=== PATIENT | female | born 1985 | race Two or more races ===

== ENCOUNTER 2024-04-04 20:10 | Observation (INO) | payer OTHER, SELFPAY ==
[2024-04-04] VITALS (23 sets, daily range): BP systolic 108–138; BP diastolic 81–108; PULSE 95–114; TEMP 36.6; O2SAT 93–97; BMI 36.0
--- NOTE | 2024-04-04 20:50 | ED_ITS ---
HPI HPI - General Adult General Chief complaint: Shortness of Breath/Dyspnea Stated complaint: SHORTNESS OF BREATH Time Seen by Provider: 04/04/24 20:32 Source: patient Mode of arrival: walk-in Limitations: no limitations History of Present Illness HPI narrative: patient describes taking omeprazole at the end of february and experiencing an atypical side effect of swelling bilat neck . States she stop omeprazole 4 days after beginning omeprazole. States was seen at another hospital and prescribed 5 day course of steroids that she completed yesterday. Does feel it made any difference. States she will occ choked when swallowing and gag it back up. not short of breath. No fever or sore throat Related Data Previous Rx's ?Medication ?Instructions ?Recorded enoxaparin 80 mg/0.8 mL 80 mg (0.8 mL) subcut Q12H 30 days 04/05/24 subcutaneous syringe (Lovenox) #48 mL hydroxyzine HCl 25 mg tablet 25 mg PO Q8H PRN anxiety #30 tabs 04/05/24 Allergies Allergy/AdvReac Type Severity Reaction Status Date / Time No Known Drug Allergies Allergy Verified 04/04/24 20:19 Opioid HPI Opioid Management Most Recent Opioid Data: Last Pain Scale 7 04/06/24 18:01 Last Pain Assessment 04/05/24 12:03 Last MAR Pain Assessment 04/06/24 18:01 Last ORT Total Score 1 04/05/24 02:14 Last ORT Risk Category Low Risk 04/05/24 02:14 Review of Systems ROS Status of ROS 10 or more systems reviewed and unremark able except as noted in history and below PFSH PFSH Medical History (Updated 04/06/24 @ 17:55 by Dionicio Albright MD) Post hysterectomy menopause ?E89.40 - Asymptomatic postprocedural ovarian failure (ICD-10) ?Z90.710 - Acquired absence of both cervix and uterus (ICD-10) Fibroid ?D21.9 - Benign neoplasm of connective and other soft tissue, unspecified (ICD-10) Surgical History (Updated 04/05/24 @ 10:19 by Shaikh Janna MD) H/O: hysterectomy ?Z90.710 - Acquired absence of both cervix and uterus (ICD-10) Social History Highest level of school completed/degree received: 3rd grade Gender Identity: female Exam Constitutional Vital Signs, click to edit/add: Last Vital Signs Temp 98.4 F 04/05/24 07:26 Pulse 116 H 04/05/24 09:53 Resp 16 04/05/24 07:26 BP 125/85 04/05/24 07:26 Pulse Ox 96 04/05/24 09:53 O2 Del Method Room Air 04/05/24 07:26 Common normals: no apparent distress, oriented x3, no limitations, healthy appearing, alert and well nourished [facility] Common normals: normocephalic and head/scalp atraumatic Eye Common normals: EOMs intact bilaterally and conjunctivae normal Neck & C-Spine Common normals: full ROM, no lymphadenopathy and supple Other: neg stridor Respiratory Common normals: normal respiratory effort, no retractions, no use of accessory muscles and clear to auscultation bilaterally Cardio Common normals: regular rate, regular rhythm, S1 normal heart sound and S2 normal heart sound GI Common normals: Normal to inspection, nondistended, normoactive bowel sounds present, soft to palpation and non-tender Extremity Common normals: normal to inspection and full ROM Neuro Common normals: oriented x3, CN's II-XII intact bilaterally, moves all extremities and no focal motor deficits Psych Appearance: grossly normal Course Vital Signs Vital signs: Vital Signs Temperature 97.9 F 04/04/24 20:19 Pulse Rate 109 H 04/04/24 20:19 Respiratory Rate 16 04/04/24 20:19 Blood Pressure 138/108 H 04/04/24 20:19 Pulse Oximetry 95 04/04/24 20:19 Oxygen Delivery Method Room Air 04/04/24 20:19 Temperature 98.4 F 04/05/24 07:26 Pulse Rate 116 H 04/05/24 09:53 Respiratory Rate 16 04/05/24 07:26 Blood Pressure 125/85 04/05/24 07:26 Pulse Oximetry 96 04/05/24 09:53 Oxygen Delivery Method Room Air 04/05/24 07:26 Medical Decision Making MDM Narrative Medical decision making narrative: patient presents complaining of puffiness and swelling of her neck for the past month. Was seen at [place] last week with the same complaint. Prescribe course of steroids that she completed yesterday. States it did not help and came here to be seen. Ate [employer] chicken this afternoon. Able to eat and drink but has some discomfort with swallowing. no difficulty breathing. No fever. Exam unremarkable except for puffiness about her neck and palpable lymph nodes. oral pharynx and uvula normal. no stridor and patient observed drinking fluids without gagging. CT with finding of large mediastinal mass and finding suggesting thrombus within the left IJ, subclavian and axillary veins. Discussed with vascular surgery at [facility] and with thoracic surgeon Dr Anderson at [facility]. [place] the patient needed to be anticoagulated but could have remaining workup as an out patient as she had no respiratory issues and was eating and drinking. Discussed with Dr Erickson oncologist and added labs to r/o rapid lymphoma. He felt she needed a biopsy and recommended observation tonight and he could consult with Dr White tomorrow. If Christopher was uncomfortable performing the procedure he could help to facilitate transfer to another facility where the procedure could be performed. Patient given dose of Lovenox and informed of the plan. She is sitting comfortably in no distress at this time Lab Data Labs: Lab Results 04/04/24 Range/Units 21:07 WBC 11.9 H (4.0-11.0) 10^3/uL RBC 5.53 H (4.20-5.40) 10^6/uL Hgb 13.5 (12.0-16.0) g/dL Hct 44.7 (36.0-48.0) % MCV 80.8 L (81.0-99.0) fL MCH 24.4 L (26.7-34.0) pg MCHC 30.2 (29.9-35.2) g/dL RDW 15.9 H (11.0-15.0) % Plt Count 461 H (150-450) 10^3/uL MPV 9.1 L (9.5-13.5) fL Neut % (Auto) 59.2 (43.0-75.0) % Lymph % (Auto) 27.2 (20.5-60.0) % Gonzales % (Auto) 9.0 (1.7-12.0) % Eos % (Auto) 2.2 (0.9-7.0) % Baso % (Auto) 0.6 (0.2-2.0) % Neut # (Auto) 7.1 H (1.4-6.5) 10^3/uL Lymph # (Auto) 3.2 (1.2-3.8) 10^3/uL Gonzales # (Auto) 1.1 H (0.3-0.8) 10^3/uL Eos # (Auto) 0.3 (0.0-0.7) 10^3/uL Baso # (Auto) 0.1 (0.0-0.1) 10^3/uL Abs Immat Gran (auto) 0.21 H (0.00-0.03) 10^3/uL Imm/Tot Granulo (auto) 1.8 H (0.0-0.5) % ESR >130 H (<=20) mm/hr Sodium 137 (136-145) mmol/L Potassium 3.4 L (3.5-5.1) mmol/L Chloride 99 (98-107) mmol/L Carbon Dioxide 26.0 (21.0-32.0) mmol/L Anion Gap 15.4 BUN 17.0 (7.0-18.0) mg/dL Creatinine 0.75 (0.55-1.02) mg/dL Est GFR ( Amer) >60 (>=60) Est GFR (Non-Af Amer) >60 (>=60) BUN/Creatinine Ratio 22.7 Glucose 86 (74-106) mg/dL Uric Acid 4.3 (2.6-6.0) mg/dL Calcium 9.1 (8.5-10.1) mg/dL Total Bilirubin 0.9 (0.2-1.0) mg/dL AST 66 H (15-37) U/L ALT 151 H (14-59) U/L Alkaline Phosphatase 176 H (46-116) U/L Lactate Dehydrogenase 373 H (81-234) U/L C-Reactive Protein 2.27 H (<=0.50) mg/dL Total Protein 8.7 H (6.4-8.2) g/dL Albumin 3.6 (3.4-5.0) g/dL Globulin 5.1 g/dL Albumin/Globulin Ratio 0.7 Procalcitonin <0.05 (0.00-0.50) ng/mL TSH 3.065 (0.358-3.740) uIU/mL Free T4 1.38 (0.76-1.46) ng/dL Imaging Data Chest x-ray: Radiologist's impression: ITS Impressions Soft Tissue Neck CT 04/04/24 20:57 IMPRESSION: 1. Large mediastinal mass with arterial encasement and compression of the superior vena cava. 2. Additional findings suggesting thrombus within the left internal jugular vein, as well as both subclavian and axillary veins. 3. An associated retropharyngeal effusion and edema within the neck is likely related to central venous obstruction. 4. Irregular patchy region of opacity within the anterior right lung could reflect infiltrate and/or a mass. 5. A dedicated CT of the chest is recommended for further assessment of the mediastinum and lungs. Electronically authenticated by: KEVEN DELEON Date: 04/04/2024 22:09 ADDENDUM: 04/05/24 0229 IMPRESSION: 1. Large mediastinal mass with arterial encasement and compression of the superior vena cava. 2. Additional findings suggesting thrombus within the left internal jugular vein, as well as both subclavian and axillary veins. 3. An associated retropharyngeal effusion and edema within the neck is likely related to central venous obstruction. 4. Irregular patchy region of opacity within the anterior right lung could reflect infiltrate and/or a mass. 5. A dedicated CT of the chest is recommended for further assessment of the mediastinum and lungs. Electronically authenticated by: KEVEN DELEON Date: 04/05/2024 02:[address] 04/04/24 23:08 IMPRESSION: 1. Very large soft tissue mass in the anterior mediastinum with extension along the superior mediastinum and most likely in the right hilum measuring 10.9 x 3.8 x 15.0 cm. There is mass effect on the eduardo and left mainstem bronchus. Differential considerations include lymphoma, teratoma and thymoma. Contrast-enhanced imaging is recommended for better characterization of the mass. 2. Ill defined nodular density in the right upper lobe which could be secondary to a neoplastic nodule or developing pneumonia. 3. Inhomogeneous attenuation of the liver which may represent inhomogeneous fatty infiltration. An infiltrative process of the liver cannot entirely be excluded. This could be better characterized with nonemergent hepatic protocol MRI. 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
--- NOTE | 2024-04-04 20:57 | CT_ITS ---
The [address] [address] Patient Name: SONYA MEYER MRN: [id number] date: 1985 Sex: F Assigned Patient Location: ER Current Patient Location: ER Accession/Order Number: [id number] Exam Date: 04/04/2024 21:20 Report Date: 04/04/2024 22:09 At the request of: ABBI VYAS Procedure: CT soft tissue neck w con EXAM: CT soft tissue neck w con HISTORY: bilat neck swelling COMPARISON: None. TECHNIQUE: Axial images of the neck were obtained following the intravenous administration of contrast. Sagittal and coronal reformations were provided. FINDINGS: There is a large mediastinal mass encases the brachiocephalic and left common carotid at their common origin from the aortic arch. Tumor is also seen to partially encase the left subclavian artery at its origin and compress the left superior vena cava. Abnormal intravascular filling defects left internal jugular vein, as well as both subclavian and axillary veins is suggestive of thrombus. An associated retropharyngeal effusion and edema within the neck is likely related to central venous obstruction. Asymmetrically prominent lymph nodes within the lower left neck are noted and may be pathologic. The pharynx, larynx and trachea appear normal. The thyroid enhances homogeneously. The salivary glands and intracranial contents are normal in appearance. There is an irregular patchy region of opacity within the anterior right lung which could reflect infiltrate and/or mass. The left lung is well-aerated. The No bony destructive process. The visualized paranasal sinuses and mastoids are well-aerated. CT/CT soft tissue neck w con IMPRESSION: 1. Large mediastinal mass with arterial encasement and compression of the superior vena cava. 2. Additional findings suggesting thrombus within the left internal jugular vein, as well as both subclavian and axillary veins. 3. An associated retropharyngeal effusion and edema within the neck is likely related to central venous obstruction. 4. Irregular patchy region of opacity within the anterior right lung could reflect infiltrate and/or a mass. 5. A dedicated CT of the chest is recommended for further assessment of the mediastinum and lungs. Electronically authenticated by: KEVEN DELEON Date: 04/04/2024 22:09
--- NOTE | 2024-04-04 21:09 | ECG_ITS ---
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
[2024-04-04 21:14] LABS: Basophils Absolute Auto 0.1 10^3/uL (0.0-0.1); Basophils Percent Auto 0.6 % (0.2-2.0); Eosinophils Absolute Auto 0.3 10^3/uL (0.0-0.7); Eosinophils Percent Auto 2.2 % (0.9-7.0); Hematocrit 44.7 % (36.0-48.0); Hemoglobin 13.5 g/dL (12.0-16.0); Immature Granulocytes Abs Auto 0.21 10^3/uL (0.00-0.03); Immature Granulocytes Pct Auto 1.8 % (0.0-0.5); Lymphocytes Absolute Auto 3.2 10^3/uL (1.2-3.8); Lymphocytes Percent Auto 27.2 % (20.5-60.0); Mean Corpuscular HGB Conc 30.2 g/dL (29.9-35.2); Mean Corpuscular Hemoglobin 24.4 pg (26.7-34.0); Mean Corpuscular Volume 80.8 fL (81.0-99.0); Mean Platelet Volume 9.1 fL (9.5-13.5); Monocytes Absolute Auto 1.1 10^3/uL (0.3-0.8); Neutrophils Absolute Auto 7.1 10^3/uL (1.4-6.5); Neutrophils Percent Auto 59.2 % (43.0-75.0); Platelet Count 461 10^3/uL (150-450); Red Blood Count 5.53 10^6/uL (4.20-5.40); Red Cell Distribution Width 15.9 % (11.0-15.0); White Blood Count 11.9 10^3/uL (4.0-11.0)
--- NOTE | 2024-04-04 21:14 | PC.NURSE ---
Pt reports upper anterior neck pain and swelling, no visible swelling noted but reports it is more swollen than normal. Pts airway is intact. Pt has no crepitus upon palpation of neck. Pt has left sided chest pain after palpation. Denies cardiac hx.
[2024-04-04 21:28] LABS: Alanine Aminotransferase 151 U/L (14-59); Albumin Globulin Ratio 0.7; Albumin Level 3.6 g/dL (3.4-5.0); Alkaline Phosphatase 176 U/L (46-116); Anion Gap 15.4; Aspartate Amino Transferase 66 U/L (15-37); BUN Creatinine Ratio 22.7; Bilirubin Total 0.9 mg/dL (0.2-1.0); Calcium 9.1 mg/dL (8.5-10.1); Chloride 99 mmol/L (98-107); Erythrocyte Sedimentation Rate >130 mm/hr (<=20); Estimated GFR (African America >60 (>=60); Estimated GFR (Non-African Ame >60 (>=60); Globulin 5.1 g/dL; Glucose 86 mg/dL (74-106); Potassium 3.4 mmol/L (3.5-5.1); Sodium 137 mmol/L (136-145); Total Protein 8.7 g/dL (6.4-8.2)
[2024-04-04 21:36] LABS: Free T4 1.38 ng/dL (0.76-1.46)
[2024-04-04 21:37] LABS: C Reactive Protein 2.27 mg/dL (<=0.50); Thyroid Stimulating Hormone 3.065 uIU/mL (0.358-3.740)
--- NOTE | 2024-04-04 23:08 | CT_ITS ---
[address] [address] Patient Name: SONYA MEYER MRN: [id number] date: 1985 Sex: F Assigned Patient Location: ER Current Patient Location: Accession/Order Number: [id number] Exam Date: 04/04/2024 23:15 Report Date: 04/05/2024 00:16 At the request of: ABBI VYAS Procedure: CT chest wo con EXAMINATION:CT chest wo con INDICATION:mass COMPARISON:No prior chest CT for comparison. TECHNIQUE:Thin section transaxial slices were acquired through the chest. Coronal and sagittal reconstructed images were reviewed. IV CONTRAST:Without FINDINGS: LUNGS: There is an ill defined airspace nodularity in the right upper lobe measuring 2.9 x 1.6 cm which is nonspecific. This could represent a neoplastic nodule versus developing infection. PLEURAL CAVITY: No pleural effusion. MEDIASTINUM: There is mass effect on the eduardo and left mainstem bronchus. HEART: There is no coronary artery calcification. VASCULAR:The thoracic aorta is normal in caliber. LYMPH NODES:There is a very large soft tissue mass which is present in the anterior mediastinum with extension along the superior mediastinum. There is probable extension into the right hilum. It is difficult to give an accurate measurement of the mass without the use of intravenous contrast. Approximate measurement is 10.9 x 3.8 x 15.0 cm. ] CHEST WALL/AXILLA: Chest wall and axilla are unremarkable. BONES: Osseous structures are unremarkable. VISUALIZED UPPER ABDOMEN: There is inhomogeneous attenuation of the liver which is nonspecific. This could represent inhomogeneous fatty infiltration of the liver. An infiltrative process within the liver cannot be excluded. CT/CT chest wo con IMPRESSION: 1. Very large soft tissue mass in the anterior mediastinum with extension along the superior mediastinum and most likely in the right hilum measuring 10.9 x 3.8 x 15.0 cm. There is mass effect on the eduardo and left mainstem bronchus. Differential considerations include lymphoma, teratoma and thymoma. Contrast-enhanced imaging is recommended for better characterization of the mass. 2. Ill defined nodular density in the right upper lobe which could be secondary to a neoplastic nodule or developing pneumonia. 3. Inhomogeneous attenuation of the liver which may represent inhomogeneous fatty infiltration. An infiltrative process of the liver cannot entirely be excluded. This could be better characterized with nonemergent hepatic protocol MRI. Electronically authenticated by: CORDELL PARK Date: 04/05/2024 00:16
[2024-04-04 23:41] LABS: Lactate Dehydrogenase 373 U/L (81-234); Uric Acid 4.3 mg/dL (2.6-6.0)
[2024-04-05] VITALS (17 sets, daily range): BP systolic 110–147; BP diastolic 59–85; PULSE 100–118; TEMP 36.6–36.9; O2SAT 90–98; BMI 36.8
[2024-04-05] MEDS: ENOXAPARIN SODIUM 80 MG/0.8 ML SYRINGE SUBQ ×2 (00:10→08:19)
[2024-04-05 02:06] LABS: PROCALCITONIN <0.05 ng/mL (0.00-0.50)
[2024-04-05] MEDS: POTASSIUM CHLORIDE IN WATER 10 MEQ/100 ML PIGGYBACK 100 MEQ IV (03:08)
[2024-04-05 04:48] LABS: Basophils Absolute Auto 0.1 10^3/uL (0.0-0.1); Basophils Percent Auto 0.5 % (0.2-2.0); Eosinophils Absolute Auto 0.1 10^3/uL (0.0-0.7); Eosinophils Percent Auto 1.1 % (0.9-7.0); Hematocrit 44.2 % (36.0-48.0); Hemoglobin 13.1 g/dL (12.0-16.0); Immature Granulocytes Abs Auto 0.18 10^3/uL (0.00-0.03); Immature Granulocytes Pct Auto 1.4 % (0.0-0.5); Lymphocytes Absolute Auto 2.3 10^3/uL (1.2-3.8); Lymphocytes Percent Auto 17.9 % (20.5-60.0); Mean Corpuscular HGB Conc 29.6 g/dL (29.9-35.2); Mean Corpuscular Hemoglobin 24.6 pg (26.7-34.0); Mean Corpuscular Volume 82.9 fL (81.0-99.0); Mean Platelet Volume 9.9 fL (9.5-13.5); Monocytes Absolute Auto 0.9 10^3/uL (0.3-0.8); Monocytes Percent Auto 7.1 % (1.7-12.0); Neutrophils Absolute Auto 9.4 10^3/uL (1.4-6.5); Platelet Count 424 10^3/uL (150-450); Red Blood Count 5.33 10^6/uL (4.20-5.40); Red Cell Distribution Width 16.2 % (11.0-15.0); White Blood Count 13.1 10^3/uL (4.0-11.0)
--- NOTE | 2024-04-05 04:54 | PC.NURSE ---
Attempted to start IV medications. Patient got anxious and pursed lipped breathing and sweaty. Iv stopped vitals checked at this time and all within norml limits. IV site checked. No red guillen or streaking and skin same temp throughout. Allowed patient to calm down and attempted to restart at a slower rate. Patient again became anxious. IV stopped and Ofelia.Chasidy. notified.
[2024-04-05 05:10] LABS: Alanine Aminotransferase 146 U/L (14-59); Albumin Globulin Ratio 0.7; Albumin Level 3.5 g/dL (3.4-5.0); Alkaline Phosphatase 179 U/L (46-116); Anion Gap 14.5; Aspartate Amino Transferase 76 U/L (15-37); BUN Creatinine Ratio 25.5; Bilirubin Total 1.3 mg/dL (0.2-1.0); Calcium 9.3 mg/dL (8.5-10.1); Carbon Dioxide 22.2 mmol/L (21.0-32.0); Chloride 98 mmol/L (98-107); Estimated GFR (African America >60 (>=60); Estimated GFR (Non-African Ame >60 (>=60); Globulin 5.1 g/dL; Glucose 82 mg/dL (74-106); Potassium 3.7 mmol/L (3.5-5.1); Sodium 131 mmol/L (136-145); Total Protein 8.6 g/dL (6.4-8.2)
[2024-04-05 05:14] LABS: Magnesium 2.4 mg/dL (1.8-2.4)
[2024-04-05] MEDS: DEXTROSE 5%-0.9% NACL 1,000 ML 1,000 ML 100 ML IV (08:19)
--- NOTE | 2024-04-05 10:13 | PM.HP ---
HPI H&P: HPI History of Present Illness Chief complaint: SHORTNESS OF BREATH SUPERIOR VENACAVA SYNDROME Narrative: HPI and Hospital Course 38-year-old female with no significant past medical history presented to ER last evening with neck swelling, dysphagia that has progressively gotten worse over the past 2 months. She started to feel neck swelling and mild difficulty in swallowing about 2 months ago that progressively got worse and until about 1 week ago she went to [place] [facility] where she was prescribed prednisone and Benadryl. She took her medications with no improvement in her symptoms whatsoever and was evaluated in ER last evening. She had a CT of neck and chest that showed subclavian/internal jugular and axillary vein thrombosis along with large mediastinal mass with mass effect on eduardo and left main bronchus. ER provider is with vascular and thoracic surgery at [facility] felt that patient can be worked up as outpatient given that she is tolerating oral diet and has no respiratory distress. ER provider also had consultation with oncology who felt in overnight observation is not unreasonable given her symptoms and presentation. She was started on subcutaneous Lovenox for deep vein thrombosis. I discussed her case with oncology who will see her in their office tomorrow. Given that patient has no respiratory distress and tolerating oral diet, it is felt that she can be worked up as outpatient which oncology will set her up for at [facility]. This was discussed in great length with patient and she was comfortable injecting Lovenox herself. She has previously injected subcutaneous insulin to her dad. Patient denies fever or chills. Reports weight loss of about 5 pounds in 2 months. She has no personal history of cancer. She had hysterectomy about 2 years ago for large fibroids. She also denies significant family history of cancer Opioid HPI Opioid Management Most Recent Pain and Opioid Data: Last Pain Assessment 04/05/24 09:57 Last ORT Total Score 1 04/05/24 02:14 Last ORT Risk Category Low Risk 04/05/24 02:14 Review of Systems ROS Status of ROS 10 or more systems reviewed and unremarkable except as noted in history and below [facility] Medical History (Updated 04/05/24 @ 10:21 by Shaikh Janna MD) Post hysterectomy menopause ?E89.40 - Asymptomatic postprocedural ovarian failure (ICD-10) ?Z90.710 - Acquired absence of both cervix and uterus (ICD-10) Fibroid ?D21.9 - Benign neoplasm of connective and other soft tissue, unspecified (ICD-10) Surgical History (Updated 04/05/24 @ 10:19 by Shaikh Janna MD) H/O: hysterectomy ?Z90.710 - Acquired absence of both cervix and uterus (ICD-10) Social History Highest level of school completed/degree received: 3rd grade Gender Identity: female Meds Home Medications and Allergies Home Medications ?Medication ?Instructions ?Recorded ?Confirmed ?Type No Known Home Medications 04/04/24 04/04/24 History Allergies Allergy/AdvReac Type Severity Reaction Status Date / Time No Known Drug Allergies Allergy Verified 04/04/24 20:19 Exam Constitutional Vital Signs, click to edit/add: Last Vital Signs Temp 98.4 F 04/05/24 07:26 Pulse 116 H 04/05/24 09:53 Resp 16 04/05/24 07:26 BP 125/85 04/05/24 07:26 Pulse Ox 96 04/05/24 09:53 O2 Del Method Room Air 04/05/24 07:26 Documenting provider has reviewed patient's vital signs: yes Common normals: no apparent distress and oriented x3 General appearance: cooperative Neck & C-Spine Other: Neck swelling noted. Respiratory Common normals: normal respiratory effort and clear to auscultation bilaterally Effort & inspection: able to speak in complete sentences Auscultation: clear to auscultation bilaterally Cardio Common normals: regular rate, S1 normal heart sound and S2 normal heart sound Rate: regular rate Heart sounds: S1 normal and S2 normal GI Common normals: Normal to inspection, nondistended, normoactive bowel sounds present, soft to palpation, non-tender and no hepatosplenomegaly Palpation: soft and no hepatosplenomegaly Extremity Common normals: no clubbing, cyanosis or edema Neuro Common normals: oriented x3, moves all extremities and no focal motor deficits Psych Common normals: mental status grossly normal, denies hallucinations, denies homicidal ideation and denies suicidal ideation Results Labs Labs: Short CBC 04/04/24 04/05/24 Range/Units 21:07 04:04 WBC 11.9 H 13.1 H (4.0-11.0) 10^3/uL Hgb 13.5 13.1 (12.0-16.0) g/dL Hct 44.7 44.2 (36.0-48.0) % Plt Count 461 H 424 (150-450) 10^3/uL BMP 04/04/24 04/05/24 21:07 04:04 Sodium 137 131 L Potassium 3.4 L 3.7 Chloride 99 98 Carbon Dioxide 26.0 22.2 BUN 17.0 13.0 Creatinine 0.75 0.51 L Glucose 86 82 Calcium 9.1 9.3 Liver Function 04/04/24 04/05/24 Range/Units 21:07 04:04 Total Bilirubin 0.9 1.3 H (0.2-1.0) mg/dL AST 66 H 76 H (15-37) U/L ALT 151 H 146 H (14-59) U/L Alkaline Phosphatase 176 H 179 H (46-116) U/L Albumin 3.6 3.5 (3.4-5.0) g/dL Assessment and Plan Assessment and Plan (1) Superior vena cava compression syndrome: Assessment and Plan: Due to large superior mediastinal mass. No respiratory compromise and patient tolerating oral diet. Follow-up appointment with oncology tomorrow and further workup will be pursued as outpatient (2) DVT (deep venous thrombosis): Assessment and Plan: Provoked DVT -will discharge on subcutaneous Lovenox as she is anticipated to require biopsy. She can be transition to DOAC's once she has had biopsy. Qualifiers: DVT location: non-extremity vein Chronicity: acute Qualified Code(s): I82.90 - Acute embolism and thrombosis of unspecified vein (3) Mediastinal mass: Assessment and Plan: Large superior mediastinal mass with mass effect on eduardo and left main bronchus along with superior vena cava syndrome and deep vein thrombosis of subclavian, internal jugular and axillary veins. No evidence of respiratory compromise and patient is tolerating oral diet. She will need outpatient workup and follow-up. She has an appointment with oncology tomorrow (4) Elevated liver enzymes: Assessment and Plan: Likely nonalcoholic fatty liver disease. Outpatient follow-up (5) Dysphagia: Assessment and Plan: Mild dysphagia with hard foods. Tolerating soft diet. Continue with same. Qualifiers: Dysphagia type: oropharyngeal phase Qualified Code(s): R13.12 - Dysphagia, oropharyngeal phase (6) Abnormal CT of liver: Assessment and Plan: Possible fatty infiltration but given her current diagnosis, will need further inquiry to make sure these do not represent metastatic changes (7) Shortness of breath: Assessment and Plan: Mild shortness of breath things on exertion but otherwise comfortable on room air. No evidence of respiratory compromise. Stable for discharge and outpatient workup
--- NOTE | 2024-04-05 12:08 | CM.NOTE ---
Rounds made with Dr. Saldivar. Discussed plan of care and lab & imaging results w Samina. Samina verbalized understanding. Discussed options of possible transfer for further care or to discharge home on Lovenox sq, to followup with Oncology and have them set up bronchoscopy as an outpatient. Samina states she would be ok with giving herself Lovenox injections and would like to see oncology as outpt and then have bronchoscopy. Plan is for patient to be discharged today and to followup with Oncology, Dr Erickson tomorrow.
--- NOTE | 2024-04-06 15:46 | CM.DCFOLLOWU ---
1st attempt 04/06/24
--- NOTE | 2024-04-07 15:10 | CM.DCFOLLOWU ---
Patient back in ED yesterday and was transferred to [facility]
== END 2024-04-05 12:13 | disposition home or self-care (01) ==
LOC: ER 04-05 01:33 → MS 04-05 02:12
PROVIDERS: Registered Nurse; Admitting Provider Internal Medicine; Emergency Provider Internal Medicine; PCP Family Medicine; Visit Provider Internal Medicine
DX: I87.1 Compression of vein (principal); I82.890 Acute embolism and thrombosis of other specified veins; J98.59 Other diseases of mediastinum, not elsewhere classified; R74.8 Abnormal levels of other serum enzymes; R13.12 Dysphagia, oropharyngeal phase; R93.2 Abnormal findings on diagnostic imaging of liver and biliary tract; R06.02 Shortness of breath
CPT/HCPCS: 36415; 70491; 71250; 80053; 83615; 83735; 84145; 84439; 84443; 84550; 85025; 85652; 86140; 87040; 93005; 96365; 96366; 96372; 99285; G0378; J0456; J1650; J3480; Q9967

== ENCOUNTER 2024-04-06 16:22 | Emergency (ER) | payer OTHER, SELFPAY ==
[2024-04-06] VITALS (63 sets, daily range): BP systolic 118–161; BP diastolic 75–102; PULSE 75–120; TEMP 36.6; O2SAT 89–100; BMI 36.0
--- NOTE | 2024-04-06 16:40 | XR_ITS ---
The [address] [address] Patient Name: SONYA MEYER MRN: [id number] date: 1985 Sex: F Assigned Patient Location: ER Current Patient Location: ER Accession/Order Number: [id number] Exam Date: 04/06/2024 17:02 Report Date: 04/06/2024 17:30 At the request of: GIA BEAN Procedure: XR chest 1V EXAM: XR chest 1V HISTORY: SOB and facial swelling, known mass COMPARISON: 04/04/2024 TECHNIQUE: Chest X-ray AP, 1 view FINDINGS: Support devices: None. Lungs/pleura: No pneumothorax. Unchanged 3 cm right upper lobe airspace opacity. Heart and mediastinum: Widened mediastinum, representing anterior mediastinal mass Bones: No acute abnormality identified. XR/XR chest 1V Impression: No significant interval change in widened mediastinum and the right upper lobe airspace opacity. Since patient has facial swelling, there is concern for SVC syndrome. CT of the chest with contrast is recommended for better evaluation. Electronically authenticated by: ED WEST Date: 04/06/2024 17:30
--- NOTE | 2024-04-06 16:40 | ECG_ITS ---
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
[2024-04-06 17:07] LABS: Basophils Percent Auto 0.3 % (0.2-2.0); Eosinophils Absolute Auto 0.1 10^3/uL (0.0-0.7); Eosinophils Percent Auto 1.4 % (0.9-7.0); Hematocrit 40.7 % (36.0-48.0); Hemoglobin 12.7 g/dL (12.0-16.0); Immature Granulocytes Abs Auto 0.09 10^3/uL (0.00-0.03); Immature Granulocytes Pct Auto 0.9 % (0.0-0.5); Lymphocytes Absolute Auto 1.7 10^3/uL (1.2-3.8); Mean Corpuscular HGB Conc 31.2 g/dL (29.9-35.2); Mean Corpuscular Hemoglobin 24.5 pg (26.7-34.0); Mean Corpuscular Volume 78.4 fL (81.0-99.0); Mean Platelet Volume 9.5 fL (9.5-13.5); Monocytes Percent Auto 10.1 % (1.7-12.0); Neutrophils Absolute Auto 7.2 10^3/uL (1.4-6.5); Neutrophils Percent Auto 70.3 % (43.0-75.0); Platelet Count 433 10^3/uL (150-450); Red Blood Count 5.19 10^6/uL (4.20-5.40); Red Cell Distribution Width 15.6 % (11.0-15.0); White Blood Count 10.3 10^3/uL (4.0-11.0)
[2024-04-06 17:15] LABS: Anion Gap 15.3; BUN Creatinine Ratio 14.9; Calcium 8.9 mg/dL (8.5-10.1); Carbon Dioxide 24.1 mmol/L (21.0-32.0); Chloride 95 mmol/L (98-107); Estimated GFR (African America >60 (>=60); Estimated GFR (Non-African Ame >60 (>=60); Glucose 152 mg/dL (74-106); Potassium 3.4 mmol/L (3.5-5.1); Sodium 131 mmol/L (136-145)
--- NOTE | 2024-04-06 17:37 | ED.GENADUL1 ---
HPI HPI - General Adult General Chief complaint: Shortness of Breath/Dyspnea Stated complaint: Shortness of Breath Time Seen by Provider: 04/06/24 16:27 Source: patient and family Mode of arrival: Wheelchair History of Present Illness HPI narrative: 38-year-old female presents to the emergency department for shortness of breath. She was sent here by her oncologist who saw her today. His intention was to get her transferred up to [facility]. She is scheduled for bronchoscopy and apparent biopsy tomorrow. This mass that was found in her chest is a recent diagnosis. She had been admitted to this hospital overnight and was discharged home yesterday and then the oncologist saw her today and sent her here. She was found to be tachycardic at the oncologist office and she had mild tachycardia upon arrival. states that her face and neck seem to be more swollen Related Data Previous Rx's ?Medication ?Instructions ?Recorded enoxaparin 80 mg/0.8 mL 80 mg (0.8 mL) subcut Q12H 30 days 04/05/24 subcutaneous syringe (Lovenox) #48 mL hydroxyzine HCl 25 mg tablet 25 mg PO Q8H PRN anxiety #30 tabs 04/05/24 Allergies Allergy/AdvReac Type Severity Reaction Status Date / Time No Known Drug Allergies Allergy Verified 04/04/24 20:19 Opioid HPI Opioid Management Most Recent Opioid Data: Last Pain Scale 7 04/06/24 18:01 Last Pain Assessment 04/05/24 12:03 Last MAR Pain Assessment 04/06/24 18:01 Last ORT Total Score 1 04/05/24 02:14 Last ORT Risk Category Low Risk 04/05/24 02:14 Review of Systems ROS Narrative A ten point review of systems is negative except as noted above. PFSH [facility] Medical History (Updated 04/06/24 @ 17:55 by Dionicio Albright MD) Post hysterectomy menopause ?E89.40 - Asymptomatic postprocedural ovarian failure (ICD-10) ?Z90.710 - Acquired absence of both cervix and uterus (ICD-10) Fibroid ?D21.9 - Benign neoplasm of connective and other soft tissue, unspecified (ICD-10) Surgical History (Updated 04/05/24 @ 10:19 by Shaikh Janna MD) H/O: hysterectomy ?Z90.710 - Acquired absence of both cervix and uterus (ICD-10) Social History Highest level of school completed/degree received: 3rd grade Gender Identity: female Exam Narrative Exam Narrative: Nurses note and vital signs reviewed and patient is not hypoxic. General: The patient appears well and in no apparent distress. Patient is resting comfortably on cart. Skin: Warm, dry, no pallor noted. There is no rash noted. Head: Her face and neck have swelling. She is handling oral secretions well Eye: Normal conjunctiva, no drainage Ears, Nose, Mouth, and Throat: oral mucosa is moist. Nares patent. Cardiovascular: Regular Rate and Rhythm, mildly tachycardic Respiratory: Patient is in no distress, no accessory muscle use, lungs are clear to auscultation, no wheezing, rales or rhonchi Back: non-tender, no CVA tenderness bilaterally to percussion. GI: Soft and nontender Musculoskeletal: The patient has no evidence of calf tenderness, no pitting edema, symmetrical pulses noted bilaterally Neurological: A&O, normal speech Psychiatric: Cooperative Constitutional Vital Signs, click to edit/add: Last Vital Signs Temp 98 F 04/06/24 16:31 Pulse 98 H 04/06/24 18:24 Resp 23 H 04/06/24 18:24 BP 132/78 04/06/24 18:24 Pulse Ox 98 04/06/24 18:24 O2 Del Method Room Air 04/06/24 16:31 Course Vital Signs Vital signs: Vital Signs Temperature 98 F 04/06/24 16:31 Pulse Rate 118 H 04/06/24 16:31 Respiratory Rate 28 H 04/06/24 16:31 Blood Pressure 131/86 04/06/24 16:31 Pulse Oximetry 96 04/06/24 16:31 Oxygen Delivery Method Room Air 04/06/24 16:31 Temperature 98 F 04/06/24 16:31 Pulse Rate 98 H 04/06/24 18:24 Respiratory Rate 23 H 04/06/24 18:24 Blood Pressure 132/78 04/06/24 18:24 Pulse Oximetry 98 04/06/24 18:24 Oxygen Delivery Method Room Air 04/06/24 16:31 Medical Decision Making MDM Narrative Medical decision making narrative: I have spoken to Dr. Erickson and his request Dr. Mclean, who is a exceptional student education aide at [facility]. The patient is scheduled for bronchoscopy tomorrow and Dr. Erickson and I discussed the case and the patient at his request will be transferred up to [facility] today. Dr. Mclean is aware and agrees with this plan. The transfer process has been initiated. Differential Diagnosis Differential Diagnosis: Lung mass, tumor, dyspnea, pneumothorax, pneumonia Lab Data Lab results reviewed: Yes I reviewed the patient's lab results Labs: Lab Results 04/06/24 Range/Units 16:47 WBC 10.3 (4.0-11.0) 10^3/uL RBC 5.19 (4.20-5.40) 10^6/uL Hgb 12.7 (12.0-16.0) g/dL Hct 40.7 (36.0-48.0) % MCV 78.4 L (81.0-99.0) fL MCH 24.5 L (26.7-34.0) pg MCHC 31.2 (29.9-35.2) g/dL RDW 15.6 H (11.0-15.0) % Plt Count 433 (150-450) 10^3/uL MPV 9.5 (9.5-13.5) fL Neut % (Auto) 70.3 (43.0-75.0) % Lymph % (Auto) 17.0 L (20.5-60.0) % [place] % (Auto) 10.1 (1.7-12.0) % Eos % (Auto) 1.4 (0.9-7.0) % Baso % (Auto) 0.3 (0.2-2.0) % Neut # (Auto) 7.2 H (1.4-6.5) 10^3/uL Lymph # (Auto) 1.7 (1.2-3.8) 10^3/uL [place] # (Auto) 1.0 H (0.3-0.8) 10^3/uL Eos # (Auto) 0.1 (0.0-0.7) 10^3/uL Baso # (Auto) 0.0 (0.0-0.1) 10^3/uL Abs Immat Gran (auto) 0.09 H (0.00-0.03) 10^3/uL Imm/Tot Granulo (auto) 0.9 H (0.0-0.5) % Sodium 131 L (136-145) mmol/L Potassium 3.4 L (3.5-5.1) mmol/L Chloride 95 L (98-107) mmol/L Carbon Dioxide 24.1 (21.0-32.0) mmol/L Anion Gap 15.3 BUN 11.0 (7.0-18.0) mg/dL Creatinine 0.74 (0.55-1.02) mg/dL Est GFR ( Amer) >60 (>=60) Est GFR (Non-Af Amer) >60 (>=60) BUN/Creatinine Ratio 14.9 Glucose 152 H (74-106) mg/dL Calcium 8.9 (8.5-10.1) mg/dL Imaging Data Chest x-ray: Radiologist's impression: ITS Impressions Chest X-Ray 04/06/24 16:40 Impression: No significant interval change in widened mediastinum and the right upper lobe airspace opacity. Since patient has facial swelling, there is concern for SVC syndrome. CT of the chest with contrast is recommended for better evaluation. Electronically authenticated by: [facility] Date: 04/06/2024 17:30 ECG Data Attestation: I personally reviewed and interpreted this ECG as follows: (EKG on my interpretation shows sinus rhythm, tachycardic, no acute change) Discharge Plan Discharge Chief Complaint: Shortness of Breath/Dyspnea Clinical Impression: Lung mass Patient Disposition: [facility] Time of Disposition Decision: 17:48 Discharge Location: [facility] Condition: Fair Mode of Transportation: EMS
[2024-04-06] MEDS: MORPHINE SULFATE 4 MG/ML VIAL IV ×2 (18:01→23:52)
[2024-04-06] MEDS: 0.9 % SODIUM CHLORIDE 1,000 ML 1000 ML IV (18:15)
[2024-04-06] MEDS: ONDANSETRON PF 4 MG/2 ML VIAL IV (23:52)
[2024-04-07] VITALS (30 sets, daily range): BP systolic 119–152; BP diastolic 70–107; PULSE 87–116; O2SAT 85–96
[2024-04-07] MEDS: DEXAMETHASONE SOD PHOS 10 MG/ML VIAL IV (04:17)
== END 2024-04-07 05:10 | disposition short-term general hospital (02) ==
PROVIDERS: Emergency Medicine; Emergency Provider Emergency Medicine; PCP Family Medicine
DX: R91.8 Other nonspecific abnormal finding of lung field (principal)
CPT/HCPCS: 36415; 71045; 80048; 85025; 93005; 96374; 96375; 96376; 99285; J1100; J2270; J2405

== ENCOUNTER 2024-05-18 08:08 | Outpatient (OUT) | payer OTHER, SELFPAY | END 2024-05-18 08:09 | disposition home or self-care (01) | PROVIDERS: PCP Family Medicine; Visit Provider Internal Medicine Hematology & Oncology | DX: C38.1 Malignant neoplasm of anterior mediastinum (principal); I82.B11 Acute embolism and thrombosis of right subclavian vein; D50.9 Iron deficiency anemia, unspecified; K90.9 Intestinal malabsorption, unspecified; C91.00 Acute lymphoblastic leukemia not having achieved remission | CPT/HCPCS: G0463 ==

== ENCOUNTER 2024-05-26 15:24 | Emergency (ER) | payer OTHER, SELFPAY ==
[2024-05-26 15:39] VITALS: BP 181/104; PULSE 109; TEMP 36.9; O2SAT 95; BMI 31.5
--- NOTE | 2024-05-26 16:18 | ED_ITS ---
HPI HPI - General Adult General Chief complaint: Recheck/Abnormal Lab/Rx Stated complaint: ABNORMAL Lab Time Seen by Provider: 05/26/24 16:14 Source: patient Mode of arrival: Wheelchair Limitations: no limitations History of Present Illness HPI narrative: Patient is a 38-year-old female who is presenting to the ER with an abnormal lab result as an outpatient from this morning. Patient has T lymphoblastic lymphoma. Patient had this diagnosed a few months ago. Patient's oncologist is from the [facility]. Patient is a very rare case, [facility] oncologist stated that this is typically a childhood lymphoma not adult. Patient is a , she has had a hysterectomy. Patient's oncologist at the [facility] is Dr. Swift. Patient is at bedside as well. Patient came to [facility] today for outpatient lab draw. The results were sent to the oncology office at [facility]. Patient was told to come to the ER today to be evaluated. Patient has mild nausea. Patient slightly anxious because she is nervous about going back into the hospital again and patient says she was just discharged from the hospital 4 days ago. is at bedside. All systems are negative except as noted/marked. All systems reviewed and otherwise negative. Nurses note and vital signs reviewed and patient is not hypoxic. General: The patient appears well and in no apparent distress. Patient is resting comfortably on cart. Patient is not toxic, lethargic, or listless Skin: Warm, dry, no pallor noted. There is no rash noted. No petechiae, purpura. Head: Normocephalic, atraumatic Eye: Normal conjunctiva, no drainage, EOMI. PERRL Ears, Nose, Mouth, and Throat: oral mucosa is moist. Patient has a Corpak in place. Nares patent. Mouth without vesicles. Cardiovascular: Regular Rate and Rhythm, no murmur, gallop, rub Respiratory: Patient is in no distress, no accessory muscle use, lungs are clear to auscultation, no wheezing, rales or rhonchi Back: non-tender, no CVA tenderness bilaterally to percussion. No CT LS midline pain GI: Soft, no tenderness to palpation, no masses appreciated. No rebound, guarding, or rigidity noted. No distention. No suprapubic tenderness to palpation. Musculoskeletal: Patient has full range of motion of all of the extremities, no motor, sensory, or focal neurological deficits. Patient has a PICC line to the right upper extremity, the area is clean, dry, intact. Neurological: A&O x4, normal speech Psychiatric: Cooperative Related Data Home Medications ?Medication ?Instructions ?Recorded ?Confirmed acyclovir 400 mg tablet 400 mg PO BID 05/26/24 05/26/24 cetirizine 10 mg tablet (24Hour 5 mg PO DAILY 05/26/24 05/26/24 Allergy) gabapentin 300 mg capsule 300 mg PO BID 05/26/24 05/26/24 levofloxacin 500 mg tablet 500 mg PO DAILY 05/26/24 05/26/24 ondansetron HCl 8 mg tablet 8 mg PO Q8H 05/26/24 05/26/24 pantoprazole 20 mg tablet,delayed 20 mg PO DAILY 05/26/24 05/26/24 release Previous Rx's ?Medication ?Instructions ?Recorded enoxaparin 80 mg/0.8 mL 80 mg (0.8 mL) subcut Q12H 30 days 04/05/24 subcutaneous syringe (Lovenox) #48 mL hydroxyzine HCl 25 mg tablet 25 mg PO Q8H PRN anxiety #30 tabs 04/05/24 Allergies Allergy/AdvReac Type Severity Reaction Status Date / Time No Known Drug Allergies Allergy Verified 04/04/24 20:19 Opioid HPI Opioid Management Most Recent Opioid Data: Last Pain Scale 9 05/26/24 18:37 Last MAR Pain Assessment 05/26/24 18:37 Last ORT Total Score 1 04/05/24 02:14 Last ORT Risk Category Low Risk 04/05/24 02:14 PFSH PFSH Medical History (Updated 05/26/24 @ 18:54 by Santhosh Holm MD) Post hysterectomy menopause ?E89.40 - Asymptomatic postprocedural ovarian failure (ICD-10) ?Z90.710 - Acquired absence of both cervix and uterus (ICD-10) Fibroid ?D21.9 - Benign neoplasm of connective and other soft tissue, unspecified (ICD-10) Surgical History (Updated 04/05/24 @ 10:19 by Shaikh Janna MD) H/O: hysterectomy ?Z90.710 - Acquired absence of both cervix and uterus (ICD-10) Social History Highest level of school completed/degree received: 3rd grade Gender Identity: female Exam Constitutional Vital Signs, click to edit/add: Last Vital Signs Temp 98.4 F 05/26/24 15:39 Pulse 109 H 05/26/24 15:39 Resp 18 05/26/24 15:39 BP 181/104 H 05/26/24 15:39 Pulse Ox 95 05/26/24 15:39 O2 Del Method Room Air 05/26/24 15:39 Course Vital Signs Vital signs: Vital Signs Temperature 98.4 F 05/26/24 15:39 Pulse Rate 109 H 05/26/24 15:39 Respiratory Rate 18 05/26/24 15:39 Blood Pressure 181/104 H 05/26/24 15:39 Pulse Oximetry 95 05/26/24 15:39 Oxygen Delivery Method Room Air 05/26/24 15:39 Temperature 98.4 F 05/26/24 15:39 Pulse Rate 109 H 05/26/24 15:39 Respiratory Rate 18 05/26/24 15:39 Blood Pressure 181/104 H 05/26/24 15:39 Pulse Oximetry 95 05/26/24 15:39 Oxygen Delivery Method Room Air 05/26/24 15:39 Medical Decision Making MDM Narrative Medical decision making narrative: 1730 I have been calling the main campus number several times being disconnected from the [facility] with a number [phone]. I then called the transfer number trying to get somebody. I have spoken to Dixon who has been very helpful from the transfer line. I initially spoke to her at 1802 and she has been trying to find the on-call oncologist to help me with this patient's case. 1835 I have spoken to Dixon again from [facility] transfer line, and then I was able to speak to Dr. Roberts from the leukemia on-call attending physician team. Dr. Roberts is not recommending to do chest x-ray, blood cultures x 2, lab work, and start Vanco and Zosyn. Patient has been on Levaquin prophylactically. They stated that patient will need to be transferred to the [facility], but there are beds are tight and patient may need to be admitted to [facility] this evening. Dr Roberts is going to call Dr. Erickson who she has spoken to several times before to make sure the care is coordinated. 1845 Dr Roberts was reviewing patient's lab work and medications again. Patient received a Neupogen shot last week. This could account for patient's leukocytosis. Since patient looks well, feels well, has no fever, patient may be discharged and continue to follow-up with her oncologist. There is also confusion about chest x-ray the patient thought that she had in [place] tomorrow, Dr. Roberts did not see any evidence of this. I discussed this with patient and at discharge, and then patient stated the order for the chest x-ray disappeared off her order list from the [facility] but it was on there this afternoon. They will call Levon, the nurse for patient's oncologist and get further details on chest x-ray and further studies that need to be done. Urine culture was ordered on this patient as well, if positive we will call back to the patient and inform her of results and need for antibiotic. Patient is already taking Levaquin daily prophylactically. Multiple phone calls, significant amount of time was spent on the phone with consultants from the [facility], speaking to Dr. Roberts twice, speaking to Dixon 3 different times from the [facility] transfer line. Critical care time 31 minutes exclusive from separate billable procedures that were performed. The following was considered in the determination of critical care but not limited to the level of medical decision making, intensive cardiac and/or respiratory monitoring, frequent vital sign monitoring, evaluation of laboratory studies, evaluation of radiographic studies, oxygen monitoring, and constant monitoring and speaking to family at bedside Lab Data Labs: Lab Results 05/26/24 Range/Units 16:03 WBC 39.2 H* (4.0-11.0) 10^3/uL RBC 3.76 L (4.20-5.40) 10^6/uL Hgb 10.1 L (12.0-16.0) g/dL Hct 33.0 L (36.0-48.0) % MCV 87.8 (81.0-99.0) fL MCH 26.9 (26.7-34.0) pg MCHC 30.6 (29.9-35.2) g/dL RDW 29.6 H (11.0-15.0) % Plt Count 209 (150-450) 10^3/uL MPV 10.2 (9.5-13.5) fL Seg Neuts % (Manual) 71.0 (43.0-75.0) Band Neutrophils % 10.0 H (0-5) % Lymphocytes % (Manual) 10.0 L (20.5-60.0) % Monocytes % (Manual) 8.0 (1.7-12.0) % Eosinophils % (Manual) 0.0 L (0.9-7.0) % Basophils % (Manual) 0.0 L (0.2-2.0) % Myelocytes % 1.0 Neutrophils # (Manual) 27.83 H (1.4-6.5) 10^3/uL Band Neutrophils # 3.9 H (0.0-0.3) 10^3/uL Lymphocytes # (Manual) 3.92 H (1.20-3.80) 10^3/uL Monocytes # (Manual) 3.13 H (0.30-0.80) 10^3/uL Eosinophils # (Manual) 0.00 (0.00-0.70) 10^3/uL Basophils # (Manual) 0.00 (0.00-0.10) 10^3/uL Myelocytes # 0.39 Nucleated RBCs 4 Polychromasia 1+ Hypochromasia 1+ Anisocytosis 1+ Discharge Plan Discharge Stand Alone Forms: Work/School Release, Portal Instructions Chief Complaint: Recheck/Abnormal Lab/Rx Clinical Impression: Leukocytosis, Nausea Patient Disposition: Home, Self-Care Time of Disposition Decision: 18:53 Condition: Good Prescriptions / Home Meds: No Action enoxaparin [Lovenox] 80 mg/0.8 mL syringe 80 mg subcut Q12H 30 Days Qty: 48 0RF hydroxyzine HCl 25 mg tablet 25 mg PO Q8H PRN (Reason: anxiety) Qty: 30 0RF acyclovir 400 mg tablet 400 mg PO BID cetirizine [24Hour Allergy] 10 mg tablet 5 mg PO DAILY gabapentin 300 mg capsule 300 mg PO BID levofloxacin 500 mg tablet 500 mg PO DAILY ondansetron HCl 8 mg tablet 8 mg PO Q8H Rx Instructions: 1st dose 1-2 hr before radiation pantoprazole 20 mg tablet,delayed release (DR/EC) 20 mg PO DAILY Print Language: Montserratian Instructions: Acute Nausea and Vomiting (ED), Leukocytosis (ED) Additional Instructions: Call your oncology nurse mauricioorrow to find out more information about the chest x-ray that was ordered for tomorrow at the [facility]. I have spoken to Dr. Roberts several times this evening, part of your leukemia/lymphoma team. Referrals: MANISHA PITTS [Primary Care Provider] - 1 week Discharge Date/Time: 05/26/24 19:07
[2024-05-26 16:25] LABS: Hemoglobin 10.1 g/dL (12.0-16.0); Mean Corpuscular HGB Conc 30.6 g/dL (29.9-35.2); Mean Corpuscular Hemoglobin 26.9 pg (26.7-34.0); Mean Corpuscular Volume 87.8 fL (81.0-99.0); Mean Platelet Volume 10.2 fL (9.5-13.5); Platelet Count 209 10^3/uL (150-450); Red Blood Count 3.76 10^6/uL (4.20-5.40); Red Cell Distribution Width 29.6 % (11.0-15.0)
[2024-05-26 16:46] LABS: White Blood Count 39.2 10^3/uL (4.0-11.0)
[2024-05-26 16:48] LABS: Band Neutrophils Absolute 3.9 10^3/uL (0.0-0.3); Lymphocytes Absolute Manual 3.92 10^3/uL (1.20-3.80); Monocytes Absolute Manual 3.13 10^3/uL (0.30-0.80); Myelocytes Absolute Manual 0.39; Segmented Neut Absolute Manual 27.83 10^3/uL (1.4-6.5)
[2024-05-26 16:49] LABS: Anisocytosis 1+; Hypochromasia 1+; Nucleated Red Blood Cells 4; Polychromasia 1+
[2024-05-26] MEDS: ONDANSETRON PF 4 MG/2 ML VIAL IV (17:39)
[2024-05-26] MEDS: MORPHINE SULFATE 2 MG/ML SYRINGE IV (18:37)
[2024-05-26 19:45] LABS: Bilirubin Urine NEGATIVE (NEGATIVE); Blood Urine NEGATIVE (NEGATIVE); Clarity Urine CLEAR (CLEAR); Color Urine YELLOW (YELLOW); Glucose Urine UA NEGATIVE (NEGATIVE); Ketones Urine NEGATIVE (NEGATIVE); Leukocyte Esterase Urine NEGATIVE (NEGATIVE); Nitrite Urine NEGATIVE (NEGATIVE); Protein Urine TRACE mg/dL (NEG/TRACE); Urobilinogen Urine 0.2 EU/dL (0.2-1.0)
[2024-05-26 19:53] LABS: Bacteria Urine TRACE #/HPF (NONE SEEN); Cast Seen? NONE SEEN #/LPF (NONE SEEN); Crystals Seen? None Seen #/HPF (None Seen); Mucus Urine MODERATE (NONE SEEN); RBC Urine 0-2 #/HPF (0-2); Squamous Epithelial Cell Urine FEW #/LPF (NONE/RARE); Urine Culture Indicated ALREADY ORDERED; WBC Urine 0-2 #/HPF (NONE SEEN)
== END 2024-05-26 19:07 | disposition home or self-care (01) ==
PROVIDERS: Emergency Provider Emergency Medicine; PCP Family Medicine
DX: D72.829 Elevated white blood cell count, unspecified (principal); R11.0 Nausea; C83.50 Lymphoblastic (diffuse) lymphoma, unspecified site; Z90.710 Acquired absence of both cervix and uterus; R82.998 Other abnormal findings in urine
CPT/HCPCS: 36415; 36591; 80053; 81001; 85007; 85027; 87086; 96374; 96375; 99195; 99284; J2270; J2405; Q0162

== ENCOUNTER 2024-06-02 07:24 | Outpatient (RCR) | payer OTHER, SELFPAY ==
[2024-05-26 09:34] VITALS: BP 148/91; PULSE 104; TEMP 36.4; O2SAT 93
[2024-05-26 10:30] LABS: Hemoglobin 10.2 g/dL (12.0-16.0); Mean Corpuscular HGB Conc 30.9 g/dL (29.9-35.2); Mean Corpuscular Hemoglobin 27.1 pg (26.7-34.0); Mean Corpuscular Volume 87.5 fL (81.0-99.0); Mean Platelet Volume 10.3 fL (9.5-13.5); Platelet Count 202 10^3/uL (150-450); Red Blood Count 3.77 10^6/uL (4.20-5.40); Red Cell Distribution Width 29.4 % (11.0-15.0)
[2024-05-26 10:46] LABS: Alanine Aminotransferase 171 U/L (14-59); Albumin Globulin Ratio 0.9; Albumin Level 2.1 g/dL (3.4-5.0); Alkaline Phosphatase 258 U/L (46-116); Anion Gap 12.4; Aspartate Amino Transferase 59 U/L (15-37); BUN Creatinine Ratio 30.4; Bilirubin Total 0.9 mg/dL (0.2-1.0); Calcium 6.5 mg/dL (8.5-10.1); Carbon Dioxide 23.2 mmol/L (21.0-32.0); Chloride 113 mmol/L (98-107); Estimated GFR (African America >60 (>=60); Estimated GFR (Non-African Ame >60 (>=60); Globulin 2.3 g/dL; Glucose 88 mg/dL (74-106); Sodium 146 mmol/L (136-145); Total Protein 4.4 g/dL (6.4-8.2)
[2024-05-26 13:53] LABS: Potassium 2.6 mmol/L (3.5-5.1); White Blood Count 41.7 10^3/uL (4.0-11.0)
[2024-05-26 13:54] LABS: Anisocytosis 1+; Band Neutrophils Absolute 4.2 10^3/uL (0.0-0.3); Eosinophils Absolute Manual 0.41 10^3/uL (0.00-0.70); Hypochromasia 1+; Lymphocytes Absolute Manual 2.08 10^3/uL (1.20-3.80); Metamyelocytes Absolute Manual 0.41; Microcytosis 1+; Monocytes Absolute Manual 4.58 10^3/uL (0.30-0.80); Myelocytes Absolute Manual 1.25; Nucleated Red Blood Cells 3; Polychromasia 1+; Segmented Neut Absolute Manual 28.77 10^3/uL (1.4-6.5)
[2024-06-02 09:59] LABS: Basophils Absolute Auto 0.1 10^3/uL (0.0-0.1); Basophils Percent Auto 0.6 % (0.2-2.0); Eosinophils Percent Auto 0.2 % (0.9-7.0); Hemoglobin 8.5 g/dL (12.0-16.0); Immature Granulocytes Abs Auto 0.19 10^3/uL (0.00-0.03); Immature Granulocytes Pct Auto 1.5 % (0.0-0.5); Lymphocytes Absolute Auto 1.7 10^3/uL (1.2-3.8); Lymphocytes Percent Auto 13.4 % (20.5-60.0); Mean Corpuscular HGB Conc 30.4 g/dL (29.9-35.2); Mean Corpuscular Hemoglobin 26.3 pg (26.7-34.0); Mean Corpuscular Volume 86.7 fL (81.0-99.0); Mean Platelet Volume 9.9 fL (9.5-13.5); Monocytes Absolute Auto 0.8 10^3/uL (0.3-0.8); Monocytes Percent Auto 6.2 % (1.7-12.0); Neutrophils Percent Auto 78.1 % (43.0-75.0); Platelet Count 407 10^3/uL (150-450); Red Blood Count 3.23 10^6/uL (4.20-5.40); White Blood Count 12.8 10^3/uL (4.0-11.0)
[2024-06-02 10:04] VITALS: BP 170/90; PULSE 110; TEMP 37.3; O2SAT 92
--- NOTE | 2024-06-02 10:08 | PC.NURSE ---
Lt upper arm picc dressing removed, site care performed under sterile technique, 4 cm external length, new stat lock and chg dressing applied caps changed, labs draw flushed with NS. tolerated well. released per wheelchair.
[2024-06-02 10:16] LABS: Alanine Aminotransferase 124 U/L (14-59); Albumin Globulin Ratio 0.5; Albumin Level 2.4 g/dL (3.4-5.0); Alkaline Phosphatase 303 U/L (46-116); Anion Gap 13.1; Aspartate Amino Transferase 57 U/L (15-37); BUN Creatinine Ratio 18.4; Bilirubin Total 0.8 mg/dL (0.2-1.0); Calcium 8.9 mg/dL (8.5-10.1); Carbon Dioxide 28.9 mmol/L (21.0-32.0); Chloride 102 mmol/L (98-107); Estimated GFR (African America >60 (>=60); Estimated GFR (Non-African Ame >60 (>=60); Globulin 4.9 g/dL; Glucose 121 mg/dL (74-106); Sodium 140 mmol/L (136-145); Total Protein 7.3 g/dL (6.4-8.2)
== END 2024-06-05 23:59 | disposition home or self-care (01) ==
LOC: INF 07:24
PROVIDERS: PCP Family Medicine
DX: C83.50 Lymphoblastic (diffuse) lymphoma, unspecified site (principal)
CPT/HCPCS: 36415; 36591; 36592; 80053; 85007; 85025; 85027; 99195

== ENCOUNTER 2024-06-15 07:04 | Outpatient (RCR) | payer OTHER, SELFPAY ==
[2024-06-09 10:18] VITALS: BP 135/82; PULSE 97; TEMP 36.8; O2SAT 94
--- NOTE | 2024-06-09 10:23 | PC.NURSE ---
0915 rt upper arm picc old dressing removed, site clear, site cleansed, new chg dressing and stat lock applied after cleansing site with chg swab and applying skin prep, tolerated well. both lines flushed and obtained blood return, caps and tubings changed, patient tolerated well. released per wheelchair with
[2024-06-15 10:53] VITALS: BP 146/88; PULSE 95; TEMP 36.6; O2SAT 97
--- NOTE | 2024-06-15 13:08 | PC.NURSE ---
1010 patient states unable to flush picc yesterday. unable to obtain blood return from either port of PICC.
--- NOTE | 2024-06-15 13:10 | PC.NURSE ---
1050 Connected stop cock to both ports. aspirated small amount of fluid, the instilled approx 1/2 cc of cath flow into both ports, ports clamped patient instructed on protocol.
== END 2024-07-05 23:59 | disposition home or self-care (01) ==
LOC: HEMC 07:04
PROVIDERS: PCP Family Medicine; Visit Provider Internal Medicine Hematology & Oncology
DX: C83.50 Lymphoblastic (diffuse) lymphoma, unspecified site (principal)
CPT/HCPCS: 36592; 36593; 80053; 85007; 85025; 85027; G0463; J2997

== ENCOUNTER 2024-06-30 07:33 | Outpatient (RCR) | payer OTHER, SELFPAY ==
[2024-06-09 13:34] LABS: Hematocrit 30.5 % (36.0-48.0); Hemoglobin 9.6 g/dL (12.0-16.0); Mean Corpuscular HGB Conc 31.5 g/dL (29.9-35.2); Mean Corpuscular Hemoglobin 26.7 pg (26.7-34.0); Mean Corpuscular Volume 84.7 fL (81.0-99.0); Mean Platelet Volume 10.2 fL (9.5-13.5); Platelet Count 396 10^3/uL (150-450); White Blood Count 6.6 10^3/uL (4.0-11.0)
[2024-06-09 13:44] LABS: Alanine Aminotransferase 190 U/L (14-59); Albumin Globulin Ratio 0.9; Albumin Level 3.1 g/dL (3.4-5.0); Alkaline Phosphatase 182 U/L (46-116); Anion Gap 14.6; Aspartate Amino Transferase 86 U/L (15-37); BUN Creatinine Ratio 52.5; Bilirubin Total 1.7 mg/dL (0.2-1.0); Calcium 9.3 mg/dL (8.5-10.1); Carbon Dioxide 30.1 mmol/L (21.0-32.0); Chloride 102 mmol/L (98-107); Estimated GFR (African America >60 (>=60); Estimated GFR (Non-African Ame >60 (>=60); Globulin 3.6 g/dL; Glucose 105 mg/dL (74-106); Potassium 3.7 mmol/L (3.5-5.1); Sodium 143 mmol/L (136-145); Total Protein 6.7 g/dL (6.4-8.2)
[2024-06-09 13:51] LABS: Band Neutrophils Absolute 0.1 10^3/uL (0.0-0.3); Eosinophils Absolute Manual 0.06 10^3/uL (0.00-0.70); Lymphocytes Absolute Manual 0.39 10^3/uL (1.20-3.80); Monocytes Absolute Manual 0.06 10^3/uL (0.30-0.80)
[2024-06-09 13:52] LABS: Anisocytosis 1+; Microcytosis 1+
--- NOTE | 2024-06-15 10:10 | PC.NURSE ---
1010 patient states unable to flush picc yesterday. unable to obtain blood return from either port of PICC.
[2024-06-15] MEDS: ALTEPLASE 2 MG, WATER FOR INJECTION,STERILE 2.2 ML IVP (10:50)
--- NOTE | 2024-06-15 10:50 | PC.NURSE ---
1050 Connected stop cock to both ports. aspirated small amount of fluid, the instilled approx 1/2 cc of cath flow into both ports, ports clamped patient instructed on alice
--- NOTE | 2024-06-15 12:00 | PC.NURSE ---
1110 attempted to aspirate blood from both ports without success. 1130 aspirated, able to draw blood from both ports, labs drawn, both ports flushed with normal saline. old dressing removed for picc rt upper arm, site clear. 4 cm of catheter on outside. site cleansed with chg followed by skin prep, new chg dressing applied as well as stat lock. extension sets applied to both ports.
[2024-06-15 12:31] LABS: Hemoglobin 8.9 g/dL (12.0-16.0); Mean Corpuscular HGB Conc 30.7 g/dL (29.9-35.2); Mean Corpuscular Hemoglobin 25.9 pg (26.7-34.0); Mean Corpuscular Volume 84.3 fL (81.0-99.0); Mean Platelet Volume 10.1 fL (9.5-13.5); Platelet Count 367 10^3/uL (150-450); Red Blood Count 3.44 10^6/uL (4.20-5.40); Red Cell Distribution Width 25.5 % (11.0-15.0); White Blood Count 2.6 10^3/uL (4.0-11.0)
[2024-06-15 12:44] LABS: Alanine Aminotransferase 174 U/L (14-59); Albumin Globulin Ratio 0.7; Albumin Level 2.7 g/dL (3.4-5.0); Alkaline Phosphatase 251 U/L (46-116); Anion Gap 7.9; Aspartate Amino Transferase 55 U/L (15-37); BUN Creatinine Ratio 33.3; Bilirubin Total 1.4 mg/dL (0.2-1.0); Calcium 8.5 mg/dL (8.5-10.1); Carbon Dioxide 32.6 mmol/L (21.0-32.0); Chloride 101 mmol/L (98-107); Estimated GFR (African America >60 (>=60); Estimated GFR (Non-African Ame >60 (>=60); Glucose 136 mg/dL (74-106); Potassium 3.5 mmol/L (3.5-5.1); Sodium 138 mmol/L (136-145); Total Protein 6.7 g/dL (6.4-8.2)
[2024-06-15 13:03] LABS: Anisocytosis 1+; Basophils Abs Manual 0.05 10^3/uL (0.00-0.10); Lymphocytes Absolute Manual 0.31 10^3/uL (1.20-3.80); Monocytes Absolute Manual 0.15 10^3/uL (0.30-0.80); Segmented Neut Absolute Manual 1.97 10^3/uL (1.4-6.5)
[2024-06-15 13:04] LABS: Ovalocytes 1+
--- NOTE | 2024-06-23 10:12 | PC.NURSE ---
0915: Pt. to [facility] via w/c accompanied by . Seated in recliner. Gro[place]ong PICC line in place to right upper arm and without s&s of infection. Both ports flush easily. Able to aspirate blood easily but slowly from red port. Labs obtained. Using sterile technique, dressing to PICC line changed. Pt. tolerated with minimal c/o. 0935: Pt. without c/o or needs. D/c'd via w/c to home with .
[2024-06-23 10:13] LABS: Basophils Percent Auto 0.5 % (0.2-2.0); Eosinophils Absolute Auto 0.1 10^3/uL (0.0-0.7); Eosinophils Percent Auto 1.7 % (0.9-7.0); Hematocrit 34.9 % (36.0-48.0); Hemoglobin 10.7 g/dL (12.0-16.0); Immature Granulocytes Abs Auto 0.03 10^3/uL (0.00-0.03); Immature Granulocytes Pct Auto 0.7 % (0.0-0.5); Lymphocytes Absolute Auto 0.9 10^3/uL (1.2-3.8); Lymphocytes Percent Auto 22.5 % (20.5-60.0); Mean Corpuscular HGB Conc 30.7 g/dL (29.9-35.2); Mean Corpuscular Hemoglobin 26.1 pg (26.7-34.0); Mean Corpuscular Volume 85.1 fL (81.0-99.0); Mean Platelet Volume 9.5 fL (9.5-13.5); Monocytes Absolute Auto 0.6 10^3/uL (0.3-0.8); Monocytes Percent Auto 13.5 % (1.7-12.0); Neutrophils Absolute Auto 2.5 10^3/uL (1.4-6.5); Neutrophils Percent Auto 61.1 % (43.0-75.0); Platelet Count 373 10^3/uL (150-450); White Blood Count 4.1 10^3/uL (4.0-11.0)
[2024-06-23 10:30] LABS: Alanine Aminotransferase 71 U/L (14-59); Albumin Globulin Ratio 0.7; Alkaline Phosphatase 275 U/L (46-116); Anion Gap 9.1; Aspartate Amino Transferase 33 U/L (15-37); Bilirubin Total 1.1 mg/dL (0.2-1.0); Calcium 9.1 mg/dL (8.5-10.1); Carbon Dioxide 30.8 mmol/L (21.0-32.0); Chloride 100 mmol/L (98-107); Estimated GFR (African America >60 (>=60); Estimated GFR (Non-African Ame >60 (>=60); Globulin 4.1 g/dL; Glucose 108 mg/dL (74-106); Potassium 3.9 mmol/L (3.5-5.1); Sodium 136 mmol/L (136-145); Total Protein 7.1 g/dL (6.4-8.2)
[2024-06-23 10:34] LABS: Red Cell Distribution Width 23.2 % (11.0-15.0)
[2024-06-30 09:45] LABS: Basophils Percent Auto 0.3 % (0.2-2.0); Eosinophils Percent Auto 0.3 % (0.9-7.0); Hematocrit 35.7 % (36.0-48.0); Hemoglobin 10.9 g/dL (12.0-16.0); Immature Granulocytes Abs Auto 0.02 10^3/uL (0.00-0.03); Immature Granulocytes Pct Auto 0.3 % (0.0-0.5); Lymphocytes Absolute Auto 0.6 10^3/uL (1.2-3.8); Lymphocytes Percent Auto 8.6 % (20.5-60.0); Mean Corpuscular HGB Conc 30.5 g/dL (29.9-35.2); Mean Corpuscular Hemoglobin 25.1 pg (26.7-34.0); Mean Corpuscular Volume 82.3 fL (81.0-99.0); Mean Platelet Volume 9.9 fL (9.5-13.5); Monocytes Absolute Auto 0.2 10^3/uL (0.3-0.8); Monocytes Percent Auto 2.8 % (1.7-12.0); Neutrophils Absolute Auto 5.9 10^3/uL (1.4-6.5); Neutrophils Percent Auto 87.7 % (43.0-75.0); Platelet Count 383 10^3/uL (150-450); Red Blood Count 4.34 10^6/uL (4.20-5.40); Red Cell Distribution Width 20.7 % (11.0-15.0); White Blood Count 6.7 10^3/uL (4.0-11.0)
--- NOTE | 2024-06-30 09:50 | PC.NURSE ---
rt upper arm picc dual lumen intact old dressing removed, site cleansed with CHG prep, skin prep applied surrounding site, new stat lock applied, followed by chg tegaderm. 4 cm external catheter noted. Labs drawn, all extaension sets and caps changed. patient tolerated well.
[2024-06-30 09:52] VITALS: BP 154/98; PULSE 94; TEMP 36.5; O2SAT 95
[2024-06-30 09:53] LABS: Alanine Aminotransferase 149 U/L (14-59); Albumin Level 3.4 g/dL (3.4-5.0); Alkaline Phosphatase 140 U/L (46-116); Anion Gap 7.8; Aspartate Amino Transferase 63 U/L (15-37); BUN Creatinine Ratio 46.8; Bilirubin Total 1.2 mg/dL (0.2-1.0); Calcium 9.2 mg/dL (8.5-10.1); Carbon Dioxide 32.5 mmol/L (21.0-32.0); Chloride 104 mmol/L (98-107); Estimated GFR (African America >60 (>=60); Estimated GFR (Non-African Ame >60 (>=60); Globulin 3.4 g/dL; Glucose 96 mg/dL (74-106); Potassium 3.3 mmol/L (3.5-5.1); Sodium 141 mmol/L (136-145); Total Protein 6.8 g/dL (6.4-8.2)
== END 2024-06-30 23:59 | disposition home or self-care (01) ==
LOC: LAB 07:33
PROVIDERS: PCP Family Medicine
DX: C83.50 Lymphoblastic (diffuse) lymphoma, unspecified site (principal)
CPT/HCPCS: 36592; 36593; 80053; 85007; 85025; 85027; G0463; J2997

== ENCOUNTER 2024-08-04 07:34 | Outpatient (RCR) | payer OTHER, SELFPAY ==
[2024-07-08 09:03] VITALS: BP 156/89; PULSE 110; TEMP 36.6; O2SAT 95
--- NOTE | 2024-07-08 09:44 | PC.NURSE ---
0903: Pt to [facility] amb. via w/c accompanied by . PICC line intact to right upper arm and without s&s of infection or infiltration. Able to flush both ports easily and able to aspirate blood easily for ordered blood draw. Using sterile technique, dressing to PICC line changed. New J-loops applied to each port and chg caps applied. Pt. tolerated without c/o. 0930: Pt. d/c'd via w/c to home with .
[2024-07-08 09:51] LABS: Hematocrit 30.3 % (36.0-48.0); Hemoglobin 9.4 g/dL (12.0-16.0); Mean Corpuscular Hemoglobin 25.4 pg (26.7-34.0); Mean Corpuscular Volume 81.9 fL (81.0-99.0); Mean Platelet Volume 10.8 fL (9.5-13.5); Platelet Count 310 10^3/uL (150-450); Red Cell Distribution Width 20.1 % (11.0-15.0); White Blood Count 3.2 10^3/uL (4.0-11.0)
[2024-07-08 10:13] LABS: Alanine Aminotransferase 108 U/L (14-59); Albumin Globulin Ratio 0.5; Albumin Level 2.4 g/dL (3.4-5.0); Alkaline Phosphatase 260 U/L (46-116); Anion Gap 10.8; Aspartate Amino Transferase 47 U/L (15-37); BUN Creatinine Ratio 23.2; Bilirubin Total 1.1 mg/dL (0.2-1.0); Calcium 9.1 mg/dL (8.5-10.1); Carbon Dioxide 28.9 mmol/L (21.0-32.0); Chloride 98 mmol/L (98-107); Estimated GFR (African America >60 (>=60 mL/min/1.73m^2); Estimated GFR (Non-African Ame >60 (>=60 mL/min/1.73m^2); Globulin 4.4 g/dL; Glucose 121 mg/dL (74-106); Potassium 3.7 mmol/L (3.5-5.1); Sodium 134 mmol/L (136-145); Total Protein 6.8 g/dL (6.4-8.2)
[2024-07-08 10:49] LABS: Band Neutrophils Absolute 0.1 10^3/uL (0.0-0.3); Eosinophils Absolute Manual 0.03 10^3/uL (0.00-0.70); Lymphocytes Absolute Manual 0.32 10^3/uL (1.20-3.80); Monocytes Absolute Manual 0.38 10^3/uL (0.30-0.80); Segmented Neut Absolute Manual 2.33 10^3/uL (1.4-6.5)
[2024-07-15 13:10] VITALS: BP 132/76; PULSE 76; TEMP 36.3; O2SAT 94
[2024-07-15 13:33] LABS: Basophils Percent Auto 0.3 % (0.2-2.0); Eosinophils Absolute Auto 0.1 10^3/uL (0.0-0.7); Eosinophils Percent Auto 1.1 % (0.9-7.0); Hematocrit 36.7 % (36.0-48.0); Hemoglobin 10.8 g/dL (12.0-16.0); Immature Granulocytes Abs Auto 0.11 10^3/uL (0.00-0.03); Immature Granulocytes Pct Auto 1.5 % (0.0-0.5); Lymphocytes Absolute Auto 0.9 10^3/uL (1.2-3.8); Lymphocytes Percent Auto 12.2 % (20.5-60.0); Mean Corpuscular HGB Conc 29.4 g/dL (29.9-35.2); Mean Corpuscular Hemoglobin 24.5 pg (26.7-34.0); Mean Corpuscular Volume 83.4 fL (81.0-99.0); Mean Platelet Volume 9.4 fL (9.5-13.5); Monocytes Absolute Auto 0.5 10^3/uL (0.3-0.8); Monocytes Percent Auto 6.4 % (1.7-12.0); Neutrophils Absolute Auto 5.8 10^3/uL (1.4-6.5); Neutrophils Percent Auto 78.5 % (43.0-75.0); Platelet Count 514 10^3/uL (150-450); Red Cell Distribution Width 20.6 % (11.0-15.0); White Blood Count 7.4 10^3/uL (4.0-11.0)
[2024-07-15 13:48] LABS: Alanine Aminotransferase 78 U/L (14-59); Albumin Globulin Ratio 0.7; Albumin Level 2.9 g/dL (3.4-5.0); Alkaline Phosphatase 335 U/L (46-116); Anion Gap 13.4; Aspartate Amino Transferase 37 U/L (15-37); BUN Creatinine Ratio 30.9; Bilirubin Total 0.6 mg/dL (0.2-1.0); Calcium 9.3 mg/dL (8.5-10.1); Carbon Dioxide 27.4 mmol/L (21.0-32.0); Chloride 103 mmol/L (98-107); Estimated GFR (African America >60 (>=60 mL/min/1.73m^2); Estimated GFR (Non-African Ame >60 (>=60 mL/min/1.73m^2); Globulin 4.2 g/dL; Glucose 105 mg/dL (74-106); Potassium 3.8 mmol/L (3.5-5.1); Sodium 140 mmol/L (136-145); Total Protein 7.1 g/dL (6.4-8.2)
--- NOTE | 2024-07-15 14:02 | PC.NURSE ---
1310: Pt. to [facility] for MD visit and blood draw accompanied by . VSS. Pt. with existing PICC line in place to right upper arm. Both lumens flush easily. Able to aspirate blood for blood draw. Dressing to PICC line changed, new J-loops and caps applied. Pt. tolerates without c/o. 1325: Pt. to exam room for appt. with Dr. Erickson.
[2024-07-21 09:21] LABS: Hematocrit 36.1 % (36.0-48.0); Hemoglobin 11.1 g/dL (12.0-16.0); Mean Corpuscular HGB Conc 30.7 g/dL (29.9-35.2); Mean Corpuscular Hemoglobin 24.8 pg (26.7-34.0); Mean Corpuscular Volume 80.6 fL (81.0-99.0); Mean Platelet Volume 9.6 fL (9.5-13.5); Platelet Count 421 10^3/uL (150-450); Red Blood Count 4.48 10^6/uL (4.20-5.40); Red Cell Distribution Width 18.6 % (11.0-15.0); White Blood Count 7.2 10^3/uL (4.0-11.0)
[2024-07-21 09:37] LABS: Alanine Aminotransferase 198 U/L (14-59); Albumin Globulin Ratio 0.9; Alkaline Phosphatase 158 U/L (46-116); Anion Gap 11.8; Aspartate Amino Transferase 74 U/L (15-37); Bilirubin Total 1.1 mg/dL (0.2-1.0); Carbon Dioxide 30.6 mmol/L (21.0-32.0); Chloride 103 mmol/L (98-107); Estimated GFR (African America >60 (>=60 mL/min/1.73m^2); Estimated GFR (Non-African Ame >60 (>=60 mL/min/1.73m^2); Globulin 3.5 g/dL; Glucose 116 mg/dL (74-106); Potassium 3.4 mmol/L (3.5-5.1); Sodium 142 mmol/L (136-145); Total Protein 6.5 g/dL (6.4-8.2)
[2024-07-21 09:49] LABS: Lymphocytes Absolute Manual 0.64 10^3/uL (1.20-3.80); Segmented Neut Absolute Manual 6.55 10^3/uL (1.4-6.5)
[2024-07-21 09:50] LABS: Anisocytosis 1+
[2024-07-21 11:18] VITALS: BP 120/76; PULSE 81; TEMP 36.4; O2SAT 96
--- NOTE | 2024-07-21 11:20 | PC.NURSE ---
0910 Arrival per w/c with , PICC intact rt upper arm, flushes well, excellent blood return, labs drawn and sent to lab. old dressiing removed, site clear 4 cm of external catheter noted. cleansed with chg sponge, skin prep applied, new stat lock applied followed by chg dressing, tolerated well 0940 released per wheel chair.
[2024-07-28 09:05] VITALS: BP 142/84; PULSE 114; TEMP 37.2; O2SAT 96
--- NOTE | 2024-07-28 09:25 | PC.NURSE ---
left upper arm picc dressing stat lock changed, 4 cm external catheter. Labs drawn sent to lab
[2024-07-28 09:44] LABS: Hemoglobin 10.5 g/dL (12.0-16.0); Mean Corpuscular Hemoglobin 24.8 pg (26.7-34.0); Mean Corpuscular Volume 82.7 fL (81.0-99.0); Mean Platelet Volume 10.4 fL (9.5-13.5); Platelet Count 220 10^3/uL (150-450); Red Blood Count 4.23 10^6/uL (4.20-5.40); Red Cell Distribution Width 19.6 % (11.0-15.0); White Blood Count 4.2 10^3/uL (4.0-11.0)
[2024-07-28 09:59] LABS: Alanine Aminotransferase 110 U/L (14-59); Albumin Globulin Ratio 0.8; Albumin Level 2.9 g/dL (3.4-5.0); Alkaline Phosphatase 252 U/L (46-116); Anion Gap 12.9; Aspartate Amino Transferase 39 U/L (15-37); BUN Creatinine Ratio 20.8; Bilirubin Total 1.6 mg/dL (0.2-1.0); Calcium 8.9 mg/dL (8.5-10.1); Carbon Dioxide 26.8 mmol/L (21.0-32.0); Chloride 105 mmol/L (98-107); Estimated GFR (African America >60 (>=60 mL/min/1.73m^2); Estimated GFR (Non-African Ame >60 (>=60 mL/min/1.73m^2); Globulin 3.7 g/dL; Glucose 129 mg/dL (74-106); Potassium 3.7 mmol/L (3.5-5.1); Sodium 141 mmol/L (136-145); Total Protein 6.6 g/dL (6.4-8.2)
[2024-07-28 10:13] LABS: Eosinophils Absolute Manual 0.04 10^3/uL (0.00-0.70); Lymphocytes Absolute Manual 0.42 10^3/uL (1.20-3.80); Monocytes Absolute Manual 0.29 10^3/uL (0.30-0.80); Segmented Neut Absolute Manual 3.44 10^3/uL (1.4-6.5)
[2024-07-28 10:14] LABS: Anisocytosis 2+
[2024-08-04 09:31] VITALS: BP 130/77; PULSE 96; TEMP 36.4; O2SAT 98
--- NOTE | 2024-08-04 09:41 | PC.NURSE ---
Right upper arm PICC line intact, flushes easily. Blood drawn. Drsg changed. 4cm of external catheter showing.
[2024-08-04 09:59] LABS: Basophils Percent Auto 0.3 % (0.2-2.0); Eosinophils Absolute Auto 0.1 10^3/uL (0.0-0.7); Eosinophils Percent Auto 3.3 % (0.9-7.0); Hemoglobin 10.8 g/dL (12.0-16.0); Immature Granulocytes Abs Auto 0.02 10^3/uL (0.00-0.03); Immature Granulocytes Pct Auto 0.7 % (0.0-0.5); Lymphocytes Absolute Auto 0.5 10^3/uL (1.2-3.8); Lymphocytes Percent Auto 16.7 % (20.5-60.0); Mean Corpuscular Hemoglobin 24.6 pg (26.7-34.0); Mean Platelet Volume 10.8 fL (9.5-13.5); Monocytes Absolute Auto 0.4 10^3/uL (0.3-0.8); Monocytes Percent Auto 12.3 % (1.7-12.0); Neutrophils Percent Auto 66.7 % (43.0-75.0); Platelet Count 313 10^3/uL (150-450); Red Blood Count 4.39 10^6/uL (4.20-5.40); Red Cell Distribution Width 18.4 % (11.0-15.0)
[2024-08-04 10:15] LABS: Alanine Aminotransferase 75 U/L (14-59); Albumin Globulin Ratio 0.8; Alkaline Phosphatase 257 U/L (46-116); Anion Gap 12.6; Aspartate Amino Transferase 45 U/L (15-37); BUN Creatinine Ratio 26.2; Bilirubin Total 0.8 mg/dL (0.2-1.0); Calcium 8.9 mg/dL (8.5-10.1); Carbon Dioxide 31.2 mmol/L (21.0-32.0); Chloride 105 mmol/L (98-107); Estimated GFR (African America >60 (>=60 mL/min/1.73m^2); Estimated GFR (Non-African Ame >60 (>=60 mL/min/1.73m^2); Globulin 3.7 g/dL; Glucose 102 mg/dL (74-106); Potassium 3.8 mmol/L (3.5-5.1); Sodium 145 mmol/L (136-145); Total Protein 6.7 g/dL (6.4-8.2)
== END 2024-08-05 23:59 | disposition home or self-care (01) ==
LOC: INF 07:34
PROVIDERS: Internal Medicine Hematology & Oncology; PCP Family Medicine
DX: C83.50 Lymphoblastic (diffuse) lymphoma, unspecified site (principal)
CPT/HCPCS: 36415; 36591; 36592; 80053; 85007; 85025; 85027; G0463

== ENCOUNTER 2024-08-24 09:06 | Outpatient (RCR) | payer OTHER, SELFPAY | END 2024-09-01 12:57 | disposition home or self-care (01) | LOC: HEMC 09:06 | PROVIDERS: PCP Family Medicine; Visit Provider Internal Medicine Hematology & Oncology | DX: C91.00 Acute lymphoblastic leukemia not having achieved remission (principal); Z90.710 Acquired absence of both cervix and uterus; I82.B11 Acute embolism and thrombosis of right subclavian vein; D50.9 Iron deficiency anemia, unspecified; K90.9 Intestinal malabsorption, unspecified; C38.1 Malignant neoplasm of anterior mediastinum | CPT/HCPCS: 80053; 85025; G0463 ==

== ENCOUNTER 2024-09-01 07:36 | Outpatient (RCR) | payer OTHER, SELFPAY ==
[2024-08-11 09:23] LABS: Basophils Percent Auto 0.2 % (0.2-2.0); Eosinophils Percent Auto 0.3 % (0.9-7.0); Hematocrit 37.3 % (36.0-48.0); Hemoglobin 11.6 g/dL (12.0-16.0); Immature Granulocytes Abs Auto 0.01 10^3/uL (0.00-0.03); Immature Granulocytes Pct Auto 0.2 % (0.0-0.5); Lymphocytes Absolute Auto 0.5 10^3/uL (1.2-3.8); Lymphocytes Percent Auto 7.7 % (20.5-60.0); Mean Corpuscular HGB Conc 31.1 g/dL (29.9-35.2); Mean Corpuscular Hemoglobin 25.1 pg (26.7-34.0); Mean Corpuscular Volume 80.7 fL (81.0-99.0); Mean Platelet Volume 10.4 fL (9.5-13.5); Monocytes Absolute Auto 0.2 10^3/uL (0.3-0.8); Monocytes Percent Auto 2.8 % (1.7-12.0); Neutrophils Absolute Auto 5.3 10^3/uL (1.4-6.5); Neutrophils Percent Auto 88.8 % (43.0-75.0); Platelet Count 291 10^3/uL (150-450); Red Blood Count 4.62 10^6/uL (4.20-5.40); Red Cell Distribution Width 17.7 % (11.0-15.0)
[2024-08-11 09:37] LABS: Alanine Aminotransferase 128 U/L (14-59); Albumin Level 3.4 g/dL (3.4-5.0); Alkaline Phosphatase 140 U/L (46-116); Anion Gap 13.5; Aspartate Amino Transferase 77 U/L (15-37); BUN Creatinine Ratio 41.1; Bilirubin Total 1.2 mg/dL (0.2-1.0); Calcium 8.6 mg/dL (8.5-10.1); Carbon Dioxide 29.6 mmol/L (21.0-32.0); Chloride 106 mmol/L (98-107); Estimated GFR (African America >60 (>=60 mL/min/1.73m^2); Estimated GFR (Non-African Ame >60 (>=60 mL/min/1.73m^2); Globulin 3.3 g/dL; Glucose 95 mg/dL (74-106); Potassium 3.1 mmol/L (3.5-5.1); Sodium 146 mmol/L (136-145); Total Protein 6.7 g/dL (6.4-8.2)
[2024-08-11 10:31] VITALS: BP 136/93; PULSE 105; TEMP 36.5; O2SAT 95
--- NOTE | 2024-08-11 10:34 | PC.NURSE ---
labs drawn during picc dressing change
[2024-08-18 09:56] LABS: Hemoglobin 11.1 g/dL (12.0-16.0); Mean Corpuscular HGB Conc 30.8 g/dL (29.9-35.2); Mean Corpuscular Hemoglobin 25.1 pg (26.7-34.0); Mean Corpuscular Volume 81.3 fL (81.0-99.0); Platelet Count 252 10^3/uL (150-450); Red Blood Count 4.43 10^6/uL (4.20-5.40); Red Cell Distribution Width 18.3 % (11.0-15.0); White Blood Count 3.7 10^3/uL (4.0-11.0)
[2024-08-18 10:15] LABS: Lymphocytes Absolute Manual 0.44 10^3/uL (1.20-3.80); Monocytes Absolute Manual 0.37 10^3/uL (0.30-0.80); Segmented Neut Absolute Manual 2.84 10^3/uL (1.4-6.5)
[2024-08-18 10:16] LABS: Alanine Aminotransferase 119 U/L (14-59); Albumin Globulin Ratio 0.9; Albumin Level 3.2 g/dL (3.4-5.0); Alkaline Phosphatase 276 U/L (46-116); Anion Gap 16.1; Anisocytosis 1+; Aspartate Amino Transferase 45 U/L (15-37); Bilirubin Total 1.1 mg/dL (0.2-1.0); Carbon Dioxide 27.8 mmol/L (21.0-32.0); Chloride 107 mmol/L (98-107); Estimated GFR (African America >60 (>=60 mL/min/1.73m^2); Estimated GFR (Non-African Ame >60 (>=60 mL/min/1.73m^2); Globulin 3.7 g/dL; Glucose 124 mg/dL (74-106); Ovalocytes 1+; Potassium 3.9 mmol/L (3.5-5.1); Sodium 147 mmol/L (136-145); Total Protein 6.9 g/dL (6.4-8.2)
[2024-08-18 10:40] VITALS: BP 143/96; PULSE 118; TEMP 36.7; O2SAT 97
--- NOTE | 2024-08-18 10:41 | PC.NURSE ---
0900 Arrival per wheelchair. alert oriented. PICC intact rt upper arm, excellent blood return both ports, labs drawn. dressing removed as well as stat lock, site cleansed under sterile technique with CHG sponge, 4 cm external catheter length noted. insertion site without reddness or drainage. skin prep applied, new CHG biocclusive dressing and stat lock applied. new extension sets as well as CHG caps. tolerated well, released per wheelchair at 0925
[2024-08-24 10:16] LABS: Basophils Percent Auto 0.6 % (0.2-2.0); Eosinophils Absolute Auto 0.1 10^3/uL (0.0-0.7); Eosinophils Percent Auto 2.2 % (0.9-7.0); Hematocrit 40.2 % (36.0-48.0); Hemoglobin 12.1 g/dL (12.0-16.0); Immature Granulocytes Abs Auto 0.03 10^3/uL (0.00-0.03); Immature Granulocytes Pct Auto 0.9 % (0.0-0.5); Lymphocytes Absolute Auto 0.6 10^3/uL (1.2-3.8); Lymphocytes Percent Auto 20.1 % (20.5-60.0); Mean Corpuscular HGB Conc 30.1 g/dL (29.9-35.2); Mean Corpuscular Hemoglobin 24.1 pg (26.7-34.0); Mean Corpuscular Volume 79.9 fL (81.0-99.0); Mean Platelet Volume 10.8 fL (9.5-13.5); Monocytes Absolute Auto 0.5 10^3/uL (0.3-0.8); Monocytes Percent Auto 16.9 % (1.7-12.0); Neutrophils Absolute Auto 1.9 10^3/uL (1.4-6.5); Neutrophils Percent Auto 59.3 % (43.0-75.0); Platelet Count 423 10^3/uL (150-450); Red Blood Count 5.03 10^6/uL (4.20-5.40); Red Cell Distribution Width 17.7 % (11.0-15.0); White Blood Count 3.2 10^3/uL (4.0-11.0)
[2024-08-24 10:25] LABS: Alanine Aminotransferase 75 U/L (14-59); Albumin Globulin Ratio 0.8; Albumin Level 3.4 g/dL (3.4-5.0); Alkaline Phosphatase 292 U/L (46-116); Aspartate Amino Transferase 41 U/L (15-37); BUN Creatinine Ratio 28.8; Bilirubin Total 0.6 mg/dL (0.2-1.0); Calcium 9.8 mg/dL (8.5-10.1); Carbon Dioxide 29.1 mmol/L (21.0-32.0); Chloride 106 mmol/L (98-107); Estimated GFR (African America >60 (>=60 mL/min/1.73m^2); Estimated GFR (Non-African Ame >60 (>=60 mL/min/1.73m^2); Globulin 4.1 g/dL; Glucose 104 mg/dL (74-106); Potassium 4.1 mmol/L (3.5-5.1); Sodium 144 mmol/L (136-145); Total Protein 7.5 g/dL (6.4-8.2)
[2024-09-01 10:03] LABS: Basophils Percent Auto 0.1 % (0.2-2.0); Eosinophils Percent Auto 0.1 % (0.9-7.0); Hematocrit 34.3 % (36.0-48.0); Hemoglobin 10.5 g/dL (12.0-16.0); Immature Granulocytes Abs Auto 0.03 10^3/uL (0.00-0.03); Immature Granulocytes Pct Auto 0.3 % (0.0-0.5); Lymphocytes Absolute Auto 0.6 10^3/uL (1.2-3.8); Lymphocytes Percent Auto 6.5 % (20.5-60.0); Mean Corpuscular HGB Conc 30.6 g/dL (29.9-35.2); Mean Corpuscular Hemoglobin 24.1 pg (26.7-34.0); Mean Corpuscular Volume 78.7 fL (81.0-99.0); Mean Platelet Volume 11.1 fL (9.5-13.5); Monocytes Absolute Auto 0.8 10^3/uL (0.3-0.8); Monocytes Percent Auto 8.1 % (1.7-12.0); Neutrophils Absolute Auto 7.9 10^3/uL (1.4-6.5); Neutrophils Percent Auto 84.9 % (43.0-75.0); Platelet Count 322 10^3/uL (150-450); Red Blood Count 4.36 10^6/uL (4.20-5.40); Red Cell Distribution Width 17.4 % (11.0-15.0); White Blood Count 9.3 10^3/uL (4.0-11.0)
[2024-09-01 10:05] LABS: Alanine Aminotransferase 57 U/L (14-59); Albumin Globulin Ratio 0.6; Albumin Level 2.8 g/dL (3.4-5.0); Alkaline Phosphatase 262 U/L (46-116); Anion Gap 13.2; Aspartate Amino Transferase 33 U/L (15-37); BUN Creatinine Ratio 20.3; Bilirubin Total 0.7 mg/dL (0.2-1.0); Calcium 9.5 mg/dL (8.5-10.1); Chloride 104 mmol/L (98-107); Estimated GFR (African America >60 (>=60 mL/min/1.73m^2); Estimated GFR (Non-African Ame >60 (>=60 mL/min/1.73m^2); Globulin 4.6 g/dL; Glucose 119 mg/dL (74-106); Potassium 4.2 mmol/L (3.5-5.1); Sodium 141 mmol/L (136-145); Total Protein 7.4 g/dL (6.4-8.2)
== END 2024-09-01 12:57 | disposition home or self-care (01) ==
LOC: INF 07:36
PROVIDERS: Internal Medicine Hematology & Oncology; PCP Family Medicine
DX: C83.50 Lymphoblastic (diffuse) lymphoma, unspecified site (principal); C91.00 Acute lymphoblastic leukemia not having achieved remission; Z90.710 Acquired absence of both cervix and uterus; I82.B11 Acute embolism and thrombosis of right subclavian vein; D50.9 Iron deficiency anemia, unspecified; C38.1 Malignant neoplasm of anterior mediastinum
CPT/HCPCS: 36415; 36591; 36592; 80053; 85007; 85025; 85027; G0463

== ENCOUNTER 2024-09-22 08:01 | Outpatient (RCR) | payer OTHER, SELFPAY ==
[2024-09-15 09:55] LABS: Hematocrit 34.1 % (36.0-48.0); Hemoglobin 10.3 g/dL (12.0-16.0); Mean Corpuscular HGB Conc 30.2 g/dL (29.9-35.2); Mean Corpuscular Hemoglobin 23.6 pg (26.7-34.0); Platelet Count 444 10^3/uL (150-450); Red Blood Count 4.37 10^6/uL (4.20-5.40); Red Cell Distribution Width 17.7 % (11.0-15.0); White Blood Count 5.1 10^3/uL (4.0-11.0)
[2024-09-15 10:14] LABS: Basophils Abs Manual 0.05 10^3/uL (0.00-0.10); Eosinophils Absolute Manual 0.15 10^3/uL (0.00-0.70); Lymphocytes Absolute Manual 0.66 10^3/uL (1.20-3.80); Metamyelocytes Absolute Manual 0.05; Monocytes Absolute Manual 0.51 10^3/uL (0.30-0.80); Nucleated Red Blood Cells 2; Segmented Neut Absolute Manual 3.67 10^3/uL (1.4-6.5)
[2024-09-15 10:15] LABS: Anisocytosis 2+; Polychromasia 1+
[2024-09-15 10:17] LABS: Alanine Aminotransferase 53 U/L (14-59); Albumin Globulin Ratio 0.7; Albumin Level 2.8 g/dL (3.4-5.0); Alkaline Phosphatase 195 U/L (46-116); Anion Gap 12.5; Aspartate Amino Transferase 34 U/L (15-37); BUN Creatinine Ratio 26.2; Bilirubin Total 0.7 mg/dL (0.2-1.0); Calcium 9.2 mg/dL (8.5-10.1); Carbon Dioxide 31.7 mmol/L (21.0-32.0); Chloride 106 mmol/L (98-107); Estimated GFR (African America >60 (>=60 mL/min/1.73m^2); Estimated GFR (Non-African Ame >60 (>=60 mL/min/1.73m^2); Globulin 4.3 g/dL; Glucose 105 mg/dL (74-106); Potassium 4.2 mmol/L (3.5-5.1); Sodium 146 mmol/L (136-145); Total Protein 7.1 g/dL (6.4-8.2)
[2024-09-22 09:22] LABS: Hemoglobin 9.9 g/dL (12.0-16.0); Mean Corpuscular Hemoglobin 23.2 pg (26.7-34.0); Mean Corpuscular Volume 77.3 fL (81.0-99.0); Mean Platelet Volume 9.9 fL (9.5-13.5); Platelet Count 334 10^3/uL (150-450); Red Blood Count 4.27 10^6/uL (4.20-5.40); Red Cell Distribution Width 18.2 % (11.0-15.0); White Blood Count 6.2 10^3/uL (4.0-11.0)
[2024-09-22 09:31] VITALS: BP 121/75; PULSE 85; TEMP 36.3; O2SAT 96
--- NOTE | 2024-09-22 09:32 | PC.NURSE ---
0920 dual lumen groshong picc intact rt upper arm, labs drawn and sent to lab, excellent blood return noted. dressing changed using sterile technique, 4 cm of catheter exposed. site clear, surrounding skin intact. skin prep applied. new stat lock and chg dressing applied,extension set and chg tegaderm applied. tolerated well. Released per wheelchair
[2024-09-22 09:34] LABS: Alanine Aminotransferase 41 U/L (14-59); Albumin Globulin Ratio 0.7; Albumin Level 2.7 g/dL (3.4-5.0); Alkaline Phosphatase 127 U/L (46-116); Anion Gap 8.7; Aspartate Amino Transferase 25 U/L (15-37); BUN Creatinine Ratio 25.8; Bilirubin Total 0.9 mg/dL (0.2-1.0); Calcium 8.9 mg/dL (8.5-10.1); Carbon Dioxide 33.2 mmol/L (21.0-32.0); Chloride 103 mmol/L (98-107); Estimated GFR (African America >60 (>=60 mL/min/1.73m^2); Estimated GFR (Non-African Ame >60 (>=60 mL/min/1.73m^2); Globulin 3.7 g/dL; Glucose 94 mg/dL (74-106); Potassium 3.9 mmol/L (3.5-5.1); Sodium 141 mmol/L (136-145); Total Protein 6.4 g/dL (6.4-8.2)
[2024-09-22 10:00] LABS: Band Neutrophils Absolute 0.1 10^3/uL (0.0-0.3); Eosinophils Absolute Manual 0.06 10^3/uL (0.00-0.70); Lymphocytes Absolute Manual 0.74 10^3/uL (1.20-3.80); Monocytes Absolute Manual 0.37 10^3/uL (0.30-0.80); Segmented Neut Absolute Manual 4.96 10^3/uL (1.4-6.5)
== END 2024-10-05 23:59 | disposition home or self-care (01) ==
LOC: INF 08:01
PROVIDERS: PCP Family Medicine
DX: C83.50 Lymphoblastic (diffuse) lymphoma, unspecified site (principal)
CPT/HCPCS: 36592; 80053; 85007; 85027

== ENCOUNTER 2024-09-23 14:09 | Emergency (ER) | payer OTHER, SELFPAY ==
[2024-09-23] VITALS (37 sets, daily range): BP systolic 113–164; BP diastolic 73–87; PULSE 80–112; TEMP 36.9; O2SAT 88–99; BMI 32.3
--- NOTE | 2024-09-23 14:22 | ECG_ITS ---
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 8102 Low QRS voltage in chest leads 9150 abnormal ECG Electronically Signed On 09-23-2024 19:46:59 EST by CHANCE MATTSON
--- NOTE | 2024-09-23 14:22 | CT_ITS ---
The [address] [address] Patient Name: SONYA MEYER MRN: [facility]:[id number] date: 1985 Sex: F Assigned Patient Location: ER Current Patient Location: ER Accession/Order Number: [id number] Exam Date: 09/23/2024 15:50 Report Date: 09/23/2024 16:21 At the request of: VINITA KAY Procedure: CT head/brain wo con EXAM: CT head/brain wo con HISTORY: Headache COMPARISON: 08/21/2016 TECHNIQUE: CT of the head without intravenous contrast. Dose reduction techniques were achieved by using automated exposure control and/or adjustment of mA and/or kV according to patient size and/or use of iterative reconstruction technique. FINDINGS: The brain parenchyma density is unremarkable. There is no acute intracranial hemorrhage, extra axial fluid collection, midline shift, or mass effect. There is no evidence to suggest acute infarction. The ventricles, sulci, and cisterns are normal in size and configuration, without evidence of hydrocephalus or herniation. The partially visualized paranasal sinuses and mastoid air cells are well pneumatized and clear. There are no suspicious osseous lytic or sclerotic lesions. There are no acute fractures. The extracranial soft tissues are unremarkable. CT/CT head/brain wo con IMPRESSION: No acute intracranial process. Electronically authenticated by: MIRI CASTELLANOS Date: 09/23/2024 16:21
--- NOTE | 2024-09-23 14:26 | CT_ITS ---
[address] [address] Patient Name: SONYA MEYER MRN: [id number] date: 1985 Sex: F Assigned Patient Location: ER Current Patient Location: Accession/Order Number: [id number] Exam Date: 09/23/2024 16:15 Report Date: 09/23/2024 17:10 At the request of: VINITA KAY Procedure: CT angio chest EXAM: CT angio chest HISTORY: hx cancer, shortness of breath, known DVT in neck COMPARISON: 04/04/2024 TECHNIQUE: CT chest with intravenous contrast was performed with timing for the evaluation for pulmonary arteries. Multiplanar reformats were performed. MIP (maximum intensity projection) images or 3D post processing was performed. Dose reduction techniques were achieved by using automated exposure control and/or adjustment of mA and/or kV according to patient size and/or use of iterative reconstruction technique. FINDINGS: Lungs: No pneumothorax. Small right and trace left pleural effusion. There is right perihilar middle and lower lobes linear atelectasis. No suspicious pulmonary nodule. Airways: Normal. Mediastinum: Interval increase in size of soft tissue density and conglomerated necrotic lymph nodes in the anterior mediastinum with invasion of the left brachiocephalic vein and left internal jugular vein with a mass effect on the superior vena cava as well as bilateral, right greater than left pulmonary veins and invasion of the right atrium and ventricle at the atrioventricular junction. The mass measures 9.5 x 16.3 cm (previously was 5.4 x 12.4 cm). Aorta: No aneurysm. Cardiac: Normal size. Small to moderate pericardial effusion. Pulmonary vasculature: Diagnostic opacification of pulmonary arteries without evidence of pulmonary embolus. Normal morphology. Bones: No acute bony abnormality. Axilla: No adenopathy. Thyroid gland: No abnormality demonstrated on provided imaging. Soft tissues: Unremarkable. Upper abdomen: Unremarkable. Additional findings: None. CT/CT angio chest IMPRESSION: No evidence of pulmonary embolus. Small right and trace left pleural effusion and right perihilar middle and lower lobes linear atelectasis. No suspicious pulmonary nodule. Small to moderate pericardial effusion. Interval increase in size of soft tissue density and conglomerated necrotic lymph nodes in the anterior mediastinum, measuring 9.5 x 16.3 cm (previously was 5.4 x 12.4 cm) with invasion of the left brachiocephalic vein and left internal jugular vein with a mass effect on the superior vena cava as well as bilateral, right greater than left pulmonary veins and invasion of the right atrium and ventricle at the atrioventricular junction. Electronically authenticated by: ED WEST Date: 09/23/2024 17:10
--- NOTE | 2024-09-23 14:28 | ED.GENADUL1 ---
HPI HPI - General Adult General Chief complaint: Nausea/Vomiting/Diarrhea Stated complaint: NAUSEA Time Seen by Provider: 09/23/24 14:10 Source: patient Mode of arrival: Wheelchair History of Present Illness HPI narrative: Patient is a 38-year-old female with a history of T-cell lymphoblastic leukemia who presents to the emergency department with her for not feeling well. reports symptoms started today. Patient was unable to get herself off of the toilet in the bathroom earlier and seemed to be stumbling to walk, she did fall but denies head injury or loss of consciousness that she is aware of. She has been having a headache all day. She is currently in treatment for her cancer with [facility]. She received an infusion on 09/15/2024. She was also recently started on Cymbalta and [place] and family wonders if she may be having a medication reaction. Patient states she is very nauseous in addition to the headache but has not had any fevers, vomiting or upper respiratory symptoms. She states she does feel more short of breath than normal and has been feeling winded. She is currently receiving Lovenox injections for known DVT in the left side of her neck. She was initially found to have a large mediastinal mass. She has an NG tube in place for feeding as she has an esophageal fistula. She also has a PICC line to the right arm. She denies urinary symptoms. Related Data Home Medications ?Medication ?Instructions ?Recorded ?Confirmed acyclovir 400 mg tablet 400 mg PO BID 05/26/24 05/26/24 cetirizine 10 mg tablet (24Hour 5 mg PO DAILY 05/26/24 05/26/24 Allergy) gabapentin 300 mg capsule 300 mg PO BID 05/26/24 05/26/24 levofloxacin 500 mg tablet 500 mg PO DAILY 05/26/24 05/26/24 ondansetron HCl 8 mg tablet 8 mg PO Q8H 05/26/24 05/26/24 pantoprazole 20 mg tablet,delayed 20 mg PO DAILY 05/26/24 05/26/24 release Previous Rx's ?Medication ?Instructions ?Recorded enoxaparin 80 mg/0.8 mL 80 mg (0.8 mL) subcut Q12H 30 days 04/05/24 subcutaneous syringe (Lovenox) #48 mL hydroxyzine HCl 25 mg tablet 25 mg PO Q8H PRN anxiety #30 tabs 04/05/24 Allergies Allergy/AdvReac Type Severity Reaction Status Date / Time No Known Drug Allergies Allergy Verified 04/04/24 20:19 Opioid HPI Opioid Management Most Recent Opioid Data: Last Office Visit 07/15/24 13:00 07/15/24 Last Pain Scale 7 09/23/24 14:44 09/23/24 Last MAR Pain Assessment 09/23/24 14:44 Last ORT Total Score 1 04/05/24 02:14 04/05/24 Last ORT Risk Category Low Risk 04/05/24 02:14 04/05/24 Review of Systems ROS Constitutional Denies: fever or chills Ears, nose, mouth, and throat Denies: throat pain Cardiovascular Denies: chest pain Respiratory Reports: shortness of breath and cough Gastrointestinal Reports: nausea; Denies: abdominal pain, vomiting or diarrhea Integumentary/Breast Denies: rash Neurological Denies: numbness in extremities or weakness in extremities Hematologic/Lymphatic Denies: easy bruising or easy bleeding PFSH PFSH Medical History (Updated 09/23/24 @ 18:32 by ANDRES Condon) Post hysterectomy menopause ?E89.40 - Asymptomatic postprocedural ovarian failure (ICD-10) ?Z90.710 - Acquired absence of both cervix and uterus (ICD-10) Fibroid ?D21.9 - Benign neoplasm of connective and other soft tissue, unspecified (ICD-10) Surgical History (Updated 04/05/24 @ 10:19 by Shaikh Janna MD) H/O: hysterectomy ?Z90.710 - Acquired absence of both cervix and uterus (ICD-10) Social History Highest level of school completed/degree received: 3rd grade Gender Identity: female Exam Narrative Exam Narrative: Gen.: Awake, alert, ill-appearing female Head: Normocephalic, atraumatic ENT: Moist mucous membranes, NG tube in place to the right nostril Respiratory: No respiratory distress, lungs clear bilaterally Cardio: Regular rate and rhythm Gastrointestinal: Abdomen is soft, nondistended and nontender to palpation Extremities: Moves extremities equally, PICC line in place to the right arm Psych: Normal mood and affect Neuro: No focal neuro deficit Skin: Warm, dry, intact Constitutional Vital Signs, click to edit/add: Last Vital Signs Temp 98.5 F 09/23/24 14:12 Pulse 108 H 09/23/24 16:52 Resp 18 09/23/24 16:52 BP 120/74 09/23/24 16:52 Pulse Ox 97 09/23/24 16:52 O2 Del Method Room Air 09/23/24 14:12 Course Vital Signs Vital signs: Vital Signs Temperature 98.5 F 09/23/24 14:12 Pulse Rate 80 09/23/24 14:12 Respiratory Rate 16 09/23/24 14:12 Blood Pressure 113/73 09/23/24 14:12 Pulse Oximetry 94 L 09/23/24 14:12 Oxygen Delivery Method Room Air 09/23/24 14:12 Temperature 98.5 F 09/23/24 14:12 Pulse Rate 108 H 09/23/24 16:52 Respiratory Rate 18 09/23/24 16:52 Blood Pressure 120/74 09/23/24 16:52 Pulse Oximetry 97 09/23/24 16:52 Oxygen Delivery Method Room Air 09/23/24 14:12 Medical Decision Making MDM Narrative Medical decision making narrative: The patient was treated with IV fluids, Dilaudid and Phenergan with significant improvement. Laboratory studies were obtained including blood cultures. The patient has a PICC line to the right arm, she has a known DVT to the left side of the neck so we are unable to use her left arm for vital signs or IV access. Patient was sent for CT of the brain which is unremarkable in addition to a CT angio of the chest as she reported feeling more short of breath and winded. Her urine specimen is negative, she declined respiratory swabs. CT angio of the chest shows that the patient has had interval enlargement of the mediastinal mass in her chest to 9.5 x 16.3 cm in addition to invasion of the left brachiocephalic vein and left internal jugular vein with mass effect on the superior vena cava. 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 She does not have any facial swelling at this time. I discussed the case with Dr. Erickson who has seen the patient locally for infusions for chemotherapy. He recommended that she will likely need radiation, he stated that the this is likely a new finding as he was not aware of this when the patient followed up with him last several weeks ago. Case was discussed with on-call heme/onc doctor at [facility] who recommended contacting the transfer line for the on-call leukemia attending. Dr. Roberts accepted the patient for transfer to [facility] (1800). Patient is hemodynamically stable at this time. 1826: We are awaiting a bed assignment for transfer at this time. Critical care time 35 minutes Medical Records Medical records reviewed: Yes I reviewed the patient's medical records Lab Data Lab results reviewed: Yes I reviewed the patient's lab results Labs: Lab Results 09/23/24 09/23/24 Range/Units 14:54 16:41 WBC 8.0 (4.0-11.0) 10^3/uL RBC 4.28 (4.20-5.40) 10^6/uL Hgb 10.0 L (12.0-16.0) g/dL Hct 33.3 L (36.0-48.0) % MCV 77.8 L (81.0-99.0) fL MCH 23.4 L (26.7-34.0) pg MCHC 30.0 (29.9-35.2) g/dL RDW 18.3 H (11.0-15.0) % Plt Count 369 (150-450) 10^3/uL MPV 10.0 (9.5-13.5) fL Neut % (Auto) 76.0 H (43.0-75.0) % Lymph % (Auto) 9.6 L (20.5-60.0) % Cooper % (Auto) 12.8 H (1.7-12.0) % Eos % (Auto) 0.9 (0.9-7.0) % Baso % (Auto) 0.3 (0.2-2.0) % Neut # (Auto) 6.1 (1.4-6.5) 10^3/uL Lymph # (Auto) 0.8 L (1.2-3.8) 10^3/uL Cooper # (Auto) 1.0 H (0.3-0.8) 10^3/uL Eos # (Auto) 0.1 (0.0-0.7) 10^3/uL Baso # (Auto) 0.0 (0.0-0.1) 10^3/uL Abs Immat Gran (auto) 0.03 (0.00-0.03) 10^3/uL Imm/Tot Granulo (auto) 0.4 (0.0-0.5) % ESR 92 H (<=20) mm/hr PT 12.8 H (9.0-11.6) sec INR 1.23 VBG pH 7.446 H (7.330-7.430) VBG pCO2 44.6 (40.0-52.0) mmHg Sodium 138 (136-145) mmol/L Potassium 4.1 (3.5-5.1) mmol/L Chloride 103 (98-107) mmol/L Carbon Dioxide 31.7 (21.0-32.0) mmol/L Anion Gap 7.4 BUN 16.0 (7.0-18.0) mg/dL Creatinine 0.64 (0.55-1.02) mg/dL Est GFR ( Amer) >60 (>=60 mL/min/1.73m^2) Est GFR (Non-Af Amer) >60 (>=60 mL/min/1.73m^2) BUN/Creatinine Ratio 25.0 Glucose 88 (74-106) mg/dL Lactate 1.0 (0.4-2.0) mmol/L Calcium 8.9 (8.5-10.1) mg/dL Total Bilirubin 1.3 H (0.2-1.0) mg/dL AST 27 (15-37) U/L ALT 46 (14-59) U/L Alkaline Phosphatase 171 H (46-116) U/L Troponin I High Sens <4.0 L (4.0-51.3) pg/mL C-Reactive Protein 9.82 H (<=0.50) mg/dL NT-Pro-B Natriuret Pep 963.0 H* (<=450.0) pg/mL Total Protein 6.5 (6.4-8.2) g/dL Albumin 2.8 L (3.4-5.0) g/dL Globulin 3.7 g/dL Albumin/Globulin Ratio 0.8 Urine Color Lt. yellow (YELLOW) Urine Clarity Clear (CLEAR) Urine pH 8.5 (5.0-9.0) Ur Specific [place] 1.010 (1.005-1.025) Urine Protein Negative (NEG/TRACE) mg/dL Urine Glucose (UA) Negative (NEGATIVE) mg/dL Urine Ketones Negative (NEGATIVE) mg/dL Urine Occult Blood Negative (NEGATIVE) Urine Nitrite Negative (NEGATIVE) Urine Bilirubin Negative (NEGATIVE) Urine Urobilinogen 0.2 (0.2-1.0) EU/dL Ur Leukocyte Esterase Negative (NEGATIVE) Imaging Data CT scan - head: Attestation: I have reviewed the pertinent imaging results. Radiologist's impression: ITS Impressions Head CT 09/23/24 14:22 IMPRESSION: No acute intracranial process. Electronically authenticated by: MIRI CASTELLANOS Date: 09/23/2024 16:21 Chest CTA 09/23/24 14:26 IMPRESSION: No evidence of pulmonary embolus. Small right and trace left pleural effusion and right perihilar middle and lower lobes linear atelectasis. No suspicious pulmonary nodule. Small to moderate pericardial effusion. Interval increase in size of soft tissue density and conglomerated necrotic lymph nodes in the anterior mediastinum, measuring 9.5 x 16.3 cm (previously was 5.4 x 12.4 cm) with invasion of the left brachiocephalic vein and left internal jugular vein with a mass effect on the superior vena cava as well as bilateral, right greater than left pulmonary veins and invasion of the right atrium and ventricle at the atrioventricular junction. Electronically authenticated by: ED WEST Date: 09/23/2024 17:10 ECG Data Attestation: I personally reviewed and interpreted this ECG as follows: (Normal sinus rhythm at a rate of 91, no acute ST elevation or ectopy. EKG reviewed by attending physician) Critical Care Time Critical Care Time Critical Care Time: Yes Total Critical Care Time: 35 Attestation: 35 minutes of critical care time assigned for identification of potentially life-threatening superior vena cava syndrome and transfer to tertiary care Discharge Plan Discharge Chief Complaint: Nausea/Vomiting/Diarrhea Clinical Impression: Superior vena cava compression syndrome, Shortness of breath, Mediastinal mass, Headache Patient Disposition: [facility] Time of Disposition Decision: 18:32 Discharge Location: [facility] [place] Mode of Transportation: EMS Prescriptions / Home Meds: No Action enoxaparin [Lovenox] 80 mg/0.8 mL syringe 80 mg subcut Q12H 30 Days Qty: 48 0RF hydroxyzine HCl 25 mg tablet 25 mg PO Q8H PRN (Reason: anxiety) Qty: 30 0RF acyclovir 400 mg tablet 400 mg PO BID cetirizine [24Hour Allergy] 10 mg tablet 5 mg PO DAILY gabapentin 300 mg capsule 300 mg PO BID levofloxacin 500 mg tablet 500 mg PO DAILY ondansetron HCl 8 mg tablet 8 mg PO Q8H Rx Instructions: 1st dose 1-2 hr before radiation pantoprazole 20 mg tablet,delayed release (DR/EC) 20 mg PO DAILY Print Language: Setswana Referrals: MANISHA PITTS [Primary Care Provider] - 1 week
[2024-09-23] MEDS: HYDROMORPHONE HCL 0.5 MG/0.5 ML SYRINGE IV ×2 (14:44→18:55)
[2024-09-23] MEDS: PROMETHAZINE HCL 12.5 MG in 0.9 % SODIUM CHLORIDE 50 ML 202 MG IV (14:44)
[2024-09-23] MEDS: 0.9 % SODIUM CHLORIDE 1,000 ML 999 ML IV (14:44)
[2024-09-23 15:01] LABS: Basophils Percent Auto 0.3 % (0.2-2.0); Eosinophils Absolute Auto 0.1 10^3/uL (0.0-0.7); Eosinophils Percent Auto 0.9 % (0.9-7.0); Hematocrit 33.3 % (36.0-48.0); Immature Granulocytes Abs Auto 0.03 10^3/uL (0.00-0.03); Immature Granulocytes Pct Auto 0.4 % (0.0-0.5); Lymphocytes Absolute Auto 0.8 10^3/uL (1.2-3.8); Lymphocytes Percent Auto 9.6 % (20.5-60.0); Mean Corpuscular Hemoglobin 23.4 pg (26.7-34.0); Mean Corpuscular Volume 77.8 fL (81.0-99.0); Monocytes Percent Auto 12.8 % (1.7-12.0); Neutrophils Absolute Auto 6.1 10^3/uL (1.4-6.5); Platelet Count 369 10^3/uL (150-450); Red Blood Count 4.28 10^6/uL (4.20-5.40); Red Cell Distribution Width 18.3 % (11.0-15.0)
[2024-09-23 15:05] LABS: PCO2 VBG 44.6 mmHg (40.0-52.0); pH VBG 7.446 (7.330-7.430)
[2024-09-23 15:09] LABS: Erythrocyte Sedimentation Rate 92 mm/hr (<=20)
--- NOTE | 2024-09-23 15:11 | PC.NURSE ---
pt arrived with PICC line already placed
--- NOTE | 2024-09-23 15:12 | PC.NURSE ---
pt states fell in bathroom when standing from toilet. pt unsure if she was dizzy stating she cannot remember what happened. pt c/o nausea and headache states headache feels like pressure on left side.
[2024-09-23 15:14] LABS: INR 1.23; Prothrombin Time 12.8 sec (9.0-11.6)
[2024-09-23 15:24] LABS: Alanine Aminotransferase 46 U/L (14-59); Albumin Globulin Ratio 0.8; Albumin Level 2.8 g/dL (3.4-5.0); Alkaline Phosphatase 171 U/L (46-116); Anion Gap 7.4; Aspartate Amino Transferase 27 U/L (15-37); Bilirubin Total 1.3 mg/dL (0.2-1.0); C Reactive Protein 9.82 mg/dL (<=0.50); Calcium 8.9 mg/dL (8.5-10.1); Carbon Dioxide 31.7 mmol/L (21.0-32.0); Chloride 103 mmol/L (98-107); Estimated GFR (African America >60 (>=60 mL/min/1.73m^2); Estimated GFR (Non-African Ame >60 (>=60 mL/min/1.73m^2); Globulin 3.7 g/dL; Glucose 88 mg/dL (74-106); Potassium 4.1 mmol/L (3.5-5.1); Sodium 138 mmol/L (136-145); Total Protein 6.5 g/dL (6.4-8.2); Troponin I High Sensitivity <4.0 pg/mL (4.0-51.3)
[2024-09-23 16:49] LABS: Bilirubin Urine NEGATIVE (NEGATIVE); Blood Urine NEGATIVE (NEGATIVE); Clarity Urine CLEAR (CLEAR); Color Urine LT. YELLOW (YELLOW); Glucose Urine UA NEGATIVE (NEGATIVE); Ketones Urine NEGATIVE (NEGATIVE); Leukocyte Esterase Urine NEGATIVE (NEGATIVE); Nitrite Urine NEGATIVE (NEGATIVE); Protein Urine NEGATIVE (NEG/TRACE); Urobilinogen Urine 0.2 EU/dL (0.2-1.0); pH Urine 8.5 (5.0-9.0)
[2024-09-23 16:50] LABS: Urine Microscopic Indicated NO
[2024-09-24] VITALS (47 sets, daily range): BP systolic 114–174; BP diastolic 77–106; PULSE 91–139; O2SAT 92–100
[2024-09-24] MEDS: HYDROMORPHONE HCL 0.5 MG/0.5 ML SYRINGE IV (02:33)
[2024-09-24] MEDS: PANTOPRAZOLE SODIUM 40 MG VIAL IV (07:13)
[2024-09-24] MEDS: LORAZEPAM 2 MG/ML VIAL 0.5 MG IV (10:17)
[2024-09-24] MEDS: 0.9 % SODIUM CHLORIDE 1,000 ML 1000 ML IV (10:18)
[2024-09-24] MEDS: METOPROLOL TARTRATE 5 MG/5 ML VIAL IVP (11:45)
[2024-09-28 11:08] LABS: Osmolality, Urine 461 mOsmol/kg (.)
== END 2024-09-24 15:15 | disposition short-term general hospital (02) ==
PROVIDERS: Emergency Medicine; Physician Assistant; Emergency Provider Emergency Medicine; PCP Family Medicine
DX: I87.1 Compression of vein (principal); C91.00 Acute lymphoblastic leukemia not having achieved remission; R51.9 Headache, unspecified; R06.02 Shortness of breath; K22.89 Other specified disease of esophagus; Z90.710 Acquired absence of both cervix and uterus; R42 Dizziness and giddiness; R26.81 Unsteadiness on feet; R22.2 Localized swelling, mass and lump, trunk; Z79.60 Long term (current) use of unspecified immunomodulators and immunosuppressants; I82.C12 Acute embolism and thrombosis of left internal jugular vein
CPT/HCPCS: 36415; 70450; 71275; 80053; 81003; 82800; 83605; 83880; 83935; 84484; 85025; 85610; 85652; 86140; 87040; 87420; 87804; 87811; 93005; 96365; 96375; 96376; 99285; J1171; J2060; J2550; Q9967

== ENCOUNTER 2024-09-30 07:41 | Outpatient (RCR) | payer OTHER, SELFPAY ==
[2024-09-07] VITALS (7 sets, daily range): BP systolic 133–177; BP diastolic 84–135; PULSE 113–121; TEMP 37.1; O2SAT 91–96
[2024-09-07 10:01] LABS: Basophils Percent Auto 0.1 % (0.2-2.0); Eosinophils Percent Auto 0.5 % (0.9-7.0); Hematocrit 33.9 % (36.0-48.0); Hemoglobin 10.3 g/dL (12.0-16.0); Immature Granulocytes Abs Auto 0.02 10^3/uL (0.00-0.03); Immature Granulocytes Pct Auto 0.2 % (0.0-0.5); Lymphocytes Absolute Auto 0.5 10^3/uL (1.2-3.8); Mean Corpuscular HGB Conc 30.4 g/dL (29.9-35.2); Mean Corpuscular Hemoglobin 23.8 pg (26.7-34.0); Mean Corpuscular Volume 78.5 fL (81.0-99.0); Mean Platelet Volume 10.2 fL (9.5-13.5); Monocytes Absolute Auto 0.7 10^3/uL (0.3-0.8); Monocytes Percent Auto 8.6 % (1.7-12.0); Neutrophils Absolute Auto 7.3 10^3/uL (1.4-6.5); Neutrophils Percent Auto 84.6 % (43.0-75.0); Platelet Count 336 10^3/uL (150-450); Red Blood Count 4.32 10^6/uL (4.20-5.40); Red Cell Distribution Width 17.4 % (11.0-15.0); White Blood Count 8.6 10^3/uL (4.0-11.0)
[2024-09-07 10:13] LABS: Lactate Dehydrogenase 491 U/L (81-234); Uric Acid 2.6 mg/dL (2.6-6.0)
[2024-09-07 11:24] LABS: Alanine Aminotransferase 51 U/L (14-59); Albumin Globulin Ratio 0.6; Albumin Level 2.7 g/dL (3.4-5.0); Alkaline Phosphatase 237 U/L (46-116); Anion Gap 12.6; Aspartate Amino Transferase 24 U/L (15-37); BUN Creatinine Ratio 25.4; Bilirubin Total 0.7 mg/dL (0.2-1.0); Calcium 9.6 mg/dL (8.5-10.1); Carbon Dioxide 29.4 mmol/L (21.0-32.0); Chloride 106 mmol/L (98-107); Estimated GFR (African America >60 (>=60 mL/min/1.73m^2); Estimated GFR (Non-African Ame >60 (>=60 mL/min/1.73m^2); Globulin 4.7 g/dL; Glucose 119 mg/dL (74-106); Sodium 144 mmol/L (136-145); Total Protein 7.4 g/dL (6.4-8.2)
[2024-09-07] MEDS: 0.9 % SODIUM CHLORIDE 250 ML 10 ML IV (12:33)
[2024-09-07] MEDS: SODIUM CHLORIDE 0.9% IV ×2 (12:34→13:17)
[2024-09-07] MEDS: ONDANSETRON HCL IV (12:34)
[2024-09-07] MEDS: VINCRISTINE SULFATE IV (13:17)
--- NOTE | 2024-09-07 14:19 | PC.NURSE ---
Pt here for C.1D.1 Vincristine. Labs drawn from PICC. Pt was seen Dr. Erickson, labs results reviewed with MD. Order rec'd to proceed with tx. Zofran added as pre-med per MD. Pt tolerated w/o incident. Positive blood return obtained prior and post infusion. Pt d/c'd stable. Returns wkly for drsg change and labs and q 4 wks for Vincristine.
== END 2024-10-05 23:59 | disposition home or self-care (01) ==
LOC: HEMC 07:41
PROVIDERS: PCP Family Medicine; Visit Provider Internal Medicine Hematology & Oncology
DX: Z51.11 Encounter for antineoplastic chemotherapy (principal); C91.00 Acute lymphoblastic leukemia not having achieved remission; D50.9 Iron deficiency anemia, unspecified; K90.9 Intestinal malabsorption, unspecified; C38.1 Malignant neoplasm of anterior mediastinum; D64.9 Anemia, unspecified; Z90.710 Acquired absence of both cervix and uterus; I82.B11 Acute embolism and thrombosis of right subclavian vein
CPT/HCPCS: 36415; 36592; 80053; 83615; 84550; 85007; 85025; 85027; 94640; 96367; 96409; G0463; J2405; J2545; J9370

== ENCOUNTER 2024-11-02 07:40 | Outpatient (RCR) | payer OTHER, SELFPAY ==
[2024-10-27 09:35] VITALS: BP 93/59; PULSE 122; TEMP 36.8; O2SAT 93
[2024-10-27 10:33] LABS: Hematocrit 35.3 % (36.0-48.0); Hemoglobin 10.1 g/dL (12.0-16.0); Mean Corpuscular HGB Conc 28.6 g/dL (29.9-35.2); Mean Corpuscular Hemoglobin 22.7 pg (26.7-34.0); Mean Corpuscular Volume 79.5 fL (81.0-99.0); Mean Platelet Volume 10.1 fL (9.5-13.5); Platelet Count 210 10^3/uL (150-450); Red Blood Count 4.44 10^6/uL (4.20-5.40); Red Cell Distribution Width 21.5 % (11.0-15.0); White Blood Count 4.5 10^3/uL (4.0-11.0)
[2024-10-27 10:43] LABS: Alanine Aminotransferase 35 U/L (14-59); Albumin Globulin Ratio 0.6; Albumin Level 2.5 g/dL (3.4-5.0); Alkaline Phosphatase 337 U/L (46-116); Anion Gap 11.6; Aspartate Amino Transferase 34 U/L (15-37); BUN Creatinine Ratio 14.8; Bilirubin Total 0.9 mg/dL (0.2-1.0); Calcium 8.7 mg/dL (8.5-10.1); Carbon Dioxide 29.6 mmol/L (21.0-32.0); Chloride 104 mmol/L (98-107); Estimated GFR (African America >60 (>=60 mL/min/1.73m^2); Estimated GFR (Non-African Ame >60 (>=60 mL/min/1.73m^2); Globulin 4.1 g/dL; Glucose 96 mg/dL (74-106); Potassium 4.2 mmol/L (3.5-5.1); Sodium 141 mmol/L (136-145); Total Protein 6.6 g/dL (6.4-8.2)
[2024-10-27 10:55] LABS: Anisocytosis 2+; Lymphocytes Absolute Manual 0.67 10^3/uL (1.20-3.80); Monocytes Absolute Manual 0.76 10^3/uL (0.30-0.80); Segmented Neut Absolute Manual 3.06 10^3/uL (1.4-6.5)
[2024-10-27 10:56] LABS: Ovalocytes 1+; Polychromasia 1+
[2024-11-02 13:17] VITALS: BP 146/106; PULSE 119; TEMP 36.2; O2SAT 99
== END 2024-11-03 11:11 | disposition home or self-care (01) ==
LOC: INF 07:40
PROVIDERS: PCP Family Medicine
DX: C83.50 Lymphoblastic (diffuse) lymphoma, unspecified site (principal)
CPT/HCPCS: 36592; 80053; 85007; 85027

== ENCOUNTER 2024-11-02 07:40 | Outpatient (RCR) | payer OTHER, SELFPAY ==
[2024-11-02 13:32] LABS: Basophils Percent Auto 0.6 % (0.2-2.0); Eosinophils Absolute Auto 0.1 10^3/uL (0.0-0.7); Eosinophils Percent Auto 1.3 % (0.9-7.0); Hematocrit 39.3 % (36.0-48.0); Hemoglobin 11.4 g/dL (12.0-16.0); Immature Granulocytes Abs Auto 0.02 10^3/uL (0.00-0.03); Immature Granulocytes Pct Auto 0.4 % (0.0-0.5); Lymphocytes Absolute Auto 0.9 10^3/uL (1.2-3.8); Mean Corpuscular Hemoglobin 22.8 pg (26.7-34.0); Mean Corpuscular Volume 78.8 fL (81.0-99.0); Mean Platelet Volume 10.1 fL (9.5-13.5); Monocytes Absolute Auto 0.7 10^3/uL (0.3-0.8); Monocytes Percent Auto 12.9 % (1.7-12.0); Neutrophils Absolute Auto 3.8 10^3/uL (1.4-6.5); Neutrophils Percent Auto 68.8 % (43.0-75.0); Platelet Count 332 10^3/uL (150-450); Red Blood Count 4.99 10^6/uL (4.20-5.40); Red Cell Distribution Width 20.8 % (11.0-15.0); White Blood Count 5.4 10^3/uL (4.0-11.0)
[2024-11-02 13:46] LABS: Alanine Aminotransferase 56 U/L (14-59); Albumin Globulin Ratio 0.6; Albumin Level 2.9 g/dL (3.4-5.0); Alkaline Phosphatase 374 U/L (46-116); Anion Gap 9.4; Aspartate Amino Transferase 50 U/L (15-37); Bilirubin Total 0.7 mg/dL (0.2-1.0); Calcium 9.4 mg/dL (8.5-10.1); Carbon Dioxide 30.7 mmol/L (21.0-32.0); Chloride 103 mmol/L (98-107); Estimated GFR (African America >60 (>=60 mL/min/1.73m^2); Estimated GFR (Non-African Ame >60 (>=60 mL/min/1.73m^2); Globulin 4.6 g/dL; Glucose 117 mg/dL (74-106); Lactate Dehydrogenase 288 U/L (81-234); Potassium 4.1 mmol/L (3.5-5.1); Sodium 139 mmol/L (136-145); Total Protein 7.5 g/dL (6.4-8.2); Uric Acid 2.1 mg/dL (2.6-6.0)
== END 2024-11-03 11:12 | disposition home or self-care (01) ==
LOC: HEMC 07:40
PROVIDERS: PCP Family Medicine; Visit Provider Internal Medicine Hematology & Oncology
DX: C38.1 Malignant neoplasm of anterior mediastinum (principal); C91.00 Acute lymphoblastic leukemia not having achieved remission; I82.B11 Acute embolism and thrombosis of right subclavian vein; D50.9 Iron deficiency anemia, unspecified; K90.9 Intestinal malabsorption, unspecified; D64.9 Anemia, unspecified; Z90.710 Acquired absence of both cervix and uterus; Z79.01 Long term (current) use of anticoagulants; R13.10 Dysphagia, unspecified; R79.89 Other specified abnormal findings of blood chemistry
CPT/HCPCS: 36415; 80053; 83615; 84550; 85025; G0463

== ENCOUNTER 2024-11-10 07:59 | Outpatient (RCR) | payer OTHER, SELFPAY ==
[2024-11-10 13:00] VITALS: BP 130/88; PULSE 130; TEMP 36.6; O2SAT 92
[2024-11-10 13:50] VITALS: PULSE 117; O2SAT 94
[2024-11-10] MEDS: ONDANSETRON HCL IV (14:00)
[2024-11-10] MEDS: SODIUM CHLORIDE 0.9% IV ×2 (14:00→14:48)
[2024-11-10 14:30] VITALS: O2SAT 95
[2024-11-10] MEDS: ALBUTEROL SULFATE 2.5 MG/3 ML VIAL NEB IH (14:30)
[2024-11-10] MEDS: VINCRISTINE SULFATE IV (14:48)
[2024-11-10 15:03] VITALS: BP 138/93; PULSE 120; O2SAT 95
--- NOTE | 2024-11-10 15:24 | PC.NURSE ---
1300: Pt. to [facility] via w/c accompanied by . Pt. taken to ICU isolation room for Pentamadine respiratory treatment. Shanti Quintanilla, resp. therapist to administer treatment. 1355: Shanti Quintanilla, RT phones this dept. stating pt. nauseated with Pentamadine treatment. 1400: IV Zofran initiated at this time per this RN for c/o nausea with treatment. Pt. spitting up increased amount clear phlegm. Relays intolerance of treatment, but cont. to attempt to complete do 1420: Pentamadine treatment stopped due to increased nausea and decreased Spo2 84%. O2 applied at 3L n/c. 1425: Albuterol HHN treatment initiated. Lungs with exp wheeze to right upper lobe post. 1433: Nebulizer treatment complete. Pt. relays feeling much better . RR 20, Spo2 95% on room air. Transported to [facility] via w/c for chemo infusion as ordered. 1448: IV Vincristine initiated at this time. VSS. Denies c/o. Assisted to recliner for comfort. at bedside. 1503: IV Vincristine completed without s&s of adverse reaction. VSS. Denies c/o pain, n/v or dyspnea. PICC line flushed with saline, new chg caps applied. 1510: Pt d/c'd via w/c to home with .
== END 2024-12-01 13:22 | disposition home or self-care (01) ==
LOC: HEMC 07:59
PROVIDERS: PCP Family Medicine; Visit Provider Internal Medicine Hematology & Oncology
DX: Z51.11 Encounter for antineoplastic chemotherapy (principal); C38.1 Malignant neoplasm of anterior mediastinum; C91.00 Acute lymphoblastic leukemia not having achieved remission; I82.B11 Acute embolism and thrombosis of right subclavian vein; D50.9 Iron deficiency anemia, unspecified; K90.9 Intestinal malabsorption, unspecified; D64.9 Anemia, unspecified; C83.50 Lymphoblastic (diffuse) lymphoma, unspecified site; Z90.710 Acquired absence of both cervix and uterus; Z90.721 Acquired absence of ovaries, unilateral; Z79.01 Long term (current) use of anticoagulants; R13.10 Dysphagia, unspecified; R79.89 Other specified abnormal findings of blood chemistry
CPT/HCPCS: 80053; 85025; 94640; 96367; 96409; G0463; J2405; J2545; J9370

== ENCOUNTER 2024-12-01 07:34 | Outpatient (RCR) | payer OTHER, SELFPAY ==
[2024-11-09 10:15] VITALS: BP 139/85; PULSE 118; TEMP 35.8; O2SAT 95
[2024-11-09 11:04] LABS: Basophils Percent Auto 0.6 % (0.2-2.0); Eosinophils Absolute Auto 0.1 10^3/uL (0.0-0.7); Eosinophils Percent Auto 1.7 % (0.9-7.0); Hematocrit 42.6 % (36.0-48.0); Hemoglobin 12.6 g/dL (12.0-16.0); Immature Granulocytes Abs Auto 0.01 10^3/uL (0.00-0.03); Immature Granulocytes Pct Auto 0.2 % (0.0-0.5); Lymphocytes Absolute Auto 1.3 10^3/uL (1.2-3.8); Lymphocytes Percent Auto 20.2 % (20.5-60.0); Mean Corpuscular HGB Conc 29.6 g/dL (29.9-35.2); Mean Corpuscular Hemoglobin 23.5 pg (26.7-34.0); Mean Corpuscular Volume 79.3 fL (81.0-99.0); Mean Platelet Volume 11.1 fL (9.5-13.5); Monocytes Absolute Auto 0.7 10^3/uL (0.3-0.8); Monocytes Percent Auto 10.1 % (1.7-12.0); Neutrophils Absolute Auto 4.3 10^3/uL (1.4-6.5); Neutrophils Percent Auto 67.2 % (43.0-75.0); Platelet Count 408 10^3/uL (150-450); Red Blood Count 5.37 10^6/uL (4.20-5.40); Red Cell Distribution Width 20.9 % (11.0-15.0); White Blood Count 6.4 10^3/uL (4.0-11.0)
--- NOTE | 2024-11-09 11:08 | PC.NURSE ---
1015: Pt. to [facility] via w/c accompanied by . Transfers in to phlebotomy chair. Blood drawn from RUE picc line easily, but slow. Flushes easily with saline. Using sterile technique, PICC line dressing changed. Pt. tolerated without c/o. 1045: Dr. Erickson in for MD visit.
[2024-11-09 11:25] LABS: Alanine Aminotransferase 94 U/L (14-59); Albumin Globulin Ratio 0.8; Albumin Level 3.3 g/dL (3.4-5.0); Alkaline Phosphatase 329 U/L (46-116); Anion Gap 10.8; Aspartate Amino Transferase 64 U/L (15-37); BUN Creatinine Ratio 31.5; Bilirubin Total 0.8 mg/dL (0.2-1.0); Calcium 9.5 mg/dL (8.5-10.1); Carbon Dioxide 31.7 mmol/L (21.0-32.0); Chloride 106 mmol/L (98-107); Estimated GFR (African America >60 (>=60 mL/min/1.73m^2); Estimated GFR (Non-African Ame >60 (>=60 mL/min/1.73m^2); Globulin 4.2 g/dL; Glucose 96 mg/dL (74-106); Potassium 4.5 mmol/L (3.5-5.1); Sodium 144 mmol/L (136-145); Total Protein 7.5 g/dL (6.4-8.2)
[2024-11-17 09:41] LABS: Basophils Percent Auto 0.1 % (0.2-2.0); Eosinophils Percent Auto 0.1 % (0.9-7.0); Hematocrit 40.4 % (36.0-48.0); Hemoglobin 11.6 g/dL (12.0-16.0); Immature Granulocytes Abs Auto 0.04 10^3/uL (0.00-0.03); Immature Granulocytes Pct Auto 0.4 % (0.0-0.5); Lymphocytes Absolute Auto 1.1 10^3/uL (1.2-3.8); Lymphocytes Percent Auto 11.4 % (20.5-60.0); Mean Corpuscular HGB Conc 28.7 g/dL (29.9-35.2); Mean Corpuscular Hemoglobin 23.7 pg (26.7-34.0); Mean Corpuscular Volume 82.4 fL (81.0-99.0); Mean Platelet Volume 10.7 fL (9.5-13.5); Monocytes Absolute Auto 0.6 10^3/uL (0.3-0.8); Monocytes Percent Auto 6.6 % (1.7-12.0); Neutrophils Absolute Auto 7.6 10^3/uL (1.4-6.5); Neutrophils Percent Auto 81.4 % (43.0-75.0); Platelet Count 326 10^3/uL (150-450); Red Cell Distribution Width 18.6 % (11.0-15.0); White Blood Count 9.3 10^3/uL (4.0-11.0)
[2024-11-17 09:44] VITALS: BP 154/103; PULSE 102; TEMP 36.9; O2SAT 95
--- NOTE | 2024-11-17 09:45 | PC.NURSE ---
rt upper groshong picc intact, site clear. excellent blood return from both ports, labs drawn and sent. both ports flushed with ns caps and CHG caps changed. Old site dressing removed, site clear no reddness or edema or drainage. cleansed with CHG sponge, new stat lock and CHG dressing applied. approx 4 cm of external catheter length. patient tolerated well. released per wheelchair
[2024-11-17 09:49] LABS: Alanine Aminotransferase 179 U/L (14-59); Albumin Globulin Ratio 0.9; Albumin Level 3.4 g/dL (3.4-5.0); Alkaline Phosphatase 277 U/L (46-116); Anion Gap 8.8; Aspartate Amino Transferase 75 U/L (15-37); BUN Creatinine Ratio 28.8; Calcium 9.6 mg/dL (8.5-10.1); Carbon Dioxide 33.1 mmol/L (21.0-32.0); Chloride 104 mmol/L (98-107); Estimated GFR (African America >60 (>=60 mL/min/1.73m^2); Estimated GFR (Non-African Ame >60 (>=60 mL/min/1.73m^2); Globulin 3.9 g/dL; Glucose 120 mg/dL (74-106); Potassium 3.9 mmol/L (3.5-5.1); Sodium 142 mmol/L (136-145); Total Protein 7.3 g/dL (6.4-8.2)
[2024-11-24 08:55] VITALS: BP 143/94; PULSE 115; TEMP 36.3; O2SAT 96
--- NOTE | 2024-11-24 08:59 | PC.NURSE ---
Right upper arm PICC dressing removed and site care provided. Caps changed after labs drawn. Approximately 4 cm exposed currently. New stat-loc and CHG dressing applied to site. Patient tolerated well.
[2024-11-24 09:17] LABS: Basophils Percent Auto 0.4 % (0.2-2.0); Eosinophils Absolute Auto 0.1 10^3/uL (0.0-0.7); Eosinophils Percent Auto 2.6 % (0.9-7.0); Hematocrit 42.3 % (36.0-48.0); Immature Granulocytes Abs Auto 0.01 10^3/uL (0.00-0.03); Immature Granulocytes Pct Auto 0.2 % (0.0-0.5); Lymphocytes Absolute Auto 0.7 10^3/uL (1.2-3.8); Lymphocytes Percent Auto 15.9 % (20.5-60.0); Mean Corpuscular HGB Conc 28.4 g/dL (29.9-35.2); Mean Corpuscular Hemoglobin 24.4 pg (26.7-34.0); Mean Corpuscular Volume 86.2 fL (81.0-99.0); Mean Platelet Volume 11.2 fL (9.5-13.5); Monocytes Absolute Auto 0.4 10^3/uL (0.3-0.8); Neutrophils Absolute Auto 3.3 10^3/uL (1.4-6.5); Neutrophils Percent Auto 71.9 % (43.0-75.0); Platelet Count 308 10^3/uL (150-450); Red Cell Distribution Width 20.2 % (11.0-15.0); White Blood Count 4.6 10^3/uL (4.0-11.0)
[2024-11-24 09:29] LABS: Red Blood Count 4.91 10^6/uL (4.20-5.40)
[2024-11-24 09:40] LABS: Alanine Aminotransferase 153 U/L (14-59); Albumin Globulin Ratio 0.9; Albumin Level 3.4 g/dL (3.4-5.0); Alkaline Phosphatase 397 U/L (46-116); Anion Gap 11.5; Aspartate Amino Transferase 76 U/L (15-37); Bilirubin Total 1.7 mg/dL (0.2-1.0); Calcium 9.8 mg/dL (8.5-10.1); Carbon Dioxide 32.6 mmol/L (21.0-32.0); Chloride 104 mmol/L (98-107); Estimated GFR (African America >60 (>=60 mL/min/1.73m^2); Estimated GFR (Non-African Ame >60 (>=60 mL/min/1.73m^2); Globulin 3.9 g/dL; Glucose 152 mg/dL (74-106); Potassium 4.1 mmol/L (3.5-5.1); Sodium 144 mmol/L (136-145); Total Protein 7.3 g/dL (6.4-8.2)
[2024-12-01 09:33] LABS: Hematocrit 36.4 % (36.0-48.0); Hemoglobin 11.1 g/dL (12.0-16.0); Mean Corpuscular HGB Conc 30.5 g/dL (29.9-35.2); Mean Corpuscular Hemoglobin 25.3 pg (26.7-34.0); Mean Corpuscular Volume 83.1 fL (81.0-99.0); Mean Platelet Volume 11.1 fL (9.5-13.5); Platelet Count 251 10^3/uL (150-450); Red Blood Count 4.38 10^6/uL (4.20-5.40); Red Cell Distribution Width 21.9 % (11.0-15.0); White Blood Count 3.2 10^3/uL (4.0-11.0)
[2024-12-01 09:34] VITALS: BP 136/85; PULSE 103; TEMP 36.6; O2SAT 94
--- NOTE | 2024-12-01 09:36 | PC.NURSE ---
0900 Arrival ambulatory accompanied by , alert, oriented to place and time. grosong picc intact rt upper arm, site clear, 5 cm exposed catheter, old dressing removed, new stat lock and CHG dressing applied. excellent blood return noted, labs drawn, patient tolerated well. 0930 released ambulatory with
[2024-12-01 09:49] LABS: Alanine Aminotransferase 134 U/L (14-59); Albumin Globulin Ratio 0.9; Albumin Level 3.1 g/dL (3.4-5.0); Alkaline Phosphatase 271 U/L (46-116); Anion Gap 10.9; Aspartate Amino Transferase 77 U/L (15-37); BUN Creatinine Ratio 25.9; Calcium 8.9 mg/dL (8.5-10.1); Carbon Dioxide 29.8 mmol/L (21.0-32.0); Chloride 104 mmol/L (98-107); Estimated GFR (African America >60 (>=60 mL/min/1.73m^2); Estimated GFR (Non-African Ame >60 (>=60 mL/min/1.73m^2); Globulin 3.6 g/dL; Glucose 115 mg/dL (74-106); Potassium 4.7 mmol/L (3.5-5.1); Sodium 140 mmol/L (136-145); Total Protein 6.7 g/dL (6.4-8.2)
[2024-12-01 09:58] LABS: Eosinophils Absolute Manual 0.06 10^3/uL (0.00-0.70); Lymphocytes Absolute Manual 0.76 10^3/uL (1.20-3.80); Monocytes Absolute Manual 0.19 10^3/uL (0.30-0.80); Segmented Neut Absolute Manual 2.17 10^3/uL (1.4-6.5)
== END 2024-12-01 13:22 | disposition home or self-care (01) ==
LOC: INF 07:34
PROVIDERS: PCP Family Medicine
DX: C83.50 Lymphoblastic (diffuse) lymphoma, unspecified site (principal)
CPT/HCPCS: 36415; 36591; 36592; 80053; 85007; 85025; 85027

== ENCOUNTER 2024-12-03 15:05 | Emergency (ER) | payer OTHER, SELFPAY ==
[2024-12-03 15:14] VITALS: BP 143/90; PULSE 88; TEMP 37.3; O2SAT 96; BMI 30.3
[2024-12-03 16:19] VITALS: BP 145/78; PULSE 88; O2SAT 96
--- NOTE | 2024-12-03 16:21 | PC.NURSE ---
Patient denies any chest pain or discomfort at this time.
--- NOTE | 2024-12-03 16:47 | ED.GENADUL1 ---
HPI HPI - General Adult General Chief complaint: Chest Pain Stated complaint: CHEST PRESSURE Time Seen by Provider: 12/03/24 16:45 Source: patient Mode of arrival: walk-in History of Present Illness HPI narrative: CAT scanPatient is a 39-year-old female who is presenting to the ER today at the recommendation of her oncologist from the [facility] in of her chest. Patient feels like she is having some subtle pressure to the middle of her sternum. Patient has longstanding mass to her chest secondary to cancer. Patient's oncologist are at the [facility]. Patient has a PICC line to the right arm. Patient has a Corpak in. Corpak is chronic. Patient last had chemotherapy to the beginning of November and is due for chemotherapy next week. is at bedside. is excellent historian. Patient has no fever or chills. Patient looks rather well today compared to other ER visits we have seen her. She is not short of breath. She states she has no heavy but some mild pressure to the mid sternum. Patient was sent to the ER to have a repeat CTA to make sure the mass has not enlarged. Patient was admitted in September 23, 2024 from [facility]. Patient was in the hospital for 1 week at that time. Patient's mass was 20% larger, but she has some changes to her chemotherapy, treatments, and the mass is getting smaller. Patient has no new abdominal pain nausea or vomiting. She has no chest squeezing, tightness, sharp stabbing pain, she feels subtle pressure to the mid sternum. is excellent historian as well. All systems are negative except as noted/marked. All systems reviewed and otherwise negative. Nurses note and vital signs reviewed and patient is not hypoxic. General: The patient appears well and in no apparent distress. Patient is resting comfortably on cart. Patient is not toxic, lethargic, or listless Skin: Warm, dry, no pallor noted. There is no rash noted. No petechiae, purpura. Head: Normocephalic, atraumatic Eye: Normal conjunctiva, no drainage, EOMI. PERRL Ears, Nose, Mouth, and Throat: oral mucosa is moist. Corpak is in place. Nares patent. Mouth without vesicles. Cardiovascular: Regular Rate and Rhythm, no murmur, gallop, rub. Patient does have reproducible tenderness to palpation to mid sternum. Respiratory: Patient is in no distress, no accessory muscle use, lungs are clear to auscultation, no wheezing, rales or rhonchi Back: non-tender, no CVA tenderness bilaterally to percussion. No CT LS midline pain GI: Soft, minimal midepigastric tenderness to palpation, no peritoneal signs, otherwise no tenderness to palpation, no masses appreciated. No rebound, guarding, or rigidity noted. No distention Musculoskeletal: Patient has full range of motion of all of the extremities, no motor, sensory, or focal neurological deficits Neurological: A&O x4, normal speech Psychiatric: Cooperative Related Data Home Medications ?Medication ?Instructions ?Recorded ?Confirmed cetirizine 10 mg tablet (24Hour 5 mg PO DAILY 05/26/24 09/23/24 Allergy) gabapentin 300 mg capsule 300 mg PO BID 05/26/24 09/23/24 ondansetron HCl 8 mg tablet 8 mg PO Q8H 05/26/24 09/23/24 pantoprazole 20 mg tablet,delayed 20 mg PO DAILY 05/26/24 09/24/24 release acyclovir 400 mg tablet 400 mg PO Q12H 09/24/24 09/24/24 levofloxacin 500 mg tablet 500 mg PO QAM 09/24/24 09/24/24 ondansetron 8 mg disintegrating 8 mg PO Q8H PRN nausea and vomiting 09/24/24 09/24/24 tablet propranolol 20 mg/5 mL (4 mg/mL) 5 mg PO Q8H 09/24/24 09/24/24 oral solution Previous Rx's ?Medication ?Instructions ?Recorded enoxaparin 80 mg/0.8 mL 80 mg (0.8 mL) subcut Q12H 30 days 04/05/24 subcutaneous syringe (Lovenox) #48 mL Allergies Allergy/AdvReac Type Severity Reaction Status Date / Time No Known Drug Allergies Allergy Verified 04/04/24 20:19 Opioid HPI Opioid Management Most Recent Opioid Data: Last Office Visit 07/15/24 13:00 07/15/24 Last Pain Scale 0 09/24/24 09:49 09/24/24 Last ORT Total Score 1 04/05/24 02:14 04/05/24 Last ORT Risk Category Low Risk 04/05/24 02:14 04/05/24 [facility] Medical History (Updated 12/03/24 @ 19:08 by Santhosh Holm MD) Post hysterectomy menopause ?E89.40 - Asymptomatic postprocedural ovarian failure (ICD-10) ?Z90.710 - Acquired absence of both cervix and uterus (ICD-10) Fibroid ?D21.9 - Benign neoplasm of connective and other soft tissue, unspecified (ICD-10) Surgical History (Updated 04/05/24 @ 10:19 by Shaikh Janna MD) H/O: hysterectomy ?Z90.710 - Acquired absence of both cervix and uterus (ICD-10) Social History Highest level of school completed/degree received: 3rd grade Little interest or pleasure in doing things: not at all Feeling down, depressed, or hopeless: not at all Gender Identity: female Exam Constitutional Vital Signs, click to edit/add: Last Vital Signs Temp 99.1 F 12/03/24 15:14 Pulse 104 H 12/03/24 19:17 Resp 16 12/03/24 19:17 BP 148/87 H 12/03/24 19:17 Pulse Ox 97 12/03/24 19:17 O2 Del Method Room Air 12/03/24 19:17 Course Vital Signs Vital signs: Vital Signs Temperature 99.1 F 12/03/24 15:14 Pulse Rate 88 12/03/24 15:14 Respiratory Rate 18 12/03/24 15:14 Blood Pressure 143/90 H 12/03/24 15:14 Pulse Oximetry 96 12/03/24 15:14 Oxygen Delivery Method Room Air 12/03/24 15:14 Temperature 99.1 F 12/03/24 15:14 Pulse Rate 104 H 12/03/24 19:17 Respiratory Rate 16 12/03/24 19:17 Blood Pressure 148/87 H 12/03/24 19:17 Pulse Oximetry 97 12/03/24 19:17 Oxygen Delivery Method Room Air 12/03/24 19:17 Medical Decision Making MDM Narrative Medical decision making narrative: A copy of CTA report was given to the patient. We have a new radiology group, they were not able to compare her last CAT scan reports. I did print off a CAT scan report from September 23, 2024 when patient was last in [place]. Patient and believe that these numbers are extremely similar to what they have been in the last couple months and did not believe the mass is enlarging. Patient wants to go home, she feels good. She looks well. They will follow-up with their oncologist at [facility] next week. There is no new acute findings on the CAT scan. Patient is on blood thinners. We discussed patient's body of the report and all the impressions. Patient feels comfortable going home as does the . They do not think there is anything they were significant, but they wanted to be safe and came to the ER at the recommendation of her oncologist at [facility]. Patient and do not believe that we need to call the oncologist or wait for return phone call, they would rather go home and will follow-up with their oncology team next week. Patient is due for chemotherapy next week as well ECG Data Attestation: I personally reviewed and interpreted this ECG as follows: (EKG interpretation. Normal sinus rhythm at 85 beats a minute. Normal axis deviation. No acute ST elevation, no acute ectopy. QTc of 388. ) Discharge Plan Discharge Chief Complaint: Chest Pain Clinical Impression: Chest pressure Patient Disposition: Home, Self-Care Time of Disposition Decision: 19:07 Condition: Good Mode of Transportation: Private Vehicle Prescriptions / Home Meds: No Action enoxaparin [Lovenox] 80 mg/0.8 mL syringe 80 mg subcut Q12H 30 Days Qty: 48 0RF acyclovir 400 mg tablet 400 mg PO Q12H levofloxacin 500 mg tablet 500 mg PO QAM Rx Instructions: 6am ondansetron 8 mg tablet,disintegrating 8 mg PO Q8H PRN (Reason: nausea and vomiting) propranolol 20 mg/5 mL (4 mg/mL) solution 5 mg PO Q8H Rx Instructions: via ng tube cetirizine [24Hour Allergy] 10 mg tablet 5 mg PO DAILY gabapentin 300 mg capsule 300 mg PO BID ondansetron HCl 8 mg tablet 8 mg PO Q8H Rx Instructions: 1st dose 1-2 hr before radiation pantoprazole 20 mg tablet,delayed release (DR/EC) 20 mg PO DAILY Print Language: Albanian Instructions: Chest Pain (ED) Additional Instructions: A copy of your CAT scan report from today and September 23, 2024 has been given to you. If you are having any more chest pressure, shortness of breath, or any more significant concerns, return back to the ER for reevaluation. Follow-up with your oncology team at the [facility] for comparison of the size of the mass today and any other recommendations. Call the oncology team on Friday for recommendations on your chemotherapy next week as well. Referrals: MANISHA PITTS [Primary Care Provider] - 1 week Discharge Date/Time: 12/03/24 19:19
--- NOTE | 2024-12-03 17:30 | ECG_ITS ---
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
[2024-12-03 19:17] VITALS: BP 148/87; PULSE 104; O2SAT 97
== END 2024-12-03 19:19 | disposition home or self-care (01) ==
PROVIDERS: Emergency Provider Emergency Medicine; PCP Family Medicine
DX: R07.89 Other chest pain (principal); Z79.60 Long term (current) use of unspecified immunomodulators and immunosuppressants; R22.2 Localized swelling, mass and lump, trunk; Z90.710 Acquired absence of both cervix and uterus
CPT/HCPCS: 71275; 93005; 99284; Q9967

== ENCOUNTER 2024-12-08 07:35 | Outpatient (RCR) | payer OTHER, SELFPAY ==
[2024-12-07 11:00] LABS: Hematocrit 37.5 % (36.0-48.0); Hemoglobin 11.7 g/dL (12.0-16.0); Mean Corpuscular HGB Conc 31.2 g/dL (29.9-35.2); Mean Corpuscular Hemoglobin 25.7 pg (26.7-34.0); Mean Corpuscular Volume 82.4 fL (81.0-99.0); Mean Platelet Volume 11.1 fL (9.5-13.5); Platelet Count 267 10^3/uL (150-450); Red Blood Count 4.55 10^6/uL (4.20-5.40); White Blood Count 4.5 10^3/uL (4.0-11.0)
[2024-12-07 11:13] LABS: Alanine Aminotransferase 85 U/L (14-59); Albumin Globulin Ratio 0.9; Albumin Level 3.1 g/dL (3.4-5.0); Alkaline Phosphatase 217 U/L (46-116); Anion Gap 8.4; Aspartate Amino Transferase 44 U/L (15-37); BUN Creatinine Ratio 29.4; Bilirubin Total 0.7 mg/dL (0.2-1.0); Calcium 9.1 mg/dL (8.5-10.1); Carbon Dioxide 30.8 mmol/L (21.0-32.0); Chloride 105 mmol/L (98-107); Estimated GFR (African America >60 (>=60 mL/min/1.73m^2); Estimated GFR (Non-African Ame >60 (>=60 mL/min/1.73m^2); Globulin 3.5 g/dL; Glucose 105 mg/dL (74-106); Lactate Dehydrogenase 213 U/L (81-234); Potassium 4.2 mmol/L (3.5-5.1); Sodium 140 mmol/L (136-145); Total Protein 6.6 g/dL (6.4-8.2); Uric Acid 2.7 mg/dL (2.6-6.0)
[2024-12-07 11:27] LABS: Lymphocytes Absolute Manual 1.26 10^3/uL (1.20-3.80); Monocytes Absolute Manual 0.36 10^3/uL (0.30-0.80); Segmented Neut Absolute Manual 2.88 10^3/uL (1.4-6.5)
[2024-12-08 09:32] VITALS: BP 130/79; PULSE 89; TEMP 36.6; O2SAT 92
[2024-12-08] MEDS: 0.9 % SODIUM CHLORIDE 250 ML 10 ML IV (09:38)
[2024-12-08] MEDS: SODIUM CHLORIDE 0.9% IV (09:39)
[2024-12-08] MEDS: VINCRISTINE SULFATE IV (09:39)
--- NOTE | 2024-12-08 10:02 | PC.NURSE ---
rt picc dressing removed site clear. 4 cm external catheter length, new stat lock and CHG dressing applied.
== END 2024-12-29 13:09 | disposition home or self-care (01) ==
LOC: HEMC 07:35
PROVIDERS: PCP Family Medicine; Visit Provider Internal Medicine Hematology & Oncology
DX: Z51.11 Encounter for antineoplastic chemotherapy (principal); C91.00 Acute lymphoblastic leukemia not having achieved remission; C38.1 Malignant neoplasm of anterior mediastinum; I82.B11 Acute embolism and thrombosis of right subclavian vein; D50.9 Iron deficiency anemia, unspecified; K90.9 Intestinal malabsorption, unspecified; D64.9 Anemia, unspecified; Z90.710 Acquired absence of both cervix and uterus; Z90.721 Acquired absence of ovaries, unilateral; Z79.01 Long term (current) use of anticoagulants; R13.10 Dysphagia, unspecified; R79.89 Other specified abnormal findings of blood chemistry
CPT/HCPCS: 36592; 80053; 83615; 84550; 85007; 85027; 96409; G0463; J9370

== ENCOUNTER 2024-12-29 07:28 | Outpatient (RCR) | payer OTHER, SELFPAY ==
--- NOTE | 2024-12-07 11:45 | PC.NURSE ---
1030: Pt. completed visit with Dr. Erickson. Labs drawn easily from right upper arm PICC line as ordered. Pt. tolerated without c/o. Site without s&s of infection or infiltration. Pt. d/c'd amb. to home with .
[2024-12-15 09:30] VITALS: BP 130/80; PULSE 82; TEMP 36.7; O2SAT 82
[2024-12-15 09:56] LABS: Basophils Percent Auto 0.4 % (0.2-2.0); Eosinophils Absolute Auto 0.1 10^3/uL (0.0-0.7); Eosinophils Percent Auto 1.6 % (0.9-7.0); Hematocrit 37.3 % (36.0-48.0); Hemoglobin 11.8 g/dL (12.0-16.0); Immature Granulocytes Abs Auto 0.09 10^3/uL (0.00-0.03); Immature Granulocytes Pct Auto 1.7 % (0.0-0.5); Lymphocytes Absolute Auto 0.9 10^3/uL (1.2-3.8); Lymphocytes Percent Auto 17.3 % (20.5-60.0); Mean Corpuscular HGB Conc 31.6 g/dL (29.9-35.2); Mean Corpuscular Hemoglobin 25.9 pg (26.7-34.0); Mean Platelet Volume 10.3 fL (9.5-13.5); Monocytes Absolute Auto 0.8 10^3/uL (0.3-0.8); Monocytes Percent Auto 15.9 % (1.7-12.0); Neutrophils Absolute Auto 3.3 10^3/uL (1.4-6.5); Neutrophils Percent Auto 63.1 % (43.0-75.0); Platelet Count 387 10^3/uL (150-450); Red Blood Count 4.55 10^6/uL (4.20-5.40); Red Cell Distribution Width 21.5 % (11.0-15.0); White Blood Count 5.2 10^3/uL (4.0-11.0)
--- NOTE | 2024-12-15 09:58 | PC.NURSE ---
rt upper arm picc intact. site clear. labs drawn, excellent blood return, both port flushed with NS. new clave and CHG caps applied. old dressing removed. site care performed. site clean dry no reddness, drainage, chloraprep used at site, skinm prep applied new stat lock and CHG dressing applied. approx 5 cm of exposed catheter noted. tolerated well
[2024-12-15 10:11] LABS: Alanine Aminotransferase 81 U/L (14-59); Albumin Level 3.2 g/dL (3.4-5.0); Alkaline Phosphatase 154 U/L (46-116); Anion Gap 9.8; Aspartate Amino Transferase 46 U/L (15-37); BUN Creatinine Ratio 42.9; Calcium 9.1 mg/dL (8.5-10.1); Carbon Dioxide 31.7 mmol/L (21.0-32.0); Chloride 106 mmol/L (98-107); Estimated GFR (African America >60 (>=60 mL/min/1.73m^2); Estimated GFR (Non-African Ame >60 (>=60 mL/min/1.73m^2); Globulin 3.1 g/dL; Glucose 80 mg/dL (74-106); Potassium 3.5 mmol/L (3.5-5.1); Sodium 144 mmol/L (136-145); Total Protein 6.3 g/dL (6.4-8.2)
[2024-12-22 09:30] VITALS: BP 109/65; PULSE 97; TEMP 37.1; O2SAT 93
[2024-12-22 09:57] LABS: Hematocrit 38.1 % (36.0-48.0); Hemoglobin 11.7 g/dL (12.0-16.0); Mean Corpuscular HGB Conc 30.7 g/dL (29.9-35.2); Mean Corpuscular Hemoglobin 25.9 pg (26.7-34.0); Mean Corpuscular Volume 84.5 fL (81.0-99.0); Platelet Count 283 10^3/uL (150-450); Red Blood Count 4.51 10^6/uL (4.20-5.40); White Blood Count 6.4 10^3/uL (4.0-11.0)
[2024-12-22 10:14] LABS: Alanine Aminotransferase 89 U/L (14-59); Albumin Globulin Ratio 0.8; Albumin Level 3.2 g/dL (3.4-5.0); Alkaline Phosphatase 266 U/L (46-116); Anion Gap 12.6; Aspartate Amino Transferase 58 U/L (15-37); BUN Creatinine Ratio 22.2; Bilirubin Total 0.8 mg/dL (0.2-1.0); Calcium 9.3 mg/dL (8.5-10.1); Carbon Dioxide 28.5 mmol/L (21.0-32.0); Chloride 105 mmol/L (98-107); Estimated GFR (African America >60 (>=60 mL/min/1.73m^2); Estimated GFR (Non-African Ame >60 (>=60 mL/min/1.73m^2); Globulin 3.9 g/dL; Glucose 108 mg/dL (74-106); Potassium 4.1 mmol/L (3.5-5.1); Sodium 142 mmol/L (136-145); Total Protein 7.1 g/dL (6.4-8.2)
[2024-12-22 10:38] LABS: Band Neutrophils Absolute 0.1 10^3/uL (0.0-0.3); Lymphocytes Absolute Manual 0.83 10^3/uL (1.20-3.80); Monocytes Absolute Manual 0.19 10^3/uL (0.30-0.80); Segmented Neut Absolute Manual 5.24 10^3/uL (1.4-6.5)
[2024-12-22 10:39] LABS: Anisocytosis 2+
[2024-12-29 09:25] VITALS: BP 133/76; PULSE 85; TEMP 36.9; O2SAT 92
[2024-12-29 10:02] LABS: Hematocrit 38.4 % (36.0-48.0); Hemoglobin 11.7 g/dL (12.0-16.0); Mean Corpuscular HGB Conc 30.5 g/dL (29.9-35.2); Mean Corpuscular Hemoglobin 26.5 pg (26.7-34.0); Mean Corpuscular Volume 86.9 fL (81.0-99.0); Mean Platelet Volume 10.3 fL (9.5-13.5); Platelet Count 259 10^3/uL (150-450); Red Blood Count 4.42 10^6/uL (4.20-5.40); Red Cell Distribution Width 19.3 % (11.0-15.0); White Blood Count 5.3 10^3/uL (4.0-11.0)
[2024-12-29 10:16] LABS: Alanine Aminotransferase 86 U/L (14-59); Albumin Globulin Ratio 0.8; Albumin Level 3.1 g/dL (3.4-5.0); Alkaline Phosphatase 271 U/L (46-116); Anion Gap 7.1; Aspartate Amino Transferase 55 U/L (15-37); BUN Creatinine Ratio 26.3; Calcium 9.1 mg/dL (8.5-10.1); Chloride 106 mmol/L (98-107); Estimated GFR (African America >60 (>=60 mL/min/1.73m^2); Estimated GFR (Non-African Ame >60 (>=60 mL/min/1.73m^2); Globulin 4.1 g/dL; Glucose 99 mg/dL (74-106); Potassium 4.1 mmol/L (3.5-5.1); Sodium 140 mmol/L (136-145); Total Protein 7.2 g/dL (6.4-8.2)
[2024-12-29 10:24] LABS: Eosinophils Absolute Manual 0.21 10^3/uL (0.00-0.70); Lymphocytes Absolute Manual 0.47 10^3/uL (1.20-3.80); Monocytes Absolute Manual 0.15 10^3/uL (0.30-0.80); Segmented Neut Absolute Manual 4.45 10^3/uL (1.4-6.5)
[2024-12-29 10:25] LABS: Anisocytosis 1+; Ovalocytes 1+
[2024-12-29 10:26] LABS: Polychromasia 1+
== END 2024-12-29 13:09 | disposition home or self-care (01) ==
LOC: INF 07:28
PROVIDERS: PCP Family Medicine
DX: C83.50 Lymphoblastic (diffuse) lymphoma, unspecified site (principal)
CPT/HCPCS: 36592; 80053; 85007; 85025; 85027

== ENCOUNTER 2025-01-03 12:22 | Observation (INO) | payer OTHER, SELFPAY ==
[2025-01-03] VITALS (64 sets, daily range): BP systolic 108–148; BP diastolic 74–91; PULSE 106–122; TEMP 36.6–37.1; O2SAT 88–97; BMI 31.2
--- NOTE | 2025-01-03 12:50 | ECG_ITS ---
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 Measurements Intervals [place] Rate: 106 P: 61 CT: 152 QRS: 12 QRSD: 68 T: 65 QT: 318 QTc: 380 Interpretive Statements 1120 Sinus tachycardia 3114 Cannot rule out anterior myocardial infarction, age undetermined 9150 abnormal ECG Compared to ECG 12/03/2024 16:52:57 No significant change Electronically Signed On 01-03-2025 20:28:35 EDT by JES MUNOZ M.D.
--- NOTE | 2025-01-03 12:51 | ED.GENADUL1 ---
HPI HPI - General Adult General Chief complaint: Chest Pain Stated complaint: SENT BY [facility] FOR CT EKG Time Seen by Provider: 01/03/25 12:27 Source: patient Mode of arrival: walk-in Limitations: no limitations History of Present Illness HPI narrative: 39-year-old female presents to the emergency department for chest pain and shortness of breath for 3 days. She has a history of lymphoma and is being cared for at the [facility]. She contacted them and they suggested she come in here to get checked. She has not had a fever or cough and has no history of pulmonary embolism. She reports however that she has clots in her neck and her arm. She is on Lovenox. Related Data Home Medications ?Medication ?Instructions ?Recorded ?Confirmed cetirizine 10 mg tablet (24Hour 5 mg PO DAILY 05/26/24 09/23/24 Allergy) gabapentin 300 mg capsule 300 mg PO BID 05/26/24 09/23/24 ondansetron HCl 8 mg tablet 8 mg PO Q8H 05/26/24 09/23/24 pantoprazole 20 mg tablet,delayed 20 mg PO DAILY 05/26/24 09/24/24 release acyclovir 400 mg tablet 400 mg PO Q12H 09/24/24 09/24/24 levofloxacin 500 mg tablet 500 mg PO QAM 09/24/24 09/24/24 ondansetron 8 mg disintegrating 8 mg PO Q8H PRN nausea and vomiting 09/24/24 09/24/24 tablet propranolol 20 mg/5 mL (4 mg/mL) 5 mg PO Q8H 09/24/24 09/24/24 oral solution Previous Rx's ?Medication ?Instructions ?Recorded enoxaparin 80 mg/0.8 mL 80 mg (0.8 mL) subcut Q12H 30 days 04/05/24 subcutaneous syringe (Lovenox) #48 mL Allergies Allergy/AdvReac Type Severity Reaction Status Date / Time No Known Drug Allergies Allergy Verified 04/04/24 20:19 Opioid HPI Opioid Management Most Recent Opioid Data: Last Office Visit 07/15/24 13:00 07/15/24 Last Pain Scale 0 09/24/24 09:49 09/24/24 Last ORT Total Score 1 04/05/24 02:14 04/05/24 Last ORT Risk Category Low Risk 04/05/24 02:14 04/05/24 Review of Systems ROS Narrative A ten point review of systems is negative except as noted above. PFSH PFSH Medical History (Updated 01/03/25 @ 16:44 by Dionicio Albright MD) Post hysterectomy menopause ?E89.40 - Asymptomatic postprocedural ovarian failure (ICD-10) ?Z90.710 - Acquired absence of both cervix and uterus (ICD-10) Fibroid ?D21.9 - Benign neoplasm of connective and other soft tissue, unspecified (ICD-10) Surgical History (Updated 04/05/24 @ 10:19 by Shaikh Janna MD) H/O: hysterectomy ?Z90.710 - Acquired absence of both cervix and uterus (ICD-10) Social History Highest level of school completed/degree received: 3rd grade Little interest or pleasure in doing things: not at all Feeling down, depressed, or hopeless: not at all Gender Identity: female Exam Narrative Exam Narrative: Nurses note and vital signs reviewed and patient is not hypoxic. General: The patient appears in no apparent distress. Patient is resting comfortably on cart. Skin: Warm, dry, no pallor noted. There is no rash noted. PICC line present in her right arm Head: Normocephalic, atraumatic Eye: Normal conjunctiva, no drainage Ears, Nose, Mouth, and Throat: oral mucosa is moist. Feeding tube in place through her nose. Cardiovascular: Regular Rate and Rhythm Respiratory: Patient is in no distress, no accessory muscle use, lungs are clear to auscultation, no wheezing, rales or rhonchi. Good air movement present. Back: non-tender GI: Soft and nontender Musculoskeletal: The patient has no evidence of calf tenderness, no pitting edema, symmetrical pulses noted bilaterally Neurological: A&O, normal speech Psychiatric: Cooperative Constitutional Vital Signs, click to edit/add: Last Vital Signs Temp 98.8 F 01/03/25 12:31 Pulse 117 H 01/03/25 14:50 Resp 23 H 01/03/25 14:50 BP 139/81 01/03/25 14:30 Pulse Ox 89 L 01/03/25 14:50 O2 Del Method Room Air 01/03/25 12:31 Course Vital Signs Vital signs: Vital Signs Temperature 98.8 F 01/03/25 12:31 Pulse Rate 118 H 01/03/25 12:31 Respiratory Rate 18 01/03/25 12:31 Blood Pressure 122/79 01/03/25 12:31 Pulse Oximetry 90 L 01/03/25 12:31 Oxygen Delivery Method Room Air 01/03/25 12:31 Temperature 98.8 F 01/03/25 12:31 Pulse Rate 117 H 01/03/25 14:50 Respiratory Rate 23 H 01/03/25 14:50 Blood Pressure 139/81 01/03/25 14:30 Pulse Oximetry 89 L 01/03/25 14:50 Oxygen Delivery Method Room Air 01/03/25 12:31 Medical Decision Making MDM Narrative Medical decision making narrative: Her workup does not show pulmonary embolism but shows a pericardial effusion. Her O2 sats are 89 to 90% on room air and she is placed on oxygen. I have discussed the case with Dr. Swift, her oncologist at the [facility], who accepts the patient. She is stable and agreeable for transfer for further evaluation and treatment. Treatment diagnosis and disposition were discussed with the patient. The bilateral infiltrates were discussed with the registered nursing professor as well who feels that they are more likely extension of her disease. Differential Diagnosis Differential Diagnosis: Pulmonary embolism, pneumonia, pericardial effusion Medical Records Medical records reviewed: Yes I reviewed the patient's medical records Lab Data Lab results reviewed: Yes I reviewed the patient's lab results Labs: Lab Results 01/03/25 Range/Units 13:01 WBC 7.3 (4.0-11.0) 10^3/uL RBC 4.58 (4.20-5.40) 10^6/uL Hgb 12.1 (12.0-16.0) g/dL Hct 38.2 (36.0-48.0) % MCV 83.4 (81.0-99.0) fL MCH 26.4 L (26.7-34.0) pg MCHC 31.7 (29.9-35.2) g/dL RDW 19.7 H (11.0-15.0) % Plt Count 294 (150-450) 10^3/uL MPV 10.5 (9.5-13.5) fL Neut % (Auto) 81.5 H (43.0-75.0) % Lymph % (Auto) 9.4 L (20.5-60.0) % [place] % (Auto) 7.9 (1.7-12.0) % Eos % (Auto) 0.5 L (0.9-7.0) % Baso % (Auto) 0.3 (0.2-2.0) % Neut # (Auto) 6.0 (1.4-6.5) 10^3/uL Lymph # (Auto) 0.7 L (1.2-3.8) 10^3/uL [place] # (Auto) 0.6 (0.3-0.8) 10^3/uL Eos # (Auto) 0.0 (0.0-0.7) 10^3/uL Baso # (Auto) 0.0 (0.0-0.1) 10^3/uL Abs Immat Gran (auto) 0.03 (0.00-0.03) 10^3/uL Imm/Tot Granulo (auto) 0.4 (0.0-0.5) % Sodium 137 (136-145) mmol/L Potassium 4.3 (3.5-5.1) mmol/L Chloride 102 (98-107) mmol/L Carbon Dioxide 26.7 (21.0-32.0) mmol/L Anion Gap 12.6 BUN 16.0 (7.0-18.0) mg/dL Creatinine 0.57 (0.55-1.02) mg/dL Est GFR ( Amer) >60 (>=60 mL/min/1.73m^2) Est GFR (Non-Af Amer) >60 (>=60 mL/min/1.73m^2) BUN/Creatinine Ratio 28.1 Glucose 122 H (74-106) mg/dL Calcium 9.2 (8.5-10.1) mg/dL Troponin I High Sens 6.9 (4.0-51.3) pg/mL Imaging Data Chest x-ray, CTA chest: Radiologist's impression: CTA chest: No pulmonary embolism, moderate-sized pleural cardial effusion, bilateral infiltrate ECG Data Attestation: I personally reviewed and interpreted this ECG as follows: (EKG on my interpretation shows sinus rhythm with a rate of 106 and no acute change) Critical Care Time Critical Care Time Critical Care Time: Yes Total Critical Care Time: 40 Attestation: Due to the high probability of sudden and clinically significant deterioration in the patient's condition he/she required the highest level of my preparedness to intervene urgently I provided critical care time including documentation time, medication orders and management, reevaluation, vital sign assessment, ordering and reviewing of lab tests, ordering and reviewing of x-ray studies, and admission orders. Aggregate critical care time is 40 minutes including only time during which I was engaged in work directly related to his/her care and did not include time spent treating other patients simultaneously. Discharge Plan Discharge Chief Complaint: Chest Pain Clinical Impression: Pericardial effusion Patient Disposition: [facility] Time of Disposition Decision: 16:40 Discharge Location: [facility] Condition: Fair Mode of Transportation: EMS
[2025-01-03 13:06] LABS: Basophils Percent Auto 0.3 % (0.2-2.0); Eosinophils Percent Auto 0.5 % (0.9-7.0); Hematocrit 38.2 % (36.0-48.0); Hemoglobin 12.1 g/dL (12.0-16.0); Immature Granulocytes Abs Auto 0.03 10^3/uL (0.00-0.03); Immature Granulocytes Pct Auto 0.4 % (0.0-0.5); Lymphocytes Absolute Auto 0.7 10^3/uL (1.2-3.8); Lymphocytes Percent Auto 9.4 % (20.5-60.0); Mean Corpuscular HGB Conc 31.7 g/dL (29.9-35.2); Mean Corpuscular Hemoglobin 26.4 pg (26.7-34.0); Mean Corpuscular Volume 83.4 fL (81.0-99.0); Mean Platelet Volume 10.5 fL (9.5-13.5); Monocytes Absolute Auto 0.6 10^3/uL (0.3-0.8); Monocytes Percent Auto 7.9 % (1.7-12.0); Neutrophils Percent Auto 81.5 % (43.0-75.0); Platelet Count 294 10^3/uL (150-450); Red Blood Count 4.58 10^6/uL (4.20-5.40); Red Cell Distribution Width 19.7 % (11.0-15.0); White Blood Count 7.3 10^3/uL (4.0-11.0)
[2025-01-03 13:23] LABS: Anion Gap 12.6; BUN Creatinine Ratio 28.1; Calcium 9.2 mg/dL (8.5-10.1); Carbon Dioxide 26.7 mmol/L (21.0-32.0); Chloride 102 mmol/L (98-107); Estimated GFR (African America >60 (>=60 mL/min/1.73m^2); Estimated GFR (Non-African Ame >60 (>=60 mL/min/1.73m^2); Glucose 122 mg/dL (74-106); Potassium 4.3 mmol/L (3.5-5.1); Sodium 137 mmol/L (136-145); Troponin I High Sensitivity 6.9 pg/mL (4.0-51.3)
[2025-01-03] MEDS: ACETAMINOPHEN 500 MG TABLET PO (16:02)
--- NOTE | 2025-01-03 20:58 | ED.GENADUL1 ---
HPI HPI - General Adult General Chief complaint: Chest Pain Stated complaint: SENT BY [facility] FOR CT EKG Time Seen by Provider: 01/03/25 12:27 Source: patient Mode of arrival: walk-in Limitations: no limitations History of Present Illness HPI narrative: This 39-year-old female who was recently diagnosed with lymphoblastic lymphoma and is being treated at [facility] is awaiting transfer to the [facility] for bilateral pulmonary infiltrates which are thought to be a progression of her disease as well as a moderate pleural effusion. Patient is excepted at [facility] but a bed is not available tonight. She was seen and evaluated. She has an NG tube where she is receiving tube feeds due to what she states is a hole in her esophagus after being intubated. She has a right sided PICC line. She states that she has a prescription for oxycodone 10 mg but her did not bring them. She complains of generalized discomfort due to being in the bed for a prolonged period of time but denies any chest pain or significant shortness of breath at this time. She is on Levaquin and acyclovir at this time. She is hemodynamically stable. I will discuss with the hospitalist admitting her for observation as a border until a bed becomes available at the [facility]. Hospitalist is in agreement with this plan. She was given a dose of morphine in the emergency department for her discomfort. She is otherwise hemodynamically stable. Related Data Home Medications ?Medication ?Instructions ?Recorded ?Confirmed cetirizine 10 mg tablet (24Hour 5 mg PO DAILY 05/26/24 09/23/24 Allergy) gabapentin 300 mg capsule 300 mg PO BID 05/26/24 09/23/24 ondansetron HCl 8 mg tablet 8 mg PO Q8H 05/26/24 09/23/24 pantoprazole 20 mg tablet,delayed 20 mg PO DAILY 05/26/24 09/24/24 release acyclovir 400 mg tablet 400 mg PO Q12H 09/24/24 09/24/24 levofloxacin 500 mg tablet 500 mg PO QAM 09/24/24 09/24/24 ondansetron 8 mg disintegrating 8 mg PO Q8H PRN nausea and vomiting 09/24/24 09/24/24 tablet propranolol 20 mg/5 mL (4 mg/mL) 5 mg PO Q8H 09/24/24 09/24/24 oral solution Previous Rx's ?Medication ?Instructions ?Recorded enoxaparin 80 mg/0.8 mL 80 mg (0.8 mL) subcut Q12H 30 days 04/05/24 subcutaneous syringe (Lovenox) #48 mL Allergies Allergy/AdvReac Type Severity Reaction Status Date / Time No Known Drug Allergies Allergy Verified 04/04/24 20:19 Opioid HPI Opioid Management Most Recent Opioid Data: Last Office Visit 07/15/24 13:00 07/15/24 Last Pain Scale 8 01/03/25 21:07 01/03/25 Last ORT Total Score 1 04/05/24 02:14 04/05/24 Last ORT Risk Category Low Risk 04/05/24 02:14 04/05/24 PFSH PFSH Medical History (Updated 01/03/25 @ 21:20 by Myriam Taylor MD) Post hysterectomy menopause ?E89.40 - Asymptomatic postprocedural ovarian failure (ICD-10) ?Z90.710 - Acquired absence of both cervix and uterus (ICD-10) Fibroid ?D21.9 - Benign neoplasm of connective and other soft tissue, unspecified (ICD-10) Surgical History (Updated 04/05/24 @ 10:19 by Shaikh Janna MD) H/O: hysterectomy ?Z90.710 - Acquired absence of both cervix and uterus (ICD-10) Social History Highest level of school completed/degree received: 3rd grade Little interest or pleasure in doing things: not at all Feeling down, depressed, or hopeless: not at all Gender Identity: female Exam Constitutional Vital Signs, click to edit/add: Last Vital Signs Temp 98.8 F 01/03/25 12:31 Pulse 112 H 01/03/25 18:30 Resp 18 01/03/25 18:30 BP 131/83 01/03/25 18:30 Pulse Ox 94 L 01/03/25 18:30 O2 Del Method Nasal Cannula 01/03/25 16:46 O2 Flow Rate 2 01/03/25 16:46 Course Vital Signs Vital signs: Vital Signs Temperature 98.8 F 01/03/25 12:31 Pulse Rate 118 H 01/03/25 12:31 Respiratory Rate 18 01/03/25 12:31 Blood Pressure 122/79 01/03/25 12:31 Pulse Oximetry 90 L 01/03/25 12:31 Oxygen Delivery Method Room Air 01/03/25 12:31 Temperature 98.8 F 01/03/25 12:31 Pulse Rate 112 H 01/03/25 18:30 Respiratory Rate 18 01/03/25 18:30 Blood Pressure 131/83 01/03/25 18:30 Pulse Oximetry 94 L 01/03/25 18:30 Oxygen Delivery Method Nasal Cannula 01/03/25 16:46 Oxygen Delivery Flow Rate 2 01/03/25 16:46 Medical Decision Making Lab Data Labs: Lab Results 01/03/25 Range/Units 13:01 WBC 7.3 (4.0-11.0) 10^3/uL RBC 4.58 (4.20-5.40) 10^6/uL Hgb 12.1 (12.0-16.0) g/dL Hct 38.2 (36.0-48.0) % MCV 83.4 (81.0-99.0) fL MCH 26.4 L (26.7-34.0) pg MCHC 31.7 (29.9-35.2) g/dL RDW 19.7 H (11.0-15.0) % Plt Count 294 (150-450) 10^3/uL MPV 10.5 (9.5-13.5) fL Neut % (Auto) 81.5 H (43.0-75.0) % Lymph % (Auto) 9.4 L (20.5-60.0) % [place] % (Auto) 7.9 (1.7-12.0) % Eos % (Auto) 0.5 L (0.9-7.0) % Baso % (Auto) 0.3 (0.2-2.0) % Neut # (Auto) 6.0 (1.4-6.5) 10^3/uL Lymph # (Auto) 0.7 L (1.2-3.8) 10^3/uL [place] # (Auto) 0.6 (0.3-0.8) 10^3/uL Eos # (Auto) 0.0 (0.0-0.7) 10^3/uL Baso # (Auto) 0.0 (0.0-0.1) 10^3/uL Abs Immat Gran (auto) 0.03 (0.00-0.03) 10^3/uL Imm/Tot Granulo (auto) 0.4 (0.0-0.5) % Sodium 137 (136-145) mmol/L Potassium 4.3 (3.5-5.1) mmol/L Chloride 102 (98-107) mmol/L Carbon Dioxide 26.7 (21.0-32.0) mmol/L Anion Gap 12.6 BUN 16.0 (7.0-18.0) mg/dL Creatinine 0.57 (0.55-1.02) mg/dL Est GFR ( Amer) >60 (>=60 mL/min/1.73m^2) Est GFR (Non-Af Amer) >60 (>=60 mL/min/1.73m^2) BUN/Creatinine Ratio 28.1 Glucose 122 H (74-106) mg/dL Calcium 9.2 (8.5-10.1) mg/dL Troponin I High Sens 6.9 (4.0-51.3) pg/mL Discharge Plan Discharge Chief Complaint: Chest Pain Clinical Impression: Pericardial effusion, Lung mass Patient Disposition: Admitted as Observation Time of Disposition Decision: 16:40 Discharge Location: [facility] Condition: Fair Mode of Transportation: EMS
[2025-01-03] MEDS: MORPHINE SULFATE 4 MG/ML VIAL IV (21:07)
[2025-01-03] MEDS: ONDANSETRON PF 4 MG/2 ML VIAL IV (21:07)
--- OUTSIDE RECORDS SUMMARY | 2025-01-03 22:13 | XMS_ITS | CCD ---
Author Organization [facility] Care Team Providers Care Staff Psychiatrist Name Role Phone ONESIMO MILLS Attending Unavailable MANISHA MCKNIGHT Referring Unavailable MANISHA MCKNIGHT Mei Primary Care Unavailable MANISHA MCKNIGHT Mei Referring Unavailable MANISHA MCKNIGHT Mei Primary Care Unavailable MANISHA MCKNIGHT Primary Care Unavailable SHAHANA ROMERO Attending Unavailable MANISHA MCKNIGHT Primary Care Unavailable Manisha Mcknight MD Primary Care Provider Ta ANGELES, Vignesh Unavailable Unavailable OMBALLI, BRAULIO Referring Unavailable OMBALLI, BRAULIO Referring Unavailable HANS ROY Referring Unavailable GIA BEAN Referring Unavailable HEIDIALDA Serrano Attending Unavailable RENETTA CARD Admitting Unavailable NUÑEZ, BASMAH Referring Unavailable OMBALLI, MOHAMED Referring Unavailable HORANI, GENE Referring Unavailable OMBALLI, JOSEPHAMED Referring Unavailable OMBALLI, JOSEPHAMED Referring Unavailable OMBALLI, JOSEPHAMED Referring Unavailable FRED CONTRERAS Attending Unavailable RICO, BRAULIO Referring Unavailable Manisha Mcknight MD Primary Care Provider [phone] MANISHA MCKNIGHT Attending Unavailable GISSELLE, MANISHA F Referring Unavailable GISSELLE, MANISHA Mei Referring Unavailable MANISHA MCKNIGHT Mei Attending Unavailable MANISHA MCKNIGHT Mei Attending Unavailable MANISHA MCKNIGHT Mei Attending Unavailable Estrellita ANGELES, Delaney Unavailable Syd Horne Attending Unavailable Juan Carlos MARIE, [facility] Primary Care Unavailable Manisha Mcknight MD Primary Care Provider MANISHA MCKNIGHT Primary Care Unavailable JUAN CARLOS, SUDIPTO Referring Unavailable JUAN CARLOS, SUDIPTO Attending Unavailable KOBE MEDELLIN Referring Unavailable MANISHA MCKNIGHT Primary Care Unavailable MANISHA MCKNIGHT Primary Care Unavailable SELF Referring Unavailable JUAN CARLOS, SUDIPTO Attending Unavailable PENDYALA, KOBE Attending Unavailable MANISHA MCKINGHT Primary Care Unavailable SELF Referring Unavailable LALY BUCHANAN Attending Unavailable MANISHA MCKNIGHT Primary Care Unavailable GISSELLEMANISHA ELLIS Primary Care Unavailable JUAN CARLOS, SUDIPTO Attending Unavailable JUAN CARLOS, SUDIPTO Referring Unavailable BERTIN LAMA Attending Unavailabl e BERTIN LAMA Admitting Unavailabl e MANISHA MCKNIGHT Primary Care Unavailable JUAN CARLOS, SUDIPTO Referring Unavailable GISSELLEMANISHA ELLIS Primary Care Unavailable RIVAS CHACON Referring Unavailable MANISHA MCKNIGHT Primary Care Unavailable KETTANINEEL Referring Unavailable MANISHA MCKNIGHT Primary Care Unavailable GISSELLEMANISHA ELLIS Primary Care Unavailable PENDYALA, KOBE Referring Unavailable MANISHA MCKNIGHT Primary Care Unavailable PAU ANAYA Attending Unavailable MANISHA MCKNIGHT Primary Care Unavailable JUAN CARLOS, SUDIPTO Referring Unavailable AMIE TRAN Attending Unavailable AMIE TRAN Admitting Unavailable MANISHA MCKNIGHT Primary Care Unavailable SELF Referring Unavailable JUAN CARLOS, SUDIPTO Referring Unavailable MANISHA MCKNIGHT Primary Care Unavailable BERTIN LAMA Attending Unavailabl e BERTIN LAMA Admitting Unavailabl e MANISHA MCKNIGHT Primary Care Unavailable JUAN CARLOS, SUDIPTO Referring Unavailable BELINDA MACKEY Attending Unavailable BELINDA MACKEY Admitting Unavailable MANISHA MCKNIGHT Primary Care Unavailable HAROON RASMUSSEN M Referring Unavailable VIVIANA JOHNS E Attending Unavailable JUAN CARLOS, SUDIPTO Admitting Unavailable JUAN CARLOS, SUDIPTO Referring Unavailable MANISHA MCKNIGHT Primary Care Unavailable JUAN CARLOS, SUDIPTO Attending Unavailable JUAN CARLOS, SUDIPTO Referring Unavailable SHANA FERGUSON Attending Unavailabl e MANISHA MCKNIGHT Primary Care Unavailable PENDYALA, KOBE Attending Unavailable JUAN CARLOS, SUDIPTO Referring Unavailable MANISHA MCKNIGHT Primary Care Unavailable JUAN CARLOS, SUDIPTO Referring Unavailable MANISHA MCKNIGHT Primary Care Unavailable MANISHA MCKNIGHT Primary Care Unavailable JUAN CARLOS, SUDIPTO Referring Unavailable PENDYALA, KOBE Referring Unavailable MANISHA MCKNIGHT Primary Care Unavailable PENDYALA, KOBE Referring Unavailable MANISHA MCKNIGHT F Primary Care Unavailable ED, JACLYN HANDLEY Attending Unavailable PENDYALA, KOBE Referring Unavailable GISSELLE, MANISHA Hurley Primary Care Unavailable ED, JACLYN HANDLEY Attending Unavailable NEEL TALBERT Referring Unavailable GISSELLE, MANISHA Hurley Primary Care Unavailable HAMOUDAHAROON M Referring Unavailable BELINDA MACKEY Attending Unavailable MANISHA MCKNIGHT Primary Care Unavailable JUAN CARLOS, SUDIPTO Admitting Unavailable HAROON RASMUSSEN M Referring Unavailable GISSELLEMANISHA ELLIS Primary Care Unavailable VIVIANA JOHNS Attending Unavailable JUAN CARLOS, SUDIPTO Admitting Unavailable RIVAS CHACON Referring Unavailable GISSELLE, MANISHA Hurley Primary Care Unavailable GISSELLE, MANISHA Hurley Primary Care Unavailable JUAN CARLOS, SUDIPTO Attending Unavailable MANISHA MCKNIGHT Primary Care Unavailable GISSELLE, MANISHA Hurley Primary Care Unavailable MANISHA MCKNIGHT Primary Care Unavailable JUAN CARLOS, SUDIPTO Referring Unavailable MANISHA MCKNIGHT Primary Care Unavailable MAGUE FABIAN Attending Unavailable LALY BUCHANAN Attending Unavailable MANISHA MCKNIGHT Primary Care Unavailable GISSELLEMANISHA ELLIS Primary Care Unavailable JUAN CARLOS, SUDIPTO Referring Unavailable JUAN CARLOS, SUDIPTO Attending Unavailable GUILLE DIXON Attending Unavailable MANISHA MCKNIGHT Primary Care Unavailable MANISHA MCKNIGHT Primary Care Unavailable JUAN CARLOS, SUDIPTO Referring Unavailable JUAN CARLOS, SUDIPTO Attending Unavailable MANISHA MCKNIGHT Referring Unavailable LALY BUCHANAN Attending Unavailable MANISHA MCKNIGHT Primary Care Unavailable GISSELLEMANISHA ELLIS Primary Care Unavailable JUAN CARLOS, SUDIPTO Referring Unavailable JUAN CARLOS, SUDIPTO Referring Unavailable GISSELLEMANISHA ELLIS Primary Care Unavailable JUAN CARLOS, SUDIPTO Referring Unavailable MANISHA MCKNIGHT Primary Care Unavailable JUAN CARLOS, SUDIPTO Referring Unavailable MANISHA MCKNIGHT Primary Care Unavailable JUAN CARLOS, SUDIPTO Referring Unavailable MANISHA MCKNIGHT Primary Care Unavailable GISSELLEMANISHA ELLIS Primary Care Unavailable SHARMIN UREÑABERica Referring Unavailable OLGA UREÑA Attending Unavailable MANISHA MCKNIGHT Primary Care Unavailable GISSELLEMANISHA ELLIS Primary Care Unavailable SELF Referring Unavailable AMIE TRAN Attending Unavailable AMIE TRAN Admitting Unavailable GISSELLE, MANISHA Hurley Primary Care Unavailable LULI DOW Referring Unavailable GISSELLE, MANISHA Hurley Primary Care Unavailable GISSELLE, MANISHA Hurley Primary Care Unavailable CASEY RICH Referring Unavailable JUAN CARLOS, SUDIPTO Referring Unavailable BRAULIO JAMA Attending Unavailable GISSELLE, MANISHA Hurley Primary Care Unavailable GISSELLE, MANISHA Hurley Primary Care Unavailable JUAN CARLOS, SUDIPTO Referring Unavailable GISSELLE, MANISHA Hurley Primary Care Unavailable JUAN CARLOS, SUDIPTO Referring Unavailable GISSELLE, MANISHA Hurley Primary Care Unavailable JUAN CARLOS, SUDIPTO Referring Unavailable JUAN CARLOS, SUDIPTO Referring Unavailable GISSELLE, MANISHA Hurley Primary Care Unavailable WALT HIGGINS Referring Unavailable WALT HIGGINS Attending Unavailable GISSELLE, MANISHA Hurley Primary Care Unavailable JUAN CARLOS, SUDIPTO Referring Unavailable GISSELLE, MANISHA Hurley Primary Care Unavailable GISSELLE, MANISHA Hurley Primary Care Unavailable JUAN CARLOS, SUDIPTO Referring Unavailable GISSELLE, MANISHA Hurley Primary Care Unavailable JUAN CARLOS, SUDIPTO Referring Unavailable KOBE MEDELLIN Referring Unavailable GISSELLE, MANISHA Hurley Primary Care Unavailable GISSELLE, MANISHA Hurley Primary Care Unavailable SHANA FERGUSON Attending Unavailgeraldo e SELF Referring Unavailable GISSELLE, MANISHA Hurley Primary Care Unavailable JUAN CARLOS, SUDIPTO Referring Unavailable GISSELLE, MANISHA Hurley Primary Care Unavailable JUAN CARLOS, SUDIPTO Referring Unavailable NEEL TALBERT Referring Unavailable OLGA UREÑA Attending Unavailable GISSELLE, MANISHA Hurley Primary Care Unavailable GISSELLE, MANISHA Hurley Primary Care Unavailable LALY BUCHANAN Attending Unavailable SELF Referring Unavailable SHANA FERGUSON Attending Unavailabl e GISSELLE, MANISHA Hurley Primary Care Unavailable SELF Referring Unavailable GISSELLE, MANISHA Hurley Primary Care Unavailable SELF Referring Unavailable GISSELLE, MANISHA Hurley Primary Care Unavailable RADHA GARCIA Attending UnavailSHANA Hernandes Referring Unavailabl e GISSELLE, MANISHA Hurley Primary Care Unavailable RADHA GARCIA Attending Unavailabl e JUAN CARLOS, SUDIPTO Referring Unavailable GISSELLE, MANISHA Hurley Primary Care Unavailable Medications Current Medications Medication Drug Class(es) Dates Sig (Normalized) Sig (Original) acetaminophen 325 mg oral tablet (3 sources) Start: 08-26-2024 End: 08-17-2024 acetaminophen 650 mg tab(s) (TYLENOL) Start: 08-26-2024 End: 08-17-2024 650 mg, ORAL, ONCE, 1 dose, On Katerine 08/26/24 at 0000, Administer 15-30 minutes prior to bone marrow biopsy , TAUSSIG PROCEDURES Start: 09-07-2022 End: 02-17-2024 take 2 tablets by mouth every eight hours acetaminophen (TYLENOL EXTRA STRENGTH) 500 mg tablet Take 2 tablets (1,000 mg total) by mouth every 8 (eight) hours. 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 60 tablet 12/31/2024 Active [id number] 200 actuat albuterol 0.09 mg/actuat metered dose inhaler (20 sources) beta2-Adrenerg ic Agonist Start: 07-16-2024 End: 07-16-2024 take 1 dose by inhalation once 2.5 mg, INHALATION, ONCE, 1 dose, On Fri07/16/24 at 1500 Start: 06-17-2024 End: 06-17-2025 albuterol 2.5 mg /3 mL (0.08 3 %) 2.5 mg (PROVENTIL) Start: 06-17-2024 End: 06-17-2025 albuterol HFA 90 mcg/actuati on 2 Puff (PROVENTIL HFA, VENTOLIN HFA) Blood-Glucose Meter ([employer] Solutions[employer]CH ULTRA2 METER) (1 source) Start: 05-17-2024 End: 05-18-2024 Blood-Glucose Meter (ONETOUCH ULTRA2 METER) 1 Each as needed for up to 1 day. 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 30 tablet 3 07/09/2024 08/09/2024 Discontinued DULoxetine 20 mg delayed release oral capsule (14 sources) Serotonin and Norepinephrine Reuptake Inhibitor Start: 09-17-2024 End: 10-17-2024 take 1 capsule by mouth once daily DULoxetine (CYMBALTA) 20 mg capsule Indications: Neoplasm related pain , Anxiety about health Take 1 capsule by mouth once daily. 30 capsule 09/17/2024 10/11/2024 Discontinued 0.5 ml filgrastim 0.6 mg/ml prefilled syringe (2 sources) Leukocyte Growth Factor Start: 05-16-2024 End: 05-17-2024 inject 0.5 mL by subcutaneous injection once daily Filgrastim (NEUPOGEN) 300 mcg/0.5 mL injection Inject 0.5mL subcutaneously once daily. 10 Each 0 05/16/2024 05/17/2024 Discontinued fluconazole 200 mg oral tablet (20 sources) Azole Antifungal Start: 11-17-2024 End: 12-17-2024 take 1 tablet by mouth once daily fluconazole (DIFLUCAN) 200 mg tablet Take 1 tablet by mouth once daily. 30 tablet 11/17/2024 12/17/2024 Active Start: 10-11-2024 End: 11-10-2024 take 1 tablet by mouth once daily fluconazole (DIFLUCAN) 200 mg tablet Take 1 tablet by mouth once daily. 30 tablet 10/11/2024 11/10/2024 Active gabapentin 300 mg oral capsule (20 sources) Anti-epileptic Agent Start: 11-17-2024 End: 01-11-2025 gabapentin (NEURONTIN) 300 mg capsule Take 1 capsule in the morning and 2 capsules at night 90 capsule 12/14/2024 01/11/2025 Active Start: 05-17-2024 End: 11-15-2024 gabapentin (NEURONTIN) 300 m g capsule Take 1 capsule in the morning and 2 capsules at night 90 capsule 10/11/2024 4:49 PM EST 10/11/2024 11/15/2024 Discontinued Start: 05-17-2024 End: 05-17-2024 take 2 capsules by mouth once daily at bedtime gabapentin (NEURONTIN) 300 mg capsule Take 2 capsules by mouth daily at bedtime for 30 days. 60 capsule 0 05/17/2024 05/17/2024 Discontinued 0.2 ml glucagon 5 mg/ml auto-injector (20 sources) Antihypoglycemic Agent Start: 05-17-2024 glucagon (GVOKE HYPOPEN 1-PACK) 1 mg/0.2 mL auto-injector Inject 1 mg subcutaneously as needed. 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 150 mL 10/14/2024 3:16 PM EST 10/14/2024 Active hydrOXYzine hydrochloride 10 mg oral tablet (20 sources) Antihistamine Start: 10-11-2024 End: 10-18-2024 take 2 tablets by mouth every eight hours as needed hydrOXYzine HCl (ATARAX) 10 mg tablet Take 2 tablets by mouth three times a day as needed for anxiety for up to 7 days. 42 tablet 10/11/2024 10/18/2024 Active Start: 05-17-2024 End: 06-16-2024 take 1 tablet by mouth every eight hours as needed hydrOXYzine HCl (ATARAX) 25 mg tablet Take 1 tablet by mouth three times a day as needed for anxiety or itching/rash. 60 tablet 05/17/2024 06/16/2024 insulin, regular, human 100 unt/ml injectable solution (20 sources) Insulin Start: 10-11-2024 End: 11-23-2024 insulin regular human (NOVOL IN R REGULAR U100 INSULIN) 100 unit/mL injection Indications: Type 2 diabetes mellitus with hyperglycemia, with long-term current use of insulin (HCC) Inject subcutaneously sliding scale insulin three times daily at 6AM, 2PM and 10 PM with tube feeds: If Blood Glucose (mg/dL) is Scale 2 If Blood Glucose (mg/dL) is: Less than 110 Give 0 units 111-150 Give 0 units 151-200 Give 2 units 201-250 Give 4 units 251-300 Give 6 units 301-350 Give 8 units 351-400 Give 10 units >400 Give 10 units and Call physician TDD up to 30 units 10 mL 11/23/2024 Active Start: 05-17-2024 End: 10-11-2024 insulin regular (NovoLIN R F lexPen) 100 UNIT/ML pen Inject 7 units at 6 AM, 2 PM, and 10 PM (while tube feed infusing) + sliding scale If Blood Glucose (mg/dL) is 111-150 Give 0 units 151-200 Give 1 unit 201-250 Give 2 units 251-300 Give 3 units 301-350 Give 4 units 351-400 Give 5 units >400 Give 5 units and Call physician. Max 36 units per day. 05/17/2024 Active Start: 05-17-2024 End: 10-11-2024 insulin regular human (NOVOL IN R REGULAR U100 INSULIN) 100 unit/mL injection Inject subcutaneously 7 units three times daily at 6AM, 2PM and 10 PM with tube feeds plus sliding scale: If Blood Glucose (mg/dL) is 111-150 Give 0 units 151-200 Give 1 unit 201-250 Give 2 units 251-300 Give 3 units 301-350 Give 4 units 351-400 Give 5 units >400 Give 5 units and Call physician. 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) TAKE 1 TABLET BY MOUTH ONCE DAILY AT 6 AM 30 tablet 09/17/2024 10/11/2024 Discontinued LORazepam 1 mg oral tablet (2 sources) Benzodiazepine Start: 08-26-2024 End: 08-17-2024 LORazepam 0.5 mg tab(s) (ATIVAN) Start: 08-26-2024 End: 08-17-2024 take 0.5 mg under the tongue once 0.5 mg, SUBLINGUAL, ONCE, 1 dose, On Katerine 08/26/24 at 0000, Administer 15-30 minutes prior to bone marrow biopsy , TAUSSIG PROCEDURES nutritional supplement (OSMOLITE 1.2 YURI) 0.06 gram-1.2 kcal/mL liqd (20 sources) Start: 09-30-2024 nutritional whelan pplement (OSMOLITE 1.2 YURI) 0.06 gram-1.2 kcal/mL liqd Indications: Mediastinal mass , TEF (tracheoesophageal fistula) (HCC) 55 mL/hr by FEEDING TUBE route continuous. Tube Feeding Formula Type: Osmolite 1.2 or equivalent Rate: 55 ml/hr x 24 hours (1320 ml total volume, 1584 kcals, 73 gm prot) Water Flush: Flush with 70 mL every 4 hours [id number] mL 09/30/2024 Active Start: 09-30-2024 End: 12-29-2024 nutritional supplement (OSMO LITE 1.2 YURI) 0.06 gram-1.2 kcal/mL liqd Indications: Mediastinal mass , TEF (tracheoesophageal fistula) (HCC) 55 mL/hr by FEEDING TUBE route continuous. 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 90 tablet 2 08/18/2024 08/20/2024 Discontinued Start: 06-08-2024 End: 06-08-2024 4 mg, INTRAVENOUS, ONCE, 1 d ose, On Fri06/08/24 at 1200, Give IV push over 2 minutes Start: 05-17-2024 End: 06-16-2024 take 1 tablet by mouth every eight hours as needed ondansetron orally disintegrating (ZOFRAN ODT) 8 mg disintegrating tablet Dissolve 1 tablet by mouth every 8 hours as needed for nausea/vomiting. 45 tablet 05/17/2024 06/16/2024 Start: 05-17-2024 End: 05-17-2024 take 1 tablet by mouth every eight hours as needed ondansetron (ZOFRAN) 8 mg tablet Take 1 tablet by mouth every 8 hours as needed for nausea/vomiting. FOR NAUSEA 90 tablet 0 05/17/2024 05/17/2024 Discontinued oxyCODONE hydrochloride 10 mg oral tablet (20 sources) Opioid Agonist Start: 11-24-2024 End: 12-24-2024 take 1 tablet by mouth every eight hours as needed for pain oxyCODONE IR (ROXICODONE) 10 mg tab Indications: Neoplasm related pain Take 1 tablet by mouth every 8 hours as needed for pain for up to 30 days. 90 tablet 11/24/2024 10:52 AM EST 11/24/2024 12/24/2024 Active Start: 10-11-2024 End: 10-16-2024 take 1 tablet by mouth every six hours as needed for pain oxyCODONE IR (ROXICODONE) 10 mg tab Indications: 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[facility]) Take 1 tablet by mouth every 6 hours as needed for pain for up to 5 days. FOR PAIN. 20 tablet 10/11/2024 10/16/2024 Start: 05-28-2024 End: 06-11-2024 take 1 tablet by mouth every eight hours as needed for pain oxyCODONE IR (ROXICODONE) 5 mg immediate release tablet Indications: Bone pain Take 1 tablet by mouth every 8 hours as needed for pain for up to 14 days. 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 Take two times daily before meals at 6am and 4pm 1200 mL 11/22/2024 3:05 PM EST 11/22/2024 12/22/2024 Active Start: 10-11-2024 End: 11-10-2024 take 2 mg by mouth twice daily before mealtime pantoprazole oral liquid 2 mg/mL (CPD) Take 20 mL by mouth two times a day before meals at 6am and 4pm 1200 mL 10/11/2024 11/10/2024 Active Start: 09-20-2024 End: 10-11-2024 take 2 mg by mouth once daily pantoprazole oral liquid 2 mg/mL (CPD) Indications: On tube feeding diet Take 20ml by mouth once daily for 30 days 600 mL 3 09/20/2024 10/11/2024 Discontinued Start: 09-20-2024 End: 10-20-2024 take 2 mg by mouth once daily pantoprazole oral liquid 2 mg/mL (CPD) Indications: On tube feeding diet Take 20ml by mouth once daily for 30 days 600 mL 3 09/20/2024 10/20/2024 Suspended Start: 09-20-2024 End: 10-23-2024 take 2 mg by mouth once daily pantoprazole oral liquid 2 mg/mL (CPD) Indications: On tube feeding diet Take 20ml by mouth once daily for 30 days 600 mL 3 09/20/2024 10/23/2024 Suspended Start: 09-20-2024 End: 10-23-2024 take 2 mg by mouth once daily pantoprazole oral liquid 2 mg/mL (CPD) Indications: On tube feeding diet Take 20ml by mouth once daily for 30 days 600 mL 3 09/20/2024 10/23/2024 Active Start: 09-20-2024 End: 10-21-2024 take 2 mg by mouth once daily pantoprazole oral liquid 2 mg/mL (CPD) Indications: On tube feeding diet Take 20ml by mouth once daily for 30 days 600 mL 3 09/20/2024 10/21/2024 Active Start: 09-17-2024 End: 09-17-2024 take 2 mg by mouth once daily pantoprazole oral liquid 2 mg/mL (CPD) Indications: On tube feeding diet Take 20ml by mouth once daily for 30 days 600 mL 3 09/17/2024 09/17/2024 Discontinued Start: 09-17-2024 End: 10-17-2024 take 2 mg by mouth once daily pantoprazole oral liquid 2 mg/mL (CPD) Indications: On tube feeding diet Take 20ml by mouth once daily for 30 days 600 mL 3 09/17/2024 10/17/2024 Active Start: 08-18-2024 End: 09-17-2024 take 2 mg by mouth once daily pantoprazole oral liquid 2 mg/mL (CPD) Indications: On tube feeding diet Take 20ml by mouth once daily for 30 days 600 mL 3 08/18/2024 09/17/2024 Discontinued Start: 08-18-2024 take 2 mg by mouth once daily pantoprazole oral liquid 2 mg/mL (CPD) Indications: On tube feeding diet Take 20ml by mouth once daily for 30 days 600 mL 3 08/18/2024 Suspended Start: 08-18-2024 take 2 mg by mouth once daily pantoprazole oral liquid 2 mg/mL (CPD) Indications: On tube feeding diet Take 20ml by mouth once daily for 30 days 600 mL 3 08/18/2024 Active Start: 08-18-2024 End: 08-18-2024 take 2 mg by mouth once daily pantoprazole oral liquid 2 mg/mL (CPD) Indications: On tube feeding diet Take 20ml by mouth once daily for 30 days 600 mL 3 08/18/2024 08/18/2024 Discontinued Start: 08-16-2024 End: 08-18-2024 take 2 mg by mouth once daily pantoprazole oral liquid 2 mg/mL (CPD) Indications: On tube feeding diet Take 20ml by mouth once daily for 30 days 600 mL 3 08/16/2024 08/18/2024 Discontinued Start: 08-16-2024 take 2 mg by mouth once daily pantoprazole oral liquid 2 mg/mL (CPD) Indications: On tube feeding diet Take 20ml by mouth once daily for 30 days 600 mL 3 08/16/2024 Active Start: 06-25-2024 End: 08-16-2024 take 2 mg by mouth once daily pantoprazole oral liquid 2 mg/mL (CPD) Indications: On tube feeding diet Take 20ml by mouth once daily for 30 days 600 mL 3 06/25/2024 08/16/2024 Discontinued Start: 06-25-2024 take 2 mg by mouth once daily pantoprazole oral liquid 2 mg/mL (CPD) Indications: On tube feeding diet Take 20ml by mouth once daily for 30 days 600 mL 3 06/25/2024 Suspended Start: 06-25-2024 take 2 mg by mouth once daily pantoprazole oral liquid 2 mg/mL (CPD) Indications: On tube feeding diet Take 20ml by mouth once daily for 30 days 600 mL 3 06/25/2024 Active Start: 06-16-2024 End: 06-25-2024 take 2 mg by mouth once daily pantoprazole oral liquid 2 mg/mL (CPD) Indications: On tube feeding diet Take 20ml by mouth once daily for 30 days 600 mL 3 06/16/2024 06/25/2024 Discontinued Start: 06-16-2024 take 2 mg by mouth once daily pantoprazole oral liquid 2 mg/mL (CPD) Indications: On tube feeding diet Take 20ml by mouth once daily for 30 days 600 mL 3 06/16/2024 Suspended Start: 06-16-2024 take 2 mg by mouth once daily pantoprazole oral liquid 2 mg/mL (CPD) Indications: On tube feeding diet Take 20ml by mouth once daily for 30 days 600 mL 3 06/16/2024 Active Start: 06-15-2024 End: 06-16-2024 take 2 mg by mouth once daily pantoprazole oral liquid 2 mg/mL (CPD) Take 20ml by mouth once daily for 30 days 600 mL 06/15/2024 06/16/2024 Discontinued Start: 06-15-2024 take 2 mg by mouth once daily pantoprazole oral liquid 2 mg/mL (CPD) Take 20ml by mouth once daily for 30 days 600 mL 06/15/2024 Active Start: 05-17-2024 End: 06-15-2024 take 2 mg by mouth once daily pantoprazole oral liquid 2 mg/mL (CPD) Take 20ml by mouth once daily for 30 days 600 mL 05/17/2024 06/15/2024 Discontinued Start: 05-17-2024 take 2 mg by mouth once daily pantoprazole oral liquid 2 mg/mL (CPD) Take 20ml by mouth once daily for 30 days 600 mL 05/17/2024 Active Start: 05-17-2024 take 2 mg by mouth once daily pantoprazole oral liquid 2 mg/mL (CPD) Take 20ml by mouth once daily for 30 days 600 mL 0 05/17/2024 Active pentamidine isethionate 50 mg/ml inhalation solution (20 sources) Antiprotozoal Start: 06-17-2024 End: 10-19-2025 pentamidine 300 mg nebulizer solution (NEBUPENT) Start: 06-17-2024 End: 10-19-2025 300 mg, INHALATION, EVERY 4 WEEKS, 12 doses, First dose on Fri11/17/24 at 1999, Last dose on Fri09/21/25 at 1999, Reconstitute pentamidine vial according to package instructions prior to administering, Antimicrobial indication: Prophylaxis microencapsulated potassium chloride 20 meq extended release oral tablet (20 sources) Start: 05-28-2024 potassium chlo ride CR (Klor-Con M20) 20 MEQ ER tablet Take 40 mEq by mouth in the morning. 05/28/2024 Active Start: 05-28-2024 End: 09-17-2024 take 2 tablets by mouth once daily potassium chloride ER (KLOR-CON) 20 mEq tablet Indications: Hypokalemia Take 2 tablets by mouth once daily. 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 49 tablet 12/09/2024 Active Start: 09-09-2024 predniSONE (DE LTASONE) 50 mg Take 1 tablet by mouth once daily. Days 1-5. Repeat every 28 days. ADMINISTER WITH FOOD 10 tablet 5 09/09/2024 Active Start: 06-04-2024 End: 09-24-2024 take 2 tablets by mouth at mealtime predniSONE (Deltasone) 50 MG tablet Take 100 mg by mouth in the morning. Take with meals. 06/25/2024 Active Start: 05-17-2024 End: 05-26-2024 take 8 tablets by mouth twice daily, then take 4 tablets by mouth twice daily, then take 2 tablets by mouth twice daily, then take 1 tablet by mouth twice daily predniSONE (DELTASONE) 5 mg tablet Take 8 tablets by mouth two times a day for 3 days, THEN 4 tablets two times a day for 2 days, THEN 2 tablets two times a day for 2 days, THEN 1 tablet two times a day for 2 days. 76 tablet 0 05/17/2024 05/26/2024 Active propranolol hydrochloride 4 mg/ml oral solution (20 sources) beta-Adrenergic Corky Start: 10-11-2024 take 5 mL by mouth three times daily propranolol (INDERAL) 20 mg/5 mL oral liquid Take 5 mL by mouth three times a day. 10/11/2024 Active Start: 07-09-2024 End: 09-08-2024 take 5 mL by mouth in the morning, then take 5 mL by mouth in the evening, then take 5 mL by mouth at bedtime propranolol (Inderal) 20 MG/5ML solution Indications: Primary hypertension (CMS/HCC) Take 5 mL (20 mg) by mouth in the morning and 5 mL (20 mg) in the evening and 5 mL (20 mg) before bedtime. 450 mL 3 08/09/2024 08/18/2024 Discontinued (Therapy completed) End: 10-11-2024 take 20 mg by mouth every six hours propranolol HCl (PROPRANOLOL 20MG/5ML ORAL SOLN, 90ML,) Take 20 mg by mouth every 6 hours. 10/11/2024 Discontinued sertraline 50 mg oral tablet (20 sources) Serotonin Reuptake Inhibitor Start: 11-24-2024 End: 02-22-2025 take 1 tablet by mouth once daily sertraline (ZOLOFT) 50 mg tablet Indications: Anxiety about health Take 1 tablet by mouth once daily. 90 tablet 11/24/2024 10:52 AM EST 11/24/2024 02/22/2025 Active 125 ml sodium chloride 9 mg/ml prefilled syringe (20 sources) Start: 09-30-2024 End: 09-25-2025 inject 10 mL intravenously once daily sodium chloride 0.9 %, flush, (NORMAL SALINE FLUSH) syringe Inject 10 mL intravenously once daily. 600 mL 5 09/30/2024 09/25/2025 Active Start: 09-06-2024 End: 09-06-2024 500 mL, INTRAVENOUS, at 999 mL/hr, Administer over 0.5 Hours, ONCE, 1 dose, On Fri09/06/24 at 1030 Start: 08-06-2024 End: 08-06-2024 500 mL, INTRAVENOUS, at 999 mL/hr, Administer over 0.5 Hours, ONCE, 1 dose, On Fri08/06/24 at 1330 Start: 07-16-2024 End: 07-16-2024 1,000 mL, INTRAVENOUS, at 50 0 mL/hr, Administer over 2 Hours, ONCE, 1 dose, On Fri07/16/24 at 1500 Start: 06-08-2024 End: 06-08-2024 500 mL, INTRAVENOUS, at 999 mL/hr, Administer over 0.5 Hours, ONCE, 1 dose, On Fri06/08/24 at 1200 Start: 06-08-2024 End: 06-09-2024 10-20 mL, INTRAVENOUS, DI RECTED NEEDED, Starting on Fri06/08/24 at 1129, Until Fri06/09/24 at 0304, See Administration Instructions, Upon IVAD de-access or post blood draw the IVAD should be flushed with 20 mL of 0.9% NaCl using push/pause method. Normal saline flush every 12 weeks when not being used. Start: 06-08-2024 End: 06-09-2024 10-20 mL, INTRAVENOUS, NE EDED, Starting on Fri06/08/24 at 1129, Until Fri06/09/24 at 0304, See Administration Instructions, If no IVAD access, may place IV if needed for labs or possible treatment. Flush 10-20ml on IV start and as needed. D5W or LR may be used in place of NS for medication that are incompatible (i.e. with oxaliplatin). Start: 06-04-2024 End: 06-04-2024 1,000 mL, INTRAVENOUS, at 50 0 mL/hr, Administer over 2 Hours, ONCE, 1 dose, On Fri06/04/24 at 1430 Start: 04-26-2024 End: 05-26-2024 inject 10 mL intravenously once daily sodium chloride 0.9 %, flush, (BD POSIFLUSH) syringe Inject 10 mL intravenously once daily. 600 mL 0 04/26/2024 05/26/2024 Active Completed/Discontinued Medications Medication Drug Class(es) Dates Sig (Normalized) Sig (Original) alteplase 2 mg catheter clearance solution (CATHFLO) (6 sources) Start: 05-28-2024 End: 05-28-2024 alteplase 2 mg catheter clearance solution (CATHFLO) Blood-Glucose Sensor (FREESTYLE VERENA 3 PLUS SENSOR) taran (20 sources) Start: 08-16-2024 End: 11-23-2024 Blood-Glucose Sensor (FREESTYLE VERENA 3 PLUS SENSOR) taran Indications: Type 2 diabetes mellitus with hyperglycemia, with long-term current use of insulin (HCC) Apply new sensor every fifteen (15) days to upper arm. 6 Each 4 08/16/2024 11/23/2024 Discontinued Start: 08-16-2024 Blood-Glucose Sensor (FREESTYLE VERENA 3 PLUS SENSOR) taran Indications: Type 2 diabetes mellitus with hyperglycemia, with long-term current use of insulin (HCC) Apply new sensor every fifteen (15) days to upper arm. 6 Each 4 08/16/2024 Suspended Start: 08-16-2024 Blood-Glucose Sensor (FREESTYLE VERENA 3 PLUS SENSOR) taran Indications: Type 2 diabetes mellitus with hyperglycemia, with long-term current use of insulin (HCC) Apply new sensor every fifteen (15) days to upper arm. 6 Each 4 08/16/2024 Active Start: 07-23-2024 End: 08-16-2024 Blood-Glucose Sensor (FREEST YLE VERENA 3 PLUS SENSOR) taran Indications: Type 2 diabetes mellitus with hyperglycemia, with long-term current use of insulin (HCC) Apply new sensor every fifteen (15) days to upper arm. 6 Each 4 07/23/2024 08/16/2024 Discontinued Start: 07-23-2024 Blood-Glucose Sensor (FREESTYLE VERENA 3 PLUS SENSOR) taran Indications: Type 2 diabetes mellitus with hyperglycemia, with long-term current use of insulin (HCC) Apply new sensor every fifteen (15) days to upper arm. 6 Each 4 07/23/2024 Suspended Start: 07-23-2024 Blood-Glucose Sensor (FREESTYLE VERENA 3 PLUS SENSOR) taran Indications: Type 2 diabetes mellitus with hyperglycemia, with long-term current use of insulin (HCC) Apply new sensor every fifteen (15) days to upper arm. 6 Each 4 07/23/2024 Active Start: 07-13-2024 End: 07-23-2024 Blood-Glucose Sensor (FREEST YLE VERENA 3 PLUS SENSOR) atran Indications: Controlled steroid-induced diabetes mellitus (HCC) Apply new sensor every fifteen (15) days to upper arm. 6 Each 4 07/13/2024 07/23/2024 Discontinued Start: 07-13-2024 Blood-Glucose Sensor (FREESTYLE VERENA 3 PLUS SENSOR) taran Indications: Controlled steroid-induced diabetes mellitus (HCC) Apply new sensor every fifteen (15) days to upper arm. 6 Each 4 07/13/2024 Suspended Start: 07-13-2024 Blood-Glucose Sensor (FREESTYLE VERENA 3 PLUS SENSOR) taran Indications: Controlled steroid-induced diabetes mellitus (HCC) Apply new sensor every fifteen (15) days to upper arm. 6 Each 4 07/13/2024 Active bortezomib 3.5 mg injection (1 source) Proteasome Inhibitor Start: 05-19-2024 End: 05-19-2024 bortezomib 2.35 mg in NaCl 0.9% (VELCADE) cycloPHOSphamide 1,810 mg in NaCl 0.9% 170 mL (CYTOXAN) (1 source) Start: 08-06-2024 End: 08-06-2024 1,810 mg (1,000 mg/m2 1.81 m2 Treatment Plan BSA from Recorded weight), INTRAVENOUS, Administer over 30 Minutes, ONCE, 1 dose, On Fri08/06/24 at 1630, Total Volume: EXP: Hazardous Chemotherapy Drug: Use appropriate PPE. cycloPHOSphamide 1,810 mg in NaCl 0.9% 200.5 mL (CYTOXAN) (1 source) Start: 07-16-2024 End: 07-16-2024 1,810 mg (1,000 mg/m2 1.81 m2 Treatment Plan BSA from Recorded weight), INTRAVENOUS, Administer over 30 Minutes, ONCE, 1 dose, On Fri07/16/24 at 1500, Approx Total Volume EXP: Hazardous Chemotherapy Drug: Use appropriate PPE. cycloPHOSphamide 1,810 mg in NaCl 0.9% 365.5 mL (CYTOXAN) (2 sources) Start: 06-25-2024 End: 06-25-2024 1,810 mg (1,000 mg/m2 1.81 m2 Treatment Plan BSA from Recorded weight), INTRAVENOUS, Administer over 30 Minutes, ONCE, 1 dose, On Fri06/25/24 at 1500, EXP: Hazardous Chemotherapy Drug: Use appropriate PPE. Start: 06-04-2024 End: 06-04-2024 1,810 mg (1,000 mg/m2 1.81 m 2 Treatment Plan BSA from Recorded weight), INTRAVENOUS, Administer over 30 Minutes, ONCE, 1 dose, On Fri06/04/24 at 1430, Approx Total Volume: mL EXP: Hazardous Chemotherapy Drug: Use appropriate PPE. 1 ml dexamethasone phosphate 4 mg/ml injection (1 source) Corticosteroid Start: 08-06-2024 End: 08-06-2024 10 mg, INTRAVENOUS, ONCE, 1 dose, On Fri08/06/24 at 1630, Administer over 5 minutes. Start: 08-06-2024 End: 08-06-2024 10 mg, INTRAVENOUS, ONCE, 1 dose, On Fri08/06/24 at 1630, Administer over 5 minutes. dexAMETHasone 10 mg in NaCl 0.9% 50 mL (DECADRON) (2 sources) Start: 07-16-2024 End: 07-16-2024 10 mg, INTRAVENOUS, ONCE, 1 dose, On Fri07/16/24 at 1500, Refrigerate. Start: 06-04-2024 End: 06-04-2024 10 mg, INTRAVENOUS, ONCE, 1 dose, On Fri06/04/24 at 1430, Refrigerate. docusate sodium 100 mg oral capsule (1 source) Start: 09-05-2022 End: 02-17-2024 take 1 capsule by mouth in the morning, then take 1 capsule by mouth at bedtime docusate sodium (COLACE) 100 mg capsule Take 1 capsule (100 mg total) by mouth in the morning and 1 capsule (100 mg total) before bedtime. 10 capsule 09/05/2022 02/17/2024 Discontinued (Therapy completed) 0.8 ml enoxaparin sodium 100 mg/ml prefilled syringe (20 sources) Low Molecular Weight Heparin Start: 10-18-2024 End: 01-02-2025 inject 0.725 mL by subcutaneous injection every twelve hours enoxaparin (LOVENOX) 80 mg/0.8 mL Indications: TLL (T-cell lymphoblastic lymphoma) ([facility]) Inject 0.725 mL subcutaneously every 12 hours. 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 144 mL 08/24/2024 10/11/2024 Discontinued Start: 04-26-2024 End: 05-26-2024 inject 75 mg by subcutaneous injection every twelve hours enoxaparin (LOVENOX) 80 mg/0.8 mL Inject 0.75 mL subcutaneously every 12 hours. 48 mL 0 04/26/2024 05/26/2024 Active inject 80 mg by subc utaneous injection every twelve hours Enoxaparin Sodium 80 MG/0.8ML solution prefilled syringe Inject 80 mg under the skin every 12 (twelve) hours Active famotidine 40 mg oral tablet (12 sources) Histamine-2 Receptor Antagonist Start: 03-02-2024 End: 03-02-2025 take 1 tablet by mouth at bedtime famotidine (Pepcid) 40 MG tablet Indications: Gastroesophageal reflux disease without esophagitis Take 1 tablet (40 mg) by mouth at bedtime 30 tablet 3 03/02/2024 07/09/2024 Discontinued (Discontinued by another clinician) ferrous sulfate 325 mg oral tablet (1 source) Start: 09-05-2022 End: 02-17-2024 take 1 tablet by mouth in the morning, then take 1 tablet by mouth at mealtime ferrous sulfate (FerrouSuL) 325 (65 FE) mg tablet Take 1 tablet (325 mg total) by mouth in the morning and 1 tablet (325 mg total) in the evening. Take with meals. 30 tablet 09/05/2022 02/17/2024 Discontinued (Therapy completed) 12 hr guaiFENesin 600 mg extended release oral tablet (14 sources) Start: 10-14-2024 End: 11-13-2024 take 1 tablet by mouth twice daily guaiFENesin (MUCINEX) 600 mg 12 hr tablet Take 1 tablet by mouth two times a day. 60 tablet 10/14/2024 11/13/2024 ibuprofen 800 mg oral tablet (1 source) Nonsteroidal Anti-inflammatory Drug Start: 09-07-2022 End: 02-17-2024 take 1 tablet by mouth every six hours as needed for pain ibuprofen (MOTRIN) 800 mg tablet Take 1 tablet (800 mg total) by mouth every 6 (six) hours as needed for pain. 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 In the evening on an empty stomach. Oral chemotherapy agent; wear double gloves when handling. 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 Except the week you are receiving IT methotrexate (see calendar). 42 tablet 3 09/14/2024 09/24/2024 Discontinued methotrexate (PF) 15 mg, hydrocortisone sodium succinate (PF) 50 mg in NaCl (PF) 0.9% 3 mL (3 sources) Start: 09-06-2024 End: 09-06-2024 INTRATHECAL, ONCE, 1 dose, On 09/06/24 at 1000, EXP: To be administered in IR Hazardous Chemotherapy Drug: Use appropriate PPE. For Intrathecal Use Only. Protect from Light., Intraprocedure Start: 08-06-2024 End: 08-06-2024 INTRATHECAL, ONCE, 1 dose, O n 08/06/24 at 0900, EXP: To be administered in IR Hazardous Chemotherapy Drug: Use appropriate PPE. For Intrathecal Use Only. Protect from Light., Intraprocedure Start: 06-08-2024 End: 06-08-2024 INTRATHECAL, ONCE, 1 dose, O n 06/08/24 at 0730, EXP: To be administered in IR Hazardous Chemotherapy Drug: Use appropriate PPE. For Intrathecal Use Only. Protect from Light. nutritional supplements (OSMOLITE 1.2 YURI) 0.06 gram-1.2 kcal/mL liqd (20 sources) Start: 05-14-2024 nutritional whelan pplements (OSMOLITE 1.2 YURI) 0.06 gram-1.2 kcal/mL liqd Indications: Mediastinal mass , TEF (tracheoesophageal fistula) (HCC) 55 mL/hr by FEEDING TUBE route continuous. Tube Feeding Formula Type: Osmolite 1.2 or equivalent Rate: 55 ml/hr x 24 hours (1320 ml total volume, 1584 kcals, 73 gm prot) Water Flush: Flush with 70 mL every 4 hours 83355 mL 05/14/2024 Suspended Start: 05-14-2024 nutritional whelan pplements (OSMOLITE 1.2 YURI) 0.06 gram-1.2 kcal/mL liqd Indications: Mediastinal mass , TEF (tracheoesophageal fistula) (HCC) 55 mL/hr by FEEDING TUBE route continuous. Tube Feeding Formula Type: Osmolite 1.2 or equivalent Rate: 55 ml/hr x 24 hours (1320 ml total volume, 1584 kcals, 73 gm prot) Water Flush: Flush with 70 mL every 4 hours 47560 mL 05/14/2024 Active Start: 05-14-2024 End: 06-13-2024 nutritional supplements (OSM OLITE 1.2 YURI) 0.06 gram-1.2 kcal/mL liqd Indications: Mediastinal mass , TEF (tracheoesophageal fistula) (HCC) 55 mL/hr by FEEDING TUBE route continuous. Tube Feeding Formula Type: Osmolite 1.2 or equivalent Rate: 55 ml/hr x 24 hours (1320 ml total volume, 1584 kcals, 73 gm prot) Water Flush: Flush with 70 mL every 4 hours 71100 mL 05/14/2024 06/13/2024 Active Start: 05-14-2024 End: 06-13-2024 nutritional supplements (OSM OLITE 1.2 YURI) 0.06 gram-1.2 kcal/mL liqd Indications: Mediastinal mass , TEF (tracheoesophageal fistula) (HCC) 55 mL/hr by FEEDING TUBE route continuous. Tube Feeding Formula Type: Osmolite 1.2 or equivalent Rate: 55 ml/hr x 24 hours (1320 ml total volume, 1584 kcals, 73 gm prot) Water Flush: Flush with 70 mL every 4 hours 93350 mL 0 05/14/2024 06/13/2024 Active omeprazole 40 mg delayed release oral capsule (12 sources) Proton Pump Inhibitor Start: 02-27-2024 End: 02-26-2025 take 1 capsule by mouth before mealtime omeprazole (PriLOSEC) [address] capsule Indications: Gastroesophageal reflux disease without esophagitis Take 1 capsule (40 mg) by mouth in the morning. Take before meals. Do not crush or chew.. 90 capsule 3 02/27/2024 07/09/2024 Discontinued (Discontinued by another clinician) 5 ml palonosetron 0.05 mg/ml injection (2 sources) Serotonin-3 Receptor Antagonist Start: 07-16-2024 End: 07-16-2024 0.25 mg, INTRAVENOUS, ONCE, 1 dose, On Fri07/16/24 at 1500, Flush IV line with NS prior to and following administration. Start: 06-04-2024 End: 06-04-2024 0.25 mg, INTRAVENOUS, ONCE, 1 dose, On Fri06/04/24 at 1430, Flush IV line with NS prior to and following administration. pantoprazole 40 mg delayed release oral tablet (1 source) Proton Pump Inhibitor Start: 05-17-2024 End: 05-17-2024 take 1 tablet by mouth once daily pantoprazole DR (PROTONIX) 40 mg tablet Take 1 tablet by mouth once daily. 30 tablet 0 05/17/2024 05/17/2024 Discontinued pegfilgrastim-apgf 6 mg injection (NYVEPRIA) (1 source) Start: 05-19-2024 End: 05-19-2024 pegfilgrastim-apgf 6 mg injection (NYVEPRIA) vinCRIStine 2 mg in NaCl 0.9% 60 mL (ONCOVIN) (4 sources) Start: 08-06-2024 End: 08-06-2024 2 mg (set by rule on 04/22/2024 3:25 PM), INTRAVENOUS, Administer over 10 Minutes, ONCE, 1 dose, On Fri08/06/24 at 1630, CAREFULLY CONFIRM ROUTE PRIOR TO ADMINISTRATION. If patient has a PERIPHERAL LINE: infusion must be administered VIA GRAVITY by a Vesicant Certified Nurse. Once infusion has completed, backfill empty chemo bag with 50 mL NS to flush line. If patient has a CENTRAL LINE: administer via infusion pump. MAX DOSE IS 2 MG EXP: Hazardous Chemotherapy Drug: Use appropriate PPE. Antineoplastic Vesicant. FATAL IF GIVEN BY OTHER ROUTES - For Intravenous Use Only. Start: 07-16-2024 End: 07-16-2024 2 mg (set by rule on 04/22/20 3:25 PM), INTRAVENOUS, Administer over 10 Minutes, ONCE, 1 dose, On Fri07/16/24 at 1500, CAREFULLY CONFIRM ROUTE PRIOR TO ADMINISTRATION. If patient has a PERIPHERAL LINE: infusion must be administered VIA GRAVITY by a Vesicant Certified Nurse. Once infusion has completed, backfill empty chemo bag with 50 mL NS to flush line. If patient has a CENTRAL LINE: administer via infusion pump. MAX DOSE IS 2 MG EXP: Hazardous Chemotherapy Drug: Use appropriate PPE. Antineoplastic Vesicant. FATAL IF GIVEN BY OTHER ROUTES - For Intravenous Use Only. Start: 06-25-2024 End: 06-25-2024 2 mg (set by rule on 04/22/20 3:25 PM), INTRAVENOUS, Administer over 10 Minutes, ONCE, 1 dose, On Fri06/25/24 at 1500, CAREFULLY CONFIRM ROUTE PRIOR TO ADMINISTRATION. If patient has a PERIPHERAL LINE: infusion must be administered VIA GRAVITY by a Vesicant Certified Nurse. Once infusion has completed, backfill empty chemo bag with 50 mL NS to flush line. If patient has a CENTRAL LINE: administer via infusion pump. MAX DOSE IS 2 MG EXP: Hazardous Chemotherapy Drug: Use appropriate PPE. Antineoplastic Vesicant. FATAL IF GIVEN BY OTHER ROUTES - For Intravenous Use Only. Start: 06-04-2024 End: 06-04-2024 2 mg (set by rule on 04/22/20 3:25 PM), INTRAVENOUS, Administer over 10 Minutes, ONCE, 1 dose, On Fri06/04/24 at 1430, CAREFULLY CONFIRM ROUTE PRIOR TO ADMINISTRATION. If patient has a PERIPHERAL LINE: infusion must be administered VIA GRAVITY by a Vesicant Certified Nurse. Once infusion has completed, backfill empty chemo bag with 50 mL NS to flush line. If patient has a CENTRAL LINE: administer via infusion pump. MAX DOSE IS 2 MG EXP: Hazardous Chemotherapy Drug: Use appropriate PPE. Antineoplastic Vesicant. FATAL IF GIVEN BY OTHER ROUTES - For Intravenous Use Only. Problems Active Problems Problem Classification Problem Date Documented Da te Episodic/Chronic Anxiety disorders (20 sources) Anxiety; Translations: [Anxiety disorder, unspecified] Onset: 4 09-25-2024 Chronic Bacterial infection; unspecified site (20 sources) Infection caused by Streptococcus mitis group; Translations: [Streptococcal infection, unspecified site] Onset: 4 04-21-2024 Episodic Deficiency and other anemia (20 sources) Iron deficiency anemia due to blood loss; Translations: [Iron deficiency anemia secondary to blood loss (chronic)] Onset: 2 07-09-2024 Chronic Deficiency and other anemia (20 sources) Anemia of chronic disease; Translations: [Anemia in other chronic diseases classified elsewhere] Onset: 4 09-25-2024 Chronic Diabetes mellitus with complications (3 sources) Hyperglycemia due to type 2 diabetes mellitus; Translations: [Type 2 diabetes mellitus with hyperglycemia] 07-23-2024 Chronic Diabetes mellitus without complication (5 sources) Steroid-induced diabetes; 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] 05-20-2024 Chronic Diseases of white blood cells (20 sources) Leukocytosis; Translations: [Elevated white blood cell count, unspecified] Onset: 4 04-21-2024 Chronic E Codes: Adverse effects of medical drugs (1 source) Adverse effect of unspecified drugs, medicaments and biological substances, initial encounter; Translations: [Adverse effect of unspecified drugs, medicaments and biological substances, initial encounter] Onset: 4 Episodic Esophageal disorders (20 sources) Gastroesophageal reflux disease; Translations: [Gastro-esophageal reflux disease without esophagitis] Onset: 4 09-25-2024 Chronic Essential hypertension (20 sources) Essential hypertension; Translations: [Essential (primary) hypertension] Onset: 4 07-09-2024 Chronic Fluid and electrolyte disorders (1 source) Hypokalemia; Translations: [Hypokalemia] 05-28-2024 Episodic Immunity disorders (20 sources) Patient immunocompromised; Translations: [Immunodeficiency, unspecified] Onset: 4 04-21-2024 Chronic Leukemias (20 sources) T-cell acute lymphoblastic leukemia; Translations: [Acute lymphoblastic leukemia not having achieved remission] Onset: 4 04-21-2024 Chronic Lymphadenitis (2 sources) Localized enlarged lymph nodes; Translations: [Localized enlarged lymph nodes] Onset: Episodic Maintenance chemotherapy; radiotherapy (1 source) Patient encounter status; Translations: [Encounter for antineoplastic chemotherapy] 06-28-2024 Chronic Miscellaneous mental health disorders (3 sources) Anxiety about body function or health; Translations: [Other symptoms and signs involving emotional state] 09-17-2024 Episodic Non-Hodgkin`s lymphoma (20 sources) Precursor T-cell lymphoblastic lymphoma; 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, unspecified site] Onset: 4 05-19-2024 Chronic Nutritional deficiencies (20 sources) Undernutrition; Translations: [Mild protein-calorie malnutrition] Onset: 4 04-21-2024 Chronic Other aftercare (1 source) Surgical follow-up; Translations: [Encounter for follow-up examination after completed treatment for conditions other than malignant neoplasm] 05-20-2024 Episodic Other bone disease and musculoskeletal deformities (2 sources) Bone pain; Translations: [Other specified disorders of bone, unspecified site] 05-19-2024 Episodic Other liver diseases (1 source) Inflammatory disease of liver; Translations: [Inflammatory liver disease, unspecified] 07-01-2024 Chronic Other lower respiratory disease (1 source) History of tracheoesophageal fistula; 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] 05-19-2024 Episodic Other lower respiratory disease (2 sources) Other nonspecific abnormal finding of lung field; Translations: [Other nonspecific abnormal finding of lung field] Onset: Episodic Other lower respiratory disease (2 sources) Chronic cough; Translations: [Chronic cough] 10-14-2024 Episodic Other nervous system disorders (1 source) Peripheral neuropathy due to and following chemotherapy; Translations: [Drug-induced polyneuropathy] 06-28-2024 Chronic Other nervous system disorders (20 sources) Pain due to neoplastic disease; Translations: [Neoplasm related pain (acute) (chronic)] Onset: 4 09-17-2024 Chronic Other nervous system disorders (20 sources) Neuropathy caused by chemical substance; Translations: [Drug-induced polyneuropathy] Onset: 4 09-25-2024 Chronic Other nutritional; endocrine; and metabolic disorders (20 sources) Obese class I; Translations: [Obesity, unspecified] Onset: 4 04-22-2024 Chronic Other nutritional; endocrine; and metabolic disorders (4 sources) Cardiomyopathy; Translations: [Organ-limited amyloidosis] 11-17-2024 Chronic Other nutritional; endocrine; and metabolic disorders (1 source) Organ-limited amyloidosis; 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)] Onset: 5 Chronic Other nutritional; endocrine; and metabolic disorders (1 source) Loss of appetite; Translations: [Anorexia] 11-24-2024 Episodic Other skin disorders (2 sources) Facial swelling Onset: Episodic Naomy-; endo-; and myocarditis; cardiomyopathy (except that caused by tuberculosis or sexually transmitted disease) (1 source) Cardiomyopathy in diseases classified elsewhere; 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)] Onset: 5 Chronic Phlebitis; thrombophlebitis and thromboembolism (20 sources) Thrombosis; Translations: [Acute embolism and thrombosis of unspecified vein] Onset: 4 04-21-2024 Episodic Pneumonia (except that caused by tuberculosis or sexually transmitted disease) (20 sources) Postobstructive pneumonia; Translations: [Pneumonia, unspecified organism] Onset: 5 10-07-2024 Episodic Residual codes; unclassified (4 sources) History of bone marrow transplant; Translations: [Bone marrow transplant status] 06-18-2024 Chronic Residual codes; unclassified (1 source) Pain, unspecified; Translations: [Pain, unspecified] Onset: Episodic Residual codes; unclassified (5 sources) Prevention status; Translations: [Need for prophylactic immunotherapy] 06-18-2024 Episodic Residual codes; unclassified (20 sources) Insomnia; Translations: [Insomnia, unspecified] Onset: 10-09-2024 Episodic Residual codes; unclassified (1 source) Other specified health status; Translations: [On tube feeding diet] Onset: Episodic Past or Other Problems Problem Classification Problem Date Documented Da te Episodic/Chronic Abdominal hernia (2 sources) Hernia of abdominal cavity; Translations: [Incisional hernia] Onset: 02-17-2024 02-19-2024 Episodic Benign neoplasm of uterus (20 sources) Uterine leiomyoma; Translations: [Leiomyoma of uterus, unspecified] Onset: 04-12-2019 Resolved: 10-22-2022 04-21-2024 Episodic Deficiency and other anemia (20 sources) Iron deficiency anemia; Translations: [Iron deficiency anemia, unspecified] Onset: 08-09-2022 07-09-2024 Episodic Deficiency and other anemia (20 sources) Anemia; Translations: [Anemia, unspecified] Onset: 08-10-2022 07-09-2024 Episodic Diabetes mellitus without complication (20 sources) Steroid-induced hyperglycemia; Translations: [Hyperglycemia, unspecified] Onset: 05-02-2024 05-12-2024 Episodic Fever of unknown origin (20 sources) Fever; Translations: [Fever, unspecified] Onset: 09-26-2024 Resolved: 10-11-2024 09-26-2024 Episodic Headache; including migraine (20 sources) Headache; Translations: [Headache] Onset: 05-05-2024 05-09-2024 Episodic Mood disorders (1 source) Mood disorders Onset: 08-09-2022 08-09-2022 Mycoses (20 sources) Renal tract candidiasis; Translations: [Other urogenital candidiasis] Onset: 09-29-2024 09-29-2024 Episodic Nausea and vomiting (20 sources) Nausea; Translations: [Nausea] Onset: 09-24-2024 09-25-2024 Episodic Nonmalignant breast conditions (20 sources) Breast lump; Translations: [Unspecified lump in unspecified breast] Onset: 04-19-2024 04-21-2024 Episodic Other aftercare (20 sources) Post-discharge follow-up; Translations: [Encounter for follow-up examination after completed treatment for conditions other than malignant neoplasm] Onset: 04-18-2024 04-21-2024 Episodic Other aftercare (20 sources) Insulin dose changed; Translations: [manager intermediate (current) use of insulin] Onset: 05-04-2024 05-04-2024 Episodic Other aftercare (20 sources) Drug therapy finding; Translations: [manager intermediate (current) use of systemic steroids] Onset: 05-05-2024 05-06-2024 Episodic Other aftercare (20 sources) Patient encounter status; Translations: [Encounter for therapeutic drug level monitoring] Onset: 09-26-2024 06-18-2024 Episodic Other aftercare (20 sources) Under care of palliative care physician; Translations: [Encounter for palliative care] Onset: 09-26-2024 09-17-2024 Episodic Other and unspecified benign neoplasm (20 sources) Benign neoplasm of ovary; Translations: [Benign neoplasm of unspecified ovary] Onset: 07-09-2024 07-09-2024 Episodic Other connective tissue disease (20 sources) Pain in bilateral legs; Translations: [Pain in right leg] Onset: 05-09-2024 05-13-2024 Episodic Other diseases of veins and lymphatics (20 sources) Superior vena cava syndrome ; 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] Onset: 04-18-2024 04-21-2024 Episodic Other gastrointestinal disorders (20 sources) Dysphagia; Translations: [Dysphagia, unspecified] Onset: 04-21-2024 04-21-2024 Episodic Other gastrointestinal disorders (20 sources) Therapeutic opioid induced constipation; Translations: [Drug induced constipation] Onset: 09-26-2024 Resolved: 10-01-2024 09-27-2024 Episodic Other liver diseases (20 sources) Enzyme level - finding; Translations: [Transaminitis] Onset: 05-05-2024 05-13-2024 Episodic Other liver diseases (20 sources) Alkaline phosphatase raised; Translations: [Abnormal levels of other serum enzymes] Onset: 09-24-2024 09-25-2024 Episodic Other lower respiratory disease (20 sources) Hypoxia; Translations: [Hypoxemia] Onset: 04-19-2024 04-21-2024 Episodic Other lower respiratory disease (1 source) Hypoxemia; Translations: [Hypoxia] Onset: 04-26-2024 Episodic Other nutritional; endocrine; and metabolic disorders (20 sources) Hyperbilirubinemia; Translations: [Other disorders of bilirubin metabolism] Onset: 10-05-2024 Resolved: 10-08-2024 10-08-2024 Chronic Other screening for suspected conditions (not mental disorders or infectious disease) (20 sources) Abnormal findings on diagnostic imaging of breast; Translations: [Other abnormal and inconclusive findings on diagnostic imaging of breast] Onset: 04-23-2024 04-26-2024 Episodic Other upper respiratory disease (20 sources) Mediastinal mass; Translations: [Other diseases of mediastinum, not elsewhere classified] Onset: 04-06-2024 04-21-2024 Episodic Other upper respiratory disease (1 source) Other diseases of mediastinum, not elsewhere classified; Translations: [Mediastinal mass] Onset: 10-02-2024 Episodic Naomy-; endo-; and myocarditis; cardiomyopathy (except that caused by tuberculosis or sexually transmitted disease) (20 sources) Pericardial effusion; Translations: [Pericardial effusion] Onset: 09-25-2024 09-27-2024 Episodic Pleurisy; pneumothorax; pulmonary collapse (1 source) Pyothorax with fistula; Translations: [TEF (tracheoesophageal fistula) (HCC)] Onset: 09-24-2024 Episodic Pulmonary heart disease (20 sources) Pulmonary embolism; Translations: [Multiple subsegmental pulmonary emboli without acute cor pulmonale] Onset: 04-19-2024 04-21-2024 Episodic Residual codes; unclassified (20 sources) At risk of electrolyte imbalance; Translations: [Other specified personal risk factors, not elsewhere classified] Onset: 04-18-2024 04-21-2024 Episodic Residual codes; unclassified (20 sources) Tube feeding diet; Translations: [Other specified health status] Onset: 05-04-2024 05-04-2024 Episodic Residual codes; unclassified (20 sources) Transfusion of blood product refused for synagogue reason; Translations: [Procedure and treatment not carried out because of patient's decision for reasons of belief and group pressure] Onset: 04-29-2019 07-09-2024 Episodic Respiratory failure; insufficiency; arrest (adult) (20 sources) Acute respiratory failure; Translations: [Acute respiratory failure with hypoxia] Onset: 04-22-2024 4 Episodic Shock (20 sources) Shock; Translations: [Shock, unspecified] Onset: 04-22-2024 04-22-2024 Episodic Spondylosis; intervertebral disc disorders; other back problems (20 sources) Cervicalgia; Translations: [Neck pain] Onset: 03-30-2024 07-09-2024 Episodic Syncope (20 sources) Syncope; Translations: [Syncope and collapse] Onset: 09-24-2024 09-25-2024 Episodic Results Test Name Value Interpretation Reference Range Facility [facility] 01-03-2025 [facility] Normal [facility] 12-30-2024 [facility] Normal [facility] CBC W Auto Differential pane l (Bld)on 12-24-2024 Basophils (Bld) [#/Vol] [facility] Basophils/100 WBC (Bld) 0.3 % [facility] Differential cell count method Nom (Bld) Auto [facility] Eosinophils (Bld) [#/Vol] 0.07 10*3/uL [facility] Eosinophils/100 WBC (Bld) 1.2 % [facility] Erythrocyte distribution width (RBC) [Ratio] 19.9 % High 11.5 - 15.0 % [facility] Hematocrit (Bld) [Volume fraction] 39.5 % 36.0 - 46.0 % [facility] Hemoglobin (Bld) [Mass/Vol] 11.7 g/dL 11.5 - 15.5 g/dL [facility] Immature granulocytes (Bld) [#/Vol] [facility] Immature granulocytes/100 WBC (Bld) 0.3 % [facility] Interpretation and review of laboratory results Abnormal [facility] Lymphocytes (Bld) [#/Vol] 0.68 10*3/uL Low [facility] Lymphocytes/100 WBC (Bld) 11.9 % [facility] MCH (RBC) [Entitic mass] 25.4 pg Low 26.0 - 34.0 pg [facility] MCHC (RBC) [Mass/Vol] 29.6 g/dL Low 30.5 - 36.0 g/dL [facility] MCV (RBC) [Entitic vol] 85.7 fL 80.0 - 100.0 fL [facility] Monocytes (Bld) [#/Vol] 0.58 10*3/uL [facility] Monocytes/100 WBC (Bld) 10.1 % [facility] Neutrophils (Bld) [#/Vol] 4.35 10*3/uL [facility] Neutrophils/100 WBC (Bld) 76.2 % [facility] Nucleated RBC (Bld) [#/Vol] NINF [facility] Nucleated RBC/100 WBC (Bld) [Ratio] 0 % /100 WBC [facility] Platelet mean volume (Bld) [Entitic vol] 10.5 fL 9.0 - 12.7 fL [facility] Platelets (Bld) [#/Vol] 266 10*3/uL [facility] RBC (Bld) [#/Vol] 4.61 10*6/uL 3.90 - 5.2 0 m/uL [facility] WBC (Bld) [#/Vol] 5.72 10*3/uL [facility] Basophils (Bld) [#/Vol] 10*3/uL Normal <0.11 [facility] 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: Order Comment: Speci men Type: BLOOD SPECIMENOrdering Facility: [facility] Address: [address] [place] [address] Performed By: #### 5 7021-8 ####[facility] [id number] [place] [address] [place] Basophils/100 WBC (Bld) 0.3 % Normal [facility] 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: Order Comment: Speci men Type: BLOOD SPECIMENOrdering Facility: [facility] Address: [address] [place] [address] Performed By: #### 5 7021-8 ####[facility] [id number] [place] [address] [place] Differential cell count method Nom (Bld) Auto Normal [facility] 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: Order Comment: Speci men Type: BLOOD SPECIMENOrdering Facility: [facility] Address: [address] [place] [address] Performed By: #### 5 7021-8 ####[facility] [id number] [place] [address] [place] Eosinophils (Bld) [#/Vol] 0.07 10*3/uL Normal <0.46 [facility] 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: Order Comment: Speci men Type: BLOOD SPECIMENOrdering Facility: [facility] Address: [address] [place] [address] Performed By: #### 5 7021-8 ####[facility] [id number] [place] [address] [place] Eosinophils/100 WBC (Bld) 1.2 % Normal [facility] 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: Order Comment: Speci men Type: BLOOD SPECIMENOrdering Facility: [facility] Address: [address] [place] [address] Performed By: #### 5 7021-8 ####[facility] [id number] [place] [address] [place] Erythrocyte distribution width (RBC) [Ratio] 19.9 % High 11.5-15.0 [facility] 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: Order Comment: Speci men Type: BLOOD SPECIMENOrdering Facility: [facility] Address: [address] [place] [address] Performed By: #### 5 7021-8 ####[facility] [id number] [place] [address] [place] Hematocrit (Bld) [Volume fraction] 39.5 % Normal 36.0-46.0 [facility] 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: Order Comment: Speci men Type: BLOOD SPECIMENOrdering Facility: [facility] Address: [address] [place] [address] Performed By: #### 5 7021-8 ####[facility] [id number] [place] [address] [place] Hemoglobin (Bld) [Mass/Vol] 11.7 g/dL Normal 11.5-15.5 [facility] 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: Order Comment: Speci men Type: BLOOD SPECIMENOrdering Facility: [facility] Address: [address] [place] [address] Performed By: #### 5 7021-8 ####[facility] [place] [id number] [place] [address] [place] Immature granulocytes (Bld) [#/Vol] 10*3/uL Normal <0.10 [facility] 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: Order Comment: Speci men Type: BLOOD SPECIMENOrdering Facility: [facility] Address: [address] [place] [address] Performed By: #### 5 7021-8 ####[facility] [place] [id number] [place] [address] [place] Immature granulocytes/100 WBC (Bld) 0.3 % Normal [facility] 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: Order Comment: Speci men Type: BLOOD SPECIMENOrdering Facility: [facility] Address: [address] [place] [address] Performed By: #### 5 7021-8 ####[facility] [place] [id number] [place] [address] [place] Lymphocytes (Bld) [#/Vol] 0.68 10*3/uL Low 1.00-4.00 [facility] 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: Order Comment: Speci men Type: BLOOD SPECIMENOrdering Facility: [facility] Address: [address] [place] [address] Performed By: #### 5 7021-8 ####[facility] [id number] [place] [address] [place] Lymphocytes/100 WBC (Bld) 11.9 % Normal [facility] 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: Order Comment: Speci men Type: BLOOD SPECIMENOrdering Facility: [facility] Address: [address] [place] [address] Performed By: #### 5 7021-8 ####[facility] [place] [id number] [place] [address] [place] MCH (RBC) [Entitic mass] 25.4 pg Low 26.0-34.0 [facility] 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: Order Comment: Speci men Type: BLOOD SPECIMENOrdering Facility: [facility] Address: [address] [place] [address] Performed By: #### 5 7021-8 ####[facility] [id number] [place] [address] [place] MCHC (RBC) [Mass/Vol] 29.6 g/dL Low 30.5-36.0 [facility] 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: Order Comment: Speci men Type: BLOOD SPECIMENOrdering Facility: [facility] Address: [address] [place] [address] Performed By: #### 5 7021-8 ####[facility] [id number] [place] [address] [place] MCV (RBC) [Entitic vol] 85.7 fL Normal 80.0-100.0 [facility] 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: Order Comment: Speci men Type: BLOOD SPECIMENOrdering Facility: [facility] Address: [address] [place] [address] Performed By: #### 5 7021-8 ####[facility] [id number] [place] [address] [place] Monocytes (Bld) [#/Vol] 0.58 10*3/uL Normal <0.87 [facility] 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: Order Comment: Speci men Type: BLOOD SPECIMENOrdering Facility: [facility] Address: [address] [place] [address] Performed By: #### 5 7021-8 ####[facility] [id number] [place] [address] [place] Monocytes/100 WBC (Bld) 10.1 % Normal [facility] 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: Order Comment: Speci men Type: BLOOD SPECIMENOrdering Facility: [facility] Address: [address] [place] [address] Performed By: #### 5 7021-8 ####[facility] [id number] [place] [address] [place] Neutrophils (Bld) [#/Vol] 4.35 10*3/uL Normal 1.45-7.50 [facility] 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: Order Comment: Speci men Type: BLOOD SPECIMENOrdering Facility: [facility] Address: [address] [place] [address] Performed By: #### 5 7021-8 ####[facility] [id number] [place] [address] [place] Neutrophils/100 WBC (Bld) 76.2 % Normal [facility] 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: Order Comment: Speci men Type: BLOOD SPECIMENOrdering Facility: [facility] Address: [address] [place] [address] Performed By: #### 5 7021-8 ####[facility] [id number] [place] [address] [place] Nucleated RBC (Bld) [#/Vol] 10*3/uL Normal <0.01 [facility] 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: Order Comment: Speci men Type: BLOOD SPECIMENOrdering Facility: [facility] Address: [address] [place] [address] Performed By: #### 5 7021-8 ####[facility] [id number] [place] [address] [place] Nucleated RBC/100 WBC (Bld) [Ratio] 0.0 /100 WBC Normal [facility] 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: Order Comment: Speci men Type: BLOOD SPECIMENOrdering Facility: [facility] Address: [address] [place] [address] Performed By: #### 5 7021-8 ####[facility] [id number] [place] [address] [place] Platelet mean volume (Bld) [Entitic vol] 10.5 fL Normal 9.0-12.7 [facility] 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: Order Comment: Speci men Type: BLOOD SPECIMENOrdering Facility: [facility] Address: [address] [place] [address] Performed By: #### 5 7021-8 ####[facility] [id number] [place] [address] [place] Platelets (Bld) [#/Vol] 266 10*3/uL Normal 150-400 [facility] 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: Order Comment: Speci men Type: BLOOD SPECIMENOrdering Facility: [facility] Address: [address] [place] [address] Performed By: #### 5 7021-8 ####[facility] [place] [id number] [place] [address] [place] RBC (Bld) [#/Vol] 4.61 10*6/uL Normal 3.90-5.20 [facility] 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: Order Comment: Speci men Type: BLOOD SPECIMENOrdering Facility: [facility] Address: [address] [place] [address] Performed By: #### 5 7021-8 ####[facility] [id number] [place] [address] [place] WBC (Bld) [#/Vol] 5.72 10*3/uL Normal 3.70-11.00 [facility] 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: Order Comment: Speci men Type: BLOOD SPECIMENOrdering Facility: [facility] Address: [address] [place] [address] Performed By: #### 5 7021-8 ####[facility] [id number] [place] [address] [place] Comprehensive metabolic 2000 panelon 12-24-2024 Albumin [Mass/Vol] 3.7 g/dL Low 3.9 - 4.9 g/dL [facility] ALP [Catalytic activity/Vol] 254 U/L High 34 - 123 U/L [facility] ALT [Catalytic activity/Vol] 77 U/L High 7 - 38 U/L [facility] Anion gap [Moles/Vol] 8 mmol/L 8 - 15 mmol/L [facility] AST [Catalytic activity/Vol] 54 U/L High 13 - 35 U/L [facility] Bilirubin [Mass/Vol] 0.8 mg/dL 0.2 - 1 .3 mg/dL [facility] Calcium [Mass/Vol] 9.3 mg/dL 8.5 - 10. 2 mg/dL [facility] Chloride [Moles/Vol] 104 mmol/L 98 - 10 7 mmol/L [facility] CO2 [Moles/Vol] 27 mmol/L 22 - 30 mmol/L [facility] Creatinine [Mass/Vol] 0.45 mg/dL Low 0.58 - 0.96 mg/dL [facility] GFR/1.73 sq M.predicted among non-blacks MDRD (S/P/Bld) [Vol rate/Area] 125 mL/min/{1.73_m2} - PINF [facility] 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: Estimated Glomerular Filtration Rate (eGFR) is calculated using the 2020 CKD-EPI creatinine equation. This equation utilizes serum creatinine, sex, and age as parameters. The creatinine assay has traceable calibration to isotope dilution-mass spectrometry. Refer to KDIGO guidelines for clinical interpretation. In patients with unstable renal function, e.g. those with acute kidney injury, the eGFR may not accurately reflect actual GFR. Glucose [Mass/Vol] 117 mg/dL High 74 - 99 mg/dL [facility] 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: The [place] Diab[employer] s Association (ADA) provides guidance for cutoff values for fasting glucose and random glucose. The ADA defines fasting as no caloric intake for at least 8 hours. Fasting plasma glucose results between 100 to 125 mg/dL indicate increased risk for diabetes (prediabetes). Fasting plasma glucose results greater than or equal to 126 mg/dL meet the criteria for diagnosis of diabetes. In the absence of unequivocal hyperglycemia, results should be confirmed by repeat testing. In a patient with classic symptoms of hyperglycemia or hyperglycemic crisis, random plasma glucose results greater than or equal to 200 mg/dL meet the criteria for diagnosis of diabetes. Reference: Standards of Medical Care in Diabetes 2016, [place] [employer]. Diabetes Care. 2016.39(Suppl 1). Interpretation and review of laboratory results Abnormal [facility] Potassium [Moles/Vol] 4.3 mmol/L 3.7 - 5.1 mmol/L [facility] Protein [Mass/Vol] 6.9 g/dL 6.3 - 8.0 g/dL [facility] Sodium [Moles/Vol] 139 mmol/L 136 - 144 mmol/L [facility] Urea nitrogen [Mass/Vol] 14 mg/dL 7 - 21 mg/dL [facility] Albumin [Mass/Vol] 3.7 g/dL Low 3.9-4.9 [facility] 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: Order Comment: Speci men Type: BLOOD SPECIMENOrdering Facility: [facility] Address: [address] [place] [address] Performed By: #### 2 4323-8 ####[facility] LABCLIA [id number] [place] [address] [place] ALP [Catalytic activity/Vol] 254 U/L High 34-123 [facility] 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: Order Comment: Speci men Type: BLOOD SPECIMENOrdering Facility: [facility] Address: [address] [place] [address] Performed By: #### 2 4323-8 ####[facility] LABCLIA [id number] [place] [address] [place] ALT [Catalytic activity/Vol] 77 U/L High 7-38 [facility] 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: Order Comment: Speci men Type: BLOOD SPECIMENOrdering Facility: [facility] Address: [address] [place] [address] Performed By: #### 2 4323-8 ####[facility] LABCLIA [id number] [place] [address] [place] Anion gap [Moles/Vol] 8 mmol/L Normal 8-15 [facility] 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: Order Comment: Speci men Type: BLOOD SPECIMENOrdering Facility: [facility] Address: [address] [place], [place] [id number] Performed By: #### 2 4323-8 ####[facility] LABCLIA [id number] [address] [address] [place] AST [Catalytic activity/Vol] 54 U/L High 13-35 [facility] 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: Order Comment: Speci men Type: BLOOD SPECIMENOrdering Facility: [facility] Address: [address] [place] [address] Performed By: #### 2 4323-8 ####[facility] LABCLIA [id number] [place] [address] [place] Bilirubin [Mass/Vol] 0.8 mg/dL Normal 0.2-1.3 [facility] 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: Order Comment: Speci men Type: BLOOD SPECIMENOrdering Facility: [facility] Address: [address] [place] [address] Performed By: #### 2 4323-8 ####[facility] LABCLIA [id number] [place] [address] [place] Calcium [Mass/Vol] 9.3 mg/dL Normal 8.5-10.2 [facility] 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: Order Comment: Speci men Type: BLOOD SPECIMENOrdering Facility: [facility] Address: [address] [place] [address] Performed By: #### 2 4323-8 ####[facility] LABCLIA [id number] [address] [address] [place] Chloride [Moles/Vol] 104 mmol/L Normal 98-107 [facility] 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: Order Comment: Speci men Type: BLOOD SPECIMENOrdering Facility: [facility] Address: [address] [place], [place] [address] Performed By: #### 2 4323-8 ####[facility] LABCLIA [id number] [place] [id number] [place] CO2 [Moles/Vol] 27 mmol/L Normal 22-30 [facility] 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: Order Comment: Speci patricia Type: BLOOD SPECIMENOrdering Facility: [facility] Address: [address] [place] [address] Performed By: #### 2 4323-8 ####[facility] LABIA [id number] [address] [place] Creatinine [Mass/Vol] 0.45 mg/dL Low 0.58-0.96 [facility] 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: Order Comment: Pingi men Type: BLOOD SPECIMENOrdering Facility: [facility] Address: [address] [place] [address] Performed By: #### 2 4323-8 ####[facility] LABIA [id number] [address] STATES [place] [facility] Creatinine and Glomerular filtration rate.predicted panel (S/P/Bld) 125 mL/min/1.73m??? Normal >=60 [facility] 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: Order Comment: Pingi men Type: BLOOD SPECIMENOrdering Facility: [facility] Address: [address] [place] [address] Result Comment: Adina mated Glomerular Filtration Rate (eGFR) is calculated using the 2020 CKD-EPI creatinine equation. This equation utilizes serum creatinine, sex, and age as parameters. The creatinine assay has traceable calibration to isotope dilution-mass spectrometry. Refer to KDIGO guidelines for clinical interpretation. In patients with unstable renal function, e.g. those with acute kidney injury, the eGFR may not accurately reflect actual GFR. Performed By: #### 2 4323-8 ####[facility] LABCLIA [id number] [place] [id number] [place] Glucose [Mass/Vol] 117 mg/dL High 74-99 [facility] 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: Order Comment: Pingi men Type: BLOOD SPECIMENOrdering Facility: [facility] Address: [address] [place] [id number] Result Comment: The [place] Diabetes Association (ADA) provides guidance for cutoff values for fasting glucose and random glucose. The ADA defines fasting as no caloric intake for at least 8 hours. Fasting plasma glucose results between 100 to 125 mg/dL indicate increased risk for diabetes (prediabetes).Fasting plasma glucose results greater than or equal to 126 mg/dL meet the criteria for diagnosis of diabetes. In the absence of unequivocal hyperglycemia, results should be confirmed by repeat testing. In a patient with classic symptoms of hyperglycemia or hyperglycemic crisis, random plasma glucose results greater than or equal to 200 mg/dL meet the criteria for diagnosis of diabetes.Reference: Standards of Medical Care in Diabetes 2016, [place] [employer]. Diabetes Care. 2016.39(Suppl 1). Performed By: #### 2 4323-8 ####[facility] LABIA [id number] [place] [address] [place] Potassium [Moles/Vol] 4.3 mmol/L Normal 3.7-5.1 [facility] 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: Order Comment: Speci men Type: BLOOD SPECIMENOrdering Facility: [facility] Address: [address] [place] [address] Performed By: #### 2 4323-8 ####[facility] LABIA [id number] [place] [id number] [place] Protein [Mass/Vol] 6.9 g/dL Normal 6.3-8.0 [facility] 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: Order Comment: Speci men Type: BLOOD SPECIMENOrdering Facility: [facility] Address: [address] [place] [id number] Performed By: #### 2 4323-8 ####[facility] LABIA [id number] [place] [id number] [place] Sodium [Moles/Vol] 139 mmol/L Normal 136-144 [facility] 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: Order Comment: Speci men Type: BLOOD SPECIMENOrdering Facility: [facility] Address: [address] [place] [address] Performed By: #### 2 4323-8 ####[facility] LABCLIA [id number] [place] [address] [place] Urea nitrogen [Mass/Vol] 14 mg/dL Normal 7-21 [facility] 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: Order Comment: Speci men Type: BLOOD SPECIMENOrdering Facility: [facility] Address: [address] [place] [address] Performed By: #### 2 4323-8 ####[facility] LABCLIA [id number] [place] [address] [place] CNPNon 12-20-2024 CNPN Normal [facility] CNPNon 12-15-2024 CNPN Normal [facility] ALL CBC WITH AUTO DIFFon Erythrocyte distribution width (RBC) [Ratio] 22 % High 11.0 - 15.0 % [facility] Hematocrit (Bld) [Volume fraction] 37.5 % 36.0 - 48.0 % [facility] Hemoglobin (Bld) [Mass/Vol] 11.7 g/dL Low 12.0 - 16.0 g/dL [facility] Interpretation and review of laboratory results Abnormal [facility] MCH (RBC) [Entitic mass] 25.7 pg Low 26.7 - 34.0 pg [facility] MCHC (RBC) [Mass/Vol] 31.2 g/dL 29.9 - 35.2 g/dL [facility] MCV (RBC) [Entitic vol] 82.4 fL 81.0 - 99.0 fL [facility] Platelet mean volume (Bld) [Entitic vol] 11.1 fL 9.5 - 13.5 fL [facility] TBH PLT 267 [facility] TB RBC 4.55 [facility] TB WBC 4.5 [facility] CNPNon 12-03-2024 CNPN Normal [facility] ALL CBC WITH AUTO DIFFon Erythrocyte distribution width (RBC) [Ratio] 21.9 % High 11.0 - 15.0 % [facility] Hematocrit (Bld) [Volume fraction] 36.4 % 36.0 - 48.0 % [facility] Hemoglobin (Bld) [Mass/Vol] 11.1 g/dL Low 12.0 - 16.0 g/dL [facility] Interpretation and review of laboratory results Abnormal [facility] MCH (RBC) [Entitic mass] 25.3 pg Low 26.7 - 34.0 pg [facility] MCHC (RBC) [Mass/Vol] 30.5 g/dL 29.9 - 35.2 g/dL [facility] MCV (RBC) [Entitic vol] 83.1 fL 81.0 - 99.0 fL [facility] Platelet mean volume (Bld) [Entitic vol] 11.1 fL 9.5 - 13.5 fL [facility] TBH PLT 251 [facility] TBH RBC 4.38 [facility] TBH WBC 3.2 Low [facility] CNCNPATEDon 11-29-2024 CNCNPATED Normal [facility] BRIEF OP NOTon 11-25-2024 BRIEF OP NOT Normal [facility] CNPNon 11-25-2024 CNPN Normal [facility] IR LP FOR CHEMO OR BACLAFINE on 11-25-2024 IR LP FOR CHEMO OR BACLAFINE Normal [facility] NURSING PROGon 11-25-2024 NURSING PROG Normal [facility] ALL CBC WITH AUTO DIFFon BASOPHILS ABSOLUTE AUTO 0 [facility] Basophils/100 WBC (Bld) 0.4 % 0.2 - 2.0 % [facility] Eosinophils/100 WBC (Bld) 2.6 % 0.9 - 7.0 % [facility] Erythrocyte distribution width (RBC) [Ratio] 20.2 % High 11.0 - 15.0 % [facility] Hematocrit (Bld) [Volume fraction] 42.3 % 36.0 - 48.0 % [facility] Hemoglobin (Bld) [Mass/Vol] 12 g/dL 12.0 - 16.0 g/dL [facility] IMMATURE GRANULOCYTES ABS AUTO 0.01 [facility] Immature granulocytes/100 WBC (Bld) 0.2 % 0.0 - 0.5 % [facility] Interpretation and review of laboratory results Abnormal [facility] LYMPHOCYTES ABSOLUTE AUTO 0.7 Low [facility] Lymphocytes/100 WBC (Bld) 15.9 % Low 20.5 - 60.0 % [facility] MCH (RBC) [Entitic mass] 24.4 pg Low 26.7 - 34.0 pg [facility] MCHC (RBC) [Mass/Vol] 28.4 g/dL Low 29.9 - 35.2 g/dL [facility] MCV (RBC) [Entitic vol] 86.2 fL 81.0 - 99.0 fL [facility] MONOCYTES ABSOLUTE AUTO 0.4 [facility] Monocytes/100 WBC (Bld) 9 % 1.7 - 12.0 % [facility] NEUTROPHILS ABSOLUTE AUTO 3.3 [facility] Neutrophils/100 WBC (Bld) 71.9 % 43.0 - 75.0 % [facility] Platelet mean volume (Bld) [Entitic vol] 11.2 fL 9.5 - 13.5 fL [facility] TBH EO # 0.1 [facility] TBH PLT 308 [facility] RBC 4.91 [facility] 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: 2+ ANISOCYTOSIS 1+ HYPOCHROMIA TB WBC 4.6 [facility] CNOVon 11-24-2024 CNOV Normal [facility] CNPNon 11-18-2024 CNPN Normal [facility] MR Heart cine for blood flow velocity mappingon 11-18-2024 * * *Final Report* * * DATE OF EXAM: Nov 18 2024 8:41AM [facility] 0704 - MRI CARDIAC VELOCITY FLOW MAP / PROCEDURE REASON: multiple diagnoses * * * * Physician Interpretation * * * * Cardiac MRI Report: [facility] Date of service: 11/18/2024 8:07:17 AM Linked orders:[id number] CARDIAC VELOCITY FLOW MAP;[id number] CARD MORPH FUNC WO/W IVCON. Ordering physician: MARCELINA RANGEL Technologist: MEAGHAN YOUNG Fellow: Nataliya Lawton MD and Valeriano Spivey MD Interpreting physician: Trinity Matson MD PATIENT: Name: SONYA MEYER Age: 39 years Gender: F MRI Scanner: Siemens Elba 1.5T 39 year old female with past medical history of relapsed T-cell precursor lymphoblastic leukemia/lymphoma, left jugular vein thrombosis, tracheoesophageal fistula who presents for evaluation of cardiac amyloidosis. This study is performed to quantify left/right ventricular size and function, valvular function, and to perform tissue characterization for the assessment of myocardial fibrosis/edema/infiltrati ve disease. MRI Techniques: * Turbo spin echo and gradient echo imaging for anatomic definition. * Dynamic cine imaging (SSFP and GRE) for cardiac chamber and wall-motion analysis, and valvular analysis. * Flow quantification sequences for hemodynamics in 2 locations: aortic root and mid-ascending aorta. * Delayed gadolinium enhancement analysis after injection of gadolinium-chelate. * T2STIR/ T2 Fat Saturated Imaging. * T1 mapping. Gadolinium Agent: 11 cc of Gadavist was administered. Baseline vital signs: 100 bpm Height: 152.00 cm BSA: 1.77 m Weight: 74.00 kg BMI: 32.0 kg/m FINDINGS: Extracardiac findings: The chest wall appears abnormal. The mediastinum is abnormal. - Small nodule measuring 1.2 cm in the right breast with adjacent soft tissue changes in patient with history of prior biopsy. -Hypointense mass in the superior and anterior mediastinum. No significant adenopathy is identified. Limited imaging of the lungs reveals no gross abnormalities. Cardiac structures: The cardiac chambers demonstrate normal atrioventricular and normal ventriculoarterial concordance. Systemic and pulmonary venous return is normal. Situs solitus. Aorta: The thoracic aorta is normal in course, caliber and contour. Mid ascendin.3 cm Pulmonary Arteries: Pulmonary Arteries: Normal Measurements: - Main pulmonary artery diameter: 2.2 cm Left Atrium: The left atrium is normal in size. LA volume: 28 ml (normal range: 28-100 ml) LA volume index: 16 ml/m (normal range: 17-54 ml/m ) LA area (4ch): 12 cm LA area (2ch): 12 cm Right Atrium: The right atrium is normal in size. RA volume: 30 ml (normal range: 24-81 ml) RA volume index: 17 ml/m (normal range: 18-58 ml/m ) RA area (4ch): 13 cm Left Ventricle: The left ventricle is normal in size. Left ventricular systolic function is low normal. value (normal range) indexed (normal range) EDV: 105 ml (70-155 ml) EDVi: 59 ml/m (45-93 ml/m ) ESV: 49 ml (15-64 ml) ESVi: 28 ml/m (10-38 ml/m ) SV: 56 ml (47-99 ml) SVi: 32 ml/m (30-59 ml/m ) EF: 53 % (52-79 %) CO: 5.6 l/min (3.0-6.9 l/min) CI: 3.1 l/min/m (1.9-4.0 ml/min/m ) mass: 82 g (43-103 g) LVMi: 46 g/m (30-59 g/m ) There is no LV hypertrophy. LV segment wall thickness: basal anteroseptum: 0.7 cm basal inferolateral: 0.7 cm Edema-weighted imaging: There is no evidence of myocardial edema. All segments are normal. Wall Motion: There are no wall motion abnormalities. Delayed Enhancement: There is <25% delayed gadolinium enhancement of the basal inferoseptal segment. All remaining scored segments are normal. Delayed-enhancement imaging reveals non-specific RV insertion point late gadolinium enhancement. Constellation of findings could be suggestive of No significant myocardial disease. Right Ventricle: The right ventricle is normal in size. Right ventricular systolic function is normal. value (normal range) indexed (normal range) EDV: 89 ml (68-176 ml) EDVi: 51 ml/m (48-104 ml/m ) ESV: 37 ml (20-80 ml) ESVi: 21 ml/m (13-48 ml/m ) SV: 52 ml (39-109 ml) SVi: 29 ml/m (29-66 ml/m ) EF: 58 % (46-74 %) CO: 5.2 l/min (2.4-6.4 l/min) CI: 2.9 l/min/m (1.6-4.0 l/min/m ) T1 / T2 / ECV T2 * : +------+ +----- -+-------+ T1 pre (ms) +/- ECV (%) +------+ +----- -+-------+ Base 1058.48 56.99 +------+ +----- -+-------+ Mid 1040.12 60.11 +------+ +----- -+-------+ Blachly 1051.91 103.12 +------+ +----- -+-------+ Global 1050.50 73.23 32.00 +------+ +----- -+-------+ Normal value (more content not included)... DIVISION OF RADIOLOGY Provider, [facility] - 11/18/2024 * * *Final Report* * * DATE OF EXAM: Nov 18 2024 8:41AM [facility] 0704 - MRI CARDIAC VELOCITY FLOW MAP / PROCEDURE REASON: multiple diagnoses * * * * Physician Interpretation * * * * Cardiac MRI Report: [facility] Date of service: 11/18/2024 8:07:17 AM Linked orders:[id number] CARDIAC VELOCITY FLOW MAP;[id number] CARD MORPH FUNC WO/W IVCON. Ordering physician: MARCELINA RANGEL Technologist: MEAGHAN YOUNG Fellow: Nataliya Lawton MD and Valeriano Spivey MD Interpreting physician: Trinity Matson MD PATIENT: Name: SONYA MEYER Age: 39 years Gender: F MRI Scanner: Siemens Elba 1.5T 39 year old female with past medical history of relapsed T-cell precursor lymphoblastic leukemia/lymphoma, left jugular vein thrombosis, tracheoesophageal fistula who presents for evaluation of cardiac amyloidosis. This study is performed to quantify left/right ventricular size and function, valvular function, and to perform tissue characterization for the assessment of myocardial fibrosis/edema/infiltrati ve disease. MRI Techniques: * Turbo spin echo and gradient echo imaging for anatomic definition. * Dynamic cine imaging (SSFP and GRE) for cardiac chamber and wall-motion analysis, and valvular analysis. * Flow quantification sequences for hemodynamics in 2 locations: aortic root and mid-ascending aorta. * Delayed gadolinium enhancement analysis after injection of gadolinium-chelate. * T2STIR/ T2 Fat Saturated Imaging. * T1 mapping. Gadolinium Agent: 11 cc of Gadavist was administered. Baseline vital signs: 100 bpm Height: 152.00 cm BSA: 1.77 m Weight: 74.00 kg BMI: 32.0 kg/m FINDINGS: Extracardiac findings: The chest wall appears abnormal. The mediastinum is abnormal. - Small nodule measuring 1.2 cm in the right breast with adjacent soft tissue changes in patient with history of prior biopsy. -Hypointense mass in the superior and anterior mediastinum. No significant adenopathy is identified. Limited imaging of the lungs reveals no gross abnormalities. Cardiac structures: The cardiac chambers demonstrate normal atrioventricular and normal ventriculoarterial concordance. Systemic and pulmonary venous return is normal. Situs solitus. Aorta: The thoracic aorta is normal in course, caliber and contour. Mid ascendin.3 cm Pulmonary Arteries: Pulmonary Arteries: Normal Measurements: - Main pulmonary artery diameter: 2.2 cm Left Atrium: The left atrium is normal in size. LA volume: 28 ml (normal range: 28-100 ml) LA volume index: 16 ml/m (normal range: 17-54 ml/m ) LA area (4ch): 12 cm LA area (2ch): 12 cm Right Atrium: The right atrium is normal in size. RA volume: 30 ml (normal range: 24-81 ml) RA volume index: 17 ml/m (normal range: 18-58 ml/m ) RA area (4ch): 13 cm Left Ventricle: The left ventricle is normal in size. Left ventricular systolic function is low normal. value (normal range) indexed (normal range) EDV: 105 ml (70-155 ml) EDVi: 59 ml/m (45-93 ml/m ) ESV: 49 ml (15-64 ml) ESVi: 28 ml/m (10-38 ml/m ) SV: 56 ml (47-99 ml) SVi: 32 ml/m (30-59 ml/m ) EF: 53 % (52-79 %) CO: 5.6 l/min (3.0-6.9 l/min) CI: 3.1 l/min/m (1.9-4.0 ml/min/m ) mass: 82 g (43-103 g) LVMi: 46 g/m (30-59 g/m ) There is no LV hypertrophy. LV segment wall thickness: basal anteroseptum: 0.7 cm basal inferolateral: 0.7 cm Edema-weighted imaging: There is no evidence of myocardial edema. All segments are normal. Wall Motion: There are no wall motion abnormalities. Delayed Enhancement: There is <25% delayed gadolinium enhancement of the basal inferoseptal segment. All remaining scored segments are normal. Delayed-enhancement imaging reveals non-specific RV insertion point late gadolinium enhancement. Constellation of findings could be suggestive of No significant myocardial disease. Right Ventricle: The right ventricle is normal in size. Right ventricular systolic function is normal. value (normal range) indexed (normal range) EDV: 89 ml (68-176 ml) EDVi: 51 ml/m (48-104 ml/m ) ESV: 37 ml (20-80 ml) ESVi: 21 ml/m (13-48 ml/m ) SV: 52 ml (39-109 ml) SVi: 29 ml/m (29-66 ml/m ) EF: 58 % (46-74 %) CO: 5.2 l/min (2.4-6.4 l/min) CI: 2.9 l/min/m (1.6-4.0 l/min/m ) T1 / T2 / ECV T2 * : +------+ +----- -+-------+ T1 pre (ms) +/- ECV (%) +------+ +----- -+-------+ Base 1058.48 56.99 +------+ +----- -+-------+ Mid 1040.12 60.11 +------+ +----- -+-------+ Blachly 1051.91 103.12 +------+ +----- -+-------+ Global 1050.50 73.23 32.00 +------+ +----- -+-------+ Normal values based on healthy individuals: T1: 950 +/- 21 ms; ECV: 26 +/- 4% Aortic Valve: Ther (more content not included)... 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 Ordering physician: MARCELINA RANGEL Technologist: MEAGHAN YOUNG Fellow: Nataliya Lawton MD and Valeriano Spivey MD Interpreting physician: Trinity Matson MD PATIENT: Name: SONYA MEYER Age: 39 years Gender: F MRI Scanner: Siemens Elba 1.5T 39 year old female with past medical history of relapsed T-cell precursor lymphoblastic leukemia/lymphoma, left jugular vein thrombosis, tracheoesophageal fistula who presents for evaluation of cardiac amyloidosis. This study is performed to quantify left/right ventricular size and function, valvular function, and to perform tissue characterization for the assessment of myocardial fibrosis/edema/infiltrati ve disease. MRI Techniques: * Turbo spin echo and gradient echo imaging for anatomic definition. * Dynamic cine imaging (SSFP and GRE) for cardiac chamber and wall-motion analysis, and valvular analysis. * Flow quantification sequences for hemodynamics in 2 locations: aortic root and mid-ascending aorta. * Delayed gadolinium enhancement analysis after injection of gadolinium-chelate. * T2STIR/ T2 Fat Saturated Imaging. * T1 mapping. Gadolinium Agent: 11 cc of Gadavist was administered. Baseline vital signs: 100 bpm Height: 152.00 cm BSA: 1.77 m? Weight: 74.00 kg BMI: 32.0 kg/m? FINDINGS: Extracardiac findings: The chest wall appears abnormal. The mediastinum is abnormal. - Small nodule measuring 1.2 cm in the right breast with adjacent soft tissue changes in patient with history of prior biopsy. -Hypointense mass in the superior and anterior mediastinum. No significant adenopathy is identified. Limited imaging of the lungs reveals no gross abnormalities. Cardiac structures: The cardiac chambers demonstrate normal atrioventricular and normal ventriculoarterial concordance. Systemic and pulmonary venous return is normal. Situs solitus. Aorta: The thoracic aorta is normal in course, caliber and contour. Mid ascendin.3 cm Pulmonary Arteries: Pulmonary Arteries: Normal Measurements: - Main pulmonary artery diameter: 2.2 cm Left Atrium: The left atrium is normal in size. LA volume: 28 ml (normal range: 28-100 ml) LA volume index: 16 ml/m? (normal range: 17-54 ml/m?) LA area (4ch): 12 cm? LA area (2ch): 12 cm? Right Atrium: The right atrium is normal in size. RA volume: 30 ml (normal range: 24-81 ml) RA volume index: 17 ml/m? (normal range: 18-58 ml/m?) RA area (4ch): 13 cm? Left Ventricle: The left ventricle is normal in size. Left ventricular systolic function is low normal. value (normal range) indexed (normal range) EDV: 105 ml (70-155 ml) EDVi: 59 ml/m? (45-93 ml/m?) ESV: 49 ml (15-64 ml) ESVi: 28 ml/m? (10-38 ml/m?) SV: 56 ml (47-99 ml) SVi: 32 ml/m? (30-59 ml/m?) EF: 53 % (52-79 %) CO: 5.6 l/min (3.0-6.9 l/min) CI: 3.1 l/min/m? (1.9-4.0 ml/min/m?) mass: 82 g (43-103 g) LVMi: 46 g/m? (30-59 g/m?) There is no LV hypertrophy. LV segment wall thickness: basal anteroseptum: 0.7 cm basal inferolateral: 0.7 cm Edema-weighted imaging: There is no evidence of myocardial edema. All segments are normal. Wall Motion: There are no wall motion abnormalities. Delayed Enhancement: There is <25% delayed gadolinium enhancement of the basal inferoseptal segment. All remaining scored segments are normal. Delayed-enhancement imaging reveals non-specific RV insertion point late gadolinium enhancement. Constellation of findings could be suggestive of No significant myocardial disease. Right Ventricle: The right ventricle is normal in size. Right ventricular systolic function is normal. value (normal range) indexed (normal range) EDV: 89 ml (68-176 ml) EDVi: 51 ml/m? (48-104 ml/m?) ESV: 37 ml (20-80 ml) ESVi: 21 ml/m? (13-48 ml/m?) SV: 52 ml (39-109 ml) SVi: 29 ml/m? (29-66 ml/m?) EF: 58 % (46-74 %) CO: 5.2 l/min (2.4-6.4 l/min) CI: 2.9 l/min/m? (1.6-4.0 l/min/m?) T1 / T2 / ECV T2 * : +------+ +----- -+-------+ T1 pre (ms) +/- ECV (%) +------+ +----- -+-------+ Base 1058.48 56.99 +------+ +----- -+-------+ Mid 1040.12 60.11 +------+ +----- -+-------+ Blachly 1051.91 103.12 +------+ +----- -+-------+ Global 1050.50 73.23 32.00 +------+ + (more content not included)... 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 Ordering physician: MARCELINA RANGEL Technologist: MEAGHAN YOUNG Fellow: Nataliya Lawton MD and Valeriano Spivey MD Interpreting physician: Trinity Matson MD PATIENT: Name: SONYA MEYER Age: 39 years Gender: F MRI Scanner: Siemens Elba 1.5T 39 year old female with past medical history of relapsed T-cell precursor lymphoblastic leukemia/lymphoma, left jugular vein thrombosis, tracheoesophageal fistula who presents for evaluation of cardiac amyloidosis. This study is performed to quantify left/right ventricular size and function, valvular function, and to perform tissue characterization for the assessment of myocardial fibrosis/edema/infiltrati ve disease. MRI Techniques: * Turbo spin echo and gradient echo imaging for anatomic definition. * Dynamic cine imaging (SSFP and GRE) for cardiac chamber and wall-motion analysis, and valvular analysis. * Flow quantification sequences for hemodynamics in 2 locations: aortic root and mid-ascending aorta. * Delayed gadolinium enhancement analysis after injection of gadolinium-chelate. * T2STIR/ T2 Fat Saturated Imaging. * T1 mapping. Gadolinium Agent: 11 cc of Gadavist was administered. Baseline vital signs: 100 bpm Height: 152.00 cm BSA: 1.77 m? Weight: 74.00 kg BMI: 32.0 kg/m? FINDINGS: Extracardiac findings: The chest wall appears abnormal. The mediastinum is abnormal. - Small nodule measuring 1.2 cm in the right breast with adjacent soft tissue changes in patient with history of prior biopsy. -Hypointense mass in the superior and anterior mediastinum. No significant adenopathy is identified. Limited imaging of the lungs reveals no gross abnormalities. Cardiac structures: The cardiac chambers demonstrate normal atrioventricular and normal ventriculoarterial concordance. Systemic and pulmonary venous return is normal. Situs solitus. Aorta: The thoracic aorta is normal in course, caliber and contour. Mid ascendin.3 cm Pulmonary Arteries: Pulmonary Arteries: Normal Measurements: - Main pulmonary artery diameter: 2.2 cm Left Atrium: The left atrium is normal in size. LA volume: 28 ml (normal range: 28-100 ml) LA volume index: 16 ml/m? (normal range: 17-54 ml/m?) LA area (4ch): 12 cm? LA area (2ch): 12 cm? Right Atrium: The right atrium is normal in size. RA volume: 30 ml (normal range: 24-81 ml) RA volume index: 17 ml/m? (normal range: 18-58 ml/m?) RA area (4ch): 13 cm? Left Ventricle: The left ventricle is normal in size. Left ventricular systolic function is low normal. value (normal range) indexed (normal range) EDV: 105 ml (70-155 ml) EDVi: 59 ml/m? (45-93 ml/m?) ESV: 49 ml (15-64 ml) ESVi: 28 ml/m? (10-38 ml/m?) SV: 56 ml (47-99 ml) SVi: 32 ml/m? (30-59 ml/m?) EF: 53 % (52-79 %) CO: 5.6 l/min (3.0-6.9 l/min) CI: 3.1 l/min/m? (1.9-4.0 ml/min/m?) mass: 82 g (43-103 g) LVMi: 46 g/m? (30-59 g/m?) There is no LV hypertrophy. LV segment wall thickness: basal anteroseptum: 0.7 cm basal inferolateral: 0.7 cm Edema-weighted imaging: There is no evidence of myocardial edema. All segments are normal. Wall Motion: There are no wall motion abnormalities. Delayed Enhancement: There is <25% delayed gadolinium enhancement of the basal inferoseptal segment. All remaining scored segments are normal. Delayed-enhancement imaging reveals non-specific RV insertion point late gadolinium enhancement. Constellation of findings could be suggestive of No significant myocardial disease. Right Ventricle: The right ventricle is normal in size. Right ventricular systolic function is normal. value (normal range) indexed (normal range) EDV: 89 ml (68-176 ml) EDVi: 51 ml/m? (48-104 ml/m?) ESV: 37 ml (20-80 ml) ESVi: 21 ml/m? (13-48 ml/m?) SV: 52 ml (39-109 ml) SVi: 29 ml/m? (29-66 ml/m?) EF: 58 % (46-74 %) CO: 5.2 l/min (2.4-6.4 l/min) CI: 2.9 l/min/m? (1.6-4.0 l/min/m?) T1 / T2 / ECV T2 * : +------+ +----- -+-------+ T1 pre (ms) +/- ECV (%) +------+ +----- -+-------+ Base 1058.48 56.99 +------+ +----- -+-------+ Mid 1040.12 60.11 +------+ +----- -+-------+ Blachly 1051.91 103.12 +------+ +----- -+-------+ Global 1050.50 73.23 32.00 +------+ +----- -+-------+ Normal values based on healthy individuals: T1: 950 +/- 21 ms; ECV: 26 +/- 4 (more content not included)... 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 Ordering physician: MARCELINA RANGEL Technologist: MEAGHAN YOUNG Fellow: Nataliya Lawton MD and Valeriano Spivey MD Interpreting physician: Trinity Matson MD PATIENT: Name: SONYA MEYER Age: 39 years Gender: F MRI Scanner: Siemens Elba 1.5T 39 year old female with past medical history of relapsed T-cell precursor lymphoblastic leukemia/lymphoma, left jugular vein thrombosis, tracheoesophageal fistula who presents for evaluation of cardiac amyloidosis. This study is performed to quantify left/right ventricular size and function, valvular function, and to perform tissue characterization for the assessment of myocardial fibrosis/edema/infiltrati ve disease. MRI Techniques: * Turbo spin echo and gradient echo imaging for anatomic definition. * Dynamic cine imaging (SSFP and GRE) for cardiac chamber and wall-motion analysis, and valvular analysis. * Flow quantification sequences for hemodynamics in 2 locations: aortic root and mid-ascending aorta. * Delayed gadolinium enhancement analysis after injection of gadolinium-chelate. * T2STIR/ T2 Fat Saturated Imaging. * T1 mapping. Gadolinium Agent: 11 cc of Gadavist was administered. Baseline vital signs: 100 bpm Height: 152.00 cm BSA: 1.77 m Weight: 74.00 kg BMI: 32.0 kg/m FINDINGS: Extracardiac findings: The chest wall appears abnormal. The mediastinum is abnormal. - Small nodule measuring 1.2 cm in the right breast with adjacent soft tissue changes in patient with history of prior biopsy. -Hypointense mass in the superior and anterior mediastinum. No significant adenopathy is identified. Limited imaging of the lungs reveals no gross abnormalities. Cardiac structures: The cardiac chambers demonstrate normal atrioventricular and normal ventriculoarterial concordance. Systemic and pulmonary venous return is normal. Situs solitus. Aorta: The thoracic aorta is normal in course, caliber and contour. Mid ascendin.3 cm Pulmonary Arteries: Pulmonary Arteries: Normal Measurements: - Main pulmonary artery diameter: 2.2 cm Left Atrium: The left atrium is normal in size. LA volume: 28 ml (normal range: 28-100 ml) LA volume index: 16 ml/m (normal range: 17-54 ml/m ) LA area (4ch): 12 cm LA area (2ch): 12 cm Right Atrium: The right atrium is normal in size. RA volume: 30 ml (normal range: 24-81 ml) RA volume index: 17 ml/m (normal range: 18-58 ml/m ) RA area (4ch): 13 cm Left Ventricle: The left ventricle is normal in size. Left ventricular systolic function is low normal. value (normal range) indexed (normal range) EDV: 105 ml (70-155 ml) EDVi: 59 ml/m (45-93 ml/m ) ESV: 49 ml (15-64 ml) ESVi: 28 ml/m (10-38 ml/m ) SV: 56 ml (47-99 ml) SVi: 32 ml/m (30-59 ml/m ) EF: 53 % (52-79 %) CO: 5.6 l/min (3.0-6.9 l/min) CI: 3.1 l/min/m (1.9-4.0 ml/min/m ) mass: 82 g (43-103 g) LVMi: 46 g/m (30-59 g/m ) There is no LV hypertrophy. LV segment wall thickness: basal anteroseptum: 0.7 cm basal inferolateral: 0.7 cm Edema-weighted imaging: There is no evidence of myocardial edema. All segments are normal. Wall Motion: There are no wall motion abnormalities. Delayed Enhancement: There is <25% delayed gadolinium enhancement of the basal inferoseptal segment. All remaining scored segments are normal. Delayed-enhancement imaging reveals non-specific RV insertion point late gadolinium enhancement. Constellation of findings could be suggestive of No significant myocardial disease. Right Ventricle: The right ventricle is normal in size. Right ventricular systolic function is normal. value (normal range) indexed (normal range) EDV: 89 ml (68-176 ml) EDVi: 51 ml/m (48-104 ml/m ) ESV: 37 ml (20-80 ml) ESVi: 21 ml/m (13-48 ml/m ) SV: 52 ml (39-109 ml) SVi: 29 ml/m (29-66 ml/m ) EF: 58 % (46-74 %) CO: 5.2 l/min (2.4-6.4 l/min) CI: 2.9 l/min/m (1.6-4.0 l/min/m ) T1 / T2 / ECV T2 * : +------+ +----- -+-------+ T1 pre (ms) +/- ECV (%) +------+ +----- -+-------+ Base 1058.48 56.99 +------+ +----- -+-------+ Mid 1040.12 60.11 +------+ +----- -+-------+ Blachly 1051.91 103.12 +------+ +----- -+-------+ Global 1050.50 73.23 32.00 +------+ + (more content not included)... DIVISION OF RADIOLOGY Provider, [facility] - 11/18/2024 * * *Final Report* * * DATE OF EXAM: Nov 18 2024 8:41AM [facility] 0703 - MRI CARD MORPH FUNC WO/W IVCON / PROCEDURE REASON: 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HCC) * * * * Physician Interpretation * * * * Cardiac MRI Report: [facility] Date of service: 11/18/2024 8:07:17 AM Linked orders:[id number] CARDIAC VELOCITY FLOW MAP;[id number] [facility] Ordering physician: MARCELINA RANGEL Technologist: MEAGHAN YOUNG Fellow: Nataliya Lawton MD and Valeriano Spivey MD Interpreting physician: Trinity Matson MD PATIENT: Name: SONYA MEYER Age: 39 years Gender: F MRI Scanner: Siemens Elba 1.5T 39 year old female with past medical history of relapsed T-cell precursor lymphoblastic leukemia/lymphoma, left jugular vein thrombosis, tracheoesophageal fistula who presents for evaluation of cardiac amyloidosis. This study is performed to quantify left/right ventricular size and function, valvular function, and to perform tissue characterization for the assessment of myocardial fibrosis/edema/infiltrati ve disease. MRI Techniques: * Turbo spin echo and gradient echo imaging for anatomic definition. * Dynamic cine imaging (SSFP and GRE) for cardiac chamber and wall-motion analysis, and valvular analysis. * Flow quantification sequences for hemodynamics in 2 locations: aortic root and mid-ascending aorta. * Delayed gadolinium enhancement analysis after injection of gadolinium-chelate. * T2STIR/ T2 Fat Saturated Imaging. * T1 mapping. Gadolinium Agent: 11 cc of Gadavist was administered. Baseline vital signs: 100 bpm Height: 152.00 cm BSA: 1.77 m Weight: 74.00 kg BMI: 32.0 kg/m FINDINGS: Extracardiac findings: The chest wall appears abnormal. The mediastinum is abnormal. - Small nodule measuring 1.2 cm in the right breast with adjacent soft tissue changes in patient with history of prior biopsy. -Hypointense mass in the superior and anterior mediastinum. No significant adenopathy is identified. Limited imaging of the lungs reveals no gross abnormalities. Cardiac structures: The cardiac chambers demonstrate normal atrioventricular and normal ventriculoarterial concordance. Systemic and pulmonary venous return is normal. Situs solitus. Aorta: The thoracic aorta is normal in course, caliber and contour. Mid ascendin.3 cm Pulmonary Arteries: Pulmonary Arteries: Normal Measurements: - Main pulmonary artery diameter: 2.2 cm Left Atrium: The left atrium is normal in size. LA volume: 28 ml (normal range: 28-100 ml) LA volume index: 16 ml/m (normal range: 17-54 ml/m ) LA area (4ch): 12 cm LA area (2ch): 12 cm Right Atrium: The right atrium is normal in size. RA volume: 30 ml (normal range: 24-81 ml) RA volume index: 17 ml/m (normal range: 18-58 ml/m ) RA area (4ch): 13 cm Left Ventricle: The left ventricle is normal in size. Left ventricular systolic function is low normal. value (normal range) indexed (normal range) EDV: 105 ml (70-155 ml) EDVi: 59 ml/m (45-93 ml/m ) ESV: 49 ml (15-64 ml) ESVi: 28 ml/m (10-38 ml/m ) SV: 56 ml (47-99 ml) SVi: 32 ml/m (30-59 ml/m ) EF: 53 % (52-79 %) CO: 5.6 l/min (3.0-6.9 l/min) CI: 3.1 l/min/m (1.9-4.0 ml/min/m ) mass: 82 g (43-103 g) LVMi: 46 g/m (30-59 g/m ) There is no LV hypertrophy. LV segment wall thickness: basal anteroseptum: 0.7 cm basal inferolateral: 0.7 cm Edema-weighted imaging: There is no evidence of myocardial edema. All segments are normal. Wall Motion: There are no wall motion abnormalities. Delayed Enhancement: There is <25% delayed gadolinium enhancement of the basal inferoseptal segment. All remaining scored segments are normal. Delayed-enhancement imaging reveals non-specific RV insertion point late gadolinium enhancement. Constellation of findings could be suggestive of No significant myocardial disease. Right Ventricle: The right ventricle is normal in size. Right ventricular systolic function is normal. value (normal range) indexed (normal range) EDV: 89 ml (68-176 ml) EDVi: 51 ml/m (48-104 ml/m ) ESV: 37 ml (20-80 ml) ESVi: 21 ml/m (13-48 ml/m ) SV: 52 ml (39-109 ml) SVi: 29 ml/m (29-66 ml/m ) EF: 58 % (46-74 %) CO: 5.2 l/min (2.4-6.4 l/min) CI: 2.9 l/min/m (1.6-4.0 l/min/m ) T1 / T2 / ECV T2 * : +------+ +----- -+-------+ T1 pre (ms) +/- ECV (%) +------+ +----- -+-------+ Base 1058.48 56.99 +------+ +----- -+-------+ Mid 1040.12 60.11 +------+ +----- -+-------+ Blachly 1051.91 103.12 +------+ +----- -+-------+ Global 1050.50 73.23 32.00 +------+ +----- -+-------+ Normal values based on healthy individuals: T1: 950 +/- 21 ms; ECV: 26 (more content not included)... [facility] MRI CARDIAC VELOCITY FLOW [place] Mikel 11-18-2024 * * *Final Report* * * DATE OF EXAM: Nov 18 2024 8:41AM [facility] 0704 - MRI CARDIAC VELOCITY FLOW MAP / PROCEDURE REASON: multiple diagnoses * * * * Physician Interpretation * * * * Cardiac MRI Report: [facility] Date of service: 11/18/2024 8:07:17 AM Linked orders:[id number] CARDIAC VELOCITY FLOW MAP;[id number] CARD MORPH FUNC WO/W IVCON. Ordering physician: MARCELINA RANGEL Technologist: MEAGHAN YOUNG Fellow: Nataliya Lawton MD and Valeriano Spivey MD Interpreting physician: Trinity Matson MD PATIENT: Name: SONYA MEYER Age: 39 years Gender: F MRI Scanner: Siemens Elba 1.5T 39 year old female with past medical history of relapsed T-cell precursor lymphoblastic leukemia/lymphoma, left jugular vein thrombosis, tracheoesophageal fistula who presents for evaluation of cardiac amyloidosis. This study is performed to quantify left/right ventricular size and function, valvular function, and to perform tissue characterization for the assessment of myocardial fibrosis/edema/infiltrati ve disease. MRI Techniques: * Turbo spin echo and gradient echo imaging for anatomic definition. * Dynamic cine imaging (SSFP and GRE) for cardiac chamber and wall-motion analysis, and valvular analysis. * Flow quantification sequences for hemodynamics in 2 locations: aortic root and mid-ascending aorta. * Delayed gadolinium enhancement analysis after injection of gadolinium-chelate. * T2STIR/ T2 Fat Saturated Imaging. * T1 mapping. Gadolinium Agent: 11 cc of Gadavist was administered. Baseline vital signs: 100 bpm Height: 152.00 cm BSA: 1.77 m? Weight: 74.00 kg BMI: 32.0 kg/m? FINDINGS: Extracardiac findings: The chest wall appears abnormal. The mediastinum is abnormal. - Small nodule measuring 1.2 cm in the right breast with adjacent soft tissue changes in patient with history of prior biopsy. -Hypointense mass in the superior and anterior mediastinum. No significant adenopathy is identified. Limited imaging of the lungs reveals no gross abnormalities. Cardiac structures: The cardiac chambers demonstrate normal atrioventricular and normal ventriculoarterial concordance. Systemic and pulmonary venous return is normal. Situs solitus. Aorta: The thoracic aorta is normal in course, caliber and contour. Mid ascendin.3 cm Pulmonary Arteries: Pulmonary Arteries: Normal Measurements: - Main pulmonary artery diameter: 2.2 cm Left Atrium: The left atrium is normal in size. LA volume: 28 ml (normal range: 28-100 ml) LA volume index: 16 ml/m? (normal range: 17-54 ml/m?) LA area (4ch): 12 cm? LA area (2ch): 12 cm? Right Atrium: The right atrium is normal in size. RA volume: 30 ml (normal range: 24-81 ml) RA volume index: 17 ml/m? (normal range: 18-58 ml/m?) RA area (4ch): 13 cm? Left Ventricle: The left ventricle is normal in size. Left ventricular systolic function is low normal. value (normal range) indexed (normal range) EDV: 105 ml (70-155 ml) EDVi: 59 ml/m? (45-93 ml/m?) ESV: 49 ml (15-64 ml) ESVi: 28 ml/m? (10-38 ml/m?) SV: 56 ml (47-99 ml) SVi: 32 ml/m? (30-59 ml/m?) EF: 53 % (52-79 %) CO: 5.6 l/min (3.0-6.9 l/min) CI: 3.1 l/min/m? (1.9-4.0 ml/min/m?) mass: 82 g (43-103 g) LVMi: 46 g/m? (30-59 g/m?) There is no LV hypertrophy. LV segment wall thickness: basal anteroseptum: 0.7 cm basal inferolateral: 0.7 cm Edema-weighted imaging: There is no evidence of myocardial edema. All segments are normal. Wall Motion: There are no wall motion abnormalities. Delayed Enhancement: There is <25% delayed gadolinium enhancement of the basal inferoseptal segment. All remaining scored segments are normal. Delayed-enhancement imaging reveals non-specific RV insertion point late gadolinium enhancement. Constellation of findings could be suggestive of No significant myocardial disease. Right Ventricle: The right ventricle is normal in size. Right ventricular systolic function is normal. value (normal range) indexed (normal range) EDV: 89 ml (68-176 ml) EDVi: 51 ml/m? (48-104 ml/m?) ESV: 37 ml (20-80 ml) ESVi: 21 ml/m? (13-48 ml/m?) SV: 52 ml (39-109 ml) SVi: 29 ml/m? (29-66 ml/m?) EF: 58 % (46-74 %) CO: 5.2 l/min (2.4-6.4 l/min) CI: 2.9 l/min/m? (1.6-4.0 l/min/m?) T1 / T2 / ECV T2 * : +------+ +----- -+-------+ T1 pre (ms) +/- ECV (%) +------+ +----- -+-------+ Base 1058.48 56.99 +------+ +----- -+-------+ Mid 1040.12 60.11 +------+ +----- -+-------+ Blachly 1051.91 103.12 +------+ +----- -+-------+ Global 1050.50 73.23 32.00 +------+ +----- -+-------+ Normal value (more content not included)... [facility], Radiologi MD chandana - 11/18/2024 * * *Final Report* * * DATE OF EXAM: Nov 18 2024 8:41AM [facility] - MRI CARDIAC VELOCITY FLOW MAP / PROCEDURE REASON: multiple diagnoses * * * * Physician Interpretation * * * * Cardiac MRI Report: [facility] Date of service: 11/18/2024 8:07:17 AM Linked orders:[id number] CARDIAC VELOCITY FLOW MAP;[id number] CARD MORPH FUNC WO/W IVCON. Ordering physician: MARCELINA RANGEL Technologist: MEAGHAN YOUNG Fellow: Nataliya Lawton MD and Valeriano Spivey MD Interpreting physician: Trinity Matson MD PATIENT: Name: SONYA MEYER Age: 39 years Gender: F MRI Scanner: Siemens Elba 1.5T 39 year old female with past medical history of relapsed T-cell precursor lymphoblastic leukemia/lymphoma, left jugular vein thrombosis, tracheoesophageal fistula who presents for evaluation of cardiac amyloidosis. This study is performed to quantify left/right ventricular size and function, valvular function, and to perform tissue characterization for the assessment of myocardial fibrosis/edema/infiltrati ve disease. MRI Techniques: * Turbo spin echo and gradient echo imaging for anatomic definition. * Dynamic cine imaging (SSFP and GRE) for cardiac chamber and wall-motion analysis, and valvular analysis. * Flow quantification sequences for hemodynamics in 2 locations: aortic root and mid-ascending aorta. * Delayed gadolinium enhancement analysis after injection of gadolinium-chelate. * T2STIR/ T2 Fat Saturated Imaging. * T1 mapping. Gadolinium Agent: 11 cc of Gadavist was administered. Baseline vital signs: 100 bpm Height: 152.00 cm BSA: 1.77 m? Weight: 74.00 kg BMI: 32.0 kg/m? FINDINGS: Extracardiac findings: The chest wall appears abnormal. The mediastinum is abnormal. - Small nodule measuring 1.2 cm in the right breast with adjacent soft tissue changes in patient with history of prior biopsy. -Hypointense mass in the superior and anterior mediastinum. No significant adenopathy is identified. Limited imaging of the lungs reveals no gross abnormalities. Cardiac structures: The cardiac chambers demonstrate normal atrioventricular and normal ventriculoarterial concordance. Systemic and pulmonary venous return is normal. Situs solitus. Aorta: The thoracic aorta is normal in course, caliber and contour. Mid ascendin.3 cm Pulmonary Arteries: Pulmonary Arteries: Normal Measurements: - Main pulmonary artery diameter: 2.2 cm Left Atrium: The left atrium is normal in size. LA volume: 28 ml (normal range: 28-100 ml) LA volume index: 16 ml/m? (normal range: 17-54 ml/m?) LA area (4ch): 12 cm? LA area (2ch): 12 cm? Right Atrium: The right atrium is normal in size. RA volume: 30 ml (normal range: 24-81 ml) RA volume index: 17 ml/m? (normal range: 18-58 ml/m?) RA area (4ch): 13 cm? Left Ventricle: The left ventricle is normal in size. Left ventricular systolic function is low normal. value (normal range) indexed (normal range) EDV: 105 ml (70-155 ml) EDVi: 59 ml/m? (45-93 ml/m?) ESV: 49 ml (15-64 ml) ESVi: 28 ml/m? (10-38 ml/m?) SV: 56 ml (47-99 ml) SVi: 32 ml/m? (30-59 ml/m?) EF: 53 % (52-79 %) CO: 5.6 l/min (3.0-6.9 l/min) CI: 3.1 l/min/m? (1.9-4.0 ml/min/m?) mass: 82 g (43-103 g) LVMi: 46 g/m? (30-59 g/m?) There is no LV hypertrophy. LV segment wall thickness: basal anteroseptum: 0.7 cm basal inferolateral: 0.7 cm Edema-weighted imaging: There is no evidence of myocardial edema. All segments are normal. Wall Motion: There are no wall motion abnormalities. Delayed Enhancement: There is <25% delayed gadolinium enhancement of the basal inferoseptal segment. All remaining scored segments are normal. Delayed-enhancement imaging reveals non-specific RV insertion point late gadolinium enhancement. Constellation of findings could be suggestive of No significant myocardial disease. Right Ventricle: The right ventricle is normal in size. Right ventricular systolic function is normal. value (normal range) indexed (normal range) EDV: 89 ml (68-176 ml) EDVi: 51 ml/m? (48-104 ml/m?) ESV: 37 ml (20-80 ml) ESVi: 21 ml/m? (13-48 ml/m?) SV: 52 ml (39-109 ml) SVi: 29 ml/m? (29-66 ml/m?) EF: 58 % (46-74 %) CO: 5.2 l/min (2.4-6.4 l/min) CI: 2.9 l/min/m? (1.6-4.0 l/min/m?) T1 / T2 / ECV T2 * : +------+ +----- -+-------+ T1 pre (ms) +/- ECV (%) +------+ +----- -+-------+ Base 1058.48 56.99 +------+ +----- -+-------+ Mid 1040.12 60.11 +------+ +----- -+-------+ Blachly 1051.91 103.12 +------+ +----- -+-------+ Global 1050.50 73.23 32.00 +------+ +----- -+-------+ Normal values based on healthy individuals: T1: 950 +/- 21 ms; ECV: 26 +/- 4% Aortic Valve: There is (more content not included)... [employer] MRI CARDIAC VELOCITY FLOW MAP Normal [facility] No Panel InformationOrdered By: Radiologist Radiology on 11-18-2024 [employer] Work Phone: No Panel Informationon 11-18 IMPRESSION: - The left ventricle is normal in size (LV EDVi = 59 ml/m ). The left ventricular systolic function is low normal (LV EF = 53 %). There is no LV hypertrophy (basal anteroseptal thickness = 0.7 cm). There is no evidence of myocardial edema. Normal gadolinium kinetics. No significant late gadolinium enhancement. - The right ventricle is normal in size (RV EDVi = 51 ml/m ). The right ventricular systolic function is normal (RV EF = 58 %). - No significant valvular abnormalities. - Small pericardial effusion measuring 5mm adjacent to the RV. - Small nodule measuring 1.2 cm in the right breast with adjacent soft tissue changes in patient with history of prior biopsy. In addition, there is a hypointense mass/bulky lymphadenopathy in the superior and anterior mediastinum as seen on the prior chest CT, without significant change. Please refer to CT chest October 28, 2024 for further characterization. - The patient has not had a prior [facility] cardiac MR exam for comparison. * * * Final * * * RP Appraiser Art: [email or web address] Transcriemilio Date/Time: Nov 18 2024 8:07A Dictated by : TRINITY MATSON MD This examination was interpreted and the report reviewed and electronically signed by: TRINITY MATSON MD on Nov 18 2024 5:24PM [facility] DIVISION OF RADIOLOGY Radiology Study observation (narrative) [facility] Radiology Study observation (narrative) [facility] ALL CBC WITH AUTO DIFFon BASOPHILS ABSOLUTE AUTO 0 [facility] Basophils/100 WBC (Bld) 0.1 % Low 0.2 - 2.0 % [facility] Eosinophils/100 WBC (Bld) 0.1 % Low 0.9 - 7.0 % [facility] Erythrocyte distribution width (RBC) [Ratio] 18.6 % High 11.0 - 15.0 % [facility] Hematocrit (Bld) [Volume fraction] 40.4 % 36.0 - 48.0 % [facility] Hemoglobin (Bld) [Mass/Vol] 11.6 g/dL Low 12.0 - 16.0 g/dL [facility] IMMATURE GRANULOCYTES ABS AUTO 0.04 High [facility] Immature granulocytes/100 WBC (Bld) 0.4 % 0.0 - 0.5 % [facility] Interpretation and review of laboratory results Abnormal [facility] LYMPHOCYTES ABSOLUTE AUTO 1.1 Low [facility] Lymphocytes/100 WBC (Bld) 11.4 % Low 20.5 - 60.0 % [facility] MCH (RBC) [Entitic mass] 23.7 pg Low 26.7 - 34.0 pg [facility] MCHC (RBC) [Mass/Vol] 28.7 g/dL Low 29.9 - 35.2 g/dL [facility] MCV (RBC) [Entitic vol] 82.4 fL 81.0 - 99.0 fL [facility] MONOCYTES ABSOLUTE AUTO 0.6 [facility] Monocytes/100 WBC (Bld) 6.6 % 1.7 - 12.0 % [facility] NEUTROPHILS ABSOLUTE AUTO 7.6 High [facility] Neutrophils/100 WBC (Bld) 81.4 % High 43.0 - 75.0 % [facility] Platelet mean volume (Bld) [Entitic vol] 10.7 fL 9.5 - 13.5 fL [facility] EO # 0 [facility] PLT 326 [facility] RBC 4.9 [facility] WBC 9.3 [facility] ALL CBC WITH AUTO DIFFon BASOPHILS ABSOLUTE AUTO 0 [facility] Basophils/100 WBC (Bld) 0.6 % 0.2 - 2.0 % [facility] Eosinophils/100 WBC (Bld) 1.7 % 0.9 - 7.0 % [facility] Erythrocyte distribution width (RBC) [Ratio] 20.9 % High 11.0 - 15.0 % [facility] Hematocrit (Bld) [Volume fraction] 42.6 % 36.0 - 48.0 % [facility] Hemoglobin (Bld) [Mass/Vol] 12.6 g/dL 12.0 - 16.0 g/dL [facility] IMMATURE GRANULOCYTES ABS AUTO 0.01 [facility] Immature granulocytes/100 WBC (Bld) 0.2 % 0.0 - 0.5 % [facility] Interpretation and review of laboratory results Abnormal [facility] LYMPHOCYTES ABSOLUTE AUTO 1.3 [facility] Lymphocytes/100 WBC (Bld) 20.2 % Low 20.5 - 60.0 % [facility] MCH (RBC) [Entitic mass] 23.5 pg Low 26.7 - 34.0 pg [facility] MCHC (RBC) [Mass/Vol] 29.6 g/dL Low 29.9 - 35.2 g/dL [facility] MCV (RBC) [Entitic vol] 79.3 fL Low 81.0 - 99.0 fL [facility] MONOCYTES ABSOLUTE AUTO 0.7 [facility] Monocytes/100 WBC (Bld) 10.1 % 1.7 - 12.0 % [facility] NEUTROPHILS ABSOLUTE AUTO 4.3 [facility] Neutrophils/100 WBC (Bld) 67.2 % 43.0 - 75.0 % [facility] Platelet mean volume (Bld) [Entitic vol] 11.1 fL 9.5 - 13.5 [facility]L [facility] 5.37 [facility] WBC 6.4 [facility] CNPNon 11-09-2024 CNPN Normal [facility] Hematology Consultationon Hematology Consultation Chief Complaint T-cell lymphoblastic lymphoma, relapsed/refractory History of Present Illness Ms. Meyer is a 39 year old female who is a [employer] with refusal to receive donated blood products, no other significant medical history recently diagnosed with T-cell lymphoblastic lymphoma. The patient presented in March with fairly rapid over several month progression of chest discomfort, choking sensation and neck swelling. She also had associated fevers, night sweats and weight loss. She had CT scan outside hospital that revealed an anterior mediastinal mass with extension to the superior mediastinum and right hilum measured by report 10.9 x 3.8 x 15cm with mass effect on the eduardo and left main stem bronchus in addition to other findings including thrombosis in the left internal jugular, left subclavian, left axillary veins and venous congestion/edema in the neck as well as RUL ill defined nodular density non specific and fatty liver. 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 She did remain intubated for some period of time. Her blood counts were relatively unremarkable. She was transferred to [facility] on 04/19/2024 and had bone marrow aspiration and biopsy performed during admission that was negative for any leukemic/lymphomatous involvement, CSF sampling was negative. She was noted on documentation to have documented right IJ DVT and PE in addition to noted left side thrombosis. She was on Heparin drip and eventually transitioned to low molecular weight Heparin. 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 CT abd/pelvis reported with no subdiaphragmatic involvement. Echocardiogram within normal limits. She was recommended induction therapy, although not offered typical ALL regimens secondary to risk of myelosuppression and transfusions and started on modified CVP with C1D1=04/23/2024. The patient notes several days later noting clinical response with improved pain, neck swelling and eventual resolution of her fevers and sweats. She did have the addition of Velcade as well and had significant neuropathy and this was discontinued subsequent. The only complications noted by documentation were increased LFTs as well as myelosuppression with low WBC count requiring G-CSF. She did receive EPO by documentation. She received a total of 6 cycles modified CVP from 04/2024 which was completed with G0I8=1808/06/2024. She also received intrathecal Methotrexate prophylaxis and has received a total of 5 cycles with a planned 6th cycle currently 11/08/2024. 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 She also had a PICC line placed for venous access. After her 6th cycle she had a PET scan with reported partial response as well as repeat bone marrow aspiration and biopsy 08/17/2024 that revealed continued absent involvement of leukemia/lymphoma. She was recommended modified POMP with every 3 week Vincristine +/- steroid and received a single dose on 09/07/2024 at her local oncology office in [place]. 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 She received radiation therapy with 20Gy/5 completed 10/05/2024 that was performed inpatient. She had another CT performed 10/05/2024 that reported a significant increased size mediastinal mass with signs of necrosis measuring 20 x 8cm maximal dimensions. She did receive another dose of intrathecal Methotrexate during inpatient admission on 10/07/2024 noted. She was also noted to have pericardial effusion but no intervention was felt necessary/pursued. She was able to be discharged. She has had follow up CT scan performed 10/28/2024 recent with reported improved anterior mediastinal mass compared to 10/05/2024 with mass measuring 12.5 x 4.5cm in addition to reduction of the right paratracheal adenopathy reported, new apical groundglass opacities left side non specific. Currently on observation with plans for another dose of IT Methotrexate and follow up with [facility]. The patient doing fair. The patient does have significant weakness with her maximal activity mobilizing through the home room to room. Her house has been modified to limit her mobility given she fatigues easily. The most activity she will have is going out of the house for a physician visit which will significantly fatigue the patient. She continues tube feeds through her (more content not included)... Normal [facility] ALL CBC WITH AUTO DIFFon BASOPHILS ABSOLUTE AUTO 0 [facility] Basophils/100 WBC (Bld) 0.6 % 0.2 - 2.0 % [facility] Eosinophils/100 WBC (Bld) 1.3 % 0.9 - 7.0 % [facility] Erythrocyte distribution width (RBC) [Ratio] 20.8 % High 11.0 - 15.0 % [facility] Hematocrit (Bld) [Volume fraction] 39.3 % 36.0 - 48.0 % [facility] Hemoglobin (Bld) [Mass/Vol] 11.4 g/dL Low 12.0 - 16.0 g/dL [facility] IMMATURE GRANULOCYTES ABS AUTO 0.02 [facility] Immature granulocytes/100 WBC (Bld) 0.4 % 0.0 - 0.5 % [facility] Interpretation and review of laboratory results Abnormal [facility] LYMPHOCYTES ABSOLUTE AUTO 0.9 Low [facility] Lymphocytes/100 WBC (Bld) 16 % Low 20.5 - 60.0 % [facility] MCH (RBC) [Entitic mass] 22.8 pg Low 26.7 - 34.0 pg [facility] MCHC (RBC) [Mass/Vol] 29 g/dL Low 29.9 - 35.2 g/dL [facility] MCV (RBC) [Entitic vol] 78.8 fL Low 81.0 - 99.0 fL [facility] MONOCYTES ABSOLUTE AUTO 0.7 [facility] Monocytes/100 WBC (Bld) 12.9 % High 1.7 - 12.0 % [facility] NEUTROPHILS ABSOLUTE AUTO 3.8 [facility] Neutrophils/100 WBC (Bld) 68.8 % 43.0 - 75.0 % [facility] Platelet mean volume (Bld) [Entitic vol] 10.1 fL 9.5 - 13.5 fL [facility] TBH EO # 0.1 [facility] TB PLT 332 [facility] TB RBC 4.99 [facility] WBC 5.4 [facility] CNPNon 01-27-2025 CNPN Normal [facility] CHEST W IVCONon CT CHEST W IVCON Normal [facility] ALL CBC WITH AUTO DIFFon Erythrocyte distribution width (RBC) [Ratio] 21.5 % High 11.0 - 15.0 % [facility] Hematocrit (Bld) [Volume fraction] 35.3 % Low 36.0 - 48.0 % [facility] Hemoglobin (Bld) [Mass/Vol] 10.1 g/dL Low 12.0 - 16.0 g/dL [facility] Interpretation and review of laboratory results Abnormal [facility] MCH (RBC) [Entitic mass] 22.7 pg Low 26.7 - 34.0 pg [facility] MCHC (RBC) [Mass/Vol] 28.6 g/dL Low 29.9 - 35.2 g/dL [facility] MCV (RBC) [Entitic vol] 79.5 fL Low 81.0 - 99.0 fL [facility] Platelet mean volume (Bld) [Entitic vol] 10.1 fL 9.5 - 13.5 fL [facility] TBH PLT 210 [facility]H RBC 4.44 [facility] WBC 4.5 [facility] CNPNon 10-21-2024 CNPN Normal [facility] CNPNon 10-20-2024 CNPN Normal [facility] CNCOon 10-18-2024 CNCO Letter Text Normal [facility] CBC W Auto Differential pane l (Bld)on 10-15-2024 Basophils (Bld) [#/Vol] [facility] Differential cell count method Nom (Bld) Auto [facility] Eosinophils (Bld) [#/Vol] 0.07 10*3/uL [facility] Hematocrit (Bld) [Volume fraction] 28.0 % Low 36.0 - 46.0 % [facility] Immature granulocytes (Bld) [#/Vol] 0.03 10*3/uL [facility] Immature granulocytes/100 WBC (Bld) 0.5 % [facility] Lymphocytes (Bld) [#/Vol] 0.15 10*3/uL Low [facility] MCHC (RBC) [Mass/Vol] 30.0 g/dL Low 30.5 - 36.0 g/dL [facility] Monocytes (Bld) [#/Vol] 0.48 10*3/uL [facility] Neutrophils (Bld) [#/Vol] 4.83 10*3/uL [facility] Nucleated RBC (Bld) [#/Vol] 0.07 10*3/uL High [facility] Nucleated RBC/100 WBC (Bld) [Ratio] 1.3 % /100 WBC [facility] Platelet mean volume (Bld) [Entitic vol] 11.2 fL 9.0 - 12.7 fL [facility] Platelets (Bld) [#/Vol] 97 10*3/uL Low [facility] 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: Results checked and verified.No clot detected. WBC (Bld) [#/Vol] 5.57 10*3/uL [facility] Basophils (Bld) [#/Vol] 10*3/uL Normal <0.11 [facility] 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: Order Comment: Speci men Type: BLOOD SPECIMENOrdering Facility: [facility] Address: [address] [place] [address] Performed By: #### 5 7021-8 ####[facility] [id number] [place] [address] [place] Basophils/100 WBC (Bld) 0.2 % Normal [facility] 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: Order Comment: Speci men Type: BLOOD SPECIMENOrdering Facility: [facility] Address: [address] [place] [address] Performed By: #### 5 7021-8 ####[facility] [place] [id number] [place] [address] [place] Differential cell count method Nom (Bld) Auto Normal [facility] 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: Order Comment: Speci men Type: BLOOD SPECIMENOrdering Facility: [facility] Address: [address] [place] [address] Performed By: #### 5 7021-8 ####[facility] [place] [id number] [place] [address] [place] Eosinophils (Bld) [#/Vol] 0.07 10*3/uL Normal <0.46 [facility] 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: Order Comment: Speci men Type: BLOOD SPECIMENOrdering Facility: [facility] Address: [address] [place] [address] Performed By: #### 5 7021-8 ####[facility] [id number] [place] [address] [place] Eosinophils/100 WBC (Bld) 1.3 % Normal [facility] 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: Order Comment: Speci men Type: BLOOD SPECIMENOrdering Facility: [facility] Address: [address] [place] [address] Performed By: #### 5 7021-8 ####[facility] [place] [id number] [place] [address] [place] Erythrocyte distribution width (RBC) [Ratio] 20.7 % High 11.5-15.0 [facility] 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: Order Comment: Speci men Type: BLOOD SPECIMENOrdering Facility: [facility] Address: [address] [place] [address] Performed By: #### 5 7021-8 ####[facility] [place] [id number] [place] [address] [place] Hematocrit (Bld) [Volume fraction] 28.0 % Low 36.0-46.0 [facility] 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: Order Comment: Speci men Type: BLOOD SPECIMENOrdering Facility: [facility] Address: [address] [place] [address] Performed By: #### 5 7021-8 ####[facility] [id number] [place] [address] [place] Hemoglobin (Bld) [Mass/Vol] 8.4 g/dL Low 11.5-15.5 [facility] 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: Order Comment: Speci men Type: BLOOD SPECIMENOrdering Facility: [facility] Address: [address] [place] [address] Performed By: #### 5 7021-8 ####[facility] [id number] [place] [address] [place] Immature granulocytes (Bld) [#/Vol] 0.03 10*3/uL Normal <0.10 [facility] 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: Order Comment: Speci men Type: BLOOD SPECIMENOrdering Facility: [facility] Address: [address] [place] [address] Performed By: #### 5 7021-8 ####[facility] [id number] [address] [place] Immature granulocytes/100 WBC (Bld) 0.5 % Normal [facility] 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: Order Comment: Speci men Type: BLOOD SPECIMENOrdering Facility: [facility] Address: [address] [place] [address] Performed By: #### 5 7021-8 ####[facility] [place] [id number] [place] [address] [place] Lymphocytes (Bld) [#/Vol] 0.15 10*3/uL Low 1.00-4.00 [facility] 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: Order Comment: Speci men Type: BLOOD SPECIMENOrdering Facility: [facility] Address: [address] [place] [address] Performed By: #### 5 7021-8 ####[facility] [id number] [place] [address] [place] Lymphocytes/100 WBC (Bld) 2.7 % Normal [facility] 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: Order Comment: Speci men Type: BLOOD SPECIMENOrdering Facility: [facility] Address: [address] [place] [address] Performed By: #### 5 7021-8 ####[facility] [id number] [place] [address] [place] MCH (RBC) [Entitic mass] 23.1 pg Low 26.0-34.0 [facility] 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: Order Comment: Speci men Type: BLOOD SPECIMENOrdering Facility: [facility] Address: [address] [place] [address] Performed By: #### 5 7021-8 ####[facility] [id number] [place] [address] [place] MCHC (RBC) [Mass/Vol] 30.0 g/dL Low 30.5-36.0 [facility] 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: Order Comment: Speci men Type: BLOOD SPECIMENOrdering Facility: [facility] Address: [address] [place] [address] Performed By: #### 5 7021-8 ####[facility] [id number] [place] [address] [place] MCV (RBC) [Entitic vol] 77.1 fL Low 80.0-100.0 [facility] 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: Order Comment: Speci men Type: BLOOD SPECIMENOrdering Facility: [facility] Address: [address] [place] [address] Performed By: #### 5 7021-8 ####[facility] [place] [id number] [place] [address] [place] Monocytes (Bld) [#/Vol] 0.48 10*3/uL Normal <0.87 [facility] 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: Order Comment: Speci men Type: BLOOD SPECIMENOrdering Facility: [facility] Address: [address] [place] [address] Performed By: #### 5 7021-8 ####[facility] [id number] [place] [address] [place] Monocytes/100 WBC (Bld) 8.6 % Normal [facility] 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: Order Comment: Speci men Type: BLOOD SPECIMENOrdering Facility: [facility] Address: [address] [place] [address] Performed By: #### 5 7021-8 ####[facility] [id number] [place] [address] [place] Neutrophils (Bld) [#/Vol] 4.83 10*3/uL Normal 1.45-7.50 [facility] 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: Order Comment: Speci men Type: BLOOD SPECIMENOrdering Facility: [facility] Address: [address] [place] [address] Performed By: #### 5 7021-8 ####[facility] [facility] [id number] [place] [address] [place] Neutrophils/100 WBC (Bld) 86.7 % Normal [facility] 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: Order Comment: Speci men Type: BLOOD SPECIMENOrdering Facility: [facility] Address: [address] [place] [address] Performed By: #### 5 7021-8 ####[facility] [id number] [place] [address] [place] Nucleated RBC (Bld) [#/Vol] 0.07 10*3/uL High <0.01 [facility] 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: Order Comment: Speci men Type: BLOOD SPECIMENOrdering Facility: [facility] Address: [address] [place] [address] Performed By: #### 5 7021-8 ####[facility] [id number] [place] [address] [place] Nucleated RBC/100 WBC (Bld) [Ratio] 1.3 /100 WBC Normal [facility] 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: Order Comment: Speci men Type: BLOOD SPECIMENOrdering Facility: [facility] Address: [address] [place] [address] Performed By: #### 5 7021-8 ####[facility] [id number] [place] [address] [place] Platelet mean volume (Bld) [Entitic vol] 11.2 fL Normal 9.0-12.7 [facility] 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: Order Comment: Speci men Type: BLOOD SPECIMENOrdering Facility: [facility] Address: [address] [place] [address] Performed By: #### 5 7021-8 ####[facility] [id number] [place] [address] [place] Platelets (Bld) [#/Vol] 97 10*3/uL Low 150-400 [facility] 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: Order Comment: Speci men Type: BLOOD SPECIMENOrdering Facility: [facility] Address: [address] [place] [address] Result Comment: Resu lts checked and verified.No clot detected. Performed By: #### 5 7021-8 ####[facility] [id number] [place] [address] [place] RBC (Bld) [#/Vol] 3.63 10*6/uL Low 3.90-5.20 [facility] 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: Order Comment: Speci men Type: BLOOD SPECIMENOrdering Facility: [facility] Address: [address] [place] [address] Performed By: #### 5 7021-8 ####[facility] [id number] [place] [address] [place] WBC (Bld) [#/Vol] 5.57 10*3/uL Normal 3.70-11.00 [facility] 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: Order Comment: Speci men Type: BLOOD SPECIMENOrdering Facility: [facility] Address: [address] [place] [address] Performed By: #### 5 7021-8 ####[facility] [id number] [place] [address] [place] [facility] CBC W AUTO DIFF BLDon [facility] BASOPHILS # BLD AUTO <0.03 [facility] DIFFERENTIAL METHOD BLD Auto [facility] EOSINOPHIL # BLD AUTO 0.07 [facility] LYMPHOCYTES # BLD AUTO 0.15 Low [facility] MONOCYTES # BLD AUTO 0.48 [facility] NEUTROPHILS # BLD AUTO 4.83 [facility] NRBC # BLD AUTO 0.07 High [facility] NRBC/100 WBC BLD-RTO 1.3 /100 WBC [facility] PLATELET # BLD AUTO 97 Low [facility] 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: Results checked and verified.No clot detected. [facility] PMV BLD AUTO 11.2 fL 9.0 - 12.7 fL [facility] WBC # BLD AUTO 5.57 [facility] Hematocrit (Bld) [Volume fraction] 28 % Low 36.0 - 46.0 % [facility] IMM GRANULOCYTES # BLD AUTO 0.03 [facility] IMM GRANULOCYTES/LEUK NFR BLD AUTO 0.5 % [facility] MCHC (RBC) [Mass/Vol] 30 g/dL Low 30.5 - 36.0 g/dL [facility] Specimen Type: BLOOD SPECIMEN Ordering [facility] Address: [address] [place] [address] Original Ordering Provider: MARCELINA RANGEL [facility] CNOVSPon 10-15-2024 CNOVSP Normal [facility] Comprehensive metabolic 2000 panelon 10-15-2024 Albumin [Mass/Vol] 3.4 g/dL Low 3.9 - 4.9 g/dL [facility] ALP [Catalytic activity/Vol] 178 U/L High 34 - 123 U/L [facility] ALT [Catalytic activity/Vol] 24 U/L 7 - 38 U/L [facility] Anion gap [Moles/Vol] 9 mmol/L 8 - 15 mmol/L [facility] AST [Catalytic activity/Vol] 23 U/L 13 - 35 U/L [facility] Bilirubin [Mass/Vol] 1.0 mg/dL 0.2 - 1 .3 mg/dL [facility] Calcium [Mass/Vol] 8.7 mg/dL 8.5 - 10. 2 mg/dL [facility] Chloride [Moles/Vol] 103 mmol/L 98 - 10 7 mmol/L [facility] CO2 [Moles/Vol] 26 mmol/L 22 - 30 mmol/L [facility] Creatinine [Mass/Vol] 0.44 mg/dL Low 0.58 - 0.96 mg/dL [facility] GFR/1.73 sq M.predicted among non-blacks MDRD (S/P/Bld) [Vol rate/Area] 126 mL/min/{1.73_m2} - PINF [facility] 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: Estimated Glomerular Filtration Rate (eGFR) is calculated using the 2020 CKD-EPI creatinine equation. This equation utilizes serum creatinine, sex, and age as parameters. The creatinine assay has traceable calibration to isotope dilution-mass spectrometry. Refer to KDIGO guidelines for clinical interpretation. In patients with unstable renal function, e.g. those with acute kidney injury, the eGFR may not accurately reflect actual GFR. Glucose [Mass/Vol] 138 mg/dL High 74 - 99 mg/dL [facility] 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: The [place] Diab[employer] Association (ADA) provides guidance for cutoff values for fasting glucose and random glucose. The ADA defines fasting as no caloric intake for at least 8 hours. Fasting plasma glucose results between 100 to 125 mg/dL indicate increased risk for diabetes (prediabetes). Fasting plasma glucose results greater than or equal to 126 mg/dL meet the criteria for diagnosis of diabetes. In the absence of unequivocal hyperglycemia, results should be confirmed by repeat testing. In a patient with classic symptoms of hyperglycemia or hyperglycemic crisis, random plasma glucose results greater than or equal to 200 mg/dL meet the criteria for diagnosis of diabetes. Reference: Standards of Medical Care in Diabetes 2016, [place] [employer]. Diabetes Care. 2016.39(Suppl 1). Interpretation and review of laboratory results Abnormal [facility] Potassium [Moles/Vol] 4.4 mmol/L 3.7 - 5.1 mmol/L [facility] Protein [Mass/Vol] 6.4 g/dL 6.3 - 8.0 g/dL [facility] Sodium [Moles/Vol] 138 mmol/L 136 - 144 mmol/L [facility] Urea nitrogen [Mass/Vol] 10 mg/dL 7 - 21 mg/dL [facility] Albumin [Mass/Vol] 3.4 g/dL Low 3.9-4.9 [facility] 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: Order Comment: Speci men Type: BLOOD SPECIMENOrdering Facility: [facility] Address: [address] [place] [address] Performed By: #### 2 4323-8 ####[facility] [id number] [place] [address] [place] ALP [Catalytic activity/Vol] 178 U/L High 34-123 [facility] 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: Order Comment: Speci men Type: BLOOD SPECIMENOrdering Facility: [facility] Address: [address] [place] [address] Performed By: #### 2 4323-8 ####[facility] [id number] [place] [address] [place] ALT [Catalytic activity/Vol] 24 U/L Normal 7-38 [facility] 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: Order Comment: Speci men Type: BLOOD SPECIMENOrdering Facility: [facility] Address: [address] [place] [address] Performed By: #### 2 4323-8 ####[facility] [id number] [place] [address] [place] Anion gap [Moles/Vol] 9 mmol/L Normal 8-15 [facility] 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: Order Comment: Speci men Type: BLOOD SPECIMENOrdering Facility: [facility] Address: [address] [place] [address] Performed By: #### 2 4323-8 ####[facility] [id number] [place] [address] [place] AST [Catalytic activity/Vol] 23 U/L Normal 13-35 [facility] 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: Order Comment: Speci men Type: BLOOD SPECIMENOrdering Facility: [facility] Address: [address] [place] [address] Performed By: #### 2 4323-8 ####[facility] [id number] [place] [address] [place] Bilirubin [Mass/Vol] 1.0 mg/dL Normal 0.2-1.3 [facility] 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: Order Comment: Speci men Type: BLOOD SPECIMENOrdering Facility: [facility] Address: [address] [place] [address] Performed By: #### 2 4323-8 ####[facility] [id number] [place] [address] [place] Calcium [Mass/Vol] 8.7 mg/dL Normal 8.5-10.2 [facility] 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: Order Comment: Speci men Type: BLOOD SPECIMENOrdering Facility: [facility] Address: [address] [place] [address] Performed By: #### 2 4323-8 ####[facility] [id number] [place] [address] [place] Chloride [Moles/Vol] 103 mmol/L Normal 98-107 [facility] 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: Order Comment: Speci men Type: BLOOD SPECIMENOrdering Facility: [facility] Address: [address] [place] [address] Performed By: #### 2 4323-8 ####[facility] [id number] [place] [address] [place] CO2 [Moles/Vol] 26 mmol/L Normal 22-30 [facility] 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: Order Comment: Speci men Type: BLOOD SPECIMENOrdering Facility: [facility] Address: [address] [place] [address] Performed By: #### 2 4323-8 ####[facility] [id number] [place] [address] [place] Creatinine [Mass/Vol] 0.44 mg/dL Low 0.58-0.96 [facility] 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: Order Comment: Speci men Type: BLOOD SPECIMENOrdering Facility: [facility] Address: [address] [place] [address] Performed By: #### 2 4323-8 ####[facility] [id number] [place] [address] [place] Creatinine and Glomerular filtration rate.predicted panel (S/P/Bld) 126 mL/min/1.73m??? Normal >=60 [facility] 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: Order Comment: Jeremie gomez Type: BLOOD SPECIMENOrdering Facility: [facility] Address: [address] [place] [address] Result Comment: Adina mated Glomerular Filtration Rate (eGFR) is calculated using the 2020 CKD-EPI creatinine equation. This equation utilizes serum creatinine, sex, and age as parameters. The creatinine assay has traceable calibration to isotope dilution-mass spectrometry. Refer to KDIGO guidelines for clinical interpretation. In patients with unstable renal function, e.g. those with acute kidney injury, the eGFR may not accurately reflect actual GFR. Performed By: #### 2 4323-8 ####[facility] [id number] [place] [address] [place] Glucose [Mass/Vol] 138 mg/dL High 74-99 [facility] 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: Order Comment: Jeremie patricia Type: BLOOD SPECIMENOrdering Facility: [facility] Address: [address] [place] [address] Result Comment: The [place] Diabetes Association (ADA) provides guidance for cutoff values for fasting glucose and random glucose. The ADA defines fasting as no caloric intake for at least 8 hours. Fasting plasma glucose results between 100 to 125 mg/dL indicate increased risk for diabetes (prediabetes).Fasting plasma glucose results greater than or equal to 126 mg/dL meet the criteria for diagnosis of diabetes. In the absence of unequivocal hyperglycemia, results should be confirmed by repeat testing. In a patient with classic symptoms of hyperglycemia or hyperglycemic crisis, random plasma glucose results greater than or equal to 200 mg/dL meet the criteria for diagnosis of diabetes.Reference: Standards of Medical Care in Diabetes 2016, [place] [employer]. Diabetes Care. 2016.39(Suppl 1). Performed By: #### 2 4323-8 ####[facility] [id number] [place] [address] [place] Potassium [Moles/Vol] 4.4 mmol/L Normal 3.7-5.1 [facility] 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: Order Comment: Speci men Type: BLOOD SPECIMENOrdering Facility: [facility] Address: [address] [place] [address] Performed By: #### 2 4323-8 ####[facility] [id number] [place] [address] [place] Protein [Mass/Vol] 6.4 g/dL Normal 6.3-8.0 [facility] 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: Order Comment: Speci men Type: BLOOD SPECIMENOrdering Facility: [facility] Address: [address] [place] [address] Performed By: #### 2 4323-8 ####[facility] [id number] [place] [address] [place] Sodium [Moles/Vol] 138 mmol/L Normal 136-144 [facility] 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: Order Comment: Speci men Type: BLOOD SPECIMENOrdering Facility: [facility] Address: [address] [place] [address] Performed By: #### 2 4323-8 ####[facility] [id number] [place] [address] [place] Urea nitrogen [Mass/Vol] 10 mg/dL Normal 7-21 [facility] 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: Order Comment: Speci men Type: BLOOD SPECIMENOrdering Facility: [facility] Address: [address] [place] [address] Performed By: #### 2 4323-8 ####[facility] [id number] [place] [address] [place] Laboratory - Hematology and Cell countson 10-15-2024 Basophils/100 WBC (Bld) 0.2 % [facility] Eosinophils/100 WBC (Bld) 1.3 % [facility] Erythrocyte distribution width (RBC) [Ratio] 20.7 % High 11.5 - 15.0 % [facility] Hemoglobin (Bld) [Mass/Vol] 8.4 g/dL Low 11.5 - 15.5 g/dL [facility] Lymphocytes/100 WBC (Bld) 2.7 % [facility] MCH (RBC) [Entitic mass] 23.1 pg Low 26.0 - 34.0 pg [facility] MCV (RBC) [Entitic vol] 77.1 fL Low 80.0 - 100.0 fL [facility] Monocytes/100 WBC (Bld) 8.6 % [facility] Neutrophils/100 WBC (Bld) 86.7 % [facility] RBC (Bld) [#/Vol] 3.63 10*6/uL Low 3.90 - 5.2 0 m/uL [facility] No Panel Informationon 10-15 Interpretation and review of laboratory results Abnormal [facility] CNOVon 10-14-2024 CNOV Normal [facility] CASE MANAGEMon 10-11-2024 CASE MANAGEM Normal [facility] CNDSon 10-11-2024 CNDS Normal [facility] THERAPY NTon 10-11-2024 THERAPY NT Normal [facility] THERAPY NT Normal [facility] CBC W Auto Differential pane l (Bld)on 10-10-2024 Basophils (Bld) [#/Vol] 10*3/uL Normal <0.11 [facility] 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: Order Comment: Speci men Type: BLOOD SPECIMENOrdering Facility: [facility] Address: [address] [place] [address] Performed By: #### 5 7021-8 ####[facility] LABCLIA [id number] [place] [address] [place] Basophils/100 WBC (Bld) 0.3 % Normal [facility] 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: Order Comment: Speci men Type: BLOOD SPECIMENOrdering Facility: [facility] Address: [address] [place] [address] Performed By: #### 5 7021-8 ####[facility] LABCLIA [id number] [place] [address] [place] Differential cell count method Nom (Bld) Auto Normal [facility] 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: Order Comment: Speci men Type: BLOOD SPECIMENOrdering Facility: [facility] Address: [address] [place] [address] Performed By: #### 5 7021-8 ####[facility] LABCLIA [id number] [place] [address] [place] Eosinophils (Bld) [#/Vol] 0.06 10*3/uL Normal <0.46 [facility] 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: Order Comment: Speci men Type: BLOOD SPECIMENOrdering Facility: [facility] Address: [address] [place] [address] Performed By: #### 5 7021-8 ####[facility] LABCLIA [id number] [place] [address] [place] Eosinophils/100 WBC (Bld) 0.9 % Normal [facility] 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: Order Comment: Speci men Type: BLOOD SPECIMENOrdering Facility: [facility] Address: [address] [place] [address] Performed By: #### 5 7021-8 ####[facility] LABIA [id number] [place] [address] [place] Erythrocyte distribution width (RBC) [Ratio] 19.9 % High 11.5-15.0 [facility] 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: Order Comment: Speci men Type: BLOOD SPECIMENOrdering Facility: [facility] Address: [address] [place] [address] Performed By: #### 5 7021-8 ####[facility] LABCLIA [id number] [place] [address] [place] Hematocrit (Bld) [Volume fraction] 27.0 % Low 36.0-46.0 [facility] 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: Order Comment: Speci men Type: BLOOD SPECIMENOrdering Facility: [facility] Address: [address] [place] [address] Performed By: #### 5 7021-8 ####[facility] LABCLIA [id number] [place] [address] [place] Hemoglobin (Bld) [Mass/Vol] 7.9 g/dL Low 11.5-15.5 [facility] 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: Order Comment: Speci men Type: BLOOD SPECIMENOrdering Facility: [facility] Address: [address] [place] [address] Performed By: #### 5 7021-8 ####[facility] LABCLIA [id number] [place] [address] [place] Immature granulocytes (Bld) [#/Vol] 0.04 10*3/uL Normal <0.10 [facility] 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: Order Comment: Speci men Type: BLOOD SPECIMENOrdering Facility: [facility] Address: [address] [place] [address] Performed By: #### 5 7021-8 ####[facility] LABCLIA [id number] [place] [address] [place] Immature granulocytes/100 WBC (Bld) 0.6 % Normal [facility] 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: Order Comment: Speci men Type: BLOOD SPECIMENOrdering Facility: [facility] Address: [address] [place] [address] Performed By: #### 5 7021-8 ####[facility] LABIA [id number] [place] [address] [place] Lymphocytes (Bld) [#/Vol] 0.20 10*3/uL Low 1.00-4.00 [facility] 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: Order Comment: Speci men Type: BLOOD SPECIMENOrdering Facility: [facility] Address: [address] [place] [address] Performed By: #### 5 7021-8 ####[facility] LABIA [id number] [place] [address] [place] Lymphocytes/100 WBC (Bld) 3.1 % Normal [facility] 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: Order Comment: Speci men Type: BLOOD SPECIMENOrdering Facility: [facility] Address: [address] [place] [address] Performed By: #### 5 7021-8 ####[facility] LABIA [id number] [place] [address] [place] MCH (RBC) [Entitic mass] 23.5 pg Low 26.0-34.0 [facility] 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: Order Comment: Speci men Type: BLOOD SPECIMENOrdering Facility: [facility] Address: [address] [place] [address] Performed By: #### 5 7021-8 ####[facility] LABIA [id number] [place] [address] [place] MCHC (RBC) [Mass/Vol] 29.3 g/dL Low 30.5-36.0 [facility] 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: Order Comment: Speci men Type: BLOOD SPECIMENOrdering Facility: [facility] Address: [address] [place] [address] Performed By: #### 5 7021-8 ####[facility] LABIA [id number] [place] [address] [place] MCV (RBC) [Entitic vol] 80.4 fL Normal 80.0-100.0 [facility] 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: Order Comment: Speci men Type: BLOOD SPECIMENOrdering Facility: [facility] Address: [address] [place] [address] Performed By: #### 5 7021-8 ####[facility] LABIA [id number] [place] [address] [place] Monocytes (Bld) [#/Vol] 0.10 10*3/uL Normal <0.87 [facility] 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: Order Comment: Speci men Type: BLOOD SPECIMENOrdering Facility: [facility] Address: [address] [place] [address] Performed By: #### 5 7021-8 ####[facility] LABCLIA [id number] [place] [address] [place] Monocytes/100 WBC (Bld) 1.6 % Normal [facility] 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: Order Comment: Speci men Type: BLOOD SPECIMENOrdering Facility: [facility] Address: [address] [place] [address] Performed By: #### 5 7021-8 ####[facility] LABCLIA [id number] [place] [address] [place] Neutrophils (Bld) [#/Vol] 5.97 10*3/uL Normal 1.45-7.50 [facility] 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: Order Comment: Speci men Type: BLOOD SPECIMENOrdering Facility: [facility] Address: [address] [place] [address] Performed By: #### 5 7021-8 ####[facility] LABCLIA [id number] [place] [address] [place] Neutrophils/100 WBC (Bld) 93.5 % Normal [facility] 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: Order Comment: Speci men Type: BLOOD SPECIMENOrdering Facility: [facility] Address: [address] [place] [address] Performed By: #### 5 7021-8 ####[facility] LABCLIA [id number] [place] [address] [place] Nucleated RBC (Bld) [#/Vol] 10*3/uL Normal <0.01 [facility] 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: Order Comment: Speci men Type: BLOOD SPECIMENOrdering Facility: [facility] Address: [address] [place] [address] Performed By: #### 5 7021-8 ####[facility] LABCLIA [id number] [place] [address] [place] Nucleated RBC/100 WBC (Bld) [Ratio] 0.0 /100 WBC Normal [facility] 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: Order Comment: Speci men Type: BLOOD SPECIMENOrdering Facility: [facility] Address: [address] [place] [address] Performed By: #### 5 7021-8 ####[facility] LABIA [id number] [place] [address] [place] Platelet mean volume (Bld) [Entitic vol] 10.8 fL Normal 9.0-12.7 [facility] 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: Order Comment: Speci men Type: BLOOD SPECIMENOrdering Facility: [facility] Address: [address] [place] [address] Performed By: #### 5 7021-8 ####[facility] LABIA [id number] [place] [address] [place] Platelets (Bld) [#/Vol] 204 10*3/uL Normal 150-400 [facility] 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: Order Comment: Speci men Type: BLOOD SPECIMENOrdering Facility: [facility] Address: [address] [place] [address] Performed By: #### 5 7021-8 ####[facility] LABCLIA [id number] [place] [address] [place] RBC (Bld) [#/Vol] 3.36 10*6/uL Low 3.90-5.20 [facility] 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: Order Comment: Speci men Type: BLOOD SPECIMENOrdering Facility: [facility] Address: [address] [place] [address] Performed By: #### 5 7021-8 ####[facility] LABCLIA [id number] [place] [address] [place] WBC (Bld) [#/Vol] 6.39 10*3/uL Normal 3.70-11.00 [facility] 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: Order Comment: Speci men Type: BLOOD SPECIMENOrdering Facility: [facility] Address: [address] [place] [address] Performed By: #### 5 7021-8 ####[facility] LABCLIA [id number] [place] [address] [place] Comprehensive metabolic 2000 panelon 10-10-2024 Albumin [Mass/Vol] 3.4 g/dL Low 3.9-4.9 [facility] 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: Order Comment: Speci men Type: BLOOD SPECIMENOrdering Facility: [facility] Address: [address] [place] [address] Performed By: #### 2 4323-8, 16732-3, 2777- ####[facility] LABCLIA [id number] [place] [address] [place] ALP [Catalytic activity/Vol] 161 U/L High 34-123 [facility] 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: Order Comment: Speci men Type: BLOOD SPECIMENOrdering Facility: [facility] Address: [address] [place] [address] Performed By: #### 2 4323-8, 42367-7, 2777- ####[facility] LABCLIA [id number] [place] [address] [place] ALT [Catalytic activity/Vol] 31 U/L Normal 7-38 [facility] 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: Order Comment: Speci men Type: BLOOD SPECIMENOrdering Facility: [facility] Address: [address] [place] [address] Performed By: #### 2 4323-8, 01503-9, 2777- ####[facility] LABCLIA [id number] [address] [place] [address] [place] Anion gap [Moles/Vol] 11 mmol/L Normal 8-15 [facility] 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: Order Comment: Speci men Type: BLOOD SPECIMENOrdering Facility: [facility] Address: [address] [place] [address] Performed By: #### 2 4323-8, 08921-4, 2776-10 ####[facility] LABCLIA [id number] [place] [address] [place] AST [Catalytic activity/Vol] 28 U/L Normal 13-35 [facility] 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: Order Comment: Speci men Type: BLOOD SPECIMENOrdering Facility: [facility] Address: [address] [place] [address] Performed By: #### 2 4323-8, , 2776-10 ####[facility] LABCLIA [id number] [place] [address] [place] Bilirubin [Mass/Vol] 1.0 mg/dL Normal 0.2-1.3 [facility] 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: Order Comment: Speci men Type: BLOOD SPECIMENOrdering Facility: [facility] Address: [address] [place] [address] Performed By: #### 2 4323-8, , 2776-10 ####[facility] LABCLIA [id number] [place] [address] [place] Calcium [Mass/Vol] 8.9 mg/dL Normal 8.5-10.2 [facility] 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: Order Comment: Speci men Type: BLOOD SPECIMENOrdering Facility: [facility] Address: [address] [place] [address] Performed By: #### 2 4323-8, , 2776-10 ####[facility] LABCLIA [id number] [place] [address] [place] Chloride [Moles/Vol] 106 mmol/L Normal 98-107 [facility] 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: Order Comment: Speci men Type: BLOOD SPECIMENOrdering Facility: [facility] Address: [address] [place] [address] Performed By: #### 2 4323-8, , 2776-10 ####[facility] LABCLIA [id number] [place] [address] [place] CO2 [Moles/Vol] 26 mmol/L Normal 22-30 [facility] 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: Order Comment: Speci men Type: BLOOD SPECIMENOrdering Facility: [facility] Address: [address] [place] [address] Performed By: #### 2 4323-8, , 2776-10 ####[facility] LABCLIA [id number] [place] [address] [place] Creatinine [Mass/Vol] 0.46 mg/dL Low 0.58-0.96 [facility] 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: Order Comment: Speci men Type: BLOOD SPECIMENOrdering Facility: [facility] Address: [address] [place] [address] Performed By: #### 2 4323-8, , 2776-10 ####[facility] LABCLIA [id number] [place] [address] [place] Creatinine and Glomerular filtration rate.predicted panel (S/P/Bld) 125 mL/min/1.73m??? Normal >=60 [facility] 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: Order Comment: Speci men Type: BLOOD SPECIMENOrdering Facility: [facility] Address: [address] [place] [address] Result Comment: Adina mated Glomerular Filtration Rate (eGFR) is calculated using the 2020 CKD-EPI creatinine equation. This equation utilizes serum creatinine, sex, and age as parameters. The creatinine assay has traceable calibration to isotope dilution-mass spectrometry. Refer to KDIGO guidelines for clinical interpretation. In patients with unstable renal function, e.g. those with acute kidney injury, the eGFR may not accurately reflect actual GFR. Performed By: #### 2 4323-8, , 2776-10 ####[facility] LABCLIA [id number] [place] [address] [place] Glucose [Mass/Vol] 71 mg/dL Low 74-99 [facility] 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: Order Comment: Speci men Type: BLOOD SPECIMENOrdering Facility: [facility] Address: [address] [place] [address] Result Comment: The [place] [employer] (ADA) provides guidance for cutoff values for fasting glucose and random glucose. The ADA defines fasting as no caloric intake for at least 8 hours. Fasting plasma glucose results between 100 to 125 mg/dL indicate increased risk for diabetes (prediabetes).Fasting plasma glucose results greater than or equal to 126 mg/dL meet the criteria for diagnosis of diabetes. In the absence of unequivocal hyperglycemia, results should be confirmed by repeat testing. In a patient with classic symptoms of hyperglycemia or hyperglycemic crisis, random plasma glucose results greater than or equal to 200 mg/dL meet the criteria for diagnosis of diabetes.Reference: Standards of Medical Care in Diabetes 2016, [place] [employer]. Diabetes Care. 2016.39(Suppl 1). Performed By: #### 2 4323-8, , 2776-10 ####[facility] LABIA [id number] [place] [address] [place] Potassium [Moles/Vol] 4.3 mmol/L Normal 3.7-5.1 [facility] 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: Order Comment: Speci men Type: BLOOD SPECIMENOrdering Facility: [facility] Address: [address] [place] [address] Performed By: #### 2 4323-8, , 2776-10 ####[facility] LABIA [id number] [place] [address] [place] Protein [Mass/Vol] 6.0 g/dL Low 6.3-8.0 [facility] 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: Order Comment: Speci men Type: BLOOD SPECIMENOrdering Facility: [facility] Address: [address] [place], [place] [address] Performed By: #### 2 4323-8, 06435-2, 2776-10 ####[facility] LABCLIA [id number] [place] [address] [place] Sodium [Moles/Vol] 143 mmol/L Normal 136-144 [facility] 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: Order Comment: Speci men Type: BLOOD SPECIMENOrdering Facility: [facility] Address: [address] [place], [place] [address] Performed By: #### 2 4323-8, 62090-2, 2776-10 ####[facility] LABIA [id number] [place] [address] [place] Urea nitrogen [Mass/Vol] 13 mg/dL Normal 7-21 [facility] 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: Order Comment: Speci men Type: BLOOD SPECIMENOrdering Facility: [facility] Address: [address] [place] [address] Performed By: #### 2 4323-8, 45383-4, 2776-10 ####[facility] [id number] [place] [address] [place] Magnesium SerPl-mCncon 10-10 Magnesium [Mass/Vol] 2.2 mg/dL Normal 1.7-2.3 [facility] 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: Order Comment: Speci men Type: BLOOD SPECIMENOrdering Facility: [facility] Address: [address] [place], [place] [address] Performed By: #### 2 4323-8, 83885-4, 27704-05 ####[facility] LABIA [id number] [place] [address] [place] Phosphate SerPl-mCncon 10-10 Phosphate [Mass/Vol] 3.3 mg/dL Normal 2.7-4.8 [facility] 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: Order Comment: Speci men Type: BLOOD SPECIMENOrdering Facility: [facility] Address: [address] [place] [address] Performed By: #### 2 4323-8, 26671-7, 2777-1 ####[facility] LABCLIA [id number] [place] [address] [place] No Panel Informationon 10-09 [facility] BACTERIA BLD CULT CULTURE, BLOOD: No growth 5 days [facility] Original Ordering Provider: STEPHIE LI [facility] Basic metabolic 2000 panelon 10-08-2024 Anion gap [Moles/Vol] 10 mmol/L Normal 8-15 [facility] 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: Order Comment: Speci men Type: BLOOD SPECIMENOrdering Facility: [facility] Address: [address] [place] [address] Performed By: #### 2 4321-2 ####[facility] LABCLIA [id number] [place] [address] [place] Calcium [Mass/Vol] 8.4 mg/dL Low 8.5-10.2 [facility] 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: Order Comment: Speci men Type: BLOOD SPECIMENOrdering Facility: [facility] Address: [address] [place] [address] Performed By: #### 2 4321-2 ####[facility] LABCLIA [id number] [place] [address] [place] Chloride [Moles/Vol] 108 mmol/L High 98-107 [facility] 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: Order Comment: Speci men Type: BLOOD SPECIMENOrdering Facility: [facility] Address: [address] [place] [address] Performed By: #### 2 4321-2 ####[facility] LABCLIA [id number] [place] [address] [place] CO2 [Moles/Vol] 25 mmol/L Normal 22-30 [facility] 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: Order Comment: Speci men Type: BLOOD SPECIMENOrdering Facility: [facility] Address: [address] [place] [address] Performed By: #### 2 4321-2 ####[facility] LABIA [id number] [place] [address] [place] Creatinine [Mass/Vol] 0.42 mg/dL Low 0.58-0.96 [facility] 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: Order Comment: Speci men Type: BLOOD SPECIMENOrdering Facility: [facility] Address: [address] [place] [address] Performed By: #### 2 4321-2 ####[facility] LABIA [id number] [place] [address] [place] Creatinine and Glomerular filtration rate.predicted panel (S/P/Bld) 128 mL/min/1.73m??? Normal >=60 [facility] 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: Order Comment: Speci men Type: BLOOD SPECIMENOrdering Facility: [facility] Address: [address] [place] [address] Result Comment: Adina mated Glomerular Filtration Rate (eGFR) is calculated using the 2020 CKD-EPI creatinine equation. This equation utilizes serum creatinine, sex, and age as parameters. The creatinine assay has traceable calibration to isotope dilution-mass spectrometry. Refer to KDIGO guidelines for clinical interpretation. In patients with unstable renal function, e.g. those with acute kidney injury, the eGFR may not accurately reflect actual GFR. Performed By: #### 2 4321-2 ####[facility] LABIA [id number] [place] [address] [place] Glucose [Mass/Vol] 110 mg/dL High 74-99 [facility] 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: Order Comment: Speci men Type: BLOOD SPECIMENOrdering Facility: [facility] Address: [address] [place] [address] Result Comment: The [place] Diabetes [employer] (ADA) provides guidance for cutoff values for fasting glucose and random glucose. The ADA defines fasting as no caloric intake for at least 8 hours. Fasting plasma glucose results between 100 to 125 mg/dL indicate increased risk for diabetes (prediabetes).Fasting plasma glucose results greater than or equal to 126 mg/dL meet the criteria for diagnosis of diabetes. In the absence of unequivocal hyperglycemia, results should be confirmed by repeat testing. In a patient with classic symptoms of hyperglycemia or hyperglycemic crisis, random plasma glucose results greater than or equal to 200 mg/dL meet the criteria for diagnosis of diabetes.Reference: Standards of Medical Care in Diabetes 2016, [place] [employer]. Diabetes Care. 2016.39(Suppl 1). Performed By: #### 2 4321-2 ####[facility] LABCLIA [id number] [place] [address] [place] Potassium [Moles/Vol] 4.4 mmol/L Normal 3.7-5.1 [facility] 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: Order Comment: Jeremie gomez Type: BLOOD SPECIMENOrdering Facility: [facility] Address: [address] [place] [address] Performed By: #### 2 4321-2 ####[facility] LABIA [id number] [place] [address] [place] Sodium [Moles/Vol] 143 mmol/L Normal 136-144 [facility] 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: Order Comment: Jeremie gomez Type: BLOOD SPECIMENOrdering Facility: [facility] Address: [address] [place] [address] Performed By: #### 2 4321-2 ####[facility] LABIA [id number] [place] [address] [place] Urea nitrogen [Mass/Vol] 12 mg/dL Normal 7-21 [facility] 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: Order Comment: Pingi patricia Type: BLOOD SPECIMENOrdering Facility: [facility] Address: [address] [place] [address] Performed By: #### 2 4321-2 ####[facility] LABIA [id number] [place] [address] [place] CBC W Auto Differential pane l (Bld)on 10-08-2024 Basophils (Bld) [#/Vol] 10*3/uL Normal <0.11 [facility] 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: Order Comment: Speci men Type: BLOOD SPECIMENOrdering Facility: [facility] Address: [address] [place] [address] Performed By: #### 5 7021-8 ####[facility] LABCLIA [id number] [place] [address] [place] Basophils/100 WBC (Bld) 0.2 % Normal [facility] 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: Order Comment: Speci men Type: BLOOD SPECIMENOrdering Facility: [facility] Address: [address] [place] [address] Performed By: #### 5 7021-8 ####[facility] LABCLIA [id number] [place] [address] [place] Differential cell count method Nom (Bld) Auto Normal [facility] 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: Order Comment: Speci men Type: BLOOD SPECIMENOrdering Facility: [facility] Address: [address] [place] [address] Performed By: #### 5 7021-8 ####[facility] LABCLIA [id number] [place] [address] [place] Eosinophils (Bld) [#/Vol] 10*3/uL Normal <0.46 [facility] 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: Order Comment: Speci men Type: BLOOD SPECIMENOrdering Facility: [facility] Address: [address] [place] [address] Performed By: #### 5 7021-8 ####[facility] LABCLIA [id number] [place] [address] [place] Eosinophils/100 WBC (Bld) 0.0 % Normal [facility] 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: Order Comment: Speci men Type: BLOOD SPECIMENOrdering Facility: [facility] Address: [address] [place] [address] Performed By: #### 5 7021-8 ####[facility] LABIA [id number] [place] [address] [place] Erythrocyte distribution width (RBC) [Ratio] 19.9 % High 11.5-15.0 [facility] 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: Order Comment: Speci men Type: BLOOD SPECIMENOrdering Facility: [facility] Address: [address] [place] [address] Performed By: #### 5 7021-8 ####[facility] LABIA [id number] [place] [address] [place] Hematocrit (Bld) [Volume fraction] 27.7 % Low 36.0-46.0 [facility] 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: Order Comment: Speci men Type: BLOOD SPECIMENOrdering Facility: [facility] Address: [address] [place] [address] Performed By: #### 5 7021-8 ####[facility] LABIA [id number] [place] [address] [place] Hemoglobin (Bld) [Mass/Vol] 8.2 g/dL Low 11.5-15.5 [facility] 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: Order Comment: Speci men Type: BLOOD SPECIMENOrdering Facility: [facility] Address: [address] [place] [address] Performed By: #### 5 7021-8 ####[facility] LABIA [id number] [place] [address] [place] Immature granulocytes (Bld) [#/Vol] 0.10 10*3/uL High <0.10 [facility] 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: Order Comment: Speci men Type: BLOOD SPECIMENOrdering Facility: [facility] Address: [address] [place] [address] Performed By: #### 5 7021-8 ####[facility] LABIA [id number] [place] [address] [place] Immature granulocytes/100 WBC (Bld) 1.8 % Normal [facility] 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: Order Comment: Speci men Type: BLOOD SPECIMENOrdering Facility: [facility] Address: [address] [place] [address] Performed By: #### 5 7021-8 ####[facility] LABCLIA [id number] [place] [address] [place] Lymphocytes (Bld) [#/Vol] 0.10 10*3/uL Low 1.00-4.00 [facility] 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: Order Comment: Speci men Type: BLOOD SPECIMENOrdering Facility: [facility] Address: [address] [place] [address] Performed By: #### 5 7021-8 ####[facility] LABCLIA [id number] [place] [address] [place] Lymphocytes/100 WBC (Bld) 1.8 % Normal [facility] 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: Order Comment: Speci men Type: BLOOD SPECIMENOrdering Facility: [facility] Address: [address] [place] [address] Performed By: #### 5 7021-8 ####[facility] LABCLIA [id number] [place] [address] [place] MCH (RBC) [Entitic mass] 23.5 pg Low 26.0-34.0 [facility] 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: Order Comment: Speci men Type: BLOOD SPECIMENOrdering Facility: [facility] Address: [address] [place] [address] Performed By: #### 5 7021-8 ####[facility] LABCLIA [id number] [place] [address] [place] MCHC (RBC) [Mass/Vol] 29.6 g/dL Low 30.5-36.0 [facility] 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: Order Comment: Speci men Type: BLOOD SPECIMENOrdering Facility: [facility] Address: [address] [place] [address] Performed By: #### 5 7021-8 ####[facility] LABCLIA [id number] [place] [address] [place] MCV (RBC) [Entitic vol] 79.4 fL Low 80.0-100.0 [facility] 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: Order Comment: Speci men Type: BLOOD SPECIMENOrdering Facility: [facility] Address: [address] [place] [address] Performed By: #### 5 7021-8 ####[facility] LABIA [id number] [place] [address] [place] Monocytes (Bld) [#/Vol] 0.47 10*3/uL Normal <0.87 [facility] 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: Order Comment: Speci men Type: BLOOD SPECIMENOrdering Facility: [facility] Address: [address] [place] [address] Performed By: #### 5 7021-8 ####[facility] LABIA [id number] [place] [address] [place] Monocytes/100 WBC (Bld) 8.4 % Normal [facility] 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: Order Comment: Speci men Type: BLOOD SPECIMENOrdering Facility: [facility] Address: [address] [place] [address] Performed By: #### 5 7021-8 ####[facility] LABCLIA [id number] [place] [address] [place] Neutrophils (Bld) [#/Vol] 4.92 10*3/uL Normal 1.45-7.50 [facility] 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: Order Comment: Speci men Type: BLOOD SPECIMENOrdering Facility: [facility] Address: [address] [place] [address] Performed By: #### 5 7021-8 ####[facility] LABIA [id number] [place] [address] [place] Neutrophils/100 WBC (Bld) 87.8 % Normal [facility] 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: Order Comment: Speci men Type: BLOOD SPECIMENOrdering Facility: [facility] Address: [address] [place] [address] Performed By: #### 5 7021-8 ####[facility] LABCLIA [id number] [place] [address] [place] Nucleated RBC (Bld) [#/Vol] 0.02 10*3/uL High <0.01 [facility] 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: Order Comment: Speci men Type: BLOOD SPECIMENOrdering Facility: [facility] Address: [address] [place] [address] Performed By: #### 5 7021-8 ####[facility] LABCLIA [id number] [place] [address] [place] Nucleated RBC/100 WBC (Bld) [Ratio] 0.4 /100 WBC Normal [facility] 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: Order Comment: Speci men Type: BLOOD SPECIMENOrdering Facility: [facility] Address: [address] [place] [address] Performed By: #### 5 7021-8 ####[facility] LABCLIA [id number] [place] [address] [place] Platelet mean volume (Bld) [Entitic vol] 11.3 fL Normal 9.0-12.7 [facility] 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: Order Comment: Speci men Type: BLOOD SPECIMENOrdering Facility: [facility] Address: [address] [place] [address] Performed By: #### 5 7021-8 ####[facility] LABCLIA [id number] [place] [address] [place] Platelets (Bld) [#/Vol] 187 10*3/uL Normal 150-400 [facility] 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: Order Comment: Speci men Type: BLOOD SPECIMENOrdering Facility: [facility] Address: [address] [place] [address] Performed By: #### 5 7021-8 ####[facility] LABIA [id number] [place] [address] [place] RBC (Bld) [#/Vol] 3.49 10*6/uL Low 3.90-5.20 [facility] 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: Order Comment: Speci men Type: BLOOD SPECIMENOrdering Facility: [facility] Address: [address] [place] [address] Performed By: #### 5 7021-8 ####[facility] LABIA [id number] [place] [address] [place] WBC (Bld) [#/Vol] 5.60 10*3/uL Normal 3.70-11.00 [facility] 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: Order Comment: Speci men Type: BLOOD SPECIMENOrdering Facility: [facility] Address: [address] [place] [address] Performed By: #### 5 7021-8 ####[facility] LABIA [id number] [place] [address] [place] CBC panel Auto (Bld)on 10-08 Erythrocyte distribution width (RBC) [Ratio] 19.8 % High 11.5-15.0 [facility] 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: Order Comment: Speci men Type: BLOOD SPECIMENOrdering Facility: [facility] Address: [address] [place] [address] Performed By: #### 5 8410-2 ####[facility] LABIA [id number] [place] [address] [place] Hematocrit (Bld) [Volume fraction] 26.7 % Low 36.0-46.0 [facility] 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: Order Comment: Speci men Type: BLOOD SPECIMENOrdering Facility: [facility] Address: [address] [place] [address] Performed By: #### 5 8410-2 ####[facility] LABIA [id number] [place] [address] [place] Hemoglobin (Bld) [Mass/Vol] 7.9 g/dL Low 11.5-15.5 [facility] 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: Order Comment: Speci men Type: BLOOD SPECIMENOrdering Facility: [facility] Address: [address] [place] [address] Performed By: #### 5 8410-2 ####[facility] LABIA [id number] [place] [address] [place] MCH (RBC) [Entitic mass] 23.5 pg Low 26.0-34.0 [facility] 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: Order Comment: Speci men Type: BLOOD SPECIMENOrdering Facility: [facility] Address: [address] [place] [address] Performed By: #### 5 8410-2 ####[facility] [id number] [place] [address] [place] MCHC (RBC) [Mass/Vol] 29.6 g/dL Low 30.5-36.0 [facility] 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: Order Comment: Speci men Type: BLOOD SPECIMENOrdering Facility: [facility] Address: [address] [place] [address] Performed By: #### 5 8410-2 ####[facility] LABIA [id number] [place] [address] [place] MCV (RBC) [Entitic vol] 79.5 fL Low 80.0-100.0 [facility] 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: Order Comment: Speci men Type: BLOOD SPECIMENOrdering Facility: [facility] Address: [address] [place] [address] Performed By: #### 5 8410-2 ####[facility] [id number] [place] [address] [place] Nucleated RBC (Bld) [#/Vol] 0.03 10*3/uL High <0.01 [facility] 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: Order Comment: Speci men Type: BLOOD SPECIMENOrdering Facility: [facility] Address: [address] [place] [address] Performed By: #### 5 8410-2 ####[facility] LABCLIA [id number] [place] [address] [place] Platelet mean volume (Bld) [Entitic vol] 10.8 fL Normal 9.0-12.7 [facility] 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: Order Comment: Speci men Type: BLOOD SPECIMENOrdering Facility: [facility] Address: [address] [place] [address] Performed By: #### 5 8410-2 ####[facility] LABCLIA [id number] [place] [address] [place] Platelets (Bld) [#/Vol] 189 10*3/uL Normal 150-400 [facility] 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: Order Comment: Speci men Type: BLOOD SPECIMENOrdering Facility: [facility] Address: [address] [place] [address] Performed By: #### 5 8410-2 ####[facility] LABCLIA [id number] [place] [address] [place] RBC (Bld) [#/Vol] 3.36 10*6/uL Low 3.90-5.20 [facility] 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: Order Comment: Speci men Type: BLOOD SPECIMENOrdering Facility: [facility] Address: [address] [place] [address] Performed By: #### 5 8410-2 ####[facility] LABCLIA [id number] [place] [address] [place] WBC (Bld) [#/Vol] 6.27 10*3/uL Normal 3.70-11.00 [facility] 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: Order Comment: Speci men Type: BLOOD SPECIMENOrdering Facility: [facility] Address: [address] [place] [address] Result Comment: No c lot detected.Microtainer sample. Performed By: #### 5 8410-2 ####[facility] LABCLIA [id number] [address] [address] [place] CONSULT PROGon 10-08-2024 CONSULT PROG Normal [facility] CONSULT PROG Normal [facility] Comprehensive metabolic 2000 panelon 10-08-2024 Albumin [Mass/Vol] 3.1 g/dL Low 3.9-4.9 [facility] 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: Order Comment: Speci men Type: BLOOD SPECIMENOrdering Facility: [facility] Address: [address] [place] [address] Performed By: #### 2 4323-8, 2777-1, 3083-, ####[facility] LABCLIA [id number] [place] [address] [place] ALP [Catalytic activity/Vol] 144 U/L High 34-123 [facility] 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: Order Comment: Speci men Type: BLOOD SPECIMENOrdering Facility: [facility] Address: [address] [place] [address] Performed By: #### 2 4323-8, 2777-1, 3083-, 68660-6 ####[facility] LABCLIA [id number] [place] [address] [place] ALT [Catalytic activity/Vol] 28 U/L Normal 7-38 [facility] 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: Order Comment: Speci men Type: BLOOD SPECIMENOrdering Facility: [facility] Address: [address] [place] [address] Performed By: #### 2 4323-8, 2777-1, 308-1, 34602-3 ####[facility] LABCLIA [id number] [place] [address] [place] Anion gap [Moles/Vol] 12 mmol/L Normal 8-15 [facility] 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: Order Comment: Speci men Type: BLOOD SPECIMENOrdering Facility: [facility] Address: [address] [place] [address] Performed By: #### 2 4323-8, 2777-1, 3084-1, 11415-0 ####[facility] LABCLIA [id number] [place] [address] [place] AST [Catalytic activity/Vol] 23 U/L Normal 13-35 [facility] 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: Order Comment: Speci men Type: BLOOD SPECIMENOrdering Facility: [facility] Address: [address] [place] [address] Performed By: #### 2 4323-8, 2777-1, 308-1, 25493-4 ####[facility] LABCLIA [id number] [place] [address] [place] Bilirubin [Mass/Vol] 0.7 mg/dL Normal 0.2-1.3 [facility] 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: Order Comment: Speci men Type: BLOOD SPECIMENOrdering Facility: [facility] Address: [address] [place] [address] Performed By: #### 2 4323-8, 2777-1, 3083-1, 53935-5 ####[facility] LABCLIA [id number] [place] [address] [place] Calcium [Mass/Vol] 8.4 mg/dL Low 8.5-10.2 [facility] 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: Order Comment: Speci men Type: BLOOD SPECIMENOrdering Facility: [facility] Address: [address] [place] [address] Performed By: #### 2 4323-8, 2777-1, 3084-1, 71810-7 ####[facility] LABCLIA [id number] [place] [address] [place] Chloride [Moles/Vol] 106 mmol/L Normal 98-107 [facility] 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: Order Comment: Speci men Type: BLOOD SPECIMENOrdering Facility: [facility] Address: [address] [place], [place] [address] Performed By: #### 2 4323-8, 2777-1, 3084-1, 66436-7 ####[facility] LABCLIA [id number] [place] [address] [place] CO2 [Moles/Vol] 22 mmol/L Normal 22-30 [facility] 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: Order Comment: Speci men Type: BLOOD SPECIMENOrdering Facility: [facility] Address: [address] [place] [address] Performed By: #### 2 4323-8, 2777-1, 3084-1, 82226-7 ####[facility] LABCLIA [id number] [place] [address] [place] Creatinine [Mass/Vol] 0.40 mg/dL Low 0.58-0.96 [facility] 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: Order Comment: Speci men Type: BLOOD SPECIMENOrdering Facility: [facility] Address: [address] [place] [address] Performed By: #### 2 4323-8, 2777-1, 3084-1, 67976-1 ####[facility] LABCLIA [id number] [place] [address] [place] Creatinine and Glomerular filtration rate.predicted panel (S/P/Bld) 129 mL/min/1.73m??? Normal >=60 [facility] 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: Order Comment: Speci men Type: BLOOD SPECIMENOrdering Facility: [facility] Address: [address] [place] [address] Result Comment: Adina mated Glomerular Filtration Rate (eGFR) is calculated using the 2020 CKD-EPI creatinine equation. This equation utilizes serum creatinine, sex, and age as parameters. The creatinine assay has traceable calibration to isotope dilution-mass spectrometry. Refer to KDIGO guidelines for clinical interpretation. In patients with unstable renal function, e.g. those with acute kidney injury, the eGFR may not accurately reflect actual GFR. Performed By: #### 2 4323-8, 2777-1, 3083-, ####[facility] LABCLIA [id number] [address] [address] [place] Glucose [Mass/Vol] 139 mg/dL High 74-99 [facility] 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: Order Comment: Jeremie gomez Type: BLOOD SPECIMENOrdering Facility: [facility] Address: [address] [place] [address] Result Comment: The [place] [employer] (ADA) provides guidance for cutoff values for fasting glucose and random glucose. The ADA defines fasting as no caloric intake for at least 8 hours. Fasting plasma glucose results between 100 to 125 mg/dL indicate increased risk for diabetes (prediabetes).Fasting plasma glucose results greater than or equal to 126 mg/dL meet the criteria for diagnosis of diabetes. In the absence of unequivocal hyperglycemia, results should be confirmed by repeat testing. In a patient with classic symptoms of hyperglycemia or hyperglycemic crisis, random plasma glucose results greater than or equal to 200 mg/dL meet the criteria for diagnosis of diabetes.Reference: Standards of Medical Care in Diabetes 2016, [place] [employer]. Diabetes Care. 2016.39(Suppl 1). Performed By: #### 2 4323-8, 2777-1, 3083-10, ####[facility] LABCLIA [id number] [address] [address] [place] Potassium [Moles/Vol] 5.1 mmol/L Normal 3.7-5.1 [facility] 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: Order Comment: Jeremie gomez Type: BLOOD SPECIMENOrdering Facility: [facility] Address: [address] [place] [address] Performed By: #### 2 4323-8, 2777-1, 3083-, ####[facility] LABCLIA [id number] [address] [address] [place] Protein [Mass/Vol] 6.1 g/dL Low 6.3-8.0 [facility] 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: Order Comment: Speci men Type: BLOOD SPECIMENOrdering Facility: [facility] Address: [address] [place] [address] Performed By: #### 2 4323-8, 2777-1, 3084-1, 80911-2 ####[facility] LABCLIA [id number] [place] [address] [place] Sodium [Moles/Vol] 140 mmol/L Normal 136-144 [facility] 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: Order Comment: Speci men Type: BLOOD SPECIMENOrdering Facility: [facility] Address: [address] [place] [address] Performed By: #### 2 4323-8, 2777-1, 308-1, 28733-8 ####[facility] LABCLIA [id number] [place] [address] [place] Urea nitrogen [Mass/Vol] 10 mg/dL Normal 7-21 [facility] 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: Order Comment: Speci men Type: BLOOD SPECIMENOrdering Facility: [facility] Address: [address] [place] [address] Performed By: #### 2 4323-8, 2777-1, 3084-1, 07229-4 ####[facility] LABCLIA [id number] [place] [address] [place] Fibrinogen PPP-mCncon 2024 Fibrinogen Coag (PPP) [Mass/Vol] mg/dL High 200-400 [facility] 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: Order Comment: Speci men Type: BLOOD SPECIMENOrdering Facility: [facility] Address: [address] [place] [address] Result Comment: Samp le checked for clot.Result rechecked. Performed By: #### 3 255-7, 66297-2 ####[facility] LABCLIA [id number] [place] [address] [place] Magnesium SerPl-mCncon 10-08 Magnesium [Mass/Vol] 2.2 mg/dL Normal 1.7-2.3 [facility] 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: Order Comment: Speci men Type: BLOOD SPECIMENOrdering Facility: [facility] Address: [address] [place] [address] Performed By: #### 2 4323-8, 2777-1, 3084-1, 56105-4 ####[facility] LABCLIA [id number] [place] [address] [place] NUTRITIONon 10-08-2024 NUTRITION Normal [facility] PT panel Coag (PPP)on 2024 INR Coag (PPP) [Relative time] 1.2 {INR} Normal 0.9-1.3 [facility] 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: Order Comment: Speci patricia Type: BLOOD SPECIMENOrdering Facility: [facility] Address: [address] [place] [address] Result Comment: Dorene min K Antagonist (VKA) Therapeutic Range: INR 2 to 3 (Target INR of 2.5)Note: For patients treated with VKA drugs, such as warfarin, the [place] [employer] 2012 Guideline recommends a therapeutic INR range of 2 to 3 (target INR of 2.5). This recommendation includes high-risk patients with antiphospholipid syndrome with previous arterial or venous thromboembolism, current-generation mechanical or bioprosthetic aortic heart valve replacement.Note: Patients with mechanical aortic valve replacement and additional risk factors for thromboembolic events (atrial fibrillation, previous thromboembolism, LV dysfunction, hypercoagulable conditions) or an older generation mechanical AVR (i.e., ball in-Cage) or any mechanical MVR should have a INR therapeutic range of 2.5 to 3.5 (target INR of 3).Dayan HILLIARD, et al. Chest 2012, 141:7S-47SMarla POLK, et al. [facility] 2017, 70: 252-289 Performed By: #### 3 255-7, 19795-5 ####[facility] LABCLIA [id number] [place] [address] [place] PT Coag (PPP) [Time] 12.7 s Normal 9.7-13.0 [facility] 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: Order Comment: Speci men Type: BLOOD SPECIMENOrdering Facility: [facility] Address: [address] [place] [address] Performed By: #### 3 255-7, 56510-1 ####[facility] LABIA [id number] [place] [address] [place] Phosphate SerPl-mCncon 10-08 Phosphate [Mass/Vol] 3.1 mg/dL Normal 2.7-4.8 [facility] 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: Order Comment: Speci men Type: BLOOD SPECIMENOrdering Facility: [facility] Address: [address] [place] [address] Performed By: #### 2 4323-8, 2777-1, 3084-1, 90446-8 ####[facility] LABIA [id number] [place] [address] [place] THERAPY NTon 10-08-2024 THERAPY NT Normal [facility] THERAPY NT Normal [facility] Urate SerPl-mCncon Urate [Mass/Vol] 0.9 mg/dL Low 2.5-6.6 [facility] 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: Order Comment: Speci men Type: BLOOD SPECIMENOrdering Facility: [facility] Address: [address] [place], [place] [address] Performed By: #### 2 4323-8, 2777-1, 3084-1, 49047-2 ####[facility] LABIA [id number] [address] [address] [place] BRIEF OP NOTon 10-07-2024 BRIEF OP NOT Normal [facility] CASE MANAGEMon 10-07-2024 CASE MANAGEM Normal [facility] CBC W Auto Differential pane l (Bld)on 10-07-2024 Basophils (Bld) [#/Vol] 0.04 10*3/uL Normal <0.11 [facility] Comment on above: Order Comment: Speci men Type: BLOOD SPECIMENOrdering Facility: [facility] Address: [address] [place] [address] Performed By: #### 5 7021-8 ####[facility] LABCLIA [id number] [place] [address] [place] Basophils/100 WBC (Bld) 0.8 % Normal [facility] Comment on above: Order Comment: Speci men Type: BLOOD SPECIMENOrdering Facility: [facility] Address: [address] [place] [address] Performed By: #### 5 7021-8 ####[facility] LABCLIA [id number] [place] [address] [place] Differential cell count method Nom (Bld) Auto Normal [facility] Comment on above: Order Comment: Speci men Type: BLOOD SPECIMENOrdering Facility: [facility] Address: [address] [place] [address] Performed By: #### 5 7021-8 ####[facility] LABCLIA [id number] [place] [address] [place] Eosinophils (Bld) [#/Vol] 0.03 10*3/uL Normal <0.46 [facility] Comment on above: Order Comment: Speci men Type: BLOOD SPECIMENOrdering Facility: [facility] Address: [address] [place] [address] Performed By: #### 5 7021-8 ####[facility] LABCLIA [id number] [place] [address] [place] Eosinophils/100 WBC (Bld) 0.6 % Normal [facility] Comment on above: Order Comment: Speci men Type: BLOOD SPECIMENOrdering Facility: [facility] Address: [address] [place] [address] Performed By: #### 5 7021-8 ####[facility] LABCLIA [id number] [place] [address] [place] Erythrocyte distribution width (RBC) [Ratio] 20.2 % High 11.5-15.0 [facility] Comment on above: Order Comment: Speci men Type: BLOOD SPECIMENOrdering Facility: [facility] Address: [address] [place] [address] Performed By: #### 5 7021-8 ####[facility] LABIA [id number] [place] [address] [place] Hematocrit (Bld) [Volume fraction] 37.3 % Normal 36.0-46.0 [facility] Comment on above: Order Comment: Speci men Type: BLOOD SPECIMENOrdering Facility: [facility] Address: [address] [place] [address] Performed By: #### 5 7021-8 ####[facility] LABIA [id number] [place] [address] [place] Hemoglobin (Bld) [Mass/Vol] 11.0 g/dL Low 11.5-15.5 [facility] Comment on above: Order Comment: Speci men Type: BLOOD SPECIMENOrdering Facility: [facility] Address: [address] [place] [address] Performed By: #### 5 7021-8 ####[facility] LABIA [id number] [place] [address] [place] Immature granulocytes (Bld) [#/Vol] 0.12 10*3/uL High <0.10 [facility] Comment on above: Order Comment: Speci men Type: BLOOD SPECIMENOrdering Facility: [facility] Address: [address] [place] [address] Performed By: #### 5 7021-8 ####[facility] LABCLIA [id number] [place] [address] [place] Immature granulocytes/100 WBC (Bld) 2.3 % Normal [facility] Comment on above: Order Comment: Speci men Type: BLOOD SPECIMENOrdering Facility: [facility] Address: [address] [place] [address] Performed By: #### 5 7021-8 ####[facility] LABCLIA [id number] [place] [address] [place] Lymphocytes (Bld) [#/Vol] 0.25 10*3/uL Low 1.00-4.00 [facility] Comment on above: Order Comment: Speci men Type: BLOOD SPECIMENOrdering Facility: [facility] Address: [address] [place] [address] Performed By: #### 5 7021-8 ####[facility] LABCLIA [id number] [place] [address] [place] Lymphocytes/100 WBC (Bld) 4.9 % Normal [facility] Comment on above: Order Comment: Speci men Type: BLOOD SPECIMENOrdering Facility: [facility] Address: [address] [place] [address] Performed By: #### 5 7021-8 ####[facility] LABCLIA [id number] [place] [address] [place] MCH (RBC) [Entitic mass] 23.1 pg Low 26.0-34.0 [facility] Comment on above: Order Comment: Speci men Type: BLOOD SPECIMENOrdering Facility: [facility] Address: [address] [place] [address] Performed By: #### 5 7021-8 ####[facility] LABCLIA [id number] [place] [address] [place] MCHC (RBC) [Mass/Vol] 29.5 g/dL Low 30.5-36.0 [facility] Comment on above: Order Comment: Speci men Type: BLOOD SPECIMENOrdering Facility: [facility] Address: [address] [place] [address] Performed By: #### 5 7021-8 ####[facility] LABCLIA [id number] [place] [address] [place] MCV (RBC) [Entitic vol] 78.4 fL Low 80.0-100.0 [facility] Comment on above: Order Comment: Speci men Type: BLOOD SPECIMENOrdering Facility: [facility] Address: [address] [place] [address] Performed By: #### 5 7021-8 ####[facility] LABCLIA [id number] [place] [address] [place] Monocytes (Bld) [#/Vol] 0.37 10*3/uL Normal <0.87 [facility] Comment on above: Order Comment: Speci men Type: BLOOD SPECIMENOrdering Facility: [facility] Address: [address] [place] [address] Performed By: #### 5 7021-8 ####[facility] LABCLIA [id number] [place] [address] [place] Monocytes/100 WBC (Bld) 7.2 % Normal [facility] Comment on above: Order Comment: Speci men Type: BLOOD SPECIMENOrdering Facility: [facility] Address: [address] [place] [address] Performed By: #### 5 7021-8 ####[facility] LABCLIA [id number] [place] [address] [place] Neutrophils (Bld) [#/Vol] 4.31 10*3/uL Normal 1.45-7.50 [facility] Comment on above: Order Comment: Speci men Type: BLOOD SPECIMENOrdering Facility: [facility] Address: [address] [place] [address] Performed By: #### 5 7021-8 ####[facility] LABCLIA [id number] [place] [address] [place] Neutrophils/100 WBC (Bld) 84.2 % Normal [facility] Comment on above: Order Comment: Speci men Type: BLOOD SPECIMENOrdering Facility: [facility] Address: [address] [place] [address] Performed By: #### 5 7021-8 ####[facility] LABCLIA [id number] [place] [address] [place] Nucleated RBC (Bld) [#/Vol] 10*3/uL Normal <0.01 [facility] Comment on above: Order Comment: Speci men Type: BLOOD SPECIMENOrdering Facility: [facility] Address: [address] [place] [address] Performed By: #### 5 7021-8 ####[facility] LABCLIA [id number] [place] [address] [place] Nucleated RBC/100 WBC (Bld) [Ratio] 0.0 /100 WBC Normal [facility] Comment on above: Order Comment: Speci men Type: BLOOD SPECIMENOrdering Facility: [facility] Address: [address] [place] [address] Performed By: #### 5 7021-8 ####[facility] LABIA [id number] [place] [address] [place] Platelet mean volume (Bld) [Entitic vol] 10.4 fL Normal 9.0-12.7 [facility] Comment on above: Order Comment: Speci men Type: BLOOD SPECIMENOrdering Facility: [facility] Address: [address] [place] [address] Performed By: #### 5 7021-8 ####[facility] LABCLIA [id number] [place] [address] [place] Platelets (Bld) [#/Vol] 138 10*3/uL Low 150-400 [facility] Comment on above: Order Comment: Speci men Type: BLOOD SPECIMENOrdering Facility: [facility] Address: [address] [place] [address] Result Comment: Micr otainer sample. Results checked and verified.No clot detected. Performed By: #### 5 7021-8 ####[facility] LABCLIA [id number] [place] [address] [place] RBC (Bld) [#/Vol] 4.76 10*6/uL Normal 3.90-5.20 [facility] Comment on above: Order Comment: Speci men Type: BLOOD SPECIMENOrdering Facility: [facility] Address: [address] [place] [address] Performed By: #### 5 7021-8 ####[facility] LABCLIA [id number] [place] [address] [place] WBC (Bld) [#/Vol] 5.12 10*3/uL Normal 3.70-11.00 [facility] Comment on above: Order Comment: Speci men Type: BLOOD SPECIMENOrdering Facility: [facility] Address: [address] [place] [address] Result Comment: Micr otainer sample. Performed By: #### 5 7021-8 ####[facility] LABCLIA [id number] [place] [address] [place] [facility] RESP PATH 12B PNL SPEC N AA+PROBEon 10-07-2024 [facility] RESP PATH 12B PNL SPEC JANET+PROBE INFLUENZA A RNA: Not detected [facility] RESP PATH 12B PNL SPEC JANET+PROBE INFLUENZA B RNA: Not detected [facility] RESP PATH 12B PNL SPEC JANET+PROBE RESPIRATORY SYNCYTIAL VIRUS (RSV) RNA: Not detected [facility] RESP PATH 12B PNL SPEC JANET+PROBE HUMAN METAPNEUMOVIRUS (HMPV) RNA: Not detected [facility] RESP PATH 12B PNL SPEC JANET+PROBE HUMAN RHINOVIRUS/ENTEROVIRUS RNA: Not detected [facility] RESP PATH 12B PNL SPEC JANET+PROBE ADENOVIRUS DNA: Not detected [facility] RESP PATH 12B PNL SPEC JANET+PROBE PARAINFLUENZA 1 RNA: Not detected [facility] RESP PATH 12B PNL SPEC JANET+PROBE PARAINFLUENZA 2 RNA: Not detected [facility] RESP PATH 12B PNL SPEC JANET+PROBE PARAINFLUENZA 3 RNA: Not detected [facility] RESP PATH 12B PNL SPEC JANET+PROBE PARAINFLUENZA 4 RNA: Not detected [facility] RESP PATH 12B PNL SPEC JANET+PROBE CORONAVIRUS 229E RNA: Not detected [facility] RESP PATH 12B PNL SPEC JANET+PROBE CORONAVIRUS OC43 RNA: Not detected [facility] RESP PATH 12B PNL SPEC JANET+PROBE CORONAVIRUS NL63 RNA: Not detected [facility] RESP PATH 12B PNL SPEC JANET+PROBE CORONAVIRUS HKU1 RNA: Not detected [facility] RESP PATH 12B PNL SPEC JANET+PROBE CHLAMYDIA PNEUMONIAE DNA: Not detected [facility] RESP PATH 12B PNL SPEC JANET+PROBE MYCOPLASMA PNEUMONIAE DNA: Not detected [facility] RESP PATH 12B PNL SPEC JANET+PROBE BORDETELLA PERTUSSIS DNA: Not detected [facility] RESP PATH 12B PNL SPEC JANET+PROBE BORDETELLA PARAPERTUSSIS DNA: Not detected [facility] SARS-CoV-2 (COVID-19) RNA JANET+probe Ql (Unsp spec) SARS-COV-2 (AGENT OF COVID-19) RNA: Not detected [facility] Original Ordering Provider: ALICE BEACHISYND [facility] CNPNon 10-07-2024 CNPN Normal [facility] CONSULT PROGon 10-07-2024 CONSULT PROG Normal [facility] CSF MANUAL DIFFon 10-07-2024 DIF TTL, CSF 28 cells counted Normal [facility] Comment on above: Order Comment: Speci men Type: CEREBROSPINAL FLUID SPECIMENOrdering Facility: [facility] Address: [address] [place] [address] Result Comment: Less than 100 cells were counted due to low cellularity of the specimen; therefore, the total differential percentage may be subject to rounding error. Performed By: #### F CLLP, [id number], [facility] CENTERSFR, 77049-5, 2342-4, 2880-3 ####[facility] LABCLIA [id number] [address] [address] [place] LYMPH%, CSF 61 % Normal 50-90 [facility] Comment on above: Order Comment: Speci men Type: CEREBROSPINAL FLUID SPECIMENOrdering Facility: [facility] Address: [address] [place] [address] Performed By: #### F CLLP, [id number], CCCSFR, 11103-9, 2342-4, 2880-3 ####[facility] LABCLIA [id number] [address] [address] [place] MONO%, CSF 39 % Normal 10-50 [facility] Comment on above: Order Comment: Speci men Type: CEREBROSPINAL FLUID SPECIMENOrdering Facility: [facility] Address: [address] [place] [address] Performed By: #### F CLLP, [id number], CCCSFR, 16136-4, 2342-4, 2880-3 ####[facility] LABCLIA [id number] [address] [address] [place] CSF PATHOLOGIST INTERPRETATI ONon 10-07-2024 CSF STAFF REVIEW Negative Normal [facility] Comment on above: Order Comment: Speci men Type: CEREBROSPINAL FLUID SPECIMENOrdering Facility: [facility] Address: [address] [place] [address] Performed By: #### F CLLP, [id number], CCCSFR, 78717-3, 2342-4, 2880-3 ####[facility] LABCLIA [id number] [address] [address] [place] Pathologist name Reviewed by Radha Ferrari M.D., Ph.D Normal [facility] Comment on above: Order Comment: Speci men Type: CEREBROSPINAL FLUID SPECIMENOrdering Facility: [facility] Address: [address] [place] [address] Performed By: #### F CLLP, [id number], CCCSFR, 86606-5, 2342-4, 2880-3 ####[facility] LABCLIA [id number] [place] [address] [place] Cell count panel (CSF)on Clarity (CSF) Clear Normal Clear [facility] Comment on above: Order Comment: Speci men Type: CEREBROSPINAL FLUID SPECIMENOrdering Facility: [facility] Address: [address] [place] [address] Performed By: #### F CLLP, [id number], CCCSFR, 61691-5, 2342-4, 2880-3 ####[facility] LABCLIA [id number] [place] [address] [place] Clarity (Unsp spec) Not Indicated Normal Clear [facility] Comment on above: Order Comment: Speci men Type: CEREBROSPINAL FLUID SPECIMENOrdering Facility: [facility] Address: [address] [place] [address] Performed By: #### F CLLP, [id number], CCCSFR, 84613-4, 2342-4, 2880-3 ####[facility] LABCLIA [id number] [address] [place] Color (CSF) Colorless Normal Colorless [facility] Comment on above: Order Comment: Speci men Type: CEREBROSPINAL FLUID SPECIMENOrdering Facility: [facility] Address: [address] [place] [address] Performed By: #### F CLLP, [id number], CCCSFR, 55928-0, 2342-4, 2880-3 ####[facility] LABCLIA [id number] [place] [address] [place] Color (Spun CSF) Not Indicated Normal Colorless [facility] Comment on above: Order Comment: Speci men Type: CEREBROSPINAL FLUID SPECIMENOrdering Facility: [facility] Address: [address], [place] [address] Performed By: #### F CLLP, [id number], CCCSFR, 58759-5, 2342-4, 2880-3 ####[facility] LABCLIA [id number] [place] [address] [place] CSF TUBE NUMBER Tube 1 Normal [facility] Comment on above: Order Comment: Speci men Type: CEREBROSPINAL FLUID SPECIMENOrdering Facility: [facility] Address: [address] [place] [address] Performed By: #### F CLLP, [id number], CCCSFR, 21762-5, 2342-4, 2880-3 ####[facility] LABCLIA [id number] [place] [address] [place] RBC Manual cnt (CSF) [#/Vol] 2 cells/uL Normal 0-5 [facility] Comment on above: Order Comment: Speci men Type: CEREBROSPINAL FLUID SPECIMENOrdering Facility: [facility] Address: [address] [place] [address] Performed By: #### F CLLP, [id number], CCCSFR, 40920-0, 2342-4, 2880-3 ####[facility] LABCLIA [id number] [place] [address] [place] WBC Manual cnt (CSF) [#/Vol] 0 cells/uL Normal 0-5 [facility] Comment on above: Order Comment: Speci men Type: CEREBROSPINAL FLUID SPECIMENOrdering Facility: [facility] Address: [address] [place] [address] Performed By: #### F CLLP, [id number], CCCSFR, 71933-8, 2342-4, 2880-3 ####[facility] LABCLIA [id number] [place] [address] [place] Comprehensive metabolic 2000 panelon 10-07-2024 Albumin [Mass/Vol] 2.7 g/dL Low 3.9-4.9 [facility] Comment on above: Order Comment: Speci men Type: BLOOD SPECIMENOrdering Facility: [facility] Address: [address] [place], [place] [address] Performed By: #### 2 777-1, 308-1, ####[facility] LABCLIA [id number] [place] [address] [place] ALP [Catalytic activity/Vol] 117 U/L Normal 34-123 [facility] Comment on above: Order Comment: Speci men Type: BLOOD SPECIMENOrdering Facility: [facility] Address: [address] [place] [address] Performed By: #### 2 777-1, 308-1, ####[facility] LABCLIA [id number] [place] [address] [place] ALT [Catalytic activity/Vol] 24 U/L Normal 7-38 [facility] Comment on above: Order Comment: Speci men Type: BLOOD SPECIMENOrdering Facility: [facility] Address: [address] [place] [address] Performed By: #### 2 777-1, 3083-10, ####[facility] LABIA [id number] [place] [address] [place] Anion gap [Moles/Vol] 9 mmol/L Normal 8-15 [facility] Comment on above: Order Comment: Speci men Type: BLOOD SPECIMENOrdering Facility: [facility] Address: [address] [place] [address] Performed By: #### 2 777-1, 3083-, 24503-0 ####[facility] LABIA [id number] [place] [address] [place] AST [Catalytic activity/Vol] 17 U/L Normal 13-35 [facility] Comment on above: Order Comment: Speci men Type: BLOOD SPECIMENOrdering Facility: [facility] Address: [address] [place] [address] Performed By: #### 2 777-1, 308-, ####[facility] LABCLIA [id number] [place] [address] [place] Bilirubin [Mass/Vol] 1.0 mg/dL Normal 0.2-1.3 [facility] Comment on above: Order Comment: Speci men Type: BLOOD SPECIMENOrdering Facility: [facility] Address: [address] [place] [address] Performed By: #### 2 777-1, 30801-04, ####[facility] LABCLIA [id number] [place] [address] [place] Calcium [Mass/Vol] 7.2 mg/dL Low 8.5-10.2 [facility] Comment on above: Order Comment: Speci men Type: BLOOD SPECIMENOrdering Facility: [facility] Address: [address] [place] [address] Performed By: #### 2 777-1, 3083-10, ####[facility] LABIA [id number] [place] [address] [place] Chloride [Moles/Vol] 112 mmol/L High 98-107 [facility] Comment on above: Order Comment: Speci men Type: BLOOD SPECIMENOrdering Facility: [facility] Address: [address] [place] [address] Performed By: #### 2 777-1, 30801-04, ####[facility] LABIA [id number] [place] [address] [place] CO2 [Moles/Vol] 21 mmol/L Low 22-30 [facility] Comment on above: Order Comment: Speci men Type: BLOOD SPECIMENOrdering Facility: [facility] Address: [address] [place] [address] Performed By: #### 2 777-1, 30801-04, ####[facility] LABCLIA [id number] [address] [address] [place] Creatinine [Mass/Vol] 0.34 mg/dL Low 0.58-0.96 [facility] Comment on above: Order Comment: Jeremie gomez Type: BLOOD SPECIMENOrdering Facility: [facility] Address: [address] [place] [address] Performed By: #### 2 777-1, 3083-10, ####[facility] LABIA [id number] [place] [address] [place] Creatinine and Glomerular filtration rate.predicted panel (S/P/Bld) 134 mL/min/1.73m??? Normal >=60 [facility] Comment on above: Order Comment: Jeremie gomez Type: BLOOD SPECIMENOrdering Facility: [facility] Address: [address] [place] [address] Result Comment: Adina mated Glomerular Filtration Rate (eGFR) is calculated using the 2020 CKD-EPI creatinine equation. This equation utilizes serum creatinine, sex, and age as parameters. The creatinine assay has traceable calibration to isotope dilution-mass spectrometry. Refer to KDIGO guidelines for clinical interpretation. In patients with unstable renal function, e.g. those with acute kidney injury, the eGFR may not accurately reflect actual GFR. Performed By: #### 2 777-1, 3083-10, ####[facility] LABIA [id number] [place] [address] [place] Glucose [Mass/Vol] 80 mg/dL Normal 74-99 [facility] Comment on above: Order Comment: Jeremie gomez Type: BLOOD SPECIMENOrdering Facility: [facility] Address: [address] [place] [address] Result Comment: The [place] [employer] (ADA) provides guidance for cutoff values for fasting glucose and random glucose. The ADA defines fasting as no caloric intake for at least 8 hours. Fasting plasma glucose results between 100 to 125 mg/dL indicate increased risk for diabetes (prediabetes).Fasting plasma glucose results greater than or equal to 126 mg/dL meet the criteria for diagnosis of diabetes. In the absence of unequivocal hyperglycemia, results should be confirmed by repeat testing. In a patient with classic symptoms of hyperglycemia or hyperglycemic crisis, random plasma glucose results greater than or equal to 200 mg/dL meet the criteria for diagnosis of diabetes.Reference: Standards of Medical Care in Diabetes 2016, [place] [employer]. Diabetes Care. 2016.39(Suppl 1). Performed By: #### 2 777-1, 3083-10, ####[facility] LABCLIA [id number] [address] [address] [place] Potassium [Moles/Vol] 3.6 mmol/L Low 3.7-5.1 [facility] Comment on above: Order Comment: Speci men Type: BLOOD SPECIMENOrdering Facility: [facility] Address: [address] [place] [address] Performed By: #### 2 777-1, 3083-10, ####[facility] LABIA [id number] [place] [address] [place] Protein [Mass/Vol] 5.0 g/dL Low 6.3-8.0 [facility] Comment on above: Order Comment: Speci men Type: BLOOD SPECIMENOrdering Facility: [facility] Address: [address] [place] [address] Performed By: #### 2 777-1, 3083-10, ####[facility] LABCLIA [id number] [place] [address] [place] Sodium [Moles/Vol] 142 mmol/L Normal 136-144 [facility] Comment on above: Order Comment: Speci men Type: BLOOD SPECIMENOrdering Facility: [facility] Address: [address] [place] [address] Performed By: #### 2 777-1, 3083-10, ####[facility] LABCLIA [id number] [place] [address] [place] Urea nitrogen [Mass/Vol] 9 mg/dL Normal 7-21 [facility] Comment on above: Order Comment: Speci men Type: BLOOD SPECIMENOrdering Facility: [facility] Address: [address] [place] [address] Performed By: #### 2 777-1, 3084-1, 13846-5 ####[facility] LABCLIA [id number] [place] [address] [place] Albumin [Mass/Vol] 3.1 g/dL Low 3.9-4.9 [facility] Comment on above: Order Comment: Speci men Type: BLOOD SPECIMENOrdering Facility: [facility] Address: [address] [place] [address] Performed By: #### 1 9123-9, 2777-1, 308-1, 19949-6 ####[facility] LABCLIA [id number] [place] [address] [place] ALP [Catalytic activity/Vol] 124 U/L High 34-123 [facility] Comment on above: Order Comment: Speci men Type: BLOOD SPECIMENOrdering Facility: [facility] Address: [address] [place] [address] Performed By: #### 1 9123-9, 2777-1, 308-1, 64523-4 ####[facility] LABCLIA [id number] [place] [address] [place] ALT [Catalytic activity/Vol] 29 U/L Normal 7-38 [facility] Comment on above: Order Comment: Speci men Type: BLOOD SPECIMENOrdering Facility: [facility] Address: [address] [place] [address] Performed By: #### 1 9123-9, 2777-1, 3084-1, 82194-5 ####[facility] LABCLIA [id number] [place] [address] [place] Anion gap [Moles/Vol] 8 mmol/L Normal 8-15 [facility] Comment on above: Order Comment: Speci men Type: BLOOD SPECIMENOrdering Facility: [facility] Address: [address] [place] [address] Performed By: #### 1 9123-9, 2777-1, 3084-1, 70818-0 ####[facility] LABCLIA [id number] [place] [address] [place] AST [Catalytic activity/Vol] 18 U/L Normal 13-35 [facility] Comment on above: Order Comment: Speci men Type: BLOOD SPECIMENOrdering Facility: [facility] Address: [address] [place] [address] Performed By: #### 1 9123-9, 2777-1, 3084-1, 13768-7 ####[facility] LABCLIA [id number] [place] [address] [place] Bilirubin [Mass/Vol] 0.9 mg/dL Normal 0.2-1.3 [facility] Comment on above: Order Comment: Speci men Type: BLOOD SPECIMENOrdering Facility: [facility] Address: [address] [place] [address] Performed By: #### 1 9123-9, 2777-1, 3084-1, 70460-6 ####[facility] LABCLIA [id number] [place] [address] [place] Calcium [Mass/Vol] 8.4 mg/dL Low 8.5-10.2 [facility] Comment on above: Order Comment: Speci men Type: BLOOD SPECIMENOrdering Facility: [facility] Address: [address] [place] [address] Performed By: #### 1 9123-9, 2777-1, 3084-1, 76864-5 ####[facility] LABCLIA [id number] [place] [address] [place] Chloride [Moles/Vol] 105 mmol/L Normal 98-107 [facility] Comment on above: Order Comment: Speci men Type: BLOOD SPECIMENOrdering Facility: [facility] Address: [address] [place] [address] Performed By: #### 1 9123-9, 2777-1, 3084-1, 00933-0 ####[facility] LABCLIA [id number] [place] [address] [place] CO2 [Moles/Vol] 24 mmol/L Normal 22-30 [facility] Comment on above: Order Comment: Speci men Type: BLOOD SPECIMENOrdering Facility: [facility] Address: [address] [place] [address] Performed By: #### 1 9123-9, 2777-1, 3084-1, 90159-5 ####[facility] LABIA [id number] [place] [address] [place] Creatinine [Mass/Vol] 0.43 mg/dL Low 0.58-0.96 [facility] Comment on above: Order Comment: Speci men Type: BLOOD SPECIMENOrdering Facility: [facility] Address: [address] [place] [address] Performed By: #### 1 9123-9, 2777-1, 3084-1, 10619-5 ####[facility] LABIA [id number] [place] [address] [place] Creatinine and Glomerular filtration rate.predicted panel (S/P/Bld) 127 mL/min/1.73m??? Normal >=60 [facility] Comment on above: Order Comment: Speci men Type: BLOOD SPECIMENOrdering Facility: [facility] Address: [address] [place] [address] Result Comment: Adina mated Glomerular Filtration Rate (eGFR) is calculated using the 2020 CKD-EPI creatinine equation. This equation utilizes serum creatinine, sex, and age as parameters. The creatinine assay has traceable calibration to isotope dilution-mass spectrometry. Refer to KDIGO guidelines for clinical interpretation. In patients with unstable renal function, e.g. those with acute kidney injury, the eGFR may not accurately reflect actual GFR. Performed By: #### 1 9123-9, 2776-, 3083-10, ####[facility] LABCLIA [id number] [address] [address] [place] Glucose [Mass/Vol] 133 mg/dL High 74-99 [facility] Comment on above: Order Comment: Jeremie gomez Type: BLOOD SPECIMENOrdering Facility: [facility] Address: [address] [place] [address] Result Comment: The [place] Diabetes Association (ADA) provides guidance for cutoff values for fasting glucose and random glucose. The ADA defines fasting as no caloric intake for at least 8 hours. Fasting plasma glucose results between 100 to 125 mg/dL indicate increased risk for diabetes (prediabetes).Fasting plasma glucose results greater than or equal to 126 mg/dL meet the criteria for diagnosis of diabetes. In the absence of unequivocal hyperglycemia, results should be confirmed by repeat testing. In a patient with classic symptoms of hyperglycemia or hyperglycemic crisis, random plasma glucose results greater than or equal to 200 mg/dL meet the criteria for diagnosis of diabetes.Reference: Standards of Medical Care in Diabetes 2016, [place] [employer] Association. Diabetes Care. 2016.39(Suppl 1). Performed By: #### 1 9123-9, 2776-10, 3083-10, ####[facility] LABCLIA [id number] [facility] [address] [address] [place] Potassium [Moles/Vol] 4.0 mmol/L Normal 3.7-5.1 [facility] Comment on above: Order Comment: Jeremie gomez Type: BLOOD SPECIMENOrdering Facility: [facility] Address: [address] [place] [address] Performed By: #### 1 9123-9, 277-, 3083-, ####[facility] LABCLIA [id number] [facility] [id number] [place] [address] [place] Protein [Mass/Vol] 5.8 g/dL Low 6.3-8.0 [facility] Comment on above: Order Comment: Speci men Type: BLOOD SPECIMENOrdering Facility: [facility] Address: [address] [place] [address] Performed By: #### 1 9123-9, 2777-1, 3084-1, 01148-2 ####[facility] LABCLIA [id number] [place] [address] [place] Sodium [Moles/Vol] 137 mmol/L Normal 136-144 [facility] Comment on above: Order Comment: Speci men Type: BLOOD SPECIMENOrdering Facility: [facility] Address: [address] [place] [address] Performed By: #### 1 9123-9, 2777-1, 3084-1, 72651-4 ####[facility] LABCLIA [id number] [place] [address] [place] Urea nitrogen [Mass/Vol] 11 mg/dL Normal 7-21 [facility] Comment on above: Order Comment: Speci men Type: BLOOD SPECIMENOrdering Facility: [facility] Address: [address] [place] [address] Performed By: #### 1 9123-9, 2777-1, 3084-1, 08458-2 ####[facility] LABCLIA [id number] [place] [address] [place] FLOW CYTOMETRY FOR LEUKEMIA/ LYMPHOMA (FCLL) PERFORMABLEon 10-07-2024 FLOW CYTOMETRY ORDER STATUS Results will be reported under F case ID when completed Normal [facility] Comment on above: Order Comment: Speci men Type: CEREBROSPINAL FLUID SPECIMENOrdering Facility: [facility] Address: [address] [place] [address] Performed By: #### F CLLP, [id number], CCCSFR, 40064-7, 2342-4, 2880-3 ####[facility] LABCLIA [id number] [place] [address] [place] FLOW CYTOMETRY FOR LEUKEMIA/ LYMPHOMA (FCLL) REFLEXon 10-07-2024 DIAGNOSIS COMMENT Normal [facility] Comment on above: Order Comment: Speci men Type: CEREBROSPINAL FLUID SPECIMENOrdering Facility: [facility] Address: [address] [place] [address] Result Comment: This test was developed and its performance characteristics determined by [facility]'s Davy JRajat [facility] Pathology and Laboratory Medicine [place] (RTPLMI). It has not been cleared or approved by the FDA. -[facility] is regulated under CLIA as qualified to perform high-complexity testing. This test is used for clinical purposes. It should not be regarded as investigational or for research. Performed By: #### F CLLRFLX ####[facility] LABCLIA [id number] [address] STATES OF [facility] FINAL PERFORMING LAB Normal [facility] Comment on above: Order Comment: Speci men Type: CEREBROSPINAL FLUID SPECIMENOrdering Facility: [facility] Address: [address] [place] [address] Result Comment: Diag nostic interpretation performed at [facility], [address] [place] [address]# [id number] Director: Diego Bourgeois M.D. Performed By: #### F CLLRFLX ####[facility] LABCLIA [id number] [address] STATES OF [facility] FLOW CYTOMETRY RESULTS Normal [facility] Comment on above: Order Comment: Speci men Type: CEREBROSPINAL FLUID SPECIMENOrdering Facility: [facility] Address: [address] [place] [address] Result Comment: Spec imen type: Cerebrospinal fluidTotal nucleated cell count: 0 /uLRed blood cell count: 2 /uLDifferential (CSF, Diff of 28 cells): N/AMorphology comments: Small lymphocytes intermixed with few monocytes presentViability: n/aLymphocyte gate: 0% of total eventsA limited flow cytometric analysis was performed on the cerebrospinal fluid due to low cell yield. Antibodies to CD2, CD3, CD4, CD5, CD7, CD8, CD16/56, CD13, CD45 and TCR Cb1 were used. This shows that <1% of total events have the CD45 and side scatter properties of lymphocytes. There are too few lymphocytes to accurately analyze.JAXSON/CONI 10/08/2024 Performed By: #### F CLLRFLX ####[facility] LABCLIA [id number] [place] [address] [place] GROSS DESCRIPTION Normal [facility] Comment on above: Order Comment: Speci men Type: CEREBROSPINAL FLUID SPECIMENOrdering Facility: [facility] Address: [address] [place] [address] Result Comment: Irwin MCCLELLAN, Lumbar PunctureRECEIVED 2 MLS CSF IN TUBE Performed By: #### F CLLRFLX ####[facility] [id number] [place] [address] [place] INTERPRETATION Normal [facility] Comment on above: Order Comment: Speci men Type: CEREBROSPINAL FLUID SPECIMENOrdering Facility: [facility] Address: [address] [place] [address] Result Comment: Ther e are too few lymphocytes to accurate analyze the immunophenotypic evidence of involvement by a lymphoproliferative disorder or lymphoblastic leukemia/lymphoma in this limited sample. Correlation with the clinical findings is suggested. Performed By: #### F CLLRFLX ####[facility] LABIA [id number] [place] [address] [place] Fibrinogen PPP-mCncon 2024 Fibrinogen Coag (PPP) [Mass/Vol] mg/dL High 200-400 [facility] Comment on above: Order Comment: Speci men Type: BLOOD SPECIMENOrdering Facility: [facility] Address: [address] [place] [address] Result Comment: Lidia mckeon checked for clot.Result rechecked. Performed By: #### 3 255-7, 62866-3 ####[facility] LABIA [id number] [place] [address] [place] Glucose CSF-mCncon Glucose (CSF) [Mass/Vol] 75 mg/dL High 40-70 [facility] Comment on above: Order Comment: Speci men Type: CEREBROSPINAL FLUID SPECIMENOrdering Facility: [facility] Address: [address] [place] [address] Result Comment: Lumb ar CSF glucose values of healthy patients are approximately 60% of the plasma values and must always be compared with a concurrently measured plasma value for adequate clinical interpretation.References: 1. Glucose HK (GLUC3) [package insert V 12.0 Citizen [place]]. [employer], [place], [place]. February 2016. 2. Carmine Mcfarland, Carmine Christine (2015). Chapter 7: Glucose and Lactate. FRajat Hernandez al.(eds.), Cerebrospinal Fluid in Clinical Neurology. [place]: [employer]. Performed By: #### F CLLP, [id number], CCCSFR, 90350-5, 2342-4, 2880-3 ####[facility] LABCLIA [id number] [place] [address] [place] IR LP FOR CHEMO OR BACLAFINE on 10-07-2024 IR LP FOR CHEMO OR BACLAFINE Normal [facility] Magnesium SerPl-ncon 10-07 Magnesium [Mass/Vol] 2.1 mg/dL Normal 1.7-2.3 [facility] Comment on above: Order Comment: Speci men Type: BLOOD SPECIMENOrdering Facility: [facility] Address: [address] [place] [address] Performed By: #### 1 9123-9, 2777-1, 3084-1, 68319-7 ####[facility] LABCLIA [id number] [place] [address] [place] PT panel Coag (PPP)on 2024 INR Coag (PPP) [Relative time] 1.2 {INR} Normal 0.9-1.3 [facility] Comment on above: Order Comment: Jeremie gomez Type: BLOOD SPECIMENOrdering Facility: [facility] Address: [address] [place] [address] Result Comment: Dorene min K Antagonist (VKA) Therapeutic Range: INR 2 to 3 (Target INR of 2.5)Note: For patients treated with VKA drugs, such as warfarin, the [place] [employer] 2012 Guideline recommends a therapeutic INR range of 2 to 3 (target INR of 2.5). This recommendation includes high-risk patients with antiphospholipid syndrome with previous arterial or venous thromboembolism, current-generation mechanical or bioprosthetic aortic heart valve replacement.Note: Patients with mechanical aortic valve replacement and additional risk factors for thromboembolic events (atrial fibrillation, previous thromboembolism, LV dysfunction, hypercoagulable conditions) or an older generation mechanical AVR (i.e., ball in-Cage) or any mechanical MVR should have a INR therapeutic range of 2.5 to 3.5 (target INR of 3).Dayan GH, et al. Chest 2012, 141:7S-47SNishimemeterio RA, et al. [facility] 2017, 70: 252-289 Performed By: #### 3 255-7, 44682-3 ####[facility] [id number] [place] [address] [place] PT Coag (PPP) [Time] 12.7 s Normal 9.7-13.0 [facility] Comment on above: Order Comment: Jeremie gomez Type: BLOOD SPECIMENOrdering Facility: [facility] Address: [address] [place] [address] Performed By: #### 3 255-7, 15960-1 ####[facility] [id number] [place] [address] [place] Phosphate SerPl-mCncon 10-07 Phosphate [Mass/Vol] 1.9 mg/dL Low 2.7-4.8 [facility] Comment on above: Order Comment: Jeremie gomez Type: BLOOD SPECIMENOrdering Facility: [facility] Address: [address] [place] [address] Performed By: #### 2 777-1, 3084-1, 14641-8 ####[facility] LABCLIA [id number] [place] [address] [place] Phosphate [Mass/Vol] 2.2 mg/dL Low 2.7-4.8 [facility] Comment on above: Order Comment: Speci men Type: BLOOD SPECIMENOrdering Facility: [facility] Address: [address] [place] [address] Performed By: #### 1 9123-9, 2777-1, 3084-1, 46319-8 ####[facility] LABCLIA [id number] [place] [address] [place] Prot [facility] Protein (CSF) [Mass/Vol] 16 mg/dL Normal 15-45 [facility] Comment on above: Order Comment: Speci men Type: CEREBROSPINAL FLUID SPECIMENOrdering Facility: [facility] Address: [address] [place] [address] Performed By: #### F CLLP, [id number], [facility] LUNG CENTERSFR, 38500-1, 2342-4, 2880-3 ####[facility] LABCLIA [id number] [place] [address] [place] Resp path 12b Pnl Spec JANET+p robeon 10-07-2024 Respiratory pathogens DNA and RNA 12b panel JANET+probe (Unsp spec) Normal [facility] Comment on above: Performed By: #### 6 0566-7 ####[facility] LABCLIA [id number] [place] [address] [place] THERAPY NTon 10-07-2024 THERAPY NT Normal [facility] THERAPY NT Normal [facility] Urate SerPl-mCncon Urate [Mass/Vol] 0.9 mg/dL Low 2.5-6.6 [facility] Comment on above: Order Comment: Jeremie gomez Type: BLOOD SPECIMENOrdering Facility: [facility] Address: [address] [place] [address] Performed By: #### 2 777-1, 3084-1, 48498-3 ####[facility] LABCLIA [id number] [place] [address] [place] Urate [Mass/Vol] 1.1 mg/dL Low 2.5-6.6 [facility] Comment on above: Order Comment: Jeremie gomez Type: BLOOD SPECIMENOrdering Facility: [facility] Address: [address] [place] [address] Performed By: #### 1 9123-9, 2777-1, 3084-1, 03956-5 ####[facility] LABCLIA [id number] [place] [address] [place] ASPERGILLUS GALACTOMANNAN SE RUMon 10-06-2024 ASPERGILLUS GALACTOMANNAN 0.04 Index Value Normal <=0.49 [facility] Comment on above: Order Comment: Jeremie gomez Type: BLOOD SPECIMENOrdering Facility: [facility] Address: [address] [place] [address] Performed By: #### A SGALS ####[facility] LABIA [id number] [place] [address] [place] Galactomannan Ag IA Ql Negative Normal Negative [facility] Comment on above: Order Comment: Jeremie gomez Type: BLOOD SPECIMENOrdering Facility: [facility] Address: [address] [place] [address] Result Comment: Aspe rgillus Galactomannan antigen assay is used as an aid in diagnosis of invasive aspergillosis in immunocompromised individuals especially in post-stem cell transplant, hematological malignancies on chemotherapy, and HIV-positive patients with very low CD4 T-cell counts. The test may also be used in disease prognostication and for monitoring response to anti-fungal therapy. False positive and false negative results are not uncommon. Clinical and radiological correlation is required. Performed By: #### A SGALS ####[facility] LABCLIA [id number] [place] [address] [place] Bacteria Bld Culton 10-06-19 25 Bacteria identified Cx Nom (Bld) CULTURE, BLOOD: No growth 5 days Normal [facility] Comment on above: Performed By: #### 6 00-7 ####[facility] LABCLIA [id number] [place] [address] [place] CBC W Auto Differential pane l (Bld)on 10-06-2024 Basophils (Bld) [#/Vol] 0.09 10*3/uL Normal <0.11 [facility] Comment on above: Order Comment: Speci men Type: BLOOD SPECIMENOrdering Facility: [facility] Address: [address] [place] [address] Performed By: #### 5 7021-8 ####[facility] LABCLIA [id number] [place] [address] [place] Basophils/100 WBC (Bld) 1.0 % Normal [facility] Comment on above: Order Comment: Speci men Type: BLOOD SPECIMENOrdering Facility: [facility] Address: [address] [place] [address] Performed By: #### 5 7021-8 ####[facility] LABCLIA [id number] [place] [address] [place] Differential cell count method Nom (Bld) Auto Normal [facility] Comment on above: Order Comment: Speci men Type: BLOOD SPECIMENOrdering Facility: [facility] Address: [address] [place] [address] Performed By: #### 5 7021-8 ####[facility] LABCLIA [id number] [place] [address] [place] Eosinophils (Bld) [#/Vol] 0.04 10*3/uL Normal <0.46 [facility] Comment on above: Order Comment: Speci men Type: BLOOD SPECIMENOrdering Facility: [facility] Address: [address] [place] [address] Performed By: #### 5 7021-8 ####[facility] LABCLIA [id number] [place] [address] [place] Eosinophils/100 WBC (Bld) 0.4 % Normal [facility] Comment on above: Order Comment: Speci men Type: BLOOD SPECIMENOrdering Facility: [facility] Address: [address] [place] [address] Performed By: #### 5 7021-8 ####[facility] LABCLIA [id number] [place] [address] [place] Erythrocyte distribution width (RBC) [Ratio] 19.9 % High 11.5-15.0 [facility] Comment on above: Order Comment: Speci men Type: BLOOD SPECIMENOrdering Facility: [facility] Address: [address] [place] [address] Performed By: #### 5 7021-8 ####[facility] LABCLIA [id number] [place] [address] [place] Hematocrit (Bld) [Volume fraction] 32.5 % Low 36.0-46.0 [facility] Comment on above: Order Comment: Speci men Type: BLOOD SPECIMENOrdering Facility: [facility] Address: [address] [place] [address] Performed By: #### 5 7021-8 ####[facility] LABCLIA [id number] [place] [address] [place] Hemoglobin (Bld) [Mass/Vol] 9.5 g/dL Low 11.5-15.5 [facility] Comment on above: Order Comment: Speci men Type: BLOOD SPECIMENOrdering Facility: [facility] Address: [address] [place] [address] Performed By: #### 5 7021-8 ####[facility] LABCLIA [id number] [place] [address] [place] Immature granulocytes (Bld) [#/Vol] 0.32 10*3/uL High <0.10 [facility] Comment on above: Order Comment: Speci men Type: BLOOD SPECIMENOrdering Facility: [facility] Address: [address] [place] [address] Performed By: #### 5 7021-8 ####[facility] LABCLIA [id number] [place] [address] [place] Immature granulocytes/100 WBC (Bld) 3.4 % Normal [facility] Comment on above: Order Comment: Speci men Type: BLOOD SPECIMENOrdering Facility: [facility] Address: [address] [place] [address] Performed By: #### 5 7021-8 ####[facility] LABCLIA [id number] [place] [address] [place] Lymphocytes (Bld) [#/Vol] 0.44 10*3/uL Low 1.00-4.00 [facility] Comment on above: Order Comment: Speci men Type: BLOOD SPECIMENOrdering Facility: [facility] Address: [address] [place] [address] Performed By: #### 5 7021-8 ####[facility] LABCLIA [id number] [place] [address] [place] Lymphocytes/100 WBC (Bld) 4.7 % Normal [facility] Comment on above: Order Comment: Speci men Type: BLOOD SPECIMENOrdering Facility: [facility] Address: [address] [place] [address] Performed By: #### 5 7021-8 ####[facility] LABCLIA [id number] [place] [address] [place] MCH (RBC) [Entitic mass] 23.1 pg Low 26.0-34.0 [facility] Comment on above: Order Comment: Speci men Type: BLOOD SPECIMENOrdering Facility: [facility] Address: [address] [place] [address] Performed By: #### 5 7021-8 ####[facility] LABIA [id number] [place] [address] [place] MCHC (RBC) [Mass/Vol] 29.2 g/dL Low 30.5-36.0 [facility] Comment on above: Order Comment: Speci men Type: BLOOD SPECIMENOrdering Facility: [facility] Address: [address] [place] [address] Performed By: #### 5 7021-8 ####[facility] [id number] [place] [address] [place] MCV (RBC) [Entitic vol] 78.9 fL Low 80.0-100.0 [facility] Comment on above: Order Comment: Speci men Type: BLOOD SPECIMENOrdering Facility: [facility] Address: [address] [place] [address] Performed By: #### 5 7021-8 ####[facility] LABIA [id number] [place] [address] [place] Monocytes (Bld) [#/Vol] 0.71 10*3/uL Normal <0.87 [facility] Comment on above: Order Comment: Speci men Type: BLOOD SPECIMENOrdering Facility: [facility] Address: [address] [place] [address] Performed By: #### 5 7021-8 ####[facility] LABIA [id number] [place] [address] [place] Monocytes/100 WBC (Bld) 7.6 % Normal [facility] Comment on above: Order Comment: Speci men Type: BLOOD SPECIMENOrdering Facility: [facility] Address: [address] [place] [address] Performed By: #### 5 7021-8 ####[facility] LABCLIA [id number] [place] [address] [place] Neutrophils (Bld) [#/Vol] 7.71 10*3/uL High 1.45-7.50 [facility] Comment on above: Order Comment: Speci men Type: BLOOD SPECIMENOrdering Facility: [facility] Address: [address] [place] [address] Performed By: #### 5 7021-8 ####[facility] LABCLIA [id number] [place] [address] [place] Neutrophils/100 WBC (Bld) 82.9 % Normal [facility] Comment on above: Order Comment: Speci men Type: BLOOD SPECIMENOrdering Facility: [facility] Address: [address] [place] [address] Performed By: #### 5 7021-8 ####[facility] LABCLIA [id number] [place] [address] [place] Nucleated RBC (Bld) [#/Vol] 10*3/uL Normal <0.01 [facility] Comment on above: Order Comment: Speci men Type: BLOOD SPECIMENOrdering Facility: [facility] Address: [address] [place] [address] Performed By: #### 5 7021-8 ####[facility] LABCLIA [id number] [place] [address] [place] Nucleated RBC/100 WBC (Bld) [Ratio] 0.0 /100 WBC Normal [facility] Comment on above: Order Comment: Speci men Type: BLOOD SPECIMENOrdering Facility: [facility] Address: [address] [place] [address] Performed By: #### 5 7021-8 ####[facility] LABCLIA [id number] [place] [address] [place] Platelet mean volume (Bld) [Entitic vol] 11.0 fL Normal 9.0-12.7 [facility] Comment on above: Order Comment: Speci men Type: BLOOD SPECIMENOrdering Facility: [facility] Address: [address] [place] [address] Performed By: #### 5 7021-8 ####[facility] LABCLIA [id number] [place] [address] [place] Platelets (Bld) [#/Vol] 213 10*3/uL Normal 150-400 [facility] Comment on above: Order Comment: Speci men Type: BLOOD SPECIMENOrdering Facility: [facility] Address: [address] [place] [address] Performed By: #### 5 7021-8 ####[facility] LABCLIA [id number] [place] [address] [place] RBC (Bld) [#/Vol] 4.12 10*6/uL Normal 3.90-5.20 [facility] Comment on above: Order Comment: Speci men Type: BLOOD SPECIMENOrdering Facility: [facility] Address: [address] [place] [address] Performed By: #### 5 7021-8 ####[facility] LABCLIA [id number] [place] [address] [place] WBC (Bld) [#/Vol] 9.31 10*3/uL Normal 3.70-11.00 [facility] Comment on above: Order Comment: Speci men Type: BLOOD SPECIMENOrdering Facility: [facility] Address: [address] [place] [address] Performed By: #### 5 7021-8 ####[facility] LABCLIA [id number] [place] [address] [place] [facility] BACTERIA UR CULTon 10-06 [facility] BACTERIA UR CULT CULTURE, URINE: No growth (<1,000 CFU/ml) [facility] Original Ordering Provider: ALICE ROBERTO [facility] CRYPTOC AG SPEC QL LAon 10-06-2024 [facility] CRYPTOC AG SPEC QL LA CRYPTOCOCCUS ANTIGEN : Cryptococcal Antigen NOT DETECTED [facility] CRYPTOC AG SPEC QL LA by Lateral flow immunoassay. [facility] Original Ordering Provider: NEEL TALBERT [facility] CONSULTon 10-06-2024 CONSULT Normal [facility] Comprehensive metabolic 2000 panelon 10-06-2024 Albumin [Mass/Vol] 2.6 g/dL Low 3.9-4.9 [facility] Comment on above: Order Comment: Speci men Type: BLOOD SPECIMENOrdering Facility: [facility] Address: [address] [place] [address] Performed By: #### 2 4323-8 ####[facility] LABCLIA [id number] [place] [address] [place] ALP [Catalytic activity/Vol] 106 U/L Normal 34-123 [facility] Comment on above: Order Comment: Speci men Type: BLOOD SPECIMENOrdering Facility: [facility] Address: [address] [place] [address] Performed By: #### 2 4323-8 ####[facility] LABCLIA [id number] [place] [address] [place] ALT [Catalytic activity/Vol] 27 U/L Normal 7-38 [facility] Comment on above: Order Comment: Speci men Type: BLOOD SPECIMENOrdering Facility: [facility] Address: [address] [place] [address] Performed By: #### 2 4323-8 ####[facility] LABCLIA [id number] [place] [address] [place] Anion gap [Moles/Vol] 8 mmol/L Normal 8-15 [facility] Comment on above: Order Comment: Speci men Type: BLOOD SPECIMENOrdering Facility: [facility] Address: [address] [place] [address] Performed By: #### 2 4323-8 ####[facility] LABCLIA [id number] [place] [address] [place] AST [Catalytic activity/Vol] 16 U/L Normal 13-35 [facility] Comment on above: Order Comment: Speci men Type: BLOOD SPECIMENOrdering Facility: [facility] Address: [address] [place] [address] Performed By: #### 2 4323-8 ####[facility] LABCLIA [id number] [place] [address] [place] Bilirubin [Mass/Vol] 1.2 mg/dL Normal 0.2-1.3 [facility] Comment on above: Order Comment: Speci men Type: BLOOD SPECIMENOrdering Facility: [facility] Address: [address] [place] [address] Performed By: #### 2 4323-8 ####[facility] LABCLIA [id number] [place] [address] [place] Calcium [Mass/Vol] 7.2 mg/dL Low 8.5-10.2 [facility] Comment on above: Order Comment: Speci men Type: BLOOD SPECIMENOrdering Facility: [facility] Address: [address] [place] [address] Performed By: #### 2 4323-8 ####[facility] LABCLIA [id number] [place] [address] [place] Chloride [Moles/Vol] 109 mmol/L High 98-107 [facility] Comment on above: Order Comment: Speci men Type: BLOOD SPECIMENOrdering Facility: [facility] Address: [address] [place] [address] Performed By: #### 2 4323-8 ####[facility] LABCLIA [id number] [place] [address] [place] CO2 [Moles/Vol] 21 mmol/L Low 22-30 [facility] Comment on above: Order Comment: Speci men Type: BLOOD SPECIMENOrdering Facility: [facility] Address: [address] [place] [address] Performed By: #### 2 4323-8 ####[facility] LABIA [id number] [place] [address] [place] Creatinine [Mass/Vol] 0.39 mg/dL Low 0.58-0.96 [facility] Comment on above: Order Comment: Speci men Type: BLOOD SPECIMENOrdering Facility: [facility] Address: [address] [place] [address] Performed By: #### 2 4323-8 ####[facility] LABIA [id number] [place] [address] [place] Creatinine and Glomerular filtration rate.predicted panel (S/P/Bld) 130 mL/min/1.73m??? Normal >=60 [facility] Comment on above: Order Comment: Speci men Type: BLOOD SPECIMENOrdering Facility: [facility] Address: [address] [place] [address] Result Comment: Adina mated Glomerular Filtration Rate (eGFR) is calculated using the 2020 CKD-EPI creatinine equation. This equation utilizes serum creatinine, sex, and age as parameters. The creatinine assay has traceable calibration to isotope dilution-mass spectrometry. Refer to KDIGO guidelines for clinical interpretation. In patients with unstable renal function, e.g. those with acute kidney injury, the eGFR may not accurately reflect actual GFR. Performed By: #### 2 4323-8 ####[facility] LABIA [id number] [place] [address] [place] Glucose [Mass/Vol] 111 mg/dL High 74-99 [facility] Comment on above: Order Comment: Speci men Type: BLOOD SPECIMENOrdering Facility: [facility] Address: [address] [place] [address] Result Comment: The [place] [employer] (ADA) provides guidance for cutoff values for fasting glucose and random glucose. The ADA defines fasting as no caloric intake for at least 8 hours. Fasting plasma glucose results between 100 to 125 mg/dL indicate increased risk for diabetes (prediabetes).Fasting plasma glucose results greater than or equal to 126 mg/dL meet the criteria for diagnosis of diabetes. In the absence of unequivocal hyperglycemia, results should be confirmed by repeat testing. In a patient with classic symptoms of hyperglycemia or hyperglycemic crisis, random plasma glucose results greater than or equal to 200 mg/dL meet the criteria for diagnosis of diabetes.Reference: Standards of Medical Care in Diabetes 2016, [place] [employer]. Diabetes Care. 2016.39(Suppl 1). Performed By: #### 2 4323-8 ####[facility] LABCLIA [id number] [place] [address] [place] Potassium [Moles/Vol] 3.5 mmol/L Low 3.7-5.1 [facility] Comment on above: Order Comment: Jeremie gomez Type: BLOOD SPECIMENOrdering Facility: [facility] Address: [address] [place] [address] Performed By: #### 2 4323-8 ####[facility] LABIA [id number] [place] [address] [place] Protein [Mass/Vol] 4.9 g/dL Low 6.3-8.0 [facility] Comment on above: Order Comment: Jeremie gomez Type: BLOOD SPECIMENOrdering Facility: [facility] Address: [address] [place] [address] Performed By: #### 2 4323-8 ####[facility] LABCLIA [id number] [place] [address] [place] Sodium [Moles/Vol] 138 mmol/L Normal 136-144 [facility] Comment on above: Order Comment: Pingi men Type: BLOOD SPECIMENOrdering Facility: [facility] Address: [address] [place] [address] Performed By: #### 2 4323-8 ####[facility] LABCLIA [id number] [place] [address] [place] Urea nitrogen [Mass/Vol] 10 mg/dL Normal 7-21 [facility] Comment on above: Order Comment: Speci men Type: BLOOD SPECIMENOrdering Facility: [facility] Address: [address] [place] [address] Performed By: #### 2 4323-8 ####[facility] LABCLIA [id number] [place] [address] [place] Albumin [Mass/Vol] 3.1 g/dL Low 3.9-4.9 [facility] Comment on above: Order Comment: Speci men Type: BLOOD SPECIMENOrdering Facility: [facility] Address: [address] [place] [address] Performed By: #### 2 4323-8, 97846-4, 2777-1, 3084-1 ####[facility] LABIA [id number] [place] [address] [place] ALP [Catalytic activity/Vol] 133 U/L High 34-123 [facility] Comment on above: Order Comment: Speci men Type: BLOOD SPECIMENOrdering Facility: [facility] Address: [address] [place] [address] Performed By: #### 2 4323-8, 80145-8, 2777-1, 3084-1 ####[facility] LABIA [id number] [place] [address] [place] ALT [Catalytic activity/Vol] 36 U/L Normal 7-38 [facility] Comment on above: Order Comment: Speci men Type: BLOOD SPECIMENOrdering Facility: [facility] Address: [address] [place] [address] Performed By: #### 2 4323-8, 45487-7, 2776-1, 3084-1 ####[facility] LABIA [id number] [place] [address] [place] Anion gap [Moles/Vol] 10 mmol/L Normal 8-15 [facility] Comment on above: Order Comment: Speci men Type: BLOOD SPECIMENOrdering Facility: [facility] Address: [address] [place] [address] Performed By: #### 2 4323-8, 68297-0, 2776-10, 3083- ####[facility] LABCLIA [id number] [place] [address] [place] AST [Catalytic activity/Vol] 25 U/L Normal 13-35 [facility] Comment on above: Order Comment: Speci men Type: BLOOD SPECIMENOrdering Facility: [facility] Address: [address] [place] [address] Performed By: #### 2 4323-8, 21693-0, 2776-10, 3083- ####[facility] LABCLIA [id number] [place] [address] [place] Bilirubin [Mass/Vol] 1.7 mg/dL High 0.2-1.3 [facility] Comment on above: Order Comment: Speci men Type: BLOOD SPECIMENOrdering Facility: [facility] Address: [address] [place] [address] Performed By: #### 2 4323-8, 95635-4, 2776-10, 308- ####[facility] LABCLIA [id number] [place] [address] [place] Calcium [Mass/Vol] 8.2 mg/dL Low 8.5-10.2 [facility] Comment on above: Order Comment: Speci men Type: BLOOD SPECIMENOrdering Facility: [facility] Address: [address] [place], [place] [address] Performed By: #### 2 4323-8, 51289-6, 2776-10, 308-1 ####[facility] LABCLIA [id number] [place] [address] [place] Chloride [Moles/Vol] 103 mmol/L Normal 98-107 [facility] Comment on above: Order Comment: Speci men Type: BLOOD SPECIMENOrdering Facility: [facility] Address: [address] [place], [place] [address] Performed By: #### 2 4323-8, 47763-5, 2776-, 3084-1 ####[facility] LABCLIA [id number] [address] [address] [place] CO2 [Moles/Vol] 25 mmol/L Normal 22-30 [facility] Comment on above: Order Comment: Speci men Type: BLOOD SPECIMENOrdering Facility: [facility] Address: [address] [place], [place] [address] Performed By: #### 2 4323-8, 11961-7, 2776-, 3084-1 ####[facility] LABIA [id number] [address] [address] [place] Creatinine [Mass/Vol] 0.67 mg/dL Normal 0.58-0.96 [facility] Comment on above: Order Comment: Speci men Type: BLOOD SPECIMENOrdering Facility: [facility] Address: [address] [place] [address] Performed By: #### 2 4323-8, 54238-3, 2776-10, 308-1 ####[facility] LABIA [id number] [address] [address] [place] Creatinine and Glomerular filtration rate.predicted panel (S/P/Bld) 114 mL/min/1.73m??? Normal >=60 [facility] Comment on above: Order Comment: Speci men Type: BLOOD SPECIMENOrdering Facility: [facility] Address: [address] [place] [address] Result Comment: Adina mated Glomerular Filtration Rate (eGFR) is calculated using the 2020 CKD-EPI creatinine equation. This equation utilizes serum creatinine, sex, and age as parameters. The creatinine assay has traceable calibration to isotope dilution-mass spectrometry. Refer to KDIGO guidelines for clinical interpretation. In patients with unstable renal function, e.g. those with acute kidney injury, the eGFR may not accurately reflect actual GFR. Performed By: #### 2 4323-8, 61800-8, 2776-10, 3083-10 ####[facility] LABCLIA [id number] [address] [address] [place] Glucose [Mass/Vol] 135 mg/dL High 74-99 [facility] Comment on above: Order Comment: Jeremie gomez Type: BLOOD SPECIMENOrdering Facility: [facility] Address: [address] [place] [address] Result Comment: The [place] [employer] (ADA) provides guidance for cutoff values for fasting glucose and random glucose. The ADA defines fasting as no caloric intake for at least 8 hours. Fasting plasma glucose results between 100 to 125 mg/dL indicate increased risk for diabetes (prediabetes).Fasting plasma glucose results greater than or equal to 126 mg/dL meet the criteria for diagnosis of diabetes. In the absence of unequivocal hyperglycemia, results should be confirmed by repeat testing. In a patient with classic symptoms of hyperglycemia or hyperglycemic crisis, random plasma glucose results greater than or equal to 200 mg/dL meet the criteria for diagnosis of diabetes.Reference: Standards of Medical Care in Diabetes 2016, [place] [employer]. Diabetes Care. 2016.39(Suppl 1). Performed By: #### 2 4323-8, , 2776-10, 3083-10 ####[facility] LABCLIA [id number] [address] [address] [place] Potassium [Moles/Vol] 3.9 mmol/L Normal 3.7-5.1 [facility] Comment on above: Order Comment: Jeremie gomez Type: BLOOD SPECIMENOrdering Facility: [facility] Address: [address] [place] [address] Performed By: #### 2 4323-8, , 2776-10, 3083- ####[facility] LABCLIA [id number] [address] [address] [place] Protein [Mass/Vol] 5.8 g/dL Low 6.3-8.0 [facility] Comment on above: Order Comment: Speci men Type: BLOOD SPECIMENOrdering Facility: [facility] Address: [address] [place] [address] Performed By: #### 2 4323-8, 58108-3, 2777-1, 3084-1 ####[facility] LABCLIA [id number] [place] [address] [place] Sodium [Moles/Vol] 138 mmol/L Normal 136-144 [facility] Comment on above: Order Comment: Speci men Type: BLOOD SPECIMENOrdering Facility: [facility] Address: [address] [place] [address] Performed By: #### 2 4323-8, 56388-9, 2777-1, 3084-1 ####[facility] LABIA [id number] [place] [address] [place] Urea nitrogen [Mass/Vol] 12 mg/dL Normal 7-21 [facility] Comment on above: Order Comment: Speci men Type: BLOOD SPECIMENOrdering Facility: [facility] Address: [address] [place] [address] Performed By: #### 2 4323-8, 02698-5, 2777-1, 3084-1 ####[facility] LABIA [id number] [place] [address] [place] Cryptoc Ag Spec Ql LAon Cryptococcus sp Ag LA Ql (Unsp spec) CRYPTOCOCCUS ANTIGEN : Cryptococcal Antigen NOT DETECTED by Lateral flow immunoassay. Normal [facility] Comment on above: Performed By: #### 4 3228-6 ####[facility] LABIA [id number] [place] [address] [place] ECG COMPLETEon 10-06-2024 ECG COMPLETE Normal [facility] ECHO LIMITEDon 10-06-2024 ECHO LIMITED Normal [facility] FUNGAL BATTERY IDon 10-06-19 25 Aspergillus sp Ab Immune diff Ql (S) Negative Normal Negative [facility] Comment on above: Order Comment: Speci patricia Type: BLOOD SPECIMENOrdering Facility: [facility] Address: [address] [place] [address] Result Comment: Aspe rgillus antibody test by immunodiffusion may be used as an aid in diagnosis of chronic pulmonary aspergillosis including chronic cavitary pulmonary aspergillosis and chronic fibrosing pulmonary aspergillosis. Immunodiffusion test is more specific but less sensitive than complement fixation test. Clinical correlation is required. Performed By: #### F UNID ####[facility] LABCLIA [id number] [place] [address] [place] B. dermatitidis Ab Immune diff Ql (S) Negative Normal Negative [facility] Comment on above: Order Comment: Pingi patricia Type: BLOOD SPECIMENOrdering Facility: [facility] Address: [address] [place] [address] Result Comment: John tomyces antibody test by Immunodiffusion may be used as an aid in diagnosis of infection with the dimorphic fungus Blastomyces dermatitidis. Blastomyces serology has low overall diagnostic sensitivity especially with localized disease. Immunodiffusion test is more specific but less sensitive than complement fixation test. Clinical and epidemiological correlation is required. Performed By: #### F UNID ####[facility] LABIA [id number] [place] [address] [place] Coccidioides sp Ab Immune diff Ql (S) Negative Normal Negative [facility] Comment on above: Order Comment: Speci patricia Type: BLOOD SPECIMENOrdering Facility: [facility] Address: [address] [place] [address] Result Comment: Cocc idioides antibody test by Immunodiffusion may be used as an aid in diagnosis of infection with the dimorphic fungus Coccidioides spp. Cannot exclude acute infection if the specimen collected 4-6 weeks after onset of signs and symptoms. Immunodiffusion test is more specific but less sensitive than EIA test. Clinical and epidemiological correlation is required. Performed By: #### F UNID ####[facility] LABCLIA [id number] [address] [id number] [address] [place] H. capsulatum Ab Immune diff Ql (S) Negative Normal Negative [facility] Comment on above: Order Comment: Speci men Type: BLOOD SPECIMENOrdering Facility: [facility] Address: [address] [place] [address] Result Comment: Hist oplasma antibody test by Immunodiffusion may be used as an aid in diagnosis of infection with the dimorphic fungus Histoplasma capsulatum. Histoplasma antibody test has low overall diagnostic sensitivity especially with localized disease. Immunodiffusion test is more specific but less sensitive than complement fixation test. Clinical and epidemiological correlation is required. Performed By: #### F UNID ####[facility] LABCLIA [id number] [place] [address] [place] Fibrinogen PPP-mCncon 2024 Fibrinogen Coag (PPP) [Mass/Vol] 761 mg/dL High 200-400 [facility] Comment on above: Order Comment: Speci men Type: BLOOD SPECIMENOrdering Facility: [facility] Address: [address] [place] [address] Result Comment: Resu lt rechecked.Sample checked for clot. Performed By: #### 3 255-7, 80189-8 ####[facility] LABCLIA [id number] [place] [address] [place] HISTOPLASMA AG URINEon 10-06 H. capsulatum Ag (U) [Mass/Vol] <0.2 Normal <0.2 [facility] Comment on above: Order Comment: Speci men Type: URINE SPECIMENOrdering Facility: [facility] Address: [address] [place] [address] Performed By: #### U HISTO ####[facility] LABIA [id number] [place] [address] [place] H. capsulatum Ag IA Ql (U) Negative Normal Negative [facility] Comment on above: Order Comment: Speci men Type: URINE SPECIMENOrdering Facility: [facility] Address: [address] [place] [address] Result Comment: Hist oplasma galactomannan antigen, urine test is used as an aid in diagnosing histoplasmosis. A negative result cannot rule out infection. Low positive results may at times be due to cross-reactivity with Blastomyces, Talaromyces marneffei, Paracoccidioides, and some Tracy species. Clinical radiological, and epidemiological correlation is required. Performed By: #### U HISTO ####[facility] LABCLIA [id number] [place] [address] [place] Legionella Ag Ur Qlon 2024 Legionella sp Ag Ql (U) Negative Normal Negative [facility] Comment on above: Order Comment: Speci men Type: URINE SPECIMENOrdering Facility: [facility] Address: [address] [place] [address] Result Comment: Legi onella urinary antigen test is used as an aid in diagnosis of infection with Legionella pneumophila serogroup 1. It may be detected from a few days to several months after onset of signs and symptoms despite antibiotic therapy or disease resolution. A negative result cannot exclude Legionellosis. Clinical correlation is required. Performed By: #### 3 2781-7 ####[facility] LABIA [id number] [place] [address] [place] Magnesium SerPl-mCncon 10-06 Magnesium [Mass/Vol] 2.1 mg/dL Normal 1.7-2.3 [facility] Comment on above: Order Comment: Speci men Type: BLOOD SPECIMENOrdering Facility: [facility] Address: [address] [place] [address] Performed By: #### 2 4323-8, 61589-4, 2777-1, 3084-1 ####[facility] LABIA [id number] [place] [address] [place] PT panel Coag (PPP)on 2024 INR Coag (PPP) [Relative time] 1.3 {INR} Normal 0.9-1.3 [facility] Comment on above: Order Comment: Speci men Type: BLOOD SPECIMENOrdering Facility: [facility] Address: [address] [place] [address] Result Comment: Dorene min K Antagonist (VKA) Therapeutic Range: INR 2 to 3 (Target INR of 2.5)Note: For patients treated with VKA drugs, such as warfarin, the [employer] 2012 Guideline recommends a therapeutic INR range of 2 to 3 (target INR of 2.5). This recommendation includes high-risk patients with antiphospholipid syndrome with previous arterial or venous thromboembolism, current-generation mechanical or bioprosthetic aortic heart valve replacement.Note: Patients with mechanical aortic valve replacement and additional risk factors for thromboembolic events (atrial fibrillation, previous thromboembolism, LV dysfunction, hypercoagulable conditions) or an older generation mechanical AVR (i.e., ball in-Cage) or any mechanical MVR should have a INR therapeutic range of 2.5 to 3.5 (target INR of 3).Dayan GH, et al. Chest 2012, 141:7S-47SNishkoffi RA, et al. [facility] 2017, 70: 252-289 Performed By: #### 3 255-7, 22046-8 ####[facility] [id number] [place] [address] [place] PT Coag (PPP) [Time] 14.0 s High 9.7-13.0 [facility] Comment on above: Order Comment: Jeremie gomez Type: BLOOD SPECIMENOrdering Facility: [facility] Address: [address] [place] [address] Performed By: #### 3 255-7, 51598-2 ####[facility] [id number] [place] [address] [place] Phosphate SerPl-mCncon 10-06 Phosphate [Mass/Vol] 2.0 mg/dL Low 2.7-4.8 [facility] Comment on above: Order Comment: Jeremie gomez Type: BLOOD SPECIMENOrdering Facility: [facility] Address: [address] [place] [address] Performed By: #### 2 777-1, 3084-1 ####[facility] LABCLIA [id number] [place] [address] [place] Phosphate [Mass/Vol] 2.8 mg/dL Normal 2.7-4.8 [facility] Comment on above: Order Comment: Speci men Type: BLOOD SPECIMENOrdering Facility: [facility] Address: [address] [place] [address] Performed By: #### 2 4323-8, 10642-6, 2777-1, 3084-1 ####[facility] LABCLIA [id number] [place] [address] [place] STAPHYLOCOCCUS AUREUS AND MR SA SCREEN, PCR, NASALon 10-06-2024 S. aureus and MRSA panel JANET+probe (Nose) Not detected Normal Not Detected [facility] Comment on above: Order Comment: Speci men Type: SWABOrdering Facility: [facility] Address: [address] [place] [address] Performed By: #### S APCR ####[facility] LABIA [id number] [place] [address] [place] STREPTOCOCCUS PNEUMONIAE ANT IGEN URINEon 10-06-2024 STREPTOCOCCUS PNEUMONIAE ANTIGEN URINE Normal [facility] Comment on above: Performed By: #### S PNAG ####[facility] LABCLIA [id number] [place] [address] [place] Urate SerPl-mCncon Urate [Mass/Vol] 1.1 mg/dL Low 2.5-6.6 [facility] Comment on above: Order Comment: Speci men Type: BLOOD SPECIMENOrdering Facility: [facility] Address: [address] [place] [address] Performed By: #### 2 777-1, 3084-1 ####[facility] LABCLIA [id number] [id number] [address] [place] Urate [Mass/Vol] 1.8 mg/dL Low 2.5-6.6 [facility] Comment on above: Order Comment: Speci men Type: BLOOD SPECIMENOrdering Facility: [facility] Address: [address] [place] [address] Performed By: #### 2 4323-8, 50497-4, 2777-1, 3084-1 ####[facility] LABCLIA [id number] [place] [address] [place] Bacteria Ur Culton 4 Bacteria identified Cx Nom (U) CULTURE, URINE: No growth (<1,000 CFU/ml) Normal [facility] Comment on above: Performed By: #### 6 30-4 ####[facility] LABCLIA [id number] [place] [address] [place] CBC W Auto Differential pane l (Bld)on 10-05-2024 Basophils (Bld) [#/Vol] 0.04 10*3/uL Normal <0.11 [facility] Comment on above: Order Comment: Speci men Type: BLOOD SPECIMENOrdering Facility: [facility] Address: [address] [place] [address] Performed By: #### 5 7021-8 ####[facility] LABIA [id number] [place] [address] [place] Basophils/100 WBC (Bld) 0.4 % Normal [facility] Comment on above: Order Comment: Speci men Type: BLOOD SPECIMENOrdering Facility: [facility] Address: [address] [place] [address] Performed By: #### 5 7021-8 ####[facility] LABCLIA [id number] [place] [address] [place] Differential cell count method Nom (Bld) Auto Normal [facility] Comment on above: Order Comment: Speci men Type: BLOOD SPECIMENOrdering Facility: [facility] Address: [address] [place] [address] Performed By: #### 5 7021-8 ####[facility] LABCLIA [id number] [place] [address] [place] Eosinophils (Bld) [#/Vol] 0.03 10*3/uL Normal <0.46 [facility] Comment on above: Order Comment: Speci men Type: BLOOD SPECIMENOrdering Facility: [facility] Address: [address] [place] [address] Performed By: #### 5 7021-8 ####[facility] LABCLIA [id number] [place] [address] [place] Eosinophils/100 WBC (Bld) 0.3 % Normal [facility] Comment on above: Order Comment: Speci men Type: BLOOD SPECIMENOrdering Facility: [facility] Address: [address] [place] [address] Performed By: #### 5 7021-8 ####[facility] LABCLIA [id number] [place] [address] [place] Erythrocyte distribution width (RBC) [Ratio] 20.0 % High 11.5-15.0 [facility] Comment on above: Order Comment: Speci men Type: BLOOD SPECIMENOrdering Facility: [facility] Address: [address] [place] [address] Performed By: #### 5 7021-8 ####[facility] LABCLIA [id number] [place] [address] [place] Hematocrit (Bld) [Volume fraction] 35.6 % Low 36.0-46.0 [facility] Comment on above: Order Comment: Speci men Type: BLOOD SPECIMENOrdering Facility: [facility] Address: [address] [place] [address] Performed By: #### 5 7021-8 ####[facility] LABCLIA [id number] [address] [id number] [address] [place] Hemoglobin (Bld) [Mass/Vol] 10.8 g/dL Low 11.5-15.5 [facility] Comment on above: Order Comment: Speci men Type: BLOOD SPECIMENOrdering Facility: [facility] Address: [address] [place] [address] Performed By: #### 5 7021-8 ####[facility] LABCLIA [id number] [place] [address] [place] Immature granulocytes (Bld) [#/Vol] 0.48 10*3/uL High <0.10 [facility] Comment on above: Order Comment: Speci men Type: BLOOD SPECIMENOrdering Facility: [facility] Address: [address] [place] [address] Performed By: #### 5 7021-8 ####[facility] LABCLIA [id number] [place] [address] [place] Immature granulocytes/100 WBC (Bld) 4.3 % Normal [facility] Comment on above: Order Comment: Speci men Type: BLOOD SPECIMENOrdering Facility: [facility] Address: [address] [place] [address] Performed By: #### 5 7021-8 ####[facility] LABCLIA [id number] [place] [address] [place] Lymphocytes (Bld) [#/Vol] 0.34 10*3/uL Low 1.00-4.00 [facility] Comment on above: Order Comment: Speci men Type: BLOOD SPECIMENOrdering Facility: [facility] Address: [address] [place] [address] Performed By: #### 5 7021-8 ####[facility] LABCLIA [id number] [place] [address] [place] Lymphocytes/100 WBC (Bld) 3.0 % Normal [facility] Comment on above: Order Comment: Speci men Type: BLOOD SPECIMENOrdering Facility: [facility] Address: [address] [place] [address] Performed By: #### 5 7021-8 ####[facility] LABCLIA [id number] [place] [address] [place] MCH (RBC) [Entitic mass] 23.3 pg Low 26.0-34.0 [facility] Comment on above: Order Comment: Speci men Type: BLOOD SPECIMENOrdering Facility: [facility] Address: [address] [place] [address] Performed By: #### 5 7021-8 ####[facility] LABIA [id number] [place] [address] [place] MCHC (RBC) [Mass/Vol] 30.3 g/dL Low 30.5-36.0 [facility] Comment on above: Order Comment: Speci men Type: BLOOD SPECIMENOrdering Facility: [facility] Address: [address] [place] [address] Performed By: #### 5 7021-8 ####[facility] LABIA [id number] [place] [address] [place] MCV (RBC) [Entitic vol] 76.9 fL Low 80.0-100.0 [facility] Comment on above: Order Comment: Speci men Type: BLOOD SPECIMENOrdering Facility: [facility] Address: [address] [place] [address] Performed By: #### 5 7021-8 ####[facility] LABCLIA [id number] [place] [address] [place] Monocytes (Bld) [#/Vol] 0.52 10*3/uL Normal <0.87 [facility] Comment on above: Order Comment: Speci men Type: BLOOD SPECIMENOrdering Facility: [facility] Address: [address] [place] [address] Performed By: #### 5 7021-8 ####[facility] LABCLIA [id number] [place] [address] [place] Monocytes/100 WBC (Bld) 4.6 % Normal [facility] Comment on above: Order Comment: Speci men Type: BLOOD SPECIMENOrdering Facility: [facility] Address: [address] [place] [address] Performed By: #### 5 7021-8 ####[facility] LABCLIA [id number] [place] [address] [place] Neutrophils (Bld) [#/Vol] 9.81 10*3/uL High 1.45-7.50 [facility] Comment on above: Order Comment: Speci men Type: BLOOD SPECIMENOrdering Facility: [facility] Address: [address] [place] [address] Performed By: #### 5 7021-8 ####[facility] LABCLIA [id number] [place] [address] [place] Neutrophils/100 WBC (Bld) 87.4 % Normal [facility] Comment on above: Order Comment: Speci men Type: BLOOD SPECIMENOrdering Facility: [facility] Address: [address] [place] [address] Performed By: #### 5 7021-8 ####[facility] LABIA [id number] [place] [address] [place] Nucleated RBC (Bld) [#/Vol] 10*3/uL Normal <0.01 [facility] Comment on above: Order Comment: Speci men Type: BLOOD SPECIMENOrdering Facility: [facility] Address: [address] [place] [address] Performed By: #### 5 7021-8 ####[facility] LABCLIA [id number] [place] [address] [place] Nucleated RBC/100 WBC (Bld) [Ratio] 0.0 /100 WBC Normal [facility] Comment on above: Order Comment: Speci men Type: BLOOD SPECIMENOrdering Facility: [facility] Address: [address] [place] [address] Performed By: #### 5 7021-8 ####[facility] LABCLIA [id number] [place] [address] [place] Platelet mean volume (Bld) [Entitic vol] 10.4 fL Normal 9.0-12.7 [facility] Comment on above: Order Comment: Speci men Type: BLOOD SPECIMENOrdering Facility: [facility] Address: [address] [place] [address] Performed By: #### 5 7021-8 ####[facility] LABIA [id number] [place] [address] [place] Platelets (Bld) [#/Vol] 233 10*3/uL Normal 150-400 [facility] Comment on above: Order Comment: Speci men Type: BLOOD SPECIMENOrdering Facility: [facility] Address: [address] [place] [address] Performed By: #### 5 7021-8 ####[facility] LABIA [id number] [place] [address] [place] RBC (Bld) [#/Vol] 4.63 10*6/uL Normal 3.90-5.20 [facility] Comment on above: Order Comment: Speci men Type: BLOOD SPECIMENOrdering Facility: [facility] Address: [address] [place] [address] Performed By: #### 5 7021-8 ####[facility] LABIA [id number] [place] [address] [place] WBC (Bld) [#/Vol] 11.22 10*3/uL High 3.70-11.00 [facility] Comment on above: Order Comment: Speci men Type: BLOOD SPECIMENOrdering Facility: [facility] Address: [address] [place] [address] Performed By: #### 5 7021-8 ####[facility] LABCLIA [id number] [place] [address] [place] CONSULT PROGon 10-05-2024 CONSULT PROG Normal [facility] CT ABD/PEL W IVCONon 024 CT ABD/PEL W IVCON Normal [facility] CT CHEST W IVCONon 4 CT CHEST W IVCON Normal [facility] Comprehensive metabolic 2000 panelon 10-05-2024 Albumin [Mass/Vol] 2.9 g/dL Low 3.9-4.9 [facility] Comment on above: Order Comment: Speci men Type: BLOOD SPECIMENOrdering Facility: [facility] Address: [address] [place] [address] Performed By: #### 2 777-1, 92449-5, 3083-10 ####[facility] LABCLIA [id number] [place] [address] [place] ALP [Catalytic activity/Vol] 117 U/L Normal 34-123 [facility] Comment on above: Order Comment: Speci men Type: BLOOD SPECIMENOrdering Facility: [facility] Address: [address] [place] [address] Performed By: #### 2 777-1, 87395-7, 3083-10 ####[facility] LABCLIA [id number] [place] [address] [place] ALT [Catalytic activity/Vol] 33 U/L Normal 7-38 [facility] Comment on above: Order Comment: Speci men Type: BLOOD SPECIMENOrdering Facility: [facility] Address: [address] [place] [address] Performed By: #### 2 777-1, 52789-7, 3083-10 ####[facility] LABCLIA [id number] [place] [address] [place] Anion gap [Moles/Vol] 10 mmol/L Normal 8-15 [facility] Comment on above: Order Comment: Speci men Type: BLOOD SPECIMENOrdering Facility: [facility] Address: [address] [place] [address] Performed By: #### 2 777-1, 64449-7, 3083-10 ####[facility] LABCLIA [id number] [address] [address] [place] AST [Catalytic activity/Vol] 21 U/L Normal 13-35 [facility] Comment on above: Order Comment: Speci men Type: BLOOD SPECIMENOrdering Facility: [facility] Address: [address] [place] [address] Performed By: #### 2 777-1, 80667-6, 3083-10 ####[facility] LABCLIA [id number] [address] [address] [place] Bilirubin [Mass/Vol] 1.6 mg/dL High 0.2-1.3 [facility] Comment on above: Order Comment: Speci men Type: BLOOD SPECIMENOrdering Facility: [facility] Address: [address] [place] [address] Performed By: #### 2 777-1, , 3083-10 ####[facility] LABCLIA [id number] [address] [address] [place] Calcium [Mass/Vol] 7.5 mg/dL Low 8.5-10.2 [facility] Comment on above: Order Comment: Speci men Type: BLOOD SPECIMENOrdering Facility: [facility] Address: [address] [place] [address] Performed By: #### 2 777-1, 96521-3, 3083-10 ####[facility] LABCLIA [id number] [address] [address] [place] Chloride [Moles/Vol] 106 mmol/L Normal 98-107 [facility] Comment on above: Order Comment: Speci men Type: BLOOD SPECIMENOrdering Facility: [facility] Address: [address] [place], [place] [address] Performed By: #### 2 777-1, , 3083-10 ####[facility] LABCLIA [id number] [place] [address] [place] CO2 [Moles/Vol] 23 mmol/L Normal 22-30 [facility] Comment on above: Order Comment: Speci men Type: BLOOD SPECIMENOrdering Facility: [facility] Address: [address] [place] [address] Performed By: #### 2 777-1, , 3083-10 ####[facility] LABCLIA [id number] [place] [address] [place] Creatinine [Mass/Vol] 0.50 mg/dL Low 0.58-0.96 [facility] Comment on above: Order Comment: Speci men Type: BLOOD SPECIMENOrdering Facility: [facility] Address: [address] [place] [address] Performed By: #### 2 777-1, , 3083-10 ####[facility] LABCLIA [id number] [place] [address] [place] Creatinine and Glomerular filtration rate.predicted panel (S/P/Bld) 123 mL/min/1.73m??? Normal >=60 [facility] Comment on above: Order Comment: Speci men Type: BLOOD SPECIMENOrdering Facility: [facility] Address: [address] [place] [address] Result Comment: Adina mated Glomerular Filtration Rate (eGFR) is calculated using the 2020 CKD-EPI creatinine equation. This equation utilizes serum creatinine, sex, and age as parameters. The creatinine assay has traceable calibration to isotope dilution-mass spectrometry. Refer to KDIGO guidelines for clinical interpretation. In patients with unstable renal function, e.g. those with acute kidney injury, the eGFR may not accurately reflect actual GFR. Performed By: #### 2 777-1, , 3083-10 ####[facility] LABCLIA [id number] [place] [address] [place] Glucose [Mass/Vol] 120 mg/dL High 74-99 [facility] Comment on above: Order Comment: Jeremie gomez Type: BLOOD SPECIMENOrdering Facility: [facility] Address: [address] [place] [address] Result Comment: The [place] Diabetes [employer] (ADA) provides guidance for cutoff values for fasting glucose and random glucose. The ADA defines fasting as no caloric intake for at least 8 hours. Fasting plasma glucose results between 100 to 125 mg/dL indicate increased risk for diabetes (prediabetes).Fasting plasma glucose results greater than or equal to 126 mg/dL meet the criteria for diagnosis of diabetes. In the absence of unequivocal hyperglycemia, results should be confirmed by repeat testing. In a patient with classic symptoms of hyperglycemia or hyperglycemic crisis, random plasma glucose results greater than or equal to 200 mg/dL meet the criteria for diagnosis of diabetes.Reference: Standards of Medical Care in Diabetes 2016, [place] [employer]. Diabetes Care. 2016.39(Suppl 1). Performed By: #### 2 777-1, 00459-0, 3083- ####[facility] LABIA [id number] [place] [address] [place] Potassium [Moles/Vol] 3.7 mmol/L Normal 3.7-5.1 [facility] Comment on above: Order Comment: Jeremie gomez Type: BLOOD SPECIMENOrdering Facility: [facility] Address: [address] [place] [address] Performed By: #### 2 777-1, 97821-0, 3083- ####[facility] LABIA [id number] [place] [address] [place] Protein [Mass/Vol] 5.1 g/dL Low 6.3-8.0 [facility] Comment on above: Order Comment: Pingi men Type: BLOOD SPECIMENOrdering Facility: [facility] Address: [address] [place] [address] Performed By: #### 2 777-1, 68701-3, 3084-1 ####[facility] LABCLIA [id number] [address] [address] [place] Sodium [Moles/Vol] 139 mmol/L Normal 136-144 [facility] Comment on above: Order Comment: Speci men Type: BLOOD SPECIMENOrdering Facility: [facility] Address: [address] [place] [address] Performed By: #### 2 777-1, 90814-7, 3084-1 ####[facility] LABCLIA [id number] [place] [address] [place] Urea nitrogen [Mass/Vol] 11 mg/dL Normal 7-21 [facility] Comment on above: Order Comment: Speci men Type: BLOOD SPECIMENOrdering Facility: [facility] Address: [address] [place] [address] Performed By: #### 2 777-1, 08228-1, 3084-1 ####[facility] LABCLIA [id number] [place] [address] [place] Albumin [Mass/Vol] 3.3 g/dL Low 3.9-4.9 [facility] Comment on above: Order Comment: Speci men Type: BLOOD SPECIMENOrdering Facility: [facility] Address: [address] [place] [address] Performed By: #### 2 4323-8, 78953-8, 19686-6, 3084-1, 2777-1 ####[facility] LABCLIA [id number] [place] [address] [place] ALP [Catalytic activity/Vol] 150 U/L High 34-123 [facility] Comment on above: Order Comment: Speci men Type: BLOOD SPECIMENOrdering Facility: [facility] Address: [address] [place] [address] Performed By: #### 2 4323-8, 98352-2, 83429-5, 3084-1, 2777-1 ####[facility] LABCLIA [id number] [address] [address] [place] ALT [Catalytic activity/Vol] 44 U/L High 7-38 [facility] Comment on above: Order Comment: Speci men Type: BLOOD SPECIMENOrdering Facility: [facility] Address: [address] [place] [address] Performed By: #### 2 4323-8, 40076-0, 31525-7, 3084-1, 2777-1 ####[facility] LABIA [id number] [place] [address] [place] Anion gap [Moles/Vol] 9 mmol/L Normal 8-15 [facility] Comment on above: Order Comment: Speci men Type: BLOOD SPECIMENOrdering Facility: [facility] Address: [address] [place] [address] Performed By: #### 2 4323-8, 78908-9, 60340-1, 3084-1, 2777-1 ####[facility] LABIA [id number] [place] [address] [place] AST [Catalytic activity/Vol] 24 U/L Normal 13-35 [facility] Comment on above: Order Comment: Speci men Type: BLOOD SPECIMENOrdering Facility: [facility] Address: [address] [place], [place] [address] Performed By: #### 2 4323-8, 82665-3, 02474-0, 3084-1, 2777-1 ####[facility] LABIA [id number] [place] [address] [place] Bilirubin [Mass/Vol] 2.4 mg/dL High 0.2-1.3 [facility] Comment on above: Order Comment: Speci men Type: BLOOD SPECIMENOrdering Facility: [facility] Address: [address] [place] [address] Performed By: #### 2 4323-8, 46990-7, 71841-8, 3084-1, 277-1 ####[facility] LABCLIA [id number] [address] [address] [place] Calcium [Mass/Vol] 8.8 mg/dL Normal 8.5-10.2 [facility] Comment on above: Order Comment: Speci men Type: BLOOD SPECIMENOrdering Facility: [facility] Address: [address] [place], [place] [address] Performed By: #### 2 4323-8, 95918-9, 21362-9, 3084-1, 2776-1 ####[facility] LABCLIA [id number] [place] [address] [place] Chloride [Moles/Vol] 99 mmol/L Normal 98-107 [facility] Comment on above: Order Comment: Speci men Type: BLOOD SPECIMENOrdering Facility: [facility] Address: [address] [place], [place] [address] Performed By: #### 2 4323-8, 18587-5, 61204-1, 4-1, 2776-1 ####[facility] LABCLIA [id number] [place] [address] [place] CO2 [Moles/Vol] 26 mmol/L Normal 22-30 [facility] Comment on above: Order Comment: Speci men Type: BLOOD SPECIMENOrdering Facility: [facility] Address: [address] [place] [address] Performed By: #### 2 4323-8, 18041-1, 44036-1, 3084-1, 2776-1 ####[facility] LABCLIA [id number] [place] [address] [place] Creatinine [Mass/Vol] 0.65 mg/dL Normal 0.58-0.96 [facility] Comment on above: Order Comment: Speci men Type: BLOOD SPECIMENOrdering Facility: [facility] Address: [address] [place] [address] Performed By: #### 2 4323-8, 63075-6, 41279-2, 3084-1, 2777-1 ####[facility] LABCLIA [id number] [place] [address] [place] Creatinine and Glomerular filtration rate.predicted panel (S/P/Bld) 115 mL/min/1.73m??? Normal >=60 [facility] Comment on above: Order Comment: Jeremie gomez Type: BLOOD SPECIMENOrdering Facility: [facility] Address: [address] [place] [address] Result Comment: Adina mated Glomerular Filtration Rate (eGFR) is calculated using the 2020 CKD-EPI creatinine equation. This equation utilizes serum creatinine, sex, and age as parameters. The creatinine assay has traceable calibration to isotope dilution-mass spectrometry. Refer to KDIGO guidelines for clinical interpretation. In patients with unstable renal function, e.g. those with acute kidney injury, the eGFR may not accurately reflect actual GFR. Performed By: #### 2 4323-8, 56523-7, 41049-8, 3084-1, 2777-1 ####[facility] LABCLIA [id number] [place] [address] [place] Glucose [Mass/Vol] 139 mg/dL High 74-99 [facility] Comment on above: Order Comment: Jeremie gomez Type: BLOOD SPECIMENOrdering Facility: [facility] Address: [address] [place] [address] Result Comment: The [place] Diabetes Association (ADA) provides guidance for cutoff values for fasting glucose and random glucose. The ADA defines fasting as no caloric intake for at least 8 hours. Fasting plasma glucose results between 100 to 125 mg/dL indicate increased risk for diabetes (prediabetes).Fasting plasma glucose results greater than or equal to 126 mg/dL meet the criteria for diagnosis of diabetes. In the absence of unequivocal hyperglycemia, results should be confirmed by repeat testing. In a patient with classic symptoms of hyperglycemia or hyperglycemic crisis, random plasma glucose results greater than or equal to 200 mg/dL meet the criteria for diagnosis of diabetes.Reference: Standards of Medical Care in Diabetes 2016, [place] [employer]. Diabetes Care. 2016.39(Suppl 1). Performed By: #### 2 4323-8, 06352-7, 55211-7, 3084-1, 2776-1 ####[facility] LABCLIA [id number] [address] [address] [place] Potassium [Moles/Vol] 4.0 mmol/L Normal 3.7-5.1 [facility] Comment on above: Order Comment: Speci men Type: BLOOD SPECIMENOrdering Facility: [facility] Address: [address] [place] [address] Performed By: #### 2 4323-8, 51939-4, 42952-4, 3084-1, 2776- ####[facility] LABCLIA [id number] [place] [address] [place] Protein [Mass/Vol] 5.9 g/dL Low 6.3-8.0 [facility] Comment on above: Order Comment: Speci men Type: BLOOD SPECIMENOrdering Facility: [facility] Address: [address] [place] [address] Performed By: #### 2 4323-8, 17259-4, 36584-5, 4-1, 2776-1 ####[facility] LABCLIA [id number] [place] [address] [place] Sodium [Moles/Vol] 134 mmol/L Low 136-144 [facility] Comment on above: Order Comment: Speci men Type: BLOOD SPECIMENOrdering Facility: [facility] Address: [address] [place] [id number] Performed By: #### 2 4323-8, 55021-5, 95195-7, 3084-1, 2776-1 ####[facility] LABCLIA [id number] [facility] [place] [id number] [place] Urea nitrogen [Mass/Vol] 13 mg/dL Normal 7-21 [facility] Comment on above: Order Comment: Speci men Type: BLOOD SPECIMENOrdering Facility: [facility] Address: [address] [place] [address] Performed By: #### 2 4323-8, 72007-7, 96415-6, 3084-1, 2777-1 ####[facility] LABCLIA [id number] [place] [address] [place] Fibrinogen PPP-mCncon 2023 Fibrinogen Coag (PPP) [Mass/Vol] 667 mg/dL High 200-400 [facility] Comment on above: Order Comment: Speci men Type: BLOOD SPECIMENOrdering Facility: [facility] Address: [address] [place] [address] Result Comment: Samp le checked for clot. Result rechecked. Performed By: #### 3 255-7, 89768-1 ####[facility] LABCLIA [id number] [place] [address] [place] Magnesium SerPl-mCncon 10-05 Magnesium [Mass/Vol] 2.1 mg/dL Normal 1.7-2.3 [facility] Comment on above: Order Comment: Speci men Type: BLOOD SPECIMENOrdering Facility: [facility] Address: [address] [place] [address] Performed By: #### 2 4323-8, 22583-2, 59376-7, 3084-1, 2777-1 ####[facility] LABCLIA [id number] [place] [address] [place] bilirubin panel [Ma ss/Vol]on 10-05-2024 Bilirubin [Mass/Vol] 2.0 mg/dL High 0.2-1.3 [facility] Comment on above: Order Comment: Speci men Type: BLOOD SPECIMENOrdering Facility: [facility] Address: [address] [place] [address] Performed By: #### 2 4323-8, 51034-5, 27024-0, 3084-1, 2777-1 ####[facility] LABIA [id number] [place] [address] [place] Bilirubin.conjugated [Mass/Vol] 0.6 mg/dL High <0.2 [facility] Comment on above: Order Comment: Speci patricia Type: BLOOD SPECIMENOrdering Facility: [facility] Address: [address] [place] [address] Performed By: #### 2 4323-8, 10876-9, 84159-9, 3084-1, 2777-1 ####[facility] [id number] [place] [address] [place] Bilirubin.indirect [Mass/Vol] 1.4 mg/dL High <1.4 [facility] Comment on above: Order Comment: Jeremie gomez Type: BLOOD SPECIMENOrdering Facility: [facility] Address: [address] [place] [address] Performed By: #### 2 4323-8, 02650-2, 21933-4, 3084-1, 2777-1 ####[facility] [id number] [place] [address] [place] PT panel Coag (PPP)on 2023 INR Coag (PPP) [Relative time] 1.4 {INR} High 0.9-1.3 [facility] Comment on above: Order Comment: Jeremie gomez Type: BLOOD SPECIMENOrdering Facility: [facility] Address: [address] [place] [address] Result Comment: Dorene min K Antagonist (VKA) Therapeutic Range: INR 2 to 3 (Target INR of 2.5)Note: For patients treated with VKA drugs, such as warfarin, the [place] [employer] 2012 Guideline recommends a therapeutic INR range of 2 to 3 (target INR of 2.5). This recommendation includes high-risk patients with antiphospholipid syndrome with previous arterial or venous thromboembolism, current-generation mechanical or bioprosthetic aortic heart valve replacement.Note: Patients with mechanical aortic valve replacement and additional risk factors for thromboembolic events (atrial fibrillation, previous thromboembolism, LV dysfunction, hypercoagulable conditions) or an older generation mechanical AVR (i.e., ball in-Cage) or any mechanical MVR should have a INR therapeutic range of 2.5 to 3.5 (target INR of 3).Dayan GH, et al. Chest 2012, 141:7S-47SNishdarionura RA, et al. [facility] 2017, 70: 252-289 Performed By: #### 3 255-7, 97417-6 ####[facility] LABIA [id number] [place] [address] [place] PT Coag (PPP) [Time] 14.9 s High 9.7-13.0 [facility] Comment on above: Order Comment: Speci men Type: BLOOD SPECIMENOrdering Facility: [facility] Address: [address] [place] [address] Performed By: #### 3 255-7, 23801-1 ####[facility] [id number] [place] [address] [place] Phosphate SerPl-mCncon 10-05 Phosphate [Mass/Vol] 2.1 mg/dL Low 2.7-4.8 [facility] Comment on above: Order Comment: Speci men Type: BLOOD SPECIMENOrdering Facility: [facility] Address: [address] [place] [address] Performed By: #### 2 777-1, 87010-4, 3084-1 ####[facility] [id number] [place] [address] [place] Phosphate [Mass/Vol] 3.7 mg/dL Normal 2.7-4.8 [facility] Comment on above: Order Comment: Speci men Type: BLOOD SPECIMENOrdering Facility: [facility] Address: [address] [place] [address] Performed By: #### 2 4323-8, 93192-2, 49044-9, 3084-1, 2777-1 ####[facility] LABIA [id number] [place] [address] [place] THERAPY NTon 10-05-2024 THERAPY NT Normal [facility] URINALYSIS, REFLEX MICROSCOP ICon 10-05-2024 Bacteria LM.HPF (Urine sed) [#/Area] Negative Normal Negative [facility] Comment on above: Order Comment: Speci men Type: URINE SPECIMENOrdering Facility: [facility] Address: [address] [place] [address] Performed By: #### L [id number] ####[facility] LABIA [id number] [place] [address] [place] Bilirubin Ql (U) Negative Normal Negative [facility] Comment on above: Order Comment: Speci men Type: URINE SPECIMENOrdering Facility: [facility] Address: [address] [place] [address] Performed By: #### L [id number] ####[facility] LABIA [id number] [place] [address] [place] Clarity (Unsp spec) Clear Normal Clear [facility] Comment on above: Order Comment: Speci men Type: URINE SPECIMENOrdering Facility: [facility] Address: [address] [place] [address] Performed By: #### L [id number] ####[facility] LABIA [id number] [place] [address] [place] Color (U) Yellow Normal Yellow [facility] Comment on above: Order Comment: Speci men Type: URINE SPECIMENOrdering Facility: [facility] Address: [address] [place] [address] Performed By: #### L [id number] ####[facility] LABIA [id number] [place] [address] [place] Epithelial cells LM.HPF (Urine sed) [#/Area] None Seen Normal [facility] Comment on above: Order Comment: Speci men Type: URINE SPECIMENOrdering Facility: [facility] Address: [address] [place] [address] Performed By: #### L [id number] ####[facility] LABCLIA [id number] [place] [address] [place] Glucose Test strip (U) [Mass/Vol] Negative Normal Negative [facility] Comment on above: Order Comment: Speci men Type: URINE SPECIMENOrdering Facility: [facility] Address: [address] [place] [address] Performed By: #### L [id number] ####[facility] LABCLIA [id number] [place] [address] [place] Hemoglobin Ql (U) Negative Normal Negative [facility] Comment on above: Order Comment: Speci men Type: URINE SPECIMENOrdering Facility: [facility] Address: [address] [place] [address] Performed By: #### L [id number] ####[facility] LABCLIA [id number] [place] [address] [place] Hyaline casts (Urine sed) [#/Area] 1-3 /LPF Abnormal 0 /LPF [facility] Comment on above: Order Comment: Speci men Type: URINE SPECIMENOrdering Facility: [facility] Address: [address] [place] [address] Performed By: #### L [id number] ####[facility] LABCLIA [id number] [place] [address] [place] Ketones Ql (U) Negative Normal Negative [facility] Comment on above: Order Comment: Speci men Type: URINE SPECIMENOrdering Facility: [facility] Address: [address] [place] [address] Performed By: #### L [id number] ####[facility] LABCLIA [id number] [place] [address] [place] Leukocyte esterase Test strip Ql (U) Negative Normal Negative [facility] Comment on above: Order Comment: Speci men Type: URINE SPECIMENOrdering Facility: [facility] Address: [address] [place] [address] Performed By: #### L [id number] ####[facility] LABIA [id number] [place] [address] [place] Nitrite Ql (U) Negative Normal Negative [facility] Comment on above: Order Comment: Speci men Type: URINE SPECIMENOrdering Facility: [facility] Address: [address] [place] [address] Performed By: #### L [id number] ####[facility] LABIA [id number] [place] [address] [place] pH (U) 8.0 [pH] Normal <8.5 [facility] Comment on above: Order Comment: Speci men Type: URINE SPECIMENOrdering Facility: [facility] Address: [address] [place] [address] Performed By: #### L [id number] ####[facility] LABIA [id number] [place] [address] [place] Protein (U) [Mass/Vol] 1+ Abnormal Negative [facility] Comment on above: Order Comment: Speci men Type: URINE SPECIMENOrdering Facility: [facility] Address: [address] [place] [address] Performed By: #### L [id number] ####[facility] LABIA [id number] [place] [address] [place] RBC LM.HPF (Urine sed) [#/Area] 0-2 /HPF Normal 0-2 /HPF [facility] Comment on above: Order Comment: Speci men Type: URINE SPECIMENOrdering Facility: [facility] Address: [address] [place] [address] Performed By: #### L [id number] ####[facility] LABIA [id number] [place] [address] [place] Specific gravity (U) [Rel density] >1.045 High 1.005-1.030 [facility] Comment on above: Order Comment: Speci men Type: URINE SPECIMENOrdering Facility: [facility] Address: [address] [place] [address] Performed By: #### L [id number] ####[facility] [id number] [place] [address] [place] Urobilinogen Ql (U) 1.0 EU/dL Normal 0.2-1.0 EU/dL [facility] Comment on above: Order Comment: Speci men Type: URINE SPECIMENOrdering Facility: [facility] Address: [address] [place] [address] Performed By: #### L [id number] ####[facility] [id number] [place] [address] [place] WBC LM.HPF (Urine sed) [#/Area] 0-5 /HPF Normal 0-5 /HPF [facility] Comment on above: Order Comment: Speci men Type: URINE SPECIMENOrdering Facility: [facility] Address: [address] [place] [address] Performed By: #### L [id number] ####[facility] [id number] [place] [address] [place] Urate SerPl-mCncon 4 Urate [Mass/Vol] 1.4 mg/dL Low 2.5-6.6 [facility] Comment on above: Order Comment: Speci men Type: BLOOD SPECIMENOrdering Facility: [facility] Address: [address] [place] [address] Performed By: #### 2 777-1, 36627-2, 3084-1 ####[facility] LABCLIA [id number] [place] [address] [place] Urate [Mass/Vol] 2.9 mg/dL Normal 2.5-6.6 [facility] Comment on above: Order Comment: Speci men Type: BLOOD SPECIMENOrdering Facility: [facility] Address: [address] [place] [address] Performed By: #### 2 4323-8, 08172-5, 12482-6, 3084-1, 2777-1 ####[facility] LABCLIA [id number] [place] [address] [place] Bacteria Bld Culton 10-04-20 Bacteria identified Cx Nom (Bld) CULTURE, BLOOD: No growth 5 days Normal [facility] Comment on above: Performed By: #### 6 00-7 ####[facility] LABCLIA [id number] [place] [address] [place] Bacteria identified Cx Nom (Bld) CULTURE, BLOOD: No growth 5 days Normal [facility] Comment on above: Performed By: #### 6 00-7 ####[facility] LABCLIA [id number] [place] [address] [place] CASE MANAGEMon 10-04-2024 CASE MANAGEM Normal [facility] CONSULT PROGon 10-04-2024 CONSULT PROG Normal [facility] Comprehensive metabolic 2000 panelon 10-04-2024 Albumin [Mass/Vol] 3.3 g/dL Low 3.9-4.9 [facility] Comment on above: Order Comment: Speci men Type: BLOOD SPECIMENOrdering Facility: [facility] Address: [address] [place] [address] Performed By: #### 2 4323-8, 2777-1, 3084-1 ####[facility] LABCLIA [id number] [place] [address] [place] ALP [Catalytic activity/Vol] 146 U/L High 34-123 [facility] Comment on above: Order Comment: Speci men Type: BLOOD SPECIMENOrdering Facility: [facility] Address: [address] [place] [address] Performed By: #### 2 4323-8, 2777-1, 308-1 ####[facility] LABCLIA [id number] [place] [address] [place] ALT [Catalytic activity/Vol] 49 U/L High 7-38 [facility] Comment on above: Order Comment: Speci men Type: BLOOD SPECIMENOrdering Facility: [facility] Address: [address] [place] [address] Performed By: #### 2 4323-8, 277-1, 3083- ####[facility] LABCLIA [id number] [place] [address] [place] Anion gap [Moles/Vol] 13 mmol/L Normal 8-15 [facility] Comment on above: Order Comment: Speci men Type: BLOOD SPECIMENOrdering Facility: [facility] Address: [address] [place] [address] Performed By: #### 2 4323-8, 277-, 308- ####[facility] LABCLIA [id number] [place] [address] [place] AST [Catalytic activity/Vol] 33 U/L Normal 13-35 [facility] Comment on above: Order Comment: Speci men Type: BLOOD SPECIMENOrdering Facility: [facility] Address: [address] [place] [address] Result Comment: Resu lts may be falsely increased due to interference from hemolysis. Suggest reorder as clinically indicated. Performed By: #### 2 4323-8, 2777-1, 308-1 ####[facility] LABCLIA [id number] [place] [address] [place] Bilirubin [Mass/Vol] 2.0 mg/dL High 0.2-1.3 [facility] Comment on above: Order Comment: Speci men Type: BLOOD SPECIMENOrdering Facility: [facility] Address: [address] [place], [place] [address] Performed By: #### 2 4323-8, 2776-, 3083-10 ####[facility] LABCLIA [id number] [facility] [place] [address] [place] Calcium [Mass/Vol] 8.9 mg/dL Normal 8.5-10.2 [facility] Comment on above: Order Comment: Speci men Type: BLOOD SPECIMENOrdering Facility: [facility] Address: [address] [place] [address] Performed By: #### 2 4323-8, 2776-10, 3083-10 ####[facility] LABCLIA [id number] [place] [address] [place] Chloride [Moles/Vol] 98 mmol/L Normal 98-107 [facility] Comment on above: Order Comment: Speci men Type: BLOOD SPECIMENOrdering Facility: [facility] Address: [address] [place] [address] Performed By: #### 2 4323-8, 2776-10, 3083-10 ####[facility] LABCLIA [id number] [place] [address] [place] CO2 [Moles/Vol] 23 mmol/L Normal 22-30 [facility] Comment on above: Order Comment: Speci men Type: BLOOD SPECIMENOrdering Facility: [facility] Address: [address] [place] [address] Performed By: #### 2 4323-8, 2776-10, 3083-10 ####[facility] LABCLIA [id number] [facility] [address] [address] [place] Creatinine [Mass/Vol] 0.46 mg/dL Low 0.58-0.96 [facility] Comment on above: Order Comment: Jeremie gomez Type: BLOOD SPECIMENOrdering Facility: [facility] Address: [address] [place] [address] Performed By: #### 2 4323-8, 2777-1, 3084-1 ####[facility] LABCLIA [id number] [place] [address] [place] Creatinine and Glomerular filtration rate.predicted panel (S/P/Bld) 125 mL/min/1.73m??? Normal >=60 [facility] Comment on above: Order Comment: Jeremie gomez Type: BLOOD SPECIMENOrdering Facility: [facility] Address: [address] [place] [address] Result Comment: Adina mated Glomerular Filtration Rate (eGFR) is calculated using the 2020 CKD-EPI creatinine equation. This equation utilizes serum creatinine, sex, and age as parameters. The creatinine assay has traceable calibration to isotope dilution-mass spectrometry. Refer to KDIGO guidelines for clinical interpretation. In patients with unstable renal function, e.g. those with acute kidney injury, the eGFR may not accurately reflect actual GFR. Performed By: #### 2 4323-8, 2777-1, 3084-1 ####[facility] LABCLIA [id number] [place] [address] [place] Glucose [Mass/Vol] 113 mg/dL High 74-99 [facility] Comment on above: Order Comment: Jeremie gomez Type: BLOOD SPECIMENOrdering Facility: [facility] Address: [address] [place] [address] Result Comment: The [place] [employer] (ADA) provides guidance for cutoff values for fasting glucose and random glucose. The ADA defines fasting as no caloric intake for at least 8 hours. Fasting plasma glucose results between 100 to 125 mg/dL indicate increased risk for diabetes (prediabetes).Fasting plasma glucose results greater than or equal to 126 mg/dL meet the criteria for diagnosis of diabetes. In the absence of unequivocal hyperglycemia, results should be confirmed by repeat testing. In a patient with classic symptoms of hyperglycemia or hyperglycemic crisis, random plasma glucose results greater than or equal to 200 mg/dL meet the criteria for diagnosis of diabetes.Reference: Standards of Medical Care in Diabetes 2016, [place] [employer]. Diabetes Care. 2016.39(Suppl 1). Performed By: #### 2 4323-8, 2776-, 3083- ####[facility] LABCLIA [id number] [address] [address] [place] Potassium [Moles/Vol] 4.7 mmol/L Normal 3.7-5.1 [facility] Comment on above: Order Comment: Speci men Type: BLOOD SPECIMENOrdering Facility: [facility] Address: [address] [place], [place] [address] Performed By: #### 2 4323-8, 2776-10, 3083-10 ####[facility] LABCLIA [id number] [place] [address] [place] Protein [Mass/Vol] 6.0 g/dL Low 6.3-8.0 [facility] Comment on above: Order Comment: Speci men Type: BLOOD SPECIMENOrdering Facility: [facility] Address: [address] [place] [address] Performed By: #### 2 4323-8, 2776-10, 3083-10 ####[facility] LABCLIA [id number] [place] [address] [place] Sodium [Moles/Vol] 134 mmol/L Low 136-144 [facility] Comment on above: Order Comment: Speci men Type: BLOOD SPECIMENOrdering Facility: [facility] Address: [address] [place] [address] Performed By: #### 2 4323-8, 27704-05, 3083-10 ####[facility] LABCLIA [id number] [address] [address] [place] Urea nitrogen [Mass/Vol] 10 mg/dL Normal 7-21 [facility] Comment on above: Order Comment: Speci men Type: BLOOD SPECIMENOrdering Facility: [facility] Address: [address] [place] [address] Performed By: #### 2 4323-8, 2777-1, 3083-1 ####[facility] LABCLIA [id number] [place] [address] [place] ECG COMPLETEon 10-04-2024 ECG COMPLETE Normal [facility] Phosphate SerPl-mCncon 10-04 Phosphate [Mass/Vol] 3.4 mg/dL Normal 2.7-4.8 [facility] Comment on above: Order Comment: Speci men Type: BLOOD SPECIMENOrdering Facility: [facility] Address: [address] [place] [address] Performed By: #### 2 4323-8, 277-, 3083- ####[facility] LABCLIA [id number] [place] [address] [place] SOCIAL WORKon 10-04-2024 SOCIAL WORK Normal [facility] THERAPY NTon 10-04-2024 THERAPY NT Normal [facility] THERAPY NT Normal [facility] Urate SerPl-ncon Urate [Mass/Vol] 3.0 mg/dL Normal 2.5-6.6 [facility] Comment on above: Order Comment: Speci men Type: BLOOD SPECIMENOrdering Facility: [facility] Address: [address] [place] [address] Performed By: #### 2 4323-8, 277-, 3083- ####[facility] LABIA [id number] [place] [address] [place] CBC W Auto Differential pane l (Bld)on 10-03-2024 Basophils (Bld) [#/Vol] 10*3/uL Normal <0.11 [facility] Comment on above: Order Comment: Speci men Type: BLOOD SPECIMENOrdering Facility: [facility] Address: [address] [place] [address] Performed By: #### 5 7021-8 ####[facility] LABCLIA [id number] [place] [address] [place] Basophils/100 WBC (Bld) 0.2 % Normal [facility] Comment on above: Order Comment: Speci men Type: BLOOD SPECIMENOrdering Facility: [facility] Address: [address] [place] [address] Performed By: #### 5 7021-8 ####[facility] LABCLIA [id number] [place] [address] [place] Differential cell count method Nom (Bld) Auto Normal [facility] Comment on above: Order Comment: Speci men Type: BLOOD SPECIMENOrdering Facility: [facility] Address: [address] [place] [address] Performed By: #### 5 7021-8 ####[facility] LABCLIA [id number] [place] [address] [place] Eosinophils (Bld) [#/Vol] 0.12 10*3/uL Normal <0.46 [facility] Comment on above: Order Comment: Speci men Type: BLOOD SPECIMENOrdering Facility: [facility] Address: [address] [place] [address] Performed By: #### 5 7021-8 ####[facility] LABCLIA [id number] [place] [address] [place] Eosinophils/100 WBC (Bld) 1.2 % Normal [facility] Comment on above: Order Comment: Speci men Type: BLOOD SPECIMENOrdering Facility: [facility] Address: [address] [place] [address] Performed By: #### 5 7021-8 ####[facility] LABCLIA [id number] [place] [address] [place] Erythrocyte distribution width (RBC) [Ratio] 20.6 % High 11.5-15.0 [facility] Comment on above: Order Comment: Speci men Type: BLOOD SPECIMENOrdering Facility: [facility] Address: [address] [place] [address] Performed By: #### 5 7021-8 ####[facility] LABCLIA [id number] [place] [address] [place] Hematocrit (Bld) [Volume fraction] 39.6 % Normal 36.0-46.0 [facility] Comment on above: Order Comment: Speci men Type: BLOOD SPECIMENOrdering Facility: [facility] Address: [address] [place] [address] Performed By: #### 5 7021-8 ####[facility] LABCLIA [id number] [place] [address] [place] Hemoglobin (Bld) [Mass/Vol] 11.7 g/dL Normal 11.5-15.5 [facility] Comment on above: Order Comment: Speci men Type: BLOOD SPECIMENOrdering Facility: [facility] Address: [address] [place] [address] Performed By: #### 5 7021-8 ####[facility] LABCLIA [id number] [place] [address] [place] Immature granulocytes (Bld) [#/Vol] 0.11 10*3/uL High <0.10 [facility] Comment on above: Order Comment: Speci men Type: BLOOD SPECIMENOrdering Facility: [facility] Address: [address] [place] [address] Performed By: #### 5 7021-8 ####[facility] LABCLIA [id number] [place] [address] [place] Immature granulocytes/100 WBC (Bld) 1.1 % Normal [facility] Comment on above: Order Comment: Speci men Type: BLOOD SPECIMENOrdering Facility: [facility] Address: [address] [place] [address] Performed By: #### 5 7021-8 ####[facility] LABCLIA [id number] [place] [address] [place] Lymphocytes (Bld) [#/Vol] 0.33 10*3/uL Low 1.00-4.00 [facility] Comment on above: Order Comment: Speci men Type: BLOOD SPECIMENOrdering Facility: [facility] Address: [address] [place] [address] Performed By: #### 5 7021-8 ####[facility] LABIA [id number] [place] [address] [place] Lymphocytes/100 WBC (Bld) 3.2 % Normal [facility] Comment on above: Order Comment: Speci men Type: BLOOD SPECIMENOrdering Facility: [facility] Address: [address] [place] [address] Performed By: #### 5 7021-8 ####[facility] LABIA [id number] [place] [address] [place] MCH (RBC) [Entitic mass] 23.0 pg Low 26.0-34.0 [facility] Comment on above: Order Comment: Speci men Type: BLOOD SPECIMENOrdering Facility: [facility] Address: [address] [place] [address] Performed By: #### 5 7021-8 ####[facility] LABIA [id number] [place] [address] [place] MCHC (RBC) [Mass/Vol] 29.5 g/dL Low 30.5-36.0 [facility] Comment on above: Order Comment: Speci men Type: BLOOD SPECIMENOrdering Facility: [facility] Address: [address] [place] [address] Performed By: #### 5 7021-8 ####[facility] LABIA [id number] [place] [address] [place] MCV (RBC) [Entitic vol] 77.8 fL Low 80.0-100.0 [facility] Comment on above: Order Comment: Speci men Type: BLOOD SPECIMENOrdering Facility: [facility] Address: [address] [place] [address] Performed By: #### 5 7021-8 ####[facility] LABCLIA [id number] [place] [address] [place] Monocytes (Bld) [#/Vol] 0.58 10*3/uL Normal <0.87 [facility] Comment on above: Order Comment: Speci men Type: BLOOD SPECIMENOrdering Facility: [facility] Address: [address] [place] [address] Performed By: #### 5 7021-8 ####[facility] LABCLIA [id number] [place] [address] [place] Monocytes/100 WBC (Bld) 5.7 % Normal [facility] Comment on above: Order Comment: Speci men Type: BLOOD SPECIMENOrdering Facility: [facility] Address: [address] [place] [address] Performed By: #### 5 7021-8 ####[facility] LABCLIA [id number] [place] [address] [place] Neutrophils (Bld) [#/Vol] 9.03 10*3/uL High 1.45-7.50 [facility] Comment on above: Order Comment: Speci men Type: BLOOD SPECIMENOrdering Facility: [facility] Address: [address] [place] [address] Performed By: #### 5 7021-8 ####[facility] LABCLIA [id number] [place] [address] [place] Neutrophils/100 WBC (Bld) 88.6 % Normal [facility] Comment on above: Order Comment: Speci men Type: BLOOD SPECIMENOrdering Facility: [facility] Address: [address] [place] [address] Performed By: #### 5 7021-8 ####[facility] LABCLIA [id number] [place] [address] [place] Nucleated RBC (Bld) [#/Vol] 10*3/uL Normal <0.01 [facility] Comment on above: Order Comment: Speci men Type: BLOOD SPECIMENOrdering Facility: [facility] Address: [address] [place] [address] Performed By: #### 5 7021-8 ####[facility] LABCLIA [id number] [place] [address] [place] Nucleated RBC/100 WBC (Bld) [Ratio] 0.0 /100 WBC Normal [facility] Comment on above: Order Comment: Speci men Type: BLOOD SPECIMENOrdering Facility: [facility] Address: [address] [place] [address] Performed By: #### 5 7021-8 ####[facility] LABIA [id number] [place] [address] [place] Platelet mean volume (Bld) [Entitic vol] 10.3 fL Normal 9.0-12.7 [facility] Comment on above: Order Comment: Speci men Type: BLOOD SPECIMENOrdering Facility: [facility] Address: [address] [place] [address] Performed By: #### 5 7021-8 ####[facility] LABIA [id number] [place] [address] [place] Platelets (Bld) [#/Vol] 279 10*3/uL Normal 150-400 [facility] Comment on above: Order Comment: Speci men Type: BLOOD SPECIMENOrdering Facility: [facility] Address: [address] [place] [address] Performed By: #### 5 7021-8 ####[facility] LABCLIA [id number] [place] [address] [place] RBC (Bld) [#/Vol] 5.09 10*6/uL Normal 3.90-5.20 [facility] Comment on above: Order Comment: Speci men Type: BLOOD SPECIMENOrdering Facility: [facility] Address: [address] [place] [address] Performed By: #### 5 7021-8 ####[facility] LABCLIA [id number] [place] [address] [place] WBC (Bld) [#/Vol] 10.19 10*3/uL Normal 3.70-11.00 [facility] Comment on above: Order Comment: Speci men Type: BLOOD SPECIMENOrdering Facility: [facility] Address: [address] [place] [address] Performed By: #### 5 7021-8 ####[facility] LABCLIA [id number] [place] [address] [place] Basophils (Bld) [#/Vol] 0.03 10*3/uL Normal <0.11 [facility] Comment on above: Order Comment: Speci men Type: BLOOD SPECIMENOrdering Facility: [facility] Address: [address] [place] [address] Performed By: #### 5 7021-8 ####[facility] LABCLIA [id number] [place] [address] [place] Basophils/100 WBC (Bld) 0.3 % Normal [facility] Comment on above: Order Comment: Speci men Type: BLOOD SPECIMENOrdering Facility: [facility] Address: [address] [place] [address] Performed By: #### 5 7021-8 ####[facility] LABCLIA [id number] [place] [address] [place] Differential cell count method Nom (Bld) Auto Normal [facility] Comment on above: Order Comment: Speci men Type: BLOOD SPECIMENOrdering Facility: [facility] Address: [address] [place] [address] Performed By: #### 5 7021-8 ####[facility] LABCLIA [id number] [place] [address] [place] Eosinophils (Bld) [#/Vol] 0.07 10*3/uL Normal <0.46 [facility] Comment on above: Order Comment: Speci men Type: BLOOD SPECIMENOrdering Facility: [facility] Address: [address] [place] [address] Performed By: #### 5 7021-8 ####[facility] LABCLIA [id number] [place] [address] [place] Eosinophils/100 WBC (Bld) 0.6 % Normal [facility] Comment on above: Order Comment: Speci men Type: BLOOD SPECIMENOrdering Facility: [facility] Address: [address] [place] [address] Performed By: #### 5 7021-8 ####[facility] LABCLIA [id number] [place] [address] [place] Erythrocyte distribution width (RBC) [Ratio] 20.0 % High 11.5-15.0 [facility] Comment on above: Order Comment: Speci men Type: BLOOD SPECIMENOrdering Facility: [facility] Address: [address] [place] [address] Performed By: #### 5 7021-8 ####[facility] LABCLIA [id number] [place] [address] [place] Hematocrit (Bld) [Volume fraction] 36.1 % Normal 36.0-46.0 [facility] Comment on above: Order Comment: Speci men Type: BLOOD SPECIMENOrdering Facility: [facility] Address: [address] [place] [address] Performed By: #### 5 7021-8 ####[facility] LABCLIA [id number] [place] [address] [place] Hemoglobin (Bld) [Mass/Vol] 10.6 g/dL Low 11.5-15.5 [facility] Comment on above: Order Comment: Speci men Type: BLOOD SPECIMENOrdering Facility: [facility] Address: [address] [place] [address] Performed By: #### 5 7021-8 ####[facility] LABCLIA [id number] [place] [address] [place] Immature granulocytes (Bld) [#/Vol] 0.39 10*3/uL High <0.10 [facility] Comment on above: Order Comment: Speci men Type: BLOOD SPECIMENOrdering Facility: [facility] Address: [address] [place] [address] Performed By: #### 5 7021-8 ####[facility] LABCLIA [id number] [place] [address] [place] Immature granulocytes/100 WBC (Bld) 3.5 % Normal [facility] Comment on above: Order Comment: Speci men Type: BLOOD SPECIMENOrdering Facility: [facility] Address: [address] [place] [address] Performed By: #### 5 7021-8 ####[facility] LABCLIA [id number] [place] [address] [place] Lymphocytes (Bld) [#/Vol] 0.41 10*3/uL Low 1.00-4.00 [facility] Comment on above: Order Comment: Speci men Type: BLOOD SPECIMENOrdering Facility: [facility] Address: [address] [place] [address] Performed By: #### 5 7021-8 ####[facility] LABCLIA [id number] [place] [address] [place] Lymphocytes/100 WBC (Bld) 3.6 % Normal [facility] Comment on above: Order Comment: Speci men Type: BLOOD SPECIMENOrdering Facility: [facility] Address: [address] [place] [address] Performed By: #### 5 7021-8 ####[facility] LABIA [id number] [place] [address] [place] MCH (RBC) [Entitic mass] 23.2 pg Low 26.0-34.0 [facility] Comment on above: Order Comment: Speci men Type: BLOOD SPECIMENOrdering Facility: [facility] Address: [address] [place] [address] Performed By: #### 5 7021-8 ####[facility] [id number] [place] [address] [place] MCHC (RBC) [Mass/Vol] 29.4 g/dL Low 30.5-36.0 [facility] Comment on above: Order Comment: Speci men Type: BLOOD SPECIMENOrdering Facility: [facility] Address: [address] [place] [address] Performed By: #### 5 7021-8 ####[facility] [id number] [place] [address] [place] MCV (RBC) [Entitic vol] 79.0 fL Low 80.0-100.0 [facility] Comment on above: Order Comment: Speci men Type: BLOOD SPECIMENOrdering Facility: [facility] Address: [address] [place] [address] Performed By: #### 5 7021-8 ####[facility] LABIA [id number] [place] [address] [place] Monocytes (Bld) [#/Vol] 0.75 10*3/uL Normal <0.87 [facility] Comment on above: Order Comment: Speci men Type: BLOOD SPECIMENOrdering Facility: [facility] Address: [address] [place] [address] Performed By: #### 5 7021-8 ####[facility] [id number] [place] [address] [place] Monocytes/100 WBC (Bld) 6.7 % Normal [facility] Comment on above: Order Comment: Speci men Type: BLOOD SPECIMENOrdering Facility: [facility] Address: [address] [place] [address] Performed By: #### 5 7021-8 ####[facility] LABCLIA [id number] [place] [address] [place] Neutrophils (Bld) [#/Vol] 9.61 10*3/uL High 1.45-7.50 [facility] Comment on above: Order Comment: Speci men Type: BLOOD SPECIMENOrdering Facility: [facility] Address: [address] [place] [address] Performed By: #### 5 7021-8 ####[facility] LABCLIA [id number] [place] [address] [place] Neutrophils/100 WBC (Bld) 85.3 % Normal [facility] Comment on above: Order Comment: Speci men Type: BLOOD SPECIMENOrdering Facility: [facility] Address: [address] [place] [address] Performed By: #### 5 7021-8 ####[facility] LABCLIA [id number] [place] [address] [place] Nucleated RBC (Bld) [#/Vol] 0.04 10*3/uL High <0.01 [facility] Comment on above: Order Comment: Speci men Type: BLOOD SPECIMENOrdering Facility: [facility] Address: [address] [place] [address] Performed By: #### 5 7021-8 ####[facility] LABCLIA [id number] [place] [address] [place] Nucleated RBC/100 WBC (Bld) [Ratio] 0.4 /100 WBC Normal [facility] Comment on above: Order Comment: Speci men Type: BLOOD SPECIMENOrdering Facility: [facility] Address: [address] [place] [address] Performed By: #### 5 7021-8 ####[facility] LABIA [id number] [place] [address] [place] Platelet mean volume (Bld) [Entitic vol] 10.0 fL Normal 9.0-12.7 [facility] Comment on above: Order Comment: Speci men Type: BLOOD SPECIMENOrdering Facility: [facility] Address: [address] [place] [address] Performed By: #### 5 7021-8 ####[facility] LABIA [id number] [place] [address] [place] Platelets (Bld) [#/Vol] 261 10*3/uL Normal 150-400 [facility] Comment on above: Order Comment: Speci men Type: BLOOD SPECIMENOrdering Facility: [facility] Address: [address] [place] [address] Performed By: #### 5 7021-8 ####[facility] LABIA [id number] [place] [address] [place] RBC (Bld) [#/Vol] 4.57 10*6/uL Normal 3.90-5.20 [facility] Comment on above: Order Comment: Speci men Type: BLOOD SPECIMENOrdering Facility: [facility] Address: [address] [place] [address] Performed By: #### 5 7021-8 ####[facility] LABIA [id number] [place] [address] [place] WBC (Bld) [#/Vol] 11.26 10*3/uL High 3.70-11.00 [facility] Comment on above: Order Comment: Speci men Type: BLOOD SPECIMENOrdering Facility: [facility] Address: [address] [place] [address] Performed By: #### 5 7021-8 ####[facility] LABCLIA [id number] [address] [address] [place] Comprehensive metabolic 2000 panelon 10-03-2024 Albumin [Mass/Vol] 3.4 g/dL Low 3.9-4.9 [facility] Comment on above: Order Comment: Speci men Type: BLOOD SPECIMENOrdering Facility: [facility] Address: [address] [place] [address] Performed By: #### 3 084-1, 81993-9, 2776-10, 33274-7 ####[facility] LABIA [id number] [place] [address] [place] ALP [Catalytic activity/Vol] 156 U/L High 34-123 [facility] Comment on above: Order Comment: Speci men Type: BLOOD SPECIMENOrdering Facility: [facility] Address: [address] [place] [address] Performed By: #### 3 084-1, 96262-6, 2776-10, 37993-8 ####[facility] [id number] [place] [address] [place] ALT [Catalytic activity/Vol] 52 U/L High 7-38 [facility] Comment on above: Order Comment: Speci men Type: BLOOD SPECIMENOrdering Facility: [facility] Address: [address] [place] [address] Performed By: #### 3 084-1, 22690-0, 2776-10, 22103-8 ####[facility] LABIA [id number] [place] [address] [place] Anion gap [Moles/Vol] 15 mmol/L Normal 8-15 [facility] Comment on above: Order Comment: Speci men Type: BLOOD SPECIMENOrdering Facility: [facility] Address: [address] [place] [address] Performed By: #### 3 084-1, 77123-1, 2776-10, ####[facility] LABCLIA [id number] [address] [address] [place] AST [Catalytic activity/Vol] 31 U/L Normal 13-35 [facility] Comment on above: Order Comment: Speci men Type: BLOOD SPECIMENOrdering Facility: [facility] Address: [address] [place] [address] Performed By: #### 3 084-1, 52884-8, 2776-10, ####[facility] LABIA [id number] [address] [address] [place] Bilirubin [Mass/Vol] 1.7 mg/dL High 0.2-1.3 [facility] Comment on above: Order Comment: Speci men Type: BLOOD SPECIMENOrdering Facility: [facility] Address: [address] [place] [address] Performed By: #### 3 084-1, 25492-9, 2776-10, ####[facility] LABIA [id number] [place] [address] [place] Calcium [Mass/Vol] 9.2 mg/dL Normal 8.5-10.2 [facility] Comment on above: Order Comment: Speci men Type: BLOOD SPECIMENOrdering Facility: [facility] Address: [address] [place] [address] Performed By: #### 3 084-1, 73878-6, 2776-10, ####[facility] LABIA [id number] [address] [address] [place] Chloride [Moles/Vol] 98 mmol/L Normal 98-107 [facility] Comment on above: Order Comment: Speci men Type: BLOOD SPECIMENOrdering Facility: [facility] Address: [address] [place] [address] Performed By: #### 3 084-1, 81431-5, 2776-10, ####[facility] LABCLIA [id number] [place] [address] [place] CO2 [Moles/Vol] 22 mmol/L Normal 22-30 [facility] Comment on above: Order Comment: Speci men Type: BLOOD SPECIMENOrdering Facility: [facility] Address: [address] [place] [address] Performed By: #### 3 084-1, , 2776-10, ####[facility] LABCLIA [id number] [place] [address] [place] Creatinine [Mass/Vol] 0.55 mg/dL Low 0.58-0.96 [facility] Comment on above: Order Comment: Speci men Type: BLOOD SPECIMENOrdering Facility: [facility] Address: [address] [place] [address] Performed By: #### 3 084-1, , 2776-10, ####[facility] LABIA [id number] [place] [address] [place] Creatinine and Glomerular filtration rate.predicted panel (S/P/Bld) 120 mL/min/1.73m??? Normal >=60 [facility] Comment on above: Order Comment: Speci men Type: BLOOD SPECIMENOrdering Facility: [facility] Address: [address] [place] [address] Result Comment: Adina mated Glomerular Filtration Rate (eGFR) is calculated using the 2020 CKD-EPI creatinine equation. This equation utilizes serum creatinine, sex, and age as parameters. The creatinine assay has traceable calibration to isotope dilution-mass spectrometry. Refer to KDIGO guidelines for clinical interpretation. In patients with unstable renal function, e.g. those with acute kidney injury, the eGFR may not accurately reflect actual GFR. Performed By: #### 3 084-1, 59687-6, 2776-10, ####[facility] LABCLIA [id number] [place] [address] [place] Glucose [Mass/Vol] 88 mg/dL Normal 74-99 [facility] Comment on above: Order Comment: Speci men Type: BLOOD SPECIMENOrdering Facility: [facility] Address: [address] [place] [address] Result Comment: The [place] [employer] (ADA) provides guidance for cutoff values for fasting glucose and random glucose. The ADA defines fasting as no caloric intake for at least 8 hours. Fasting plasma glucose results between 100 to 125 mg/dL indicate increased risk for diabetes (prediabetes).Fasting plasma glucose results greater than or equal to 126 mg/dL meet the criteria for diagnosis of diabetes. In the absence of unequivocal hyperglycemia, results should be confirmed by repeat testing. In a patient with classic symptoms of hyperglycemia or hyperglycemic crisis, random plasma glucose results greater than or equal to 200 mg/dL meet the criteria for diagnosis of diabetes.Reference: Standards of Medical Care in Diabetes 2016, [place] [employer]. Diabetes Care. 2016.39(Suppl 1). Performed By: #### 3 084-1, 89245-5, 27704-05, 08705-2 ####[facility] LABCLIA [id number] [place] [address] [place] Potassium [Moles/Vol] 4.4 mmol/L Normal 3.7-5.1 [facility] Comment on above: Order Comment: Pingi men Type: BLOOD SPECIMENOrdering Facility: [facility] Address: [address] [place] [address] Performed By: #### 3 084-1, 94946-4, 2776-10, 57133-6 ####[facility] LABCLIA [id number] [place] [address] [place] Protein [Mass/Vol] 6.1 g/dL Low 6.3-8.0 [facility] Comment on above: Order Comment: Speci men Type: BLOOD SPECIMENOrdering Facility: [facility] Address: [address] [place] [address] Performed By: #### 3 084-1, , 2776-10, ####[facility] LABCLIA [id number] [facility] [address] [address] [place] Sodium [Moles/Vol] 135 mmol/L Low 136-144 [facility] Comment on above: Order Comment: Speci men Type: BLOOD SPECIMENOrdering Facility: [facility] Address: [address] [place] [address] Performed By: #### 3 084-1, , 2776-10, ####[facility] LABCLIA [id number] [address] [address] [place] Urea nitrogen [Mass/Vol] 11 mg/dL Normal 7-21 [facility] Comment on above: Order Comment: Speci men Type: BLOOD SPECIMENOrdering Facility: [facility] Address: [address] [place] [address] Performed By: #### 3 084-1, , 2776-10, ####[facility] LABCLIA [id number] [address] [address] [place] Albumin [Mass/Vol] 3.2 g/dL Low 3.9-4.9 [facility] Comment on above: Order Comment: Speci men Type: BLOOD SPECIMENOrdering Facility: [facility] Address: [address] [place] [address] Performed By: #### 2 4323-8, 2776-10, 3083- ####[facility] LABCLIA [id number] [address] [address] [place] ALP [Catalytic activity/Vol] 129 U/L High 34-123 [facility] Comment on above: Order Comment: Speci men Type: BLOOD SPECIMENOrdering Facility: [facility] Address: [address] [place] [address] Performed By: #### 2 4323-8, 2776-, 308-1 ####[facility] LABCLIA [id number] [address] [address] [place] ALT [Catalytic activity/Vol] 55 U/L High 7-38 [facility] Comment on above: Order Comment: Speci men Type: BLOOD SPECIMENOrdering Facility: [facility] Address: [address] [place] [address] Performed By: #### 2 4323-8, 2777-1, 308-1 ####[facility] LABCLIA [id number] [place] [address] [place] Anion gap [Moles/Vol] 9 mmol/L Normal 8-15 [facility] Comment on above: Order Comment: Speci men Type: BLOOD SPECIMENOrdering Facility: [facility] Address: [address] [place] [address] Performed By: #### 2 4323-8, 277-1, 3083-1 ####[facility] LABCLIA [id number] [place] [address] [place] AST [Catalytic activity/Vol] 24 U/L Normal 13-35 [facility] Comment on above: Order Comment: Speci men Type: BLOOD SPECIMENOrdering Facility: [facility] Address: [address] [place] [address] Performed By: #### 2 4323-8, 277-1, 3083-1 ####[facility] LABCLIA [id number] [place] [address] [place] Bilirubin [Mass/Vol] 1.2 mg/dL Normal 0.2-1.3 [facility] Comment on above: Order Comment: Speci men Type: BLOOD SPECIMENOrdering Facility: [facility] Address: [address] [place] [address] Performed By: #### 2 4323-8, 2777-1, 3084-1 ####[facility] LABCLIA [id number] [place] [address] [place] Calcium [Mass/Vol] 8.5 mg/dL Normal 8.5-10.2 [facility] Comment on above: Order Comment: Speci men Type: BLOOD SPECIMENOrdering Facility: [facility] Address: [address] [place] [place] [address] Performed By: #### 2 4323-8, 2777-1, 3084-1 ####[facility] LABCLIA [id number] [place] [address] [place] Chloride [Moles/Vol] 100 mmol/L Normal 98-107 [facility] Comment on above: Order Comment: Speci men Type: BLOOD SPECIMENOrdering Facility: [facility] Address: [address] [place] [address] Performed By: #### 2 4323-8, 2777-1, 308-1 ####[facility] LABCLIA [id number] [place] [address] [place] CO2 [Moles/Vol] 26 mmol/L Normal 22-30 [facility] Comment on above: Order Comment: Speci men Type: BLOOD SPECIMENOrdering Facility: [facility] Address: [address] [place] [address] Performed By: #### 2 4323-8, 2777-1, 308-1 ####[facility] LABCLIA [id number] [place] [address] [place] Creatinine [Mass/Vol] 0.48 mg/dL Low 0.58-0.96 [facility] Comment on above: Order Comment: Speci men Type: BLOOD SPECIMENOrdering Facility: [facility] Address: [address] [place] [address] Performed By: #### 2 4323-8, 2777-1, 3084-1 ####[facility] LABCLIA [id number] [place] [address] [place] Creatinine and Glomerular filtration rate.predicted panel (S/P/Bld) 124 mL/min/1.73m??? Normal >=60 [facility] Comment on above: Order Comment: Jeremie gomez Type: BLOOD SPECIMENOrdering Facility: [facility] Address: [address] [place] [address] Result Comment: Adina mated Glomerular Filtration Rate (eGFR) is calculated using the 2020 CKD-EPI creatinine equation. This equation utilizes serum creatinine, sex, and age as parameters. The creatinine assay has traceable calibration to isotope dilution-mass spectrometry. Refer to KDIGO guidelines for clinical interpretation. In patients with unstable renal function, e.g. those with acute kidney injury, the eGFR may not accurately reflect actual GFR. Performed By: #### 2 4323-8, 2777-1, 3083- ####[facility] LABIA [id number] [place] [address] [place] Glucose [Mass/Vol] 84 mg/dL Normal 74-99 [facility] Comment on above: Order Comment: Jeremie gomez Type: BLOOD SPECIMENOrdering Facility: [facility] Address: [address] [place] [address] Result Comment: The [place] [employer] (ADA) provides guidance for cutoff values for fasting glucose and random glucose. The ADA defines fasting as no caloric intake for at least 8 hours. Fasting plasma glucose results between 100 to 125 mg/dL indicate increased risk for diabetes (prediabetes).Fasting plasma glucose results greater than or equal to 126 mg/dL meet the criteria for diagnosis of diabetes. In the absence of unequivocal hyperglycemia, results should be confirmed by repeat testing. In a patient with classic symptoms of hyperglycemia or hyperglycemic crisis, random plasma glucose results greater than or equal to 200 mg/dL meet the criteria for diagnosis of diabetes.Reference: Standards of Medical Care in Diabetes 2016, [place] [employer]. Diabetes Care. 2016.39(Suppl 1). Performed By: #### 2 4323-8, 2777-1, 3083-1 ####[facility] LABIA [id number] [address] [address] [place] Potassium [Moles/Vol] 4.4 mmol/L Normal 3.7-5.1 [facility] Comment on above: Order Comment: Speci men Type: BLOOD SPECIMENOrdering Facility: [facility] Address: [address] [place] [address] Performed By: #### 2 4323-8, 2776-, 3083- ####[facility] LABCLIA [id number] [place] [address] [place] Protein [Mass/Vol] 5.8 g/dL Low 6.3-8.0 [facility] Comment on above: Order Comment: Speci men Type: BLOOD SPECIMENOrdering Facility: [facility] Address: [address] [place] [address] Performed By: #### 2 4323-8, 2776-10, 3083-10 ####[facility] LABCLIA [id number] [place] [address] [place] Sodium [Moles/Vol] 135 mmol/L Low 136-144 [facility] Comment on above: Order Comment: Speci men Type: BLOOD SPECIMENOrdering Facility: [facility] Address: [address] [place] [address] Performed By: #### 2 4323-8, 2776-10, 3083-10 ####[facility] LABCLIA [id number] [place] [address] [place] Urea nitrogen [Mass/Vol] 12 mg/dL Normal 7-21 [facility] Comment on above: Order Comment: Speci men Type: BLOOD SPECIMENOrdering Facility: [facility] Address: [address] [place] [address] Performed By: #### 2 4323-8, 2776-10, 3083-10 ####[facility] LABCLIA [id number] [place] [address] [place] Albumin [Mass/Vol] 3.2 g/dL Low 3.9-4.9 [facility] Comment on above: Order Comment: Speci men Type: BLOOD SPECIMENOrdering Facility: [facility] Address: [address] [place] [address] Performed By: #### 1 9123-9, 89200-1, 3084-1, 277-1 ####[facility] LABCLIA [id number] [place] [address] [place] ALP [Catalytic activity/Vol] 125 U/L High 34-123 [facility] Comment on above: Order Comment: Speci men Type: BLOOD SPECIMENOrdering Facility: [facility] Address: [address] [place] [address] Performed By: #### 1 9123-9, 89278-5, 3084-1, 277- ####[facility] LABCLIA [id number] [place] [address] [place] ALT [Catalytic activity/Vol] 57 U/L High 7-38 [facility] Comment on above: Order Comment: Speci men Type: BLOOD SPECIMENOrdering Facility: [facility] Address: [address] [place] [address] Performed By: #### 1 9123-9, 30059-4, 308-1, 277- ####[facility] LABIA [id number] [place] [address] [place] Anion gap [Moles/Vol] 10 mmol/L Normal 8-15 [facility] Comment on above: Order Comment: Speci men Type: BLOOD SPECIMENOrdering Facility: [facility] Address: [address] [place] [address] Performed By: #### 1 9123-9, 09147-2, 3084-1, 277- ####[facility] LABIA [id number] [place] [address] [place] AST [Catalytic activity/Vol] 34 U/L Normal 13-35 [facility] Comment on above: Order Comment: Speci men Type: BLOOD SPECIMENOrdering Facility: [facility] Address: [address] [place], [place] [address] Performed By: #### 1 9123-9, 41254-9, 3084-1, 277-1 ####[facility] LABCLIA [id number] [place] [address] [place] Bilirubin [Mass/Vol] 0.8 mg/dL Normal 0.2-1.3 [facility] Comment on above: Order Comment: Speci men Type: BLOOD SPECIMENOrdering Facility: [facility] Address: [address] [place] [address] Performed By: #### 1 9123-9, 20597-3, 3084-1, 277- ####[facility] LABCLIA [id number] [place] [address] [place] Calcium [Mass/Vol] 8.8 mg/dL Normal 8.5-10.2 [facility] Comment on above: Order Comment: Speci men Type: BLOOD SPECIMENOrdering Facility: [facility] Address: [address] [place] [address] Performed By: #### 1 9123-9, 65935-9, 308-1, 277- ####[facility] LABCLIA [id number] [place] [address] [place] Chloride [Moles/Vol] 102 mmol/L Normal 98-107 [facility] Comment on above: Order Comment: Speci men Type: BLOOD SPECIMENOrdering Facility: [facility] Address: [address] [place], [place] [address] Performed By: #### 1 9123-9, 21727-1, 3084-1, 277- ####[facility] LABCLIA [id number] [place] [address] [place] CO2 [Moles/Vol] 25 mmol/L Normal 22-30 [facility] Comment on above: Order Comment: Speci men Type: BLOOD SPECIMENOrdering Facility: [facility] Address: [address] [place] [id number] Performed By: #### 1 9123-9, 76582-6, 3084-1, 2776- ####[facility] LABIA [id number] [place] [address] [place] Creatinine [Mass/Vol] 0.47 mg/dL Low 0.58-0.96 [facility] Comment on above: Order Comment: Speci men Type: BLOOD SPECIMENOrdering Facility: [facility] Address: [address] [place] [address] Performed By: #### 1 9123-9, 48123-0, 308-, 2776- ####[facility] [id number] [place] [address] [place] Creatinine and Glomerular filtration rate.predicted panel (S/P/Bld) 124 mL/min/1.73m??? Normal >=60 [facility] Comment on above: Order Comment: Speci men Type: BLOOD SPECIMENOrdering Facility: [facility] Address: [address] [place] [address] Result Comment: Adina mated Glomerular Filtration Rate (eGFR) is calculated using the 2020 CKD-EPI creatinine equation. This equation utilizes serum creatinine, sex, and age as parameters. The creatinine assay has traceable calibration to isotope dilution-mass spectrometry. Refer to KDIGO guidelines for clinical interpretation. In patients with unstable renal function, e.g. those with acute kidney injury, the eGFR may not accurately reflect actual GFR. Performed By: #### 1 9123-9, 59766-5, 3083-, 2776-10 ####[facility] LABIA [id number] [place] [address] [place] Glucose [Mass/Vol] 76 mg/dL Normal 74-99 [facility] Comment on above: Order Comment: Speci men Type: BLOOD SPECIMENOrdering Facility: [facility] Address: [address] [place] [address] Result Comment: The [place] Diabetes [employer] (ADA) provides guidance for cutoff values for fasting glucose and random glucose. The ADA defines fasting as no caloric intake for at least 8 hours. Fasting plasma glucose results between 100 to 125 mg/dL indicate increased risk for diabetes (prediabetes).Fasting plasma glucose results greater than or equal to 126 mg/dL meet the criteria for diagnosis of diabetes. In the absence of unequivocal hyperglycemia, results should be confirmed by repeat testing. In a patient with classic symptoms of hyperglycemia or hyperglycemic crisis, random plasma glucose results greater than or equal to 200 mg/dL meet the criteria for diagnosis of diabetes.Reference: Standards of Medical Care in Diabetes 2016, [place] [employer]. Diabetes Care. 2016.39(Suppl 1). Performed By: #### 1 9123-9, 86464-7, 308-, 277- ####[facility] LABCLIA [id number] [place] [address] [place] Potassium [Moles/Vol] 4.5 mmol/L Normal 3.7-5.1 [facility] Comment on above: Order Comment: Speci men Type: BLOOD SPECIMENOrdering Facility: [facility] Address: [address] [place] [address] Performed By: #### 1 9123-9, 00928-3, 3083-10, 2776-10 ####[facility] LABIA [id number] [place] [address] [place] Protein [Mass/Vol] 5.8 g/dL Low 6.3-8.0 [facility] Comment on above: Order Comment: Speci men Type: BLOOD SPECIMENOrdering Facility: [facility] Address: [address] [place] [address] Performed By: #### 1 9123-9, 80913-0, 30801-04, 27704-05 ####[facility] LABCLIA [id number] [place] [address] [place] Sodium [Moles/Vol] 137 mmol/L Normal 136-144 [facility] Comment on above: Order Comment: Speci men Type: BLOOD SPECIMENOrdering Facility: [facility] Address: [address] [place] [address] Performed By: #### 1 9123-9, 72575-2, 3084-1, 2777-1 ####[facility] LABCLIA [id number] [place] [address] [place] Urea nitrogen [Mass/Vol] 17 mg/dL Normal 7-21 [facility] Comment on above: Order Comment: Speci men Type: BLOOD SPECIMENOrdering Facility: [facility] Address: [address] [place] [address] Performed By: #### 1 9123-9, 61661-7, 3084-1, 2777-1 ####[facility] LABCLIA [id number] [place] [address] [place] Fibrinogen PPP-mCncon 2023 Fibrinogen Coag (PPP) [Mass/Vol] 498 mg/dL High 200-400 [facility] Comment on above: Order Comment: Speci men Type: BLOOD SPECIMENOrdering Facility: [facility] Address: [address] [place] [address] Result Comment: [facility]hum[facility].Result rechecked. Performed By: #### 3 4528-0, 3255-7 ####[facility] LABCLIA [id number] [place] [address] [place] Fibrinogen Coag (PPP) [Mass/Vol] 409 mg/dL High 200-400 [facility] Comment on above: Order Comment: Speci men Type: BLOOD SPECIMENOrdering Facility: [facility] Address: [address] [place] [address] Performed By: #### 3 255-7, 51361-2 ####[facility] LABCLIA [id number] [place] [address] [place] Magnesium SerPl-mCncon 10-03 Magnesium [Mass/Vol] 2.2 mg/dL Normal 1.7-2.3 [facility] Comment on above: Order Comment: Jeremie gomez Type: BLOOD SPECIMENOrdering Facility: [facility] Address: [address] [place] [address] Performed By: #### 3 084-1, 75620-5, 2777-1, 53374-9 ####[facility] LABCLIA [id number] [place] [address] [place] Magnesium [Mass/Vol] 2.2 mg/dL Normal 1.7-2.3 [facility] Comment on above: Order Comment: Jeremie gomez Type: BLOOD SPECIMENOrdering Facility: [facility] Address: [address] [place] [address] Performed By: #### 1 9123-9, 70535-6, 3084-1, 2777-1 ####[facility] LABCLIA [id number] [address] [place] PT panel Coag (PPP)on 2023 INR Coag (PPP) [Relative time] 1.2 {INR} Normal 0.9-1.3 [facility] Comment on above: Order Comment: Jeremie gomez Type: BLOOD SPECIMENOrdering Facility: [facility] Address: [address] [place] [address] Result Comment: Dorene min K Antagonist (VKA) Therapeutic Range: INR 2 to 3 (Target INR of 2.5)Note: For patients treated with VKA drugs, such as warfarin, the [place] [employer] 2012 Guideline recommends a therapeutic INR range of 2 to 3 (target INR of 2.5). This recommendation includes high-risk patients with antiphospholipid syndrome with previous arterial or venous thromboembolism, current-generation mechanical or bioprosthetic aortic heart valve replacement.Note: Patients with mechanical aortic valve replacement and additional risk factors for thromboembolic events (atrial fibrillation, previous thromboembolism, LV dysfunction, hypercoagulable conditions) or an older generation mechanical AVR (i.e., ball in-Cage) or any mechanical MVR should have a INR therapeutic range of 2.5 to 3.5 (target INR of 3).Dayan HILLIARD, et al. Chest 2012, 141:7S-47SNishkoffi POLK, et al. [facility] 2017, 70: 252-289 Performed By: #### 3 4528-0, 3255-7 ####[facility] LABCLIA [id number] [place] [address] [place] PT Coag (PPP) [Time] 13.1 s High 9.7-13.0 [facility] Comment on above: Order Comment: Speci men Type: BLOOD SPECIMENOrdering Facility: [facility] Address: [address] [place] [address] Performed By: #### 3 4528-0, 3255-7 ####[facility] LABCLIA [id number] [address] [place] INR Coag (PPP) [Relative time] 1.2 {INR} Normal 0.9-1.3 [facility] Comment on above: Order Comment: Speci men Type: BLOOD SPECIMENOrdering Facility: [facility] Address: [address] [place] [address] Result Comment: Dorene min K Antagonist (VKA) Therapeutic Range: INR 2 to 3 (Target INR of 2.5)Note: For patients treated with VKA drugs, such as warfarin, the [place] [employer] 2012 Guideline recommends a therapeutic INR range of 2 to 3 (target INR of 2.5). This recommendation includes high-risk patients with antiphospholipid syndrome with previous arterial or venous thromboembolism, current-generation mechanical or bioprosthetic aortic heart valve replacement.Note: Patients with mechanical aortic valve replacement and additional risk factors for thromboembolic events (atrial fibrillation, previous thromboembolism, LV dysfunction, hypercoagulable conditions) or an older generation mechanical AVR (i.e., ball in-Cage) or any mechanical MVR should have a INR therapeutic range of 2.5 to 3.5 (target INR of 3).dariela Jiang. Chest 2012, 141:7S-47SMarla POLK, et al. [facility] 2017, 70: 252-289 Performed By: #### 3 255-7, 95762-0 ####[facility] LABCLIA [id number] [address] [address] [place] PT Coag (PPP) [Time] 12.8 s Normal 9.7-13.0 [facility] Comment on above: Order Comment: Speci men Type: BLOOD SPECIMENOrdering Facility: [facility] Address: [address] [place] [address] Performed By: #### 3 255-7, 01931-1 ####[facility] LABIA [id number] [place] [address] [place] Phosphate SerPl-mCncon 10-03 Phosphate [Mass/Vol] 4.3 mg/dL Normal 2.7-4.8 [facility] Comment on above: Order Comment: Speci men Type: BLOOD SPECIMENOrdering Facility: [facility] Address: [address] [place] [address] Performed By: #### 3 084-1, 13140-9, 2777-1, 96544-0 ####[facility] [id number] [place] [address] [place] Phosphate [Mass/Vol] 3.9 mg/dL Normal 2.7-4.8 [facility] Comment on above: Order Comment: Speci men Type: BLOOD SPECIMENOrdering Facility: [facility] Address: [address] [place], [place] [address] Performed By: #### 2 4323-8, 2777-1, 3084-1 ####[facility] LABIA [id number] [address] [address] [place] Phosphate [Mass/Vol] 4.0 mg/dL Normal 2.7-4.8 [facility] Comment on above: Order Comment: Speci men Type: BLOOD SPECIMENOrdering Facility: [facility] Address: [address] [place] [address] Performed By: #### 1 9123-9, 83253-6, 3084-1, 277- ####[facility] LABCLIA [id number] [place] [address] [place] US LEG VEIN DVT [facility] LABo n 10-03-2024 US LEG VEIN [facility] Normal [facility] Urate SerPl-mCncon Urate [Mass/Vol] 3.4 mg/dL Normal 2.5-6.6 [facility] Comment on above: Order Comment: Speci men Type: BLOOD SPECIMENOrdering Facility: [facility] Address: [address] [place] [address] Performed By: #### 3 084-1, 17288-3, 2777-1, 05670-2 ####[facility] LABIA [id number] [place] [address] [place] Urate [Mass/Vol] 2.8 mg/dL Normal 2.5-6.6 [facility] Comment on above: Order Comment: Speci men Type: BLOOD SPECIMENOrdering Facility: [facility] Address: [address] [place] [address] Performed By: #### 2 4323-8, 2777-, 3083- ####[facility] LABIA [id number] [place] [address] [place] Urate [Mass/Vol] 3.5 mg/dL Normal 2.5-6.6 [facility] Comment on above: Order Comment: Speci men Type: BLOOD SPECIMENOrdering Facility: [facility] Address: [address] [place] [address] Performed By: #### 1 9123-9, 76428-9, 308-1, 277- ####[facility] LABCLIA [id number] [place] [address] [place] CBC W Auto Differential pane l (Bld)on 10-02-2024 Basophils (Bld) [#/Vol] 10*3/uL Normal <0.11 [facility] Comment on above: Order Comment: Speci men Type: BLOOD SPECIMENOrdering Facility: [facility] Address: [address] [place] [address] Performed By: #### 5 7021-8 ####[facility] LABCLIA [id number] [place] [address] [place] Basophils/100 WBC (Bld) 0.2 % Normal [facility] Comment on above: Order Comment: Speci men Type: BLOOD SPECIMENOrdering Facility: [facility] Address: [address] [place] [address] Performed By: #### 5 7021-8 ####[facility] LABCLIA [id number] [place] [address] [place] Differential cell count method Nom (Bld) Auto Normal [facility] Comment on above: Order Comment: Speci men Type: BLOOD SPECIMENOrdering Facility: [facility] Address: [address] [place] [address] Performed By: #### 5 7021-8 ####[facility] LABCLIA [id number] [place] [address] [place] Eosinophils (Bld) [#/Vol] 10*3/uL Normal <0.46 [facility] Comment on above: Order Comment: Speci men Type: BLOOD SPECIMENOrdering Facility: [facility] Address: [address] [place] [address] Performed By: #### 5 7021-8 ####[facility] LABCLIA [id number] [place] [address] [place] Eosinophils/100 WBC (Bld) 0.0 % Normal [facility] Comment on above: Order Comment: Speci men Type: BLOOD SPECIMENOrdering Facility: [facility] Address: [address] [place] [address] Performed By: #### 5 7021-8 ####[facility] LABCLIA [id number] [place] [address] [place] Erythrocyte distribution width (RBC) [Ratio] 19.6 % High 11.5-15.0 [facility] Comment on above: Order Comment: Speci men Type: BLOOD SPECIMENOrdering Facility: [facility] Address: [address] [place] [address] Performed By: #### 5 7021-8 ####[facility] LABCLIA [id number] [place] [address] [place] Hematocrit (Bld) [Volume fraction] 35.6 % Low 36.0-46.0 [facility] Comment on above: Order Comment: Speci men Type: BLOOD SPECIMENOrdering Facility: [facility] Address: [address] [place] [address] Performed By: #### 5 7021-8 ####[facility] LABIA [id number] [place] [address] [place] Hemoglobin (Bld) [Mass/Vol] 10.5 g/dL Low 11.5-15.5 [facility] Comment on above: Order Comment: Speci men Type: BLOOD SPECIMENOrdering Facility: [facility] Address: [address] [place] [address] Performed By: #### 5 7021-8 ####[facility] LABIA [id number] [place] [address] [place] Immature granulocytes (Bld) [#/Vol] 0.17 10*3/uL High <0.10 [facility] Comment on above: Order Comment: Speci men Type: BLOOD SPECIMENOrdering Facility: [facility] Address: [address] [place] [address] Performed By: #### 5 7021-8 ####[facility] LABCLIA [id number] [place] [address] [place] Immature granulocytes/100 WBC (Bld) 1.3 % Normal [facility] Comment on above: Order Comment: Speci men Type: BLOOD SPECIMENOrdering Facility: [facility] Address: [address] [place] [address] Performed By: #### 5 7021-8 ####[facility] LABCLIA [id number] [place] [address] [place] Lymphocytes (Bld) [#/Vol] 0.19 10*3/uL Low 1.00-4.00 [facility] Comment on above: Order Comment: Speci men Type: BLOOD SPECIMENOrdering Facility: [facility] Address: [address] [place] [address] Performed By: #### 5 7021-8 ####[facility] LABCLIA [id number] [place] [address] [place] Lymphocytes/100 WBC (Bld) 1.5 % Normal [facility] Comment on above: Order Comment: Speci men Type: BLOOD SPECIMENOrdering Facility: [facility] Address: [address] [place] [address] Performed By: #### 5 7021-8 ####[facility] LABCLIA [id number] [place] [address] [place] MCH (RBC) [Entitic mass] 23.4 pg Low 26.0-34.0 [facility] Comment on above: Order Comment: Speci men Type: BLOOD SPECIMENOrdering Facility: [facility] Address: [address] [place] [address] Performed By: #### 5 7021-8 ####[facility] LABCLIA [id number] [place] [address] [place] MCHC (RBC) [Mass/Vol] 29.5 g/dL Low 30.5-36.0 [facility] Comment on above: Order Comment: Speci men Type: BLOOD SPECIMENOrdering Facility: [facility] Address: [address] [place] [address] Performed By: #### 5 7021-8 ####[facility] LABIA [id number] [place] [address] [place] MCV (RBC) [Entitic vol] 79.5 fL Low 80.0-100.0 [facility] Comment on above: Order Comment: Speci men Type: BLOOD SPECIMENOrdering Facility: [facility] Address: [address] [place] [address] Performed By: #### 5 7021-8 ####[facility] LABIA [id number] [place] [address] [place] Monocytes (Bld) [#/Vol] 0.86 10*3/uL Normal <0.87 [facility] Comment on above: Order Comment: Speci men Type: BLOOD SPECIMENOrdering Facility: [facility] Address: [address] [place] [address] Performed By: #### 5 7021-8 ####[facility] LABIA [id number] [place] [address] [place] Monocytes/100 WBC (Bld) 6.6 % Normal [facility] Comment on above: Order Comment: Speci men Type: BLOOD SPECIMENOrdering Facility: [facility] Address: [address] [place] [address] Performed By: #### 5 7021-8 ####[facility] LABIA [id number] [place] [address] [place] Neutrophils (Bld) [#/Vol] 11.80 10*3/uL High 1.45-7.50 [facility] Comment on above: Order Comment: Speci men Type: BLOOD SPECIMENOrdering Facility: [facility] Address: [address] [place] [address] Performed By: #### 5 7021-8 ####[facility] LABIA [id number] [place] [address] [place] Neutrophils/100 WBC (Bld) 90.4 % Normal [facility] Comment on above: Order Comment: Speci men Type: BLOOD SPECIMENOrdering Facility: [facility] Address: [address] [place] [address] Performed By: #### 5 7021-8 ####[facility] LABIA [id number] [place] [address] [place] Nucleated RBC (Bld) [#/Vol] 0.09 10*3/uL High <0.01 [facility] Comment on above: Order Comment: Speci men Type: BLOOD SPECIMENOrdering Facility: [facility] Address: [address] [place] [address] Performed By: #### 5 7021-8 ####[facility] LABIA [id number] [place] [address] [place] Nucleated RBC/100 WBC (Bld) [Ratio] 0.7 /100 WBC Normal [facility] Comment on above: Order Comment: Speci men Type: BLOOD SPECIMENOrdering Facility: [facility] Address: [address] [place] [address] Performed By: #### 5 7021-8 ####[facility] LABIA [id number] [place] [address] [place] Platelet mean volume (Bld) [Entitic vol] 10.3 fL Normal 9.0-12.7 [facility] Comment on above: Order Comment: Speci men Type: BLOOD SPECIMENOrdering Facility: [facility] Address: [address] [place] [address] Performed By: #### 5 7021-8 ####[facility] LABIA [id number] [place] [address] [place] Platelets (Bld) [#/Vol] 294 10*3/uL Normal 150-400 [facility] Comment on above: Order Comment: Speci men Type: BLOOD SPECIMENOrdering Facility: [facility] Address: [address] [place] [address] Performed By: #### 5 7021-8 ####[facility] LABCLIA [id number] [place] [address] [place] RBC (Bld) [#/Vol] 4.48 10*6/uL Normal 3.90-5.20 [facility] Comment on above: Order Comment: Speci men Type: BLOOD SPECIMENOrdering Facility: [facility] Address: [address] [place] [address] Performed By: #### 5 7021-8 ####[facility] LABCLIA [id number] [place] [address] [place] WBC (Bld) [#/Vol] 13.04 10*3/uL High 3.70-11.00 [facility] Comment on above: Order Comment: Speci men Type: BLOOD SPECIMENOrdering Facility: [facility] Address: [address] [place] [address] Performed By: #### 5 7021-8 ####[facility] LABCLIA [id number] [place] [address] [place] CONSULT PROGon 10-02-2024 CONSULT PROG Normal [facility] CT BRAIN WO IVCONon 10-02-[address] BRAIN WO IVCON Normal [facility] Comprehensive metabolic 2000 panelon 10-02-2024 Albumin [Mass/Vol] 3.2 g/dL Low 3.9-4.9 [facility] Comment on above: Order Comment: Speci men Type: BLOOD SPECIMENOrdering Facility: [facility] Address: [address] [place] [address] Performed By: #### 2 777-1, 71432-0, 3084-1 ####[facility] LABCLIA [id number] [place] [address] [place] ALP [Catalytic activity/Vol] 128 U/L High 34-123 [facility] Comment on above: Order Comment: Speci men Type: BLOOD SPECIMENOrdering Facility: [facility] Address: [address] [id number] Performed By: #### 2 777-1, 49554-1, 3083-10 ####[facility] LABCLIA [id number] [place] [address] [place] ALT [Catalytic activity/Vol] 58 U/L High 7-38 [facility] Comment on above: Order Comment: Speci men Type: BLOOD SPECIMENOrdering Facility: [facility] Address: [address] [place] [address] Performed By: #### 2 777-1, 46418-1, 3083-10 ####[facility] LABCLIA [id number] [place] [address] [place] Anion gap [Moles/Vol] 9 mmol/L Normal 8-15 [facility] Comment on above: Order Comment: Speci men Type: BLOOD SPECIMENOrdering Facility: [facility] Address: [address] [place] [address] Performed By: #### 2 777-1, 97927-4, 3083-10 ####[facility] LABIA [id number] [address] [place] AST [Catalytic activity/Vol] 28 U/L Normal 13-35 [facility] Comment on above: Order Comment: Speci men Type: BLOOD SPECIMENOrdering Facility: [facility] Address: [address] [place], [place] [address] Performed By: #### 2 777-1, 69110-7, 3083-10 ####[facility] LABIA [id number] [place] [address] [place] Bilirubin [Mass/Vol] 0.8 mg/dL Normal 0.2-1.3 [facility] Comment on above: Order Comment: Speci men Type: BLOOD SPECIMENOrdering Facility: [facility] Address: [address] [place], [place] [address] Performed By: #### 2 777-1, 41506-4, 3083-10 ####[facility] LABCLIA [id number] [address] [address] [place] Calcium [Mass/Vol] 8.6 mg/dL Normal 8.5-10.2 [facility] Comment on above: Order Comment: Speci men Type: BLOOD SPECIMENOrdering Facility: [facility] Address: [address] [place] [address] Performed By: #### 2 777-1, 42950-0, 3083-10 ####[facility] LABIA [id number] [place] [address] [place] Chloride [Moles/Vol] 103 mmol/L Normal 98-107 [facility] Comment on above: Order Comment: Speci men Type: BLOOD SPECIMENOrdering Facility: [facility] Address: [address] [place] [address] Performed By: #### 2 777-1, , 3083-10 ####[facility] LABIA [id number] [place] [address] [place] CO2 [Moles/Vol] 28 mmol/L Normal 22-30 [facility] Comment on above: Order Comment: Speci men Type: BLOOD SPECIMENOrdering Facility: [facility] Address: [facility] [place] [address] Performed By: #### 2 777-1, , 3083-10 ####[facility] LABIA [id number] [place] [address] [place] Creatinine [Mass/Vol] 0.45 mg/dL Low 0.58-0.96 [facility] Comment on above: Order Comment: Speci men Type: BLOOD SPECIMENOrdering Facility: [facility] Address: [address] [place] [address] Performed By: #### 2 777-1, 11929-6, 3083-10 ####[facility] LABIA [id number] [place] [address] [place] Creatinine and Glomerular filtration rate.predicted panel (S/P/Bld) 126 mL/min/1.73m??? Normal >=60 [facility] Comment on above: Order Comment: Jeremie gomez Type: BLOOD SPECIMENOrdering Facility: [facility] Address: [address] [place] [address] Result Comment: Adina mated Glomerular Filtration Rate (eGFR) is calculated using the 2020 CKD-EPI creatinine equation. This equation utilizes serum creatinine, sex, and age as parameters. The creatinine assay has traceable calibration to isotope dilution-mass spectrometry. Refer to KDIGO guidelines for clinical interpretation. In patients with unstable renal function, e.g. those with acute kidney injury, the eGFR may not accurately reflect actual GFR. Performed By: #### 2 777-1, , 3083-10 ####[facility] LABIA [id number] [place] [address] [place] Glucose [Mass/Vol] 105 mg/dL High 74-99 [facility] Comment on above: Order Comment: Jeremie gomez Type: BLOOD SPECIMENOrdering Facility: [facility] Address: [address] [place] [address] Result Comment: The [place] [employer] (ADA) provides guidance for cutoff values for fasting glucose and random glucose. The ADA defines fasting as no caloric intake for at least 8 hours. Fasting plasma glucose results between 100 to 125 mg/dL indicate increased risk for diabetes (prediabetes).Fasting plasma glucose results greater than or equal to 126 mg/dL meet the criteria for diagnosis of diabetes. In the absence of unequivocal hyperglycemia, results should be confirmed by repeat testing. In a patient with classic symptoms of hyperglycemia or hyperglycemic crisis, random plasma glucose results greater than or equal to 200 mg/dL meet the criteria for diagnosis of diabetes.Reference: Standards of Medical Care in Diabetes 2016, [place] [employer]. Diabetes Care. 2016.39(Suppl 1). Performed By: #### 2 777-1, 14907-8, 3083-10 ####[facility] LABCLIA [id number] [address] [address] [place] Potassium [Moles/Vol] 4.3 mmol/L Normal 3.7-5.1 [facility] Comment on above: Order Comment: Speci men Type: BLOOD SPECIMENOrdering Facility: [facility] Address: [address] [place] [address] Performed By: #### 2 777-1, , 3083-10 ####[facility] LABCLIA [id number] [address] [address] [place] Protein [Mass/Vol] 5.7 g/dL Low 6.3-8.0 [facility] Comment on above: Order Comment: Speci men Type: BLOOD SPECIMENOrdering Facility: [facility] Address: [address] [place], [place] [address] Performed By: #### 2 777-1, , 3083-10 ####[facility] LABIA [id number] [address] [address] [place] Sodium [Moles/Vol] 140 mmol/L Normal 136-144 [facility] Comment on above: Order Comment: Speci men Type: BLOOD SPECIMENOrdering Facility: [facility] Address: [address] [place] [address] Performed By: #### 2 777-1, , 3083-10 ####[facility] LABCLIA [id number] [address] [address] [place] Urea nitrogen [Mass/Vol] 18 mg/dL Normal 7-21 [facility] Comment on above: Order Comment: Speci men Type: BLOOD SPECIMENOrdering Facility: [facility] Address: [address] [place] [address] Performed By: #### 2 777-1, , 3083-10 ####[facility] LABCLIA [id number] [place] [address] [place] Albumin [Mass/Vol] 3.5 g/dL Low 3.9-4.9 [facility] Comment on above: Order Comment: Speci men Type: BLOOD SPECIMENOrdering Facility: [facility] Address: [address] [place] [address] Performed By: #### 1 9123-9, 2777-1, 308-1, 57502-0 ####[facility] LABCLIA [id number] [place] [address] [place] ALP [Catalytic activity/Vol] 145 U/L High 34-123 [facility] Comment on above: Order Comment: Speci men Type: BLOOD SPECIMENOrdering Facility: [facility] Address: [address] [place] [address] Performed By: #### 1 9123-9, 2777-1, 3083-, 22307-0 ####[facility] LABCLIA [id number] [place] [address] [place] ALT [Catalytic activity/Vol] 62 U/L High 7-38 [facility] Comment on above: Order Comment: Speci men Type: BLOOD SPECIMENOrdering Facility: [facility] Address: [address] [place] [address] Performed By: #### 1 9123-9, 2777-1, 308-, 65560-3 ####[facility] LABCLIA [id number] [place] [address] [place] Anion gap [Moles/Vol] 11 mmol/L Normal 8-15 [facility] Comment on above: Order Comment: Speci men Type: BLOOD SPECIMENOrdering Facility: [facility] Address: [address] [place] [address] Performed By: #### 1 9123-9, 2777-1, 3084-1, 27844-8 ####[facility] LABCLIA [id number] [place] [address] [place] AST [Catalytic activity/Vol] 28 U/L Normal 13-35 [facility] Comment on above: Order Comment: Speci men Type: BLOOD SPECIMENOrdering Facility: [facility] Address: [address] [place] [address] Performed By: #### 1 9123-9, 2777-1, 3084-1, 52530-9 ####[facility] LABCLIA [id number] [place] [address] [place] Bilirubin [Mass/Vol] 0.7 mg/dL Normal 0.2-1.3 [facility] Comment on above: Order Comment: Speci men Type: BLOOD SPECIMENOrdering Facility: [facility] Address: [address] [place] [address] Performed By: #### 1 9123-9, 2777-1, 308-, 89650-7 ####[facility] LABCLIA [id number] [place] [address] [place] Calcium [Mass/Vol] 9.1 mg/dL Normal 8.5-10.2 [facility] Comment on above: Order Comment: Speci men Type: BLOOD SPECIMENOrdering Facility: [facility] Address: [address] [place] [address] Performed By: #### 1 9123-9, 2777-1, 308-1, 37649-1 ####[facility] LABCLIA [id number] [place] [address] [place] Chloride [Moles/Vol] 103 mmol/L Normal 98-107 [facility] Comment on above: Order Comment: Speci men Type: BLOOD SPECIMENOrdering Facility: [facility] Address: [address] [place] [address] Performed By: #### 1 9123-9, 2777-1, 3084-1, 68107-7 ####[facility] LABCLIA [id number] [place] [address] [place] CO2 [Moles/Vol] 27 mmol/L Normal 22-30 [facility] Comment on above: Order Comment: Speci men Type: BLOOD SPECIMENOrdering Facility: [facility] Address: [address] [place] [address] Performed By: #### 1 9123-9, 2777-1, 3084-, 12395-0 ####[facility] LABCLIA [id number] [place] [address] [place] Creatinine [Mass/Vol] 0.48 mg/dL Low 0.58-0.96 [facility] Comment on above: Order Comment: Speci men Type: BLOOD SPECIMENOrdering Facility: [facility] Address: [address] [place] [address] Performed By: #### 1 9123-9, 2777-1, 308-, 52656-1 ####[facility] LABIA [id number] [place] [address] [place] Creatinine and Glomerular filtration rate.predicted panel (S/P/Bld) 124 mL/min/1.73m??? Normal >=60 [facility] Comment on above: Order Comment: Pingi patricia Type: BLOOD SPECIMENOrdering Facility: [facility] Address: [address] [place] [address] Result Comment: Adina mated Glomerular Filtration Rate (eGFR) is calculated using the 2020 CKD-EPI creatinine equation. This equation utilizes serum creatinine, sex, and age as parameters. The creatinine assay has traceable calibration to isotope dilution-mass spectrometry. Refer to KDIGO guidelines for clinical interpretation. In patients with unstable renal function, e.g. those with acute kidney injury, the eGFR may not accurately reflect actual GFR. Performed By: #### 1 9123-9, 2777-1, 3084-1, 72400-6 ####[facility] LABCLIA [id number] [place] [address] [place] Glucose [Mass/Vol] 143 mg/dL High 74-99 [facility] Comment on above: Order Comment: Pingi patricia Type: BLOOD SPECIMENOrdering Facility: [facility] Address: [address] [place] [address] Result Comment: The [place] [employer] (ADA) provides guidance for cutoff values for fasting glucose and random glucose. The ADA defines fasting as no caloric intake for at least 8 hours. Fasting plasma glucose results between 100 to 125 mg/dL indicate increased risk for diabetes (prediabetes).Fasting plasma glucose results greater than or equal to 126 mg/dL meet the criteria for diagnosis of diabetes. In the absence of unequivocal hyperglycemia, results should be confirmed by repeat testing. In a patient with classic symptoms of hyperglycemia or hyperglycemic crisis, random plasma glucose results greater than or equal to 200 mg/dL meet the criteria for diagnosis of diabetes.Reference: Standards of Medical Care in Diabetes 2016, [place] [employer]. Diabetes Care. 2016.39(Suppl 1). Performed By: #### 1 9123-9, 2777-1, 308-, 83087-6 ####[facility] LABCLIA [id number] [place] [address] [place] Potassium [Moles/Vol] 4.7 mmol/L Normal 3.7-5.1 [facility] Comment on above: Order Comment: Jeremie gomez Type: BLOOD SPECIMENOrdering Facility: [facility] Address: [address] [place] [address] Performed By: #### 1 9123-9, 2777-1, 308-, 38439-5 ####[facility] LABCLIA [id number] [place] [address] [place] Protein [Mass/Vol] 6.1 g/dL Low 6.3-8.0 [facility] Comment on above: Order Comment: Jeremie gomez Type: BLOOD SPECIMENOrdering Facility: [facility] Address: [address] [place] [address] Performed By: #### 1 9123-9, 2777-1, 3084-, 56237-8 ####[facility] LABCLIA [id number] [place] [address] [place] Sodium [Moles/Vol] 141 mmol/L Normal 136-144 [facility] Comment on above: Order Comment: Speci men Type: BLOOD SPECIMENOrdering Facility: [facility] Address: [address] [place] [address] Performed By: #### 1 9123-9, 2777-1, 3084-1, 72892-7 ####[facility] LABCLIA [id number] [place] [address] [place] Urea nitrogen [Mass/Vol] 20 mg/dL Normal 7-21 [facility] Comment on above: Order Comment: Speci men Type: BLOOD SPECIMENOrdering Facility: [facility] Address: [address] [place] [address] Performed By: #### 1 9123-9, 2777-1, 308-1, 22584-7 ####[facility] LABCLIA [id number] [place] [address] [place] Fibrinogen PPP-mCncon 2023 Fibrinogen Coag (PPP) [Mass/Vol] 394 mg/dL Normal 200-400 [facility] Comment on above: Order Comment: Speci men Type: BLOOD SPECIMENOrdering Facility: [facility] Address: [address] [place] [address] Performed By: #### 3 255-7, 52029-5 ####[facility] LABCLIA [id number] [place] [address] [place] Magnesium SerPl-mCncon 10-02 Magnesium [Mass/Vol] 2.5 mg/dL High 1.7-2.3 [facility] Comment on above: Order Comment: Speci men Type: BLOOD SPECIMENOrdering Facility: [facility] Address: [address] [place] [address] Performed By: #### 1 9123-9, 2777-1, 3084-1, 27456-0 ####[facility] LABCLIA [id number] [place] [address] [place] PT panel Coag (PPP)on 2023 INR Coag (PPP) [Relative time] 1.2 {INR} Normal 0.9-1.3 [facility] Comment on above: Order Comment: Speci patricia Type: BLOOD SPECIMENOrdering Facility: [facility] Address: [address] [place] [address] Result Comment: Dorene min K Antagonist (VKA) Therapeutic Range: INR 2 to 3 (Target INR of 2.5)Note: For patients treated with VKA drugs, such as warfarin, the [place] [employer] 2012 Guideline recommends a therapeutic INR range of 2 to 3 (target INR of 2.5). This recommendation includes high-risk patients with antiphospholipid syndrome with previous arterial or venous thromboembolism, current-generation mechanical or bioprosthetic aortic heart valve replacement.Note: Patients with mechanical aortic valve replacement and additional risk factors for thromboembolic events (atrial fibrillation, previous thromboembolism, LV dysfunction, hypercoagulable conditions) or an older generation mechanical AVR (i.e., ball in-Cage) or any mechanical MVR should have a INR therapeutic range of 2.5 to 3.5 (target INR of 3).Dayan GH, et al. Chest 2012, 141:7S-47SNishimemeterio RA, et al. [facility] 2017, 70: 252-289 Performed By: #### 3 255-7, 42634-9 ####[facility] LABCLIA [id number] [place] [address] [place] PT Coag (PPP) [Time] 13.0 s Normal 9.7-13.0 [facility] Comment on above: Order Comment: Jeremie gomez Type: BLOOD SPECIMENOrdering Facility: [facility] Address: [address] [place] [address] Performed By: #### 3 255-7, 69891-2 ####[facility] LABCLIA [id number] [place] [address] [place] Phosphate SerPl-mCncon 10-02 Phosphate [Mass/Vol] 4.0 mg/dL Normal 2.7-4.8 [facility] Comment on above: Order Comment: Speci men Type: BLOOD SPECIMENOrdering Facility: [facility] Address: [address] [place] [address] Performed By: #### 2 777-1, 81747-9, 308-1 ####[facility] LABCLIA [id number] [place] [address] [place] Phosphate [Mass/Vol] 4.8 mg/dL Normal 2.7-4.8 [facility] Comment on above: Order Comment: Speci men Type: BLOOD SPECIMENOrdering Facility: [facility] Address: [address] [place] [address] Performed By: #### 1 9123-9, 2777-1, 308-, 74453-6 ####[facility] LABCLIA [id number] [place] [address] [place] Urate SerPl-ncon Urate [Mass/Vol] 3.2 mg/dL Normal 2.5-6.6 [facility] Comment on above: Order Comment: Speci men Type: BLOOD SPECIMENOrdering Facility: [facility] Address: [address] [place] [address] Performed By: #### 2 777-1, 31951-1, 3083-1 ####[facility] LABCLIA [id number] [place] [address] [place] Urate [Mass/Vol] 3.8 mg/dL Normal 2.5-6.6 [facility] Comment on above: Order Comment: Speci men Type: BLOOD SPECIMENOrdering Facility: [facility] Address: [address] [place] [address] Performed By: #### 1 9123-9, 2777-1, 308-1, 22741-0 ####[facility] LABCLIA [id number] [place] [address] [place] CASE MANAGEMon 10-01-2024 CASE MANAGEM Normal [facility] CNOVon 10-01-2024 CNOV Normal [facility] Comprehensive metabolic 2000 panelon 10-01-2024 Albumin [Mass/Vol] 3.5 g/dL Low 3.9-4.9 [facility] Comment on above: Order Comment: Speci men Type: BLOOD SPECIMENOrdering Facility: [facility] Address: [address] [place] [address] Performed By: #### 3 084-1, 75569-6, 2776-10 ####[facility] LABIA [id number] [place] [address] [place] ALP [Catalytic activity/Vol] 162 U/L High 34-123 [facility] Comment on above: Order Comment: Speci men Type: BLOOD SPECIMENOrdering Facility: [facility] Address: [address] [place] [address] Performed By: #### 3 084-1, 41434-2, 2776-10 ####[facility] LABIA [id number] [place] [address] [place] ALT [Catalytic activity/Vol] 60 U/L High 7-38 [facility] Comment on above: Order Comment: Speci men Type: BLOOD SPECIMENOrdering Facility: [facility] Address: [address] [place] [address] Performed By: #### 3 084-1, 94658-5, 2776-10 ####[facility] LABIA [id number] [place] [address] [place] Anion gap [Moles/Vol] 8 mmol/L Normal 8-15 [facility] Comment on above: Order Comment: Speci men Type: BLOOD SPECIMENOrdering Facility: [facility] Address: [address] [place] [address] Performed By: #### 3 084-1, 35410-2, 2776-10 ####[facility] LABCLIA [id number] [place] [address] [place] AST [Catalytic activity/Vol] 28 U/L Normal 13-35 [facility] Comment on above: Order Comment: Speci men Type: BLOOD SPECIMENOrdering Facility: [facility] Address: [address] [place] [address] Performed By: #### 3 084-1, , 2776-10 ####[facility] LABIA [id number] [place] [address] [place] Bilirubin [Mass/Vol] 0.8 mg/dL Normal 0.2-1.3 [facility] Comment on above: Order Comment: Speci men Type: BLOOD SPECIMENOrdering Facility: [facility] Address: [address] [place] [address] Performed By: #### 3 084-1, , 2776-10 ####[facility] [id number] [place] [address] [place] Calcium [Mass/Vol] 9.0 mg/dL Normal 8.5-10.2 [facility] Comment on above: Order Comment: Speci men Type: BLOOD SPECIMENOrdering Facility: [facility] Address: [address] [place] [address] Performed By: #### 3 084-1, , 2776-10 ####[facility] LABIA [id number] [place] [address] [place] Chloride [Moles/Vol] 103 mmol/L Normal 98-107 [facility] Comment on above: Order Comment: Speci men Type: BLOOD SPECIMENOrdering Facility: [facility] Address: [address] [place] [address] Performed By: #### 3 084-1, 47480-0, 2776-10 ####[facility] LABIA [id number] [place] [address] [place] CO2 [Moles/Vol] 30 mmol/L Normal 22-30 [facility] Comment on above: Order Comment: Speci men Type: BLOOD SPECIMENOrdering Facility: [facility] Address: [address] [place] [address] Performed By: #### 3 084-1, , 2776-10 ####[facility] LABIA [id number] [place] [address] [place] Creatinine [Mass/Vol] 0.45 mg/dL Low 0.58-0.96 [facility] Comment on above: Order Comment: Speci men Type: BLOOD SPECIMENOrdering Facility: [facility] Address: [address] [place] [address] Performed By: #### 3 084-1, , 2776-10 ####[facility] [id number] [place] [address] [place] Creatinine and Glomerular filtration rate.predicted panel (S/P/Bld) 126 mL/min/1.73m??? Normal >=60 [facility] Comment on above: Order Comment: Speci men Type: BLOOD SPECIMENOrdering Facility: [facility] Address: [address] [place] [address] Result Comment: Adina mated Glomerular Filtration Rate (eGFR) is calculated using the 2020 CKD-EPI creatinine equation. This equation utilizes serum creatinine, sex, and age as parameters. The creatinine assay has traceable calibration to isotope dilution-mass spectrometry. Refer to KDIGO guidelines for clinical interpretation. In patients with unstable renal function, e.g. those with acute kidney injury, the eGFR may not accurately reflect actual GFR. Performed By: #### 3 084-1, 42166-5, 2776-10 ####[facility] LABIA [id number] [place] [address] [place] Glucose [Mass/Vol] 154 mg/dL High 74-99 [facility] Comment on above: Order Comment: Speci men Type: BLOOD SPECIMENOrdering Facility: [facility] Address: [address] [place] [address] Result Comment: The [place] [employer] (ADA) provides guidance for cutoff values for fasting glucose and random glucose. The ADA defines fasting as no caloric intake for at least 8 hours. Fasting plasma glucose results between 100 to 125 mg/dL indicate increased risk for diabetes (prediabetes).Fasting plasma glucose results greater than or equal to 126 mg/dL meet the criteria for diagnosis of diabetes. In the absence of unequivocal hyperglycemia, results should be confirmed by repeat testing. In a patient with classic symptoms of hyperglycemia or hyperglycemic crisis, random plasma glucose results greater than or equal to 200 mg/dL meet the criteria for diagnosis of diabetes.Reference: Standards of Medical Care in Diabetes 2016, [place] [employer]. Diabetes Care. 2016.39(Suppl 1). Performed By: #### 3 084-1, 86884-6, 277- ####[facility] LABCLIA [id number] [place] [address] [place] Potassium [Moles/Vol] 4.3 mmol/L Normal 3.7-5.1 [facility] Comment on above: Order Comment: Jeremie gomez Type: BLOOD SPECIMENOrdering Facility: [facility] Address: [address] [place] [address] Performed By: #### 3 084-1, 16950-3, 277- ####[facility] LABCLIA [id number] [place] [address] [place] Protein [Mass/Vol] 6.1 g/dL Low 6.3-8.0 [facility] Comment on above: Order Comment: Jeremie gomez Type: BLOOD SPECIMENOrdering Facility: [facility] Address: [address] [place] [address] Performed By: #### 3 084-1, 49159-8, 277- ####[facility] LABCLIA [id number] [place] [address] [place] Sodium [Moles/Vol] 141 mmol/L Normal 136-144 [facility] Comment on above: Order Comment: Speci men Type: BLOOD SPECIMENOrdering Facility: [facility] Address: [address] [place] [address] Performed By: #### 3 084-1, 41112-1, 2777- ####[facility] LABCLIA [id number] [place] [address] [place] Urea nitrogen [Mass/Vol] 17 mg/dL Normal 7-21 [facility] Comment on above: Order Comment: Speci men Type: BLOOD SPECIMENOrdering Facility: [facility] Address: [address] [place] [address] Performed By: #### 3 084-1, 51398-2, 27704-05 ####[facility] LABCLIA [id number] [place] [address] [place] NUTRITIONon 10-01-2024 NUTRITION Normal [facility] No Panel Informationon 10-01 [facility] BACTERIA BLD CULT CULTURE, BLOOD: No growth 5 days [facility] Original Ordering Provider: CASEY RICH [facility] Phosphate SerPl-mCncon 10-01 Phosphate [Mass/Vol] 4.0 mg/dL Normal 2.7-4.8 [facility] Comment on above: Order Comment: Speci men Type: BLOOD SPECIMENOrdering Facility: [facility] Address: [address] [place] [address] Performed By: #### 3 084-1, 12298-1, 27704-05 ####[facility] LABCLIA [id number] [place] [address] [place] Urate SerPl-mCncon Urate [Mass/Vol] 3.5 mg/dL Normal 2.5-6.6 [facility] Comment on above: Order Comment: Speci men Type: BLOOD SPECIMENOrdering Facility: [facility] Address: [address] [place] [address] Performed By: #### 3 084-1, 45457-6, 2777-1 ####[facility] LABIA [id number] [place] [address] [place] C diff Tox gens Stl Ql JANET+p robeon 09-30-2024 C. difficile toxin genes JANET+probe Ql (Stl) Negative Normal Negative for C. difficile toxin by PCR [facility] Comment on above: Order Comment: Speci men Type: STOOL SPECIMENOrdering Facility: [facility] Address: [address] [place] [address] Performed By: #### 5 4067-4 ####[facility] LABIA [id number] [place] [address] [place] CBC W Auto Differential pane l (Bld)on 09-30-2024 Basophils (Bld) [#/Vol] 0.04 10*3/uL Normal <0.11 [facility] Comment on above: Order Comment: Speci men Type: BLOOD SPECIMENOrdering Facility: [facility] Address: [address] [place] [address] Performed By: #### 5 7021-8 ####[facility] LABIA [id number] [place] [address] [place] Basophils/100 WBC (Bld) 0.3 % Normal [facility] Comment on above: Order Comment: Speci men Type: BLOOD SPECIMENOrdering Facility: [facility] Address: [address] [place] [address] Performed By: #### 5 7021-8 ####[facility] LABIA [id number] [place] [address] [place] Differential cell count method Nom (Bld) Auto Normal [facility] Comment on above: Order Comment: Speci men Type: BLOOD SPECIMENOrdering Facility: [facility] Address: [address] [place] [address] Performed By: #### 5 7021-8 ####[facility] LABCLIA [id number] [place] [address] [place] Eosinophils (Bld) [#/Vol] 10*3/uL Normal <0.46 [facility] Comment on above: Order Comment: Speci men Type: BLOOD SPECIMENOrdering Facility: [facility] Address: [address] [place] [address] Performed By: #### 5 7021-8 ####[facility] LABCLIA [id number] [place] [address] [place] Eosinophils/100 WBC (Bld) 0.0 % Normal [facility] Comment on above: Order Comment: Speci men Type: BLOOD SPECIMENOrdering Facility: [facility] Address: [address] [place] [address] Performed By: #### 5 7021-8 ####[facility] LABCLIA [id number] [place] [address] [place] Erythrocyte distribution width (RBC) [Ratio] 19.3 % High 11.5-15.0 [facility] Comment on above: Order Comment: Speci men Type: BLOOD SPECIMENOrdering Facility: [facility] Address: [address] [place] [address] Performed By: #### 5 7021-8 ####[facility] LABCLIA [id number] [place] [address] [place] Hematocrit (Bld) [Volume fraction] 33.7 % Low 36.0-46.0 [facility] Comment on above: Order Comment: Speci men Type: BLOOD SPECIMENOrdering Facility: [facility] Address: [address] [place] [address] Performed By: #### 5 7021-8 ####[facility] LABCLIA [id number] [place] [address] [place] Hemoglobin (Bld) [Mass/Vol] 10.2 g/dL Low 11.5-15.5 [facility] Comment on above: Order Comment: Speci men Type: BLOOD SPECIMENOrdering Facility: [facility] Address: [address] [place] [address] Performed By: #### 5 7021-8 ####[facility] LABCLIA [id number] [place] [address] [place] Immature granulocytes (Bld) [#/Vol] 0.26 10*3/uL High <0.10 [facility] Comment on above: Order Comment: Speci men Type: BLOOD SPECIMENOrdering Facility: [facility] Address: [address] [place] [address] Performed By: #### 5 7021-8 ####[facility] LABCLIA [id number] [place] [address] [place] Immature granulocytes/100 WBC (Bld) 2.2 % Normal [facility] Comment on above: Order Comment: Speci men Type: BLOOD SPECIMENOrdering Facility: [facility] Address: [address] [place] [address] Performed By: #### 5 7021-8 ####[facility] LABCLIA [id number] [place] [address] [place] Lymphocytes (Bld) [#/Vol] 0.33 10*3/uL Low 1.00-4.00 [facility] Comment on above: Order Comment: Speci men Type: BLOOD SPECIMENOrdering Facility: [facility] Address: [address] [place] [address] Performed By: #### 5 7021-8 ####[facility] LABCLIA [id number] [place] [address] [place] Lymphocytes/100 WBC (Bld) 2.8 % Normal [facility] Comment on above: Order Comment: Speci men Type: BLOOD SPECIMENOrdering Facility: [facility] Address: [address] [place], [place] [address] Performed By: #### 5 7021-8 ####[facility] LABIA [id number] [place] [address] [place] MCH (RBC) [Entitic mass] 23.6 pg Low 26.0-34.0 [facility] Comment on above: Order Comment: Speci men Type: BLOOD SPECIMENOrdering Facility: [facility] Address: [address] [place] [address] Performed By: #### 5 7021-8 ####[facility] [id number] [place] [address] [place] MCHC (RBC) [Mass/Vol] 30.3 g/dL Low 30.5-36.0 [facility] Comment on above: Order Comment: Speci men Type: BLOOD SPECIMENOrdering Facility: [facility] Address: [address] [place] [address] Performed By: #### 5 7021-8 ####[facility] [id number] [place] [address] [place] MCV (RBC) [Entitic vol] 78.0 fL Low 80.0-100.0 [facility] Comment on above: Order Comment: Speci men Type: BLOOD SPECIMENOrdering Facility: [facility] Address: [address] [place] [address] Performed By: #### 5 7021-8 ####[facility] [id number] [place] [address] [place] Monocytes (Bld) [#/Vol] 0.53 10*3/uL Normal <0.87 [facility] Comment on above: Order Comment: Speci men Type: BLOOD SPECIMENOrdering Facility: [facility] Address: [address] [place] [address] Performed By: #### 5 7021-8 ####[facility] [id number] [place] [address] [place] Monocytes/100 WBC (Bld) 4.5 % Normal [facility] Comment on above: Order Comment: Speci men Type: BLOOD SPECIMENOrdering Facility: [facility] Address: [address] [place] [address] Performed By: #### 5 7021-8 ####[facility] LABCLIA [id number] [place] [address] [place] Neutrophils (Bld) [#/Vol] 10.58 10*3/uL High 1.45-7.50 [facility] Comment on above: Order Comment: Speci men Type: BLOOD SPECIMENOrdering Facility: [facility] Address: [address] [place] [address] Performed By: #### 5 7021-8 ####[facility] LABCLIA [id number] [place] [address] [place] Neutrophils/100 WBC (Bld) 90.2 % Normal [facility] Comment on above: Order Comment: Speci men Type: BLOOD SPECIMENOrdering Facility: [facility] Address: [address] [place] [address] Performed By: #### 5 7021-8 ####[facility] LABCLIA [id number] [place] [address] [place] Nucleated RBC (Bld) [#/Vol] 0.23 10*3/uL High <0.01 [facility] Comment on above: Order Comment: Speci men Type: BLOOD SPECIMENOrdering Facility: [facility] Address: [address] [place] [address] Performed By: #### 5 7021-8 ####[facility] LABCLIA [id number] [place] [address] [place] Nucleated RBC/100 WBC (Bld) [Ratio] 2.0 /100 WBC Normal [facility] Comment on above: Order Comment: Speci men Type: BLOOD SPECIMENOrdering Facility: [facility] Address: [address] [place] [address] Performed By: #### 5 7021-8 ####[facility] LABIA [id number] [place] [address] [place] Platelet mean volume (Bld) [Entitic vol] 10.1 fL Normal 9.0-12.7 [facility] Comment on above: Order Comment: Speci men Type: BLOOD SPECIMENOrdering Facility: [facility] Address: [address] [place] [address] Performed By: #### 5 7021-8 ####[facility] LABIA [id number] [place] [address] [place] Platelets (Bld) [#/Vol] 272 10*3/uL Normal 150-400 [facility] Comment on above: Order Comment: Speci men Type: BLOOD SPECIMENOrdering Facility: [facility] Address: [address] [place] [address] Performed By: #### 5 7021-8 ####[facility] LABIA [id number] [place] [address] [place] RBC (Bld) [#/Vol] 4.32 10*6/uL Normal 3.90-5.20 [facility] Comment on above: Order Comment: Speci men Type: BLOOD SPECIMENOrdering Facility: [facility] Address: [address] [place] [address] Performed By: #### 5 7021-8 ####[facility] LABIA [id number] [place] [address] [place] WBC (Bld) [#/Vol] 11.74 10*3/uL High 3.70-11.00 [facility] Comment on above: Order Comment: Speci men Type: BLOOD SPECIMENOrdering Facility: [facility] Address: [address] [place] [address] Performed By: #### 5 7021-8 ####[facility] LABCLIA [id number] [place] [address] [place] Basophils (Bld) [#/Vol] 0.04 10*3/uL Normal <0.11 [facility] Comment on above: Order Comment: Speci men Type: BLOOD SPECIMENOrdering Facility: [facility] Address: [address] [place] [address] Performed By: #### 5 7021-8 ####[facility] LABCLIA [id number] [place] [address] [place] Basophils/100 WBC (Bld) 0.3 % Normal [facility] Comment on above: Order Comment: Speci men Type: BLOOD SPECIMENOrdering Facility: [facility] Address: [address] [place] [address] Performed By: #### 5 7021-8 ####[facility] LABCLIA [id number] [place] [address] [place] Differential cell count method Nom (Bld) Auto Normal [facility] Comment on above: Order Comment: Speci men Type: BLOOD SPECIMENOrdering Facility: [facility] Address: [address] [place] [address] Performed By: #### 5 7021-8 ####[facility] LABCLIA [id number] [place] [address] [place] Eosinophils (Bld) [#/Vol] 10*3/uL Normal <0.46 [facility] Comment on above: Order Comment: Speci men Type: BLOOD SPECIMENOrdering Facility: [facility] Address: [address] [place] [address] Performed By: #### 5 7021-8 ####[facility] LABCLIA [id number] [place] [address] [place] Eosinophils/100 WBC (Bld) 0.0 % Normal [facility] Comment on above: Order Comment: Speci men Type: BLOOD SPECIMENOrdering Facility: [facility] Address: [address] [place] [address] Performed By: #### 5 7021-8 ####[facility] LABCLIA [id number] [place] [address] [place] Erythrocyte distribution width (RBC) [Ratio] 18.7 % High 11.5-15.0 [facility] Comment on above: Order Comment: Speci men Type: BLOOD SPECIMENOrdering Facility: [facility] Address: [address] [place] [address] Performed By: #### 5 7021-8 ####[facility] LABCLIA [id number] [place] [address] [place] Hematocrit (Bld) [Volume fraction] 31.5 % Low 36.0-46.0 [facility] Comment on above: Order Comment: Speci men Type: BLOOD SPECIMENOrdering Facility: [facility] Address: [address] [place] [address] Performed By: #### 5 7021-8 ####[facility] LABCLIA [id number] [place] [address] [place] Hemoglobin (Bld) [Mass/Vol] 9.2 g/dL Low 11.5-15.5 [facility] Comment on above: Order Comment: Speci men Type: BLOOD SPECIMENOrdering Facility: [facility] Address: [address] [place] [address] Performed By: #### 5 7021-8 ####[facility] LABCLIA [id number] [place] [address] [place] Immature granulocytes (Bld) [#/Vol] 0.30 10*3/uL High <0.10 [facility] Comment on above: Order Comment: Speci men Type: BLOOD SPECIMENOrdering Facility: [facility] Address: [address] [place] [address] Performed By: #### 5 7021-8 ####[facility] LABCLIA [id number] [place] [address] [place] Immature granulocytes/100 WBC (Bld) 2.2 % Normal [facility] Comment on above: Order Comment: Speci men Type: BLOOD SPECIMENOrdering Facility: [facility] Address: [address] [place] [address] Performed By: #### 5 7021-8 ####[facility] LABCLIA [id number] [place] [address] [place] Lymphocytes (Bld) [#/Vol] 0.39 10*3/uL Low 1.00-4.00 [facility] Comment on above: Order Comment: Speci men Type: BLOOD SPECIMENOrdering Facility: [facility] Address: [address] [place] [address] Performed By: #### 5 7021-8 ####[facility] LABCLIA [id number] [place] [address] [place] Lymphocytes/100 WBC (Bld) 2.9 % Normal [facility] Comment on above: Order Comment: Speci men Type: BLOOD SPECIMENOrdering Facility: [facility] Address: [address] [place] [address] Performed By: #### 5 7021-8 ####[facility] LABCLIA [id number] [place] [address] [place] MCH (RBC) [Entitic mass] 22.3 pg Low 26.0-34.0 [facility] Comment on above: Order Comment: Speci men Type: BLOOD SPECIMENOrdering Facility: [facility] Address: [address] [place] [address] Performed By: #### 5 7021-8 ####[facility] LABCLIA [id number] [place] [address] [place] MCHC (RBC) [Mass/Vol] 29.2 g/dL Low 30.5-36.0 [facility] Comment on above: Order Comment: Speci men Type: BLOOD SPECIMENOrdering Facility: [facility] Address: [address] [place] [address] Performed By: #### 5 7021-8 ####[facility] LABIA [id number] [place] [address] [place] MCV (RBC) [Entitic vol] 76.5 fL Low 80.0-100.0 [facility] Comment on above: Order Comment: Speci men Type: BLOOD SPECIMENOrdering Facility: [facility] Address: [address] [place] [address] Performed By: #### 5 7021-8 ####[facility] LABIA [id number] [place] [address] [place] Monocytes (Bld) [#/Vol] 0.75 10*3/uL Normal <0.87 [facility] Comment on above: Order Comment: Speci men Type: BLOOD SPECIMENOrdering Facility: [facility] Address: [address] [place] [address] Performed By: #### 5 7021-8 ####[facility] LABIA [id number] [place] [address] [place] Monocytes/100 WBC (Bld) 5.5 % Normal [facility] Comment on above: Order Comment: Speci men Type: BLOOD SPECIMENOrdering Facility: [facility] Address: [address] [place] [address] Performed By: #### 5 7021-8 ####[facility] LABIA [id number] [place] [address] [place] Neutrophils (Bld) [#/Vol] 12.17 10*3/uL High 1.45-7.50 [facility] Comment on above: Order Comment: Speci men Type: BLOOD SPECIMENOrdering Facility: [facility] Address: [address] [place] [address] Performed By: #### 5 7021-8 ####[facility] LABCLIA [id number] [place] [address] [place] Neutrophils/100 WBC (Bld) 89.1 % Normal [facility] Comment on above: Order Comment: Speci men Type: BLOOD SPECIMENOrdering Facility: [facility] Address: [address] [place] [address] Performed By: #### 5 7021-8 ####[facility] LABIA [id number] [place] [address] [place] Nucleated RBC (Bld) [#/Vol] 0.36 10*3/uL High <0.01 [facility] Comment on above: Order Comment: Speci men Type: BLOOD SPECIMENOrdering Facility: [facility] Address: [address] [place] [address] Performed By: #### 5 7021-8 ####[facility] LABIA [id number] [place] [address] [place] Nucleated RBC/100 WBC (Bld) [Ratio] 2.6 /100 WBC Normal [facility] Comment on above: Order Comment: Speci men Type: BLOOD SPECIMENOrdering Facility: [facility] Address: [address] [place] [address] Performed By: #### 5 7021-8 ####[facility] LABIA [id number] [place] [address] [place] Platelet mean volume (Bld) [Entitic vol] 10.2 fL Normal 9.0-12.7 [facility] Comment on above: Order Comment: Speci men Type: BLOOD SPECIMENOrdering Facility: [facility] Address: [address] [place] [address] Performed By: #### 5 7021-8 ####[facility] LABIA [id number] [place] [address] [place] Platelets (Bld) [#/Vol] 261 10*3/uL Normal 150-400 [facility] Comment on above: Order Comment: Speci men Type: BLOOD SPECIMENOrdering Facility: [facility] Address: [address] [place] [address] Performed By: #### 5 7021-8 ####[facility] LABCLIA [id number] [address] [address] [place] RBC (Bld) [#/Vol] 4.12 10*6/uL Normal 3.90-5.20 [facility] Comment on above: Order Comment: Speci men Type: BLOOD SPECIMENOrdering Facility: [facility] Address: [address] [place] [address] Performed By: #### 5 7021-8 ####[facility] LABCLIA [id number] [address] [address] [place] WBC (Bld) [#/Vol] 13.65 10*3/uL High 3.70-11.00 [facility] Comment on above: Order Comment: Speci men Type: BLOOD SPECIMENOrdering Facility: [facility] Address: [address] [place] [address] Performed By: #### 5 7021-8 ####[facility] LABCLIA [id number] [place] [address] [place] Comprehensive metabolic 2000 panelon 09-30-2024 Albumin [Mass/Vol] 3.3 g/dL Low 3.9-4.9 [facility] Comment on above: Order Comment: Speci men Type: BLOOD SPECIMENOrdering Facility: [facility] Address: [address] [place] [address] Performed By: #### 2 777-1, 06380-2, 38937-4, 3084-1 ####[facility] LABCLIA [id number] [place] [address] [place] ALP [Catalytic activity/Vol] 169 U/L High 34-123 [facility] Comment on above: Order Comment: Speci men Type: BLOOD SPECIMENOrdering Facility: [facility] Address: [address] [place], [place] [address] Performed By: #### 2 777-1, 91534-7, , 3083-10 ####[facility] LABCLIA [id number] [address] [address] [place] ALT [Catalytic activity/Vol] 59 U/L High 7-38 [facility] Comment on above: Order Comment: Speci men Type: BLOOD SPECIMENOrdering Facility: [facility] Address: [address] [place] [address] Performed By: #### 2 777-1, 37070-4, , 3083-10 ####[facility] LABCLIA [id number] [place] [address] [place] Anion gap [Moles/Vol] 11 mmol/L Normal 8-15 [facility] Comment on above: Order Comment: Speci men Type: BLOOD SPECIMENOrdering Facility: [facility] Address: [address] [place] [address] Performed By: #### 2 777-1, 47056-8, , 3083-10 ####[facility] LABIA [id number] [place] [address] [place] AST [Catalytic activity/Vol] 26 U/L Normal 13-35 [facility] Comment on above: Order Comment: Speci men Type: BLOOD SPECIMENOrdering Facility: [facility] Address: [address] [place], [place] [address] Performed By: #### 2 777-1, 31020-8, , 3083-10 ####[facility] LABCLIA [id number] [address] [address] [place] Bilirubin [Mass/Vol] 0.7 mg/dL Normal 0.2-1.3 [facility] Comment on above: Order Comment: Speci men Type: BLOOD SPECIMENOrdering Facility: [facility] Address: [address] [place] [address] Performed By: #### 2 777-1, 63451-6, , 3083-10 ####[facility] LABCLIA [id number] [address] [address] [place] Calcium [Mass/Vol] 9.0 mg/dL Normal 8.5-10.2 [facility] Comment on above: Order Comment: Speci men Type: BLOOD SPECIMENOrdering Facility: [facility] Address: [address] [place] [address] Performed By: #### 2 777-1, 19855-4, , 3083-10 ####[facility] LABCLIA [id number] [place] [address] [place] Chloride [Moles/Vol] 103 mmol/L Normal 98-107 [facility] Comment on above: Order Comment: Speci men Type: BLOOD SPECIMENOrdering Facility: [facility] Address: [address] [place] [address] Performed By: #### 2 777-1, 40129-8, , 3083-10 ####[facility] LABIA [id number] [place] [address] [place] CO2 [Moles/Vol] 29 mmol/L Normal 22-30 [facility] Comment on above: Order Comment: Speci men Type: BLOOD SPECIMENOrdering Facility: [facility] Address: [address] [place] [address] Performed By: #### 2 777-1, 02959-6, , 3083-10 ####[facility] LABCLIA [id number] [address] [address] [place] Creatinine [Mass/Vol] 0.45 mg/dL Low 0.58-0.96 [facility] Comment on above: Order Comment: Speci men Type: BLOOD SPECIMENOrdering Facility: [facility] Address: [address] [place] [id number] Performed By: #### 2 777-1, 19589-2, 51551-8, 3083- ####[facility] LABCLIA [id number] [place] [address] [place] Creatinine and Glomerular filtration rate.predicted panel (S/P/Bld) 126 mL/min/1.73m??? Normal >=60 [facility] Comment on above: Order Comment: Jeremie patricia Type: BLOOD SPECIMENOrdering Facility: [facility] Address: [address] [place] [address] Result Comment: Adina mated Glomerular Filtration Rate (eGFR) is calculated using the 2020 CKD-EPI creatinine equation. This equation utilizes serum creatinine, sex, and age as parameters. The creatinine assay has traceable calibration to isotope dilution-mass spectrometry. Refer to KDIGO guidelines for clinical interpretation. In patients with unstable renal function, e.g. those with acute kidney injury, the eGFR may not accurately reflect actual GFR. Performed By: #### 2 777-1, 90222-4, 36113-3, 3083- ####[facility] LABCLIA [id number] [place] [address] [place] Glucose [Mass/Vol] 184 mg/dL High 74-99 [facility] Comment on above: Order Comment: Jeremie gomez Type: BLOOD SPECIMENOrdering Facility: [facility] Address: [address] [place] [address] Result Comment: The [place] [employer] (ADA) provides guidance for cutoff values for fasting glucose and random glucose. The ADA defines fasting as no caloric intake for at least 8 hours. Fasting plasma glucose results between 100 to 125 mg/dL indicate increased risk for diabetes (prediabetes).Fasting plasma glucose results greater than or equal to 126 mg/dL meet the criteria for diagnosis of diabetes. In the absence of unequivocal hyperglycemia, results should be confirmed by repeat testing. In a patient with classic symptoms of hyperglycemia or hyperglycemic crisis, random plasma glucose results greater than or equal to 200 mg/dL meet the criteria for diagnosis of diabetes.Reference: Standards of Medical Care in Diabetes 2016, [place] [employer]. Diabetes Care. 2016.39(Suppl 1). Performed By: #### 2 777-1, 83524-7, , 3083-10 ####[facility] LABCLIA [id number] [address] [address] [place] Potassium [Moles/Vol] 4.8 mmol/L Normal 3.7-5.1 [facility] Comment on above: Order Comment: Speci men Type: BLOOD SPECIMENOrdering Facility: [facility] Address: [address] [place] [address] Performed By: #### 2 777-1, 74917-9, , 3083-10 ####[facility] LABCLIA [id number] [place] [address] [place] Protein [Mass/Vol] 6.4 g/dL Normal 6.3-8.0 [facility] Comment on above: Order Comment: Speci men Type: BLOOD SPECIMENOrdering Facility: [facility] Address: [address] [place] [address] Performed By: #### 2 777-1, , , 3083-10 ####[facility] LABIA [id number] [place] [address] [place] Sodium [Moles/Vol] 143 mmol/L Normal 136-144 [facility] Comment on above: Order Comment: Speci men Type: BLOOD SPECIMENOrdering Facility: [facility] Address: [address] [place] [address] Performed By: #### 2 777-1, , , 3083-10 ####[facility] LABCLIA [id number] [address] [address] [place] Urea nitrogen [Mass/Vol] 19 mg/dL Normal 7-21 [facility] Comment on above: Order Comment: Speci men Type: BLOOD SPECIMENOrdering Facility: [facility] Address: [address] [place] [address] Performed By: #### 2 777-1, 90988-9, 02365-4, 3084-1 ####[facility] LABCLIA [id number] [address] [address] [place] Albumin [Mass/Vol] 3.6 g/dL Low 3.9-4.9 [facility] Comment on above: Order Comment: Speci men Type: BLOOD SPECIMENOrdering Facility: [facility] Address: [address] [place] [address] Performed By: #### 2 4323-8, 2777-1, 308-1 ####[facility] LABCLIA [id number] [place] [address] [place] ALP [Catalytic activity/Vol] 183 U/L High 34-123 [facility] Comment on above: Order Comment: Speci men Type: BLOOD SPECIMENOrdering Facility: [facility] Address: [address] [place] [address] Performed By: #### 2 4323-8, 2777-1, 3083- ####[facility] LABCLIA [id number] [place] [address] [place] ALT [Catalytic activity/Vol] 63 U/L High 7-38 [facility] Comment on above: Order Comment: Speci men Type: BLOOD SPECIMENOrdering Facility: [facility] Address: [address] [place] [address] Performed By: #### 2 4323-8, 2777-1, 308-1 ####[facility] LABCLIA [id number] [place] [address] [place] Anion gap [Moles/Vol] 10 mmol/L Normal 8-15 [facility] Comment on above: Order Comment: Speci men Type: BLOOD SPECIMENOrdering Facility: [facility] Address: [address] [place] [address] Performed By: #### 2 4323-8, 2777-1, 3083-1 ####[facility] LABIA [id number] [place] [address] [place] AST [Catalytic activity/Vol] 26 U/L Normal 13-35 [facility] Comment on above: Order Comment: Speci men Type: BLOOD SPECIMENOrdering Facility: [facility] Address: [address] [place] [address] Performed By: #### 2 4323-8, 2777-1, 3083- ####[facility] LABIA [id number] [place] [address] [place] Bilirubin [Mass/Vol] 0.7 mg/dL Normal 0.2-1.3 [facility] Comment on above: Order Comment: Speci men Type: BLOOD SPECIMENOrdering Facility: [facility] Address: [address] [place] [address] Performed By: #### 2 4323-8, 277-, 3083- ####[facility] LABIA [id number] [place] [address] [place] Calcium [Mass/Vol] 9.0 mg/dL Normal 8.5-10.2 [facility] Comment on above: Order Comment: Speci men Type: BLOOD SPECIMENOrdering Facility: [facility] Address: [address] [place] [address] Performed By: #### 2 4323-8, 277-1, 3083- ####[facility] LABIA [id number] [place] [address] [place] Chloride [Moles/Vol] 102 mmol/L Normal 98-107 [facility] Comment on above: Order Comment: Speci men Type: BLOOD SPECIMENOrdering Facility: [facility] Address: [address] [place] [address] Performed By: #### 2 4323-8, 277-, 3083-10 ####[facility] LABCLIA [id number] [place] [address] [place] CO2 [Moles/Vol] 30 mmol/L Normal 22-30 [facility] Comment on above: Order Comment: Speci men Type: BLOOD SPECIMENOrdering Facility: [facility] Address: [address] [place] [address] Performed By: #### 2 4323-8, 277-, 3083-10 ####[facility] LABIA [id number] [place] [address] [place] Creatinine [Mass/Vol] 0.44 mg/dL Low 0.58-0.96 [facility] Comment on above: Order Comment: Speci men Type: BLOOD SPECIMENOrdering Facility: [facility] Address: [address] [place] [address] Performed By: #### 2 4323-8, 2776-10, 3083-10 ####[facility] LABIA [id number] [place] [address] [place] Creatinine and Glomerular filtration rate.predicted panel (S/P/Bld) 126 mL/min/1.73m??? Normal >=60 [facility] Comment on above: Order Comment: Speci men Type: BLOOD SPECIMENOrdering Facility: [facility] Address: [address] [place] [address] Result Comment: Adina mated Glomerular Filtration Rate (eGFR) is calculated using the 2020 CKD-EPI creatinine equation. This equation utilizes serum creatinine, sex, and age as parameters. The creatinine assay has traceable calibration to isotope dilution-mass spectrometry. Refer to KDIGO guidelines for clinical interpretation. In patients with unstable renal function, e.g. those with acute kidney injury, the eGFR may not accurately reflect actual GFR. Performed By: #### 2 4323-8, 277-1, 3083- ####[facility] LABCLIA [id number] [place] [address] [place] Glucose [Mass/Vol] 148 mg/dL High 74-99 [facility] Comment on above: Order Comment: Speci men Type: BLOOD SPECIMENOrdering Facility: [facility] Address: [address] [place] [address] Result Comment: The [place] [employer] (ADA) provides guidance for cutoff values for fasting glucose and random glucose. The ADA defines fasting as no caloric intake for at least 8 hours. Fasting plasma glucose results between 100 to 125 mg/dL indicate increased risk for diabetes (prediabetes).Fasting plasma glucose results greater than or equal to 126 mg/dL meet the criteria for diagnosis of diabetes. In the absence of unequivocal hyperglycemia, results should be confirmed by repeat testing. In a patient with classic symptoms of hyperglycemia or hyperglycemic crisis, random plasma glucose results greater than or equal to 200 mg/dL meet the criteria for diagnosis of diabetes.Reference: Standards of Medical Care in Diabetes 2016, [place] [employer]. Diabetes Care. 2016.39(Suppl 1). Performed By: #### 2 4323-8, 2777-, 308- ####[facility] LABCLIA [id number] [place] [address] [place] Potassium [Moles/Vol] 4.5 mmol/L Normal 3.7-5.1 [facility] Comment on above: Order Comment: Speci men Type: BLOOD SPECIMENOrdering Facility: [facility] Address: [address] [place] [address] Performed By: #### 2 4323-8, 2777-, 3083- ####[facility] LABCLIA [id number] [place] [address] [place] Protein [Mass/Vol] 6.5 g/dL Normal 6.3-8.0 [facility] Comment on above: Order Comment: Speci men Type: BLOOD SPECIMENOrdering Facility: [facility] Address: [address] [place], [place] [address] Performed By: #### 2 4323-8, 2777-, 3083-1 ####[facility] LABCLIA [id number] [facility] [address] [address] [place] Sodium [Moles/Vol] 142 mmol/L Normal 136-144 [facility] Comment on above: Order Comment: Speci men Type: BLOOD SPECIMENOrdering Facility: [facility] Address: [address] [place] [address] Performed By: #### 2 4323-8, 2777-1, 308-1 ####[facility] LABCLIA [id number] [place] [address] [place] Urea nitrogen [Mass/Vol] 18 mg/dL Normal 7-21 [facility] Comment on above: Order Comment: Speci men Type: BLOOD SPECIMENOrdering Facility: [facility] Address: [address] [place] [address] Performed By: #### 2 4323-8, 277-1, 308-1 ####[facility] LABCLIA [id number] [place] [address] [place] Albumin [Mass/Vol] 3.4 g/dL Low 3.9-4.9 [facility] Comment on above: Order Comment: Speci men Type: BLOOD SPECIMENOrdering Facility: [facility] Address: [address] [place] [address] Performed By: #### 1 9123-9, 2777-1, 308-1, 82330-0 ####[facility] LABCLIA [id number] [place] [address] [place] ALP [Catalytic activity/Vol] 182 U/L High 34-123 [facility] Comment on above: Order Comment: Speci men Type: BLOOD SPECIMENOrdering Facility: [facility] Address: [address] [place] [address] Performed By: #### 1 9123-9, 2777-1, 3084-1, 28815-7 ####[facility] LABCLIA [id number] [place] [address] [place] ALT [Catalytic activity/Vol] 61 U/L High 7-38 [facility] Comment on above: Order Comment: Speci men Type: BLOOD SPECIMENOrdering Facility: [facility] Address: [address] [place] [address] Performed By: #### 1 9123-9, 2777-1, 308-1, 66679-0 ####[facility] LABCLIA [id number] [place] [address] [place] Anion gap [Moles/Vol] 12 mmol/L Normal 8-15 [facility] Comment on above: Order Comment: Speci men Type: BLOOD SPECIMENOrdering Facility: [facility] Address: [address] [place] [address] Performed By: #### 1 9123-9, 2777-1, 308-, 97773-5 ####[facility] LABIA [id number] [place] [address] [place] AST [Catalytic activity/Vol] 24 U/L Normal 13-35 [facility] Comment on above: Order Comment: Speci men Type: BLOOD SPECIMENOrdering Facility: [facility] Address: [address] [place] [address] Performed By: #### 1 9123-9, 2777-1, 308-1, 30819-3 ####[facility] LABCLIA [id number] [place] [address] [place] Bilirubin [Mass/Vol] 0.6 mg/dL Normal 0.2-1.3 [facility] Comment on above: Order Comment: Speci men Type: BLOOD SPECIMENOrdering Facility: [facility] Address: [address] [place] [address] Performed By: #### 1 9123-9, 2777-1, 3084-1, 64056-7 ####[facility] LABCLIA [id number] [address] [address] [place] Calcium [Mass/Vol] 9.0 mg/dL Normal 8.5-10.2 [facility] Comment on above: Order Comment: Speci men Type: BLOOD SPECIMENOrdering Facility: [facility] Address: [address] [place] [address] Performed By: #### 1 9123-9, 2777-1, 308-1, 85135-8 ####[facility] LABCLIA [id number] [place] [address] [place] Chloride [Moles/Vol] 100 mmol/L Normal 98-107 [facility] Comment on above: Order Comment: Speci men Type: BLOOD SPECIMENOrdering Facility: [facility] Address: [address] [place] [address] Performed By: #### 1 9123-9, 2777-1, 3083-, 97648-4 ####[facility] LABCLIA [id number] [place] [address] [place] CO2 [Moles/Vol] 28 mmol/L Normal 22-30 [facility] Comment on above: Order Comment: Speci men Type: BLOOD SPECIMENOrdering Facility: [facility] Address: [address] [place] [address] Performed By: #### 1 9123-9, 2777-1, 308-, 69120-1 ####[facility] LABCLIA [id number] [address] [address] [place] Creatinine [Mass/Vol] 0.42 mg/dL Low 0.58-0.96 [facility] Comment on above: Order Comment: Speci men Type: BLOOD SPECIMENOrdering Facility: [facility] Address: [address] [place] [address] Performed By: #### 1 9123-9, 2777-1, 3084-1, 04067-9 ####[facility] LABCLIA [id number] [address] [place] Creatinine and Glomerular filtration rate.predicted panel (S/P/Bld) 128 mL/min/1.73m??? Normal >=60 [facility] Comment on above: Order Comment: Jeremie gomez Type: BLOOD SPECIMENOrdering Facility: [facility] Address: [address] [place] [address] Result Comment: Adina mated Glomerular Filtration Rate (eGFR) is calculated using the 2020 CKD-EPI creatinine equation. This equation utilizes serum creatinine, sex, and age as parameters. The creatinine assay has traceable calibration to isotope dilution-mass spectrometry. Refer to KDIGO guidelines for clinical interpretation. In patients with unstable renal function, e.g. those with acute kidney injury, the eGFR may not accurately reflect actual GFR. Performed By: #### 1 9123-9, 2777-1, 3084-1, 34478-9 ####[facility] LABCLIA [id number] [place] [address] [place] Glucose [Mass/Vol] 200 mg/dL High 74-99 [facility] Comment on above: Order Comment: Jeremie gomez Type: BLOOD SPECIMENOrdering Facility: [facility] Address: [address] [place] [address] Result Comment: The [place] Diabetes [employer] (ADA) provides guidance for cutoff values for fasting glucose and random glucose. The ADA defines fasting as no caloric intake for at least 8 hours. Fasting plasma glucose results between 100 to 125 mg/dL indicate increased risk for diabetes (prediabetes).Fasting plasma glucose results greater than or equal to 126 mg/dL meet the criteria for diagnosis of diabetes. In the absence of unequivocal hyperglycemia, results should be confirmed by repeat testing. In a patient with classic symptoms of hyperglycemia or hyperglycemic crisis, random plasma glucose results greater than or equal to 200 mg/dL meet the criteria for diagnosis of diabetes.Reference: Standards of Medical Care in Diabetes 2016, [place] [employer]. Diabetes Care. 2016.39(Suppl 1). Performed By: #### 1 9123-9, 2777-1, 3084-1, 05668-2 ####[facility] LABCLIA [id number] [address] [address] [place] Potassium [Moles/Vol] 4.2 mmol/L Normal 3.7-5.1 [facility] Comment on above: Order Comment: Speci men Type: BLOOD SPECIMENOrdering Facility: [facility] Address: [address] [place] [address] Performed By: #### 1 9123-9, 2777-1, 308-1, 71288-9 ####[facility] LABCLIA [id number] [place] [address] [place] Protein [Mass/Vol] 6.3 g/dL Normal 6.3-8.0 [facility] Comment on above: Order Comment: Speci men Type: BLOOD SPECIMENOrdering Facility: [facility] Address: [address] [place] [address] Performed By: #### 1 9123-9, 2777-1, 3083-, 83374-0 ####[facility] LABCLIA [id number] [place] [address] [place] Sodium [Moles/Vol] 140 mmol/L Normal 136-144 [facility] Comment on above: Order Comment: Speci men Type: BLOOD SPECIMENOrdering Facility: [facility] Address: [address] [place] [address] Performed By: #### 1 9123-9, 2777-1, 308-, 71064-9 ####[facility] LABCLIA [id number] [place] [address] [place] Urea nitrogen [Mass/Vol] 18 mg/dL Normal 7-21 [facility] Comment on above: Order Comment: Speci men Type: BLOOD SPECIMENOrdering Facility: [facility] Address: [address] [place] [address] Performed By: #### 1 9123-9, 2777-1, 308-1, 54183-5 ####[facility] LABCLIA [id number] [address] [address] [place] Fibrinogen PPP-mCncon 2023 Fibrinogen Coag (PPP) [Mass/Vol] 448 mg/dL High 200-400 [facility] Comment on above: Order Comment: Speci men Type: BLOOD SPECIMENOrdering Facility: [facility] Address: [address] [place] [address] Performed By: #### 3 255-7, 70965-8 ####[facility] LABIA [id number] [place] [address] [place] Fibrinogen Coag (PPP) [Mass/Vol] 491 mg/dL High 200-400 [facility] Comment on above: Order Comment: Speci men Type: BLOOD SPECIMENOrdering Facility: [facility] Address: [address] [place] [address] Result Comment: Resu lt rechecked.Sample checked for clot. Performed By: #### 3 255-7, 45333-1 ####[facility] LABIA [id number] [place] [address] [place] Magnesium SerPl-mCncon 09-30 Magnesium [Mass/Vol] 2.6 mg/dL High 1.7-2.3 [facility] Comment on above: Order Comment: Speci men Type: BLOOD SPECIMENOrdering Facility: [facility] Address: [address] [place] [address] Performed By: #### 2 777-1, 04431-7, 03539-1, 3084-1 ####[facility] LABIA [id number] [place] [address] [place] Magnesium [Mass/Vol] 2.6 mg/dL High 1.7-2.3 [facility] Comment on above: Order Comment: Speci men Type: BLOOD SPECIMENOrdering Facility: [facility] Address: [address] [place] [address] Performed By: #### 1 9123-9, 2777-1, 3084-1, 03808-1 ####[facility] LABCLIA [id number] [place] [address] [place] PT panel Coag (PPP)on 2023 INR Coag (PPP) [Relative time] 1.3 {INR} Normal 0.9-1.3 [facility] Comment on above: Order Comment: Speci men Type: BLOOD SPECIMENOrdering Facility: [facility] Address: [address] [place] [address] Result Comment: Dorene min K Antagonist (VKA) Therapeutic Range: INR 2 to 3 (Target INR of 2.5)Note: For patients treated with VKA drugs, such as warfarin, the [place] [employer] 2012 Guideline recommends a therapeutic INR range of 2 to 3 (target INR of 2.5). This recommendation includes high-risk patients with antiphospholipid syndrome with previous arterial or venous thromboembolism, current-generation mechanical or bioprosthetic aortic heart valve replacement.Note: Patients with mechanical aortic valve replacement and additional risk factors for thromboembolic events (atrial fibrillation, previous thromboembolism, LV dysfunction, hypercoagulable conditions) or an older generation mechanical AVR (i.e., ball in-Cage) or any mechanical MVR should have a INR therapeutic range of 2.5 to 3.5 (target INR of 3).Dayan GH, et al. Chest 2012, 141:7S-47SMarla RA, et al. [facility] 2017, 70: 252-289 Performed By: #### 3 255-7, 46344-7 ####[facility] LABCLIA [id number] [place] [address] [place] PT Coag (PPP) [Time] 13.6 s High 9.7-13.0 [facility] Comment on above: Order Comment: Speci men Type: BLOOD SPECIMENOrdering Facility: [facility] Address: [address] [place] [address] Performed By: #### 3 255-7, 32193-0 ####[facility] LABCLIA [id number] [place] [address] [place] INR Coag (PPP) [Relative time] 1.3 {INR} Normal 0.9-1.3 [facility] Comment on above: Order Comment: Jeremie gomez Type: BLOOD SPECIMENOrdering Facility: [facility] Address: [address] [place] [address] Result Comment: Dorene min K Antagonist (VKA) Therapeutic Range: INR 2 to 3 (Target INR of 2.5)Note: For patients treated with VKA drugs, such as warfarin, the [place] [employer] 2012 Guideline recommends a therapeutic INR range of 2 to 3 (target INR of 2.5). This recommendation includes high-risk patients with antiphospholipid syndrome with previous arterial or venous thromboembolism, current-generation mechanical or bioprosthetic aortic heart valve replacement.Note: Patients with mechanical aortic valve replacement and additional risk factors for thromboembolic events (atrial fibrillation, previous thromboembolism, LV dysfunction, hypercoagulable conditions) or an older generation mechanical AVR (i.e., ball in-Cage) or any mechanical MVR should have a INR therapeutic range of 2.5 to 3.5 (target INR of 3).Dayan HILLIARD, et al. Chest 2012, 141:7S-47SNishimemeterio RA, et al. JAC 2017, 70: 252-289 Performed By: #### 3 255-7, 21030-4 ####[facility] LABIA [id number] [place] [address] [place] PT Coag (PPP) [Time] 14.0 s High 9.7-13.0 [facility] Comment on above: Order Comment: Jeremie gomez Type: BLOOD SPECIMENOrdering Facility: [facility] Address: [address] [place] [address] Performed By: #### 3 255-7, 39229-7 ####[facility] LABIA [id number] [place] [address] [place] Phosphate SerPl-mCncon 09-30 Phosphate [Mass/Vol] 4.6 mg/dL Normal 2.7-4.8 [facility] Comment on above: Order Comment: Speci men Type: BLOOD SPECIMENOrdering Facility: [facility] Address: [address] [place], [place] [address] Performed By: #### 2 777-1, 95391-1, 06300-6, 3083- ####[facility] LABCLIA [id number] [address] [address] [place] Phosphate [Mass/Vol] 3.7 mg/dL Normal 2.7-4.8 [facility] Comment on above: Order Comment: Speci men Type: BLOOD SPECIMENOrdering Facility: [facility] Address: [address] [place] [address] Performed By: #### 2 4323-8, 277-, 3083- ####[facility] LABCLIA [id number] [place] [address] [place] Phosphate [Mass/Vol] 3.3 mg/dL Normal 2.7-4.8 [facility] Comment on above: Order Comment: Speci men Type: BLOOD SPECIMENOrdering Facility: [facility] Address: [address] [place] [address] Performed By: #### 1 9123-9, 277-1, 3083-, 51375-8 ####[facility] LABCLIA [id number] [place] [address] [place] THERAPY NTon 09-30-2024 THERAPY NT Normal [facility] Urate SerPl-mCncon 4 Urate [Mass/Vol] 3.8 mg/dL Normal 2.5-6.6 [facility] Comment on above: Order Comment: Speci men Type: BLOOD SPECIMENOrdering Facility: [facility] Address: [address] [place] [address] Performed By: #### 2 777-1, 10593-1, 67018-8, 3083-1 ####[facility] LABCLIA [id number] [address] [address] [place] Urate [Mass/Vol] 2.9 mg/dL Normal 2.5-6.6 [facility] Comment on above: Order Comment: Speci men Type: BLOOD SPECIMENOrdering Facility: [facility] Address: [address] [place] [address] Performed By: #### 2 4323-8, 2777-1, 3084-1 ####[facility] LABCLIA [id number] [place] [address] [place] Urate [Mass/Vol] 2.6 mg/dL Normal 2.5-6.6 [facility] Comment on above: Order Comment: Speci men Type: BLOOD SPECIMENOrdering Facility: [facility] Address: [address] [place] [address] Performed By: #### 1 9123-9, 2777-1, 3084-1, 55123-7 ####[facility] LABCLIA [id number] [place] [address] [place] CBC W Auto Differential pane l (Bld)on 09-29-2024 Basophils (Bld) [#/Vol] 0.05 10*3/uL Normal <0.11 [facility] Comment on above: Order Comment: Speci men Type: BLOOD SPECIMENOrdering Facility: [facility] Address: [address] [place] [address] Performed By: #### 5 7021-8 ####[facility] LABCLIA [id number] [place] [address] [place] Basophils/100 WBC (Bld) 0.3 % Normal [facility] Comment on above: Order Comment: Speci men Type: BLOOD SPECIMENOrdering Facility: [facility] Address: [address] [place] [address] Performed By: #### 5 7021-8 ####[facility] LABCLIA [id number] [place] [address] [place] Differential cell count method Nom (Bld) Auto Normal [facility] Comment on above: Order Comment: Speci men Type: BLOOD SPECIMENOrdering Facility: [facility] Address: [address] [place] [address] Performed By: #### 5 7021-8 ####[facility] LABCLIA [id number] [place] [address] [place] Eosinophils (Bld) [#/Vol] 10*3/uL Normal <0.46 [facility] Comment on above: Order Comment: Speci men Type: BLOOD SPECIMENOrdering Facility: [facility] Address: [address] [place] [address] Performed By: #### 5 7021-8 ####[facility] LABCLIA [id number] [place] [address] [place] Eosinophils/100 WBC (Bld) 0.0 % Normal [facility] Comment on above: Order Comment: Speci men Type: BLOOD SPECIMENOrdering Facility: [facility] Address: [address] [place] [address] Performed By: #### 5 7021-8 ####[facility] LABCLIA [id number] [place] [address] [place] Erythrocyte distribution width (RBC) [Ratio] 18.4 % High 11.5-15.0 [facility] Comment on above: Order Comment: Speci men Type: BLOOD SPECIMENOrdering Facility: [facility] Address: [address] [place] [address] Performed By: #### 5 7021-8 ####[facility] LABCLIA [id number] [place] [address] [place] Hematocrit (Bld) [Volume fraction] 30.9 % Low 36.0-46.0 [facility] Comment on above: Order Comment: Speci men Type: BLOOD SPECIMENOrdering Facility: [facility] Address: [address] [place] [address] Performed By: #### 5 7021-8 ####[facility] LABCLIA [id number] [place] [address] [place] Hemoglobin (Bld) [Mass/Vol] 9.3 g/dL Low 11.5-15.5 [facility] Comment on above: Order Comment: Speci men Type: BLOOD SPECIMENOrdering Facility: [facility] Address: [address] [place] [address] Performed By: #### 5 7021-8 ####[facility] LABCLIA [id number] [place] [address] [place] Immature granulocytes (Bld) [#/Vol] 0.73 10*3/uL High <0.10 [facility] Comment on above: Order Comment: Speci men Type: BLOOD SPECIMENOrdering Facility: [facility] Address: [address] [place] [address] Performed By: #### 5 7021-8 ####[facility] LABCLIA [id number] [place] [address] [place] Immature granulocytes/100 WBC (Bld) 4.4 % Normal [facility] Comment on above: Order Comment: Speci men Type: BLOOD SPECIMENOrdering Facility: [facility] Address: [address] [place] [address] Performed By: #### 5 7021-8 ####[facility] LABCLIA [id number] [place] [address] [place] Lymphocytes (Bld) [#/Vol] 0.47 10*3/uL Low 1.00-4.00 [facility] Comment on above: Order Comment: Speci men Type: BLOOD SPECIMENOrdering Facility: [facility] Address: [address] [place] [address] Performed By: #### 5 7021-8 ####[facility] LABCLIA [id number] [place] [address] [place] Lymphocytes/100 WBC (Bld) 2.8 % Normal [facility] Comment on above: Order Comment: Speci men Type: BLOOD SPECIMENOrdering Facility: [facility] Address: [address] [place] [address] Performed By: #### 5 7021-8 ####[facility] LABIA [id number] [place] [address] [place] MCH (RBC) [Entitic mass] 23.2 pg Low 26.0-34.0 [facility] Comment on above: Order Comment: Speci men Type: BLOOD SPECIMENOrdering Facility: [facility] Address: [address] [place] [address] Performed By: #### 5 7021-8 ####[facility] LABCLIA [id number] [place] [address] [place] MCHC (RBC) [Mass/Vol] 30.1 g/dL Low 30.5-36.0 [facility] Comment on above: Order Comment: Speci men Type: BLOOD SPECIMENOrdering Facility: [facility] Address: [address] [place] [address] Performed By: #### 5 7021-8 ####[facility] LABIA [id number] [place] [address] [place] MCV (RBC) [Entitic vol] 77.1 fL Low 80.0-100.0 [facility] Comment on above: Order Comment: Speci men Type: BLOOD SPECIMENOrdering Facility: [facility] Address: [address] [place] [address] Performed By: #### 5 7021-8 ####[facility] LABIA [id number] [place] [address] [place] Monocytes (Bld) [#/Vol] 1.19 10*3/uL High <0.87 [facility] Comment on above: Order Comment: Speci men Type: BLOOD SPECIMENOrdering Facility: [facility] Address: [address] [place] [address] Performed By: #### 5 7021-8 ####[facility] LABCLIA [id number] [place] [address] [place] Monocytes/100 WBC (Bld) 7.2 % Normal [facility] Comment on above: Order Comment: Speci men Type: BLOOD SPECIMENOrdering Facility: [facility] Address: [address] [place] [address] Performed By: #### 5 7021-8 ####[facility] LABIA [id number] [place] [address] [place] Neutrophils (Bld) [#/Vol] 14.10 10*3/uL High 1.45-7.50 [facility] Comment on above: Order Comment: Speci men Type: BLOOD SPECIMENOrdering Facility: [facility] Address: [address] [place] [address] Performed By: #### 5 7021-8 ####[facility] LABIA [id number] [place] [address] [place] Neutrophils/100 WBC (Bld) 85.3 % Normal [facility] Comment on above: Order Comment: Speci men Type: BLOOD SPECIMENOrdering Facility: [facility] Address: [address] [place] [address] Performed By: #### 5 7021-8 ####[facility] LABCLIA [id number] [place] [address] [place] Nucleated RBC (Bld) [#/Vol] 0.37 10*3/uL High <0.01 [facility] Comment on above: Order Comment: Speci men Type: BLOOD SPECIMENOrdering Facility: [facility] Address: [address] [place] [address] Performed By: #### 5 7021-8 ####[facility] LABCLIA [id number] [place] [address] [place] Nucleated RBC/100 WBC (Bld) [Ratio] 2.2 /100 WBC Normal [facility] Comment on above: Order Comment: Speci men Type: BLOOD SPECIMENOrdering Facility: [facility] Address: [address] [place] [address] Performed By: #### 5 7021-8 ####[facility] LABCLIA [id number] [place] [address] [place] Platelet mean volume (Bld) [Entitic vol] 10.8 fL Normal 9.0-12.7 [facility] Comment on above: Order Comment: Speci men Type: BLOOD SPECIMENOrdering Facility: [facility] Address: [address] [place] [address] Performed By: #### 5 7021-8 ####[facility] LABCLIA [id number] [place] [address] [place] Platelets (Bld) [#/Vol] 284 10*3/uL Normal 150-400 [facility] Comment on above: Order Comment: Speci men Type: BLOOD SPECIMENOrdering Facility: [facility] Address: [address] [place] [address] Performed By: #### 5 7021-8 ####[facility] LABCLIA [id number] [place] [address] [place] RBC (Bld) [#/Vol] 4.01 10*6/uL Normal 3.90-5.20 [facility] Comment on above: Order Comment: Speci men Type: BLOOD SPECIMENOrdering Facility: [facility] Address: [address] [place] [address] Performed By: #### 5 7021-8 ####[facility] LABCLIA [id number] [place] [address] [place] WBC (Bld) [#/Vol] 16.54 10*3/uL High 3.70-11.00 [facility] Comment on above: Order Comment: Speci men Type: BLOOD SPECIMENOrdering Facility: [facility] Address: [address] [place] [address] Performed By: #### 5 7021-8 ####[facility] LABCLIA [id number] [place] [address] [place] [facility] BACTERIA UR CULTon 09-29 [facility] BACTERIA UR CULT ORGANISM ID: 1 Abnormal [facility] BACTERIA UR CULT 10,000 -<50,000 CFU /ml Tracy glabrata [facility] BACTERIA UR CULT No susceptibility t esting done. [facility] Interpretation and review of laboratory results Abnormal [facility] Original Ordering Provider: ALICE MAN [facility] Comprehensive metabolic 2000 panelon 09-29-2024 Albumin [Mass/Vol] 3.5 g/dL Low 3.9-4.9 [facility] Comment on above: Order Comment: Speci men Type: BLOOD SPECIMENOrdering Facility: [facility] Address: [address] [place] [address] Performed By: #### 2 777-1, 3084-1, 21014-4, 80325-5 ####[facility] LABIA [id number] [place] [address] [place] ALP [Catalytic activity/Vol] 210 U/L High 34-123 [facility] Comment on above: Order Comment: Speci men Type: BLOOD SPECIMENOrdering Facility: [facility] Address: [address] [place] [address] Performed By: #### 2 777-1, 3084-1, 54549-0, 14915-4 ####[facility] LABIA [id number] [place] [address] [place] ALT [Catalytic activity/Vol] 66 U/L High 7-38 [facility] Comment on above: Order Comment: Speci men Type: BLOOD SPECIMENOrdering Facility: [facility] Address: [address] [place] [address] Performed By: #### 2 777-1, 3084-1, 58324-9, 41148-8 ####[facility] LABCLIA [id number] [address] [address] [place] Anion gap [Moles/Vol] 10 mmol/L Normal 8-15 [facility] Comment on above: Order Comment: Speci men Type: BLOOD SPECIMENOrdering Facility: [facility] Address: [address] [place] [address] Performed By: #### 2 777-1, 3084-1, 97617-1, 68042-5 ####[facility] LABCLIA [id number] [address] [address] [place] AST [Catalytic activity/Vol] 34 U/L Normal 13-35 [facility] Comment on above: Order Comment: Speci men Type: BLOOD SPECIMENOrdering Facility: [facility] Address: [address] [place], [place] [address] Performed By: #### 2 777-1, 3084-1, 24757-4, 99666-7 ####[facility] LABCLIA [id number] [address] [address] [place] Bilirubin [Mass/Vol] 0.7 mg/dL Normal 0.2-1.3 [facility] Comment on above: Order Comment: Speci men Type: BLOOD SPECIMENOrdering Facility: [facility] Address: [address] [place] [address] Performed By: #### 2 777-1, 3084-1, 41881-9, 11276-9 ####[facility] LABCLIA [id number] [address] [address] [place] Calcium [Mass/Vol] 8.9 mg/dL Normal 8.5-10.2 [facility] Comment on above: Order Comment: Speci men Type: BLOOD SPECIMENOrdering Facility: [facility] Address: [address] [place] [address] Performed By: #### 2 777-1, 3084-1, 53514-6, 59014-7 ####[facility] LABCLIA [id number] [address] [address] [place] Chloride [Moles/Vol] 100 mmol/L Normal 98-107 [facility] Comment on above: Order Comment: Speci men Type: BLOOD SPECIMENOrdering Facility: [facility] Address: [address] [place] [address] Performed By: #### 2 777-1, 3084-1, 50205-5, 54315-9 ####[facility] LABCLIA [id number] [place] [address] [place] CO2 [Moles/Vol] 30 mmol/L Normal 22-30 [facility] Comment on above: Order Comment: Speci men Type: BLOOD SPECIMENOrdering Facility: [facility] Address: [address] [place] [address] Performed By: #### 2 777-1, 3084-1, 23741-8, 15948-1 ####[facility] LABCLIA [id number] [place] [address] [place] Creatinine [Mass/Vol] 0.46 mg/dL Low 0.58-0.96 [facility] Comment on above: Order Comment: Speci men Type: BLOOD SPECIMENOrdering Facility: [facility] Address: [address] [place], [place] [address] Performed By: #### 2 777-1, 3084-1, 65838-3, 48807-0 ####[facility] LABCLIA [id number] [place] [address] [place] Creatinine and Glomerular filtration rate.predicted panel (S/P/Bld) 125 mL/min/1.73m??? Normal >=60 [facility] Comment on above: Order Comment: Speci men Type: BLOOD SPECIMENOrdering Facility: [facility] Address: [address] [place] [address] Result Comment: Adina mated Glomerular Filtration Rate (eGFR) is calculated using the 2020 CKD-EPI creatinine equation. This equation utilizes serum creatinine, sex, and age as parameters. The creatinine assay has traceable calibration to isotope dilution-mass spectrometry. Refer to KDIGO guidelines for clinical interpretation. In patients with unstable renal function, e.g. those with acute kidney injury, the eGFR may not accurately reflect actual GFR. Performed By: #### 2 777-1, 3084-1, 21655-1, 11506-4 ####[facility] LABIA [id number] [address] [address] [place] Glucose [Mass/Vol] 209 mg/dL High 74-99 [facility] Comment on above: Order Comment: Jeremie gomez Type: BLOOD SPECIMENOrdering Facility: [facility] Address: [address] [place] [address] Result Comment: The [place] [employer] (ADA) provides guidance for cutoff values for fasting glucose and random glucose. The ADA defines fasting as no caloric intake for at least 8 hours. Fasting plasma glucose results between 100 to 125 mg/dL indicate increased risk for diabetes (prediabetes).Fasting plasma glucose results greater than or equal to 126 mg/dL meet the criteria for diagnosis of diabetes. In the absence of unequivocal hyperglycemia, results should be confirmed by repeat testing. In a patient with classic symptoms of hyperglycemia or hyperglycemic crisis, random plasma glucose results greater than or equal to 200 mg/dL meet the criteria for diagnosis of diabetes.Reference: Standards of Medical Care in Diabetes 2016, [place] [employer]. Diabetes Care. 2016.39(Suppl 1). Performed By: #### 2 777-1, 3084-1, 48951-2, 08871-8 ####[facility] LABIA [id number] [address] [address] [place] Potassium [Moles/Vol] 4.2 mmol/L Normal 3.7-5.1 [facility] Comment on above: Order Comment: Speccorey men Type: BLOOD SPECIMENOrdering Facility: [facility] Address: [address] [place] [id number] Performed By: #### 2 777-1, 3084-1, 84644-4, 00313-3 ####[facility] LABIA [id number] [place] [address] [place] Protein [Mass/Vol] 6.5 g/dL Normal 6.3-8.0 [facility] Comment on above: Order Comment: Speci men Type: BLOOD SPECIMENOrdering Facility: [facility] Address: [address] [place] [address] Performed By: #### 2 777-1, 3084-1, 99018-4, 30765-9 ####[facility] [id number] [place] [address] [place] Sodium [Moles/Vol] 140 mmol/L Normal 136-144 [facility] Comment on above: Order Comment: Speci men Type: BLOOD SPECIMENOrdering Facility: [facility] Address: [address] [place] [address] Performed By: #### 2 777-1, 3084-1, 22185-4, 78976-3 ####[facility] [id number] [place] [address] [place] Urea nitrogen [Mass/Vol] 16 mg/dL Normal 7-21 [facility] Comment on above: Order Comment: Speci men Type: BLOOD SPECIMENOrdering Facility: [facility] Address: [address] [place] [address] Performed By: #### 2 777-1, 3084-1, 27220-7, 64786-1 ####[facility] [id number] [place] [address] [place] Magnesium SerPl-mCncon 09-29 Magnesium [Mass/Vol] 2.6 mg/dL High 1.7-2.3 [facility] Comment on above: Order Comment: Speci men Type: BLOOD SPECIMENOrdering Facility: [facility] Address: [address] [place] [address] Performed By: #### 2 777-1, 3084-1, 54059-7, 94278-5 ####[facility] LABCLIA [id number] [place] [address] [place] Phosphate SerPl-ncon 09-29 Phosphate [Mass/Vol] 3.2 mg/dL Normal 2.7-4.8 [facility] Comment on above: Order Comment: Speci men Type: BLOOD SPECIMENOrdering Facility: [facility] Address: [address] [place] [address] Performed By: #### 2 777-1, 3084-1, 92761-2, ####[facility] LABCLIA [id number] [place] [address] [place] [facility] Urate [Mass/Vol] 2.3 mg/dL Low 2.5-6.6 [facility] Comment on above: Order Comment: Speci men Type: BLOOD SPECIMENOrdering Facility: [facility] Address: [address] [place] [address] Performed By: #### 2 777-1, 3084-1, 78372-2, ####[facility] LABCLIA [id number] [place] [address] [place] CASE MANAGEMon 09-28-2024 CASE MANAGEM Normal [facility] CBC W Auto Differential pane l (Bld)on 09-28-2024 Basophils (Bld) [#/Vol] 0.04 10*3/uL Normal <0.11 [facility] Comment on above: Order Comment: Speci men Type: BLOOD SPECIMENOrdering Facility: [facility] Address: [address] [place] [address] Performed By: #### 5 7021-8 ####[facility] LABCLIA [id number] [address] [place] Basophils/100 WBC (Bld) 0.2 % Normal [facility] Comment on above: Order Comment: Speci men Type: BLOOD SPECIMENOrdering Facility: [facility] Address: [address] [place] [address] Performed By: #### 5 7021-8 ####[facility] LABCLIA [id number] [place] [address] [place] Differential cell count method Nom (Bld) Auto Normal [facility] Comment on above: Order Comment: Speci men Type: BLOOD SPECIMENOrdering Facility: [facility] Address: [address] [place] [address] Performed By: #### 5 7021-8 ####[facility] LABCLIA [id number] [place] [address] [place] Eosinophils (Bld) [#/Vol] 10*3/uL Normal <0.46 [facility] Comment on above: Order Comment: Speci men Type: BLOOD SPECIMENOrdering Facility: [facility] Address: [address] [place] [address] Performed By: #### 5 7021-8 ####[facility] LABCLIA [id number] [place] [address] [place] Eosinophils/100 WBC (Bld) 0.0 % Normal [facility] Comment on above: Order Comment: Speci men Type: BLOOD SPECIMENOrdering Facility: [facility] Address: [address] [place] [address] Performed By: #### 5 7021-8 ####[facility] LABCLIA [id number] [place] [address] [place] Erythrocyte distribution width (RBC) [Ratio] 18.3 % High 11.5-15.0 [facility] Comment on above: Order Comment: Speci men Type: BLOOD SPECIMENOrdering Facility: [facility] Address: [address] [place] [address] Performed By: #### 5 7021-8 ####[facility] LABCLIA [id number] [place] [address] [place] Hematocrit (Bld) [Volume fraction] 30.3 % Low 36.0-46.0 [facility] Comment on above: Order Comment: Speci men Type: BLOOD SPECIMENOrdering Facility: [facility] Address: [address] [place] [address] Performed By: #### 5 7021-8 ####[facility] LABCLIA [id number] [place] [address] [place] Hemoglobin (Bld) [Mass/Vol] 9.1 g/dL Low 11.5-15.5 [facility] Comment on above: Order Comment: Speci men Type: BLOOD SPECIMENOrdering Facility: [facility] Address: [address] [place] [address] Performed By: #### 5 7021-8 ####[facility] LABIA [id number] [place] [address] [place] Immature granulocytes (Bld) [#/Vol] 0.21 10*3/uL High <0.10 [facility] Comment on above: Order Comment: Speci men Type: BLOOD SPECIMENOrdering Facility: [facility] Address: [address] [place] [address] Performed By: #### 5 7021-8 ####[facility] LABIA [id number] [place] [address] [place] Immature granulocytes/100 WBC (Bld) 1.2 % Normal [facility] Comment on above: Order Comment: Speci men Type: BLOOD SPECIMENOrdering Facility: [facility] Address: [address] [place] [address] Performed By: #### 5 7021-8 ####[facility] LABIA [id number] [place] [address] [place] Lymphocytes (Bld) [#/Vol] 0.57 10*3/uL Low 1.00-4.00 [facility] Comment on above: Order Comment: Speci men Type: BLOOD SPECIMENOrdering Facility: [facility] Address: [address] [place] [address] Performed By: #### 5 7021-8 ####[facility] LABCLIA [id number] [place] [address] [place] Lymphocytes/100 WBC (Bld) 3.2 % Normal [facility] Comment on above: Order Comment: Speci men Type: BLOOD SPECIMENOrdering Facility: [facility] Address: [address] [place] [address] Performed By: #### 5 7021-8 ####[facility] LABCLIA [id number] [place] [address] [place] MCH (RBC) [Entitic mass] 23.1 pg Low 26.0-34.0 [facility] Comment on above: Order Comment: Speci men Type: BLOOD SPECIMENOrdering Facility: [facility] Address: [address] [place] [address] Performed By: #### 5 7021-8 ####[facility] LABIA [id number] [place] [address] [place] MCHC (RBC) [Mass/Vol] 30.0 g/dL Low 30.5-36.0 [facility] Comment on above: Order Comment: Speci men Type: BLOOD SPECIMENOrdering Facility: [facility] Address: [address] [place] [address] Performed By: #### 5 7021-8 ####[facility] LABCLIA [id number] [place] [address] [place] MCV (RBC) [Entitic vol] 76.9 fL Low 80.0-100.0 [facility] Comment on above: Order Comment: Speci men Type: BLOOD SPECIMENOrdering Facility: [facility] Address: [address] [place] [address] Performed By: #### 5 7021-8 ####[facility] LABCLIA [id number] [place] [address] [place] Monocytes (Bld) [#/Vol] 1.56 10*3/uL High <0.87 [facility] Comment on above: Order Comment: Speci men Type: BLOOD SPECIMENOrdering Facility: [facility] Address: [address] [place] [address] Performed By: #### 5 7021-8 ####[facility] LABCLIA [id number] [place] [address] [place] Monocytes/100 WBC (Bld) 8.8 % Normal [facility] Comment on above: Order Comment: Speci men Type: BLOOD SPECIMENOrdering Facility: [facility] Address: [address] [place] [address] Performed By: #### 5 7021-8 ####[facility] LABCLIA [id number] [place] [address] [place] Neutrophils (Bld) [#/Vol] 15.27 10*3/uL High 1.45-7.50 [facility] Comment on above: Order Comment: Speci men Type: BLOOD SPECIMENOrdering Facility: [facility] Address: [address] [place] [address] Performed By: #### 5 7021-8 ####[facility] LABCLIA [id number] [place] [address] [place] Neutrophils/100 WBC (Bld) 86.6 % Normal [facility] Comment on above: Order Comment: Speci men Type: BLOOD SPECIMENOrdering Facility: [facility] Address: [address] [place] [address] Performed By: #### 5 7021-8 ####[facility] LABCLIA [id number] [place] [address] [place] Nucleated RBC (Bld) [#/Vol] 0.12 10*3/uL High <0.01 [facility] Comment on above: Order Comment: Speci men Type: BLOOD SPECIMENOrdering Facility: [facility] Address: [address] [place] [address] Performed By: #### 5 7021-8 ####[facility] LABCLIA [id number] [place] [address] [place] Nucleated RBC/100 WBC (Bld) [Ratio] 0.7 /100 WBC Normal [facility] Comment on above: Order Comment: Speci men Type: BLOOD SPECIMENOrdering Facility: [facility] Address: [address] [place] [address] Performed By: #### 5 7021-8 ####[facility] LABCLIA [id number] [place] [address] [place] Platelet mean volume (Bld) [Entitic vol] 10.5 fL Normal 9.0-12.7 [facility] Comment on above: Order Comment: Speci men Type: BLOOD SPECIMENOrdering Facility: [facility] Address: [address] [place] [address] Performed By: #### 5 7021-8 ####[facility] LABIA [id number] [place] [address] [place] Platelets (Bld) [#/Vol] 286 10*3/uL Normal 150-400 [facility] Comment on above: Order Comment: Speci men Type: BLOOD SPECIMENOrdering Facility: [facility] Address: [address] [place] [address] Performed By: #### 5 7021-8 ####[facility] LABCLIA [id number] [place] [address] [place] RBC (Bld) [#/Vol] 3.94 10*6/uL Normal 3.90-5.20 [facility] Comment on above: Order Comment: Speci men Type: BLOOD SPECIMENOrdering Facility: [facility] Address: [address] [place] [address] Performed By: #### 5 7021-8 ####[facility] LABCLIA [id number] [address] [address] [place] WBC (Bld) [#/Vol] 17.65 10*3/uL High 3.70-11.00 [facility] Comment on above: Order Comment: Speci men Type: BLOOD SPECIMENOrdering Facility: [facility] Address: [address] [place] [address] Performed By: #### 5 7021-8 ####[facility] LABCLIA [id number] [address] [address] [place] Comprehensive metabolic 2000 panelon 09-28-2024 Albumin [Mass/Vol] 3.3 g/dL Low 3.9-4.9 [facility] Comment on above: Order Comment: Speci men Type: BLOOD SPECIMENOrdering Facility: [facility] Address: [address] [place] [address] Performed By: #### 2 4323-8, 2777-1, 308-1, 92677-4 ####[facility] LABIA [id number] [place] [address] [place] ALP [Catalytic activity/Vol] 184 U/L High 34-123 [facility] Comment on above: Order Comment: Speci men Type: BLOOD SPECIMENOrdering Facility: [facility] Address: [address] [place], [place] [address] Performed By: #### 2 4323-8, 2777-1, 3084-1, 41403-4 ####[facility] LABCLIA [id number] [address] [address] [place] ALT [Catalytic activity/Vol] 68 U/L High 7-38 [facility] Comment on above: Order Comment: Speci men Type: BLOOD SPECIMENOrdering Facility: [facility] Address: [address] [place], [place] [address] Performed By: #### 2 4323-8, 2777-1, 308-1, ####[facility] LABCLIA [id number] [place] [address] [place] Anion gap [Moles/Vol] 13 mmol/L Normal 8-15 [facility] Comment on above: Order Comment: Speci men Type: BLOOD SPECIMENOrdering Facility: [facility] Address: [address] [place] [address] Performed By: #### 2 4323-8, 2777-1, 3083-1, ####[facility] LABCLIA [id number] [place] [address] [place] AST [Catalytic activity/Vol] 54 U/L High 13-35 [facility] Comment on above: Order Comment: Speci men Type: BLOOD SPECIMENOrdering Facility: [facility] Address: [address] [place], [place] [address] Performed By: #### 2 4323-8, 2777-1, 3083-1, ####[facility] LABCLIA [id number] [place] [address] [place] Bilirubin [Mass/Vol] 0.8 mg/dL Normal 0.2-1.3 [facility] Comment on above: Order Comment: Speci men Type: BLOOD SPECIMENOrdering Facility: [facility] Address: [address] [place], [place] [address] Performed By: #### 2 4323-8, 2777-1, 3083-1, ####[facility] LABCLIA [id number] [place] [address] [place] Calcium [Mass/Vol] 8.9 mg/dL Normal 8.5-10.2 [facility] Comment on above: Order Comment: Speci men Type: BLOOD SPECIMENOrdering Facility: [facility] Address: [address] [place], [place] [address] Performed By: #### 2 4323-8, 2777-1, 308-1, ####[facility] LABCLIA [id number] [place] [address] [place] Chloride [Moles/Vol] 98 mmol/L Normal 98-107 [facility] Comment on above: Order Comment: Speci men Type: BLOOD SPECIMENOrdering Facility: [facility] Address: [address] [place] [address] Performed By: #### 2 4323-8, 2777-1, 3083-1, ####[facility] LABCLIA [id number] [place] [address] [place] CO2 [Moles/Vol] 26 mmol/L Normal 22-30 [facility] Comment on above: Order Comment: Speci men Type: BLOOD SPECIMENOrdering Facility: [facility] Address: [address] [place] [address] Performed By: #### 2 4323-8, 2777-1, 3083-, ####[facility] LABCLIA [id number] [place] [address] [place] Creatinine [Mass/Vol] 0.51 mg/dL Low 0.58-0.96 [facility] Comment on above: Order Comment: Speci men Type: BLOOD SPECIMENOrdering Facility: [facility] Address: [address] [place] [address] Performed By: #### 2 4323-8, 2777-1, 3083-, ####[facility] LABCLIA [id number] [place] [address] [place] Creatinine and Glomerular filtration rate.predicted panel (S/P/Bld) 122 mL/min/1.73m??? Normal >=60 [facility] Comment on above: Order Comment: Jeremie gomez Type: BLOOD SPECIMENOrdering Facility: [facility] Address: [address] [place] [address] Result Comment: Adina mated Glomerular Filtration Rate (eGFR) is calculated using the 2020 CKD-EPI creatinine equation. This equation utilizes serum creatinine, sex, and age as parameters. The creatinine assay has traceable calibration to isotope dilution-mass spectrometry. Refer to KDIGO guidelines for clinical interpretation. In patients with unstable renal function, e.g. those with acute kidney injury, the eGFR may not accurately reflect actual GFR. Performed By: #### 2 4323-8, 2777-1, 3083-1, ####[facility] LABCLIA [id number] [place] [address] [place] Glucose [Mass/Vol] 199 mg/dL High 74-99 [facility] Comment on above: Order Comment: Jeremie gomez Type: BLOOD SPECIMENOrdering Facility: [facility] Address: [address] [place] [address] Result Comment: The [place] [employer] (ADA) provides guidance for cutoff values for fasting glucose and random glucose. The ADA defines fasting as no caloric intake for at least 8 hours. Fasting plasma glucose results between 100 to 125 mg/dL indicate increased risk for diabetes (prediabetes).Fasting plasma glucose results greater than or equal to 126 mg/dL meet the criteria for diagnosis of diabetes. In the absence of unequivocal hyperglycemia, results should be confirmed by repeat testing. In a patient with classic symptoms of hyperglycemia or hyperglycemic crisis, random plasma glucose results greater than or equal to 200 mg/dL meet the criteria for diagnosis of diabetes.Reference: Standards of Medical Care in Diabetes 2016, [place] [employer]. Diabetes Care. 2016.39(Suppl 1). Performed By: #### 2 4323-8, 2777-1, 3083-, ####[facility] LABCLIA [id number] [place] [address] [place] Potassium [Moles/Vol] 4.4 mmol/L Normal 3.7-5.1 [facility] Comment on above: Order Comment: Speci men Type: BLOOD SPECIMENOrdering Facility: [facility] Address: [address] [place], [place] [address] Performed By: #### 2 4323-8, 2777-1, 3083-10, ####[facility] LABIA [id number] [address] [address] [place] Protein [Mass/Vol] 6.6 g/dL Normal 6.3-8.0 [facility] Comment on above: Order Comment: Speci men Type: BLOOD SPECIMENOrdering Facility: [facility] Address: [address] [place] [address] Performed By: #### 2 4323-8, 2777-1, 3083-10, ####[facility] LABIA [id number] [place] [address] [place] Sodium [Moles/Vol] 137 mmol/L Normal 136-144 [facility] Comment on above: Order Comment: Speci men Type: BLOOD SPECIMENOrdering Facility: [facility] Address: [address] [place] [address] Performed By: #### 2 4323-8, 2777-1, 3083-10, ####[facility] LABIA [id number] [address] [address] [place] Urea nitrogen [Mass/Vol] 16 mg/dL Normal 7-21 [facility] Comment on above: Order Comment: Speci men Type: BLOOD SPECIMENOrdering Facility: [facility] Address: [address] [place] [address] Performed By: #### 2 4323-8, 2777-1, 3083-10, ####[facility] LABIA [id number] [address] [address] [place] ECHO LIMITEDon 09-28-2024 ECHO LIMITED Normal [facility] Magnesium SerPl-mCncon 09-28 Magnesium [Mass/Vol] 2.5 mg/dL High 1.7-2.3 [facility] Comment on above: Order Comment: Speci men Type: BLOOD SPECIMENOrdering Facility: [facility] Address: [address] [place] [address] Performed By: #### 2 4323-8, 2777-1, 308-1, ####[facility] LABCLIA [id number] [place] [address] [place] Phosphate SerPl-mCncon 09-28 Phosphate [Mass/Vol] 2.9 mg/dL Normal 2.7-4.8 [facility] Comment on above: Order Comment: Speci men Type: BLOOD SPECIMENOrdering Facility: [facility] Address: [address] [place] [address] Performed By: #### 2 4323-8, 2777-1, 3083-, ####[facility] LABCLIA [id number] [place] [address] [place] THERAPY NTon 09-28-2024 THERAPY NT Normal [facility] Urate SerPl-ncon 4 Urate [Mass/Vol] 2.1 mg/dL Low 2.5-6.6 [facility] Comment on above: Order Comment: Speci men Type: BLOOD SPECIMENOrdering Facility: [facility] Address: [address] [place] [address] Performed By: #### 2 4323-8, 2777-1, 308-, ####[facility] LABCLIA [id number] [place] [address] [place] Bacteria Ur Culton 4 Bacteria identified Cx Nom (U) ORGANISM ID: 1 10,000 -<50,000 CFU/ml Tracy glabrata No susceptibility testing done. Normal [facility] Comment on above: Performed By: #### 6 30-4 ####[facility] LABCLIA [id number] [place] [address] [place] CASE MGT INIT ASSESon 2023 CASE MGT INIT ASSES Normal [facility] Comprehensive metabolic 2000 panelon 09-27-2024 Albumin [Mass/Vol] 3.7 g/dL Low 3.9-4.9 [facility] Comment on above: Order Comment: Speci men Type: BLOOD SPECIMENOrdering Facility: [facility] Address: [address] [place] [address] Performed By: #### 1 9123-9, 3084-1, 11721-3, 2777-1 ####[facility] LABIA [id number] [place] [address] [place] ALP [Catalytic activity/Vol] 198 U/L High 34-123 [facility] Comment on above: Order Comment: Speci men Type: BLOOD SPECIMENOrdering Facility: [facility] Address: [address] [place] [address] Performed By: #### 1 9123-9, 3084-1, 81018-7, 2777-1 ####[facility] [id number] [place] [address] [place] ALT [Catalytic activity/Vol] 51 U/L High 7-38 [facility] Comment on above: Order Comment: Speci men Type: BLOOD SPECIMENOrdering Facility: [facility] Address: [address] [place] [address] Performed By: #### 1 9123-9, 3084-1, 11045-2, 2777-1 ####[facility] LABIA [id number] [place] [address] [place] Anion gap [Moles/Vol] 20 mmol/L High 8-15 [facility] Comment on above: Order Comment: Speci men Type: BLOOD SPECIMENOrdering Facility: [facility] Address: [address] [place] [address] Performed By: #### 1 9123-9, 3084-1, 84555-5, 2777- ####[facility] LABCLIA [id number] [place] [address] [place] AST [Catalytic activity/Vol] 53 U/L High 13-35 [facility] Comment on above: Order Comment: Speci men Type: BLOOD SPECIMENOrdering Facility: [facility] Address: [address] [place] [address] Performed By: #### 1 9123-9, 3084-1, 07912-2, 277- ####[facility] LABCLIA [id number] [place] [address] [place] Bilirubin [Mass/Vol] 1.1 mg/dL Normal 0.2-1.3 [facility] Comment on above: Order Comment: Speci men Type: BLOOD SPECIMENOrdering Facility: [facility] Address: [address] [place] [address] Performed By: #### 1 9123-9, 3084-1, 12232-0, 277- ####[facility] LABIA [id number] [place] [address] [place] Calcium [Mass/Vol] 9.1 mg/dL Normal 8.5-10.2 [facility] Comment on above: Order Comment: Speci men Type: BLOOD SPECIMENOrdering Facility: [facility] Address: [address] [place] [address] Performed By: #### 1 9123-9, 3084-1, 90499-9, 2777- ####[facility] LABIA [id number] [place] [address] [place] Chloride [Moles/Vol] 97 mmol/L Low 98-107 [facility] Comment on above: Order Comment: Speci men Type: BLOOD SPECIMENOrdering Facility: [facility] Address: [address] [place] [address] Performed By: #### 1 9123-9, 3084-1, 37466-7, 2777-1 ####[facility] LABIA [id number] [place] [address] [place] HCG Preg Ur Qlon 09-27-2024 HCG ( test) Ql (U) Negative Normal Negative [facility] Comment on above: Order Comment: Speci men Type: URINE SPECIMENOrdering Facility: [facility] Address: [address] [place] [address] Result Comment: This test is intended to aid in the early detection of . Very dilute urine samples, as indicated by a low specific gravity, may not contain entry level account representative levels of hCG. This test detects intact hCG only. This test does not reliably detect hCG degradation products, including free-beta subunit and beta-core fragment. Therefore, this test may show reduced reactivity in urine after 8 weeks gestation. A number of conditions other than , including trophoblastic disease and certain non-trophoblastic neoplasms cause elevated levels of hCG. As with any assay employing mouse antibodies, the possibility exists for interference by human anti-mouse antibodies (HAMA) in the specimen. The test provides a presumptive diagnosis for . Performed By: #### 2 106-3 ####[facility] LABIA [id number] [place] [address] [place] MEDICAL EMERon 09-27-2024 MEDICAL AURE Normal [facility] NURSING PROGon 09-27-2024 NURSING PROG Normal [facility] Phosphate SerPl-mCncon 09-27 Phosphate [Mass/Vol] 2.9 mg/dL Normal 2.7-4.8 [facility] Comment on above: Order Comment: Speci men Type: BLOOD SPECIMENOrdering Facility: [facility] Address: [address] [place] [address] Performed By: #### 3 084-1, 2777-1 ####[facility] LABIA [id number] [place] [address] [place] SOCIAL WORKon 09-27-2024 SOCIAL WORK Normal [facility] THERAPY NTon 09-27-2024 THERAPY NT Normal [facility] URINALYSIS, REFLEX MICROSCOP ICon 09-27-2024 Bacteria LM.HPF (Urine sed) [#/Area] Few Abnormal Negative [facility] Comment on above: Order Comment: Speci men Type: URINE SPECIMENOrdering Facility: [facility] Address: [address] [place] [address] Performed By: #### L [id number] ####[facility] LABCLIA [id number] [place] [address] [place] Bilirubin Ql (U) Negative Normal Negative [facility] Comment on above: Order Comment: Speci men Type: URINE SPECIMENOrdering Facility: [facility] Address: [address] [place] [address] Performed By: #### L [id number] ####[facility] LABCLIA [id number] [place] [address] [place] Clarity (Unsp spec) Clear Normal Clear [facility] Comment on above: Order Comment: Speci men Type: URINE SPECIMENOrdering Facility: [facility] Address: [address] [place] [address] Performed By: #### L [id number] ####[facility] LABCLIA [id number] [place] [address] [place] Color (U) Dark Yellow Abnormal Yellow [facility] Comment on above: Order Comment: Speci men Type: URINE SPECIMENOrdering Facility: [facility] Address: [address] [place] [address] Performed By: #### L [id number] ####[facility] LABCLIA [id number] [place] [address] [place] Epithelial cells LM.HPF (Urine sed) [#/Area] Few Normal [facility] Comment on above: Order Comment: Speci men Type: URINE SPECIMENOrdering Facility: [facility] Address: [address] [place] [address] Performed By: #### L [id number] ####[facility] LABCLIA [id number] [place] [address] [place] Glucose Test strip (U) [Mass/Vol] Negative Normal Negative [facility] Comment on above: Order Comment: Speci men Type: URINE SPECIMENOrdering Facility: [facility] Address: [address] [place] [address] Performed By: #### L [id number] ####[facility] LABCLIA [id number] [place] [address] [place] Hemoglobin Ql (U) Negative Normal Negative [facility] Comment on above: Order Comment: Speci men Type: URINE SPECIMENOrdering Facility: [facility] Address: [address] [place] [address] Performed By: #### L [id number] ####[facility] LABCLIA [id number] [place] [address] [place] Hyaline casts (Urine sed) [#/Area] 0 /[LPF] Normal 0 /LPF [facility] Comment on above: Order Comment: Speci men Type: URINE SPECIMENOrdering Facility: [facility] Address: [address] [place] [address] Performed By: #### L [id number] ####[facility] LABCLIA [id number] [place] [address] [place] Ketones Ql (U) Negative Normal Negative [facility] Comment on above: Order Comment: Speci men Type: URINE SPECIMENOrdering Facility: [facility] Address: [address] [place] [address] Performed By: #### L [id number] ####[facility] LABCLIA [id number] [place] [address] [place] Leukocyte esterase Test strip Ql (U) Negative Normal Negative [facility] Comment on above: Order Comment: Speci men Type: URINE SPECIMENOrdering Facility: [facility] Address: [address] [place] [address] Performed By: #### L [id number] ####[facility] LABCLIA [id number] [place] [address] [place] Nitrite Ql (U) Negative Normal Negative [facility] Comment on above: Order Comment: Speci men Type: URINE SPECIMENOrdering Facility: [facility] Address: [address] [place] [address] Performed By: #### L [id number] ####[facility] LABIA [id number] [place] [address] [place] pH (U) 5.5 [pH] Normal <8.5 [facility] Comment on above: Order Comment: Speci men Type: URINE SPECIMENOrdering Facility: [facility] Address: [address] [place] [address] Performed By: #### L [id number] ####[facility] LABIA [id number] [place] [address] [place] Protein (U) [Mass/Vol] 1+ Abnormal Negative [facility] Comment on above: Order Comment: Speci men Type: URINE SPECIMENOrdering Facility: [facility] Address: [address] [place] [address] Performed By: #### L [id number] ####[facility] LABIA [id number] [place] [address] [place] RBC LM.HPF (Urine sed) [#/Area] 0-2 /HPF Normal 0-2 /HPF [facility] Comment on above: Order Comment: Speci men Type: URINE SPECIMENOrdering Facility: [facility] Address: [address] [place] [address] Performed By: #### L [id number] ####[facility] LABIA [id number] [place] [address] [place] Specific gravity (U) [Rel density] >1.045 High 1.005-1.030 [facility] Comment on above: Order Comment: Speci men Type: URINE SPECIMENOrdering Facility: [facility] Address: [address] [place] [address] Performed By: #### L [id number] ####[facility] LABIA [id number] [place] [address] [place] Urobilinogen Ql (U) 0.2 EU/dL Normal 0.2-1.0 EU/dL [facility] Comment on above: Order Comment: Speci men Type: URINE SPECIMENOrdering Facility: [facility] Address: [address] [place] [address] Performed By: #### L [id number] ####[facility] LABIA [id number] [place] [address] [place] WBC LM.HPF (Urine sed) [#/Area] 0-5 /HPF Normal 0-5 /HPF [facility] Comment on above: Order Comment: Speci men Type: URINE SPECIMENOrdering Facility: [facility] Address: [address] [place] [address] Performed By: #### L [id number] ####[facility] LABIA [id number] [place] [address] [place] Urate SerPl-mCncon Urate [Mass/Vol] 2.5 mg/dL Normal 2.5-6.6 [facility] Comment on above: Order Comment: Speci men Type: BLOOD SPECIMENOrdering Facility: [facility] Address: [address] [place] [address] Performed By: #### 3 [id number] ####[facility] LABIA [id number] [place] [address] [place] ALL CBC WITH AUTO DIFFon Erythrocyte distribution width (RBC) [Ratio] 18.2 % High 11.0 - 15.0 % [facility] Hematocrit (Bld) [Volume fraction] 33 % Low 36.0 - 48.0 % [facility] Hemoglobin (Bld) [Mass/Vol] 9.9 g/dL Low 12.0 - 16.0 g/dL [facility] Interpretation and review of laboratory results Abnormal [facility] MCH (RBC) [Entitic mass] 23.2 pg Low 26.7 - 34.0 pg [facility] MCHC (RBC) [Mass/Vol] 30 g/dL 29.9 - 35.2 g/dL [facility] MCV (RBC) [Entitic vol] 77.3 fL Low 81.0 - 99.0 fL [facility] Platelet mean volume (Bld) [Entitic vol] 9.9 fL 9.5 - 13.5 fL [facility] PLT 334 [facility] RBC 4.27 [facility] WBC 6.2 [facility] ALL CBC WITH AUTO DIFFon Erythrocyte distribution width (RBC) [Ratio] 17.7 % High 11.0 - 15.0 % [facility] Hematocrit (Bld) [Volume fraction] 34.1 % Low 36.0 - 48.0 % [facility] Hemoglobin (Bld) [Mass/Vol] 10.3 g/dL Low 12.0 - 16.0 g/dL [facility] Interpretation and review of laboratory results Abnormal [facility] MCH (RBC) [Entitic mass] 23.6 pg Low 26.7 - 34.0 pg [facility] MCHC (RBC) [Mass/Vol] 30.2 g/dL 29.9 - 35.2 g/dL [facility] MCV (RBC) [Entitic vol] 78 fL Low 81.0 - 99.0 fL [facility] Platelet mean volume (Bld) [Entitic vol] 10 fL 9.5 - 13.5 fL [facility] PLT 444 [facility] RBC 4.37 [facility] WBC 5.1 [facility] WITH AUTO DIFFon BASOPHILS ABSOLUTE AUTO 0 [facility] Basophils/100 WBC (Bld) 0.1 % Low 0.2 - 2.0 % [facility] Eosinophils/100 WBC (Bld) 0.5 % Low 0.9 - 7.0 % [facility] Erythrocyte distribution width (RBC) [Ratio] 17.4 % High 11.0 - 15.0 % [facility] Hematocrit (Bld) [Volume fraction] 33.9 % Low 36.0 - 48.0 % [facility] Hemoglobin (Bld) [Mass/Vol] 10.3 g/dL Low 12.0 - 16.0 g/dL [facility] IMMATURE GRANULOCYTES ABS AUTO 0.02 [facility] Immature granulocytes/100 WBC (Bld) 0.2 % 0.0 - 0.5 % [facility] Interpretation and review of laboratory results Abnormal [facility] LYMPHOCYTES ABSOLUTE AUTO 0.5 Low [facility] Lymphocytes/100 WBC (Bld) 6 % Low 20.5 - 60.0 % [facility] MCH (RBC) [Entitic mass] 23.8 pg Low 26.7 - 34.0 pg [facility] MCHC (RBC) [Mass/Vol] 30.4 g/dL 29.9 - 35.2 g/dL [facility] MCV (RBC) [Entitic vol] 78.5 fL Low 81.0 - 99.0 fL [facility] MONOCYTES ABSOLUTE AUTO 0.7 [facility] Monocytes/100 WBC (Bld) 8.6 % 1.7 - 12.0 % [facility] NEUTROPHILS ABSOLUTE AUTO 7.3 High [facility] Neutrophils/100 WBC (Bld) 84.6 % High 43.0 - 75.0 % [facility] Platelet mean volume (Bld) [Entitic vol] 10.2 fL 9.5 - 13.5 fL [facility] EO # 0 [facility] PLT 336 [facility] RBC 4.32 [facility] WBC 8.6 [facility]IS[facility]NC [facility] GLUCOSE CSF-MCNCon 09-06 [facility] GLUCOSE CSF-NC 63 mg/dL 40 - 70 mg/dL [facility] Comment on above: Lumbar CSF glucose v alues of healthy patients are approximately 60% of the plasma values and must always be compared with a concurrently measured plasma value for adequate clinical interpretation. References: 1. Glucose HK (GLUC3) [package insert V 12.0 [place]]. [facility], [place], [place]. February 2016. 2. Carmine Mcfarland, Emmett, H. (2015). Chapter 7: Glucose and Lactate. Anthony Dick et al.(eds.), Cerebrospinal Fluid in Clinical Neurology. [place]: [employer]. [facility] PROT CSF-MCNCon 09-06-20 24 [facility] PROT CSF-MCNC 19 mg/dL 15 - 45 mg/dL [facility] Cell count panel (CSF)Ordere d By: Laly Finney on 09-06-2024 Clarity (CSF) Clear Clear [facility] Clarity (Unsp spec) Not Indicated Clear [facility] Color (CSF) Colorless Colorless [facility] Color (Spun CSF) Not Indicated Colorless [facility] CSF Tube Number Tube 1 [facility] RBC Manual cnt (CSF) [#/Vol] 0 [facility] WBC Manual cnt (CSF) [#/Vol] 0 [facility] GLUCOSE CSFon 09-06-2024 Glucose (CSF) [Mass/Vol] 63 mg/dL 40 - 70 mg/dL [facility] Comment on above: Lumbar CSF glucose v alues of healthy patients are approximately 60% of the plasma values and must always be compared with a concurrently measured plasma value for adequate clinical interpretation. References: 1. Glucose HK (GLUC3) [package insert V 12.0 [place]]. [facility], [place], [place]. February 2016. 2. Carmine Mcfarland, Emmett, H. (2015). Chapter 7: Glucose and Lactate. Anthony Dick et al.(eds.), Cerebrospinal Fluid in Clinical Neurology. [place]: [employer]. No Panel Informationon 09-06 Interpretation and review of laboratory results Normal [facility] Specimen Type: CEREBROSPINAL FLUID SPECIMEN Ordering [facility]: [facility] Address: [address] [place] [address] Original Ordering Provider: MARCELINA MAN [facility] PROTEIN CSFon 09-06-2024 Protein (CSF) [Mass/Vol] 19 mg/dL 15 - 45 mg/dL [facility] ALL CBC WITH AUTO DIFFon BASOPHILS ABSOLUTE AUTO 0 [facility] Basophils/100 WBC (Bld) 0.1 % Low 0.2 - 2.0 % [facility] Eosinophils/100 WBC (Bld) 0.1 % Low 0.9 - 7.0 % [facility] Erythrocyte distribution width (RBC) [Ratio] 17.4 % High 11.0 - 15.0 % [facility] Hematocrit (Bld) [Volume fraction] 34.3 % Low 36.0 - 48.0 % [facility] Hemoglobin (Bld) [Mass/Vol] 10.5 g/dL Low 12.0 - 16.0 g/dL [facility] IMMATURE GRANULOCYTES ABS AUTO 0.03 [facility] Immature granulocytes/100 WBC (Bld) 0.3 % 0.0 - 0.5 % [facility] LYMPHOCYTES ABSOLUTE AUTO 0.6 Low [facility] Lymphocytes/100 WBC (Bld) 6.5 % Low 20.5 - 60.0 % [facility] MCH (RBC) [Entitic mass] 24.1 pg Low 26.7 - 34.0 pg [facility] MCHC (RBC) [Mass/Vol] 30.6 g/dL 29.9 - 35.2 g/dL [facility] MCV (RBC) [Entitic vol] 78.7 fL Low 81.0 - 99.0 fL [facility] MONOCYTES ABSOLUTE AUTO 0.8 [facility] Monocytes/100 WBC (Bld) 8.1 % 1.7 - 12.0 % [facility] NEUTROPHILS ABSOLUTE AUTO 7.9 High [facility] Neutrophils/100 WBC (Bld) 84.9 % High 43.0 - 75.0 % [facility] Platelet mean volume (Bld) [Entitic vol] 11.1 fL 9.5 - 13.5 fL [facility] TBH EO # 0 [facility] PLT 322 [facility] RBC 4.36 [facility] WBC 9.3 [facility] CMP (CMP) (FOR REMOTE FH C USE)on 09-01-2024 Albumin [Mass/Vol] 2.8 g/dL Low 3.4 - 5.0 g/dL [facility] ALBUMIN GLOBULIN RATIO 0.6 [facility] ALP [Catalytic activity/Vol] 262 U/L High 46 - 116 U/L [facility] ALT [Catalytic activity/Vol] 57 U/L 14 - 59 U/L [facility] Anion gap [Moles/Vol] 13.2 mmol/L [facility] AST [Catalytic activity/Vol] 33 U/L 15 - 37 U/L [facility] Bilirubin [Mass/Vol] 0.7 mg/dL 0.2 - 1 .0 mg/dL [facility] Calcium [Mass/Vol] 9.5 mg/dL 8.5 - 10. 1 mg/dL [facility] Chloride [Moles/Vol] 104 mmol/L 98 - 10 7 mmol/L [facility] CO2 [Moles/Vol] 28 mmol/L 21.0 - 32.0 mmol/L [facility] Creatinine [Mass/Vol] 0.69 mg/dL 0.55 - 1.02 mg/dL [facility] GFR/1.73 sq M.predicted CKD-EPI (S/P/Bld) [Vol rate/Area] >60 >=60 mL/min/1.73m 2 [facility] Globulin (S) [Mass/Vol] 4.6 g/dL [facility] Glucose [Mass/Vol] 119 mg/dL High 74 - 106 mg/dL [facility] Potassium [Moles/Vol] 4.2 mmol/L 3.5 - 5.1 mmol/L [facility] Protein [Mass/Vol] 7.4 g/dL 6.4 - 8.2 g/dL [facility] Sodium [Moles/Vol] 141 mmol/L 136 - 145 mmol/L [facility] TBH EGFR-NON AF GUINEAN >60 >=60 mL/min/1.73m 2 [facility] Urea nitrogen [Mass/Vol] 14 mg/dL 7.0 - 18.0 mg/dL [facility] Urea nitrogen/Creatinine [Mass ratio] 20.3 mg/mg [facility] No Panel Informationon 09-01 Interpretation and review of laboratory results Abnormal [facility] GLUCOSE, BLOOD (POC)on 08-27 Glucose [Mass/Vol] 85 mg/dL 74 - 99 mg/dL [facility] Comment on above: Location:[facility], [address] [place] [address], [facility] The Accu-Chek Inform II glucose meter has not been approved for testing on patients receiving intensive medical intervention or therapy and results from this point of care glucose test should not be used for patient management decisions in these cases. Inaccurate results may also occur from other interfering factors, such as N-acetylcysteine (blood concentrations of greater than 5mg/dL), galactose, extremes of hematocrit (<10 or >65), or high doses of ascorbic acid (vitamin C) greater than 3mg/dL. Consider alternate testing mechanisms (e.g. core lab, blood gas instrument) in the above situations. [facility] ALL CBC WITH AUTO DIFFon BASOPHILS ABSOLUTE AUTO 0 [facility] Basophils/100 WBC (Bld) 0.6 % 0.2 - 2.0 % [facility] Eosinophils/100 WBC (Bld) 2.2 % 0.9 - 7.0 % [facility] Erythrocyte distribution width (RBC) [Ratio] 17.7 % High 11.0 - 15.0 % [facility] Hematocrit (Bld) [Volume fraction] 40.2 % 36.0 - 48.0 % [facility] Hemoglobin (Bld) [Mass/Vol] 12.1 g/dL 12.0 - 16.0 g/dL [facility] IMMATURE GRANULOCYTES ABS AUTO 0.03 [facility] Immature granulocytes/100 WBC (Bld) 0.9 % High 0.0 - 0.5 % [facility] Interpretation and review of laboratory results Abnormal [facility] LYMPHOCYTES ABSOLUTE AUTO 0.6 Low [facility] Lymphocytes/100 WBC (Bld) 20.1 % Low 20.5 - 60.0 % [facility] MCH (RBC) [Entitic mass] 24.1 pg Low 26.7 - 34.0 pg [facility] MCHC (RBC) [Mass/Vol] 30.1 g/dL 29.9 - 35.2 g/dL [facility] MCV (RBC) [Entitic vol] 79.9 fL Low 81.0 - 99.0 fL [facility] MONOCYTES ABSOLUTE AUTO 0.5 [facility] Monocytes/100 WBC (Bld) 16.9 % High 1.7 - 12.0 % [facility] NEUTROPHILS ABSOLUTE AUTO 1.9 [facility] Neutrophils/100 WBC (Bld) 59.3 % 43.0 - 75.0 % [facility] Platelet mean volume (Bld) [Entitic vol] 10.8 fL 9.5 - 13.5 fL [facility] TBH EO # 0.1 [facility] PLT 423 [facility] TB RBC 5.03 [facility] TB WBC 3.2 Low [facility] BONE MARROW CHROMOSOME A NALon 08-24-2024 [facility] CHROMOSOME BM [facility] Comment on above: Laboratory Accession Number: [id number] Doctor: Marcelina Rangel Pathologist: [facility] No: [id number] Clinical diagnosis: T-cell lymphoblastic lymphoma Specimen Type: Bone marrow Received Date: 08/17/2024 Number of cells counted: 20 Number of cells analyzed: 20 Number of cells karyotyped: 20 Banding resolution: 425 Banding method: G-banding DIAGNOSIS: 46,XX[20] INTERPRETATION: Normal, female karyotype COMMENT: Ten metaphase cells were analyzed from the culture stimulated with ODN and ten metaphase cells were analyzed from the 24 hour unstimulated culture. Twenty cells analyzed showed a 46,XX karyotype. There was no significant numerical chromosome abnormality and no structural change detected within the limits of resolution. The analysis in April 2024 also showed a normal karyotype. Clinical and pathologic correlation is recommended. As reviewed by Judy Geiger, PhD, FACMG Performed by [facility] Molecular Pathology and Cytogenomics ([id number]), Division of Laboratory Medicine Davy Viera Department of Pathology & Laboratory Medicine, [facility] [place] [id number] [place] [address]. [place] [address] Toll free: Specimen Type: BONE MARROW SPECIMEN Ordering Facility: [facility] Address: [address] [place] [address] Original Ordering Provider: [facility] ALL T-CELL MRDon 08-23-2024 ALL T-CELL MRD View results in Scan carter Documents link when available. [facility] Specimen Type: BONE MARROW SPECIMEN Ordering Facility: [facility] Address: [address] [place] [address] Original Ordering Provider: [facility] DNA EXTRACTION BONE ESTRELLA OW (BUFFY COAT)on 08-21-2024 PSYCHIATRIC DNA EXTRACTION BONE MARROW (BUFFY COAT) [facility] Comment on above: This specimen was re ceived and successfully processed for future DNA purification should molecular testing be needed. Specimens will be available for 3 years from date of collection. To order testing on this specimen for [facility] patients, please place an [facility] order for DNA and RNA Clinical Testing ([id number]). To order testing for patients outside of the [facility] system, please request DNA and RNA for Clinical Testing, order code [id number]. If additional paperwork is required for testing, please send completed forms via secure email to [email or web address]. Specimen Type: BONE MARROW SPECIMEN Ordering Facility: [facility] Address: [facility] [place] [address] Original Ordering Provider: MARCELINA MAN [facility] ALL CBC WITH AUTO DIFFon Erythrocyte distribution width (RBC) [Ratio] 18.3 % High 11.0 - 15.0 % [facility] Hematocrit (Bld) [Volume fraction] 36 % 36.0 - 48.0 % [facility] Hemoglobin (Bld) [Mass/Vol] 11.1 g/dL Low 12.0 - 16.0 g/dL [facility] MCH (RBC) [Entitic mass] 25.1 pg Low 26.7 - 34.0 pg [facility] MCHC (RBC) [Mass/Vol] 30.8 g/dL 29.9 - 35.2 g/dL [facility] MCV (RBC) [Entitic vol] 81.3 fL 81.0 - 99.0 fL [facility] Platelet mean volume (Bld) [Entitic vol] 11 fL 9.5 - 13.5 fL [facility] TBH PLT 252 [facility] RBC 4.43 [facility] WBC 3.7 Low [facility] BONE MARROW ANALYSISon 1 10-18-2023 PSYCHIATRIC CASE REPORT [facility] Comment on above: Bone Marrow Patholog y Report Case: [id number] Authorizing Provider: Marcelina Rangel MD, Collected: 08/17/2024 11:35 AM PhD Ordering Location: Hematology/Oncology Received: 08/17/2024 12:22 PM Pathologist: Ramon Philip V, MD, PhD Specimens: A) - Bone Marrow, Aspirate, Right, Posterior, Iliac Crest B) - Bone Marrow, Biopsy, Right, Posterior, Iliac Crest C) - Bone Marrow, Clot, Right, Posterior, Iliac Crest D) - Blood [facility] DIAGNOSIS COMMENT [facility] Comment on above: 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 The findings in this case consist of lymphopenia and borderline anemia associated with a bone marrow with regenerative changes. There is no morphologic evidence of involvement by acute leukemia, but correlation with molecular and conventional cytogenetic findings is necessary in order to investigate the possibility of minimal residual disease. [facility] FINAL DIAGNOSIS [facility] Comment on above: A-C. Bone marrow, bi opsy core, aspirate clot, touch imprint, and aspirate smear: - Cellular (40%) bone marrow with trilineage hematopoiesis and mild erythroid hyperplasia. - Adequate stainable iron. - See comment. D. Peripheral blood smear: - Mild leukopenia with lymphopenia. - See comment. CVC/mm/08/18/2024 FINAL PERFORMING LAB [facility] Comment on above: Diagnostic interpret ation performed at: [facility], [address] [place] [address], [facility] [place] [address] CLIA# [id number] Community Support Specialist: Diego Bourgeois MD [facility] GROSS DESCRIPTION [facility] Comment on above: A. Bone Marrow, Aspi rate, Right, Posterior, Iliac Crest Received are air-dried bone marrow aspirate smears. Submitted for light microscopy. B. Bone Marrow, Biopsy, Right, Posterior, Iliac Crest Received in formalin are multiple segments of cylindrical tissue aggregating to 1.8 x 0.3 x 0.3 cm, abarca and of a firm consistency. Totally submitted in one cassette after decalcification. C. Bone Marrow, Clot, Right, Posterior, Iliac Crest Received in formalin is one segment of red, hemorrhagic material measuring 1.6 x 1.3 x 0.8 cm. Totally submitted in one cassette. D. Blood Received is a peripheral blood smear. Submitted for light microscopy. Gross examination performed at [facility], [address] [place] [address] 08/17/2024 7:40 PM [facility] MICROSCOPIC DESCRIPTION [facility] Comment on above: PERIPHERAL BLOOD: CBC (08/17/2024 12:53 PM) Diff: Auto WBC 3.68 k/uL Neutrophils % 69.5 Hemoglobin 11.3 g/dL Lymphocytes % 11.4 MCV 80.7 fL Monocytes % 17.1 RDW-CV 18.5 % Eosinophils % 1.4 Platelet Count 272 k/uL Basophils % 0.3 Immature Granulocytes % 0.3 Other: Morphology/Interpretation: Mild leukopenia with relative and absolute lymphopenia. BONE MARROW ASPIRATE: Result Normal Range 1 % Blasts 0-2 0 % Promyelocytes 1-5 27 % Myelos/Metas/Bands/Segs 32-72 4 % Eosinophils 1-6 0 % Basophils 0-1 0 % Monocytes 0-4 65 % Erythroid precursors 13-37 2 % Lymphocytes 7-23 1 % Plasma cells 0-2 Myeloid/Erythro (1.5-4): 0.5 Cells counted: 500 Iron stain result: 2+ (on a 0-4+ scale); no ring sideroblasts. Specimen Quality: Adequate. Megakaryocytes: Unremarkable. Erythropoiesis: Progressive maturation. Granulopoiesis: Unremarkable. Other: Small, mature lymphocytes. BONE MARROW BIOPSY: Adequacy: Adequate. Cellularity: Normal (40%). ME ratio: Decreased. Hematopoiesis: Mild erythroid hyperplasia. Megakaryocytes: Adequate. Megakaryocyte morphology: Unremarkable. Lymphoid infiltrate: None. Bone trabeculae: Normal. CLOT SECTION: Marrow particles: Many. Morphology: Similar to biopsy. ANCILLARY TESTS: Flow cytometry: Not performed. Cytogenetics: Pending. FISH: N/A Molecular: Buffy coat stored. Specimen Type: BONE MARROW SPECIMEN Ordering Facility: [facility] Address: [address] [place] [address] Original Ordering Provider: MARCELINA MAN [facility] CMP (CMP) (FOR REMOTE FH C USE)on 08-18-2024 Albumin [Mass/Vol] 3.2 g/dL Low 3.4 - 5.0 g/dL [facility] ALBUMIN GLOBULIN RATIO 0.9 [facility] ALP [Catalytic activity/Vol] 276 U/L High 46 - 116 U/L [facility] ALT [Catalytic activity/Vol] 119 U/L High 14 - 59 U/L [facility] Anion gap [Moles/Vol] 16.1 mmol/L [facility] AST [Catalytic activity/Vol] 45 U/L High 15 - 37 U/L [facility] Bilirubin [Mass/Vol] 1.1 mg/dL High 0.2 - 1 .0 mg/dL [facility] Calcium [Mass/Vol] 9 mg/dL 8.5 - 10. 1 mg/dL [facility] Chloride [Moles/Vol] 107 mmol/L 98 - 10 7 mmol/L [facility] CO2 [Moles/Vol] 27.8 mmol/L 21.0 - 32.0 mmol/L [facility] Creatinine [Mass/Vol] 0.61 mg/dL 0.55 - 1.02 mg/dL [facility] GFR/1.73 sq M.predicted CKD-EPI (S/P/Bld) [Vol rate/Area] >60 >=60 mL/min/1.73m 2 [facility] Globulin (S) [Mass/Vol] 3.7 g/dL [facility] Glucose [Mass/Vol] 124 mg/dL High 74 - 106 mg/dL [facility] Interpretation and review of laboratory results Abnormal [facility] Potassium [Moles/Vol] 3.9 mmol/L 3.5 - 5.1 mmol/L [facility] Protein [Mass/Vol] 6.9 g/dL 6.4 - 8.2 g/dL [facility] Sodium [Moles/Vol] 147 mmol/L High 136 - 145 mmol/L [facility] TBH EGFR-NON AF GUINEAN >60 >=60 mL/min/1.73m 2 [facility] Urea nitrogen [Mass/Vol] 11 mg/dL 7.0 - 18.0 mg/dL [facility] Urea nitrogen/Creatinine [Mass ratio] 18 mg/mg [facility] MHPT DIFFERENTIALon 08-18-20 24 Anisocytosis Ql (Bld) 1+ [facility] Band form neutrophils/100 WBC (Bld) 1 % 0 - 5 % [facility] BAND NEUTROPHILS ABSOLUTE 0 [facility] BASOPHILS ABS MANUAL 0 [facility] BASOPHILS PERCENT MANUAL 0 % Low 0.2 - 2.0 % [facility] Eosinophils (Bld) [#/Vol] 0 10*3/uL [facility] EOSINOPHILS PERCENT MANUAL 0 % Low 0.9 - 7.0 % [facility] Lymphocytes (Bld) [#/Vol] 0.44 10*3/uL Low [facility] LYMPHOCYTES PERCENT MANUAL 12 % Low 20.5 - 60.0 % [facility] Monocytes (Bld) [#/Vol] 0.37 10*3/uL [facility] MONOCYTES PERCENT MANUAL 10 % 1.7 - 12.0 % [facility] OVALOCYTES 1+ [facility] SEGMENTED NEUT ABSOLUTE MANUAL 2.84 [facility] SEGMENTED NEUTROPHILS % MANUAL 77 High 43.0 - 75.0 [facility] No Panel Informationon 08-18 Interpretation and review of laboratory results Abnormal [facility] BONE MARROW BIOPSYon 024 Candi Vera APRN.CNP 08/17/2024 11:42 AM BONE MARROW BIOPSY Date/Start Time: 08/17/2024 11:15 AM Date/Stop Time: 08/17/2024 11:35 AM Performed by: Candi Vera APRN.CNP Authorized by: Candi Vera APRN.CNP Where was Patient When this Procedure was Performed: [facility] Informed Consent Consent Obtained: Written [place] Protocol A moment to CARE was completed. SIGN IN Personnel directly involved with the procedure wore the appropriate PPE. Special Equipment: Yes (OnControl) Patient/Surrogate Stated/Verified: Patient name, Date of , Relevant allergies and Intended procedure TIME OUT Intended patient and procedure match the source document(s). Consent documented and matches the intended procedure. Relevant labs, photos, and/or imaging studies have been reviewed. Correct side/site marked and visible. Medications required for procedure verified. No fire risk assessment and interventions applicable. No implant(s) inserted. Pre-Procedure Details: The area was prepped with povidone Iodine (Betadine) and allowed to dry. A sterile partial body drape was applied following the usual aseptic technique. Medications: Analgesia Sedation CCHS: Tylenol. Local Anesthesia (see MAR): Lidocaine 2% (10 ml) Anxiolysis (see MAR): Lorazapem Procedure Details: Patient Position: Left lateral decubitus Aspiration Laterality: Unilateral Aspiration Site: Right posterior superior iliac crest Biopsy Laterality: Unilateral Biopsy Site: Right posterior sperior iliac crest OnControl biopsy system was used. Using aseptic technique, bone marrow aspiration was performed. A touch prep was taken. Core biopsy was obtained 1 cm. The core biopsy was confirmed. Number of External Insertion Sites: 1 Pressure dressing applied to Bone Marrow site(s). Hemostasis maintained. Assisting Clinician(s): Vivi Pisano APRN.CNP, preformed the entire procedure under my direct supervision. Mayda Ramos APRN.CNP observed. Post-Procedure Details: Patient Tolerance: Patient tolerated the procedure well with no immediate complications Estimated Blood Loss: scant Specimens Sent: bone marrow analysis, bone marrow chromosome analysis, DNA extraction and flow cytometry (ALL T-cell MRD) Teaching Complete: Bone Marrow Biopsy Post-procedure teaching complete Post-procedure care was reviewed and explained. Patient instructed to communicate complaints of redness, swelling, increased or unresolved pain, bleeding chills, bruising, and/or fever. Patient verbalized understanding. SIGN OUT All instruments, equipment, possible retained foreign bodies accounted for. Post-procedure follow-up management communicated and Plan of Care Visit completed when applicable Comments: Libra Doss, Director Digital, observed. [facility] CBC W Auto Differential pane l (Bld)on 08-17-2024 Basophils (Bld) [#/Vol] [facility] Differential cell count method Nom (Bld) Auto [facility] Eosinophils (Bld) [#/Vol] 0.05 10*3/uL [facility] Hematocrit (Bld) [Volume fraction] 38.0 % 36.0 - 46.0 % [facility] Immature granulocytes (Bld) [#/Vol] [facility] Immature granulocytes/100 WBC (Bld) 0.3 % [facility] Lymphocytes (Bld) [#/Vol] 0.42 10*3/uL [facility] MCH (RBC) [Entitic mass] 24.0 pg Low 26.0 - 34.0 pg [facility] Monocytes (Bld) [#/Vol] 0.63 10*3/uL [facility] Neutrophils (Bld) [#/Vol] 2.56 10*3/uL [facility] Nucleated RBC (Bld) [#/Vol] [facility] Nucleated RBC/100 WBC (Bld) [Ratio] 0.0 % /100 WBC [facility] Platelet mean volume (Bld) [Entitic vol] 11.4 fL 9.0 - 12.7 fL [facility] Platelets (Bld) [#/Vol] 272 10*3/uL [facility] WBC (Bld) [#/Vol] 3.68 10*3/uL [facility] CBC W AUTO DIFF BLDon [facility] BASOPHILS # [facility]0.03 [facility] # B[facility] 0.05 [facility] LY[facility] # BLD AUTO 0.42 Low [facility] MONOCYTES # BLD AUTO 0.63 [facility] NEUTROPHILS # BLD AUTO 2.56 [facility] NRBC # BLD AUTO <0.01 [facility] NRBC/100 WBC BLD-RTO 0 /100 WBC [facility] PLATELET # BLD AUTO 272 [facility] PMV BLD AUTO 11.4 fL 9.0 - 12.7 fL [facility] WBC # BLD AUTO 3.68 Low [facility] Hematocrit (Bld) [Volume fraction] 38 % 36.0 - 46.0 % [facility] IMM GRANULOCYTES # BLD AUTO <0.03 [facility] IMM GRANULOCYTES/[place] NFR BLD AUTO 0.3 % [facility] MCH (RBC) [Entitic mass] 24 pg Low 26.0 - 34.0 pg [facility] Specimen Type: BLOOD SPECIMEN Ordering Facility: [facility] Address: [address] [place] [address] Original Ordering Provider: MARCELINA BEACHKelso TechnologiesSUMAYA PSYCHIATRIC FLOW CYTOMETRY FOR [place] CHE/LYMPHOMA (FCLL) PERFORMABLEon 08-17-2024 [facility] FLOW CYTOMETRY ORDER STATUS A bone marrow sample was received for potential flow cytometry studies. Following morphologic review, flow cytometric studies will be ordered by the hematopathologist if testing is indicated. [facility] Specimen Type: BONE MARROW SPECIMEN Ordering Facility: [facility] Address: [address] [place] [address] Original Ordering Provider: MARCELINA BEACHKelso TechnologiesSUMAYA FLOW CYTOMETRY FOR LEUKEMIA/ LYMPHOMA (FCLL) PERFORMABLEOrdered By: Tj Taveras on 08-17-2024 Flow Cytometry Order Status A bone marrow sample was received for potential flow cytometry studies. Following morphologic review, flow cytometric studies will be ordered by the hematopathologist if testing is indicated. [facility] Laboratory - Hematology and Cell countson 08-17-2024 Basophils/100 WBC (Bld) 0.3 % [facility] Eosinophils/100 WBC (Bld) 1.4 % [facility] Erythrocyte distribution width (RBC) [Ratio] 18.5 % High 11.5 - 15.0 % [facility] Hemoglobin (Bld) [Mass/Vol] 11.3 g/dL Low 11.5 - 15.5 g/dL [facility] Lymphocytes/100 WBC (Bld) 11.4 % [facility] MCHC (RBC) [Mass/Vol] 29.7 g/dL Low 30.5 - 36.0 g/dL [facility] MCV (RBC) [Entitic vol] 80.7 fL 80.0 - 100.0 fL [facility] Monocytes/100 WBC (Bld) 17.1 % [facility] Neutrophils/100 WBC (Bld) 69.5 % [facility] RBC (Bld) [#/Vol] 4.71 10*6/uL 3.90 - 5.2 0 m/uL [facility] No Panel InformationOrdered By: Tj Taveras on 08-17-2024 [facility] No Panel Informationon 08-17 Interpretation and review of laboratory results Abnormal [facility] ALL CBC WITH AUTO DIFFon BASOPHILS ABSOLUTE AUTO 0 [facility] Basophils/100 WBC (Bld) 0.2 % 0.2 - 2.0 % [facility] Eosinophils/100 WBC (Bld) 0.3 % Low 0.9 - 7.0 % [facility] Erythrocyte distribution width (RBC) [Ratio] 17.7 % High 11.0 - 15.0 % [facility] Hematocrit (Bld) [Volume fraction] 37.3 % 36.0 - 48.0 % [facility] Hemoglobin (Bld) [Mass/Vol] 11.6 g/dL Low 12.0 - 16.0 g/dL [facility] IMMATURE GRANULOCYTES ABS AUTO 0.01 [facility] Immature granulocytes/100 WBC (Bld) 0.2 % 0.0 - 0.5 % [facility] Interpretation and review of laboratory results Abnormal [facility] LYMPHOCYTES ABSOLUTE AUTO 0.5 Low [facility] Lymphocytes/100 WBC (Bld) 7.7 % Low 20.5 - 60.0 % [facility] MCH (RBC) [Entitic mass] 25.1 pg Low 26.7 - 34.0 pg [facility] MCHC (RBC) [Mass/Vol] 31.1 g/dL 29.9 - 35.2 g/dL [facility] MCV (RBC) [Entitic vol] 80.7 fL Low 81.0 - 99.0 fL [facility] MONOCYTES ABSOLUTE AUTO 0.2 Low [facility] Monocytes/100 WBC (Bld) 2.8 % 1.7 - 12.0 % [facility] NEUTROPHILS ABSOLUTE AUTO 5.3 [facility] Neutrophils/100 WBC (Bld) 88.8 % High 43.0 - 75.0 % [facility] Platelet mean volume (Bld) [Entitic vol] 10.4 fL 9.5 - 13.5 fL [facility] TBH EO # 0 [facility] TBH PLT 291 [facility] RBC 4.62 [facility] WBC 6 [facility] CBC W Auto Differential pane l (Bld)on 08-06-2024 Basophils (Bld) [#/Vol] [facility] Differential cell count method Nom (Bld) Auto [facility] Eosinophils (Bld) [#/Vol] 0.08 10*3/uL [facility] Immature granulocytes (Bld) [#/Vol] 0.03 10*3/uL [facility] Immature granulocytes/100 WBC (Bld) 0.6 % [facility] Lymphocytes (Bld) [#/Vol] 0.70 10*3/uL Low [facility] Lymphocytes/100 WBC (Bld) 13.0 % [facility] Monocytes (Bld) [#/Vol] 0.38 10*3/uL [facility] Neutrophils (Bld) [#/Vol] 4.18 10*3/uL [facility] Nucleated RBC (Bld) [#/Vol] [facility] Nucleated RBC/100 WBC (Bld) [Ratio] 0.0 % /100 WBC [facility] Platelet mean volume (Bld) [Entitic vol] 10.3 fL 9.0 - 12.7 fL [facility] Platelets (Bld) [#/Vol] 318 10*3/uL [facility] WBC (Bld) [#/Vol] 5.39 10*3/uL [facility] CBC W AUTO DIFF BLDon [facility] BASOPHILS # BLD AUTO <0.03 [facility] DIFFERENTIAL METHOD BLD Auto [facility] EOSINOPHIL # BLD AUTO 0.08 [facility] LYMPHOCYTES # BLD AUTO 0.7 Low [facility] MONOCYTES # BLD AUTO 0.38 [facility] NEUTROPHILS # BLD AUTO 4.18 [facility] NRBC # BLD AUTO <0.01 [facility] NRBC/100 WBC BLD-RTO 0 /100 WBC [facility] PLATELET # BLD AUTO 318 [facility] PMV BLD AUTO 10.3 fL 9.0 - 12.7 fL [facility] WBC # BLD AUTO 5.39 [facility] IMM GRANULOCYTES # BLD AUTO 0.03 [facility] IMM GRANULOCYTES/[place] NFR BLD AUTO 0.6 % [facility] Lymphocytes/100 WBC (Bld) 13 % [facility] Specimen Type: BLOOD SPECIMEN Ordering Facility: [facility] Address: [address] [place] [address] Original Ordering Provider: MARCELINA RANGEL [facility] Laboratory - Hematology and Cell countson 08-06-2024 Basophils/100 WBC (Bld) 0.4 % [facility] Eosinophils/100 WBC (Bld) 1.5 % [facility] Erythrocyte distribution width (RBC) [Ratio] 18.5 % High 11.5 - 15.0 % [facility] Hematocrit (Bld) [Volume fraction] 38.7 % 36.0 - 46.0 % [facility] Hemoglobin (Bld) [Mass/Vol] 11.5 g/dL 11.5 - 15.5 g/dL [facility] MCH (RBC) [Entitic mass] 24.3 pg Low 26.0 - 34.0 pg [facility] MCHC (RBC) [Mass/Vol] 29.7 g/dL Low 30.5 - 36.0 g/dL [facility] MCV (RBC) [Entitic vol] 81.8 fL 80.0 - 100.0 fL [facility] Monocytes/100 WBC (Bld) 7.1 % [facility] Neutrophils/100 WBC (Bld) 77.4 % [facility] RBC (Bld) [#/Vol] 4.73 10*6/uL 3.90 - 5.2 0 m/uL [facility] No Panel Informationon 08-06 Interpretation and review of laboratory results Abnormal [facility] ALL CBC WITH AUTO DIFFon BASOPHILS ABSOLUTE AUTO 0 [facility] Basophils/100 WBC (Bld) 0.3 % 0.2 - 2.0 % [facility] Eosinophils/100 WBC (Bld) 3.3 % 0.9 - 7.0 % [facility] Erythrocyte distribution width (RBC) [Ratio] 18.4 % High 11.0 - 15.0 % [facility] Hematocrit (Bld) [Volume fraction] 36 % 36.0 - 48.0 % [facility] Hemoglobin (Bld) [Mass/Vol] 10.8 g/dL Low 12.0 - 16.0 g/dL [facility] IMMATURE GRANULOCYTES ABS AUTO 0.02 [facility] Immature granulocytes/100 WBC (Bld) 0.7 % High 0.0 - 0.5 % [facility] Interpretation and review of laboratory results Abnormal [facility] LYMPHOCYTES ABSOLUTE AUTO 0.5 Low [facility] Lymphocytes/100 WBC (Bld) 16.7 % Low 20.5 - 60.0 % [facility] MCH (RBC) [Entitic mass] 24.6 pg Low 26.7 - 34.0 pg [facility] MCHC (RBC) [Mass/Vol] 30 g/dL 29.9 - 35.2 g/dL [facility] MCV (RBC) [Entitic vol] 82 fL 81.0 - 99.0 fL [facility] MONOCYTES ABSOLUTE AUTO 0.4 [facility] Monocytes/100 WBC (Bld) 12.3 % High 1.7 - 12.0 % [facility] NEUTROPHILS ABSOLUTE AUTO 2 [facility] Neutrophils/100 WBC (Bld) 66.7 % 43.0 - 75.0 % [facility] Platelet mean volume (Bld) [Entitic vol] 10.8 fL 9.5 - 13.5 fL [facility] EO # 0.1 [facility] PLT 313 [facility] RBC 4.39 [facility] WBC 3 Low [facility] ALL CBC WITH AUTO DIFFon Erythrocyte distribution width (RBC) [Ratio] 19.6 % High 11.0 - 15.0 % [facility] Hematocrit (Bld) [Volume fraction] 35 % Low 36.0 - 48.0 % [facility] Hemoglobin (Bld) [Mass/Vol] 10.5 g/dL Low 12.0 - 16.0 g/dL [facility] Interpretation and review of laboratory results Abnormal [facility] MCH (RBC) [Entitic mass] 24.8 pg Low 26.7 - 34.0 pg [facility] MCHC (RBC) [Mass/Vol] 30 g/dL 29.9 - 35.2 g/dL [facility] MCV (RBC) [Entitic vol] 82.7 fL 81.0 - 99.0 fL [facility] Platelet mean volume (Bld) [Entitic vol] 10.4 fL 9.5 - 13.5 fL [facility] PLT 220 [facility] RBC 4.23 [facility] WBC 4.2 [facility] ALL CBC WITH AUTO DIFFon Erythrocyte distribution width (RBC) [Ratio] 18.6 % High 11.0 - 15.0 % [facility] Hematocrit (Bld) [Volume fraction] 36.1 % 36.0 - 48.0 % [facility] Hemoglobin (Bld) [Mass/Vol] 11.1 g/dL Low 12.0 - 16.0 g/dL [facility] Interpretation and review of laboratory results Abnormal [facility] MCH (RBC) [Entitic mass] 24.8 pg Low 26.7 - 34.0 pg [facility] MCHC (RBC) [Mass/Vol] 30.7 g/dL 29.9 - 35.2 g/dL [facility] MCV (RBC) [Entitic vol] 80.6 fL Low 81.0 - 99.0 fL [facility] Platelet mean volume (Bld) [Entitic vol] 9.6 fL 9.5 - 13.5 fL [facility] PLT 421 [facility] RBC 4.48 [facility] WBC 7.2 [facility] CBC W Auto Differential pane l (Bld)on 07-16-2024 Basophils (Bld) [#/Vol] [facility] Differential cell count method Nom (Bld) Auto [facility] Eosinophils (Bld) [#/Vol] [facility] Immature granulocytes (Bld) [#/Vol] 0.09 10*3/uL [facility] Immature granulocytes/100 WBC (Bld) 1.0 % [facility] Lymphocytes (Bld) [#/Vol] 0.95 10*3/uL Low [facility] Monocytes (Bld) [#/Vol] 0.40 10*3/uL [facility] Neutrophils (Bld) [#/Vol] 7.45 10*3/uL [facility] Nucleated RBC (Bld) [#/Vol] [facility] Nucleated RBC/100 WBC (Bld) [Ratio] 0.0 % /100 WBC [facility] Platelet mean volume (Bld) [Entitic vol] 9.4 fL 9.0 - 12.7 fL [facility] Platelets (Bld) [#/Vol] 481 10*3/uL High [facility] WBC (Bld) [#/Vol] 8.93 10*3/uL [facility] CBC W AUTO DIFF BLDon [facility] BASOPHILS # BLD AUTO <0.03 [facility] DIFFERENTIAL METHOD BLD Auto [facility] EOSINOPHIL # BLD AUTO <0.03 [facility] LYMPHOCYTES # BLD AUTO 0.95 Low [facility] MONOCYTES # BLD AUTO 0.40 [facility] NEUTROPHILS # BLD AUTO 7.45 [facility] NRBC # BLD AUTO <0.01 [facility] NRBC/100 WBC BLD-RTO 0.0 /100 WBC [facility] PLATELET # BLD AUTO 481 High [facility] PMV BLD AUTO 9.4 fL 9.0 - 12.7 fL [facility] WBC # BLD AUTO 8.93 [facility] IMM GRANULOCYTES # BLD AUTO 0.09 [facility] IMM GRANULOCYTES/[place] NFR BLD AUTO 1.0 % [facility] Specimen Type: BLOOD SPECIMEN Ordering Facility: [facility] Address: [address] [place] [address] Original Ordering Provider: [facility] 2000 panelon 07-16-2024 Albumin [Mass/Vol] 3.7 g/dL Low 3.9 - 4.9 g/dL [facility] ALP [Catalytic activity/Vol] 299 U/L High 34 - 123 U/L [facility] ALT [Catalytic activity/Vol] 65 U/L High 7 - 38 U/L [facility] Anion gap [Moles/Vol] 10 mmol/L 8 - 15 mmol/L [facility] AST [Catalytic activity/Vol] 41 U/L High 13 - 35 U/L [facility] Bilirubin [Mass/Vol] 0.6 mg/dL 0.2 - 1 .3 mg/dL [facility] Calcium [Mass/Vol] 9.1 mg/dL 8.5 - 10. 2 mg/dL [facility] Chloride [Moles/Vol] 106 mmol/L 98 - 10 7 mmol/L [facility] CO2 [Moles/Vol] 25 mmol/L 22 - 30 mmol/L [facility] Creatinine [Mass/Vol] 0.39 mg/dL Low 0.58 - 0.96 mg/dL [facility] GFR/1.73 sq M.predicted among non-blacks MDRD (S/P/Bld) [Vol rate/Area] 130 mL/min/{1.73_m2} - PINF [facility] Comment on above: Estimated Glomerular Filtration Rate (eGFR) is calculated using the 2020 CKD-EPI creatinine equation. This equation utilizes serum creatinine, sex, and age as parameters. The creatinine assay has traceable calibration to isotope dilution-mass spectrometry. Refer to KDIGO guidelines for clinical interpretation. In patients with unstable renal function, e.g. those with acute kidney injury, the eGFR may not accurately reflect actual GFR. Glucose [Mass/Vol] 98 mg/dL 74 - 99 mg/dL [facility] Comment on above: The [place] [employer] (ADA) provides guidance for cutoff values for fasting glucose and random glucose. The ADA defines fasting as no caloric intake for at least 8 hours. Fasting plasma glucose results between 100 to 125 mg/dL indicate increased risk for diabetes (prediabetes). Fasting plasma glucose results greater than or equal to 126 mg/dL meet the criteria for diagnosis of diabetes. In the absence of unequivocal hyperglycemia, results should be confirmed by repeat testing. In a patient with classic symptoms of hyperglycemia or hyperglycemic crisis, random plasma glucose results greater than or equal to 200 mg/dL meet the criteria for diagnosis of diabetes. Reference: Standards of Medical Care in Diabetes 2016, [place] [employer]. Diabetes Care. 2016.39(Suppl 1). Interpretation and review of laboratory results Abnormal [facility] Potassium [Moles/Vol] 3.8 mmol/L 3.7 - 5.1 mmol/L [facility] Protein [Mass/Vol] 7.1 g/dL 6.3 - 8.0 g/dL [facility] Sodium [Moles/Vol] 141 mmol/L 136 - 144 mmol/L [facility] Urea nitrogen [Mass/Vol] 17 mg/dL 7 - 21 mg/dL [facility] Laboratory - Chemistry and C hemistry - challengeon 07-16-2024 Magnesium [Mass/Vol] 2.0 mg/dL 1.7 - 2 .3 mg/dL [facility] Laboratory - Hematology and Cell countson 07-16-2024 Basophils/100 WBC (Bld) 0.2 % [facility] Eosinophils/100 WBC (Bld) 0.2 % [facility] Erythrocyte distribution width (RBC) [Ratio] 20.4 % High 11.5 - 15.0 % [facility] Hematocrit (Bld) [Volume fraction] 36.3 % 36.0 - 46.0 % [facility] Hemoglobin (Bld) [Mass/Vol] 10.7 g/dL Low 11.5 - 15.5 g/dL [facility] Lymphocytes/100 WBC (Bld) 10.6 % [facility] MCH (RBC) [Entitic mass] 24.5 pg Low 26.0 - 34.0 pg [facility] MCHC (RBC) [Mass/Vol] 29.5 g/dL Low 30.5 - 36.0 g/dL [facility] MCV (RBC) [Entitic vol] 83.1 fL 80.0 - 100.0 fL [facility] Monocytes/100 WBC (Bld) 4.5 % [facility] Neutrophils/100 WBC (Bld) 83.5 % [facility] RBC (Bld) [#/Vol] 4.37 10*6/uL 3.90 - 5.2 0 m/uL [facility] Magnesium [Mass/Vol]on 07-16 Interpretation and review of laboratory results Normal [facility] No Panel Informationon 07-16 [facility] Interpretation and review of laboratory results Abnormal [facility] ALL CBC WITH AUTO DIFFon BASOPHILS ABSOLUTE AUTO 0.0 [facility] [facility] Bas[facility]/100 WBC (Bld) 0.3 % 0.2 - 2.0 % [facility] Eosinophils/100 WBC (Bld) 1.1 % 0.9 - 7.0 % [facility] Erythrocyte distribution width (RBC) [Ratio] 20.6 % High 11.0 - 15.0 % [facility] Hematocrit (Bld) [Volume fraction] 36.7 % 36.0 - 48.0 % [facility] Hemoglobin (Bld) [Mass/Vol] 10.8 g/dL Low 12.0 - 16.0 g/dL [facility] IMMATURE GRANULOCYTES ABS AUTO 0.11 High [facility] Immature granulocytes/100 WBC (Bld) 1.5 % High 0.0 - 0.5 % [facility] Interpretation and review of laboratory results Abnormal [facility] LYMPHOCYTES ABSOLUTE AUTO 0.9 Low [facility] Lymphocytes/100 WBC (Bld) 12.2 % Low 20.5 - 60.0 % [facility] MCH (RBC) [Entitic mass] 24.5 pg Low 26.7 - 34.0 pg [facility] MCHC (RBC) [Mass/Vol] 29.4 g/dL Low 29.9 - 35.2 g/dL [facility] MCV (RBC) [Entitic vol] 83.4 fL 81.0 - 99.0 fL [facility] MONOCYTES ABSOLUTE AUTO 0.5 [facility] Monocytes/100 WBC (Bld) 6.4 % 1.7 - 12.0 % [facility] NEUTROPHILS ABSOLUTE AUTO 5.8 [facility] Neutrophils/100 WBC (Bld) 78.5 % High 43.0 - 75.0 % [facility] Platelet mean volume (Bld) [Entitic vol] 9.4 fL Low 9.5 - 13.5 fL [facility] TBH EO # 0.1 [facility] TBH PLT 514 High [facility] RBC 4.40 [facility] WBC 7.4 [facility] CMP (CMP) (FOR REMOTE FH C USE)on 07-08-2024 Albumin [Mass/Vol] 2.4 g/dL Low 3.4 - 5.0 g/dL [facility] ALBUMIN GLOBULIN RATIO 0.5 [facility] ALP [Catalytic activity/Vol] 260 U/L High 46 - 116 U/L [facility] ALT [Catalytic activity/Vol] 108 U/L High 14 - 59 U/L [facility] Anion gap [Moles/Vol] 10.8 mmol/L [facility] AST [Catalytic activity/Vol] 47 U/L High 15 - 37 U/L [facility] Bilirubin [Mass/Vol] 1.1 mg/dL High 0.2 - 1 .0 mg/dL [facility] Calcium [Mass/Vol] 9.1 mg/dL 8.5 - 10. 1 mg/dL [facility] Chloride [Moles/Vol] 98 mmol/L 98 - 10 7 mmol/L [facility] CO2 [Moles/Vol] 28.9 mmol/L 21.0 - 32.0 mmol/L [facility] Creatinine [Mass/Vol] 0.56 mg/dL 0.55 - 1.02 mg/dL [facility] GFR/1.73 sq M.predicted CKD-EPI (S/P/Bld) [Vol rate/Area] >60 >=60 mL/min/1.73m 2 [facility] Globulin (S) [Mass/Vol] 4.4 g/dL [facility] Glucose [Mass/Vol] 121 mg/dL High 74 - 106 mg/dL [facility] Interpretation and review of laboratory results Abnormal [facility] Potassium [Moles/Vol] 3.7 mmol/L 3.5 - 5.1 mmol/L [facility] Protein [Mass/Vol] 6.8 g/dL 6.4 - 8.2 g/dL [facility] Sodium [Moles/Vol] 134 mmol/L Low 136 - 145 mmol/L [facility] TBH EGFR-NON AF GUINEAN >60 >=60 mL/min/1.73m 2 [facility] Urea nitrogen [Mass/Vol] 13.0 mg/dL 7.0 - 18.0 mg/dL [facility] Urea nitrogen/Creatinine [Mass ratio] 23.2 mg/mg [facility] ALL CBC WITH AUTO DIFFon BASOPHILS ABSOLUTE AUTO 0.0 [facility] Basophils/100 WBC (Bld) 0.3 % 0.2 - 2.0 % [facility] Eosinophils/100 WBC (Bld) 0.3 % Low 0.9 - 7.0 % [facility] Erythrocyte distribution width (RBC) [Ratio] 20.7 % High 11.0 - 15.0 % [facility] Hematocrit (Bld) [Volume fraction] 35.7 % Low 36.0 - 48.0 % [facility] Hemoglobin (Bld) [Mass/Vol] 10.9 g/dL Low 12.0 - 16.0 g/dL [facility] IMMATURE GRANULOCYTES ABS AUTO 0.02 [facility] Immature granulocytes/100 WBC (Bld) 0.3 % 0.0 - 0.5 % [facility] Interpretation and review of laboratory results Abnormal [facility] LYMPHOCYTES ABSOLUTE AUTO 0.6 Low [facility] Lymphocytes/100 WBC (Bld) 8.6 % Low 20.5 - 60.0 % [facility] MCH (RBC) [Entitic mass] 25.1 pg Low 26.7 - 34.0 pg [facility] MCHC (RBC) [Mass/Vol] 30.5 g/dL 29.9 - 35.2 g/dL [facility] MCV (RBC) [Entitic vol] 82.3 fL 81.0 - 99.0 fL [facility] MONOCYTES ABSOLUTE AUTO 0.2 Low [facility] Monocytes/100 WBC (Bld) 2.8 % 1.7 - 12.0 % [facility] NEUTROPHILS ABSOLUTE AUTO 5.9 [facility] Neutrophils/100 WBC (Bld) 87.7 % High 43.0 - 75.0 % [facility] Platelet mean volume (Bld) [Entitic vol] 9.9 fL 9.5 - 13.5 fL [facility] TBH EO # 0.0 [facility] TBH PLT 383 [facility] TB RBC 4.34 [facility] WBC 6.7 [facility] CBC W Auto Differential pane l (Bld)on 06-25-2024 Basophils (Bld) [#/Vol] [facility] Differential cell count method Nom (Bld) Auto [facility] Eosinophils (Bld) [#/Vol] 0.05 10*3/uL [facility] Immature granulocytes (Bld) [#/Vol] 0.04 10*3/uL [facility] Immature granulocytes/100 WBC (Bld) 0.6 % [facility] Lymphocytes (Bld) [#/Vol] 0.79 10*3/uL Low [facility] Monocytes (Bld) [#/Vol] 0.57 10*3/uL [facility] Neutrophils (Bld) [#/Vol] 4.96 10*3/uL [facility] Nucleated RBC (Bld) [#/Vol] [facility] Nucleated RBC/100 WBC (Bld) [Ratio] 0.0 % /100 WBC [facility] Platelet mean volume (Bld) [Entitic vol] 9.5 fL 9.0 - 12.7 fL [facility] Platelets (Bld) [#/Vol] 391 10*3/uL [facility] WBC (Bld) [#/Vol] 6.43 10*3/uL [facility] CBC W AUTO DIFF BLDon [facility] BASOPHILS # BLD AUTO <0.03 [facility] DIFFERENTIAL METHOD BLD Auto [facility] EOSINOPHIL # BLD AUTO 0.05 [facility] LYMPHOCYTES # BLD AUTO 0.79 Low [facility] MONOCYTES # BLD AUTO 0.57 [facility] NEUTROPHILS # BLD AUTO 4.96 [facility] NRBC # BLD AUTO <0.01 [facility] NRBC/100 WBC BLD-RTO 0.0 /100 WBC [facility] PLATELET # BLD AUTO 391 [facility] PMV BLD AUTO 9.5 fL 9.0 - 12.7 fL [facility] WBC # BLD AUTO 6.43 [facility] IMM GRANULOCYTES # BLD AUTO 0.04 [facility] IMM GRANULOCYTES/[place] NFR BLD AUTO 0.6 % [facility] Specimen Type: BLOOD SPECIMEN Ordering Facility: [facility] Address: [address] [place] [address] Original Ordering Provider: MARCELINA RANGEL [facility] Comprehensive metabolic 2000 panelon 06-25-2024 Albumin [Mass/Vol] 4.0 g/dL 3.9 - 4.9 g/dL [facility] ALP [Catalytic activity/Vol] 281 U/L High 34 - 123 U/L [facility] ALT [Catalytic activity/Vol] 60 U/L High 7 - 38 U/L [facility] Anion gap [Moles/Vol] 10 mmol/L 8 - 15 mmol/L [facility] AST [Catalytic activity/Vol] 41 U/L High 13 - 35 U/L [facility] Bilirubin [Mass/Vol] 0.6 mg/dL 0.2 - 1 .3 mg/dL [facility] Calcium [Mass/Vol] 9.5 mg/dL 8.5 - 10. 2 mg/dL [facility] Chloride [Moles/Vol] 103 mmol/L 98 - 10 7 mmol/L [facility] CO2 [Moles/Vol] 27 mmol/L 22 - 30 mmol/L [facility] Creatinine [Mass/Vol] 0.45 mg/dL Low 0.58 - 0.96 mg/dL [facility] GFR/1.73 sq M.predicted among non-blacks MDRD (S/P/Bld) [Vol rate/Area] 126 mL/min/{1.73_m2} - PINF [facility] Comment on above: Estimated Glomerular Filtration Rate (eGFR) is calculated using the 2020 CKD-EPI creatinine equation. This equation utilizes serum creatinine, sex, and age as parameters. The creatinine assay has traceable calibration to isotope dilution-mass spectrometry. Refer to KDIGO guidelines for clinical interpretation. In patients with unstable renal function, e.g. those with acute kidney injury, the eGFR may not accurately reflect actual GFR. Glucose [Mass/Vol] 128 mg/dL High 74 - 99 mg/dL [facility] Comment on above: The [place] [employer] (ADA) provides guidance for cutoff values for fasting glucose and random glucose. The ADA defines fasting as no caloric intake for at least 8 hours. Fasting plasma glucose results between 100 to 125 mg/dL indicate increased risk for diabetes (prediabetes). Fasting plasma glucose results greater than or equal to 126 mg/dL meet the criteria for diagnosis of diabetes. In the absence of unequivocal hyperglycemia, results should be confirmed by repeat testing. In a patient with classic symptoms of hyperglycemia or hyperglycemic crisis, random plasma glucose results greater than or equal to 200 mg/dL meet the criteria for diagnosis of diabetes. Reference: Standards of Medical Care in Diabetes 2016, [place] [employer]. Diabetes Care. 2016.39(Suppl 1). Interpretation and review of laboratory results Abnormal [facility] Potassium [Moles/Vol] 4.3 mmol/L 3.7 - 5.1 mmol/L [facility] Protein [Mass/Vol] 7.2 g/dL 6.3 - 8.0 g/dL [facility] Sodium [Moles/Vol] 140 mmol/L 136 - 144 mmol/L [facility] Urea nitrogen [Mass/Vol] 15 mg/dL 7 - 21 mg/dL [facility] - Hematology and Cell countson 06-25-2024 Basophils/100 WBC (Bld) 0.3 % [facility] Eosinophils/100 WBC (Bld) 0.8 % [facility] Erythrocyte distribution width (RBC) [Ratio] 22.5 % High 11.5 - 15.0 % [facility] Hematocrit (Bld) [Volume fraction] 37.9 % 36.0 - 46.0 % [facility] Hemoglobin (Bld) [Mass/Vol] 11.3 g/dL Low 11.5 - 15.5 g/dL [facility] Lymphocytes/100 WBC (Bld) 12.3 % [facility] MCH (RBC) [Entitic mass] 25.3 pg Low 26.0 - 34.0 pg [facility] MCHC (RBC) [Mass/Vol] 29.8 g/dL Low 30.5 - 36.0 g/dL [facility] MCV (RBC) [Entitic vol] 85.0 fL 80.0 - 100.0 fL [facility] Monocytes/100 WBC (Bld) 8.9 % [facility] Neutrophils/100 WBC (Bld) 77.1 % [facility] RBC (Bld) [#/Vol] 4.46 10*6/uL 3.90 - 5.2 0 m/uL [facility] No Panel Informationon 06-25 Interpretation and review of laboratory results Abnormal [facility] ALL CBC WITH AUTO DIFFon BASOPHILS ABSOLUTE AUTO 0.0 [facility] Basophils/100 WBC (Bld) 0.5 % 0.2 - 2.0 % [facility] Eosinophils/100 WBC (Bld) 1.7 % 0.9 - 7.0 % [facility] Erythrocyte distribution width (RBC) [Ratio] 23.2 % High 11.0 - 15.0 % [facility] Comment on above: ANISOCYTOSIS 3+ Hematocrit (Bld) [Volume fraction] 34.9 % Low 36.0 - 48.0 % [facility] Hemoglobin (Bld) [Mass/Vol] 10.7 g/dL Low 12.0 - 16.0 g/dL [facility] IMMATURE GRANULOCYTES ABS AUTO 0.03 [facility] Immature granulocytes/100 WBC (Bld) 0.7 % High 0.0 - 0.5 % [facility] Interpretation and review of laboratory results Abnormal [facility] LYMPHOCYTES ABSOLUTE AUTO 0.9 Low [facility] Lymphocytes/100 WBC (Bld) 22.5 % 20.5 - 60.0 % [facility] MCH (RBC) [Entitic mass] 26.1 pg Low 26.7 - 34.0 pg [facility] MCHC (RBC) [Mass/Vol] 30.7 g/dL 29.9 - 35.2 g/dL [facility] MCV (RBC) [Entitic vol] 85.1 fL 81.0 - 99.0 fL [facility] MONOCYTES ABSOLUTE AUTO 0.6 [facility] Monocytes/100 WBC (Bld) 13.5 % High 1.7 - 12.0 % [facility] NEUTROPHILS ABSOLUTE AUTO 2.5 [facility] Neutrophils/100 WBC (Bld) 61.1 % 43.0 - 75.0 % [facility] Platelet mean volume (Bld) [Entitic vol] 9.5 fL 9.5 - 13.5 fL [facility] TBH EO # 0.1 [facility] TB PLT 373 [facility] RBC 4.10 Low [facility] TBH WBC 4.1 [facility] CMP (CMP) (FOR REMOTE FH C USE)on 06-23-2024 Albumin [Mass/Vol] 3.0 g/dL Low 3.4 - 5.0 g/dL [facility] ALBUMIN GLOBULIN RATIO 0.7 [facility] ALP [Catalytic activity/Vol] 275 U/L High 46 - 116 U/L [facility] ALT [Catalytic activity/Vol] 71 U/L High 14 - 59 U/L [facility] Anion gap [Moles/Vol] 9.1 mmol/L [facility] AST [Catalytic activity/Vol] 33 U/L 15 - 37 U/L [facility] Bilirubin [Mass/Vol] 1.1 mg/dL High 0.2 - 1 .0 mg/dL [facility] Calcium [Mass/Vol] 9.1 mg/dL 8.5 - 10. 1 mg/dL [facility] Chloride [Moles/Vol] 100 mmol/L 98 - 10 7 mmol/L [facility] CO2 [Moles/Vol] 30.8 mmol/L 21.0 - 32.0 mmol/L [facility] Creatinine [Mass/Vol] 0.50 mg/dL Low 0.55 - 1.02 mg/dL [facility] GFR/1.73 sq M.predicted CKD-EPI (S/P/Bld) [Vol rate/Area] >60 60 - PINF [facility] Globulin (S) [Mass/Vol] 4.1 g/dL [facility] Glucose [Mass/Vol] 108 mg/dL High 74 - 106 mg/dL [facility] Interpretation and review of laboratory results Abnormal [facility] Potassium [Moles/Vol] 3.9 mmol/L 3.5 - 5.1 mmol/L [facility] Protein [Mass/Vol] 7.1 g/dL 6.4 - 8.2 g/dL [facility] Sodium [Moles/Vol] 136 mmol/L 136 - 145 mmol/L [facility] EGFR-NON AF GUINEAN >60 60 - PINF [facility] Urea nitrogen [Mass/Vol] 15.0 mg/dL 7.0 - 18.0 mg/dL [facility] Urea nitrogen/Creatinine [Mass ratio] 30.0 mg/mg [facility] ALL CBC WITH AUTO DIFFon Erythrocyte distribution width (RBC) [Ratio] 25.5 % High 11.0 - 15.0 % [facility] Hematocrit (Bld) [Volume fraction] 29.0 % Low 36.0 - 48.0 % [facility] Hemoglobin (Bld) [Mass/Vol] 8.9 g/dL Low 12.0 - 16.0 g/dL [facility] Interpretation and review of laboratory results Abnormal [facility] MCH (RBC) [Entitic mass] 25.9 pg Low 26.7 - 34.0 pg [facility] MCHC (RBC) [Mass/Vol] 30.7 g/dL 29.9 - 35.2 g/dL [facility] MCV (RBC) [Entitic vol] 84.3 fL 81.0 - 99.0 fL [facility] Platelet mean volume (Bld) [Entitic vol] 10.1 fL 9.5 - 13.5 fL [facility] PLT 367 [facility] RBC 3.44 Low [facility] WBC 2.6 Low [facility] ALL CBC WITH AUTO DIFFon Erythrocyte distribution width (RBC) [Ratio] 25.0 % High 11.0 - 15.0 % [facility] Hematocrit (Bld) [Volume fraction] 30.5 % Low 36.0 - 48.0 % [facility] Hemoglobin (Bld) [Mass/Vol] 9.6 g/dL Low 12.0 - 16.0 g/dL [facility] Interpretation and review of laboratory results Abnormal [facility] MCH (RBC) [Entitic mass] 26.7 pg 26.7 - 34.0 pg [facility] MCHC (RBC) [Mass/Vol] 31.5 g/dL 29.9 - 35.2 g/dL [facility] MCV (RBC) [Entitic vol] 84.7 fL 81.0 - 99.0 fL [facility] Platelet mean volume (Bld) [Entitic vol] 10.2 fL 9.5 - 13.5 fL [facility] TBH PLT 396 [facility] TB RBC 3.60 Low [facility] TB WBC 6.6 [facility] CBC W Auto Differential pane l (Bld)on 06-04-2024 Basophils (Bld) [#/Vol] 0.08 10*3/uL [facility] Differential cell count method Nom (Bld) Auto [facility] Eosinophils (Bld) [#/Vol] 0.05 10*3/uL [facility] Immature granulocytes (Bld) [#/Vol] 0.14 10*3/uL High [facility] Immature granulocytes/100 WBC (Bld) 1.1 % [facility] Lymphocytes (Bld) [#/Vol] 1.63 10*3/uL [facility] Monocytes (Bld) [#/Vol] 0.66 10*3/uL [facility] Neutrophils (Bld) [#/Vol] 10.63 10*3/uL [facility] Nucleated RBC (Bld) [#/Vol] 0.13 10*3/uL [facility] Nucleated RBC/100 WBC (Bld) [Ratio] 1.0 % /100 WBC [facility] Platelet mean volume (Bld) [Entitic vol] 9.6 fL 9.0 - 12.7 fL [facility] Platelets (Bld) [#/Vol] 406 10*3/uL High [facility] WBC (Bld) [#/Vol] 13.19 10*3/uL [facility] CBC W AUTO DIFF BLDon [facility] BASOPHILS # BLD AUTO 0.08 [facility] DIFFERENTIAL METHOD BLD Auto [facility] EOSINOPHIL # BLD AUTO 0.05 [facility] LYMPHOCYTES # BLD AUTO 1.63 [facility] MONOCYTES # BLD AUTO 0.66 [facility] NEUTROPHILS # BLD AUTO 10.63 High [facility] NRBC # BLD AUTO 0.13 High [facility] NRBC/100 WBC BLD-RTO 1.0 /100 WBC [facility] PLATELET # BLD AUTO 406 High [facility] PMV BLD AUTO 9.6 fL 9.0 - 12.7 fL [facility] WBC # BLD AUTO 13.19 [facility] IMM GRANULOCYTES # BLD AUTO 0.14 [facility] IMM GRANULOCYTES/[place] NFR BLD AUTO 1.1 % [facility] Specimen Type: BLOOD SPECIMEN Ordering Facility: [facility] Address: [address] [place] [address] Original Ordering Provider: MARCELINA RANGEL [facility] Comprehensive metabolic 2000 panelon 06-04-2024 Albumin [Mass/Vol] 3.7 g/dL Low 3.9 - 4.9 g/dL [facility] ALP [Catalytic activity/Vol] 322 U/L High 34 - 123 U/L [facility] ALT [Catalytic activity/Vol] 97 U/L High 7 - 38 U/L [facility] Anion gap [Moles/Vol] 11 mmol/L 8 - 15 mmol/L [facility] AST [Catalytic activity/Vol] 59 U/L High 13 - 35 U/L [facility] Bilirubin [Mass/Vol] 0.7 mg/dL 0.2 - 1 .3 mg/dL [facility] Calcium [Mass/Vol] 9.7 mg/dL 8.5 - 10. 2 mg/dL [facility] Chloride [Moles/Vol] 104 mmol/L 98 - 10 7 mmol/L [facility] CO2 [Moles/Vol] 26 mmol/L 22 - 30 mmol/L [facility] Creatinine [Mass/Vol] 0.43 mg/dL Low 0.58 - 0.96 mg/dL [facility] GFR/1.73 sq M.predicted among non-blacks MDRD (S/P/Bld) [Vol rate/Area] 127 mL/min/{1.73_m2} - PINF [facility] Comment on above: Estimated Glomerular Filtration Rate (eGFR) is calculated using the 2020 CKD-EPI creatinine equation. This equation utilizes serum creatinine, sex, and age as parameters. The creatinine assay has traceable calibration to isotope dilution-mass spectrometry. Refer to KDIGO guidelines for clinical interpretation. In patients with unstable renal function, e.g. those with acute kidney injury, the eGFR may not accurately reflect actual GFR. Glucose [Mass/Vol] 115 mg/dL High 74 - 99 mg/dL [facility] Comment on above: The [place] [employer] (ADA) provides guidance for cutoff values for fasting glucose and random glucose. The ADA defines fasting as no caloric intake for at least 8 hours. Fasting plasma glucose results between 100 to 125 mg/dL indicate increased risk for diabetes (prediabetes). Fasting plasma glucose results greater than or equal to 126 mg/dL meet the criteria for diagnosis of diabetes. In the absence of unequivocal hyperglycemia, results should be confirmed by repeat testing. In a patient with classic symptoms of hyperglycemia or hyperglycemic crisis, random plasma glucose results greater than or equal to 200 mg/dL meet the criteria for diagnosis of diabetes. Reference: Standards of Medical Care in Diabetes 2016, [place] [employer]. Diabetes Care. 2016.39(Suppl 1). Interpretation and review of laboratory results Abnormal [facility] Potassium [Moles/Vol] 4.3 mmol/L 3.7 - 5.1 mmol/L [facility] Protein [Mass/Vol] 8.0 g/dL 6.3 - 8.0 g/dL [facility] Sodium [Moles/Vol] 141 mmol/L 136 - 144 mmol/L [facility] Urea nitrogen [Mass/Vol] 16 mg/dL 7 - 21 mg/dL [facility] Laboratory - Hematology and Cell countson 06-04-2024 Basophils/100 WBC (Bld) 0.6 % [facility] Eosinophils/100 WBC (Bld) 0.4 % [facility] Erythrocyte distribution width (RBC) [Ratio] 28.1 % High 11.5 - 15.0 % [facility] Hematocrit (Bld) [Volume fraction] 33.6 % Low 36.0 - 46.0 % [facility] Hemoglobin (Bld) [Mass/Vol] 9.9 g/dL Low 11.5 - 15.5 g/dL [facility] Lymphocytes/100 WBC (Bld) 12.4 % [facility] MCH (RBC) [Entitic mass] 25.8 pg Low 26.0 - 34.0 pg [facility] MCHC (RBC) [Mass/Vol] 29.5 g/dL Low 30.5 - 36.0 g/dL [facility] MCV (RBC) [Entitic vol] 87.5 fL 80.0 - 100.0 fL [facility] Monocytes/100 WBC (Bld) 5.0 % [facility] Neutrophils/100 WBC (Bld) 80.5 % [facility] RBC (Bld) [#/Vol] 3.84 10*6/uL Low 3.90 - 5.2 0 m/uL [facility] No Panel Informationon 06-04 Interpretation and review of laboratory results Abnormal [facility] URINE CULTURE, ROUTINEon Bacteria identified Cx Nom (U) Urine Culture, Routine [facility] Bacteria identified Cx Nom (U) Culture shows less than 10,000 colony forming units of bacteria per [facility] Bacteria identified Cx Nom (U) milliliter of urine. This colony count is not generally considered [facility] Bacteria identified Cx Nom (U) to be clinically significant. [facility] Bacteria identified Cx Nom (U) Performed at: - [facility] Bacteria identified Cx Nom (U) [address] [place] [address] [phone] [facility] Bacteria identified Cx Nom (U) Rejected Items Clerk: Yair Arreola PhD, Phone: [phone] [facility] CBC W Auto Differential pane l (Bld)on 05-28-2024 Anisocytosis Ql (Bld) Present [facility] Basophils (Bld) [#/Vol] 0.00 10*3/uL [facility] Basophils/100 WBC (Bld) 0.0 % [facility] Dacrocytes LM Ql (Bld) Few [facility] Differential cell count method Nom (Bld) Manual [facility] Eosinophils (Bld) [#/Vol] 0.00 10*3/uL [facility] Eosinophils/100 WBC (Bld) 0.0 % [facility] Erythrocyte distribution width (RBC) [Ratio] 30.2 % High 11.5 - 15.0 % [facility] Hematocrit (Bld) [Volume fraction] 33.5 % Low 36.0 - 46.0 % [facility] Hemoglobin (Bld) [Mass/Vol] 10.4 g/dL Low 11.5 - 15.5 g/dL [facility] Interpretation and review of laboratory results Abnormal [facility] Lymphocytes (Bld) [#/Vol] 4.59 10*3/uL High [facility] Lymphocytes/100 WBC (Bld) 14.0 % [facility] MCH (RBC) [Entitic mass] 27.0 pg 26.0 - 34.0 pg [facility] MCHC (RBC) [Mass/Vol] 31.0 g/dL 30.5 - 36.0 g/dL [facility] MCV (RBC) [Entitic vol] 87.0 fL 80.0 - 100.0 fL [facility] [place] % 1.0 % [facility] Monocytes (Bld) [#/Vol] 4.27 10*3/uL High NINF [facility] Monocytes/100 WBC (Bld) 13.0 % [facility] Myelo % 2.0 % [facility] Neutrophils (Bld) [#/Vol] 22.97 10*3/uL High [facility] Neutrophils/100 WBC (Bld) 70.0 % [facility] Nucleated RBC (Bld) [#/Vol] [facility] Nucleated RBC/100 WBC (Bld) [Ratio] 0.0 % /100 WBC [facility] Ovalocytes LM Ql (Bld) Few [facility] Platelet clump LM Ql (Bld) Present [facility] Platelet mean volume (Bld) [Entitic vol] 9.4 fL 9.0 - 12.7 fL [facility] Platelets (Bld) [#/Vol] 256 10*3/uL [facility] Platelets Estimate (Bld) [#/Vol] Adequate [facility] Polychromasia LM Ql (Bld) Slight [facility] RBC (Bld) [#/Vol] 3.85 10*6/uL Low 3.90 - 5.2 0 m/uL [facility] Red Cell Morph Reviewed: see result s of individual morphologies [facility] WBC (Bld) [#/Vol] 32.82 10*3/uL High [facility] Comment on above: No clot detected.Res ults checked and verified. WBC Left Shift Ql (Bld) Present [facility] This is an appended report. These results have been appended to a previously verified report. [facility] COMP METAB 2000 PNL SERP Jordi 05-28-2024 [facility] AST SERPL-CCNC 90 U/L High 13 - 35 U/L [facility] BILIRUB SERPL-MCNC 1.3 mg/dL 0.2 - 1.3 mg/dL [facility] PROT SERPL-MCNC 7.0 g/dL 6.3 - 8. 0 g/dL [facility] GFR/1.73 sq M.predicted CKD-EPI (S/P/Bld) [Vol rate/Area] 126 - PINF [facility] Comment on above: Estimated Glomerular Filtration Rate (eGFR) is calculated using the 2020 CKD-EPI creatinine equation. This equation utilizes serum creatinine, sex, and age as parameters. The creatinine assay has traceable calibration to isotope dilution-mass spectrometry. Refer to KDIGO guidelines for clinical interpretation. In patients with unstable renal function, e.g. those with acute kidney injury, the eGFR may not accurately reflect actual GFR. Comprehensive metabolic 2000 panelon 05-28-2024 AST [Catalytic activity/Vol] 90 U/L High 13 - 35 U/L [facility] Bilirubin [Mass/Vol] 1.3 mg/dL 0.2 - 1 .3 mg/dL [facility] GFR/1.73 sq M.predicted among non-blacks MDRD (S/P/Bld) [Vol rate/Area] 126 mL/min/{1.73_m2} - PINF [facility] Comment on above: Estimated Glomerular Filtration Rate (eGFR) is calculated using the 2020 CKD-EPI creatinine equation. This equation utilizes serum creatinine, sex, and age as parameters. The creatinine assay has traceable calibration to isotope dilution-mass spectrometry. Refer to KDIGO guidelines for clinical interpretation. In patients with unstable renal function, e.g. those with acute kidney injury, the eGFR may not accurately reflect actual GFR. Protein [Mass/Vol] 7.0 g/dL 6.3 - 8.0 g/dL [facility] Laboratory - Chemistry and C hemistry - challengeon 05-28-2024 Albumin [Mass/Vol] 3.8 g/dL Low 3.9 - 4.9 g/dL [facility] ALP [Catalytic activity/Vol] 392 U/L High 34 - 123 U/L [facility] ALT [Catalytic activity/Vol] 201 U/L High 7 - 38 U/L [facility] Anion gap [Moles/Vol] 10 mmol/L 8 - 15 mmol/L [facility] Calcium [Mass/Vol] 9.2 mg/dL 8.5 - 10. 2 mg/dL [facility] Chloride [Moles/Vol] 104 mmol/L 98 - 10 7 mmol/L [facility] CO2 [Moles/Vol] 27 mmol/L 22 - 30 mmol/L [facility] Creatinine [Mass/Vol] 0.45 mg/dL Low 0.58 - 0.96 mg/dL [facility] Glucose [Mass/Vol] 139 mg/dL High 74 - 99 mg/dL [facility] Comment on above: The [place] Diab[employer] s Association (ADA) provides guidance for cutoff values for fasting glucose and random glucose. The ADA defines fasting as no caloric intake for at least 8 hours. Fasting plasma glucose results between 100 to 125 mg/dL indicate increased risk for diabetes (prediabetes). Fasting plasma glucose results greater than or equal to 126 mg/dL meet the criteria for diagnosis of diabetes. In the absence of unequivocal hyperglycemia, results should be confirmed by repeat testing. In a patient with classic symptoms of hyperglycemia or hyperglycemic crisis, random plasma glucose results greater than or equal to 200 mg/dL meet the criteria for diagnosis of diabetes. Reference: Standards of Medical Care in Diabetes 2016, [place] [employer]. Diabetes Care. 2016.39(Suppl 1). Magnesium [Mass/Vol] 2.1 mg/dL 1.7 - 2 .3 mg/dL [facility] Potassium [Moles/Vol] 4.2 mmol/L 3.7 - 5.1 mmol/L [facility] Sodium [Moles/Vol] 141 mmol/L 136 - 144 mmol/L [facility] Urea nitrogen [Mass/Vol] 15 mg/dL 7 - 21 mg/dL [facility] Magnesium [Mass/Vol]on 05-28 Interpretation and review of laboratory results Normal [facility] No Panel Informationon 05-28 Interpretation and review of laboratory results Abnormal [facility] Specimen Type: BLOOD SPECIMEN Ordering Facility: [facility] Address: [address] [place] [id number] Original Ordering Provider: MARCELINA [facility] XR Chest PA and Lateralon IMPRESSION: See result. 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 Right PICC line in distal SVC. Lungs and pleura: No consolidation. No lung mass. No pleural effusion. No pneumothorax. Cardiomediastinal silhouette: Stable enlarged cardiomediastinal silhouette. Widened mediastinum in keeping with enlarged mediastinal lymph nodes. Bones and soft tissues: Unremarkable. 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 Right PICC line in distal SVC. Lungs and pleura: No consolidation. No lung mass. No pleural effusion. No pneumothorax. Cardiomediastinal silhouette: Stable enlarged cardiomediastinal silhouette. Widened mediastinum in keeping with enlarged mediastinal lymph nodes. Bones and soft tissues: Unremarkable. IMPRESSION IMPRESSION: See result. Appraiser Art: DALIA Transcribe Date/Time: May 28 2024 1:45P Dictated by : CRISTIAN STORY MD This examination was interpreted and the report reviewed and electronically signed by: CRISTIAN STORY MD on May 28 2024 1:47PM EST [facility] Radiology Study observation (narrative) [facility] XR Chest PA and LateralOrder ed By: [facility] Provider on 05-28-2024 [facility] Orders Onlyon 04-28-2024 Orders Only [id number] Sonya Meyer 1985 F Date Provider Department Center 04/28/2024 [id number], HISTORICAL DCC ONC DCC No family history on file Normal [facility] 30on 04-17-2024 30 The patient is Moder ately Stable - Low risk of patient condition declining or worsening The patient's goals for the shift include rest The clinical goals for the shift include stable vitals and labs, comfort, safety Normal [facility] Yolie 04-17-2024 ALT [Catalytic activity/Vol] 211 U/L High 7-52 [facility] Comment on above: Performed By: #### L [id number] ####[facility] (BEAKER)[address] [place] [address] ANTI-XA (HEPARIN LEVEL)on HEPARIN UNFRACTIONATED (U/ML) IN PPP BY CHROMOGENIC METHOD 0.83 IU/mL High 0.3-0.7 [facility] Comment on above: Result Comment: Mai roxaban and Apixaban will interfere with the anti Xa assay used to monitor UFH and LMWH. Performed By: #### L [id number] ####[facility] (BEAKER)[address] [place] [address] HEPARIN UNFRACTIONATED (U/ML) IN PPP BY CHROMOGENIC METHOD 0.76 IU/mL High 0.3-0.7 [facility] Comment on above: Result Comment: Mai roxaban and Apixaban will interfere with the anti Xa assay used to monitor UFH and LMWH. Performed By: #### L [id number] ####[facility] (BEAKER)[address] [facility] [place] [address] Shannan 04-17-2024 AST [Catalytic activity/Vol] 47 U/L High 13-39 [facility] Comment on above: Performed By: #### L [id number] ####[facility] ([facility])[address] [place] [address] BASIC METABOLIC PANELon 07- Anion gap [Moles/Vol] 11 mmol/L Normal 7-20 [facility] Comment on above: Performed By: #### L [id number] ####[facility] ([facility])[address] [place] [address] Calcium [Mass/Vol] 9.0 mg/dL Normal 8.6-10.3 [facility] Comment on above: Performed By: #### L [id number] ####[facility] ([facility])[address] [place] [address] Chloride [Moles/Vol] 103 mmol/L Normal 98-107 [facility] Comment on above: Performed By: #### L [id number] ####[facility] ([facility])[address] [place] [address] CO2 [Moles/Vol] 29 mmol/L Normal 21-31 [facility] Comment on above: Performed By: #### L [id number] ####[facility] ([facility])[address] [place] [address] Creatinine [Mass/Vol] 0.40 mg/dL Low 0.60-1.20 [facility] Comment on above: Performed By: #### L [id number] ####[facility] ([facility])[address] [place] [address] GLOMERULAR FILTRATION RATE ML/MIN/1.73 SQ M.PREDICTED 129.0 mL/min/1.73m*2 Normal >60.0 [facility] Comment on above: Result Comment: The [facility]???s estimated glomerular filtration rate (eGFR) will no longer include consideration of race in its calculation. The National Kidney Foundation???s eGFR Task Force developed new recommendations for the estimation of the glomerular filtration rate in the [place] They recommend immediate implementation of the new equation refit without the race variable in all laboratories because the calculation does not include race. In addition to not including race in the calculation and reporting, it included diversity in its development, and has acceptable performance characteristics and potential consequences that do not disproportionately affect any one group of individuals. Performed By: #### L [id number] ####[facility] ([facility])[address] [place] [address] Glucose [Mass/Vol] 104 mg/dL High 70-100 [facility] Comment on above: Performed By: #### L [id number] ####[facility] ([facility])[address] [place] [address] Potassium [Moles/Vol] 4.1 mmol/L Normal 3.5-5.1 [facility] Comment on above: Performed By: #### L [id number] ####[facility] ([facility])[address] [place] [address] Sodium [Moles/Vol] 139 mmol/L Normal 136-145 [facility] Comment on above: Performed By: #### L [id number] ####[facility] ([facility])[address] [place] [address] Urea nitrogen [Mass/Vol] 17 mg/dL Normal 7-25 [facility] Comment on above: Performed By: #### L [id number] ####[facility] ([facility])[address] [place] [address] UREA NITROGEN/CREATININE (MASS RATIO) IN SER/PLAS 42.5 Normal [facility] Comment on above: Performed By: #### L [id number] ####[facility] ([facility])[address] [place] [address] BILIRUBIN, TOTALon Bilirubin [Mass/Vol] 0.7 mg/dL Normal 0.3-1.0 [facility] Comment on above: Performed By: #### L [id number] ####[facility] ([facility])[address] [place] [address] BLOOD CULTUREon 04-17-2024 Bacteria identified Cx Nom (Bld) No growth at 5 days Normal [facility] Comment on above: Performed By: #### L [id number] ####[facility] ([facility])[address] [place] [address] CBC WITH AUTO DIFFERENTIALon 04-17-2024 Erythrocyte distribution width (RBC) [Ratio] 16.4 % High 11.5-15.0 [facility] Comment on above: Performed By: #### L [id number] ####[facility] ([facility])[address] [place] [address] ERYTHROCYTE MEAN CORPUSCULAR HEMOGLOBIN CONCENTRATION (G/DL) BY AUTOMATED 31.7 g/dL Low 32.0-35.0 [facility] Comment on above: Performed By: #### L [id number] ####[facility] ([facility])[address] [place] [address] Hematocrit (Bld) [Volume fraction] 36.9 % Normal 36.0-48.0 [facility] Comment on above: Performed By: #### L [id number] ####[facility] ([facility])[address] [place] [address] Hemoglobin (Bld) [Mass/Vol] 11.7 g/dL Low 12.0-15.0 [facility] Comment on above: Performed By: #### L [id number] ####[facility] ([facility])[address] [place] [address] MCH (RBC) [Entitic mass] 25.2 pg Low 27.0-33.0 [facility] Comment on above: Performed By: #### L [id number] ####[facility] ([facility])[address] [place] [address] MCV (RBC) [Entitic vol] 79.5 fL Low 82.0-98.0 [facility] Comment on above: Performed By: #### L [id number] ####[facility] ([facility])[address] [place] [address] NRBC (PER 100 WBCS) BY AUTOMATED COUNT 0.1 % High 0 [facility] Comment on above: Performed By: #### L [id number] ####[facility] (BEAKER)[address] [place] [address] PLATELETS (10*3/UL) IN BLOOD AUTOMATED COUNT 255 10*3/uL Normal 150-400 [facility] Comment on above: Performed By: #### L [id number] ####[facility] (BEAKER)[address] [place] [address] RBC (Bld) [#/Vol] 4.64 10*6/uL Normal 3.80-5.00 [facility] Comment on above: Performed By: #### L [id number] ####[facility] ([facility])[address] [place], [place] [address] WBC (Bld) [#/Vol] 25.26 10*3/uL High 4.00-10.60 [facility] Comment on above: Performed By: #### L [id number] ####[facility] ([facility])[address] [place] [address] DSon 04-17-2024 DS Normal [facility] MANUAL DIFFERENTIALon 2023 BASOPHILS (10*3/UL) IN BLOOD BY CALCULATION 0.00 10*3/uL Normal 0.00-0.20 [facility] Comment on above: Performed By: #### L [id number] ####[facility] ([facility])[address] [place] [address] BASOPHILS/100 LEUKOCYTES IN BLOOD BY AUTOMATED COUNT 0.0 % Normal 0.0-1.0 [facility] Comment on above: Performed By: #### L [id number] ####[facility] (BE[facility]ER)[address] [place] [address] EOSINOPHILS (10*3/UL) IN BLOOD BY CALCULATION 0.00 10*3/uL Normal 0.00-0.50 [facility] Comment on above: Performed By: #### L [id number] ####[facility] ([facility]ER)[address] [place] [address] EOSINOPHILS/100 LEUKOCYTES IN BLOOD BY AUTOMATED COUNT 0.0 % Normal 0.0-6.0 [facility] Comment on above: Performed By: #### L [id number] ####[facility] ([facility])[address] [place] [address] LYMPHOCYTES (10*3/UL) IN BLOOD BY CALCULATION 2.35 10*3/uL Normal 1.20-4.00 [facility] Comment on above: Performed By: #### L [id number] ####[facility] ([facility])[address] [place] [address] LYMPHOCYTES/100 LEUKOCYTES IN BLOOD BY AUTOMATED COUNT 9.3 % Low 20.0-45.0 [facility] Comment on above: Performed By: #### L [id number] ####[facility] ([facility])[address] [place] [address] METAMYELOCYTES (10*3/UL) IN BLOOD BY CALCULATION 0.33 10*3/uL High 0.00 [facility] Comment on above: Performed By: #### L [id number] ####[facility] ([facility])[address] [place] [address] METAMYELOCYTES/100 LEUKOCYTES IN BLOOD CELLAVISION 1.3 % High 0.0-0.0 [facility] Comment on above: Performed By: #### L [id number] ####[facility] ([facility])[address] [place] [address] MONOCYTES (10*3/UL) IN BLOOD BY CALCUATION 1.01 10*3/uL High 0.10-1.00 [facility] Comment on above: Performed By: #### L [id number] ####[facility] ([facility])[address] [place] [address] MONOCYTES/100 LEUKOCYTES IN BLOOD BY AUTOMATED COUNT 4.0 % Low 5.0-12.0 [facility] Comment on above: Performed By: #### L [id number] ####[facility] ([facility])[address] [place] [address] MYELOCYTES (10*3/UL) IN BLOOD BY CALCULATION 0.18 10*3/uL High 0.00 [facility] Comment on above: Performed By: #### L [id number] ####[facility] ([facility])[address] [place] [address] MYELOCYTES/100 LEUKOCYTES IN BLOOD CELLAVISION 0.7 % High 0.0-0.0 [facility] Comment on above: Performed By: #### L [id number] ####[facility] ([facility])[address] [place] [address] NEUTROPHILS (10*3/UL) IN BLOOD BY CALCULATION 21.4 10*3/uL High 1.6-7.6 [facility] Comment on above: Performed By: #### L [id number] ####[facility] ([facility])[address] [place] [address] NEUTROPHILS/100 LEUKOCYTES IN BLOOD BY AUTOMATED COUNT 84.7 % High 40.0-72.0 [facility] Comment on above: Performed By: #### L [id number] ####[facility] ([facility])[address] [place] [address] PLASMA CELLS/100 LEUKOCYTES IN BLOOD 0 % Normal 0 [facility] Comment on above: Performed By: #### L [id number] ####[facility] ([facility])[address] [place] [address] PLATELETS GIANT PRESENCE IN BLOOD BY LIGHT MICROSCOPY Present Normal [facility] Comment on above: Performed By: #### L [id number] ####[facility] ([facility])[address] [place] [address] VARIANT LYMPHOCYTES (10*3/UL) IN BLOOD BY CALCULATION 0.00 10*3/uL Normal 0.00 [facility] Comment on above: Performed By: #### L [id number] ####[facility] ([facility])[address] [place] [address] VARIANT LYMPHOCYTES/100 LEUKOCYTES IN BLOOD CELLAVISION 0.0 % Normal 0.0-0.0 [facility] Comment on above: Performed By: #### L [id number] ####[facility] ([facility])[address] [place] [address] NURSNOTEon 04-17-2024 NURSNOTE Spoke to Anabell ANGELES [facility] to give report, all questions answered. Normal [facility] 30on 04-16-2024 30 Normal [facility] ANTI-XA (HEPARIN LEVEL)on HEPARIN UNFRACTIONATED (U/ML) IN PPP BY CHROMOGENIC METHOD 0.71 IU/mL High 0.3-0.7 [facility] Comment on above: Result Comment: Mai roxaban and Apixaban will interfere with the anti Xa assay used to monitor UFH and LMWH. Performed By: #### L [id number] ####[facility] ([facility])[address] [place] [address] BASIC METABOLIC PANELon 04-05 Anion gap [Moles/Vol] 9 mmol/L Normal 7-20 [facility] Comment on above: Performed By: #### L [id number] ####[facility] ([facility])[address] [place] [address] Calcium [Mass/Vol] 8.7 mg/dL Normal 8.6-10.3 [facility] Comment on above: Performed By: #### L [id number] ####[facility] ([facility])[address] [place] [address] Chloride [Moles/Vol] 103 mmol/L Normal 98-107 [facility] Comment on above: Performed By: #### L [id number] ####[facility] ([facility])[address] [place] [address] CO2 [Moles/Vol] 28 mmol/L Normal 21-31 [facility] Comment on above: Performed By: #### L [id number] ####[facility] ([facility])[address] [place] [address] Creatinine [Mass/Vol] 0.37 mg/dL Low 0.60-1.20 [facility] Comment on above: Performed By: #### L [id number] ####[facility] ([facility])[address] [place] [address] GLOMERULAR FILTRATION RATE ML/MIN/1.73 SQ M.PREDICTED 131.5 mL/min/1.73m*2 Normal >60.0 [facility] Comment on above: Result Comment: The [facility]???s estimated glomerular filtration rate (eGFR) will no longer include consideration of race in its calculation. The National Kidney Foundation???s eGFR Task Force developed new recommendations for the estimation of the glomerular filtration rate in the [place] They recommend immediate implementation of the new equation refit without the race variable in all laboratories because the calculation does not include race. In addition to not including race in the calculation and reporting, it included diversity in its development, and has acceptable performance characteristics and potential consequences that do not disproportionately affect any one group of individuals. Performed By: #### L [id number] ####[facility] ([facility])[address] [place] [address] Glucose [Mass/Vol] 116 mg/dL High 70-100 [facility] Comment on above: Performed By: #### L [id number] ####[facility] ([facility])[address] [place] [address] Potassium [Moles/Vol] 4.1 mmol/L Normal 3.5-5.1 [facility] Comment on above: Performed By: #### L [id number] ####[facility] ([facility])[address] [place] [address] Sodium [Moles/Vol] 136 mmol/L Normal 136-145 [facility] Comment on above: Performed By: #### L [id number] ####[facility] ([facility])[address] [place] [address] Urea nitrogen [Mass/Vol] 13 mg/dL Normal 7-25 [facility] Comment on above: Performed By: #### L [id number] ####[facility] ([facility])[address] [place] [address] UREA NITROGEN/CREATININE (MASS RATIO) IN SER/PLAS 35.1 Normal [facility] Comment on above: Performed By: #### L [id number] ####[facility] ([facility])[address] [place] [address] CBC WITH AUTO DIFFERENTIALon 04-16-2024 Erythrocyte distribution width (RBC) [Ratio] 15.9 % High 11.5-15.0 [facility] Comment on above: Performed By: #### L [id number] ####[facility] ([facility])[address] [place] [address] ERYTHROCYTE MEAN CORPUSCULAR HEMOGLOBIN CONCENTRATION (G/DL) BY AUTOMATED 31.3 g/dL Low 32.0-35.0 [facility] Comment on above: Performed By: #### L [id number] ####[facility] ([facility])[address] [place] [address] Hematocrit (Bld) [Volume fraction] 36.1 % Normal 36.0-48.0 [facility] Comment on above: Performed By: #### L [id number] ####[facility] ([facility])[address] [place] [address] Hemoglobin (Bld) [Mass/Vol] 11.3 g/dL Low 12.0-15.0 [facility] Comment on above: Performed By: #### L [id number] ####[facility] ([facility])[address] [place] [address] MCH (RBC) [Entitic mass] 24.5 pg Low 27.0-33.0 [facility] Comment on above: Performed By: #### L [id number] ####[facility] ([facility])[address] [place] [address] MCV (RBC) [Entitic vol] 78.3 fL Low 82.0-98.0 [facility] Comment on above: Performed By: #### L [id number] ####[facility] ([facility])[address] [place] [address] NRBC (PER 100 WBCS) BY AUTOMATED COUNT 0.0 % Normal 0 [facility] Comment on above: Performed By: #### L [id number] ####[facility] ([facility])[address] [place] [address] PLATELETS (10*3/UL) IN BLOOD AUTOMATED COUNT 218 10*3/uL Normal 150-400 [facility] Comment on above: Performed By: #### L [id number] ####[facility] ([facility])[address] [place] [address] RBC (Bld) [#/Vol] 4.61 10*6/uL Normal 3.80-5.00 [facility] Comment on above: Performed By: #### L [id number] ####[facility] ([facility])[address] [place] [address] WBC (Bld) [#/Vol] 15.18 10*3/uL High 4.00-10.60 [facility] Comment on above: Performed By: #### L [id number] ####[facility] ([facility])[address] [place] [address] LACTATE DEHYDROGENASEon 04-05 LACTATE DEHYDROGENASE (U/L) IN SER/PLAS BY LAC->PYR RXN 514 U/L High 140-271 [facility] Comment on above: Performed By: #### L [id number] ####[facility] ([facility])[address] [place] [address] MAGNESIUMon 04-16-2024 Magnesium [Mass/Vol] 2.0 mg/dL Normal 1.9-2.7 [facility] Comment on above: Performed By: #### L [id number] ####[facility] ([facility])[address] [place] [address] MANUAL DIFFERENTIALon 2023 BASOPHILS (10*3/UL) IN BLOOD BY CALCULATION 0.00 10*3/uL Normal 0.00-0.20 [facility] Comment on above: Performed By: #### L [id number] ####[facility] ([facility])[address] [place] [address] BASOPHILS/100 LEUKOCYTES IN BLOOD BY AUTOMATED COUNT 0.0 % Normal 0.0-1.0 [facility] Comment on above: Performed By: #### L [id number] ####[facility] ([facility])[address] [place] [address] EOSINOPHILS (10*3/UL) IN BLOOD BY CALCULATION 0.11 10*3/uL Normal 0.00-0.50 [facility] Comment on above: Performed By: #### L [id number] ####[facility] ([facility])[address] [place] [address] EOSINOPHILS/100 LEUKOCYTES IN BLOOD BY AUTOMATED COUNT 0.7 % Normal 0.0-6.0 [facility] Comment on above: Performed By: #### L [id number] ####[facility] ([facility])[address] [place] [address] LYMPHOCYTES (10*3/UL) IN BLOOD BY CALCULATION 1.21 10*3/uL Normal 1.20-4.00 [facility] Comment on above: Performed By: #### L [id number] ####[facility] ([facility])[address] [place] [address] LYMPHOCYTES/100 LEUKOCYTES IN BLOOD BY AUTOMATED COUNT 8.0 % Low 20.0-45.0 [facility] Comment on above: Performed By: #### L [id number] ####[facility] ([facility])[address] [place] [address] METAMYELOCYTES (10*3/UL) IN BLOOD BY CALCULATION 0.11 10*3/uL High 0.00 [facility] Comment on above: Performed By: #### L [id number] ####[facility] ([facility])[address] [place] [address] METAMYELOCYTES/100 LEUKOCYTES IN BLOOD CELLAVISION 0.7 % High 0.0-0.0 [facility] Comment on above: Performed By: #### L [id number] ####[facility] ([facility])[address] [place] [address] MONOCYTES (10*3/UL) IN BLOOD BY CALCUATION 0.52 10*3/uL Normal 0.10-1.00 [facility] Comment on above: Performed By: #### L [id number] ####[facility] ([facility])[address] [place] [address] MONOCYTES/100 LEUKOCYTES IN BLOOD BY AUTOMATED COUNT 3.4 % Low 5.0-12.0 [facility] Comment on above: Performed By: #### L [id number] ####[facility] ([facility])[address] [place] [address] MYELOCYTES (10*3/UL) IN BLOOD BY CALCULATION 0.30 10*3/uL High 0.00 [facility] Comment on above: Performed By: #### L [id number] ####[facility] ([facility])[address] [place] [address] MYELOCYTES/100 LEUKOCYTES IN BLOOD CELLAVISION 2.0 % High 0.0-0.0 [facility] Comment on above: Performed By: #### L [id number] ####[facility] ([facility])[address] [place] [address] NEUTROPHILS (10*3/UL) IN BLOOD BY CALCULATION 12.9 10*3/uL High 1.6-7.6 [facility] Comment on above: Performed By: #### L [id number] ####[facility] ([facility])[address] [place] [address] NEUTROPHILS/100 LEUKOCYTES IN BLOOD BY AUTOMATED COUNT 85.2 % High 40.0-72.0 [facility] Comment on above: Performed By: #### L [id number] ####[facility] ([facility])[address] [place] [address] PLASMA CELLS/100 LEUKOCYTES IN BLOOD 0 % Normal 0 [facility] Comment on above: Performed By: #### L [id number] ####[facility] ([facility])[address] [place] [address] PLATELETS GIANT PRESENCE IN BLOOD BY LIGHT MICROSCOPY Present Normal [facility] Comment on above: Performed By: #### L [id number] ####[facility] ([facility])[address] [place] [address] VARIANT LYMPHOCYTES (10*3/UL) IN BLOOD BY CALCULATION 0.00 10*3/uL Normal 0.00 [facility] Comment on above: Performed By: #### L [id number] ####[facility] ([facility])[address] [place] [address] VARIANT LYMPHOCYTES/100 LEUKOCYTES IN BLOOD CELLAVISION 0.0 % Normal 0.0-0.0 [facility] Comment on above: Performed By: #### L [id number] ####[facility] ([facility])[address] [place] [address] PHOSPHORUSon 04-16-2024 Magnesium [Mass/Vol] 3.8 mg/dL Normal 2.5-5.0 [facility] Comment on above: Performed By: #### L [id number] ####[facility] ([facility])[address] [place] [address] URIC ACIDon 04-16-2024 URATE (MG/DL) IN SER/PLAS <1.5 Low 2.3-6.6 [facility] Comment on above: Performed By: #### L [id number] ####[facility] ([facility])[address] [place] [address] 30on 04-15-2024 30 Normal [facility] BASIC METABOLIC PANELon 04-05 Anion gap [Moles/Vol] 9 mmol/L Normal 7-20 [facility] Comment on above: Performed By: #### L [id number] ####[facility] ([facility])[address] [place] [address] Calcium [Mass/Vol] 8.6 mg/dL Normal 8.6-10.3 [facility] Comment on above: Performed By: #### L [id number] ####[facility] ([facility])[address] [place] [address] Chloride [Moles/Vol] 105 mmol/L Normal 98-107 [facility] Comment on above: Performed By: #### L [id number] ####[facility] ([facility])[address] [place] [address] CO2 [Moles/Vol] 27 mmol/L Normal 21-31 [facility] Comment on above: Performed By: #### L [id number] ####[facility] ([facility])[address] [place] [address] Creatinine [Mass/Vol] 0.35 mg/dL Low 0.60-1.20 [facility] Comment on above: Performed By: #### L [id number] ####[facility] ([facility])[address] [place] [address] GLOMERULAR FILTRATION RATE ML/MIN/1.73 SQ M.PREDICTED 133.3 mL/min/1.73m*2 Normal >60.0 [facility] Comment on above: Result Comment: The [facility]???s estimated glomerular filtration rate (eGFR) will no longer include consideration of race in its calculation. The National Kidney Foundation???s eGFR Task Force developed new recommendations for the estimation of the glomerular filtration rate in the [place] They recommend immediate implementation of the new equation refit without the race variable in all laboratories because the calculation does not include race. In addition to not including race in the calculation and reporting, it included diversity in its development, and has acceptable performance characteristics and potential consequences that do not disproportionately affect any one group of individuals. Performed By: #### L [id number] ####[facility] ([facility])[address] [place] [address] Glucose [Mass/Vol] 149 mg/dL High 70-100 [facility] Comment on above: Performed By: #### L [id number] ####[facility] ([facility])[address] [place] [address] Potassium [Moles/Vol] 3.9 mmol/L Normal 3.5-5.1 [facility] Comment on above: Performed By: #### L [id number] ####[facility] ([facility])[address] [place] [address] Sodium [Moles/Vol] 137 mmol/L Normal 136-145 [facility] Comment on above: Performed By: #### L [id number] ####[facility] ([facility])[address] [place] [address] Urea nitrogen [Mass/Vol] 17 mg/dL Normal 7-25 [facility] Comment on above: Performed By: #### L [id number] ####[facility] ([facility])[address] [place] [address] UREA NITROGEN/CREATININE (MASS RATIO) IN SER/PLAS 48.6 Normal [facility] Comment on above: Performed By: #### L [id number] ####[facility] ([facility])[address] [place] [address] CBC WITH AUTO DIFFERENTIALon 04-15-2024 Basophils (Bld) [#/Vol] 0.02 10*3/uL Normal 0.00-0.20 [facility] Comment on above: Performed By: #### L [id number] ####[facility] ([facility])[address] [place] [address] Basophils/100 WBC (Bld) 0.2 % Normal 0.0-1.0 [facility] Comment on above: Performed By: #### L [id number] ####[facility] ([facility])[address] [place] [address] Eosinophils (Bld) [#/Vol] 0.01 10*3/uL Normal 0.00-0.50 [facility] Comment on above: Performed By: #### L [id number] ####[facility] ([facility])[address] [place] [address] Eosinophils/100 WBC (Bld) 0.1 % Normal 0.0-6.0 [facility] Comment on above: Performed By: #### L [id number] ####[facility] ([facility])[address] [place] [address] Erythrocyte distribution width (RBC) [Ratio] 15.9 % High 11.5-15.0 [facility] Comment on above: Performed By: #### L [id number] ####[facility] ([facility])[address] [place] [address] ERYTHROCYTE MEAN CORPUSCULAR HEMOGLOBIN CONCENTRATION (G/DL) BY AUTOMATED 31.3 g/dL Low 32.0-35.0 [facility] Comment on above: Performed By: #### L [id number] ####[facility] ([facility])[address] [place] [address] Hematocrit (Bld) [Volume fraction] 36.4 % Normal 36.0-48.0 [facility] Comment on above: Performed By: #### L [id number] ####[facility] ([facility])[address] [place] [address] Hemoglobin (Bld) [Mass/Vol] 11.4 g/dL Low 12.0-15.0 [facility] Comment on above: Performed By: #### L [id number] ####[facility] ([facility])[address] [place] [address] Immature granulocytes (Bld) [#/Vol] 0.21 10*3/uL High 0.00-0.20 [facility] Comment on above: Performed By: #### L [id number] ####[facility] ([facility])[address] [place] [address] Immature granulocytes/100 WBC (Bld) 2.3 % High 0.0-1.0 [facility] Comment on above: Performed By: #### L [id number] ####[facility] ([facility])[address] [place] [address] Lymphocytes (Bld) [#/Vol] 0.99 10*3/uL Low 1.20-4.00 [facility] Comment on above: Performed By: #### L [id number] ####[facility] ([facility])[address] [place] [address] Lymphocytes/100 WBC (Bld) 10.6 % Low 20.0-45.0 [facility] Comment on above: Performed By: #### L [id number] ####[facility] ([facility])[address] [place] [address] MCH (RBC) [Entitic mass] 24.8 pg Low 27.0-33.0 [facility] Comment on above: Performed By: #### L [id number] ####[facility] ([facility])[address] [place] [address] MCV (RBC) [Entitic vol] 79.3 fL Low 82.0-98.0 [facility] Comment on above: Performed By: #### L [id number] ####[facility] ([facility])[address] [place] [address] Monocytes (Bld) [#/Vol] 0.94 10*3/uL Normal 0.10-1.00 [facility] Comment on above: Performed By: #### L [id number] ####[facility] ([facility])[address] [place] [address] Monocytes/100 WBC (Bld) 10.1 % Normal 5.0-12.0 [facility] Comment on above: Performed By: #### L [id number] ####[facility] ([facility])[address] [place] [address] Neutrophils (Bld) [#/Vol] 7.14 10*3/uL Normal 1.60-7.60 [facility] Comment on above: Performed By: #### L [id number] ####[facility] ([facility])[address] [place] [address] Neutrophils/100 WBC (Bld) 76.7 % High 40.0-72.0 [facility] Comment on above: Performed By: #### L [id number] ####[facility] ([facility])[address] [place] [address] NRBC (PER 100 WBCS) BY AUTOMATED COUNT 0.0 % Normal 0 [facility] Comment on above: Performed By: #### L [id number] ####[facility] ([facility])[address] [place] [address] PLATELETS (10*3/UL) IN BLOOD AUTOMATED COUNT 230 10*3/uL Normal 150-400 [facility] Comment on above: Performed By: #### L [id number] ####[facility] ([facility])[address] [place] [address] RBC (Bld) [#/Vol] 4.59 10*6/uL Normal 3.80-5.00 [facility] Comment on above: Performed By: #### L [id number] ####[facility] ([facility])[address] [place] [place] [address] WBC (Bld) [#/Vol] 9.31 10*3/uL Normal 4.00-10.60 [facility] Comment on above: Performed By: #### L [id number] ####[facility] ([facility])[address] [place] [address] LACTATE DEHYDROGENASEon 04-05 LACTATE DEHYDROGENASE (U/L) IN SER/PLAS BY LAC->PYR RXN 548 U/L High 140-271 [facility] Comment on above: Performed By: #### L [id number] ####[facility] ([facility])[address] [place] [address] MAGNESIUMon 04-15-2024 Magnesium [Mass/Vol] 1.8 mg/dL Low 1.9-2.7 [facility] Comment on above: Performed By: #### L [id number] ####[facility] ([facility])[address] [place] [address] NURSNOTEon 04-15-2024 NURSNOTE Normal [facility] PHOSPHORUSon 04-15-2024 Magnesium [Mass/Vol] 3.1 mg/dL Normal 2.5-5.0 [facility] Comment on above: Performed By: #### L [id number] ####[facility] ([facility])[address] [place] [address] URIC ACIDon 04-15-2024 URATE (MG/DL) IN SER/PLAS <1.5 Low 2.3-6.6 [facility] Comment on above: Performed By: #### L [id number] ####[facility] ([facility])[address] [place] [address] 30on 04-14-2024 30 Normal [facility] 30 Normal [facility] 30 Normal [facility] ANTI-XA (HEPARIN LEVEL)on HEPARIN UNFRACTIONATED (U/ML) IN PPP BY CHROMOGENIC METHOD 0.62 IU/mL Normal 0.3-0.7 [facility] Comment on above: Result Comment: Mai roxaban and Apixaban will interfere with the anti Xa assay used to monitor UFH and LMWH. Performed By: #### L [id number] ####[facility] ([facility])[address] [place] [address] BASIC METABOLIC PANELon 04-05 Anion gap [Moles/Vol] 10 mmol/L Normal 7-20 [facility] Comment on above: Performed By: #### L [id number] ####[facility] ([facility])[address] [place] [address] Calcium [Mass/Vol] 8.8 mg/dL Normal 8.6-10.3 [facility] Comment on above: Performed By: #### L [id number] ####[facility] ([facility])[address] [place] [address] Chloride [Moles/Vol] 104 mmol/L Normal 98-107 [facility] Comment on above: Performed By: #### L [id number] ####[facility] ([facility])[address] [place] [address] CO2 [Moles/Vol] 27 mmol/L Normal 21-31 [facility] Comment on above: Performed By: #### L [id number] ####[facility] ([facility])[address] [place] [address] Creatinine [Mass/Vol] 0.44 mg/dL Low 0.60-1.20 [facility] Comment on above: Performed By: #### L [id number] ####[facility] ([facility])[address] [place] [address] GLOMERULAR FILTRATION RATE ML/MIN/1.73 SQ M.PREDICTED 126.1 mL/min/1.73m*2 Normal >60.0 [facility] Comment on above: Result Comment: The [facility]???s estimated glomerular filtration rate (eGFR) will no longer include consideration of race in its calculation. The National Kidney Foundation???s eGFR Task Force developed new recommendations for the estimation of the glomerular filtration rate in the [place] They recommend immediate implementation of the new equation refit without the race variable in all laboratories because the calculation does not include race. In addition to not including race in the calculation and reporting, it included diversity in its development, and has acceptable performance characteristics and potential consequences that do not disproportionately affect any one group of individuals. Performed By: #### L [id number] ####[facility] ([facility])[address] [facility] [place] [address] Glucose [Mass/Vol] 87 mg/dL Normal 70-100 [facility] Comment on above: Performed By: #### L [id number] ####[facility] ([facility])[address] [place] [address] Potassium [Moles/Vol] 4.0 mmol/L Normal 3.5-5.1 [facility] Comment on above: Performed By: #### L [id number] ####[facility] ([facility])[address] [place] [address] Sodium [Moles/Vol] 137 mmol/L Normal 136-145 [facility] Comment on above: Performed By: #### L [id number] ####[facility] ([facility])[address] [place] [address] Urea nitrogen [Mass/Vol] 15 mg/dL Normal 7-25 [facility] Comment on above: Performed By: #### L [id number] ####[facility] ([facility])[address] [place] [address] UREA NITROGEN/CREATININE (MASS RATIO) IN SER/PLAS 34.1 Normal [facility] Comment on above: Performed By: #### L [id number] ####[facility] ([facility])[address] [place] [address] CBC WITH AUTO DIFFERENTIALon 04-14-2024 Basophils (Bld) [#/Vol] 0.02 10*3/uL Normal 0.00-0.20 [facility] Comment on above: Performed By: #### L [id number] ####[facility] ([facility])[address] [place] [address] Basophils/100 WBC (Bld) 0.2 % Normal 0.0-1.0 [facility] Comment on above: Performed By: #### L [id number] ####[facility] ([facility])[address] [place] [address] Eosinophils (Bld) [#/Vol] 0.00 10*3/uL Normal 0.00-0.50 [facility] Comment on above: Performed By: #### L [id number] ####[facility] ([facility])[address] [place] [address] Eosinophils/100 WBC (Bld) 0.0 % Normal 0.0-6.0 [facility] Comment on above: Performed By: #### L [id number] ####[facility] ([facility])[address] [place] [address] Erythrocyte distribution width (RBC) [Ratio] 15.8 % High 11.5-15.0 [facility] Comment on above: Performed By: #### L [id number] ####[facility] ([facility])[address] [place] [address] ERYTHROCYTE MEAN CORPUSCULAR HEMOGLOBIN CONCENTRATION (G/DL) BY AUTOMATED 31.2 g/dL Low 32.0-35.0 [facility] Comment on above: Performed By: #### L [id number] ####[facility] ([facility])[address] [place] [address] Hematocrit (Bld) [Volume fraction] 37.8 % Normal 36.0-48.0 [facility] Comment on above: Performed By: #### L [id number] ####[facility] ([facility])[address] [place] [address] Hemoglobin (Bld) [Mass/Vol] 11.8 g/dL Low 12.0-15.0 [facility] Comment on above: Performed By: #### L [id number] ####[facility] ([facility])[address] [place] [address] Immature granulocytes (Bld) [#/Vol] 0.11 10*3/uL Normal 0.00-0.20 [facility] Comment on above: Performed By: #### L [id number] ####[facility] ([facility])[address] [place] [address] Immature granulocytes/100 WBC (Bld) 1.0 % Normal 0.0-1.0 [facility] Comment on above: Performed By: #### L [id number] ####[facility] ([facility])[address] [place] [address] Lymphocytes (Bld) [#/Vol] 0.94 10*3/uL Low 1.20-4.00 [facility] Comment on above: Performed By: #### L [id number] ####[facility] ([facility])[address] [place] [address] Lymphocytes/100 WBC (Bld) 8.3 % Low 20.0-45.0 [facility] Comment on above: Performed By: #### L [id number] ####[facility] ([facility])[address] [place] [address] MCH (RBC) [Entitic mass] 24.3 pg Low 27.0-33.0 [facility] Comment on above: Performed By: #### L [id number] ####[facility] ([facility])[address] [place] [address] MCV (RBC) [Entitic vol] 77.9 fL Low 82.0-98.0 [facility] Comment on above: Performed By: #### L [id number] ####[facility] ([facility])[address] [place] [address] Monocytes (Bld) [#/Vol] 1.24 10*3/uL High 0.10-1.00 [facility] Comment on above: Performed By: #### L [id number] ####[facility] ([facility])[address] [place] [address] Monocytes/100 WBC (Bld) 10.9 % Normal 5.0-12.0 [facility] Comment on above: Performed By: #### L [id number] ####[facility] ([facility])[address] [place] [address] Neutrophils (Bld) [#/Vol] 9.07 10*3/uL High 1.60-7.60 [facility] Comment on above: Performed By: #### L [id number] ####[facility] ([facility])[address] [place] [address] Neutrophils/100 WBC (Bld) 79.6 % High 40.0-72.0 [facility] Comment on above: Performed By: #### L [id number] ####[facility] ([facility])[address] [place] [address] NRBC (PER 100 WBCS) BY AUTOMATED COUNT 0.0 % Normal 0 [facility] Comment on above: Performed By: #### L [id number] ####[facility] ([facility])[address] [place] [address] PLATELETS (10*3/UL) IN BLOOD AUTOMATED COUNT 256 10*3/uL Normal 150-400 [facility] Comment on above: Performed By: #### L [id number] ####[facility] ([facility])[address] [place] [address] RBC (Bld) [#/Vol] 4.85 10*6/uL Normal 3.80-5.00 [facility] Comment on above: Performed By: #### L [id number] ####[facility] ([facility])[address] [place] [address] WBC (Bld) [#/Vol] 11.38 10*3/uL High 4.00-10.60 [facility] Comment on above: Performed By: #### L [id number] ####[facility] ([facility])[address] [place] [address] LACTATE DEHYDROGENASEon 04-05 LACTATE DEHYDROGENASE (U/L) IN SER/PLAS BY LAC->PYR RXN 630 U/L High 140-271 [facility] Comment on above: Performed By: #### L [id number] ####[facility] ([facility])[address] [place] [address] MAGNESIUMon 04-14-2024 Magnesium [Mass/Vol] 2.0 mg/dL Normal 1.9-2.7 [facility] Comment on above: Performed By: #### L [id number] ####[facility] ([facility])[address] [place] [address] PHOSPHORUSon 04-14-2024 Magnesium [Mass/Vol] 3.6 mg/dL Normal 2.5-5.0 [facility] Comment on above: Performed By: #### L [id number] ####[facility] ([facility])[address] [place] [address] URIC ACIDon 04-14-2024 Magnesium [Mass/Vol] 1.7 mg/dL Low 2.3-6.6 [facility] Comment on above: Performed By: #### L [id number] ####[facility] ([facility])[address] [place] [address] 30on 04-13-2024 30 Normal [facility] 30 The patient is Moder ately Unstable - Medium risk of patient condition declining or worsening The patient's goals for the shift include Stable V/S The clinical goals for the shift include Comfort Normal [facility] ANTI-XA (HEPARIN LEVEL)on HEPARIN UNFRACTIONATED (U/ML) IN PPP BY CHROMOGENIC METHOD 0.45 IU/mL Normal 0.3-0.7 [facility] Comment on above: Result Comment: Mai roxaban and Apixaban will interfere with the anti Xa assay used to monitor UFH and LMWH. Performed By: #### L [id number] ####[facility] ([facility])[address] [place] [address] APTTon 04-13-2024 ACTIVATED PARTIAL THROMBOPLASTIN TIME IN PPP BY COAGULATION ASSAY 68.7 Seconds High 25.0-35.0 [facility] Comment on above: Result Comment: Clin ical significance of the APTT is questionable in the presence of heparin. Performed By: #### L [id number] ####[facility] ([facility])[address] [place] [address] BASIC METABOLIC PANELon Anion gap [Moles/Vol] 11 mmol/L Normal 7-20 [facility] Comment on above: Performed By: #### L [id number] ####[facility] ([facility])[address] [place] [address] Calcium [Mass/Vol] 8.6 mg/dL Normal 8.6-10.3 [facility] Comment on above: Performed By: #### L [id number] ####[facility] ([facility])[address] [place] [address] Chloride [Moles/Vol] 104 mmol/L Normal 98-107 [facility] Comment on above: Performed By: #### L [id number] ####[facility] ([facility])[address] [place] [address] CO2 [Moles/Vol] 26 mmol/L Normal 21-31 [facility] Comment on above: Performed By: #### L [id number] ####[facility] ([facility])[address] [place] [address] Creatinine [Mass/Vol] 0.39 mg/dL Low 0.60-1.20 [facility] Comment on above: Performed By: #### L [id number] ####[facility] ([facility])[address] [place] [address] GLOMERULAR FILTRATION RATE ML/MIN/1.73 SQ M.PREDICTED 129.8 mL/min/1.73m*2 Normal >60.0 [facility] Comment on above: Result Comment: The [facility]???s estimated glomerular filtration rate (eGFR) will no longer include consideration of race in its calculation. The National Kidney Foundation???s eGFR Task Force developed new recommendations for the estimation of the glomerular filtration rate in the [place] They recommend immediate implementation of the new equation refit without the race variable in all laboratories because the calculation does not include race. In addition to not including race in the calculation and reporting, it included diversity in its development, and has acceptable performance characteristics and potential consequences that do not disproportionately affect any one group of individuals. Performed By: #### L [id number] ####[facility] ([facility])[address] [place] [address] Glucose [Mass/Vol] 104 mg/dL High 70-100 [facility] Comment on above: Performed By: #### L [id number] ####[facility] ([facility])[address] [place] [address] Potassium [Moles/Vol] 4.2 mmol/L Normal 3.5-5.1 [facility] Comment on above: Performed By: #### L [id number] ####[facility] ([facility])[address] [place] [address] Sodium [Moles/Vol] 137 mmol/L Normal 136-145 [facility] Comment on above: Performed By: #### L [id number] ####[facility] ([facility])[address] [place] [address] Urea nitrogen [Mass/Vol] 21 mg/dL Normal 7-25 [facility] Comment on above: Performed By: #### L [id number] ####[facility] ([facility])[address] [place] [address] UREA NITROGEN/CREATININE (MASS RATIO) IN SER/PLAS 53.8 Normal [facility] Comment on above: Performed By: #### L [id number] ####[facility] ([facility])[address] [place] [address] BONE MARROW CELL DIFFERENTIA Jordi 04-13-2024 BM TOTAL CELLS COUNTED Normal [facility] Comment on above: Order Comment: SEE B ONE MARROW EXAM Performed By: #### L [id number] ####[facility] ([facility])[address] [facility] [place] [address] BONE MARROW EXAMon LAB AP ANCILLARY RESULTS Normal [facility] Comment on above: Result Comment: Janelle salcido studies were completed at [facility]:Chromosomes, hematologic, bone marrow:- 46,XX[20]. Performed By: #### L [id number] ####[facility] ([facility])[address] [place] [address] LAB AP ASPIRATE SMEAR Normal [facility] Comment on above: Result Comment: The aspirate smears are adequately paucispiculate and moderately hemodilue. The vzpoffb-iv-ezouwwyuj ratio is mildly increased (due to hemodilutation). Cells of the myeloid lineage are relatively increased in number with normal maturation. There is no increase in blasts or dysplasia identified. Cells of the erythroid lineage are relatively decreased in number with normal maturation. There is no evidence of overt dysplasia identified. Megakaryocytes appear adequate in number with predominantly normal morphology. Plasma cells are not increased in number and show no atypical features.Cell count: Blasts, 0%; progranulocytes, 1%; myelocytes, 21%; metamyelocytes, 8%: bands/segmented neutrophils, 40%; eosinophils, 1%; basophils, 0%; monocytes, 4%; lymphocytes, 13%; plasma cells, 1%; nucleated erythroid precursors, 11% (500 cells counted). Performed By: #### L [id number] ####[facility] ([facility])[address] [place] [address] LAB AP ASR DISCLAIMER Normal [facility] Comment on above: Performed By: #### L [id number] ####[facility] ([facility])[address] [place] [address] LAB AP CASE REPORT Normal [facility] Comment on above: Result Comment: Bone Marrow Case: [id number] Provider: Braulio Mclean MD Collected: 04/13/2024 1051Ordering Location: [facility] Received: 04/13/2024 1209 CarePathologist: JUDIE Mariscalpecimens: A) - Bone Marrow Clot B) - Bone Marrow Biopsy C) - Bone Marrow Aspirate Performed By: #### L [id number] ####[facility] ([facility])[address] [place] [address] LAB AP CBC AND DIFFERENTIAL Normal [facility] Comment on above: Result Comment: Comp lete blood count (CBC) done on 04/13/24 shows the following: WBC, 10.09 x 10^3/???L; hemoglobin, 10.6 g/dL; hematocrit, 34.2%; MCV, 79.5 fL; and platelet count, 247 x10^3/???L. Absolute neutrophil count, 8.50 x 10^3/???L; absolute lymphocyte count, 0.71 x 10^3/???L; absolute monocyte count, 0.80 x 10^3/???L; absolute eosinophil count, 0.00 x 10^3/???L; and absolute basophil count, 0.01 x 10^3/???L.Review of the peripheral blood smear reveals mild microcytic anemia with no significant RBC morphology. There is a mild neutrophilia without left-shifted maturation or toxic changes and a mild lymphopenia. Monocytes are adequate. No circulating immature mononuclear cells are identified. Leukocyte morphology is unremarkable. Platelets are adequate with normal morphology. Performed By: #### L [id number] ####[facility] ([facility])[address] [place] [address] LAB AP CLINICAL INFORMATION Normal [facility] Comment on above: Result Comment: Post -Op DiagnosesNo Dx found. Performed By: #### L [id number] ####[facility] ([facility])[address] [place] [address] LAB AP CLOT SECTION Normal [facility] Comment on above: Result Comment: The aspirate clot section reveals adequate marrow particles. Marrow cellularity approximates 60-70% overall, normocellular for age. Maturing trilineage hematopoiesis is well-represented. There are no clusters or sheets of immature mononuclear cells (blasts) present. Performed By: #### L [id number] ####[facility] ([facility])[address] [place] [address] LAB AP CORE BIOPSY Normal [facility] Comment on above: Result Comment: The core biopsy reveals less than 0.1 cm of evaluable marrow with marked crush and aspiration artifact. Performed By: #### L [id number] ####[facility] ([facility])[address] [facility] [place] [address] LAB AP FLOW CYTOMETRY SUMMARY [facility] Comment on above: Result Comment: Flow cytometry studies were completed at [facility]:Bone marrow, flow cytometric immunophenotyping:- Normal immunophenotyping results. No monoclonal B-cell population or increase in blasts identified. Performed By: #### L [id number] ####[facility] ([facility])[address] [place] [address] LAB AP GROSS DESCRIPTION [facility] Comment on above: Result Comment: A. B one Marrow Clot.Received in formalin is a reddish-brown blood clot measuring 1.7 x 1.0 x 0.3 cm.It is submitted for routine histology in one cassette.B. Bone Marrow Biopsy.Received in formalin is a hard, reddish-abarca, cylindrical fragment of tissue measuring 0.3 x 0.3 x 0.3 cm.The specimen is submitted for decalcification and subsequent microscopy.C. Bone Marrow Aspirate.Received are multiple prepared glass slides for Coe Giemsa staining. One slide is stained for iron. Performed By: #### L [id number] ####[facility] ([facility])[address] [place] [address] LAB AP REPORT FINAL DIAGNOSIS NARRATIVE Normal [facility] Comment on above: Result Comment: A-C. Bone marrow, aspirate smears, aspirate clot section, core biopsy and peripheral blood smear:- Normocellular bone marrow for age with maturing trilineage hematopoiesis.- Adequate storage iron; no ring sideroblasts identified.- No evidence of overt dysplasia or neoplasm.- No evidence of bone marrow involvement by patient's previously diagnosed acute T-cell lymphoblastic leukemia/lymphoma. Performed By: #### L [id number] ####[facility] ([facility])[address] [place] [address] LAB AP SPECIAL STAINS [facility] Comment on above: Result Comment: Iron stains were completed on the aspirate clot section, core biopsy and aspirate smear. Storage iron is adequate; no ring sideroblasts are identified. Performed By: #### L [id number] ####[facility] ([facility])[address] [place] [address] CBC WITH AUTO DIFFERENTIALon 04-13-2024 Basophils (Bld) [#/Vol] 0.01 10*3/uL Normal 0.00-0.20 [facility] Comment on above: Performed By: #### L [id number] ####[facility] ([facility])[address] [place] [address] Basophils/100 WBC (Bld) 0.1 % Normal 0.0-1.0 [facility] Comment on above: Performed By: #### L [id number] ####[facility] ([facility])[address] [place] [address] Eosinophils (Bld) [#/Vol] 0.00 10*3/uL Normal 0.00-0.50 [facility] Comment on above: Performed By: #### L [id number] ####[facility] ([facility])[address] [place] [address] Eosinophils/100 WBC (Bld) 0.0 % Normal 0.0-6.0 [facility] Comment on above: Performed By: #### L [id number] ####[facility] ([facility])[address] [place] [address] Erythrocyte distribution width (RBC) [Ratio] 16.1 % High 11.5-15.0 [facility] Comment on above: Performed By: #### L [id number] ####[facility] ([facility])[address] [place] [address] ERYTHROCYTE MEAN CORPUSCULAR HEMOGLOBIN CONCENTRATION (G/DL) BY AUTOMATED 31.0 g/dL Low 32.0-35.0 [facility] Comment on above: Performed By: #### L [id number] ####[facility] ([facility])[address] [place] [address] Hematocrit (Bld) [Volume fraction] 34.2 % Low 36.0-48.0 [facility] Comment on above: Performed By: #### L [id number] ####[facility] ([facility])[address] [place] [address] Hemoglobin (Bld) [Mass/Vol] 10.6 g/dL Low 12.0-15.0 [facility] Comment on above: Performed By: #### L [id number] ####[facility] ([facility])[address] [place] [address] Immature granulocytes (Bld) [#/Vol] 0.07 10*3/uL Normal 0.00-0.20 [facility] Comment on above: Performed By: #### L [id number] ####[facility] ([facility])[address] [place] [address] Immature granulocytes/100 WBC (Bld) 0.7 % Normal 0.0-1.0 [facility] Comment on above: Performed By: #### L [id number] ####[facility] ([facility])[address] [place] [address] Lymphocytes (Bld) [#/Vol] 0.71 10*3/uL Low 1.20-4.00 [facility] Comment on above: Performed By: #### L [id number] ####[facility] ([facility])[address] [place] [address] Lymphocytes/100 WBC (Bld) 7.0 % Low 20.0-45.0 [facility] Comment on above: Performed By: #### L [id number] ####[facility] ([facility])[address] [place] [address] MCH (RBC) [Entitic mass] 24.7 pg Low 27.0-33.0 [facility] Comment on above: Performed By: #### L [id number] ####[facility] ([facility])[address] [place] [address] MCV (RBC) [Entitic vol] 79.5 fL Low 82.0-98.0 [facility] Comment on above: Performed By: #### L [id number] ####[facility] ([facility])[address] [place] [address] Monocytes (Bld) [#/Vol] 0.80 10*3/uL Normal 0.10-1.00 [facility] Comment on above: Performed By: #### L [id number] ####[facility] ([facility])[address] [place] [address] Monocytes/100 WBC (Bld) 7.9 % Normal 5.0-12.0 [facility] Comment on above: Performed By: #### L [id number] ####[facility] ([facility])[address] [place] [address] Neutrophils (Bld) [#/Vol] 8.50 10*3/uL High 1.60-7.60 [facility] Comment on above: Performed By: #### L [id number] ####[facility] ([facility])[address] [place], [place] [address] Neutrophils/100 WBC (Bld) 84.3 % High 40.0-72.0 [facility] Comment on above: Performed By: #### L [id number] ####[facility] ([facility])[address] [place], [place] [address] NRBC (PER 100 WBCS) BY AUTOMATED COUNT 0.0 % Normal 0 [facility] Comment on above: Performed By: #### L [id number] ####[facility] ([facility])[address] [place] [address] PLATELETS (10*3/UL) IN BLOOD AUTOMATED COUNT 247 10*3/uL Normal 150-400 [facility] Comment on above: Performed By: #### L [id number] ####[facility] ([facility])[address] [place] [address] RBC (Bld) [#/Vol] 4.30 10*6/uL Normal 3.80-5.00 [facility] Comment on above: Performed By: #### L [id number] ####[facility] ([facility])[address] [place] [address] WBC (Bld) [#/Vol] 10.09 10*3/uL Normal 4.00-10.60 [facility] Comment on above: Performed By: #### L [id number] ####[facility] ([facility])[address] [place] [address] LACTATE DEHYDROGENASEon 07-0 LACTATE DEHYDROGENASE (U/L) IN SER/PLAS BY LAC->PYR RXN 682 U/L High 140-271 [facility] Comment on above: Performed By: #### L [id number] ####[facility] ([facility])[address] [place] [address] MAGNESIUMon 04-13-2024 Magnesium [Mass/Vol] 2.1 mg/dL Normal 1.9-2.7 [facility] Comment on above: Performed By: #### L [id number] ####[facility] ([facility])[address] [place] [address] PHOSPHORUSon 04-13-2024 Magnesium [Mass/Vol] 3.6 mg/dL Normal 2.5-5.0 [facility] Comment on above: Performed By: #### L [id number] ####[facility] ([facility])[address] [place] [address] PROTIME-INRon 04-13-2024 INR IN PPP BY COAGULATION ASSAY 1.25 High 0.90-1.10 [facility] Comment on above: Result Comment: ACCC P RECOMMENDED INR FOR WARFARIN THERAPY CONDITION INRPROPHYLAXIS OF VENOUS THROMBOSIS 2-3(HIGH-RISK SURGERY)TREATMENT OF VENOUS THROMBOSIS 2-3TREATMENT OF PULMONARY EMBOLISM 2-3PREVENTION OF SYSTEMIC EMBOLISM: 2-3 ACUTE MYOCARDIAL INFARCTION TISSUE HEART VALVES VALVULAR HEART DISEASE ATRIAL FIBRILLATION RECURRENT SYSTEMIC EMBOLISMMECHANICAL HEART VALVE 2.5-3.5 FROM: ORAL ANTICOAGULANTS. MECHANISM OF ACTION, CLINICAL EFFECTIVENESS, AND OPTIMAL THERAPEUTIC RANGE. CHEST 1995;108:231S-246S. Performed By: #### L [id number] ####[facility] ([facility])[address] [place] [address] PROTHROMBIN TIME (PT) IN PPP BY COAGULATION ASSAY 15.7 Seconds High 12.3-14.8 [facility] Comment on above: Performed By: #### L [id number] ####[facility] ([facility])[address] [place] [address] URIC ACIDon 04-13-2024 Magnesium [Mass/Vol] 2.2 mg/dL Low 2.3-6.6 [facility] Comment on above: Performed By: #### L [id number] ####[facility] ([facility])[address] [facility] [address] 30on 04-12-2024 30 Normal [facility] 30 Normal [facility] ANTI-XA (HEPARIN LEVEL)on HEPARIN UNFRACTIONATED (U/ML) IN PPP BY CHROMOGENIC METHOD 0.39 IU/mL Normal 0.3-0.7 [facility] Comment on above: Result Comment: Oakes roxaban and Apixaban will interfere with the anti Xa assay used to monitor UFH and LMWH. Performed By: #### L [id number] ####[facility] ([facility])[address] [place] [address] HEPARIN UNFRACTIONATED (U/ML) IN PPP BY CHROMOGENIC METHOD 0.29 IU/mL Low 0.3-0.7 [facility] Comment on above: Result Comment: Oakes roxaban and Apixaban will interfere with the anti Xa assay used to monitor UFH and LMWH. Performed By: #### L [id number] ####[facility] ([facility])[address] [place] [address] APTTon 04-12-2024 ACTIVATED PARTIAL THROMBOPLASTIN TIME IN PPP BY COAGULATION ASSAY 57.7 Seconds High 25.0-35.0 [facility] Comment on above: Result Comment: Clin ical significance of the APTT is questionable in the presence of heparin. Performed By: #### L [id number] ####[facility] ([facility])[address] [place] [address] BASIC METABOLIC PANELon Anion gap [Moles/Vol] 9 mmol/L Normal 7-20 [facility] Comment on above: Performed By: #### L [id number] ####[facility] ([facility])[address] [place] [address] Calcium [Mass/Vol] 8.6 mg/dL Normal 8.6-10.3 [facility] Comment on above: Performed By: #### L [id number] ####[facility] ([facility])[address] [place] [address] Chloride [Moles/Vol] 104 mmol/L Normal 98-107 [facility] Comment on above: Performed By: #### L [id number] ####[facility] ([facility])[address] [place] [address] CO2 [Moles/Vol] 29 mmol/L Normal 21-31 [facility] Comment on above: Performed By: #### L [id number] ####[facility] ([facility])[address] [place] [address] Creatinine [Mass/Vol] 0.45 mg/dL Low 0.60-1.20 [facility] Comment on above: Performed By: #### L [id number] ####[facility] ([facility])[address] [place] [address] GLOMERULAR FILTRATION RATE ML/MIN/1.73 SQ M.PREDICTED 125.4 mL/min/1.73m*2 Normal >60.0 [facility] Comment on above: Result Comment: The [facility]???s estimated glomerular filtration rate (eGFR) will no longer include consideration of race in its calculation. The National Kidney Foundation???s eGFR Task Force developed new recommendations for the estimation of the glomerular filtration rate in the [place] They recommend immediate implementation of the new equation refit without the race variable in all laboratories because the calculation does not include race. In addition to not including race in the calculation and reporting, it included diversity in its development, and has acceptable performance characteristics and potential consequences that do not disproportionately affect any one group of individuals. Performed By: #### L [id number] ####[facility] ([facility])[address] [place] [address] Glucose [Mass/Vol] 120 mg/dL High 70-100 [facility] Comment on above: Performed By: #### L [id number] ####[facility] ([facility])[address] [place] [address] Potassium [Moles/Vol] 4.2 mmol/L Normal 3.5-5.1 [facility] Comment on above: Performed By: #### L [id number] ####[facility] ([facility])[address] [place] [address] Sodium [Moles/Vol] 138 mmol/L Normal 136-145 [facility] Comment on above: Performed By: #### L [id number] ####[facility] ([facility])[address] [place] [address] Urea nitrogen [Mass/Vol] 20 mg/dL Normal 7-25 [facility] Comment on above: Performed By: #### L [id number] ####[facility] ([facility])[address] [place] [address] UREA NITROGEN/CREATININE (MASS RATIO) IN SER/PLAS 44.4 Normal [facility] Comment on above: Performed By: #### L [id number] ####[facility] ([facility])[address] [place] [address] BLOOD CULTUREon 04-12-2024 Bacteria identified Cx Nom (Bld) No growth at 5 days Normal [facility] Comment on above: Order Comment: From a different site than #1. Performed By: #### L [id number] ####[facility] ([facility])[address] [place] [address] CBC WITH AUTO DIFFERENTIALon 04-12-2024 Basophils (Bld) [#/Vol] 0.01 10*3/uL Normal 0.00-0.20 [facility] Comment on above: Performed By: #### L [id number] ####[facility] ([facility])[address] [place] [address] Basophils/100 WBC (Bld) 0.1 % Normal 0.0-1.0 [facility] Comment on above: Performed By: #### L [id number] ####[facility] ([facility])[address] [place] [address] Eosinophils (Bld) [#/Vol] 0.00 10*3/uL Normal 0.00-0.50 [facility] Comment on above: Performed By: #### L [id number] ####[facility] ([facility])[address] [place] [address] Eosinophils/100 WBC (Bld) 0.0 % Normal 0.0-6.0 [facility] Comment on above: Performed By: #### L [id number] ####[facility] ([facility])[address] [place] [address] Erythrocyte distribution width (RBC) [Ratio] 16.4 % High 11.5-15.0 [facility] Comment on above: Performed By: #### L [id number] ####[facility] ([facility])[address] [place] [address] ERYTHROCYTE MEAN CORPUSCULAR HEMOGLOBIN CONCENTRATION (G/DL) BY AUTOMATED 30.4 g/dL Low 32.0-35.0 [facility] Comment on above: Performed By: #### L [id number] ####[facility] ([facility])[address] [place] [address] Hematocrit (Bld) [Volume fraction] 33.9 % Low 36.0-48.0 [facility] Comment on above: Result Comment: Resu lts checked Performed By: #### L [id number] ####[facility] ([facility])[address] [place] [address] Hemoglobin (Bld) [Mass/Vol] 10.3 g/dL Low 12.0-15.0 [facility] Comment on above: Performed By: #### L [id number] ####[facility] ([facility])[address] [place] [address] Immature granulocytes (Bld) [#/Vol] 0.08 10*3/uL Normal 0.00-0.20 [facility] Comment on above: Performed By: #### L [id number] ####[facility] ([facility])[address] [place] [address] Immature granulocytes/100 WBC (Bld) 0.8 % Normal 0.0-1.0 [facility] Comment on above: Performed By: #### L [id number] ####[facility] ([facility])[address] [place] [address] Lymphocytes (Bld) [#/Vol] 0.65 10*3/uL Low 1.20-4.00 [facility] Comment on above: Performed By: #### L [id number] ####[facility] ([facility])[address] [place] [address] Lymphocytes/100 WBC (Bld) 6.2 % Low 20.0-45.0 [facility] Comment on above: Performed By: #### L [id number] ####[facility] ([facility])[address] [place] [address] MCH (RBC) [Entitic mass] 24.5 pg Low 27.0-33.0 [facility] Comment on above: Performed By: #### L [id number] ####[facility] (BEAKER)[address] [place] [address] MCV (RBC) [Entitic vol] 80.5 fL Low 82.0-98.0 [facility] Comment on above: Performed By: #### L [id number] ####[facility] ([facility])[address] [place] [address] Monocytes (Bld) [#/Vol] 0.89 10*3/uL Normal 0.10-1.00 [facility] Comment on above: Performed By: #### L [id number] ####[facility] ([facility]AKER)[address] [place] [address] Monocytes/100 WBC (Bld) 8.5 % Normal 5.0-12.0 [facility] Comment on above: Performed By: #### L [id number] ####[facility] (BEAKER)[address] [place], [place] [address] Neutrophils (Bld) [#/Vol] 8.90 10*3/uL High 1.60-7.60 [facility] Comment on above: Performed By: #### L [id number] ####[facility] ([facility]AKER)[address] [place], [place] [address] Neutrophils/100 WBC (Bld) 84.4 % High 40.0-72.0 [facility] Comment on above: Performed By: #### L [id number] ####[facility] (BEAKER)[address] [place] [address] NRBC (PER 100 WBCS) BY AUTOMATED COUNT 0.0 % Normal 0 [facility] Comment on above: Performed By: #### L [id number] ####[facility] ([facility]AKER)[address] [place] [address] PLATELETS (10*3/UL) IN BLOOD AUTOMATED COUNT 214 10*3/uL Normal 150-400 [facility] Comment on above: Performed By: #### L [id number] ####[facility] ([facility]AKER)[address] [place], [place] [address] RBC (Bld) [#/Vol] 4.21 10*6/uL Normal 3.80-5.00 [facility] Comment on above: Performed By: #### L [id number] ####[facility] (BEAKER)[address] [place] [address] WBC (Bld) [#/Vol] 10.53 10*3/uL Normal 4.00-10.60 [facility] Comment on above: Performed By: #### L [id number] ####[facility] ([facility])[address] [place] [address] CONSULTon 04-12-2024 CONSULT Normal [facility] LACTATE DEHYDROGENASEon 07-0 LACTATE DEHYDROGENASE (U/L) IN SER/PLAS BY LAC->PYR RXN 830 U/L High 140-271 [facility] Comment on above: Performed By: #### L [id number] ####[facility] ([facility])[place] [address] MAGNESIUMon 04-12-2024 Magnesium [Mass/Vol] 2.4 mg/dL Normal 1.9-2.7 [facility] Comment on above: Performed By: #### L [id number] ####[facility] ([facility])[place] [address] NURSNOTEon 04-12-2024 NURSNOTE Normal [facility] PHOSPHORUSon 04-12-2024 Magnesium [Mass/Vol] 3.5 mg/dL Normal 2.5-5.0 [facility] Comment on above: Performed By: #### L [id number] ####[facility] ([facility])[place] [address] PROTIME-INRon 04-12-2024 INR IN PPP BY COAGULATION ASSAY 1.26 High 0.90-1.10 [facility] Comment on above: Result Comment: ACCC P RECOMMENDED INR FOR WARFARIN THERAPY CONDITION INRPROPHYLAXIS OF VENOUS THROMBOSIS 2-3(HIGH-RISK SURGERY)TREATMENT OF VENOUS THROMBOSIS 2-3TREATMENT OF PULMONARY EMBOLISM 2-3PREVENTION OF SYSTEMIC EMBOLISM: 2-3 ACUTE MYOCARDIAL INFARCTION TISSUE HEART VALVES VALVULAR HEART DISEASE ATRIAL FIBRILLATION RECURRENT SYSTEMIC EMBOLISMMECHANICAL HEART VALVE 2.5-3.5 FROM: ORAL ANTICOAGULANTS. MECHANISM OF ACTION, CLINICAL EFFECTIVENESS, AND OPTIMAL THERAPEUTIC RANGE. CHEST 1995;108:231S-246S. Performed By: #### L [id number] ####[facility] ([facility])[address] [place] [address] PROTHROMBIN TIME (PT) IN PPP BY COAGULATION ASSAY 15.8 Seconds High 12.3-14.8 [facility] Comment on above: Performed By: #### L [id number] ####[facility] ([facility])[address] [place] [address] TRIGLYCERIDESon 04-12-2024 FASTING? Unknown Normal [facility] Comment on above: Order Comment: Monit or triglycerides while patient is on propofol. Consult Nutrition if greater than 500 mg/dL. Performed By: #### L [id number] ####[facility] ([facility])[address] [place] [address] Magnesium [Mass/Vol] 114 mg/dL Normal 40-149 [facility] Comment on above: Order Comment: Monit or triglycerides while patient is on propofol. Consult Nutrition if greater than 500 mg/dL. Result Comment: TRIG LYCERIDE REFERENCE RANGE:20 YEARS AND OLDER CARDIOVASCULAR RISKLESS THAN 150 mg/dL LOW [id number] TO 199 mg/dL BORDERLINE [id number] mg/dL AND GREATER HIGH RISK Performed By: #### L [id number] ####[facility] ([facility])[address] [place] [address] URIC ACIDon 04-12-2024 Magnesium [Mass/Vol] 1.9 mg/dL Low 2.3-6.6 [facility] Comment on above: Performed By: #### L [id number] ####[facility] ([facility])[address] [place] [address] 30on 04-11-2024 30 Normal [facility] ANTI-XA (HEPARIN LEVEL)on HEPARIN UNFRACTIONATED (U/ML) IN PPP BY CHROMOGENIC METHOD 0.38 IU/mL Normal 0.3-0.7 [facility] Comment on above: Result Comment: Oakes roxaban and Apixaban will interfere with the anti Xa assay used to monitor UFH and LMWH. Performed By: #### L [id number] ####[facility] ([facility])[address] [place] [address] HEPARIN UNFRACTIONATED (U/ML) IN PPP BY CHROMOGENIC METHOD 0.36 IU/mL Normal 0.3-0.7 [facility] Comment on above: Result Comment: Mai roxaban and Apixaban will interfere with the anti Xa assay used to monitor UFH and LMWH. Performed By: #### L [id number] ####[facility] ([facility])[address] [place] [address] HEPARIN UNFRACTIONATED (U/ML) IN PPP BY CHROMOGENIC METHOD 0.25 IU/mL Low 0.3-0.7 [facility] Comment on above: Result Comment: Oakes roxaban and Apixaban will interfere with the anti Xa assay used to monitor UFH and LMWH. Performed By: #### L [id number] ####[facility] ([facility])[address] [place] [address] BASIC METABOLIC PANELon Anion gap [Moles/Vol] 10 mmol/L Normal 7-20 [facility] Comment on above: Performed By: #### L [id number] ####[facility] ([facility])[address] [place] [address] Calcium [Mass/Vol] 8.6 mg/dL Normal 8.6-10.3 [facility] Comment on above: Performed By: #### L [id number] ####[facility] ([facility])[address] [place] [address] Chloride [Moles/Vol] 101 mmol/L Normal 98-107 [facility] Comment on above: Performed By: #### L [id number] ####[facility] ([facility])[address] [place] [address] CO2 [Moles/Vol] 30 mmol/L Normal 21-31 [facility] Comment on above: Performed By: #### L [id number] ####[facility] ([facility])[address] [place] [address] Creatinine [Mass/Vol] 0.47 mg/dL Low 0.60-1.20 [facility] Comment on above: Performed By: #### L [id number] ####[facility] ([facility])[address] [place] [address] GLOMERULAR FILTRATION RATE ML/MIN/1.73 SQ M.PREDICTED 124.1 mL/min/1.73m*2 Normal >60.0 [facility] Comment on above: Result Comment: The [facility]???s estimated glomerular filtration rate (eGFR) will no longer include consideration of race in its calculation. The National Kidney Foundation???s eGFR Task Force developed new recommendations for the estimation of the glomerular filtration rate in the [place] They recommend immediate implementation of the new equation refit without the race variable in all laboratories because the calculation does not include race. In addition to not including race in the calculation and reporting, it included diversity in its development, and has acceptable performance characteristics and potential consequences that do not disproportionately affect any one group of individuals. Performed By: #### L [id number] ####[facility] ([facility])[address] [place] [address] Glucose [Mass/Vol] 89 mg/dL Normal 70-100 [facility] Comment on above: Performed By: #### L [id number] ####[facility] ([facility])[address] [place] [address] Potassium [Moles/Vol] 4.1 mmol/L Normal 3.5-5.1 [facility] Comment on above: Performed By: #### L [id number] ####[facility] ([facility])[address] [place] [address] Sodium [Moles/Vol] 137 mmol/L Normal 136-145 [facility] Comment on above: Performed By: #### L [id number] ####[facility] ([facility])[address] [place] [address] Urea nitrogen [Mass/Vol] 15 mg/dL Normal 7-25 [facility] Comment on above: Performed By: #### L [id number] ####[facility] ([facility])[address] [place] [address] UREA NITROGEN/CREATININE (MASS RATIO) IN SER/PLAS 31.9 Normal [facility] Comment on above: Performed By: #### L [id number] ####[facility] ([facility])[address] [place] [address] BLOOD CULTUREon 04-11-2024 Bacteria identified Cx Nom (Bld) No growth at 5 days Normal [facility] Comment on above: Order Comment: From a different site than #1. Performed By: #### L [id number] ####[facility] ([facility])[address] [place] [address] Bacteria identified Cx Nom (Bld) No growth at 5 days Normal [facility] Comment on above: Performed By: #### L [id number] ####[facility] ([facility])[address] [place] [address] CBC WITH AUTO DIFFERENTIALon 04-11-2024 Basophils (Bld) [#/Vol] 0.04 10*3/uL Normal 0.00-0.20 [facility] Comment on above: Performed By: #### L [id number] ####[facility] ([facility])[address] [place] [address] Basophils/100 WBC (Bld) 0.3 % Normal 0.0-1.0 [facility] Comment on above: Performed By: #### L [id number] ####[facility] ([facility])[address] [place] [address] Eosinophils (Bld) [#/Vol] 0.06 10*3/uL Normal 0.00-0.50 [facility] Comment on above: Performed By: #### L [id number] ####[facility] (BEAKER)[address] [place] [address] Eosinophils/100 WBC (Bld) 0.4 % Normal 0.0-6.0 [facility] Comment on above: Performed By: #### L [id number] ####[facility] ([facility])[address] [place] [address] Erythrocyte distribution width (RBC) [Ratio] 17.2 % High 11.5-15.0 [facility] Comment on above: Performed By: #### L [id number] ####[facility] ([facility])[address] [place] [address] ERYTHROCYTE MEAN CORPUSCULAR HEMOGLOBIN CONCENTRATION (G/DL) BY AUTOMATED 29.5 g/dL Low 32.0-35.0 [facility] Comment on above: Performed By: #### L [id number] ####[facility] ([facility])[address] [place] [address] Hematocrit (Bld) [Volume fraction] 41.3 % Normal 36.0-48.0 [facility] Comment on above: Performed By: #### L [id number] ####[facility] (BEAKER)[address] [place] [address] Hemoglobin (Bld) [Mass/Vol] 12.2 g/dL Normal 12.0-15.0 [facility] Comment on above: Performed By: #### L [id number] ####[facility] (BEAKER)[address] [place] [address] Immature granulocytes (Bld) [#/Vol] 0.11 10*3/uL Normal 0.00-0.20 [facility] Comment on above: Performed By: #### L [id number] ####[facility] (BEAKER)[address] [place] [address] Immature granulocytes/100 WBC (Bld) 0.8 % Normal 0.0-1.0 [facility] Comment on above: Performed By: #### L [id number] ####[facility] ([facility]ER)[address] [place] [address] Lymphocytes (Bld) [#/Vol] 0.99 10*3/uL Low 1.20-4.00 [facility] Comment on above: Performed By: #### L [id number] ####[facility] ([facility])[address] [place] [address] Lymphocytes/100 WBC (Bld) 6.9 % Low 20.0-45.0 [facility] Comment on above: Performed By: #### L [id number] ####[facility] ([facility])[address] [place] [address] MCH (RBC) [Entitic mass] 24.8 pg Low 27.0-33.0 [facility] Comment on above: Performed By: #### L [id number] ####[facility] ([facility])[address] [place] [address] MCV (RBC) [Entitic vol] 83.9 fL Normal 82.0-98.0 [facility] Comment on above: Performed By: #### L [id number] ####[facility] ([facility])[address] [place] [address] Monocytes (Bld) [#/Vol] 1.37 10*3/uL High 0.10-1.00 [facility] Comment on above: Performed By: #### L [id number] ####[facility] ([facility])[address] [place] [address] Monocytes/100 WBC (Bld) 9.6 % Normal 5.0-12.0 [facility] Comment on above: Performed By: #### L [id number] ####[facility] (BEAKER)[address] [place] [address] Neutrophils (Bld) [#/Vol] 11.77 10*3/uL High 1.60-7.60 [facility] Comment on above: Performed By: #### L [id number] ####[facility] ([facility])[address] [place] [address] Neutrophils/100 WBC (Bld) 82.0 % High 40.0-72.0 [facility] Comment on above: Performed By: #### L [id number] ####[facility] ([facility])[address] [place] [address] NRBC (PER 100 WBCS) BY AUTOMATED COUNT 0.0 % Normal 0 [facility] Comment on above: Performed By: #### L [id number] ####[facility] ([facility])[address] [place] [address] PLATELETS (10*3/UL) IN BLOOD AUTOMATED COUNT 218 10*3/uL Normal 150-400 [facility] Comment on above: Performed By: #### L [id number] ####[facility] ([facility])[address] [place] [address] RBC (Bld) [#/Vol] 4.92 10*6/uL Normal 3.80-5.00 [facility] Comment on above: Performed By: #### L [id number] ####[facility] ([facility])[address] [place] [address] WBC (Bld) [#/Vol] 14.34 10*3/uL High 4.00-10.60 [facility] Comment on above: Performed By: #### L [id number] ####[facility] ([facility])[address] [place] [address] LACTATE DEHYDROGENASEon LACTATE DEHYDROGENASE (U/L) IN SER/PLAS BY LAC->PYR RXN 964 U/L High 140-271 [facility] Comment on above: Performed By: #### L [id number] ####[facility] ([facility])[address] [place] [address] MAGNESIUMon 04-11-2024 Magnesium [Mass/Vol] 2.3 mg/dL Normal 1.9-2.7 [facility] Comment on above: Performed By: #### L [id number] ####[facility] ([facility])[address] [place] [address] NURSNOTEon 04-11-2024 NURSNOTE PICC team got consen t from to place PICC potentially on Friday, waiting for blood culture 48 hour results, fever to decrease, and pt needs bone marrow biopsy prior to PICC line per Oncology, PICC team will follow up tomorrow Normal [facility] PHOSPHORUSon 04-11-2024 Magnesium [Mass/Vol] 3.1 mg/dL Normal 2.5-5.0 [facility] Comment on above: Performed By: #### L [id number] ####[facility] ([facility])[address] [place] [address] Magnesium [Mass/Vol] 3.9 mg/dL Normal 2.5-5.0 [facility] Comment on above: Performed By: #### L [id number] ####[facility] ([facility])[address] [place] [address] SPUTUM CULTUREon 04-11-2024 Clindamycin [Susc] <=0.5 Susceptible [facility] Comment on above: Order Comment: No Co lonies Consistent with Upper Respiratory Sindy Performed By: #### L [id number] ####[facility] ([facility])[address] [place] [address] Oxacillin [Susc] <=0.25 Susceptible [facility] Comment on above: Order Comment: No Co lonies Consistent with Upper Respiratory Sindy Performed By: #### L [id number] ####[facility] ([facility])[address] [place] [address] Tetracycline [Susc] <=0.5 Susceptible [facility] Comment on above: Order Comment: No Co lonies Consistent with Upper Respiratory Sindy Performed By: #### L [id number] ####[facility] ([facility])[address] [place] [address] Trimethoprim+Sulfame thoxazole [Susc] <=0.5/9.5 Susceptible [facility] Comment on above: Order Comment: No Co lonies Consistent with Upper Respiratory Sindy Performed By: #### L [id number] ####[facility] ([facility])[address] [place] [address] Vancomycin [Susc] 1 ug/ml Susceptible [facility] Comment on above: Order Comment: No Co lonies Consistent with Upper Respiratory Sindy Performed By: #### L [id number] ####[facility] ([facility])[address] [place] [address] URIC ACIDon 04-11-2024 Magnesium [Mass/Vol] 1.7 mg/dL Low 2.3-6.6 [facility] Comment on above: Performed By: #### L [id number] ####[facility] ([facility])[address] [place] [address] URINALYSISon 04-11-2024 BILIRUBIN, TOTAL PRESENCE IN URINE Negative Normal Negative [facility] Comment on above: Performed By: #### L [id number] ####[facility] ([facility])[address] [place] [address] Clarity (U) Slightly Cloudy Abnormal Clear [facility] Comment on above: Performed By: #### L [id number] ####[facility] ([facility])[address] [place] [address] Color (U) Diana Abnormal Yellow [facility] Comment on above: Performed By: #### L [id number] ####[facility] ([facility])[address] [place] [address] Glucose (U) [Mass/Vol] Negative Normal Negative [facility] Comment on above: Performed By: #### L [id number] ####[facility] ([facility])[address] [place] [address] HEMOGLOBIN PRESENCE IN URINE Moderate Abnormal Negative [facility] Comment on above: Performed By: #### L [id number] ####[facility] ([facility])[address] [place] [address] Ketones Ql (U) Negative Normal Negative [facility] Comment on above: Performed By: #### L [id number] ####[facility] ([facility])[address] [place] [address] LEUKOCYTE ESTERASE PRESENCE IN URINE BY TEST STRIP Negative Normal Negative [facility] Comment on above: Performed By: #### L [id number] ####[facility] ([facility])[address] [place] [address] NITRITE PRESENCE IN URINE Negative Normal Negative [facility] Comment on above: Performed By: #### L [id number] ####[facility] ([facility])[address] [place] [address] pH (U) 7.0 [pH] Normal 5.0-8.0 [facility] Comment on above: Performed By: #### L [id number] ####[facility] ([facility])[address] [place] [address] Protein (U) [Mass/Vol] 100 mg/dL Abnormal Negative [facility] Comment on above: Performed By: #### L [id number] ####[facility] ([facility])[address] [place] [address] Specific gravity (U) [Rel density] 1.027 High 1.015-1.020 [facility] Comment on above: Performed By: #### L [id number] ####[facility] ([facility])[address] [place] [address] UROBILINOGEN (EU/DL) IN URINE 4.0 EU/dL Abnormal Negative [facility] Comment on above: Performed By: #### L [id number] ####[facility] ([facility])[address] [place] [address] URINALYSIS MICROSCOPICon CASTS IN URINE Normal [facility] Comment on above: Performed By: #### L [id number] ####[facility] ([facility])[address] [place] [address] CRYSTALS IN URINE Normal [facility] Comment on above: Performed By: #### L [id number] ####[facility] ([facility])[address] [place] [address] RBC (#/HPF) IN URINE SEDIMENT >100 Abnormal None Seen [facility] Comment on above: Performed By: #### L [id number] ####[facility] ([facility])[address] [place] [address] SQUAMOUS EPITHELIAL CELLS (#/HPF) IN URINE SEDIMENT Many Abnormal None Seen, Occasional [facility] Comment on above: Performed By: #### L [id number] ####[facility] ([facility])[address] [place] [address] WBC (LEUKOCYTE) (#/HPF) IN URINE SEDIMENT None Seen Normal None Seen [facility] Comment on above: Performed By: #### L [id number] ####[facility] ([facility])[address] [place] [address] 30on 04-10-2024 30 Normal [facility] ANTI-XA (HEPARIN LEVEL)on HEPARIN UNFRACTIONATED (U/ML) IN PPP BY CHROMOGENIC METHOD 0.32 IU/mL Normal 0.3-0.7 [facility] Comment on above: Order Comment: Check anti-Xa level every 6 hours while on heparin infusion, or per protocol. Result Comment: Oakes roxaban and Apixaban will interfere with the anti Xa assay used to monitor UFH and LMWH. Performed By: #### L [id number] ####[facility] ([facility])[address] [place] [address] BASIC METABOLIC PANELon Anion gap [Moles/Vol] 11 mmol/L Normal 7-20 [facility] Comment on above: Performed By: #### L [id number] ####[facility] ([facility])[address] [place] [address] Calcium [Mass/Vol] 8.5 mg/dL Low 8.6-10.3 [facility] Comment on above: Performed By: #### L [id number] ####[facility] ([facility])[address] [place] [address] Chloride [Moles/Vol] 104 mmol/L Normal 98-107 [facility] Comment on above: Performed By: #### L [id number] ####[facility] ([facility])[address] [place] [address] CO2 [Moles/Vol] 25 mmol/L Normal 21-31 [facility] Comment on above: Performed By: #### L [id number] ####[facility] ([facility])[address] [place] [address] Creatinine [Mass/Vol] 0.42 mg/dL Low 0.60-1.20 [facility] Comment on above: Performed By: #### L [id number] ####[facility] ([facility])[address] [place] [address] GLOMERULAR FILTRATION RATE ML/MIN/1.73 SQ M.PREDICTED 127.5 mL/min/1.73m*2 Normal >60.0 [facility] Comment on above: Result Comment: The [facility]???s estimated glomerular filtration rate (eGFR) will no longer include consideration of race in its calculation. The National Kidney Foundation???s eGFR Task Force developed new recommendations for the estimation of the glomerular filtration rate in the [place] They recommend immediate implementation of the new equation refit without the race variable in all laboratories because the calculation does not include race. In addition to not including race in the calculation and reporting, it included diversity in its development, and has acceptable performance characteristics and potential consequences that do not disproportionately affect any one group of individuals. Performed By: #### L [id number] ####[facility] ([facility])[address] [place] [address] Glucose [Mass/Vol] 121 mg/dL High 70-100 [facility] Comment on above: Performed By: #### L [id number] ####[facility] ([facility])[address] [place] [address] Potassium [Moles/Vol] 4.4 mmol/L Normal 3.5-5.1 [facility] Comment on above: Performed By: #### L [id number] ####[facility] ([facility])[address] [place] [address] Sodium [Moles/Vol] 136 mmol/L Normal 136-145 [facility] Comment on above: Performed By: #### L [id number] ####[facility] ([facility])[address] [place] [address] Urea nitrogen [Mass/Vol] 15 mg/dL Normal 7-25 [facility] Comment on above: Performed By: #### L [id number] ####[facility] ([facility])[address] [place] [address] UREA NITROGEN/CREATININE (MASS RATIO) IN SER/PLAS 35.7 Normal [facility] Comment on above: Performed By: #### L [id number] ####[facility] ([facility])[address] [place] [address] BLOOD CULTUREon 04-10-2024 Bacteria identified Cx Nom (Bld) STREPTOCOCCUS MITIS GROUP Abnormal [facility] Comment on above: Order Comment: From a different site than #1. Result Comment: Stre ptococcus mitis group Performed By: #### L [id number] ####[facility] ([facility])[address] [place] [address] GRAM STAIN RESULT Positive Abnormal [facility] Comment on above: Order Comment: From a different site than #1. Performed By: #### L [id number] ####[facility] ([facility])[address] [place] [address] CBC WITH AUTO DIFFERENTIALon 04-10-2024 Basophils (Bld) [#/Vol] 0.02 10*3/uL Normal 0.00-0.20 [facility] Comment on above: Performed By: #### L [id number] ####[facility] ([facility])[address] [place] [address] Basophils/100 WBC (Bld) 0.1 % Normal 0.0-1.0 [facility] Comment on above: Performed By: #### L [id number] ####[facility] ([facility])[address] [place] [address] Eosinophils (Bld) [#/Vol] 0.00 10*3/uL Normal 0.00-0.50 [facility] Comment on above: Performed By: #### L [id number] ####[facility] ([facility])[address] [place] [address] Eosinophils/100 WBC (Bld) 0.0 % Normal 0.0-6.0 [facility] Comment on above: Performed By: #### L [id number] ####[facility] ([facility])[address] [place] [address] Erythrocyte distribution width (RBC) [Ratio] 16.8 % High 11.5-15.0 [facility] Comment on above: Performed By: #### L [id number] ####[facility] ([facility])[address] [place] [address] ERYTHROCYTE MEAN CORPUSCULAR HEMOGLOBIN CONCENTRATION (G/DL) BY AUTOMATED 31.0 g/dL Low 32.0-35.0 [facility] Comment on above: Performed By: #### L [id number] ####[facility] ([facility])[address] [place] [address] Hematocrit (Bld) [Volume fraction] 34.5 % Low 36.0-48.0 [facility] Comment on above: Performed By: #### L [id number] ####[facility] ([facility])[address] [place] [address] Hemoglobin (Bld) [Mass/Vol] 10.7 g/dL Low 12.0-15.0 [facility] Comment on above: Performed By: #### L [id number] ####[facility] ([facility])[address] [place] [address] Immature granulocytes (Bld) [#/Vol] 0.15 10*3/uL Normal 0.00-0.20 [facility] Comment on above: Performed By: #### L [id number] ####[facility] ([facility])[address] [place] [address] Immature granulocytes/100 WBC (Bld) 1.0 % Normal 0.0-1.0 [facility] Comment on above: Performed By: #### L [id number] ####[facility] ([facility])[address] [place] [address] Lymphocytes (Bld) [#/Vol] 0.76 10*3/uL Low 1.20-4.00 [facility] Comment on above: Performed By: #### L [id number] ####[facility] ([facility])[address] [place] [address] Lymphocytes/100 WBC (Bld) 5.3 % Low 20.0-45.0 [facility] Comment on above: Performed By: #### L [id number] ####[facility] ([facility])[address] [place] [address] MCH (RBC) [Entitic mass] 24.8 pg Low 27.0-33.0 [facility] Comment on above: Performed By: #### L [id number] ####[facility] ([facility])[address] [place] [address] MCV (RBC) [Entitic vol] 80.0 fL Low 82.0-98.0 [facility] Comment on above: Performed By: #### L [id number] ####[facility] ([facility])[address] [place] [address] Monocytes (Bld) [#/Vol] 1.18 10*3/uL High 0.10-1.00 [facility] Comment on above: Performed By: #### L [id number] ####[facility] ([facility])[address] [place] [address] Monocytes/100 WBC (Bld) 8.2 % Normal 5.0-12.0 [facility] Comment on above: Performed By: #### L [id number] ####[facility] ([facility])[address] [place] [address] Neutrophils (Bld) [#/Vol] 12.29 10*3/uL High 1.60-7.60 [facility] Comment on above: Performed By: #### L [id number] ####[facility] ([facility])[address] [place] [address] Neutrophils/100 WBC (Bld) 85.4 % High 40.0-72.0 [facility] Comment on above: Performed By: #### L [id number] ####[facility] ([facility])[address] [place] [address] NRBC (PER 100 WBCS) BY AUTOMATED COUNT 0.0 % Normal 0 [facility] Comment on above: Performed By: #### L [id number] ####[facility] ([facility])[address] [place] [address] PLATELETS (10*3/UL) IN BLOOD AUTOMATED COUNT 307 10*3/uL Normal 150-400 [facility] Comment on above: Performed By: #### L [id number] ####[facility] ([facility])[address] [place] [address] RBC (Bld) [#/Vol] 4.31 10*6/uL Normal 3.80-5.00 [facility] Comment on above: Performed By: #### L [id number] ####[facility] ([facility])[address] [place] [address] WBC (Bld) [#/Vol] 14.40 10*3/uL High 4.00-10.60 [facility] Comment on above: Performed By: #### L [id number] ####[facility] ([facility])[address] [place] [address] GLUCOSE 6 PHOSPHATE DEHYDROG ENASEon 04-10-2024 [id number] DEHYDROGENASE 21.0 U/g Hb High 9.9-16.6 [facility] Comment on above: Result Comment: Elev ated dyrbupo-8-sahokvifh dehydrogenase activity may occur whenreticulocytes or white blood cells are present in highconcentrations.Performed By: [facility] [place] [id number] Director: Ramses Cox MD, PhDCLIA Number: [id number] Performed By: #### L [id number] ####[facility] ([facility])[address] [place] [address] HIV COMBO ANTIGEN, ANTIBODY PANEL WITH REFLEX CONFIRMATIONon 04-10-2024 HIV 1/2 COMBO AG/AB Negative Normal Negative [facility] Comment on above: Result Comment: The specimen was non-reactive for HIV-1 and HIV-2 antibodies, andp24 antigen. Based on this non-reactive screen result, furtherreflexive testing was not indicated and was, therefore, notperformedINTERPRETIVE INFORMATION: HIV-1,2 Combo Ag/Ab EIA, w/ReflexThis assay should not be used for blood donor screening,associated re-entry protocols, or for screening Human Cells,Tissues, and Cellular and Tissue-Based Products (HCT/P).Performed By: [facility] [place], [place] [id number] Director: Ramses Cox MD, PhDCLIA Number: [id number] Performed By: #### L [id number] ####[facility] ([facility])[address] [place] [address] MAGNESIUMon 04-10-2024 Magnesium [Mass/Vol] 2.3 mg/dL Normal 1.9-2.7 [facility] Comment on above: Performed By: #### L [id number] ####[facility] ([facility])[address] [place] [address] NURSNOTEon 04-10-2024 KEV RN and MD Small aware that once a chemo plan is in place the PICC team needs to be informed and then PICC team can place PICC line [facility] PHOSPHORUSon 04-10-2024 Magnesium [Mass/Vol] 3.3 mg/dL Normal 2.5-5.0 [facility] Comment on above: Performed By: #### L [id number] ####[facility] ([facility])[address] [place] [address] 30on 04-09-2024 30 Normal [facility] 30 [facility] ANTI-XA (HEPARIN LEVEL)on HEPARIN UNFRACTIONATED (U/ML) IN PPP BY CHROMOGENIC METHOD 0.41 IU/mL Normal 0.3-0.7 [facility] Comment on above: Order Comment: Check anti-Xa level every 6 hours while on heparin infusion, or per protocol. Result Comment: Mai roxaban and Apixaban will interfere with the anti Xa assay used to monitor UFH and LMWH. Performed By: #### L [id number] ####[facility] ([facility])[address] [place] [address] HEPARIN UNFRACTIONATED (U/ML) IN PPP BY CHROMOGENIC METHOD 0.51 IU/mL Normal 0.3-0.7 [facility] Comment on above: Order Comment: Check anti-Xa level every 6 hours while on heparin infusion, or per protocol. Result Comment: Mai roxaban and Apixaban will interfere with the anti Xa assay used to monitor UFH and LMWH. Performed By: #### L [id number] ####[facility] ([facility] [place] [address] HEPARIN UNFRACTIONATED (U/ML) IN PPP BY CHROMOGENIC METHOD >1.00 Critically high 0.3-0.7 [facility] Comment on above: Order Comment: Check anti-Xa level every 6 hours while on heparin infusion, or per protocol. Result Comment: Oakes roxaban and Apixaban will interfere with the anti Xa assay used to monitor UFH and LMWH. Performed By: #### L [id number] ####[facility] ([facility])[address] [place] [address] APTTon 04-09-2024 ACTIVATED PARTIAL THROMBOPLASTIN TIME IN PPP BY COAGULATION ASSAY 70.6 Seconds High 25.0-35.0 [facility] Comment on above: Result Comment: Clin ical significance of the APTT is questionable in the presence of heparin. Performed By: #### L [id number] ####[facility] ([facility])[address] [place] [address] BASIC METABOLIC PANELon 07-0 Anion gap [Moles/Vol] 13 mmol/L Normal 7-20 [facility] Comment on above: Performed By: #### L [id number] ####[facility] ([facility])[address] [place] [address] Calcium [Mass/Vol] 8.5 mg/dL Low 8.6-10.3 [facility] Comment on above: Performed By: #### L [id number] ####[facility] ([facility])[address] [place] [address] Chloride [Moles/Vol] 101 mmol/L Normal 98-107 [facility] Comment on above: Performed By: #### L [id number] ####[facility] ([facility])[address] [place] [address] CO2 [Moles/Vol] 25 mmol/L Normal 21-31 [facility] Comment on above: Performed By: #### L [id number] ####[facility] ([facility])[address] [place] [address] Creatinine [Mass/Vol] 0.43 mg/dL Low 0.60-1.20 [facility] Comment on above: Performed By: #### L [id number] ####[facility] ([facility])[address] [place] [address] GLOMERULAR FILTRATION RATE ML/MIN/1.73 SQ M.PREDICTED 126.8 mL/min/1.73m*2 Normal >60.0 [facility] Comment on above: Result Comment: The [facility]???s estimated glomerular filtration rate (eGFR) will no longer include consideration of race in its calculation. The National Kid[employer] Foundation???s eGFR Task Force developed new recommendations for the estimation of the glomerular filtration rate in the [place] They recommend immediate implementation of the new equation refit without the race variable in all laboratories because the calculation does not include race. In addition to not including race in the calculation and reporting, it included diversity in its development, and has acceptable performance characteristics and potential consequences that do not disproportionately affect any one group of individuals. Performed By: #### L [id number] ####[facility] ([facility])[address] [place] [address] Glucose [Mass/Vol] 135 mg/dL High 70-100 [facility] Comment on above: Performed By: #### L [id number] ####[facility] ([facility])[address] [place] [address] Potassium [Moles/Vol] 4.7 mmol/L Normal 3.5-5.1 [facility] Comment on above: Performed By: #### L [id number] ####[facility] ([facility])[address] [place] [address] Sodium [Moles/Vol] 134 mmol/L Low 136-145 [facility] Comment on above: Performed By: #### L [id number] ####[facility] ([facility])[address] [place] [address] Urea nitrogen [Mass/Vol] 11 mg/dL Normal 7-25 [facility] Comment on above: Performed By: #### L [id number] ####[facility] ([facility])[address] [place] [address] UREA NITROGEN/CREATININE (MASS RATIO) IN SER/PLAS 25.6 Normal [facility] Comment on above: Performed By: #### L [id number] ####[facility] ([facility])[address] [place] [address] CBC WITH AUTO DIFFERENTIALon 04-09-2024 Erythrocyte distribution width (RBC) [Ratio] 16.3 % High 11.5-15.0 [facility] Comment on above: Performed By: #### L [id number] ####[facility] ([facility])[address] [place] [address] Result Comment: Porsha ected result: Previously reported as 16.4 % (reference range: 11.5-15.0 %) on 04/09/2024 at 0659 EDT. Performed By: #### L [id number] ####[facility] ([facility])[address] [place] [address] ERYTHROCYTE MEAN CORPUSCULAR HEMOGLOBIN CONCENTRATION (G/DL) BY AUTOMATED 31.6 g/dL Low 32.0-35.0 [facility] Comment on above: Performed By: #### L [id number] ####[facility] ([facility])[address] [place] [address] Result Comment: Porsha ected result: Previously reported as 31.0 g/dL (reference range: 32.0-35.0 g/dL) on 04/09/2024 at 0659 EDT. Performed By: #### L [id number] ####[facility] ([facility])[address] [place] [address] Hematocrit (Bld) [Volume fraction] 34.5 % Low 36.0-48.0 [facility] Comment on above: Performed By: #### L [id number] ####[facility] ([facility])[address] [facility] [address] Result Comment: Porsha ected result: Previously reported as 35.2 % (reference range: 36.0-48.0 %) on 04/09/2024 at 0659 EDT. Performed By: #### L [id number] ####[facility] ([facility])[address] [place] [address] Hemoglobin (Bld) [Mass/Vol] 10.9 g/dL Low 12.0-15.0 [facility] Comment on above: Performed By: #### L [id number] ####[facility] ([facility])[address] [facility] [address] Performed By: #### L [id number] ####[facility] ([facility])[address] [place] [address] MCH (RBC) [Entitic mass] 25.1 pg Low 27.0-33.0 [facility] Comment on above: Performed By: #### L [id number] ####[facility] ([facility])[address] [facility] [place] [address] Result Comment: Porsha ected result: Previously reported as 24.4 pg (reference range: 27.0-33.0 pg) on 04/09/2024 at 0659 EDT. Performed By: #### L [id number] ####[facility] ([facility])[address] [place] [address] MCV (RBC) [Entitic vol] 79.3 fL Low 82.0-98.0 [facility] Comment on above: Performed By: #### L [id number] ####[facility] ([facility])[address] [place] [address] Result Comment: Porsha ected result: Previously reported as 78.7 fL (reference range: 82.0-98.0 fL) on 04/09/2024 at 0659 EDT. Performed By: #### L [id number] ####[facility] ([facility])[address] [place] [address] NRBC (PER 100 WBCS) BY AUTOMATED COUNT 0.0 % Normal 0 [facility] Comment on above: Performed By: #### L [id number] ####[facility] ([facility])[address] [place] [address] PLATELETS (10*3/UL) IN BLOOD AUTOMATED COUNT 334 10*3/uL Normal 150-400 [facility] Comment on above: Performed By: #### L [id number] ####[facility] ([facility])[address] [place] [address] Result Comment: Porsha ected result: Previously reported as 329 10*3/uL (reference range: 150-400 10*3/uL) on 04/09/2024 at 0659 EDT. Performed By: #### L [id number] ####[facility] ([facility])[address] [place] [address] RBC (Bld) [#/Vol] 4.35 10*6/uL Normal 3.80-5.00 [facility] Comment on above: Performed By: #### L [id number] ####[facility] ([facility])[address] [place] [address] Result Comment: Porsha ected result: Previously reported as 4.47 10*6/uL (reference range: 3.80-5.00 10*6/uL) on 04/09/2024 at 0659 EDT. Performed By: #### L [id number] ####[facility] ([facility])[address] [place] [address] WBC (Bld) [#/Vol] 17.31 10*3/uL High 4.00-10.60 [facility] Comment on above: Performed By: #### L [id number] ####[facility] ([facility])[address] [place] [address] Result Comment: Porsha ected result: Previously reported as 16.79 10*3/uL (reference range: 4.00-10.60 10*3/uL) on 04/09/2024 at 0659 EDT. Performed By: #### L [id number] ####[facility] ([facility])[address] [place] [address] CONSULTon 04-09-2024 CONSULT Normal [facility] CT HEAD W AND WO IV CONTRAST on 04-09-2024 CT HEAD W AND WO IV CONTRAST Invalid Interpretation Code [facility] FERRITINon 04-09-2024 FERRITIN (NG/ML) IN SER/PLAS 497.0 ng/mL High 11.0-307.0 [facility] Comment on above: Performed By: #### L [id number] ####[facility] ([facility])[place] [address] FIBRINOGENon 04-09-2024 Magnesium [Mass/Vol] 730 mg/dL High 150-425 [facility] Comment on above: Performed By: #### L [id number] ####[facility] ([facility])[place] [address] FOLATEon 04-09-2024 FOLATE (NG/ML) IN SER/PLAS 5.74 ng/mL Low 6.6-1000 [facility] Comment on above: Performed By: #### L [id number] ####[facility] ([facility])[address] [place] [address] HEPATITIS B CORE ANTIBODY, T OTALon 04-09-2024 HEPATITIS B VIRUS CORE AB (PRESENCE) IN SER/PLAS BY IMM Non-Reactive Normal Nonreactive [facility] Comment on above: Performed By: #### L [id number] ####[facility] ([facility])[address] [place] [address] HEPATITIS B SURFACE ANTIGENo n 04-09-2024 HEPATITIS B VIRUS SURFACE AG PRESENCE IN SERUM Non-Reactive Normal Nonreactive [facility] Comment on above: Performed By: #### L [id number] ####[facility] ([facility])[address] [place] [address] HEPATITIS C ANTIBODYon 04-09 HEPATITIS C VIRUS AB PRESENCE IN SERUM Non-Reactive Normal Nonreactive [facility] Comment on above: Performed By: #### L [id number] ####[facility] ([facility])[address] [place] [address] IRON AND TIBCon 04-09-2024 IRON (UG/DL) IN SER/PLAS 10 ug/dL Low 50-212 [facility] Comment on above: Performed By: #### L [id number] ####[facility] ([facility])[address] [place] [address] IRON BINDING CAPACITY (UG/DL) IN SER/PLAS 206 ug/dL Low 250-450 [facility] Comment on above: Performed By: #### L [id number] ####[facility] ([facility])[address] [place] [address] IRON BINDING CAPACITY.UNSATURATED (UG/DL) IN SER/PLAS 196.0 ug/dL Normal 155.0-355.0 [facility] Comment on above: Performed By: #### L [id number] ####[facility] ([facility])[address] [place] [address] IRON SATURATION (%) IN SER/PLAS 5 % Low 20-50 [facility] Comment on above: Performed By: #### L [id number] ####[facility] ([facility])[address] [place] [address] MAGNESIUMon 04-09-2024 Magnesium [Mass/Vol] 2.4 mg/dL Normal 1.9-2.7 [facility] Comment on above: Performed By: #### L [id number] ####[facility] ([facility])[address] [place] [address] MANUAL DIFFERENTIALon 2023 ANISOCYTOSIS PRESENCE IN BLOOD BY LIGHT MICROSCOPY Slight Normal [facility] Comment on above: Performed By: #### L [id number] ####[facility] ([facility])[address] [place] [address] BASOPHILS (10*3/UL) IN BLOOD BY CALCULATION 0.03 10*3/uL Normal 0.00-0.20 [facility] Comment on above: Performed By: #### L [id number] ####[facility] ([facility])[address] [place] [address] BASOPHILS/100 LEUKOCYTES IN BLOOD BY AUTOMATED COUNT 0.2 % Normal 0.0-1.0 [facility] Comment on above: Performed By: #### L [id number] ####[facility] ([facility])[address] [place] [address] JOSESITO CELLS PRESENCE IN BLOOD BY LIGHT MICROSCOPY Moderate Normal [facility] Comment on above: Performed By: #### L [id number] ####[facility] ([facility])[address] [place] [address] EOSINOPHILS (10*3/UL) IN BLOOD BY CALCULATION 0.00 10*3/uL Normal 0.00-0.50 [facility] Comment on above: Performed By: #### L [id number] ####[facility] ([facility])[address] [place] [address] EOSINOPHILS/100 LEUKOCYTES IN BLOOD BY AUTOMATED COUNT 0.0 % Normal 0.0-6.0 [facility] Comment on above: Performed By: #### L [id number] ####[facility] ([facility])[address] [place] [address] IMMATURE GRANULOCYTES (10*3/UL) IN BLOOD BY CALCULATION 0.10 10*3/uL Normal 0.00-0.20 [facility] Comment on above: Performed By: #### L [id number] ####[facility] ([facility])[address] [place] [address] IMMATURE GRANULOCYTES/100 LEUKOCYTES IN BLOOD BY AUTOMATED COUNT 0.6 % Normal 0.0-1.0 [facility] Comment on above: Performed By: #### L [id number] ####[facility] ([facility])[address] [place] [address] LYMPHOCYTES (10*3/UL) IN BLOOD BY CALCULATION 0.95 10*3/uL Low 1.20-4.00 [facility] Comment on above: Performed By: #### L [id number] ####[facility] ([facility])[address] [place], [place] [address] LYMPHOCYTES/100 LEUKOCYTES IN BLOOD BY AUTOMATED COUNT 5.5 % Low 20.0-45.0 [facility] Comment on above: Performed By: #### L [id number] ####[facility] ([facility])[address] [place] [address] MONOCYTES (10*3/UL) IN BLOOD BY CALCUATION 1.66 10*3/uL High 0.10-1.00 [facility] Comment on above: Performed By: #### L [id number] ####[facility] ([facility])[address] [place] [address] MONOCYTES/100 LEUKOCYTES IN BLOOD BY AUTOMATED COUNT 9.6 % Normal 5.0-12.0 [facility] Comment on above: Performed By: #### L [id number] ####[facility] ([facility])[address] [place] [address] NEUTROPHILS (10*3/UL) IN BLOOD BY CALCULATION 14.6 10*3/uL High 1.6-7.6 [facility] Comment on above: Performed By: #### L [id number] ####[facility] ([facility])[address] [place] [address] NEUTROPHILS/100 LEUKOCYTES IN BLOOD BY AUTOMATED COUNT 84.1 % High 40.0-72.0 [facility] Comment on above: Performed By: #### L [id number] ####[facility] ([facility])[address] [place] [address] POIKILOCYTOSIS (PRESENCE) IN BLOOD BY LIGHT MICROSCOPY Moderate Normal [facility] Comment on above: Performed By: #### L [id number] ####[facility] ([facility])[address] [place] [address] POLYCHROMASIA IN BLOOD BY LIGHT MICROSCOPY Slight Normal [facility] Comment on above: Performed By: #### L [id number] ####[facility] ([facility])[address] [place] [address] TARGET CELLS IN BLOOD BY LIGHT MICROSCOPY Slight Normal [facility] Comment on above: Performed By: #### L [id number] ####[facility] ([facility])[address] [place] [address] PATHOLOGY REVIEWon PATHOLOGY REVIEW Electronically jerilyn d by Niecy Montejo MD on 04/12/24 at 12:11 PM. Normal [facility] Comment on above: Performed By: #### L [id number] ####[facility] ([facility])[address] [place] [address] PHOSPHORUSon 04-09-2024 Magnesium [Mass/Vol] 3.0 mg/dL Normal 2.5-5.0 [facility] Comment on above: Performed By: #### L [id number] ####[facility] ([facility])[address] [place] [address] PROTIME-INRon 04-09-2024 INR IN PPP BY COAGULATION ASSAY 1.26 High 0.90-1.10 [facility] Comment on above: Result Comment: [facility] P RECOMMENDED INR FOR [facility] THERAPY CONDITION INRPROPHYLAXIS OF VENOUS THROMBOSIS 2-3(HIGH-RISK SURGERY)TREATMENT OF VENOUS THROMBOSIS 2-3TREATMENT OF PULMONARY EMBOLISM 2-3PREVENTION OF SYSTEMIC EMBOLISM: 2-3 ACUTE MYOCARDIAL INFARCTION TISSUE HEART VALVES VALVULAR HEART DISEASE ATRIAL FIBRILLATION RECURRENT SYSTEMIC EMBOLISMMECHANICAL HEART VALVE 2.5-3.5 FROM: ORAL ANTICOAGULANTS. MECHANISM OF ACTION, CLINICAL EFFECTIVENESS, AND OPTIMAL THERAPEUTIC RANGE. CHEST 1995;108:231S-246S. Performed By: #### L [id number] ####[facility] ([facility])[address] [place] [address] PROTHROMBIN TIME (PT) IN PPP BY COAGULATION ASSAY 15.8 Seconds High 12.3-14.8 [facility] Comment on above: Performed By: #### L [id number] ####[facility] ([facility])[address] [place] [address] TYPE AND SCREENon 04-09-2024 AB SCREEN Negative Normal [facility] Comment on above: Performed By: #### L [id number] ####[facility]OD [facility], ABO group Nom (Bld) A Normal [facility] Comment on above: Performed By: #### L [id number] ####[facility], RH TYPE IN BLOOD Positive Normal [facility] Comment on above: Performed By: #### L [id number] ####[facility], URIC ACIDon 04-09-2024 URATE (MG/DL) IN SER/PLAS <1.5 Low 2.3-6.6 [facility] Comment on above: Performed By: #### L [id number] ####[facility] ([facility])[address] [place] [address] VITAMIN B12on 04-09-2024 Cobalamin (Vitamin B12) [Mass/Vol] 387 pg/mL Normal 180-914 [facility] Comment on above: Result Comment: REFE RENCE RANGES:180-914 pg/mL [id number] pg/mL Indeterminate<145 pg/mL Deficient Performed By: #### L [id number] ####[facility] ([facility])[address] [place] [address] 30on 04-08-2024 30 Normal [facility] ANTI-XA (HEPARIN LEVEL)on HEPARIN UNFRACTIONATED (U/ML) IN PPP BY CHROMOGENIC METHOD >1.00 Critically high 0.3-0.7 [facility] Comment on above: Order Comment: Check anti-Xa level every 6 hours while on heparin infusion, or per protocol. Result Comment: Oakes roxaban and Apixaban will interfere with the anti Xa assay used to monitor UFH and LMWH. Performed By: #### L [id number] ####[facility] ([facility])[address] [place] [address] APTTon 04-08-2024 ACTIVATED PARTIAL THROMBOPLASTIN TIME IN PPP BY COAGULATION ASSAY 29.6 Seconds Normal 25.0-35.0 [facility] Comment on above: Order Comment: Basel ine aPTT before initiating heparin infusion. Result Comment: Clin ical significance of the APTT is questionable in the presence of heparin. Performed By: #### L [id number] ####[facility] (BEAKER)[address] [place] [address] BASIC METABOLIC PANELon Anion gap [Moles/Vol] 14 mmol/L Normal 7-20 [facility] Comment on above: Performed By: #### L [id number] ####[facility] ([facility])[address] [place] [address] Calcium [Mass/Vol] 9.2 mg/dL Normal 8.6-10.3 [facility] Comment on above: Performed By: #### L [id number] ####[facility] ([facility])[address] [place] [address] Chloride [Moles/Vol] 100 mmol/L Normal 98-107 [facility] Comment on above: Performed By: #### L [id number] ####[facility] ([facility]ER)[address] [place] [address] CO2 [Moles/Vol] 22 mmol/L Normal 21-31 [facility] Comment on above: Performed By: #### L [id number] ####[facility] ([facility])[address] [place] [address] Creatinine [Mass/Vol] 0.48 mg/dL Low 0.60-1.20 [facility] Comment on above: Performed By: #### L [id number] ####[facility] ([facility])[address] [place] [address] GLOMERULAR FILTRATION RATE ML/MIN/1.73 SQ M.PREDICTED 123.5 mL/min/1.73m*2 Normal >60.0 [facility] Comment on above: Result Comment: The [facility]???s estimated glomerular filtration rate (eGFR) will no longer include consideration of race in its calculation. The National Kidney Foundation???s eGFR Task Force developed new recommendations for the estimation of the glomerular filtration rate in the [place] They recommend immediate implementation of the new equation refit without the race variable in all laboratories because the calculation does not include race. In addition to not including race in the calculation and reporting, it included diversity in its development, and has acceptable performance characteristics and potential consequences that do not disproportionately affect any one group of individuals. Performed By: #### L [id number] ####[facility] ([facility])[address] [place] [address] Glucose [Mass/Vol] 145 mg/dL High 70-100 [facility] Comment on above: Performed By: #### L [id number] ####[facility] ([facility])[address] [place] [address] Potassium [Moles/Vol] 4.2 mmol/L Normal 3.5-5.1 [facility] Comment on above: Performed By: #### L [id number] ####[facility] ([facility])[address] [place] [address] Sodium [Moles/Vol] 132 mmol/L Low 136-145 [facility] Comment on above: Performed By: #### L [id number] ####[facility] ([facility])[address] [place] [address] Urea nitrogen [Mass/Vol] 10 mg/dL Normal 7-25 [facility] Comment on above: Performed By: #### L [id number] ####[facility] ([facility])[address] [place] [address] UREA NITROGEN/CREATININE (MASS RATIO) IN SER/PLAS 20.8 Normal [facility] Comment on above: Performed By: #### L [id number] ####[facility] ([facility])[address] [place] [address] CBCon 04-08-2024 Erythrocyte distribution width (RBC) [Ratio] 16.1 % High 11.5-15.0 [facility] Comment on above: Performed By: #### L [id number] ####[facility] ([facility])[address] [place] [address] ERYTHROCYTE MEAN CORPUSCULAR HEMOGLOBIN CONCENTRATION (G/DL) BY AUTOMATED 31.6 g/dL Low 32.0-35.0 [facility] Comment on above: Performed By: #### L [id number] ####[facility] ([facility])[address] [place] [address] Hematocrit (Bld) [Volume fraction] 38.3 % Normal 36.0-48.0 [facility] Comment on above: Performed By: #### L [id number] ####[facility] ([facility])[address] [place] [address] Hemoglobin (Bld) [Mass/Vol] 12.1 g/dL Normal 12.0-15.0 [facility] Comment on above: Performed By: #### L [id number] ####[facility] ([facility])[address] [place] [address] MCH (RBC) [Entitic mass] 24.7 pg Low 27.0-33.0 [facility] Comment on above: Performed By: #### L [id number] ####[facility] ([facility])[address] [place] [address] MCV (RBC) [Entitic vol] 78.3 fL Low 82.0-98.0 [facility] Comment on above: Performed By: #### L [id number] ####[facility] ([facility])[address] [place] [place] [address] PLATELETS (10*3/UL) IN BLOOD AUTOMATED COUNT 383 10*3/uL Normal 150-400 [facility] Comment on above: Performed By: #### L [id number] ####[facility] ([facility])[address] [place] [address] RBC (Bld) [#/Vol] 4.89 10*6/uL Normal 3.80-5.00 [facility] Comment on above: Performed By: #### L [id number] ####[facility] ([facility])[address] [place] [address] WBC (Bld) [#/Vol] 18.47 10*3/uL High 4.00-10.60 [facility] Comment on above: Performed By: #### L [id number] ####[facility] ([facility])[address] [place] [address] CONSULTon 04-08-2024 CONSULT Normal [facility] LACTATE DEHYDROGENASEon 07-0 LACTATE DEHYDROGENASE (U/L) IN SER/PLAS BY LAC->PYR RXN 961 U/L High 140-271 [facility] Comment on above: Performed By: #### L [id number] ####[facility] ([facility])[address] [place] [address] MAGNESIUMon 04-08-2024 Magnesium [Mass/Vol] 2.2 mg/dL Normal 1.9-2.7 [facility] Comment on above: Performed By: #### L [id number] ####[facility] ([facility])[address] [place] [address] PHOSPHORUSon 04-08-2024 Magnesium [Mass/Vol] 3.2 mg/dL Normal 2.5-5.0 [facility] Comment on above: Performed By: #### L [id number] ####[facility] ([facility])[address] [place] [address] PLATELET COUNTon 04-08-2024 PLATELETS (10*3/UL) IN BLOOD AUTOMATED COUNT 392 10*3/uL Normal 150-400 [facility] Comment on above: Performed By: #### L [id number] ####[facility] ([facility])[address] [place] [address] URIC ACIDon 04-08-2024 Magnesium [Mass/Vol] 2.0 mg/dL Low 2.3-6.6 [facility] Comment on above: Performed By: #### L [id number] ####[facility] ([facility])[address] [place] [address] [id number] 04-07-2024 [id number] Normal [facility] 30on 04-07-2024 30 Normal [facility] ANESon 04-07-2024 ANES Normal [facility] ANES Normal [facility] BASIC METABOLIC PANELon 07 Anion gap [Moles/Vol] 13 mmol/L Normal 7-20 [facility] Comment on above: Performed By: #### L [id number] ####[facility] ([facility])[address] [place] [address] Calcium [Mass/Vol] 9.1 mg/dL Normal 8.6-10.3 [facility] Comment on above: Performed By: #### L [id number] ####[facility] ([facility])[address] [place] [address] Chloride [Moles/Vol] 98 mmol/L Normal 98-107 [facility] Comment on above: Performed By: #### L [id number] ####[facility] ([facility])[address] [place] [address] CO2 [Moles/Vol] 24 mmol/L Normal 21-31 [facility] Comment on above: Performed By: #### L [id number] ####[facility] ([facility])[address] [place] [address] Creatinine [Mass/Vol] 0.71 mg/dL Normal 0.60-1.20 [facility] Comment on above: Performed By: #### L [id number] ####[facility] ([facility])[address] [place] [address] GLOMERULAR FILTRATION RATE ML/MIN/1.73 SQ M.PREDICTED 110.9 mL/min/1.73m*2 Normal >60.0 [facility] Comment on above: Result Comment: The [facility]???s estimated glomerular filtration rate (eGFR) will no longer include consideration of race in its calculation. The National Kidney Foundation???s eGFR Task Force developed new recommendations for the estimation of the glomerular filtration rate in the [place] They recommend immediate implementation of the new equation refit without the race variable in all laboratories because the calculation does not include race. In addition to not including race in the calculation and reporting, it included diversity in its development, and has acceptable performance characteristics and potential consequences that do not disproportionately affect any one group of individuals. Performed By: #### L [id number] ####[facility] ([facility])[address] [place] [address] Glucose [Mass/Vol] 156 mg/dL High 70-100 [facility] Comment on above: Performed By: #### L [id number] ####[facility] ([facility])[address] [place] [address] Potassium [Moles/Vol] 5.0 mmol/L Normal 3.5-5.1 [facility] Comment on above: Performed By: #### L [id number] ####[facility] ([facility])[address] [place] [address] Sodium [Moles/Vol] 130 mmol/L Low 136-145 [facility] Comment on above: Performed By: #### L [id number] ####[facility] ([facility])[address] [place] [address] Urea nitrogen [Mass/Vol] 11 mg/dL Normal 7-25 [facility] Comment on above: Performed By: #### L [id number] ####[facility] ([facility])[address] [place] [address] UREA NITROGEN/CREATININE (MASS RATIO) IN SER/PLAS 15.5 Normal [facility] Comment on above: Performed By: #### L [id number] ####[facility] ([facility])[address] [place] [address] CBCon 04-07-2024 Erythrocyte distribution width (RBC) [Ratio] 15.9 % High 11.5-15.0 [facility] Comment on above: Performed By: #### L [id number] ####[facility] ([facility])[address] [place] [address] ERYTHROCYTE MEAN CORPUSCULAR HEMOGLOBIN CONCENTRATION (G/DL) BY AUTOMATED 31.3 g/dL Low 32.0-35.0 [facility] Comment on above: Performed By: #### L [id number] ####[facility] ([facility])[address] [place] [address] Hematocrit (Bld) [Volume fraction] 40.6 % Normal 36.0-48.0 [facility] Comment on above: Performed By: #### L [id number] ####[facility] ([facility])[address] [place] [address] Hemoglobin (Bld) [Mass/Vol] 12.7 g/dL Normal 12.0-15.0 [facility] Comment on above: Performed By: #### L [id number] ####[facility] ([facility])[address] [place] [address] MCH (RBC) [Entitic mass] 24.7 pg Low 27.0-33.0 [facility] Comment on above: Performed By: #### L [id number] ####[facility] ([facility])[address] [place] [address] MCV (RBC) [Entitic vol] 79.0 fL Low 82.0-98.0 [facility] Comment on above: Performed By: #### L [id number] ####[facility] ([facility])[address] [place] [address] PLATELETS (10*3/UL) IN BLOOD AUTOMATED COUNT 375 10*3/uL Normal 150-400 [facility] Comment on above: Performed By: #### L [id number] ####[facility] ([facility])[address] [place] [address] RBC (Bld) [#/Vol] 5.14 10*6/uL High 3.80-5.00 [facility] Comment on above: Performed By: #### L [id number] ####[facility] ([facility])[address] [place] [address] WBC (Bld) [#/Vol] 10.42 10*3/uL Normal 4.00-10.60 [facility] Comment on above: Performed By: #### L [id number] ####[facility] ([facility])[address] [place] [address] CONSULTon 04-07-2024 CONSULT Normal [facility] CONSULT Normal [facility] CT ABDOMEN PELVIS W IV CONTR Shannan 04-07-2024 CT ABDOMEN PELVIS W IV CONTRAST Invalid Interpretation Code [facility] CT CHEST W IV CONTRASTon CT CHEST W IV CONTRAST Invalid Interpretation Code [facility] CT SOFT TISSUE NECK W IV CON TRASTon 04-07-2024 CT SOFT TISSUE NECK W IV CONTRAST Invalid Interpretation Code [facility] HPon 04-07-2024 HP Normal [facility] MAGNESIUMon 04-07-2024 Magnesium [Mass/Vol] 2.1 mg/dL Normal 1.9-2.7 [facility] Comment on above: Performed By: #### L [id number] ####[facility] ([facility])[address] [place] [address] NON-APPLE THINNER CYTOLOGY - CELLULAR EXAMon 04-07-2024 LAB AP ANCILLARY RESULTS Normal [facility] Comment on above: Result Comment: Flow cytometry studies were completed at [facility] Laboratories:Leukemia/lymphoma phenotyping evaluation by flow cytometry, subcarinal lymph node: - Atypical immature T lineage cells accounting for 44% of viable leukocytes. See comment.Comment: Although not diagnostic without confirmation, the expression patterns of absent CD1a, partial CD5, absent CD8, and myeloid/stem cell antigens (partial CD34, partial CD33), suggest T-lymphoblastic leukemia/lymphoma and an early T-cell precursor (ETP) subtype. Correlation with morphologic and cytogenetic findings will be required to make a definitive diagnosis.Population phenotype:Positive: HLA-DR, cCD3, partial surface CD3, CD4, partial weak CD5 (45%+), strong CD7, partial CD11b, partial CD33, partial CD34, bright CD38, weak CD45, CD71, partial low CD123.Negative: cMPO, cTdT, cCD22, cCD79a, CD1a, CD2, CD8, CD10, CD13, CD14, CD15, CD19, CD20, CD30, CD56, CD64, CD117 Performed By: #### L AB13 ####[facility] ([facility])[address] [place] [address] LAB AP CASE REPORT Normal [facility] Comment on above: Result Comment: Non- gynecologic Cytology Case: [id number] Provider: Braulio Mclean MD Collected: 04/07/2024 1055Ordering Location: [facility] Main Operating Room Received: 04/07/2024 1152Pathologist: JUDIE Hamiltonpecimen: Lymph Node, Subcarinal, SUBCARINAL LYMPHNODE/ SUBCARINAL MASS Performed By: #### L AB13 ####[facility] ([facility])[address] [place] [address] LAB AP CLINICAL INFORMATION 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 Montejo, agrees with the above diagnosis. Normal [facility] Comment on above: Performed By: #### L AB13 ####[facility] ([facility])[address] [place] [address] LAB AP GROSS DESCRIPTION [facility] Comment on above: Result Comment: 7 ai r-dried slides, 3 alcohol-fixed slides, 30 mL CytoLyt with hazy, red fluid and clots. Performed By: #### L [id number] ####[facility] ([facility])[address] [place] [address] LAB AP INTRAOPERATIVE CONSULTATION [facility] Comment on above: Result Comment: Irwin Garcia ymph Node, Subcarinal.Rapid on-site evaluation was performed by Cori Aburto MD.The material examined during rapid on-site evaluation was deemed adequate for diagnosis.Pass #1: AdequatePass #2: AdequatePass #3: Defer - flowPass #4: Defer - flowPass #5: Defer - flowPass #6: AdequatePass #7: Defer - cell blockPass #8: Defer - flowPass #9: Defer - cell blockPass #10: Defer - cell blockPass #11: Defer - cell blockPass #12: Defer - cell block, Diff Quick slidePass #13: Defer - cell block*Only select material is examined during the on-site evaluation. 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 - See flow cytometry report.Final Diagnosis was reviewed during inter-department consult. Performed By: #### L [id number] ####[facility] ([facility])[address] [place] [address] NURSNOTEon 04-07-2024 NURSNOTE Ebus scope 111 remai ns in upon arrival to OR. [facility] NURSNOTE Ebus Scope remains i n upon arrival to OR. [facility] PHOSPHORUSon 04-07-2024 Magnesium [Mass/Vol] 3.9 mg/dL Normal 2.5-5.0 [facility] Comment on above: Performed By: #### L [id number] ####[facility] ([facility])[address] [place] [address] PROTIME-INRon 04-07-2024 INR IN PPP BY COAGULATION ASSAY 1.19 High 0.90-1.10 [facility] Comment on above: Result Comment: ACCC P RECOMMENDED INR FOR WARFARIN THERAPY CONDITION INRPROPHYLAXIS OF VENOUS THROMBOSIS 2-3(HIGH-RISK SURGERY)TREATMENT OF VENOUS THROMBOSIS 2-3TREATMENT OF PULMONARY EMBOLISM 2-3PREVENTION OF SYSTEMIC EMBOLISM: 2-3 ACUTE MYOCARDIAL INFARCTION TISSUE HEART VALVES VALVULAR HEART DISEASE ATRIAL FIBRILLATION RECURRENT SYSTEMIC EMBOLISMMECHANICAL HEART VALVE 2.5-3.5 FROM: ORAL ANTICOAGULANTS. MECHANISM OF ACTION, CLINICAL EFFECTIVENESS, AND OPTIMAL THERAPEUTIC RANGE. CHEST 1995;108:231S-246S. Performed By: #### L [id number] ####[facility] ([facility])[address] [place] [address] PROTHROMBIN TIME (PT) IN PPP BY COAGULATION ASSAY 15.2 Seconds High 12.3-14.8 [facility] Comment on above: Performed By: #### L [id number] ####[facility] ([facility])[address] [place] [address] TRIGLYCERIDESon 04-07-2024 FASTING? UNKNOWN Normal [facility] Comment on above: Order Comment: Monit or triglycerides while patient is on propofol. Consult Nutrition if greater than 500 mg/dL. Performed By: #### L [id number] ####[facility] ([facility]ER)[address] [place] [address] Magnesium [Mass/Vol] 74 mg/dL Normal 40-149 [facility] Comment on above: Order Comment: Monit or triglycerides while patient is on propofol. Consult Nutrition if greater than 500 mg/dL. Result Comment: TRIG LYCERIDE REFERENCE RANGE:20 YEARS AND OLDER CARDIOVASCULAR RISKLESS THAN 150 mg/dL LOW [id number] TO 199 mg/dL BORDERLINE [id number] mg/dL AND GREATER HIGH RISK Performed By: #### L [id number] ####[facility] ([facility])[address] [place] [address] Orders Onlyon 04-06-2024 Orders Only [id number] Sonya Meyer 1985 F Date Provider Department Center 04/06/2024 BRAULIO FRANKEL [facility] No family history on file Normal [facility] XR ABDOMEN 2 VIEWon 01-28-20 24 XR ABDOMEN 2 VIEW FINDINGS: Moderate volume of ascending colon stool tapering through the hepatic flexure and transverse colon. No mass effect or free air. No evidence of obstruction. No urinary tract stones. IMPRESSION: 1. Proximal colon stool, no obstruction. TRANSCRIBED BY: ELECTRONICALLY SIGNED BY: Valeriano Easton MD Normal Not Available US Breast Limited, Righton 1 10-16-2021 US Breast Limited, Right HISTORY: Right breast lump FINDINGS: Sonographic evaluation of the right breast demonstrates no suspicious cystic or solid mass lesions, distortion or ductal dilatation. Echotexture is normal for this age. IMPRESSION: BI-RADS 2 Benign Report reported and signed by Valeriano Easton on 08/16/2022 1512 Normal [facility] Health Navigator Vital Signs Date Time Vital Sign Value Performing Clinician Facility 11-24-2024 09:58-0500 Body height 152 cm Shana Ferguson APRN.CNP Work Phone: [facility] 11-24-2024 09:58-0500 Body mass index (BMI) [Ratio] 29.35 kg/m2 Shana Ferguson APRN.CNP Work Phone: [facility] 11-24-2024 09:58-0500 Body temperature 98.29 [degF] Shana Bundridge SAIL REPAIR PERSON.DATA REVIEW SPECIALIST Work Phone: [facility] 11-24-2024 09:58-0500 Body weight 67.8 kg Shana Bundridge SAIL REPAIR PERSON.DATA REVIEW SPECIALIST Work Phone: [facility] 11-24-2024 09:58-0500 Diastolic blood pressure 93 mm[Hg] Shana Bundridge SAIL REPAIR PERSON.DATA REVIEW SPECIALIST Work Phone: [facility] 11-24-2024 09:58-0500 Heart rate 115 /min Shana Bundridge SAIL REPAIR PERSON.DATA REVIEW SPECIALIST Work Phone: [facility] 11-24-2024 09:58-0500 Respiratory rate 16 /min Shana Bundridge SAIL REPAIR PERSON.DATA REVIEW SPECIALIST Work Phone: [facility] 11-24-2024 09:58-0500 SaO2% (BldA) [Mass fraction] 98 % Shana Bundridge SAIL REPAIR PERSON.DATA REVIEW SPECIALIST Work Phone: [facility] 11-24-2024 09:58-0500 Systolic blood pressure 153 mm[Hg] Shana Bundridge SAIL REPAIR PERSON.DATA REVIEW SPECIALIST Work Phone: [facility] 11-18-2024 07:03-0500 Diastolic blood pressure 110 mm[Hg] Mri (I-Stat/1.5t) [facility] 11-18-2024 07:03-0500 Heart rate 100 /min Mri (I-Stat/1.5t) [facility] 11-18-2024 07:03-0500 Systolic blood pressure 150 mm[Hg] Mri (I-Stat/1.5t) [facility] 10-15-2024 10:12-0500 Body mass index (BMI) [Ratio] 31.9 kg/m2 Marcelina Rangel MD, PhD Work Phone: [facility] 10-15-2024 10:12-0500 Body temperature 98.91 [degF] Marcelina Rangel MD, PhD Work Phone: [facility] 10-15-2024 10:12-0500 Body weight 73.7 kg Marcelina Rangel MD, PhD Work Phone: [facility] Comment on above: Shoes on 10-15-2024 10:12-0500 Diastolic blood pressure 80 mm[Hg] Marcelina Rangel MD, PhD Work Phone: [facility] 10-15-2024 10:12-0500 Heart rate 127 /min Marcelina Rangel MD, PhD Work Phone: [facility] 10-15-2024 10:12-0500 Respiratory rate 18 /min Marcelina Rangel MD, PhD Work Phone: [facility] 10-15-2024 10:12-0500 SaO2% (BldA) [Mass fraction] 93 % Marcelina Rangel MD, PhD Work Phone: [facility] Comment on above: RA 10-15-2024 10:12-0500 Systolic blood pressure 138 mm[Hg] Marcelina Rangel MD, PhD Work Phone: [facility] 10-14-2024 14:36-0500 Body mass index (BMI) [Ratio] 31.94 kg/m2 Shana Bundridge SAIL REPAIR PERSON.DATA REVIEW SPECIALIST Work Phone: [facility] 10-14-2024 14:36-0500 Body temperature 97.59 [degF] Shana Bundridge SAIL REPAIR PERSON.DATA REVIEW SPECIALIST Work Phone: [facility] 10-14-2024 14:36-0500 Body weight 73.8 kg Shana Bundridge SAIL REPAIR PERSON.DATA REVIEW SPECIALIST Work Phone: [facility] 10-14-2024 14:36-0500 Diastolic blood pressure 79 mm[Hg] Shana Bundridge SAIL REPAIR PERSON.DATA REVIEW SPECIALIST Work Phone: [facility] 10-14-2024 14:36-0500 Heart rate 121 /min Shana Bundridge SAIL REPAIR PERSON.DATA REVIEW SPECIALIST Work Phone: [facility] 10-14-2024 14:36-0500 Respiratory rate 18 /min Shana Bundridge SAIL REPAIR PERSON.DATA REVIEW SPECIALIST Work Phone: [facility] 10-14-2024 14:36-0500 SaO2% (BldA) [Mass fraction] 97 % Shana Bundridge SAIL REPAIR PERSON.DATA REVIEW SPECIALIST Work Phone: [facility] 10-14-2024 14:36-0500 Systolic blood pressure 136 mm[Hg] Shana Bundridge SAIL REPAIR PERSON.DATA REVIEW SPECIALIST Work Phone: [facility] 09-20-2024 15:08-0500 Body mass index (BMI) [Ratio] 32.4 kg/m2 Kobe Medellin MD Work Phone: [facility] 09-20-2024 15:08-0500 Body temperature 98.71 [degF] Kobe Medellin MD Work Phone: [facility] 09-20-2024 15:08-0500 Body weight 72.8 kg Kobe Medellin MD Work Phone: [facility] Comment on above: Shoes on 09-20-2024 15:08-0500 Diastolic blood pressure 90 mm[Hg] Kobe Medellin MD Work Phone: [facility] 09-20-2024 15:08-0500 Heart rate 81 /min Kobe Medellin MD Work Phone: [facility] 09-20-2024 15:08-0500 Respiratory rate 16 /min Kobe Medellin MD Work Phone: [facility] 09-20-2024 15:08-0500 SaO2% (BldA) [Mass fraction] 96 % Kobe Medellin MD Work Phone: [facility] Comment on above: RA 09-20-2024 15:08-0500 Systolic blood pressure 154 mm[Hg] Kobe Medellin MD Work Phone: [facility] 09-17-2024 15:05-0500 Body height 149.9 cm Shana Bundridge SAIL REPAIR PERSON.DATA REVIEW SPECIALIST Work Phone: [facility] 09-17-2024 15:05-0500 Body mass index (BMI) [Ratio] 32.18 kg/m2 Shana Bundridge SAIL REPAIR PERSON.DATA REVIEW SPECIALIST Work Phone: [facility] 09-17-2024 15:05-0500 Body temperature 98.2 [degF] Shana Bundridge SAIL REPAIR PERSON.DATA REVIEW SPECIALIST Work Phone: [facility] 09-17-2024 15:05-0500 Body weight 72.3 kg Shana Bundridge SAIL REPAIR PERSON.DATA REVIEW SPECIALIST Work Phone: [facility] 09-17-2024 15:05-0500 Diastolic blood pressure 72 mm[Hg] Shana Bundridge SAIL REPAIR PERSON.DATA REVIEW SPECIALIST Work Phone: [facility] 09-17-2024 15:05-0500 Heart rate 110 /min Shana Bundridge SAIL REPAIR PERSON.DATA REVIEW SPECIALIST Work Phone: [facility] 09-17-2024 15:05-0500 Respiratory rate 18 /min Shana Bundridge SAIL REPAIR PERSON.DATA REVIEW SPECIALIST Work Phone: [facility] 09-17-2024 15:05-0500 SaO2% (BldA) [Mass fraction] 96 % Shana Bundridge SAIL REPAIR PERSON.DATA REVIEW SPECIALIST Work Phone: [facility] 09-17-2024 15:05-0500 Systolic blood pressure 141 mm[Hg] Shana Bundridge SAIL REPAIR PERSON.DATA REVIEW SPECIALIST Work Phone: [facility] 08-23-2024 10:04-0500 Body mass index (BMI) [Ratio] 31.97 kg/m2 Marcelina Rangel MD, PhD Work Phone: [facility] 08-23-2024 10:04-0500 Body temperature 98.1 [degF] Marcelina Rangel MD, PhD Work Phone: [facility] 08-23-2024 10:04-0500 Body weight 71.8 kg Marcelina Rangel MD, PhD Work Phone: [facility] Comment on above: shoes on 08-23-2024 10:04-0500 Diastolic blood pressure 89 mm[Hg] Marcelina Rangel MD, PhD Work Phone: [facility] Comment on above: left leg 08-23-2024 10:04-0500 Heart rate 100 /min Marcelina Rangel MD, PhD Work Phone: [facility] 08-23-2024 10:04-0500 Respiratory rate 18 /min Marcelina Rangel MD, PhD Work Phone: [facility] 08-23-2024 10:04-0500 SaO2% (BldA) [Mass fraction] 97 % Marcelina Rangel MD, PhD Work Phone: [facility] 08-23-2024 10:04-0500 Systolic blood pressure 139 mm[Hg] Marcelina Rangel MD, PhD Work Phone: [facility] Comment on above: left leg 08-17-2024 09:53-0500 Diastolic blood pressure 94 mm[Hg] Bmbx 1 Work Phone: [facility] 08-17-2024 09:53-0500 Heart rate 115 /min Bmbx 1 Work Phone: [facility] 08-17-2024 09:53-0500 Respiratory rate 18 /min Bmbx 1 Work Phone: [facility] 08-17-2024 09:53-0500 Systolic blood pressure 146 mm[Hg] Bmbx 1 Work Phone: [facility] 08-09-2024 15:24-0500 Body mass index (BMI) [Ratio] 30.29 kg/m2 Manisha Mcknight MD Work Phone: [facility] 08-09-2024 15:24-0500 Body weight 72.12 kg Manisha Mcknight MD Work Phone: [facility] 08-09-2024 15:24-0500 Diastolic blood pressure 70 mm[Hg] Manisha Mcknight MD Work Phone: [facility] 08-09-2024 15:24-0500 Heart rate 104 /min Manisha cMknight MD Work Phone: [facility] 08-09-2024 15:24-0500 SaO2% (BldA) [Mass fraction] 99 % Manisha Mcknight MD Work Phone: [facility] 08-09-2024 15:24-0500 Systolic blood pressure 130 mm[Hg] Manisha Mcknight MD Work Phone: [facility] 08-06-2024 15:23-0400 Body temperature 98.2 [degF] Chair 2 Work Phone: [facility] 08-06-2024 15:23-0400 Diastolic blood pressure 79 mm[Hg] Chair 2 Work Phone: [facility] 08-06-2024 15:23-0400 Heart rate 99 /min Chair 2 Work Phone: [facility] 08-06-2024 15:23-0400 Respiratory rate 18 /min Chair 2 Work Phone: [facility] 08-06-2024 15:23-0400 SaO2% (BldA) [Mass fraction] 100 % Chair 2 Work Phone: [facility] 08-06-2024 15:23-0400 Systolic blood pressure 139 mm[Hg] Chair 2 Work Phone: [facility] 08-06-2024 13:54-0400 Diastolic blood pressure 60 mm[Hg] Bertin Lama SAIL REPAIR PERSON.DATA REVIEW SPECIALIST Work Phone: [facility] 08-06-2024 13:54-0400 Heart rate 79 /min Bertin Lama SAIL REPAIR PERSON.DATA REVIEW SPECIALIST Work Phone: [facility] 08-06-2024 13:54-0400 SaO2% (BldA) [Mass fraction] 100 % Bertin Lama SAIL REPAIR PERSON.DATA REVIEW SPECIALIST Work Phone: [facility] 08-06-2024 13:54-0400 Systolic blood pressure 124 mm[Hg] Bertin Lama SAIL REPAIR PERSON.DATA REVIEW SPECIALIST Work Phone: [facility] 08-06-2024 11:25-0400 Body temperature 99 [degF] Bertin Lama SAIL REPAIR PERSON.DATA REVIEW SPECIALIST Work Phone: [facility] 08-06-2024 11:25-0400 Respiratory rate 16 /min Bertin Lama SAIL REPAIR PERSON.DATA REVIEW SPECIALIST Work Phone: [facility] 07-16-2024 09:09-0400 Body mass index (BMI) [Ratio] 31.88 kg/m2 Marcelina Rangel MD, PhD Work Phone: [facility] 07-16-2024 09:09-0400 Body temperature 97.2 [degF] Marcelina Rangel MD, PhD Work Phone: [facility] 07-16-2024 09:09-0400 Body weight 71.6 kg Marcelina Rangel MD, PhD Work Phone: [facility] 07-16-2024 09:09-0400 Diastolic blood pressure 97 mm[Hg] Marcelina Rangel MD, PhD Work Phone: [facility] Comment on above: RLE 07-16-2024 09:09-0400 Heart rate 96 /min Marcelina Rangel MD, PhD Work Phone: [facility] 07-16-2024 09:09-0400 Respiratory rate 20 /min Marcelina Rangel MD, PhD Work Phone: [facility] 07-16-2024 09:09-0400 SaO2% (BldA) [Mass fraction] 100 % Marcelina Rangel MD, PhD Work Phone: [facility] 07-16-2024 09:09-0400 Systolic blood pressure 152 mm[Hg] Marcelina Rangel MD, PhD Work Phone: [facility] Comment on above: RLE 07-09-2024 14:44-0400 Body height 154.3 cm Manisha Mcknight MD Work Phone: [facility] 07-09-2024 14:44-0400 Body mass index (BMI) [Ratio] 30.1 kg/m2 Manisha Mcknight MD Work Phone: [facility] 07-09-2024 14:44-0400 Body weight 71.67 kg Manisha Mcknight MD Work Phone: [facility] 07-09-2024 14:44-0400 Diastolic blood pressure 86 mm[Hg] Manisha Mcknight MD Work Phone: [facility] 07-09-2024 14:44-0400 Heart rate 101 /min Manisha Mcknight MD Work Phone: [facility] 07-09-2024 14:44-0400 Respiratory rate 20 /min Manisha Mcknight MD Work Phone: [facility] 07-09-2024 14:44-0400 SaO2% (BldA) [Mass fraction] 96 % Manisha Mcknight MD Work Phone: [facility] 07-09-2024 14:44-0400 Systolic blood pressure 146 mm[Hg] Manisha Mcknight MD Work Phone: [facility] 07-01-2024 09:11-0400 Body temperature 97 [degF] Guille Dixon MD Work Phone: [facility] 07-01-2024 09:11-0400 Diastolic blood pressure 94 mm[Hg] Guille Dixon MD Work Phone: [facility] 07-01-2024 09:11-0400 Heart rate 86 /min Guille Dixon MD Work Phone: [facility] 07-01-2024 09:11-0400 SaO2% (BldA) [Mass fraction] 98 % Guille Dixon MD Work Phone: [facility] 07-01-2024 09:11-0400 Systolic blood pressure 155 mm[Hg] Guille Dixon MD Work Phone: [facility] 06-25-2024 14:46-0400 Body temperature 98.2 [degF] Chair Ntu Work Phone: [facility] 06-25-2024 14:46-0400 Diastolic blood pressure 80 mm[Hg] Chair Ntu Work Phone: [facility] 06-25-2024 14:46-0400 Heart rate 97 /min Chair Ntu Work Phone: [facility] 06-25-2024 14:46-0400 Respiratory rate 18 /min Chair Ntu Work Phone: [facility] 06-25-2024 14:46-0400 SaO2% (BldA) [Mass fraction] 91 % Chair Ntu Work Phone: [facility] 06-25-2024 14:46-0400 Systolic blood pressure 148 mm[Hg] Chair Ntu Work Phone: [facility] 06-18-2024 09:29-0400 Body height 149.9 cm Olga Ureña MD Work Phone: [facility] 06-18-2024 09:29-0400 Body mass index (BMI) [Ratio] 31.51 kg/m2 Olga Ureña MD Work Phone: [facility] 06-18-2024 09:29-0400 Body weight 70.76 kg Olga Ureña MD Work Phone: [facility] 06-18-2024 09:29-0400 Diastolic blood pressure 98 mm[Hg] Olga Ureña MD Work Phone: [facility] 06-18-2024 09:29-0400 Heart rate 102 /min Olga Ureña MD Work Phone: [facility] 06-18-2024 09:29-0400 Systolic blood pressure 159 mm[Hg] Olga Ureña MD Work Phone: [facility] 06-08-2024 12:55-0400 Diastolic blood pressure 66 mm[Hg] [employer] [facility] 06-08-2024 12:55-0400 Heart rate 99 /min [employer] [facility] 06-08-2024 12:55-0400 Respiratory rate 18 /min [employer] [facility] 06-08-2024 12:55-0400 SaO2% (BldA) [Mass fraction] 95 % [employer] [facility] 06-08-2024 12:55-0400 Systolic blood pressure 133 mm[Hg] [employer]st [facility] 06-08-2024 11:46-0400 Body temperature 98.91 [degF] [employer] Analyst [facility] 06-04-2024 13:51-0400 Body temperature 97.81 [degF] Chair 2 Work Phone: [facility] 06-04-2024 13:51-0400 Diastolic blood pressure 105 mm[Hg] Chair 2 Work Phone: [facility] 06-04-2024 13:51-0400 Heart rate 108 /min Chair 2 Work Phone: [facility] 06-04-2024 13:51-0400 Respiratory rate 20 /min Chair 2 Work Phone: [facility] 06-04-2024 13:51-0400 SaO2% (BldA) [Mass fraction] 99 % Chair 2 Work Phone: [facility] 06-04-2024 13:51-0400 Systolic blood pressure 154 mm[Hg] Chair 2 Work Phone: [facility] 05-28-2024 10:37-0400 Body mass index (BMI) [Ratio] 30.95 kg/m2 Marcelina Rangel MD, PhD Work Phone: [facility] 05-28-2024 10:37-0400 Body weight 71.5 kg Marcelina Rangel MD, PhD Work Phone: [facility] 05-28-2024 10:37-0400 Diastolic blood pressure 93 mm[Hg] Marcelina Rangel MD, PhD Work Phone: [facility] Comment on above: Right calf 05-28-2024 10:37-0400 Heart rate 131 /min Marcelina Rangel MD, PhD Work Phone: [facility] 05-28-2024 10:37-0400 Respiratory rate 18 /min Marcelina Rangel MD, PhD Work Phone: [facility] 05-28-2024 10:37-0400 SaO2% (BldA) [Mass fraction] 99 % Marcelina Rangel MD, PhD Work Phone: [facility] 05-28-2024 10:37-0400 Systolic blood pressure 151 mm[Hg] Marcelina Rangel MD, PhD Work Phone: [facility] Comment on above: Right calf 05-19-2024 13:44-0400 Body temperature 99.1 [degF] Chair 4 Work Phone: [facility] 05-19-2024 13:44-0400 Diastolic blood pressure 85 mm[Hg] Chair 4 Work Phone: [facility] Comment on above: r leg 05-19-2024 13:44-0400 Heart rate 93 /min Chair 4 Work Phone: [facility] 05-19-2024 13:44-0400 Respiratory rate 17 /min Chair 4 Work Phone: [facility] 05-19-2024 13:44-0400 SaO2% (BldA) [Mass fraction] 95 % Chair 4 Work Phone: [facility] 05-19-2024 13:44-0400 Systolic blood pressure 176 mm[Hg] Chair 4 Work Phone: [facility] Comment on above: r leg 02-17-2024 13:06-0400 Body height 152.4 cm Onesimo Mills MD Work Phone: [facility] [employer] [facility] 02-17-2024 13:06-0400 Body mass index (BMI) [Ratio] 37.65 kg/m2 Onesimo Mills MD Work Phone: [facility] [employer] [facility] 02-17-2024 13:06-0400 Body weight 87.45 kg Onesimo Mills MD Work Phone: [facility] 02-17-2024 13:06-0400 Diastolic blood pressure 85 mm[Hg] Onesimo Mills MD Work Phone: [facility] 02-17-2024 13:06-0400 Heart rate 92 /min Onesimo Mills MD Work Phone: [facility] [employer] [facility] 02-17-2024 13:06-0400 Systolic blood pressure 143 mm[Hg] Onesimo Mills MD Work Phone: [facility] Encounters Encounter Date Encounter Type Care Provider Facility Start: 01-03-2025 End: 01-03-2025 Telephone encounter Marcelina Rangel MD, PhD Work Phone: Hematology/Oncology Comment on above: 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 ) Start: 12-31-2024 End: 12-31-2024 Refill Breanna Roberts MD Work Phone: Hematology/Oncology Comment on above: Refill Request Start: 12-30-2024 End: 01-03-2025 Telephone encounter Marcelina Rangel MD, PhD Work Phone: Hematology/Oncology Comment on above: 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 (RX Refill ) Start: 12-24-2024 End: 12-24-2024 Patient encounter procedure Pulm Main Respiratory Therapy Work Phone: Pulmonary Medicine Start: 12-24-2024 End: 12-24-2024 ambulatory [facility] Work Phone: Hematology/Oncology Comment on above: 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 Treatmen t Start: 12-23-2024 End: 12-23-2024 Orders Only Marcelina Rangel MD, PhD Work Phone: Hematology/Oncology Start: 12-20-2024 End: 12-20-2024 Telephone encounter Manisha Mcknight MD Work Phone: [facility] Comment on above: 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) Start: 12-16-2024 End: 12-16-2024 Patient encounter procedure Olga Ureña MD Work Phone: Vascular Medicine Comment on above: 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); Anticoagulation management encounter; Personal history of DVT (deep vein thrombosis); Pulmonary embolism, unspecified chronicity, unspecified pulmonary embolism type, unspecified whether acute cor pulmonale present (HCC) Start: 12-16-2024 End: 12-16-2024 Telemedicine consultation with patient Olga Ureña MD Work Phone: Vascular Medicine Start: 12-16-2024 End: 12-16-2024 ambulatory MANISHA MCKNIGHT Facility:[facility] Start: 12-15-2024 End: 12-15-2024 Telephone encounter Vignesh Chappell RN Hematology/Oncology Comment on above: Medication Update (R esume date for MP6 (12/15/2024)) Start: 12-14-2024 End: 12-14-2024 Refill Marcelina Rangel MD, PhD Work Phone: Hematology/Oncology Comment on above: Refill Request 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); Mediastinal mass; Severe protein-calorie malnutrition (HCC) Start: 12-08-2024 End: 12-09-2024 Refill Marcelina Rangel MD, PhD Work Phone: Hematology/Oncology Comment on above: Refill Request Start: 12-07-2024 End: 12-07-2024 Clinisync Result Encounter Generic External Data Provider [facility] External Department Unsolicited Start: 12-07-2024 End: 12-07-2024 Clinisync Result Encounter Generic External Data Provider [facility] External Department Unsolicited Start: 12-03-2024 End: 12-04-2024 Refsudha Roberts MD Work Phone: Hematology/Oncology Comment on above: 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 Request 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) Start: 12-01-2024 End: 12-01-2024 Clinisync Result Encounter Generic External Data Provider [facility] External Department Unsolicited Start: 12-01-2024 End: 12-01-2024 Clinisync Result Encounter Generic External Data Provider [facility] External Department Unsolicited Start: 11-29-2024 End: 11-29-[address] Work Phone: Nutrition Therapy Start: 11-29-2024 End: 11-29-[address] Garcia RD Work Phone: Nutrition Therapy Comment on above: Nutrition Assessment Start: 11-25-2024 End: 11-25-2024 Orders Only Marcelina Rangel MD, PhD Work Phone: Hematology/Oncology Comment on above: Medication Update (M P6 and Fluconazole hold date (11/25/2024)) pentamidine treatmen t Start: 11-24-2024 End: 11-24-2024 Clinisync Result Encounter Generic External Data Provider [facility] External Department Unsolicited Start: 11-24-2024 End: 11-24-2024 Clinisync Result Encounter Generic External Data Provider [facility] External Department Unsolicited Start: 11-24-2024 End: 11-24-2024 ambulatory SHANA FERGUSON Facility:[facility] Start: 11-24-2024 End: 11-24-2024 Patient encounter procedure Shana Ferguson SAIL REPAIR PERSON.DATA REVIEW SPECIALIST Work Phone: Palliative Medicine Comment on above: Palliative care by s pecialist (Primary Dx); Neoplasm related pain; 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HCC); Anxiety about health; Anorexia; Nausea; Chronic cough; On tube feeding diet Start: 11-23-2024 End: 11-23-2024 ambulatory Laly Buchanan APRN.DATA REVIEW SPECIALIST Work Phone: Endocrinology Comment on above: Type 2 diabetes gonzález itus with hyperglycemia, with long-term current use of insulin (HCC) (Primary Dx); Type 2 diabetes mellitus without complication, with long-term current use of insulin (HCC) Start: 11-23-2024 End: 11-23-2024 Telemedicine consultation with patient Laly Buchanan APRN.DATA REVIEW SPECIALIST Work Phone: Endocrinology Start: 11-22-2024 End: 11-22-2024 ambulatory Laly Buchanan APRN.DATA REVIEW SPECIALIST Work Phone: Endocrinology Comment on above: Verena Share Code Refill Request Start: 11-22-2024 End: 11-22-2024 E-mail encounter from caregiver Laly Buchanan APRN.DATA REVIEW SPECIALIST Work Phone: Endocrinology Start: 11-18-2024 End: 11-18-2024 Clinisync Result Encounter Generic External Data Provider [facility] External Department Unsolicited Start: 11-18-2024 End: 11-18-2024 Clinisync Result Encounter Generic External Data Provider [facility] External Department Unsolicited Start: 11-18-2024 End: 11-18-2024 Telephone encounter Marcelina Rangel MD, PhD Work Phone: Hematology/Oncology 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: 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 - [facility] has not received ) Start: 11-18-2024 End: 11-18-2024 ambulatory MANISHA MCKNIGHT Facility:[facility] Start: 11-18-2024 End: 11-18-2024 Subsequent hospital visit by physician Azra Main J (I-Stat/1.5t) MRI J Comment on above: 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] Start: 11-17-2024 End: 11-17-2024 Clinisync Result Encounter Generic External Data Provider [facility] External Department Unsolicited Start: 11-17-2024 End: 11-17-2024 Clinisync Result Encounter Generic External Data Provider [facility] External Department Unsolicited Start: 11-17-2024 End: 11-17-2024 Orders Only Floyd Bain MD Work Phone: Cardiology Comment on above: 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HCC) (Primary Dx) Start: 11-16-2024 End: 11-16-2024 Telemedicine consultation with patient Kobe Medellin MD Work Phone: Radiation Oncology Start: 11-16-2024 End: 11-16-2024 ambulatory Kobe Medellin MD Work Phone: Radiation Oncology Comment on above: 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) Start: 11-15-2024 End: 11-17-2024 Refill Marcelina Rangel MD, PhD Work Phone: Hematology/Oncology Comment on above: Refill Request Start: 11-12-2024 End: 11-12-2024 ambulatory Marcelina Rangel MD, PhD Work Phone: Hematology/Oncology Comment on above: 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) Start: 11-12-2024 End: 11-12-2024 Telemedicine consultation with patient Marcelina Rangel MD, PhD Work Phone: Hematology/Oncology Start: 11-09-2024 End: 11-09-2024 Clinisync Result Encounter Generic External Data Provider [facility] External Department Unsolicited Start: 11-09-2024 End: 11-09-2024 Clinisync Result Encounter Generic External Data Provider [facility] External Department Unsolicited Start: 11-09-2024 End: 11-09-2024 Telephone encounter Marcelina Rangel MD, PhD Work Phone: Hematology/Oncology 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) Start: 11-04-2024 End: 11-04-2024 ambulatory Syd Horne Facility:[facility] Start: 11-02-2024 End: 11-02-2024 Clinisync Result Encounter Generic External Data Provider [facility] External Department Unsolicited Start: 11-02-2024 End: 11-02-2024 Clinisync Result Encounter Generic External Data Provider [facility] External Department Unsolicited Start: 11-01-2024 End: 11-02-2024 Telephone encounter Marcelina Rangel MD, PhD Work Phone: Hematology/Oncology Comment on above: 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 (Vincristine ) 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 (DUSTIN) Start: 10-29-2024 End: 10-29-2024 Refill Marcelina Rangel MD, PhD Work Phone: Hematology/Oncology Comment on above: Refill Request Start: 10-28-2024 End: 10-28-2024 ambulatory KOBE MEDELLIN Facility:[facility] Start: 10-28-2024 End: 10-28-2024 Subsequent hospital visit by physician Arrival Time Radiology Work Phone: Radiology [facility] Comment on above: 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] Start: 10-27-2024 End: 10-27-2024 Clinisync Result Encounter Generic External Data Provider [facility] External Department Unsolicited Start: 10-27-2024 End: 10-27-2024 Clinisync Result Encounter Generic External Data Provider [facility] External Department Unsolicited Start: 10-21-2024 End: 10-22-2024 Telephone encounter Vignesh Chappell RN Hematology/Oncology Comment on above: 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 ([id number] Review) Start: 10-20-2024 End: 10-21-2024 Telephone encounter Marcelina Rangel MD, PhD Work Phone: Hematology/Oncology Comment on above: 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 (Lovenox- Pharmacy change) Start: 10-19-2024 End: 10-21-2024 Refill Marcelina Rangel MD, PhD Work Phone: Hematology/Oncology Comment on above: Refill Request Start: 10-18-2024 End: 10-18-2024 Refill Marcelina Rangel MD, PhD Work Phone: Hematology/Oncology Comment on above: Refill Request Start: 10-15-2024 End: 10-15-2024 Clinisync Result Encounter Generic External Data Provider NOMS External Department Unsolicited Start: 10-15-2024 End: 10-15-2024 Clinisync Result Encounter Generic External Data Provider NOMS External Department Unsolicited Start: 10-15-2024 End: 10-15-2024 Patient encounter procedure Marcelina Rangel MD, PhD Work Phone: Hematology/Oncology Start: 10-15-2024 End: 10-15-2024 ambulatory Lab [facility] [address] Work Phone: Hematology/Oncology Comment on above: 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); 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) Start: 10-14-2024 End: 10-14-2024 ambulatory MANISHA Mei [facility] Facility:[facility] Start: 10-14-2024 End: 10-14-2024 Patient encounter procedure Shana Ferguson APRN.DATA REVIEW SPECIALIST Work Phone: Palliative Medicine Comment on above: Palliative care by s pecialist (Primary Dx); 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HCC); Chronic cough; Neoplasm related pain; Anxiety about health; On tube feeding diet; Nausea Start: 10-07-2024 End: 10-07-2024 Clinisync Result Encounter Generic External Data Provider NOMS External Department Unsolicited Start: 10-07-2024 End: 10-07-2024 Clinisync Result Encounter Generic External Data Provider NOMS External Department Unsolicited Start: 10-07-2024 End: 10-11-2024 Telephone encounter Marcelina Rangel MD, PhD Work Phone: Hematology/Oncology Comment on above: 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) Start: 10-06-2024 End: 10-06-2024 Clinisync Result Encounter Generic External Data Provider NOMS External Department Unsolicited Start: 10-06-2024 End: 10-06-2024 Clinisync Result Encounter Generic External Data Provider NOMS External Department Unsolicited Start: 10-05-2024 End: 10-06-2024 Clinisync Result Encounter Generic External Data Provider [facility]S External Department Unsolicited Start: 10-05-2024 End: 10-06-2024 Clinisync Result Encounter Generic External Data Provider NOMS External Department Unsolicited Start: 10-05-2024 End: 10-14-2024 Patient encounter procedure Kobe Medellin MD Work Phone: [facility] Start: 10-05-2024 End: 10-14-2024 Radiation Oncology Note Kobe Medellin MD Work Phone: [facility] Comment on above: Completion Note Start: 10-05-2024 End: 10-05-2024 ambulatory KOBE PENDYALA Facility:[facility] Start: 10-04-2024 End: 10-09-2024 Clinisync Result Encounter Generic External Data Provider NOMS External Department Unsolicited Start: 10-04-2024 End: 10-09-2024 Clinisync Result Encounter Generic External Data Provider NOMS External Department Unsolicited Start: 10-04-2024 End: 10-04-2024 Evaluation and management of inpatient [facility] Facility:[facility] Start: 10-03-2024 End: 10-03-2024 Evaluation and management of inpatient [facility] Facility:[facility] Start: 10-02-2024 End: 10-02-2024 Evaluation and management of inpatient KOBE SHANTIA Facility:[facility] Start: 10-01-2024 End: 10-01-2024 Evaluation and management of inpatient Jaclyn Aranda MD Work Phone: Radiation Oncology Comment on above: 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) Start: 09-30-2024 End: 09-30-2024 Evaluation and management of inpatient KOBE PENDYALA Facility:[facility] Start: 09-27-2024 End: 09-29-2024 Clinisync Result Encounter Generic External Data Provider NOMS External Department Unsolicited Start: 09-27-2024 End: 09-29-2024 Clinisync Result Encounter Generic External Data Provider [facility] External Department Unsolicited Start: 09-27-2024 End: 10-02-2024 Patient encounter procedure Yumi Chacon DO Work Phone: Radiation Oncology Start: 09-27-2024 End: 10-02-2024 Radiation Oncology Note Yumi Chacon DO Work Phone: Radiation Oncology Comment on above: Simulation Note Treatment Planning Start: 09-27-2024 End: 09-27-2024 Evaluation and management of inpatient MANISHA MCKNIGHT Facility:[facility] Start: 09-26-2024 End: 10-01-2024 Clinisync Result Encounter Generic External Data Provider [facility] External Department Unsolicited Start: 09-26-2024 End: 10-01-2024 Clinisync Result Encounter Generic External Data Provider [facility]S External Department Unsolicited Start: 09-24-2024 End: 09-24-2024 Subsequent hospital visit by physician Kendal Lambert Work Phone: Cardiovascular Testing Comment on above: 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] Start: 09-24-2024 End: 10-11-2024 Evaluation and management of inpatient BELINDA MACKEY Facility:[facility] Start: 09-24-2024 End: 09-24-2024 Telephone encounter Marcelina Rangel MD, PhD Work Phone: Hematology/Oncology Comment on above: 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 (Hospital transfer ) Start: 09-23-2024 End: 09-25-2024 Clinisync Result Encounter Generic External Data Provider NOMS External Department Unsolicited Start: 09-23-2024 End: 09-25-2024 Clinisync Result Encounter Generic External Data Provider NOMS External Department Unsolicited Start: 09-23-2024 End: 09-23-2024 Telephone encounter Marcelina Rangel MD, PhD Work Phone: Hematology/Oncology Comment on above: 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 (ER Visit) Start: 09-22-2024 End: 09-22-2024 ambulatory Ilana Rich RN [employer] Comment on above: palliative medicine info Start: 09-22-2024 End: 09-22-2024 Clinisync Result Encounter Generic External Data Provider NOMS External Department Unsolicited Start: 09-22-2024 End: 09-22-2024 Clinisync Result Encounter Generic External Data Provider [facility]S External Department Unsolicited Start: 09-22-2024 End: 09-22-2024 E-mail encounter from caregiver 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 L 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 [employer] Start: 09-20-2024 End: 09-20-2024 ambulatory KOBE MEDELLIN Facility:[facility] Start: 09-20-2024 End: 09-20-2024 Patient encounter procedure Kobe Medellin MD Work Phone: Radiation Oncology Comment on above: T-cell acute lymphob lastic leukemia (ALL) (HCC) Start: 09-20-2024 End: 09-20-2024 Telephone encounter Shana Ferguson APRN.DATA REVIEW SPECIALIST Work Phone: [facility] Home Delivery Comment on above: Medication Problem ( pantoprazole oral liquid 2 mg/mL (CPD)) Start: 09-17-2024 End: 09-17-2024 ambulatory MARCELINA RANGEL Facility:[facility] Start: 09-17-2024 End: 09-17-2024 Patient encounter procedure Shana Ferguson SAIL REPAIR PERSON.DATA REVIEW SPECIALIST Work Phone: Palliative Medicine Comment on above: Palliative care by s pecialist (Primary Dx); 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HCC); Neoplasm related pain; On tube feeding diet; Anxiety about health Start: 09-17-2024 End: 09-17-2024 Refill Marcelina Rangel MD, PhD Work Phone: Hematology/Oncology Comment on above: Medication Problem ( Patient did receive medications from [facility] on the September 15.) Start: 09-17-2024 End: 09-17-2024 Telephone encounter Marcelina Rangel MD, PhD Work Phone: Hematology/Oncology Comment on above: 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 (Refills / MRI ) Refill Request Start: 09-15-2024 End: 09-15-2024 Clinisync Result Encounter Generic External Data Provider NOMS External Department Unsolicited Start: 09-15-2024 End: 09-15-2024 Clinisync Result Encounter Generic External Data Provider NOMS External Department Unsolicited Start: 09-13-2024 End: 09-14-2024 Refill Marcelina Rangel MD, PhD Work Phone: Hematology/Oncology Comment on above: Refill Request Start: 09-09-2024 End: 09-09-2024 Orders Only Marcelina Rangel MD, PhD Work Phone: Hematology/Oncology Start: 09-07-2024 End: 09-07-2024 Clinisync Result Encounter Generic External Data Provider NOMS External Department Unsolicited Start: 09-07-2024 End: 09-07-2024 Clinisync Result Encounter Generic External Data Provider NOMS External Department Unsolicited Start: 09-07-2024 End: 09-07-2024 Telephone encounter Marcelina Rangel MD, PhD Work Phone: [employer] Comment on above: [id number]; Initial Consu lt Start: 09-06-2024 End: 09-06-2024 Clinisync Result Encounter Generic External Data Provider N[facility]S External Department Unsolicited Start: 09-06-2024 End: 09-06-2024 Clinisync Result Encounter Generic External Data Provider NOMS External Department Unsolicited Start: 09-06-2024 End: 09-06-2024 Orders Only Marcelina Rangel MD, PhD Work Phone: Hematology/Oncology Comment on above: TLL (T-cell lymphobl astic lymphoma) (HCC) [C83.50] Lymphoblastic lympho ma of multiple sites (HCC) (Primary Dx) Start: 09-01-2024 End: 09-01-2024 Clinisync Result Encounter Generic External Data Provider NOMS External Department Unsolicited Start: 09-01-2024 End: 09-01-2024 Clinisync Result Encounter Generic External Data Provider N[facility]S External Department Unsolicited Start: 08-30-2024 End: 09-09-2024 Refill Marcelina Rangel MD, PhD Work Phone: Hematology/Oncology Comment on above: Refill Request Start: 08-27-2024 End: 08-27-2024 Telephone encounter Marcelina Rangel MD, PhD Work Phone: Hematology/Oncology Comment on above: 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 (08/23 Office Note) Start: 08-27-2024 End: 08-27-2024 ambulatory MARCELINA RANGEL Facility:[facility] Start: 08-27-2024 End: 08-27-2024 Subsequent hospital visit by physician [facility] Comment on above: 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] Start: 08-25-2024 End: 08-25-2024 Telephone encounter Marcelina Rangel MD, PhD Work Phone: Hematology/Oncology Comment on above: 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 (Treatment plan request) Start: 08-24-2024 End: 08-24-2024 Clinisync Result Encounter Generic External Data Provider NOMS External Department Unsolicited Start: 08-24-2024 End: 08-24-2024 Clinisync Result Encounter Generic External Data Provider NOMS External Department Unsolicited Start: 08-24-2024 End: 08-25-2024 Refill Marcelina Rangel MD, PhD Work Phone: Hematology/Oncology Comment on above: Refill Request Nm Pet Request Start: 08-23-2024 End: 08-23-2024 ambulatory Marcelina Rangel MD, PhD Work Phone: Hematology/Oncology Comment on above: Lymphoblastic lympho ma of multiple sites (HCC) (Primary Dx) Start: 08-23-2024 End: 08-23-2024 Patient encounter procedure Marcelina Rangel MD, PhD Work Phone: Hematology/Oncology Start: 08-20-2024 End: 08-24-2024 Refill Marcelina Rangel MD, PhD Work Phone: Hematology/Oncology Comment on above: Refill Request Start: 08-18-2024 End: 08-18-2024 Clinisync Result Encounter Generic External Data Provider NOMS External Department Unsolicited Start: 08-18-2024 End: 08-18-2024 Clinisync Result Encounter Generic External Data Provider NOMS External Department Unsolicited Start: 08-18-2024 End: 08-18-2024 Refill Marcelina Rangel MD, PhD Work Phone: Hematology/Oncology Comment on above: Refill Request Bone Marrow Biopsy N ext Day Call Start: 08-17-2024 End: 08-17-2024 Clinisync Result Encounter Generic External Data Provider NOMS External Department Unsolicited Start: 08-17-2024 End: 08-17-2024 Clinisync Result Encounter Generic External Data Provider NOMS External Department Unsolicited Start: 08-17-2024 End: 08-17-2024 ambulatory Lab [facility] [address] Work Phone: Hematology/Oncology Comment on above: TLL (T-cell lymphobl astic lymphoma) (HCC) Start: 08-17-2024 End: 08-17-2024 Patient encounter procedure [facility] Room 1 Work Phone: Hematology/Oncology Start: 08-17-2024 End: 08-17-2024 ambulatory Pulm Main Respiratory Therapy (Pulm Main Professor Of Fine Art) Work Phone: Hematology/Oncology Comment on above: TLL (T-cell lymphobl astic lymphoma) ([facility]) pentamidine treatmen t Start: 08-16-2024 End: 08-16-2024 ambulatory Laly Buchanan APRN.CNP Work Phone: Endocrinology Comment on above: Type 2 diabetes gonzález itus without complication, with long-term current use of insulin (HCC) (Primary Dx); Type 2 diabetes mellitus with hyperglycemia, with long-term current use of insulin (HCC) Refill Request Start: 08-16-2024 End: 08-16-2024 Telemedicine consultation with patient Laly Buchanan APRN.CNP Work Phone: Endocrinology Start: 08-11-2024 End: 08-11-2024 Clinisync Result Encounter Generic External Data Provider NOMS External Department Unsolicited Start: 08-11-2024 End: 08-11-2024 Clinisync Result Encounter Generic External Data Provider NOMS External Department Unsolicited Start: 08-09-2024 End: 08-09-2024 Office outpatient visit 15 minutes Manisha Mcknight MD Work Phone: [facility] Comment on above: Primary hypertension (CMS/HCC) Start: 08-09-2024 End: 08-12-2024 ambulatory MANISHA MCKNIGHT Not Available Comment on above: Refill Request Start: 08-09-2024 End: 08-09-2024 Bamboo flowsheet Manisha Mcknight MD Work Phone: [facility] Start: 08-09-2024 End: 08-09-2024 Bamboo flowsheet Manisha Mcknight MD Work Phone: [facility] Start: 08-06-2024 End: 08-06-2024 Clinisync Result Encounter Generic External Data Provider NOMS External Department Unsolicited Start: 08-06-2024 End: 08-06-2024 Clinisync Result Encounter Generic External Data Provider NOMS External Department Unsolicited Start: 08-06-2024 End: 08-07-[address] [place] [address] 2 Work Phone: Hematology/Oncology Comment on above: 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); TLL (T-cell lymphoblastic lymphoma) (HCC) Start: 08-06-2024 ambulatory BERTIN LAMA Fa cility:[facility] Start: 08-06-2024 End: 08-06-2024 Subsequent hospital visit by physician Bertin Lama SAIL REPAIR PERSON.DATA REVIEW SPECIALIST Work Phone: [id number] Comment on above: TLL (T-cell lymphobl astic lymphoma) (HCC) [C83.50] Start: 08-06-2024 End: 08-06-2024 ambulatory Marcelina Rangel MD, PhD Work Phone: Hematology/Oncology Comment on above: Acute lymphoblastic leukemia (ALL) not having achieved remission (HCC) (Primary Dx) Start: 08-06-2024 End: 08-06-2024 Patient encounter procedure Penelope Torres [facility] Hematology/Oncology Comment on above: 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) Start: 08-05-2024 End: 08-05-2024 Orders Only Marcelina Rangel MD, PhD Work Phone: Hematology/Oncology Start: 08-04-2024 End: 08-04-2024 Clinisync Result Encounter Generic External Data Provider NOMS External Department Unsolicited Start: 08-04-2024 End: 08-04-2024 Clinisync Result Encounter Generic External Data Provider NOMS External Department Unsolicited Start: 07-28-2024 End: 07-28-2024 Clinisync Result Encounter Generic External Data Provider NOMS External Department Unsolicited Start: 07-28-2024 End: 07-28-2024 Clinisync Result Encounter Generic External Data Provider NOMS External Department Unsolicited Start: 07-23-2024 End: 07-23-2024 Susie Buchanan APRN.CNP Work Phone: Endocrinology Start: 07-21-2024 End: 07-21-2024 Clinisync Result Encounter Generic External Data Provider NOMS External Department Unsolicited Start: 07-21-2024 End: 07-21-2024 Clinisync Result Encounter Generic External Data Provider NOMS External Department Unsolicited Start: 07-16-2024 End: 07-16-2024 Clinisync Result Encounter Generic External Data Provider NOMS External Department Unsolicited Start: 07-16-2024 End: 07-16-2024 Clinisync Result Encounter Generic External Data Provider NOMS External Department Unsolicited Start: 07-16-2024 End: 07-17-2024 ambulatory [employer] Hematology/Oncology Comment on above: TLL (T-cell lymphobl astic lymphoma) (HCC) 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); TLL (T-cell lymphoblastic lymphoma) (HCC) 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) Start: 07-16-2024 End: 07-16-2024 Patient encounter procedure Marcelina Rangel MD, PhD Work Phone: Hematology/Oncology Comment on above: 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) Start: 07-15-2024 End: 07-15-2024 Clinisync Result Encounter Generic External Data Provider NOMS External Department Unsolicited Start: 07-15-2024 End: 07-15-2024 Clinisync Result Encounter Generic External Data Provider NOMS External Department Unsolicited Start: 07-15-2024 End: 07-16-2024 Telephone encounter Marcelina Rangel MD, PhD Work Phone: Hematology/Oncology Comment on above: 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 (Gabapentin & Zofran) Refill Request Start: 07-13-2024 End: 07-13-2024 ambulatory Laly Buchanan SAIL REPAIR PERSON.DATA REVIEW SPECIALIST Work Phone: Endocrinology Comment on above: Controlled steroid-i nduced diabetes mellitus (HCC) (Primary Dx) Start: 07-13-2024 End: 07-13-2024 Telemedicine consultation with patient Laly Garcia Buchanan EUGENE.DATA REVIEW SPECIALIST Work Phone: Endocrinology Start: 07-09-2024 End: 07-09-2024 Office outpatient visit 15 minutes Manisha Mcknight MD Work Phone: [facility] Comment on above: Primary hypertension (CMS/HCC) (Primary Dx) Start: 07-09-2024 End: 07-09-2024 Bamboo flowsheet Manisha Mcknight MD Work Phone: [facility] Start: 07-09-2024 End: 07-09-2024 Bamboo flowsheet Manisha Mcknight MD Work Phone: [facility] Start: 07-09-2024 End: 07-09-2024 Refill Marcelina Rangel MD, PhD Work Phone: Hematology/Oncology Comment on above: Refill Request Start: 07-08-2024 End: 07-08-2024 Clinisync Result Encounter Generic External Data Provider NOMS External Department Unsolicited Start: 07-08-2024 End: 07-08-2024 Clinisync Result Encounter Generic External Data Provider NOMS External Department Unsolicited Start: 07-07-2024 End: 07-07-2024 ambulatory Laly Radha Buchanan SAIL REPAIR PERSON.DATA REVIEW SPECIALIST Work Phone: Endocrinology Comment on above: Glucose been high Start: 07-05-2024 End: 07-05-2024 Telephone encounter Marcelina Rangel MD, PhD Work Phone: Hematology/Oncology Comment on above: 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 (Plan Of Care) Start: 07-01-2024 End: 07-01-2024 ambulatory GUILLE DIXON Facility:[facility] Start: 07-01-2024 End: 07-01-2024 Patient encounter procedure Guille Dixon MD Work Phone: Gastroenterology Comment on above: 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); Hepatitis Start: 06-30-2024 End: 06-30-2024 Clinisync Result Encounter Generic External Data Provider NOMS External Department Unsolicited Start: 06-30-2024 End: 06-30-2024 Clinisync Result Encounter Generic External Data Provider NOMS External Department Unsolicited Start: 06-25-2024 End: 06-25-2024 Clinisync Result Encounter Generic External Data Provider NOMS External Department Unsolicited Start: 06-25-2024 End: 06-25-2024 Clinisync Result Encounter Generic External Data Provider NOMS External Department Unsolicited Start: 06-25-2024 End: 06-25-2024 Office outpatient visit 25 minutes Braulio Jama PA-C Work Phone: Hematology/Oncology Comment on above: 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); On tube feeding diet; Thrombus; Immunocompromised (HCC); Transaminitis; Chemotherapy-induced peripheral neuropathy (HCC); Encounter for antineoplastic chemotherapy Start: 06-25-2024 End: 06-26-2024 Orders Only Marcelina Rangel MD, PhD Work Phone: Hematology/Oncology Comment on above: 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) 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) Start: 06-24-2024 End: 06-24-2024 Telephone encounter Marcelina Rangel MD, PhD Work Phone: Hematology/Oncology Comment on above: 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 (Diagnosis Code) 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 (Lovenox Rx) Start: 06-23-2024 End: 06-23-2024 Clinisync Result Encounter Generic External Data Provider NOMS External Department Unsolicited Start: 06-23-2024 End: 06-23-2024 Clinisync Result Encounter Generic External Data Provider [facility]OMS External Department Unsolicited Start: 06-21-2024 End: 06-21-2024 Telephone encounter Marcelina Rangel MD, PhD Work Phone: Hematology/Oncology Comment on above: 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 ([place] Patient) Refill Request Start: 06-18-2024 End: 06-18-2024 ambulatory Pulm Main Respiratory Therapy (Pulm Main Professor Of Fine Art) Work Phone: Pulmonary Medicine Comment on above: Pentamidine Aerosol Treatment Start: 06-18-2024 End: 06-18-2024 Patient encounter procedure Olga Ureña MD Work Phone: Vascular Medicine Comment on above: Anticoagulation delroy gement encounter (Primary Dx); TLL (T-cell lymphoblastic lymphoma) (HCC); Pulmonary embolism, unspecified chronicity, unspecified pulmonary embolism type, unspecified whether acute cor pulmonale present (HCC); Personal history of DVT (deep vein thrombosis) Start: 06-17-2024 End: 06-17-2024 Telephone encounter Marcelina Rangel MD, PhD Work Phone: Hematology/Oncology Comment on above: Refill Request (Love nox) Refill Request Start: 06-16-2024 End: 06-16-2024 Telephone encounter Marcelina Rangel MD, PhD Work Phone: Hematology/Oncology Comment on above: 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 (Pantoprazole-Can't Compound) Refill Request Start: 06-15-2024 End: 06-15-2024 Clinisync Result Encounter Generic External Data Provider [facility]OMS External Department Unsolicited Start: 06-15-2024 End: 06-15-2024 Clinisync Result Encounter Generic External Data Provider [facility]S External Department Unsolicited Start: 06-15-2024 End: 06-15-2024 Refill Marcelina Rangel MD, PhD Work Phone: Hematology/Oncology Comment on above: Refill Request Start: 06-15-2024 End: 06-23-2024 Refill Marcelina Rangel MD, PhD Work Phone: Hematology/Oncology Comment on above: Med Change Request Start: 06-11-2024 End: 06-11-2024 ambulatory Reema Altamirano Work Phone: [facility] Start: 06-11-2024 End: 06-11-2024 Telephone encounter Reema Altamirano Work Phone: [facility] Comment on above: Results Start: 06-10-2024 End: 06-10-2024 Telephone encounter Marcelina Rangel MD, PhD Work Phone: Hematology/Oncology Comment on above: 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 (Breathing Treatment ) Start: 06-09-2024 End: 06-09-2024 Clinisync Result Encounter Generic External Data Provider [facility]S External Department Unsolicited Start: 06-09-2024 End: 06-09-2024 Clinisync Result Encounter Generic External Data Provider NOMS External Department Unsolicited Start: 06-08-2024 ambulatory [facility] Facility[facility] Start: 06-08-2024 End: 06-08-2024 Subsequent hospital visit by physician [employer] [place] [id number] Comment on above: TLL (T-cell lymphobl astic lymphoma) (HCC) [C83.50] Start: 06-04-2024 End: 06-04-2024 Clinisync Result Encounter Generic External Data Provider NOMS External Department Unsolicited Start: 06-04-2024 End: 06-04-2024 Clinisync Result Encounter Generic External Data Provider [facility]OMS External Department Unsolicited Start: 06-04-2024 End: 06-05-2024 ambulatory Chair [address] [facility] 2 Work Phone: Hematology/Oncology Comment on above: 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); TLL (T-cell lymphoblastic lymphoma) (HCC) Start: 06-04-2024 End: 06-04-2024 ambulatory Lab [facility] [address] Work Phone: Hematology/Oncology Comment on above: 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) Start: 06-03-2024 End: 06-03-2024 Orders Only Marcelina Rangel MD, PhD Work Phone: Hematology/Oncology Start: 06-01-2024 End: 06-01-2024 Orders Only Marcelina Rangel MD, PhD Work Phone: Hematology/Oncology Start: 05-28-2024 End: 05-28-2024 Clinisync Result Encounter Generic External Data Provider NOMS External Department Unsolicited Start: 05-28-2024 End: 05-28-2024 Clinisync Result Encounter Generic External Data Provider [facility] External Department Unsolicited Start: 05-28-2024 End: 05-28-2024 Refill Marcelina Rangel MD, PhD Work Phone: Hematology/Oncology Comment on above: Refill Request TLL (T-cell lymphobl astic lymphoma) (HCC) TLL (T-cell lymphobl astic lymphoma) (HCC) [C83.50] 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); Transaminitis; Thrombus Start: 05-26-2024 End: 05-29-2024 Clinisync Result Encounter Generic External Data Provider [facility] External Department Unsolicited Start: 05-26-2024 End: 05-29-2024 Clinisync Result Encounter Generic External Data Provider [facility] External Department Unsolicited Start: 05-20-2024 Telephone encounter Darrius jacob MD Work Phone: [facility] Start: 05-20-2024 End: 05-20-2024 ambulatory Laly Buchanan APRN.DATA REVIEW SPECIALIST Work Phone: Endocrinology Comment on above: Controlled steroid-i nduced diabetes mellitus (HCC) (Primary Dx) Start: 05-20-2024 End: 05-20-2024 Telemedicine consultation with patient Laly Buchanan LISA Work Phone: Endocrinology Start: 05-19-2024 End: 05-19-2024 Patient encounter procedure Mague Hutchinsondiane GONZALEZ Work Phone: Hematology/Oncology Start: 05-19-2024 End: 05-20-[address] [place] [address] Work Phone: Hematology/Oncology Comment on above: 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) 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); Immunocompromised (HCC); Transaminitis; Bone pain; Personal history of DVT (deep vein thrombosis); History of tracheoesophageal fistula Start: 05-17-2024 End: 05-17-2024 ambulatory [facility] Start: 05-17-2024 Patient encounter procedure [facility] Comment on above: SPP Injectab Oncolog y/hematology-Treatment Referral (Neupogen 300mcg/0.5ml) Start: 05-17-2024 Telephone encounter Wilda nichols APRN.CNP Work Phone: Endocrinology & [facility] [place] Comment on above: Appointment Start: 05-16-2024 Refill Neel Ruggiero i, PA-C Work Phone: Hematology/Oncology Comment on above: Refill Request Start: 05-13-2024 Orders Only Viviana pantoja MD Work Phone: Hematology/Oncology Start: 05-12-2024 End: 05-12-2024 Evaluation and management of inpatient HAROON M HAMOUDA Facility:[facility] Start: 05-12-2024 End: 05-12-2024 Evaluation and management of inpatient HAROON M HAMOUDA Facility:[facility] Start: 05-12-2024 End: 05-12-2024 ambulatory MANISHA Mei GISSELLE Facility:[facility] Start: 04-30-2024 Telephone encounter Ly Pung RN Work Phone: Mammography Comment on above: Results Start: 04-22-2024 Orders Only Marcelina marrufo MD, PhD Work Phone: Hematology/Oncology Start: 04-20-2024 End: 04-20-2024 Evaluation and management of inpatient RIVAS CHACON Facility:[facility] Start: 04-19-2024 Evaluation and manag ement of inpatient RIVAS CHACON Facility:[facility] Start: 04-17-2024 End: 05-17-2024 Evaluation and management of inpatient DARBY [facility] Start: 04-14-2024 [facility] Start: 04-12-2024 Evaluation and manag ement of inpatient [facility] Start: 04-11-2024 Evaluation and manag ement of inpatient [facility] Start: 04-09-2024 Evaluation and manag ement of inpatient [facility] Start: 04-09-2024 Evaluation and manag ement of inpatient [facility] Start: 04-08-2024 Evaluation and manag ement of inpatient [facility] Start: 04-07-2024 Evaluation and manag ement of inpatient GENE [facility] Start: 04-07-2024 Evaluation and manag ement of inpatient [facility] Start: 04-07-2024 End: 04-07-[address] [facility] Start: 04-07-2024 End: 04-17-2024 Evaluation and management of inpatient GIA BEAN [facility] Start: 03-30-2024 End: 03-30-2024 Emergency department [facility] Start: 03-29-2024 End: 03-29-2024 Emergency department patient [facility] Start: 02-27-2024 End: 02-27-2024 ambulatory MANISHA MCKNIGHT Not Available Start: 02-18-2024 ambulatory MANISHA MCKNIGHT [facility] Start: 02-17-2024 End: 02-17-2024 [facility] Start: 02-17-2024 End: 02-17-2024 Office outpatient new 30 minutes Onesimo Mills MD Work Phone: [facility] Comment on above: Incisional hernia, w ithout obstruction or gangrene (Primary Dx) Start: 02-03-2024 End: 02-03-2024 ambulatory MANISHA MCKNIGHT Not Available Start: 01-28-2024 End: 01-28-2024 ambulatory MANISHA MCKNIGHT Not Available Start: 01-28-2024 End: 01-28-2024 ambulatory MANISHA MCKNIGHT Not Available Procedures Date Procedure Procedure Detail Performing Clinician Start: 12-24-2024 Blood count complete auto&auto difrntl wbc Marcelina Rangel MD, PhD Work Phone: Start: 12-07-2024 ALL CBC WITH AUTO DIFF Generic External Data Provider Start: 12-01-2024 ALL CBC WITH AUTO DIFF Generic External Data Provider Start: 11-24-2024 ALL CBC WITH AUTO DIFF Generic External Data Provider Start: 11-18-2024 Cardiac mri w/wo con trast & further seq Marcelina Rangel MD, PhD Work Phone: Start: 11-18-2024 MRI CARD MORPH FUNC WO/W IVCON Generic External Data Provider Start: 11-18-2024 MRI CARDIAC VELOCITY FLOW MAP Generic External Data Provider Start: 11-17-2024 ALL CBC WITH AUTO DIFF Generic External Data Provider Start: 11-09-2024 ALL CBC WITH AUTO DIFF Generic External Data Provider Start: 11-02-2024 ALL CBC WITH AUTO DIFF Generic External Data Provider Start: 10-27-2024 ALL CBC WITH AUTO DIFF Generic External Data Provider Start: 10-15-2024 [facility] CBC W AUTO DIFF BLD Generic External Data Provider Start: 10-15-2024 Blood count complete auto&auto difrntl wbc Marcelina Rangel MD, PhD Work Phone: Start: 10-07-2024 [facility] RESP PATH 12B PN L SPEC JANET+PROBE Generic External Data Provider Start: 10-06-2024 [facility] CRYPTOC AG SPEC QL LA Generic External Data Provider Start: 10-05-2024 [facility] BACTERIA UR CULT Ge neric External Data Provider Start: 10-04-2024 End: 10-04-2024 [facility] BACTERIA BLD CULT Generic External D luis Provider Start: 09-27-2024 [facility] BACTERIA UR CULT Ge neric External Data Provider Start: 09-26-2024 End: 09-26-2024 [facility] BACTERIA BLD CULT Generic External D luis Provider Start: 09-23-2024 BLOOD CULTURE 2 Generic External Data Provider Start: 09-23-2024 BLOOD CULTURE 1 Generic External Data Provider Start: 09-22-2024 ALL CBC WITH AUTO DIFF Generic External Data Provider Start: 09-15-2024 ALL CBC WITH AUTO DIFF Generic External Data Provider Start: 09-07-2024 ALL CBC WITH AUTO DIFF Generic External Data Provider Start: 09-06-2024 [facility] GLUCOSE CSF-MC[facility] Ge neric External Data Provider Start: 09-06-2024 [facility] PROT CSF-[facility] Gener ic External Data Provider Start: 09-06-2024 Cell count misc body fluids w/differential count Marcelina Rangel MD, PhD Work Phone: Start: 09-06-2024 CSF MANUAL DIFF Marcelina Rangel MD, PhD Work Phone: Start: 09-06-2024 CSF ROUT ANALYSIS Artemio to Juan Carlos MARIE, PhD Work Phone: Start: 09-06-2024 Glucose body fluid o ther than blood Marcelina Rangel MD, PhD Work Phone: Start: 09-01-2024 ALL CBC WITH AUTO DIFF Generic External Data Provider Start: 09-01-2024 [facility] CMP (CMP) (FOR [facility] USE) Generic External Data Provider Start: 08-27-2024 Gluc bld gluc mntr d ev cleared fda spec home use [facility] Provider Start: 08-24-2024 ALL CBC WITH AUTO DIFF Generic External Data Provider Start: 08-18-2024 ALL CBC WITH AUTO DIFF Generic External Data Provider Start: 08-18-2024 [facility] CMP (CMP) (FOR R [facility] USE) Generic External Data Provider Start: 08-18-2024 MHPT DIFFERENTIAL Gener ic External Data Provider Start: 08-17-2024 [facility] CBC W AUTO DIFF BLD Generic External Data Provider Start: 08-17-2024 Blood count complete auto&auto difrntl wbc Marcelina Rangel MD, PhD Work Phone: Start: 08-17-2024 Diagnostic bone estrella ow biopsies & aspirations Candi Vera SAIL REPAIR PERSON.DATA REVIEW SPECIALIST Work Phone: Start: 08-17-2024 ALL T-CELL MRD Generic External Data Provider Start: 08-17-2024 [facility] BONE MARROW [employer] SYSTEM OPERATOR MOSOME ANAL Generic External Data Provider Start: 08-17-2024 [facility] DNA EXTRACTION B ONE MARROW (BUFFY COAT) Generic External Data Provider Start: 08-17-2024 [facility] FLOW CYTOMETRY F OR LEUKEMIA/LYMPHOMA (FCLL) PERFORMABLE Generic External Data Provider Start: 08-17-2024 FLOW CYTOMETRY FOR LEUKEMIA/LYMPHOMA (FCLL) Marcelina Rangel MD, PhD Work Phone: Start: 08-17-2024 FLOW CYTOMETRY FOR LEUKEMIA/LYMPHOMA (FCLL) PERFORMABLE Marcelina Rangel MD, PhD Work Phone: Start: 08-17-2024 [facility] BONE MARROW ANALYSIS Generic External Data Provider Start: 08-11-2024 ALL CBC WITH AUTO DIFF Generic External Data Provider Start: 08-06-2024 [facility] CBC W AUTO DIFF BLD Generic External Data Provider Start: 08-06-2024 Blood count complete auto&auto difrntl wbc Marcelina Rangel MD, PhD Work Phone: Start: 08-04-2024 ALL CBC WITH AUTO DIFF Generic External Data Provider Start: 07-28-2024 ALL CBC WITH AUTO DIFF Generic External Data Provider Start: 07-21-2024 ALL CBC WITH AUTO DIFF Generic External Data Provider Start: 07-16-2024 [facility] CBC W AUTO DIFF BLD Generic External Data Provider Start: 07-16-2024 Blood count complete auto&auto difrntl wbc Marcelina Rangel MD, PhD Work Phone: Start: 07-15-2024 ALL CBC WITH AUTO DIFF Generic External Data Provider Start: 07-08-2024 [facility] CMP (CMP) (FOR [facility] USE) Generic External Data Provider Start: 06-30-2024 ALL CBC WITH AUTO DIFF Generic External Data Provider Start: 06-25-2024 [facility] CBC W AUTO DIFF BLD Generic External Data Provider Start: 06-25-2024 Blood count complete auto&auto difrntl wbc Marcelina Rangel MD, PhD Work Phone: Start: 06-23-2024 ALL CBC WITH AUTO DIFF Generic External Data Provider Start: 06-23-2024 [facility] CMP (CMP) (FOR [facility] USE) Generic External Data Provider Start: 06-15-2024 ALL CBC WITH AUTO DIFF Generic External Data Provider Start: 06-09-2024 ALL CBC WITH AUTO DIFF Generic External Data Provider Start: 06-04-2024 [facility] CBC W AUTO DIFF BLD Generic External Data Provider Start: 06-04-2024 Blood count complete auto&auto difrntl wbc Marcelina Rangel MD, PhD Work Phone: Start: 05-28-2024 Radiologic exam ches t 2 views Marcelina Rangel MD, PhD Work Phone: Start: 05-28-2024 Culture bacterial bl ood aerobic w/id isolates Marcelina Rangel MD, PhD Work Phone: Start: 05-28-2024 [facility] COMP METAB 2000 PNL SERPL Generic External Data Provider Start: 05-28-2024 [facility] MAGNESIUM SERPL-[facility] Generic External Data Provider Start: 05-28-2024 Blood count complete auto&auto difrntl wbc Marcelina Rangel MD, PhD Work Phone: Start: 05-26-2024 Bacteria identified in Urine by Culture Generic External Data Provider Start: 04-20-2024 Mammography Generic Pr ovider Start: 08-09-2022 Adult depression scr eening assessment Mennatallah Gene MD Work Phone: Plan of Treatment Date Care Activity Detail Author Start: 04-21-2025 Hepatitis B surface antibody level LDL Cholesterol [facility] Start: 04-20-2025 Screening for malignant neoplasm of breast Mammogram [facility] Start: 04-19-2025 Screening for malignant neoplasm of breast Mammogram Screening [facility] Start: 04-04-2025 Influenza vaccination Influenza Vaccine (#1) [facility] Comment on above: Postponed from 06/06/2024 (Patient Refus ed) Start: 03-16-2025 Glaucoma screening Dilated Retinal Exam [facility] Start: 02-23-2025 End: 02-23-2025 Patient encounter procedure 02/23/2025 11:30 AM EDT Office Visit Palliative Medicine [address] [place] [address] [place] [address] Shana Ferguson, SAIL REPAIR PERSON.DATA REVIEW SPECIALIST [address] [place] [address] 3 month follow up Palliative Medicine Comment on above: 3 month follow up Start: 02-22-2025 End: 02-22-2025 Follow-up encounter 02/22/2025 10:30 AM EDT [facility] Endocrinology [address] [id number] Laly Buchanan, SAIL REPAIR PERSON.DATA REVIEW SPECIALIST [address] [place] [address] 3 month follow up Endocrinology Comment on above: 3 month follow up Start: 02-16-2025 Adult BMI Screening Adult BMI Screening [facility] Start: 02-16-2025 Tobacco Screening Tobacco Screening [facility] Start: 01-21-2025 End: 01-21-2025 Admission to same day surgery center 01/21/2025 2:30 PM EDT - 01/21/2025 3:30 PM EDT Surgery Angio [address] [place] [address] PROGRAM RESEARCH SPECIALIST [address] [place] [address] ADMINISTRATION CHEMOTHERAPY INTO ADJUSTER LEADER W/ SPINAL PUNCTURE Angio Comment on above: ADMINISTRATION CHEMOTHERAPY INTO ADJUSTER LEADER W/ SPINAL PUNCTURE Start: 01-21-2025 End: 01-21-2025 Chemotx admn carbon paste mixer operator req spinal puncture ADMINISTRATION CHEMOTHERAPY INTO ADJUSTER LEADER W/ SPINAL PUNCTURE 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HCC) 01/21/2025 2:30 PM EDT ANGIO HB6 Start: 01-21-2025 Subsequent hospital visit by physician 01/21/2025 2:30 PM EDT Hospital Encounter Angio [address] [place] [address] PROGRAM RESEARCH SPECIALIST [address] [place] [address] 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] Angio Comment on above: T-cell acute lymphoblastic leukemia (ALL ) (HCC) [C91.00] Start: 01-21-2025 End: 01-21-2025 ambulatory Hematology/Oncology Comment on above: labs C83.50 Start: 01-20-2025 End: 01-20-2025 Admission to same day surgery center 01/20/2025 9:30 AM EDT - 01/20/2025 10:30 AM EDT Surgery Angio [address] [place] [address] PROGRAM RESEARCH SPECIALIST [address] [place] [address] ADMINISTRATION CHEMOTHERAPY INTO ADJUSTER LEADER W/ SPINAL PUNCTURE Angio Comment on above: ADMINISTRATION CHEMOTHERAPY INTO ADJUSTER LEADER W/ SPINAL PUNCTURE Start: 01-20-2025 End: 01-20-2025 Chemotx admn carbon paste mixer operator req spinal puncture ADMINISTRATION CHEMOTHERAPY INTO ADJUSTER LEADER W/ SPINAL PUNCTURE 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HCC) 01/20/2025 9:30 AM EDT [facility] Start: 01-20-2025 Subsequent hospital visit by physician 01/20/2025 9:30 AM EDT Hospital Encounter Angio [address] [place] [address] PROGRAM RESEARCH SPECIALIST [address] [place] [address] 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] Angio Comment on above: T-cell acute lymphoblastic leukemia (ALL ) (HCC) [C91.00] Start: 01-13-2025 End: 01-13-2025 Nutrition therapy 01/13/2025 10:00 AM EDT [facility] Nutrition Therapy [address] [place] [address] [place] [address] Radha Garcia, RD [address] [place] [address] virtual f/u Nutrition Therapy Comment on above: virtual f/u Start: 01-11-2025 End: 01-11-2025 Nutrition therapy 01/11/2025 10:00 AM EDT [facility] Nutrition Therapy [address] [place] [address] Radha Garcia, RD [address] [place] [address] virtual f/u Nutrition Therapy Comment on above: virtual f/u Start: 12-29-2024 End: 12-29-2024 Admission to same day surgery center 12/29/2024 2:30 PM EDT - 12/29/2024 3:30 PM EDT Surgery Angio [address] [place] [id number] PROGRAM RESEARCH SPECIALIST [address] [place] [address] ADMINISTRATION CHEMOTHERAPY INTO ADJUSTER LEADER W/ SPINAL PUNCTURE Angio Comment on above: ADMINISTRATION CHEMOTHERAPY INTO ADJUSTER LEADER W/ SPINAL PUNCTURE Start: 12-29-2024 End: 12-29-2024 Chemotx admn carbon paste mixer operator req spinal puncture ADMINISTRATION CHEMOTHERAPY INTO ADJUSTER LEADER W/ SPINAL PUNCTURE 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[facility]) 12/29/2024 2:30 PM EDT ANGIO HB6 Start: 12-29-2024 Subsequent hospital visit by physician 12/29/2024 2:30 PM EDT Hospital Encounter Angio [address] [place] [address] PROGRAM RESEARCH SPECIALIST [address] [place] [address] 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[facility]) [C91.00] Angio Comment on above: T-cell acute lymphoblastic leukemia (ALL ) ([facility]) [C91.00] Start: 12-24-2024 End: 12-24-2024 ambulatory Hematology/Oncology Comment on above: labs C83.50 Start: 12-23-2024 End: 12-23-2024 Chemotx admn carbon paste mixer operator req spinal puncture ADMINISTRATION CHEMOTHERAPY INTO ADJUSTER LEADER W/ SPINAL PUNCTURE 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[facility]) 12/23/2024 12:17 PM EDT ANGIO HB6 Start: 12-16-2024 End: 12-16-2024 Patient encounter procedure Vascular Medicine Comment on above: Lymphoblastic Lymphoma Start: 12-14-2024 End: 12-14-2024 Nutrition therapy 12/14/2024 10:00 AM EDT [facility] Nutrition Therapy [address] [place] [address] Radha Garcia, TANI [address] [place] [address] virtual f/u Nutrition Therapy Comment on above: virtual f/u Start: 11-29-2024 End: 11-29-2024 Nutrition therapy 11/29/2024 10:00 AM EST Education Nutrition Therapy [address] [place] [address] Radha Garcia, TANI [address] [place] [address] Nutri ref by [employer] Nutrition Therapy Comment on above: Nutri ref by [facility] DATA REVIEW SPECIALIST Estefani Anirudh Start: 11-25-2024 End: 11-25-2024 Chemotx admn carbon paste mixer operator req spinal puncture ADMINISTRATION CHEMOTHERAPY INTO ADJUSTER LEADER W/ SPINAL PUNCTURE 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[facility]) 11/25/2024 2:42 PM EST [facility] ANGIO HB6 Start: 11-25-2024 End: 11-25-2024 ambulatory 11/25/2024 2:30 PM EST Procedure Pulmonary Medicine [address] [address] Ther), Pulm Main Respiratory Therapy (Pulm Main Resp [address] [address] Pentamad[facility] Pulmonary Medicine Comment on above: Pentamadine Start: 11-25-2024 End: 11-25-2024 Admission to same day surgery center Angio Comment on above: ADMINISTRATION CHEMOTHERAPY INTO ADJUSTER LEADER W/ SPINAL PUNCTURE Start: 11-25-2024 End: 11-25-2024 Chemotx admn carbon paste mixer operator req spinal puncture ADMINISTRATION CHEMOTHERAPY INTO ADJUSTER LEADER W/ SPINAL PUNCTURE 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HCC) 11/25/2024 1:30 PM EST [facility] ANGIO HB6 Start: 11-25-2024 Subsequent hospital visit by physician Angio Comment on above: T-cell acute lymphoblastic leukemia (ALL ) ([facility]) [C91.00] Start: 11-24-2024 End: 11-24-2024 Patient encounter procedure 11/24/2024 10:00 AM EST Office Visit Palliative Medicine [address] [place] [address] [place] [address] Shana Ferguson, EUGENE.DATA REVIEW SPECIALIST [address] [place] [address] 6 WEEK FOLLOW UP Palliative Medicine Comment on above: 6 WEEK FOLLOW UP Start: 11-23-2024 End: 02-22-2025 Hemoglobin A1c in Blood HEMOGLOBIN A1C Lab Routine Type 2 diabetes mellitus with hyperglycemia, with long-term current use of insulin ([facility]) Expected: 11/23/2024, Expires: 02/22/2025 [facility] Work Phone: Comment on above: Expected: 11/23/2024, Expires: Start: 11-23-2024 End: 02-22-2025 Microalbumin/Creatinine [Mass Ratio] in Urine ALBUMIN/CREATININE RATIO, URINE Lab Routine Type 2 diabetes mellitus with hyperglycemia, with long-term current use of insulin ([facility]) Expected: 11/23/2024, Expires: 02/22/2025 [facility] Comment on above: Expected: 11/23/2024, Expires: Start: 11-23-2024 End: 11-23-2024 Follow-up encounter Endocrinology Comment on above: 3 month follow up Start: 11-16-2024 End: 11-16-2024 Patient encounter procedure 11/16/2024 12:00 PM EST Office Visit Radiation Oncology [address] [place] [address] Kobe Medellin MD [address] [place] [address] follow up Radiation Oncology Comment on above: follow up Start: 11-12-2024 End: 11-12-2024 ambulatory 11/12/2024 10:30 AM EST [facility] Hematology/Oncology [address] [place] [address] Marcelina Rangel [place], PhD [address] [place] [id number] Added per nurse Hematology/Oncology Comment on above: Added per nurse Start: 11-08-2024 End: 11-08-2024 Admission to same day surgery center 11/08/2024 11:30 AM EST - 11/08/2024 12:30 PM EST Surgery Angio [address] [place] [address] PROGRAM RESEARCH SPECIALIST [address] [place] [address] ADMINISTRATION CHEMOTHERAPY INTO ADJUSTER LEADER W/ SPINAL PUNCTURE Angio Comment on above: ADMINISTRATION CHEMOTHERAPY INTO ADJUSTER LEADER W/ SPINAL PUNCTURE Start: 11-08-2024 End: 11-08-2024 Chemotx admn carbon paste mixer operator req spinal puncture ADMINISTRATION CHEMOTHERAPY INTO ADJUSTER LEADER W/ SPINAL PUNCTURE TLL (T-cell lymphoblastic lymphoma) (HCC) 11/08/2024 11:30 AM EST [facility] Start: 11-08-2024 Subsequent hospital visit by physician 11/08/2024 11:30 AM EST Hospital Encounter Angio [address] [place] [address] PROGRAM RESEARCH SPECIALIST [address] [place] [address] TLL (T-cell lymphoblastic lymphoma) (HCC) [C83.50] Angio Comment on above: TLL (T-cell lymphoblastic lymphoma) (HCC ) [C83.50] Start: 11-02-2024 End: 11-02-2024 Patient encounter procedure 11/02/2024 10:00 AM EST Office Visit Radiation Oncology [address] [place] [id number] Kobe Medellin MD [address] [place] [address] follow up Radiation Oncology Comment on above: follow up Start: 10-28-2024 End: 10-28-2024 Patient encounter procedure 10/28/2024 1:00 PM EST Appointment Radiology Pet CT [address] [place] [address] [place] [address] 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] Radiology Pet CT Comment on above: T-cell acute lymphoblastic leukemia (ALL ) (HCC) [C91.00] Start: 10-27-2024 End: 10-27-2024 Patient encounter procedure Radiation Oncology Comment on above: [facility] BF Start: 2024 End: 2024 Patient encounter procedure Radiation Oncology Comment on above: [facility]ST[facility] BF Start: 10-25-2024 End: 10-25-2024 Patient encounter procedure Radiation Oncology Comment on above: MED[facility]ST[facility] BF Start: 10-22-2024 Hemoglobin A1c measurement HbA1C [facility] Start: 10-22-2024 End: 10-22-2024 Patient encounter procedure Radiation Oncology Comment on above: MEDIAST[facility] BF TB1 Start: 10-22-2024 End: 10-22-2024 ambulatory 10/22/2024 9:30 AM [facility] Hematology/Oncology [address] [place] [address] Marcelina [place] [address] [place] [address] Added Per nurse Hematology/Oncology Comment on above: Added Per nurse Start: 10-21-2024 End: 10-21-2024 Patient encounter procedure Radiation Oncology Comment on above: [facility]ST[facility] BF Start: 10-20-2024 End: 10-20-2024 Patient encounter procedure Radiation Oncology Comment on above: MEDIASTINUM BF Start: 10-19-2024 End: 10-19-2024 Patient encounter procedure Radiation Oncology Comment on above: MEDIASTINUM BF Start: 10-18-2024 End: 10-18-2024 Patient encounter procedure Radiation Oncology Comment on above: MEDIAST[facility]UM BF Start: 10-15-2024 End: 01-14-2025 CBC W Auto Differential panel - Blood COMPLETE BLOOD COUNT AND DIFFERENTIAL Lab Routine TLL (T-cell lymphoblastic lymphoma) (HCC) Expected: 10/15/2024, Expires: 01/14/2025 [facility] Work Phone: Comment on above: Expected: 10/15/2024, Expires: Start: 10-15-2024 End: 01-14-2025 Comprehensive metabolic 2000 panel - Serum or Plasma COMPREHENSIVE METABOLIC PANEL Lab Routine TLL (T-cell lymphoblastic lymphoma) ([facility]) Expected: 10/15/2024, Expires: 01/14/2025 [facility] Comment on above: Expected: 10/15/2024, Expires: Start: 10-15-2024 End: 10-15-2024 Patient encounter procedure Radiation Oncology Comment on above: MEDIASTINUM BF TB1 Start: 10-15-2024 End: 10-15-2024 ambulatory Main [place] [address] sonny Bañuelos Comment on above: LABS HOSP DC Start: 10-14-2024 End: 10-14-2024 Patient encounter procedure Palliative Medicine Comment on above: 4 week follow up [facility] Start: 10-13-2024 End: 10-13-2024 Patient encounter procedure 10/13/2024 2:20 PM EST Appointment Radiation Oncology [address] [place] [address] [facility] BF Radiation Oncology Comment on above: MEDIAST[facility]UM BF Start: 10-12-2024 End: 10-12-2024 Patient encounter procedure 10/12/2024 4:30 PM EST Appointment Radiation Oncology [id number] [place] [place] [id number] MEDIASTINUM BF Radiation Oncology Comment on above: MEDIASTINUM BF Start: 10-11-2024 End: 10-11-2024 Patient encounter procedure Radiation Oncology Comment on above: MEDIASTINUM BF Start: 10-08-2024 End: 10-08-2024 Patient encounter procedure Radiation Oncology Comment on above: T-cell acute lymphoblastic leukemia (ALL ) ([facility]) [C91.00] MEDIASTINUM BF TB1 Start: 10-07-2024 End: 10-07-2024 Patient encounter procedure Radiation Oncology Comment on above: MEDIASTINUM TIME OK BF MEDIASTINUM TIME OK/ SCHED BF G111-19 MEDIASTINUM BF Start: 10-07-2024 End: 10-07-2024 Admission to same day surgery center 10/07/2024 11:30 AM EST - 10/07/2024 12:30 PM EST Surgery Angio [address] [place] [address] PROGRAM RESEARCH SPECIALIST [address] [place] [address] ADMINISTRATION CHEMOTHERAPY INTO ADJUSTER LEADER W/ SPINAL PUNCTURE Angio Comment on above: ADMINISTRATION CHEMOTHERAPY INTO ADJUSTER LEADER W/ SPINAL PUNCTURE Start: 10-07-2024 End: 10-07-2024 Chemotx admn carbon paste mixer operator req spinal puncture ADMINISTRATION CHEMOTHERAPY INTO ADJUSTER LEADER W/ SPINAL PUNCTURE TLL (T-cell lymphoblastic lymphoma) (HCC) 10/07/2024 11:30 AM EST [facility] Start: 10-07-2024 Subsequent hospital visit by physician 10/07/2024 11:30 AM EST Hospital Encounter Angio [address] [place] [address] PROGRAM RESEARCH SPECIALIST [address] [place] [address] TLL (T-cell lymphoblastic lymphoma) ([facility]) [C83.50] Angio Comment on above: TLL (T-cell lymphoblastic lymphoma) (HCC ) [C83.50] Start: 10-05-2024 End: 10-05-2024 Patient encounter procedure Radiation Oncology Comment on above: G111-19 MEDIASTINUM BF G111-19 MEDIASTINUM CM Start: 10-04-2024 End: 10-04-2024 Patient encounter procedure Radiation Oncology Comment on above: G111-19 MEDIASTINUM BF G111-19 MEDIASTINUM BF *tb1 pt Start: 10-02-2024 End: 10-02-2024 Patient encounter procedure 10/02/2024 9:20 AM EST Appointment Radiation Oncology [address] [place] [address] [place] [address] [place] [address] G111-19 MEDIASTINUM CM Radiation Oncology Comment on above: G111-19 MEDIASTINUM CM Start: 10-01-2024 End: 10-01-2024 Patient encounter procedure Radiation Oncology Comment on above: G111-19 MEDIASTINUM BF TB1/cvg PP G111-19 TB1/cvg PP G111-19 p age Delaney Start: 09-30-2024 End: 09-30-2024 Patient encounter procedure 09/30/2024 2:15 PM EST Appointment Radiation Oncology [address] [place] [address] [place] [address] [place] [address] G111-19 MEDIASTINUM VMAT TIME OK/SCHED BF Radiation Oncology Comment on above: G111-19 MEDIASTINUM VMAT TIME OK/SCHED B F Start: 09-28-2024 End: 09-28-2024 Patient encounter procedure 09/28/2024 1:00 PM EST Office Visit Radiation Oncology [address] [place] [address] Kobe Medellin MD [address] [place] [address] Location: SIMULATOR CT-1 Radiation Oncology Comment on above: Location: SIMULATOR CT-1 Start: 09-28-2024 End: 09-28-2024 Nursing evaluation of patient and report 09/28/2024 12:30 PM EST Nurse Visit Radiation Oncology [address] [place] [address] Main, Nurse Radt [address] [place] [address] Location: NURSING CA-LL Radiation Oncology Comment on above: Location: NURSING CA-LL Start: 09-24-2024 End: 09-24-2024 Patient encounter procedure 09/24/2024 8:00 AM EST Appointment Cardiovascular Testing [address] [place] [address] ECHO Cardiovascular Testing Comment on above: ECHO Start: 09-20-2024 End: 09-20-2024 Patient encounter procedure 09/20/2024 3:00 PM EST Office Visit Radiation Oncology [address] [place] [address] Kobe Medellin MD [address] [place] [address] 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] Radiation Oncology Comment on above: T-cell acute lymphoblastic leukemia (ALL ) (HCC) [C91.00] Start: 09-17-2024 End: 09-17-2024 Patient encounter procedure 09/17/2024 3:00 PM EST Office Visit Palliative Medicine [address] [place] [address] [place] [address] Shana Ferguson, SAIL REPAIR PERSON.DATA REVIEW SPECIALIST [address] [place] [address] New consult pall med in [place]-cell acute lymphoblastic leukemia Palliative Medicine Comment on above: New consult pall med in [place]-cell ac elmer lymphoblastic leukemia Start: 09-10-2024 End: 09-10-2024 Patient encounter procedure 09/10/2024 3:00 PM EST Office Visit Palliative Medicine [address] [place] [address] [place] [address] Shana Ferguson, SAIL REPAIR PERSON.DATA REVIEW SPECIALIST [address] [place] [address] New consult pall med in [place]-cell acute lymphoblastic leukemia Palliative Medicine Comment on above: New consult pall med in [place]-cell ac elmer lymphoblastic leukemia Start: 09-06-2024 End: 09-06-2024 Patient encounter procedure 09/06/2024 11:00 AM EST Visit (SP) Office Palliative Medicine [address] [place] [address] Walt Higgins MD [address] [place] [address] NEW CONSULT PALL MED Palliative Medicine Comment on above: NEW CONSULT PALL MED Start: 09-06-2024 End: 09-06-2024 Chemotx admn carbon paste mixer operator req spinal puncture ADMINISTRATION CHEMOTHERAPY INTO ADJUSTER LEADER W/ SPINAL PUNCTURE TLL (T-cell lymphoblastic lymphoma) ([facility]) 09/06/2024 10:31 AM EST [facility] Start: 08-27-2024 End: 08-27-2024 Patient encounter procedure Molecular Imaging Comment on above: NM PET/CT WHOLE BODY SUBSEQUENT Start: 08-23-2024 End: 08-23-2024 ambulatory 08/23/2024 10:00 AM EST Visit (SP) Office Hematology/Oncology [address] [place] [address] [place] [address] [place] [address] C83.50 Hematology/Oncology Comment on above: C83.50 Start: 08-17-2024 End: 08-17-2024 ambulatory Hematology/Oncology Comment on above: C83.50 pentam Start: 08-16-2024 End: 11-15-2024 Microalbumin/Creatinine [Mass Ratio] in Urine ALBUMIN/CREATININE RATIO, URINE Lab Routine Type 2 diabetes mellitus with hyperglycemia, with long-term current use of insulin (HCC) Expected: 08/16/2024, Expires: 11/15/2024 [facility] Work Phone: Comment on above: Expected: 08/16/2024, Expires: Start: 08-16-2024 End: 08-16-2024 Follow-up encounter 08/16/2024 10:40 AM EST [facility] Endocrinology [address] [place] [address] Laly Buchanan, SAIL REPAIR PERSON.[facility] [address] [place] [address] Follow up in 1 month Endocrinology Comment on above: Follow up in 1 month Start: 08-09-2024 End: 08-09-2024 Patient encounter procedure [facility] Comment on above: Arrived Start: 08-06-2024 End: 08-06-2024 ambulatory 08/06/2024 1:45 PM EDT Infusion Center Hematology/Oncology [address] [place] [address] D VCR 6hr Hematology/Oncology Comment on above: D VCR 6hr Start: 08-06-2024 End: 08-06-2024 Admission to same day surgery center Angio Comment on above: ADMINISTRATION CHEMOTHERAPY INTO ADJUSTER LEADER W/ SPINAL PUNCTURE Start: 08-06-2024 End: 08-06-2024 Chemotx admn carbon paste mixer operator req spinal puncture [facility] Start: 08-06-2024 Subsequent hospital visit by physician Angio Comment on above: TLL (T-cell lymphoblastic lymphoma) (HCC ) [C83.50] Start: 08-06-2024 End: 08-06-2024 ambulatory Hematology/Oncology Comment on above: EST D VCR 6hr DR. JUAN CARLOS Ratliff EE PATIENT IN TREATMENT DO NOT ROOM Start: 07-16-2024 End: 10-15-2024 ALL T-CELL MRD [facility] Work Phone: Comment on above: Expected: 07/16/2024, Expires: Start: 07-16-2024 End: 07-16-2024 Procedure Pulmonary Medicine [facility] Comment on above: NO order Staff mssge sent C83.50 LD EXP 05/19/2025 C83 .50 Start: 07-16-2024 End: 07-16-2024 Admission to same day surgery center 07/16/2024 11:30 AM EDT - 07/16/2024 12:30 PM EDT Surgery Angio [address] [place] [address] PROGRAM RESEARCH SPECIALIST [address] [place] [address] ADMINISTRATION CHEMOTHERAPY INTO ADJUSTER LEADER W/ SPINAL PUNCTURE Angio Comment on above: ADMINISTRATION CHEMOTHERAPY INTO ADJUSTER LEADER W/ SPINAL PUNCTURE Start: 07-16-2024 End: 07-16-2024 Chemotx admn carbon paste mixer operator req spinal puncture [facility] Start: 07-16-2024 Subsequent hospital visit by physician 07/16/2024 11:30 AM EDT Hospital Encounter Angio [address] [place] [id number] PROGRAM RESEARCH SPECIALIST [address] [place] [address] TLL (T-cell lymphoblastic lymphoma) (HCC) [C83.50] Angio Comment on above: TLL (T-cell lymphoblastic lymphoma) (HCC ) [C83.50] Start: 07-16-2024 End: 07-16-2024 ambulatory Hematology/Oncology Comment on above: D VCR 6hr Start: 07-16-2024 End: 07-16-2024 ambulatory Hematology/Oncology Comment on above: EST Start: 07-13-2024 End: 07-13-2024 Follow-up encounter 07/13/2024 12:30 PM EDT [facility] Endocrinology [address] [place] [id number] Laly Buchanan, SAIL REPAIR PERSON.DATA REVIEW SPECIALIST [address] [place] [address] follow up Endocrinology Comment on above: follow up Start: 07-01-2024 End: 07-01-2024 Patient encounter procedure 07/01/2024 9:00 AM EDT Office Visit Gastroenterology [address] [address] Guille Dixon MD [address] [place] [id number] hosp d/c follow up Gastroenterology Comment on above: hosp d/c follow up Start: 06-25-2024 End: 06-25-2024 ambulatory Hematology/Oncology Comment on above: EST D VCR 6hr Start: 06-25-2024 End: 06-25-2024 Admission to same day surgery center Angio Comment on above: ADMINISTRATION CHEMOTHERAPY INTO ADJUSTER LEADER W/ SPINAL PUNCTURE Start: 06-25-2024 End: 06-25-2024 Chemotx admn carbon paste mixer operator req spinal puncture [facility] Start: 06-25-2024 Subsequent hospital visit by physician 06/25/2024 11:30 AM EDT Hospital Encounter Angio [address] [place] [address] PROGRAM RESEARCH SPECIALIST [address] [place] [address] TLL (T-cell lymphoblastic lymphoma) (HCC) [C83.50] Angio Comment on above: TLL (T-cell lymphoblastic lymphoma) (HCC ) [C83.50] Start: 06-25-2024 End: 06-25-2024 ambulatory 06/25/2024 10:45 AM EDT Infusion Center Hematology/Oncology [address] [place] [address] D VCR 6hr Hematology/Oncology Comment on above: D VCR 6hr Start: 06-25-2024 End: 06-25-2024 ambulatory 06/25/2024 9:40 AM EDT Infusion Center Hematology/Oncology [address] [place] [address] tx Lab Hematology/Oncology Comment on above: tx Lab Start: 06-18-2024 End: 06-18-2024 Patient encounter procedure Vascular Medicine Comment on above: PE/IJ thrombus NO order Staff mssge sent C83.50 TLL (T-cell lymphobl astic lymphoma) (HCC) Start: 06-08-2024 End: 06-08-2024 Admission to same day surgery center Angio Comment on above: ADMINISTRATION CHEMOTHERAPY INTO ADJUSTER LEADER W/ SPINAL PUNCTURE Start: 06-08-2024 End: 06-08-2024 Chemotx admn carbon paste mixer operator req spinal puncture ADMINISTRATION CHEMOTHERAPY INTO ADJUSTER LEADER W/ SPINAL PUNCTURE TLL (T-cell lymphoblastic lymphoma) (HCC) 06/08/2024 11:30 AM EDT ANGIO HB6 Start: 06-08-2024 Subsequent hospital visit by physician 06/08/2024 11:30 AM EDT Hospital Encounter Angio [address] [place] [address] PROGRAM RESEARCH SPECIALIST [address] [place] [address] TLL (T-cell lymphoblastic lymphoma) ([facility]) [C83.50] Angio Comment on above: TLL (T-cell lymphoblastic lymphoma) ([facility] ) [C83.50] Start: 06-06-2024 Covid-19 Vaccine ( season) Covid-19 Vaccine ( season) [facility] Start: 06-06-2024 Covid-19 Vaccine ( season) Covid-19 Vaccine ( season) [facility] Start: 06-06-2024 Influenza vaccination [facility] Start: 06-04-2024 End: 06-04-2024 ambulatory 06/04/2024 1:45 PM EDT Infusion Center Hematology/Oncology [address] [place] [address] D VCR 6hr Hematology/Oncology Comment on above: D VCR 6hr Start: 06-04-2024 End: 06-04-2024 ambulatory Hematology/Oncology Comment on above: Labs Per WQ EST Start: 06-03-2024 End: 06-03-2024 Patient encounter procedure Radiology Comment on above: Discharge follow up Start: 05-25-2024 End: 05-25-2024 Patient encounter procedure 05/25/2024 10:15 AM EDT Office Visit Endocrinology [address] [place] [id number] Wilda Mejia, SAIL REPAIR PERSON.DATA REVIEW SPECIALIST [address] [place] [id number] steroid hyperglycemia Endocrinology Comment on above: steroid hyperglycemia Start: 05-20-2024 End: 05-20-2024 ambulatory 05/20/2024 9:20 AM EDT [facility] Endocrinology [address] [place] [address] Laly Buchanan, SAIL REPAIR PERSON.DATA REVIEW SPECIALIST [address] [place] [address] steroid hyperglycemia Endocrinology Comment on above: steroid hyperglycemia Start: 05-19-2024 End: 05-19-2024 ambulatory Hematology/Oncology Comment on above: VELCADE 2 HRS-OKAY VAMSI SEE PATIENT IN TR X Start: 05-18-2024 End: 05-18-2024 Patient encounter procedure 05/18/2024 2:30 PM EDT Office Visit [facility] [address] [place] [address] Onesimo Mills MD [address] [place] [id number] [facility] Start: 05-03-2024 End: 05-03-2024 ambulatory 05/03/2024 9:30 AM EDT [facility] Hematology/Oncology [address] [place] [address] [place]Bra[place] Rodriguez, PA-C [address] [place], [place] [id number] VV HOS D/C - add on and 30 mins ok per braulio Hematology/Oncology Comment on above: VV HOS D/C - add on and 30 mins ok per j ill Start: 04-23-2024 End: 04-23-2024 CORE NEEDLE BIOPSY LUNG OR MEDIASTINUM PERC INCLD IMAGING GUIDANCE WHEN PERFORMED CORE NEEDLE BIOPSY LUNG OR MEDIASTINUM PERC INCLD IMAGING GUIDANCE WHEN PERFORMED Mature NK/t-cell lymphoma, unspecified body region, unspecified mature NK/t-cell lymphoma type (HCC) 04/23/2024 9:30 AM EDT [facility] ANGIO HB6 Start: 04-23-2024 End: 04-23-2024 Evaluation and management of inpatient 04/23/2024 9:30 AM EDT - 04/23/2024 10:58 AM EDT Surgery Angio [address] [place] [address] Valeriano Fitch MD [address] [place] [address] CORE NEEDLE BIOPSY LUNG OR MEDIASTINUM PERC INCLD IMAGING GUIDANCE WHEN PERFORMED Angio Comment on above: CORE NEEDLE BIOPSY LUNG OR MEDIASTINUM P ERC INCLD IMAGING GUIDANCE WHEN PERFORMED Start: 03-26-2024 Screening for malignant neoplasm of cervix [facility] Start: 10-06-2023 Behavioral Health Screening Behavioral Health Screening [facility] Start: 08-09-2023 [facility] Start: 06-06-2023 Covid-19 Vaccine () Covid-19 Vaccine () [facility] Start: 2005 Screening for malignant neoplasm of cervix Pap Smear [facility] Start: 2003 DTaP,Tdap and Td Vaccines (1 - Tdap) DTaP,Tdap and Td Vaccines (1 - Tdap) [facility] Start: 2003 Hepatitis B Vaccine (1 of 3 - 19+ 3-dose series) Hepatitis B Vaccine (1 of 3 - 19+ 3-dose series) [facility] Start: 2003 Pneumococcal vaccination Pneumococcal Vaccine (1 of 2 - PCV) [facility] Start: 2003 Shingrix Vaccine (1 of 2) Shingrix Vaccine (1 of 2) [facility] Start: 2003 Urine microalbumin profile DTaP,Tdap,Td Vaccine (1 - Tdap) [facility] Start: 2002 Adult BMI Follow Up Plan Adult BMI Follow Up Plan [facility] Start: 2002 Annual PCP Team Chronic Disease Visit Annual PCP Team Chronic Disease Visit [facility] Start: 2002 Anxiety Screening Anxiety Screening [facility] Start: 2002 BP Controlled (<130/80) BP Controlled (<130/80) [facility] Start: 2002 Depression Screening Depression Screening [facility] Start: 1995 Screening for malignant neoplasm of cervix Cervical Cancer Screening [facility] Start: 1994 Diabetic foot examination Diabetic Foot Exam [facility] Start: 1994 Glaucoma screening Dilated Retinal Exam [facility] Start: 1994 Hepatitis B screening Urine Albumin:Creatinine Ratio [facility] Start: 1990 Pneumococcal vaccination Pneumococcal Vaccine (1 of 2 - PCV) [facility] ALL T-CELL MRD ALL T-CELL MRD L ab Routine TLL (T-cell lymphoblastic lymphoma) ([facility]) 08/17/2024 11:37 AM EST [facility] Work Phone: Bacteria identified in Blood by Culture BLOOD CULTURE Microbiology Routine TLL (T-cell lymphoblastic lymphoma) ([facility]) 05/28/2024 12:51 PM EDT [facility] Work Phone: BLOOD CULTURE 1 BLOOD CULTURE 1 Lab Routine 09/23/2024 2:34 PM [facility] BLOOD CULTURE 2 BLOOD CULTURE 2 Lab Routine 09/23/2024 2:44 PM [facility] BONE MARROW ANALYSIS BONE MARROW ANALYSIS Lab Routine TLL (T-cell lymphoblastic lymphoma) ([facility]) 08/17/2024 11:35 AM [facility] BONE MARROW CHROMOSO ME ANAL BONE MARROW CHROMOSOME ANAL Lab Routine TLL (T-cell lymphoblastic lymphoma) ([facility]) 08/17/2024 11:37 AM [facility] Chemotx admn carbon paste mixer operator req spinal puncture ADMINISTRATION CHEMOTHERAPY INTO ADJUSTER LEADER W/ SPINAL PUNCTURE 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[facility]) [facility] CSF MANUAL DIFF CSF MANUAL DIFF Lab Routine TLL (T-cell lymphoblastic lymphoma) ([facility]) 09/06/2024 11:02 AM EST [facility] End: 08-31-2025 CSF PATHOLOGIST INTERPRETATION CSF PATHOLOGIST INTERPRETATION Lab Routine TLL (T-cell lymphoblastic lymphoma) ([facility]) Once per month for 4 Occurrences starting 09/06/2024 until 08/31/2025 [facility] Work Phone: Comment on above: Once per month for 4 Occurrences startin g 09/06/2024 until 08/31/2025 CSF PATHOLOGIST INTERPRETATION CSF PATHOLOGIST INTERPRETATION Lab Routine TLL (T-cell lymphoblastic lymphoma) ([facility]) 09/06/2024 11:02 AM [facility] End: 08-31-2025 CSF ROUT ANALYSIS CSF ROUT ANALYSIS Lab Routine TLL (T-cell lymphoblastic lymphoma) ([facility]) Once per month for 4 Occurrences starting 09/06/2024 until 08/31/2025, 1 completed [facility] Comment on above: Once per month for 4 Occurrences startin g 09/06/2024 until 08/31/2025, [address] Chest W contrast IV CT CHEST W IVCON Radiology Routine 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[facility]) 10/28/2024 2:03 PM [facility] Work Phone: DNA EXTRACTION BONE MARROW (BUFFY COAT) DNA EXTRACTION BONE MARROW (BUFFY COAT) Lab Routine TLL (T-cell lymphoblastic lymphoma) ([facility]) 08/17/2024 11:37 AM [facility] End: 09-22-2025 Echocardiography ECHO Cardiology Routine 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[facility]) 1 Occurrences starting 09/22/2024 until 09/22/2025 [facility] Work Phone: Comment on above: 1 Occurrences starting 09/22/2024 until 09/22/2025 End: 12-17-2025 MR Heart cine for blood flow velocity mapping MRI CARDIAC VELOCITY FLOW MAP Radiology Routine 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[facility]) 1 Occurrences starting 11/17/2024 until 12/17/2025 [facility] Work Phone: Comment on above: 1 Occurrences starting 11/17/2024 until 12/17/2025 PET+CT Whole body Reynaldo ne W 18F-NaF IV NM PET/CT WHOLE BODY SUBSEQUENT Radiology Routine 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[facility]) 08/27/2024 10:41 AM [facility] Work Phone: End: 06-19-2025 XR Chest PA and Lateral XR CHEST 2V FRONTAL/LAT Radiology Routine Surgery follow-up 1 Occurrences starting 05/20/2024 until 06/19/2025 [facility] Work Phone: Comment on above: 1 Occurrences starting 05/20/2024 until 06/19/2025 Payers Date Payer Category Payer Unknown 2024 Managed Care HMO (unspecified) MARIANA PEÑA [id number] 2024-Present [address] [place] [address] HMO [id number] 2023 Private Health Insurance [id number] 2023 Private Health Insurance [id number] 2023 Unknown [id number] 2017 Unknown [id number] 1984 Unknown [id number] 1984 Unknown [id number] .6 1984 Unknown [id number] 1984 Unknown [id number] 1984 Unknown [id number] 1984 Unknown [id number] 1984 Unknown [id number] 1984 Unknown [id number] .9 1984 Unknown [id number] .9 1984 Unknown [id number] 1984 Unknown [id number] Social History Date Type Detail Facility [facility] consumption unknown [facility] Work Phone: Start: 04-19-2024 End: 04-20-2024 History of Social function [facility] Start: 04-19-2024 End: 04-20-[address] [facility] Utilities [facility] Has the [employer], oil, or water company threatened to shut off services in your home in past 12Mo No [facility] (I/We) worried roberta er (my/our) food would run out before (I/we) got money to buy more. Never true [facility] In the past 12 month s, has lack of transportation kept you from medical appointments or from getting medications? No [facility] Start: 1985 Sex Assigned At Not on file [facility] Start: 01-28-2024 End: 07-01-2024 Tobacco smoking status DEIS Never smoked tobacco [facility] Start: 01-28-2024 End: 07-01-2024 Tobacco use and exposure Smokeless tobacco non-user [facility] Start: 02-27-2024 End: 11-24-2024 Alcoholic beverage intake Ex-drinker (finding) [facility] Do you belong to any clubs or organizations such as sikh groups, unions, fraternal or athletic groups, or school groups? Yes [facility] Are you now , , , , never or living with a partner? [facility] How often to you hav e a drink containing alcohol? Monthly or less [facility] How many standard dr inks containing alcohol do you have on a typical day? 1 or 2 [facility] How often do you hav e 6 or more drinks on 1 occasion? Less than monthly [facility] How hard is it for y ou to pay for the very basics like food, housing, medical care, and heating Not very hard [facility] Do you feel stress - tense, restless, nervous, or anxious, or unable to sleep at night because your mind is troubled all the time - these days [OSQ] Only a little [facility] Start: 02-27-2024 Alcohol Comment Every other month [facility] How often to you hav e a drink containing alcohol? Never [facility] Do you feel stress - tense, restless, nervous, or anxious, or unable to sleep at night because your mind is troubled all the time - these days [OSQ] [facility] Start: 1985 Sex assigned at Female [facility] [employer] [facility] Start: 08-13-2022 Gender identity Identifies as female gender (finding) [facility] Start: 08-13-2022 Sexual orientation Heterosexual (finding) [facility] Medical Equipment Procedure Code Equipment Code Equipment Origin al Text Equipment Identifier Dates Ultrasound Clip [id number] Start: 04-20-2024 [id number] Start: 05-17-2024 End: 11-23-2024 Use three times a day. [id number] Start: 05-17-2024 End: 07-23-2024 Check blood suga r every 8 hours while Tube feeding is running (0600, 1400, 2200) Patient instructed to record readings in the log book provided and take to all follow-up appointments, along with meter. [id number] Start: 05-17-2024 Use with insulin injections three times daily [id number] Start: 05-17-2024 Goals Date Patient Goal Desired Activity /State Personal health goal Personal health goal Comment on above: Formatting of this n ote might be different from the original. Evaluation of progress towards goal: safe transition from hospital to home with family support. Functional Status Date Assessment Result Facility 10-11-2024 Are you deaf, or do you have serious difficulty hearing No 10/11/2024 5:38 PM Anabell Dowell, BRIDGETTE No [facility] 10-11-2024 Are you blind, or do you have serious difficulty seeing, even when wearing glasses No 10/11/2024 5:38 PM Anabell Dowell, BRIDGETTE No [facility] 10-11-2024 Do you have serious difficulty walking or climbing stairs No 10/11/2024 5:38 PM Anabell Dowell RN No [facility] 10-11-2024 Do you have difficul ty dressing or bathing No 10/11/2024 5:38 PM Anabell Dowell, BRIDGETTE No [facility] 10-11-2024 Because of a physica l, mental, or emotional condition, do you have difficulty doing errands alone such as visiting a physician's office or shopping No 10/11/2024 5:38 PM Anabell Dowell, BRIDGETTE No [facility] Mental Status Date Assessment Result Facility 10-11-2024 Because of a physica l, mental, or emotional condition, do you have serious difficulty concentrating, remembering, or making decisions No 10/11/2024 5:38 PM Anabell Dowell, BRIDGETTE No [facility] Clinical Notes 02-03-2024 to 01-03-2025 Telephone Encounter - Vignesh Chappell RN - 01/03/2025 11:45 AM EDTTelephone Encounter - Vignesh Chappell RN - 01/03/2025 11:45 AM Manisha Pool RRT - 12/24/2024 11:20 AM EDT Note Date & Type Note Facility 01-03-2025 Telephone encounter Note Care Coordination Triage Note [facility] Situation: Patient reports Other Headache, heart palpitations, and hot flashes Background: Jose is calling to notify care team that pt is has been getting hot flashes again. Along with feeling heart palpitations. States pt denies feeling chest pressure like she did previously when cancer flared up . Assessment: Spoke with spouse and patient and she added that she has been having headaches off and on since Friday. Patient did endorse hot flashes and heart palpitations. Due to past hx of symptoms, it was shown, nodule in chest had grown in size requiring hospitalization on radiation. At this time, patient was instructed to go to their local ED for imaging and further testing. Encouraged spouse to call office with updates once they are at the ED. Spouse and patient agreeable to plan. Recommendations: Per RNCC , patient directed to: Emergency Room due to the issue being urgent. Encouraged spouse to call office with updates once they are at the ED. Spouse and patient agreeable to plan. Vignesh Chappell RN January 03, 2025 11:45 AM [facility] 01-03-2025 Miscellaneous Notes Care Coordination Triage Note Cancer [facility] Situation: Patient reports Other Headache, heart palpitations, and hot flashes Background: Jose is calling to notify care team that pt is has been getting hot flashes again. Along with feeling heart palpitations. States pt denies feeling chest pressure like she did previously when cancer flared up . Assessment: Spoke with spouse and patient and she added that she has been having headaches off and on since Friday. Patient did endorse hot flashes and heart palpitations. Due to past hx of symptoms, it was shown, nodule in chest had grown in size requiring hospitalization on radiation. At this time, patient was instructed to go to their local ED for imaging and further testing. Encouraged spouse to call office with updates once they are at the ED. Spouse and patient agreeable to plan. Recommendations: Per RNCC , patient directed to: Emergency Room due to the issue being urgent. Encouraged spouse to call office with updates once they are at the ED. Spouse and patient agreeable to plan. Vignesh Chappell RN January 03, 2025 11:45 AM Spoke with spouse and patient and she added that she has been having headaches off and on since Friday. Patient did endorse hot flashes and heart palpitations. Due to past hx of symptoms, it was shown, nodule in chest had grown in size requiring hospitalization on radiation. At this time, patient was instructed to go to their local ED for imaging and further testing. Encouraged spouse to call office with updates once they are at the ED. Spouse and patient agreeable to plan. Sonya Meyer('s) spouse: Jose is calling Marcelina Rangel MD, PhD today regarding 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 - Other (Symptoms ) Jose is calling to notify care team that pt is has been getting hot flashes again. Along with feeling heart palpitations. States pt denies feeling chest pressure like she did previously when cancer flared up . Patient has been identified by name and birthdate. Requesting response back: [phone] (home) [phone] (work) [phone] (cell) Malina Santo January 03, 2025 documented in this encounter [facility] 01-03-2025 Telephone encounter Note Spoke with spouse and patient and she added that she has been having headaches off and on since Friday. Patient did endorse hot flashes and heart palpitations. Due to past hx of symptoms, it was shown, nodule in chest had grown in size requiring hospitalization on radiation. At this time, patient was instructed to go to their local ED for imaging and further testing. Encouraged spouse to call office with updates once they are at the ED. Spouse and patient agreeable to plan. [facility] 01-03-2025 Telephone encounter Note Sonya Meyer('s) spouse: Jose is calling Marcelina Rangel MD, PhD today regarding 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 - Other (Symptoms ) Jose is calling to notify care team that pt is has been getting hot flashes again. Along with feeling heart palpitations. States pt denies feeling chest pressure like she did previously when cancer flared up . Patient has been identified by name and birthdate. Requesting response back: [phone] (home) [phone] (work) [phone] (cell) Malina Santo January 03, 2025 [facility] 01-03-2025 Telephone encounter Note Rx for MP6 routed to Dr. Rangel for signature. [facility] 01-03-2025 Miscellaneous Notes Rx for MP6 routed to Dr. Rangel for signature. Reached out to Dr. Pablo to see if he is okay to refill medication (last script was sent in September). Will follow-up. Sonya Meyer is calling Marcelina Rangel MD, PhD today regarding 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 - Other (RX Refill ) Sonya is calling to request a refill for the Mercaptopurine 50mg prescription. Patient has been identified by name and birthdate. Requesting response back: [phone] (home) [phone] (work) [phone] (cell) Malina Santo December 30, 2024 documented in this encounter [facility] 12-31-2024 Telephone encounter Note Reached out to Dr. Pablo to see if he is okay to refill medication (last script was sent in September). Will follow-up. [facility] 12-30-2024 Telephone encounter Note Sonya Meyer is calling Marcelina Rangel MD, PhD today regarding 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 - Other (RX Refill ) Sonya is calling to request a refill for the Mercaptopurine 50mg prescription. Patient has been identified by name and birthdate. Requesting response back: [phone] (home) [phone] (work) [phone] (cell) Malina Santo December 30, 2024 [facility] 12-24-2024 Note [facility] 12-24-2024 Procedure note Patient arrived to receive aerosol Pentamidine breathing treatment. Identity was confirmed with 2 patient identifiers. Lungs cta pretreatment. ra spo2 96, hr 80 Pentamadine was reconstituted with 6 cc sterile water. Patient given aerosol Pentamadine(Nebupent) 300mg via nebulizer w/ exhalation filter at 6l/m. Patient tolerated treatment well with no complaint of cough or dyspnea. Lung sounds unchanged post treatment. ra spo2 92, hr 80 Manisha Sutherland RRT [facility] 12-24-2024 Procedure note Patient arrived to receive aerosol Pentamidine breathing treatment. Identity was confirmed with 2 patient identifiers. Lungs cta pretreatment. ra spo2 96, hr 80 Pentamadine was reconstituted with 6 cc sterile water. Patient given aerosol Pentamadine(Nebupent) 300mg via nebulizer w/ exhalation filter at 6l/m. Patient tolerated treatment well with no complaint of cough or dyspnea. Lung sounds unchanged post treatment. ra spo2 92, hr 80 Manisha Sutherland RRT documented in this encounter [facility] 12-20-2024 Telephone encounter Note Spoke with gisela Miguel and provided diagnosis code for patient so she can receive her gabapentin. [facility] 12-20-2024 Miscellaneous Notes Spoke with gisela Miguel and provided diagnosis code for patient so she can receive her gabapentin. Myriam from [facility] is calling Marcelina Rangel MD, PhD today regarding 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 - Other (DX for Script) Myriam is requesting a DX code to fill the patients Gabapentin script. Patient has been identified by name and birthdate. Requesting response back: [phone] Jagruti Awad December 20, 2024 documented in this encounter [facility] 12-20-2024 Telephone encounter Note Myriam from [facility] is calling Marcelina Rangel MD, PhD today regarding 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 - Other (DX for Script) Myriam is requesting a DX code to fill the patients Gabapentin script. Patient has been identified by name and birthdate. Requesting response back: [phone] Jagruti Ritesh December 20, 2024 [facility] 12-20-2024 Telephone encounter Note Patient is requesting propranolol 20mg. TID to [facility] in [place]. I did not see this on her med list. Thank you. [facility] 12-20-2024 Miscellaneous Notes Patient is requesting propranolol 20mg. TID to [facility] [place]. I did not see this on her med list. Thank you. documented in this encounter [facility] 12-16-2024 History of Present illness Narrative [facility] Department of Cardiovascular Medicine VIRTUAL VIDEO VISIT ESTABLISHED OUTPATIENT VISIT SERVICE DATE: 12/16/2024 Patient: Sonya Meyer SERVICE TIME: 10:56 AM : 1985 This is a virtual video visit. It required patient-provider interaction for the medical decision making as documented below. Sonya Meyer has consented to this video encounter. I have communicated my name and active licensure. The patient's identity and physical location were verified at the time of this visit. Either the patient or their legal entry level account representative has been informed of the risks and benefits of -- and alternatives to -- treatment through a remote evaluation and consents to proceed with the evaluation remotely. Ms.Janette Meyer is a 39 year old female, Roman [employer] with past medical history of uterine fibroids s/p hysterectomy, who presented to an outside hospital with a chief complaint of dyspnea, cough as well as facial swelling. 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 Prior hospitalization was complicated with strep mitis bacteremia, therefore patient was started on Zosyn, transition to distraction. Repeat blood cultures after 72 hours were negative. TTE did not show any vegetation. Patient was a started on dexamethasone 8 mg IV twice daily. Patient refused any type of blood products. Patient is currently on heparin drip as well as dexamethasone. Primary team consulted our service for further recommendations regarding anticoagulation in the setting of left IJ vein thrombosis, with ongoing malignancy and SVC syndrome. Following, patient had a prolonged hospitalization complicated by respiratory insufficiency and transaminitis. Eventually was discharged home with a Corpak given difficulty with p.o. intake. Remains on Lovenox. Doing well. Remains on treatment for her underlying malignancy. Interim: Admitted from 09/24/2024 to 10/11/2024 for syncope and weakness (she reported an episodes of fall mid September and went to [facility] but was transferred to [facility] on [facility])-- echo revealed pericardial effusion, CT chest revealed interval increase in size of the mediastinal mass Her lovenox was held on discharge due to nose bleeds. Resumed 11/2024. No bleeding since. PAST MEDICAL HISTORY Diagnosis Date Hyperbilirubinemia 10/05/2024 -Tbili up trending over the past 24 hours with associated nausea >Fractionated Bili (10/05): Indirect 1.4, Direct 0.6 >CT A/P (10/05/24): Liver without any suspicious mass. Stable low-attenuation right hepatic lesion. Stable central prominence of the intra and extrahepatic bile ducts. Gallbladder is collapsed. 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 FAMILY HISTORY Problem Relation Age of Onset other (anemia) Mother Prostate Cancer Father 50 - 59 s/p prostatectomy Diabetes Father type I No Known Problems Maternal Grandmother No Known Problems Maternal Grandfather limited info Cancer Paternal Grandmother 87 unknown Dx No Known Problems Paternal Grandfather Cancer Paternal Uncle 50 - 59 lymph node, unknown pathology Diabetes Brother type I other (anemia) Half-sister Social History Tobacco Use Smoking status: Never Smokeless tobacco: Never Vaping Use Vaping status: Never Used Substance Use Topics Alcohol use: Not Currently Drug use: Not Currently ALLERGIES No Known Allergies CURRENT MEDICATIONS gabapentin (NEURONTIN) 300 mg capsule^Take 1 capsule in the morning and 2 capsules at night^Disp: 90 capsule^Rfl: 0 predniSONE (DELTASONE) 10 mg tablet^Take 7 tablets by mouth once daily.^Disp: 49 tablet^Rfl: 0 enoxaparin (LOVENOX) 80 mg/0.8 mL^Inject 0.725 mL subcutaneously every 12 hours.^Disp: 48 mL^Rfl: 0 acyclovir (ZOVIRAX) 400 mg tablet^Take 1 tablet by mouth two times a day.^Disp: 60 tablet^Rfl: 0 oxyCODONE IR (ROXICODONE) 10 mg tab^Take 1 tablet by mouth every 8 hours as needed for pain for up to 30 days.^Disp: 90 tablet^Rfl: 0 ondansetron orally disintegrating (ZOFRAN ODT) 8 mg disintegrating tablet^Dissolve 1 tablet by mouth every 8 hours as needed for nausea/vomiting.^Disp: 90 tablet^Rfl: 2 sertraline (ZOLOFT) 50 mg tablet^Take 1 tablet by mouth once daily.^Disp: 90 tablet^Rfl: 0 OLANZapine (ZYPREXA) 10 mg tablet^Take 1 tablet by mouth daily at bedtime.^Disp: 90 tablet^Rfl: 0 lancets (ONETOUCH DELICA PLUS LANCET) 33 gauge^Check blood sugar every 8 hours while Tube feeding is running (0600, 1400, 2200) Patient instructed to record readings in the log book provided and take to all follow-up appointments, along with meter.^Disp: 100 Each^Rfl: 0 insulin regular human (NOVOLIN R REGULAR U100 INSULIN) 100 unit/mL injection^Inject subcutaneously sliding scale insulin three times daily at 6AM, 2PM and 10 PM with tube feeds: If Blood Glucose (mg/dL) is Scale 2 If Blood Glucose (mg/dL) is: Less than 110 Give 0 units 111-150 Give 0 units 151-200 Give 2 units 201-250 Give 4 units 251-300 Give 6 units 301-350 Give 8 units 351-400 Give 10 units >400 Give 10 units and Call physician TDD up to 30 units^Disp: 10 mL^Rfl: 0 pantoprazole oral liquid 2 mg/mL (CPD)^Take 20 mL by mouth two times a day. Take two times daily before meals at 6am and 4pm^Disp: 1200 mL^Rfl: 0 fluconazole (DIFLUCAN) 200 mg tablet^Take 1 tablet by mouth once daily.^Disp: 30 tablet^Rfl: 0 HYDROcodone-homatropine (HYDROMET) 5-1.5 mg/5 mL syrup^Take 5 mL by mouth at bedtime as needed.^Disp: 150 mL^Rfl: 0 propranolol (INDERAL) 20 mg/5 mL oral liquid^Take 5 mL by mouth three times a day.^Disp: ^Rfl: nutritional supplement (OSMOLITE 1.2 YUIR) 0.06 gram-1.2 kcal/mL liqd^55 mL/hr by FEEDING TUBE route continuous. Tube Feeding Formula Type: Osmolite 1.2 or equivalent Rate: 55 ml/hr x 24 hours (1320 ml total volume, 1584 kcals, 73 gm prot) Water Flush: Flush with 70 mL every 4 hours^Disp: 62074 mL^Rfl: 0 sodium chloride 0.9 %, flush, (NORMAL SALINE FLUSH) syringe^Inject 10 mL intravenously once daily.^Disp: 600 mL^Rfl: 5 cetirizine (ZYRTEC) 10 mg tablet^Take 1 tablet by mouth once daily.^Disp: 30 tablet^Rfl: 3 glucagon (GVOKE HYPOPEN 1-PACK) 1 mg/0.2 mL auto-injector^Inject 1 mg subcutaneously as needed.^Disp: 0.4 mL^Rfl: 0 insulin syr/ndl U100 half nimesh (BD INSULIN SYRINGE, HALF UNIT,) 0.3 mL 31 gauge x 5/16 syrg^Use with insulin injections three times daily^Disp: 100 Each^Rfl: 0 REVIEW OF SYSTEMS: GENERAL: Negative for: Weight loss or gain, Fever or Chills, Weakness and Sleep difficulties. HEENT: Negative for: Headache, Impaired Vision, Glasses, Hearing Impairment, Ringing in Ears, Nosebleeds, Poor dental care, Bleeding Gums, Dentures NECK: Negative for: Swelling, Pain, Stiffness RESPIRATORY: Negative for: Cough, Blood in Sputum, Shortness of breath, Wheezing, Apnea GASTROINTESTINAL: Negative for: Trouble swallowing, Heartburn, Change in bowel habits, Blood in stool, Dark black stools MUSCULOSKELETAL: Negative for: Muscle or joint pain, Stiffness , Joint swelling NEUROLOGIC/PSYCHIATRIC: Negative for: Weakness, Paralysis, Numbness, Tingling, Tremor, Nervousness, Depressed mood, Memory loss SKIN: Negative for: Rashes, Itching HEMATOLOGICAL/LYMPHATIC: Negative for: Easy bruising , Easy bleeding ENDOCRINE: Negative for: Heat or cold intolerance, Excessive sweating, Frequent urination, Frequent thirst PHYSICAL EXAMINATION: VIDEO EXAM: (if completed, performed via video enabled technology) No exam performed PATIENT ENTERED QUESTIONNAIRE SCORES 11/12/2024 PHQ-9 PHQ-2 Score 2 11/12/2024 08/14/2024 PROMIS Global Health - (T-Scores - the mean of general population = 50. Five points is a clinically meaningful difference.) Physical T-Score 29.6 39.8 Mental T-Score 31.3 41.1 ASSESSMENT: 39 yo F Jehova's witness with no remarkable history who presented with facial swelling and reflux symptoms. Workup revealed large mediastinal mass causing SVC syndrome. Incidentally found to have left IJ DVT on CT imaging. Formally diagnosed with T-cell AL L/lymphoma and later more extensive DVT and PE. Patient's imaging consistent with SVC obstruction as well as left subclavian vein obstruction. As such I do agree with recommendation of anticoagulation not only for treatment of the cancer associated DVT but more importantly for maintaining patency of patient's remaining thoracic venous system. Mass still present on recent imaging despite treatment. Currently, patient remains on anticoagulation with Lovenox given inability to tolerate p.o. intake. As such, we will continue. Tolerating well. Previous bleeding has abated. May have surgery in the future. Once patient is able to tolerate p.o. intake, we will transition patient to a DOAC. Otherwise she is doing well. Recommendations _Continue Lovenox 70mg BID as long as active malignancy and transition to DOAC when ready and tolerating PO intake _ For future travel, recommend use knee high compression stockings + short walks every 1 - 1.5 hours _ For future hospital admissions, recommend use of IPCDs, Harris hose, low dose injectable blood thinners _ Reviewed signs/symptosm of recurrent VTE and encouraged pt to seek medical attention if these occur _ Use compression stockings for prolonged immobility _ Will follow with PCP for malignancy screening Follow up in 6 months Olga Ureña MD, [facility] Staff Physician Section of Vascular Medicine Britt and Ariana Viera Department of Cardiovascular Medicine [facility] V[facility] I have reviewed the imaging studies with and showed the findings. verbalized understanding and agreed with the management plan. Thank you for the opportunity to participate in the care of . Olga Ureña MD, [facility] Staff Physician Section of Vascular Medicine Britt and Ariana Viera Department of Cardiovascular Medicine [facility] I personally spent 15 minutes in total time involved in the management and care of this patient. Olga Ureña MD December 16, 2024 10:56 AM documented in this encounter [facility] 12-16-2024 Note [facility] 12-15-2024 Telephone encounter Note Called spouse and patient. left vm and advised per Dr. Roberts based on AST/ALT results from today patient can resume her MP6, but she will need to continue to hold her fluconazole and have her labs drawn next week. Call back number provided fr any additional questions. [facility] 12-15-2024 Miscellaneous Notes Called spouse and patient. left vm and advised per Dr. Roberts based on AST/ALT results from today patient can resume her MP6, but she will need to continue to hold her fluconazole and have her labs drawn next week. Call back number provided fr any additional questions. documented in this encounter [facility] 12-14-2024 History of Present illness Narrative Oncology Nutrition Therapy Progress Note I have communicated my name and active licensure. The patient's identity and physical location were verified at the time of this visit. Either the patient or their legal entry level account representative has been informed of the risks and benefits of -- and alternatives to -- treatment through a remote evaluation and consents to proceed with the evaluation remotely. RECOMMENDED MALNUTRITION DIAGNOSIS: SEVERE PROTEIN-CALORIE MALNUTRITION per RD on 11/29/2024 Some elements copied from my note on 11/29/2024, have been updated and all reflect current decision making from today, 12/14/2024 Nutriscore: Patient Score : 0 Nutrition Intervention: -continue NPO status -discussed considerations for corpak replacement vs more suitable long-term enteral access device such as PEG tube. -pt to consider referral to the enteral access clinic -continue EN regimen as follows: Current Enteral Access (and tip placement): Nasoenteric Small Bore Feeding Tube (Corpak). Tube Tip Location: Stomach Tube connection type: ENFit Attached clamp: No Extension: John MICHELLE Connector Tube placement details if available (ie surgeon, date place/replaced, etc): 04/23/2024 by NST-Nutrition Team during admission. Pt states current corpak in place today, 11/29/2024 is still the original tube and has not had a replacement Current Tube Feeding Formula:?Osmolite 1.5 Current Rate:?Continuous/cycled pump infusion of 45mL/hr x 24 hours (1080mL total/day) via Infinity pump Current Rate Provides: 1620 kcal, 68g pro,?823mL free water per day??? Current Water Flush (mL x freq):? 70mL X 6 per day Current Water Flush Provides: Additional 420mL free water per day? Current Enteral Modular/Additive: None Current Enteral Modular/Additive Provides: n/a Current Tolerance:Good Other formulas tried and not tolerated:?None Home Health Care: None Home Infusion Pharmacy: [facility] Managing Physician/Staff: Dr. 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 Current Treatment: intrathecal methotrexate Previous Treatment(s): -s/p Cyclophosphamide, vincristine and prednisone (CVP) (04/23/2024-08/06/2024) -subcutaneous bortezomib x 5 w/ last dose on 10/07/2024 -RT, 5 fractions (09/30/2024-10/05/2024) Pt states she did a trial of increasing rate to 50mL/hr but felt within 2 hours she had an increase in reflux. She decreased back to 45mL/hr with good tolerance. She reports she had an appointment with her oncologist and TB last week and her weight was 154#, which would be a gain. Recommended pt continue EN regimen with 45mL/hr x 24 hours as above. Will continue to monitor weight. Pt states she is hoping to see physician at [facility] to readdress if she is a surgical candidate again and from there will decide how she wishes to proceed with her enteral access and consider corpak replacement vs PEG. READINESS TO LEARN Cognitive ability: Alert and oriented Motivation to learn: Interested Family support: High - Very involved in pt care Instruction provided to: Patient and family member Patient learns best by: Individual Instruction Factors affecting learning: None Physical limitations affecting learning: None Educational materials provided: none this visit Need for Follow up: will continue to follow Referred by: Anirudh VELASQUEZ Billing Type: Re-assess/15 min 1 unit Billed Time: 15 minutes Signed by: Radha Garcia RD, ENVIRONMENTAL SERVICES SPECIALIST, JOSÉ MIGUEL documented in this encounter [facility] 12-14-2024 Note [facility] 12-09-2024 Note [facility] 12-09-2024 History of Present illness Narrative [facility] Department of Hematologic Oncology and Blood Disorders PATIENT NAME: Sonya Meyer [facility] NO: [id number] DATE OF SERVICE:11/12/2024 Diagnosis: 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 Presented with large anterior mediastinal mass (~14 cm) causing SVC syndrome and LIJ thrombus. No bone marrow or ADJUSTER LEADER involvement at diagnosis Current treatment - Cyclophosphamide, vincristine and prednisone (CVP) repeated every 21 days with intrathecal methotrexate and bortezomib C1D1 - 04/23/2024 C2D1 - 05/14/2024 C3D1 - 06/04/2024 C4D1 - 06/25/2024 C5D1 - 07/16/2024 C6D1 - 08/06/2024 IT Methotrexate administered on 05/03/2024, 05/10/2024, 06/08/2024, 06/25/2024, 10/07/2024. Subcutaneous bortezomib - on 04/30/2024, 05/14/2024, 05/19/2024 (Dced due to peripheral neuropathy) Radiation: 2000 cGy in 5 fractions at 400 cGy/fraction (09/30/2024 to 10/05/2024 ) Transfusion status - Jevoha's witness. No blood product administration. Interval History - - Admitted from 09/24/2024 to 10/11/2024 for syncope and weakness (she reported an episodes of fall mid September and went to [facility] but was transferred to [facility] on Sep)-- echo revealed pericardial effusion, CT chest revealed interval increase in size of the mediastinal mass DC summary: (Her radiation course was complicated by skin irritation and nausea. The nausea was controlled with Zofran and Zyprexa. The skin irritation improved with lotion. She also developed fevers during the hospitalization. An infectious work-up resulted positive for a tracy UTI that was treated with fluconazole. Repeat urine cultures were clear. She underwent a CT chest which showed bilateral opacities concerning for infection. She was treated with IV Zosyn. ID was consulted and helped guide antibiotic therapy. She also received an LP with IT chemo during the admission as previously scheduled. Her CSF was negative for blasts. Her lovenox was held on discharge due to nose bleeds. She was instructed not to resume until instructed to do so by her primary oncologist. ) Code status change: - DNR-CCA, DNI --per primary: GOC discussions had with the patient and her . Discussed that unfortunately treatment is palliative in nature and not curative. Patient changed code status to DNR-CCA, DNI per patient request on 09/28. Interbal Labs: OSH CSF flow cyto 10/07/2024: There are too few lymphocytes to accurate analyze the immunophenotypic evidence of involvement by a lymphoproliferative disorder or lymphoblastic leukemia/lymphoma in this limited sample. CBC: WBC 5.57<6, ANC 4.83<5.79, Lymphocytes 0.15<0.20, Hb 8.4<7.9 , plt 97<204. CMP: protein 6.4<6 ( chronic), elevated ALP 178<161 <144<117<124, normal AST ALT BMBx 08/17/2024: Chromosomal analysis: Ten metaphase cells were analyzed from the culture stimulated with ODN and ten metaphase cells were analyzed from the 24 hour unstimulated culture. Twenty cells analyzed showed a 46,XX karyotype. There was no significant numerical chromosome abnormality and no structural change detected within the limits of resolution. The analysis in April 2024 also showed a normal karyotype. Interval Scans CT chest 10/05: - Massive (20 x 8 cm maximally 10/05, was 10 x 15 x 14 cm in 09/25, 13 x 14 x 9 cm on 05/10) heterogeneous mass / prevascular lymphadenopathy with intrinsic areas of low-attenuation suggestive of necrotic lymphadenopathy consistent with known T-cell acute lymphoblastic lymphoma/leukemia - Small to moderate pericardial effusion - Caliber of the distal/lower SVC chambers down, probably related toextrinsic compression - Atelectatic consolidative opacities involving portions of the middle lobe, and left lower lobe - Small left pleural effusioN CT Abdomen and pelvis 10/05: - Stable exam. No acute abdominopelvic process or drainable fluid collection. No new or enlarging lymphadenopathy. CT Brain wo 10/02 - No acute findings. No acute infarction, intracranial hemorrhage or intracranial mass lesion. MRI brain 09/25; Stable focus of T2/FLAIR hyperintensity in the right periatrial white matter without susceptibility, enhancement, or significant mass effect, which is nonspecific, and may be due to prior infectious/inflammatory insult, but continued follow-up may be helpful. No acute intracranial process. No intracranial mass or abnormal intracranial enhancement otherwise DVT scan 10/03 : Neg for DVT OSH Echo: 09/28: Small pericardial effusion, EF 55 %, known pericardial effusion (in setting of a known anterior mediastinal mass) appears slightly smaller in size compared to prior study. IVC is plethoric and does not collapse with respiration, but there is no chamber inversion or collapse. No echocardiographic evidence of tamponade physiology. Impression: This is a 38-year-old lady who is [employer] with early T-cell precursor lymphoblastic leukemia/lymphoma who is here for follow up. 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 She has completed six cycles of CVP with intrathecal methotrexate and bortezomib (three doses, discontinued due to peripheral neurotoxicity). She relapsed and received radiation: 2000 cGy in 5 fractions at 400 cGy/fraction (09/30/2024 to 10/05/2024 ). She has progressive disease. The plan of care based on today's assessment is as follows - - Due to Roman [employer] marta which precludes use of blood products, therapeutic options are very limited. This is incurable. To assess her response to mediastinal radiation she will receive a follow up CT Chest on 10/28/2024 at [place]. She will not be on any systemic therapy till then other than supportive care. - A follow up video/telephone visit after a week to assess clinical conditions. Will need in person follow-up ivisit after the CT scan for potential discussion of future treatments. - At patient's and her 's request we will send a request for second opinion with a doctor who has expertise on treating cancer in [place]. - Continue Acyclovir and Fluconazole prophylaxis 2) Steroid induced hyperglycemia - Continue with blood glucose assessment and insulin use to manage hypoglycemia when on steroids. 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 Lovenox was held during hospitalization due to nosebleed, but as now she is not complaining of bleeding from any source show will continue continue Lovenox 1 mg/kg BID. Patient informed she will start Lovenox today 4) Elevated transaminases - Liver MRI (05/06/24) showed diffuse hepatic steatosis. 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 No acute surgical intervention recommended as of now. Will hold off on PEG tube placement at this time, maintain corpak. As she has gotten 5 radiation therapy to her chest, right now she will not a candidate for another surgery, so at this point, she will be dependent on the tube feed. Will continue tube feed 6) Right Breast nodule: Underwent breast biopsy on 04/20/2024 demonstrating no blastoid features and consistent with benign fibroadenoma. No active intervention required. 7) New asymmetric (L>R) lower extremity swelling: - Previous DVT ultrasound during hospital admission on 10/03 revealed no DVT. But her asymmetric leg swelling is not improving. She does not have any leg pain or calf pain. We will start Lasix (will check if Lasix is crushable) for 3 days. She will let us know about any improvement with Lasix next Friday or Friday. Patient agreeable Clinical course, treatment dates, hospitalizations and response assessments - (a) Presenting symptoms - Transferred to [facility] on 04/17/2024 after presenting to outside hospital with ~2 weeks of dyspnea and cough, followed by facial swelling. 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 A bone marrow biopsy was performed on 04/19/2024 which showed no evidence of marrow involvement. NGS testing was performed and notable for a TP53 mutation. Given patient's synagogue preferences ([place]), she was started on cycle 1 CVP therapy on 04/23/2024. Her treatment course was complicated by acute hypoxic respiratory failure secondary to multifactorial issues (right lower lobe pulmonary embolism, left lower lobe pneumonia, superior vena cava syndrome), however was able to be weaned back down to room air. ID was consulted, and patient completed course of Zosyn from 04/19 to 04/26. Vascular medicine was consulted, and patient was started on therapeutic doses of Lovenox. While admitted, Ms. Meyer had repeat episodes of dysphagia, so a Corpak was placed and speech pathology was consulted. Ms. 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 Thoracic surgery was consulted and recommended no acute surgical intervention given large mediastinal mass with plan for outpatient follow-up post-discharge. Her course was also complicated by transaminitis for which she underwent a liver MRI which revealed diffuse hepatic steatosis and a contracted gallbladder with stones but without any suspicious liver lesions nor lymphoproliferative involvement of the abdomen. Hepatology was consulted and it was thought to be due to Injury from vincristine (vinca alkaloid) vs. Bortezomib vs. possible leukemia infiltrative process. Ms. Meyer was also noted to have steroid-induced hyperglycemia for which endo was consulted and recommended insulin at discharge. She was seen by a certified breastfeeding educator and educated on use with plans to follow up with Endocrinology outpatient post discharge. Prior to discharge, Ms. Meyer was educated on line care, TF care, and administration of Lovenox/Insulin. She was started on C2 of CVP on 05/14/2024 without complication and subsequently discharged on 05/17/2024. (b) Baseline diagnostic evaluations - Presented to [facility] ED on 04/07 with complaints of SOB and cough x2 weeks and new facial swelling. 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 CT Chest 04/18: Large anterior mediastinal mass reportedly related to known T-cell LBL. Attempted to get LN Biopsy slides from [facility]: called and spoke to path lab, and fax request sent. CT-guided core needle mediastinal biopsy (04/23/24) at [facility] Demonstrated fragmented cores of lymphoid tissue showing areas with significant crush artifact limiting morphologic evaluation. A relatively diffuse proliferation of intermediate to large lymphoid cells is seen with mildly irregular nuclear contours, finely dispersed chromatin, inconspicuous nucleoli and scant cytoplasm. Apoptotic bodies and mitoses are present. Immunohistochemical/in situ hybridization stains were performed on sections from block A1 for further evaluation of the atypical lymphoid proliferation. CD3 shows numerous positive cells throughout that coexpress CD34, NOTCH1, LMO2, CD5 (minor subset) and are negative for CD20, TdT, CD30, ALK1, CD2 and chromogenic in situ hybridization for EBV-encoded small RNA (JUANITO). Ki-67 proliferation fraction is difficult to interpret due to significant crush artifact, but appears high with many positive cells. Flow cytometric immunophenotypic studies demonstrate an abnormal T-cell population that is positive for CD3, CD4, CD7 with very dim to negative CD5 expression and monotypic TRBC1 expression. The abnormal T cells are negative for CD2 and CD8. NGS: TP53 mutation p.R248Q, [id number], c.743G>A, VAF: 93.8% RNA sequencing: No fusions detected. FLT3 Internal Tandem Duplication (ITD) mutation: Not Detected -S/P BMBx (04/19/24) :No e/o leukemia -S/P breast biopsy on 04/20 - no blastoid features; benign fibroadenoma -LP with IT chemo (05/03/24): Negative -LP with IT chemo (05/10/24) - Negative -Repeat CT Chest (05/10/2024) - Slightly decreased large anterior and superior mediastinal mass -PET/CT (05/12/2024) - anterior mediastinal mass w/ heterogenous uptake and areas suggestive of necrosis Review of systems other than interval history: Constitutional: No fever, chills, night sweats, anorexia or malaise. Eyes: No change in vision, blurriness, diplopia, redness, or irritation. ENT: No mouth sores or bleeding gums; no hoarseness of voice. . No epistaxis or other nasal problems. No changes in hearing, vertigo, or tinnitus. Respiratory: No coughing, wheezing, dyspnea at rest, exertional dyspnea, or hemoptysis. Cardiovascular: No anginal symptoms, palpitations, orthopnea, PND, syncopal events or presyncopal events. Gastrointestinal: Occasional nausea, No vomiting, heartburn or acid reflux, diarrhea, constipation or abdominal cramping. Bowel habit is unchanged; and no melena or hematochezia. On tube feeds (has NGT) Genitourinary: No urgency, frequency, dysuria, or hematuria. No hesitancy or decreased urinary stream, incomplete emptying or ncontinence. Musculoskeletal: Per HPI Skin: Abdominal skin has anticipatory rash from lovenox injections. Neurological: No syncope, near-syncope, or seizures or alteration in sensorium or motor strength. 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 Endocrine: Negative for temperature intolerance, unusual sweating, or symptoms of glucose intolerance. Hematologic/Lymphatic: Negative for prolonged bleeding, easy bruising, and swollen nodes. No lower extremity edema. Allergic/Immunologic: No itching, or jaundice. Past medical and surgical history: - Uterine fibroids s/p hysterectomy Family and social history: Paternal grandmother Stomach cancer Father's brother: Lump in neck, unclear cancer Father: Prostate cancer Allergies: None Physical Examination: Vitals: LMP (LMP Unknown) General: of very pleasant disposition, sitting comfortably in wheel chair, with NG tube and Tube-feeds running, in no acute distress, accompanied by her ECOG performance is 1 HEENT: EOMI; PERRL, no thrush or petechiae , has NG tube Neck: Supple, no thyromegaly, CV: Tachycardia, S1S2 normal, no M/R/G Chest: Clear to auscultation bilaterally without any wheezes, rales or rhonchi. Abd: soft, obese, NT/ND, + BS, no hepatosplenomegaly Ext: 1 + on the rt LE and 2+ on the LLE Neuro: No focal deficits LN: No supraclavicular, infraclavicular, axillary, epitrochlear or inguinal lymphadenopathy. Current Medications: Reviewed from [facility] and confirmed with the patient. Labs: Reviewed from [facility] and integrated in assessment and plan. Tristan Desai MD (click to page) PGY-2 Internal Medicine [facility] October 15, 2024 I have personally examined the patient, reviewed the findings and agree with the plan of care as detailed in the resident's note. Marcelina Rangel MD PhD MPH Associate Staff Hematologic Oncology and Blood Disorders Pager [phone] Date of service: 11/12/2024 I spent a total of 40 minutes on the date of the service which included preparing to see the patient, [id number] patient care, completing clinical documentation, obtaining and/or reviewing separately obtained history, performing a medically appropriate examination, counseling and educating the patient/family/caregiver, ordering medications, tests, or procedures, independently interpreting laboratory and imaging results (not separately reported), communicating results to the patient/family/caregiver, and care coordination (not separately reported). documented in this encounter [facility] 12-03-2024 Telephone encounter Note Images from the original note were not included. [facility] AFTER-HOURS COVERAGE Patient name: Sonya Meyer Primary Oncologist: Dr. Rangel Patient went to local ED for imaging today due to slight worsening in pressure in the chest yesterday. Doctors there thought she looked good. The CT hasn't been sent over to our system but her read me the report and the mass is described as having 8.5 x 3.2 cm in its largest dimension. Comparing to report from 10/28/24 it is possibly smaller or stable, but does not seem to be larger. Today she has no pain or pressure, just stable shortness of breath. I explained it is hard to compare without having the images side by side, but considering this report and the fact that the patient feels well, would not recommend any further action at this time. Encouraged to call back if she develops any new or worsening symptoms. Glo Cheung MD Hematology & Oncology Fellow Pager: [phone] After hours coverage: [id number] [facility] 12-03-2024 Miscellaneous Notes Images from the original note were not included. [facility] AFTER-HOURS COVER[facility] Patient name: Sonya Meyer Primary Oncologist: Dr. Rangel Patient went to local ED for imaging today due to slight worsening in pressure in the chest yesterday. Doctors there thought she looked good. The CT hasn't been sent over to our system but her read me the report and the mass is described as having 8.5 x 3.2 cm in its largest dimension. Comparing to report from 10/28/24 it is possibly smaller or stable, but does not seem to be larger. Today she has no pain or pressure, just stable shortness of breath. I explained it is hard to compare without having the images side by side, but considering this report and the fact that the patient feels well, would not recommend any further action at this time. Encouraged to call back if she develops any new or worsening symptoms. Glo Cheung MD Hematology & Oncology Fellow Pager: [phone] After hours coverage: [id number] documented in this encounter [facility] 12-03-2024 Telephone encounter Note Spoke with spouse and advised him to go to the local ED. Spouse agreeable to plan. [facility] 12-03-2024 Miscellaneous Notes Spoke with spouse and advised him to go to the local ED. Spouse agreeable to plan. Sonya Meyer spouse is calling Marcelina Rangel MD, PhD today regarding 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 - Other (Medical advice) Patient has been identified by name and birthdate. He states she is having pressure in her chest and a little short of breath. Duration of symptoms: N/A Requesting response back: call on cell [phone] (cell) Lesvia Kirk December 03, 2024 documented in this encounter [facility] 12-03-2024 Telephone encounter Note Sonya Meyer spouse is calling Marcelian Rangel MD, PhD today regarding 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 - Other (Medical advice) Patient has been identified by name and birthdate. He states she is having pressure in her chest and a little short of breath. Duration of symptoms: N/A Requesting response back: call on cell [phone] (cell) Lesvia Kirk December 03, 2024 [facility] 11-29-[address] - 11/29/2024 12:54 PM EST -continue NPO status -discussed considerations for corpak replacement vs more suitable long-term enteral access device such as PEG tube. -consider referral to the enteral access clinic. If agreeable, I can help with arranging this for you. -recommend increasing rate back to 55mL/hr x24 hours as previously prescribed from 45mL/hr as tolerated documented in this encounter [facility] 11-29-2024 History of Present illness Narrative Oncology Nutrition Therapy Initial Assessment RECOMMENDED MALNUTRITION DIAGNOSIS: SEVERE PROTEIN-CALORIE MALNUTRITION In the context of Chronic Illness or Injury based on: Unintentional Weight Loss: >5% in 1 month Insufficient Energy Intake: Less than 75% energy intake compared to estimated needs for greater than or equal to 1 month Nutriscore: Patient Score : 0 Nutrition Diagnosis: Swallowing difficulty, related to, mediastinal mass, tracheoesophageal fistula, as evidenced by inability to take NPO, need for long-term enteral nutrition Nutrition Intervention: -continue NPO status -discussed considerations for corpak replacement vs more suitable long-term enteral access device such as PEG tube. -pt to consider referral to the enteral access clinic -recommend increasing rate back to 55mL/hr x24 hours as previously prescribed from 45mL/hr as tolerated Current Enteral Access (and tip placement): Nasoenteric Small Bore Feeding Tube (Corpak). Tube Tip Location: Stomach Tube connection type: ENFit Attached clamp: No Extension: John MICHELLE Connector Tube placement details if available (ie surgeon, date place/replaced, etc): 04/23/2024 by [facility]ST-Nutrition Team during admission. Pt states current corpak in place today, 11/29/2024 is still the original tube and has not had a replacement Current Tube Feeding Formula:?Osmolite 1.5 Current Rate:?Continuous/cycled pump infusion of 55mL/hr x 24 hours (1320mL total/day) via Infinity pump Current Rate Provides: 1584 kcal, 70g pro,?1099mL free water per day??? Current Water Flush (mL x freq):? 70mL X 6 per day Current Water Flush Provides: Additional 420mL free water per day? Current Enteral Modular/Additive: None Current Enteral Modular/Additive Provides: n/a Current Tolerance:Good Other formulas tried and not tolerated:?None Home Health Care: None Home Infusion Pharmacy: [facility] Managing Physician/Staff: Dr. Rangel, Hem/Onc ? 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 Current Treatment: intrathecal methotrexate Previous Treatment(s): -s/p Cyclophosphamide, vincristine and prednisone (CVP) (04/23/2024-08/06/2024) -subcutaneous bortezomib x 5 w/ last dose on 10/07/2024 -RT, 5 fractions (09/30/2024-10/05/2024) PMHx: HTN, per chart review, MBS/Esophagram 05/05/24 - reporting Tracheoesophageal fistula arising from the upper esophagus just below the thoracic inlet Met with pt and spouse today to assess enteral nutrition and corpak. Pt reports initially when started on tube feeds during admission of April 2024 she felt she wasn't tolerating tube feeds due to possible reflux, so tube was advanced to small bowel. She states now, tip location of tube is in her stomach and she tolerates well as long as she remembers to take her antiemetic and PPI. Pt reports she had another hospitalization end of September 2024 and again had some concerns of tolerance and was told to decrease from the previously recommended 55ml/hr to 45ml/hr. She states she has not had further follow up with a dietitian since regarding tolerance or rate. Discussed with pt, now that she has good medication management for side effects, I'd like her to trial increasing her tube feeds back to 55ml/hr x 24 hours due to concerns of inadequate calorie/protein intakes which has likely contributed to recent weight loss. Pt is agreeable to try this. Discussed with pt concerns that her corpak is ~8 months old and typically these types of tubes are only used short term. Pt states she has not received much information or knowledge about the types of tube feedings or how they are placed. She is worried about having her corpak replaced due to remembering how uncomfortable the initial experience is. Asked pt if she would like more information on more suitable long-term feeding tube such as PEG tube. Pt expressed desire to learn more. Educated pt on PEG tube, how they are typically placed, how this can potentially improve her QOL, and the various methods of administering formula and water flushes depending on tolerance and how this could give her a break from being hooked up to a feeding tube pump 28/04. Pt verbalized understanding and appreciation of this information. I offered to assist in getting her a referral to the enteral access clinic to speak to a GI provider regarding corpak replacement vs transitioning to a PEG tube. Pt is going to think about this and let me know at a later date what she would prefer. Thank you for allowing me to participate in the care of this pt. Readiness to Learn: Cognitive ability: Alert and oriented Motivation to learn: Interested Family support: High - Very involved in pt care Instruction provided to: Patient and family member Patient learns best by: Individual Instruction Factors affecting learning: None Physical limitations affecting learning: None Educational materials provided: none this visit Anthropometrics: Height: Last 1 Encounter Ht Readings: Date: Ht: 11/24/2024 152 cm ( ) Current weight: Last 1 Encounter Wt Readings: Date: Wt: 11/24/2024 67.8 kg (149 lb 7.6 oz) Estimated body mass index is 29.35 kg/m as calculated from the following: Height as of 11/24/24: 152 cm (4' .84 ). Weight as of 11/24/24: 67.8 kg (149 lb 7.6 oz). Resting Metabolic Rate: 1269 Weight Change: -5.9kg (8%) x 1 mo, considered clinically significant Dosing Weight: 67.8 kg Estimated kilocalorie needs: 0913-9609 kilocalories determined by 25-30 kcal/kg Estimated protein needs: 81-102 grams determined by 1.2-1.5 g/kg Dosing weight Estimated fluid needs: ~6424-8650 milliliters based on 1 mL per kcal (unless otherwise indicated) Nutrition Focused Physical Exam: Unable to perform exam due to potential for patient discomfort (physical/emotional), will re-attempt during reassessment. Potential Signs of Inflammation: chronic condition Allergies: Patient has no known allergies. Medications: Current Outpatient Medications Medication Sig Dispense Refill oxyCODONE IR (ROXICODONE) 10 mg tab Take 1 tablet by mouth every 8 hours as needed for pain for up to 30 days. 90 tablet 0 ondansetron orally disintegrating (ZOFRAN ODT) 8 mg disintegrating tablet Dissolve 1 tablet by mouth every 8 hours as needed for nausea/vomiting. 90 tablet 2 sertraline (ZOLOFT) 50 mg tablet Take 1 tablet by mouth once daily. 90 tablet 0 OLANZapine (ZYPREXA) 10 mg tablet Take 1 tablet by mouth daily at bedtime. 90 tablet 0 lancets ([employer] DELICA PLUS LANCET) 33 gauge Check blood sugar every 8 hours while Tube feeding is running (0600, 1400, 2200) Patient instructed to record readings in the log book provided and take to all follow-up appointments, along with meter. 100 Each 0 insulin regular human (NOVOLIN R REGULAR U100 INSULIN) 100 unit/mL injection Inject subcutaneously sliding scale insulin three times daily at 6AM, 2PM and 10 PM with tube feeds: If Blood Glucose (mg/dL) is Scale 2 If Blood Glucose (mg/dL) is: Less than 110 Give 0 units 111-150 Give 0 units 151-200 Give 2 units 201-250 Give 4 units 251-300 Give 6 units 301-350 Give 8 units 351-400 Give 10 units >400 Give 10 units and Call physician TDD up to 30 units 10 mL 0 pantoprazole oral liquid 2 mg/mL (CPD) Take 20 mL by mouth two times a day. Take two times daily before meals at 6am and 4pm 1200 mL 0 gabapentin (NEURONTIN) 300 mg capsule Take 1 capsule in the morning and 2 capsules at night 90 capsule 0 fluconazole (DIFLUCAN) 200 mg tablet Take 1 tablet by mouth once daily. 30 tablet 0 acyclovir (ZOVIRAX) 400 mg tablet Take 1 tablet by mouth two times a day. 60 tablet 0 HYDROcodone-homatropine (HYDROMET) 5-1.5 mg/5 mL syrup Take 5 mL by mouth at bedtime as needed. 150 mL 0 propranolol (INDERAL) 20 mg/5 mL oral liquid Take 5 mL by mouth three times a day. nutritional supplement (OSMOLITE 1.2 YURI) 0.06 gram-1.2 kcal/mL liqd 55 mL/hr by FEEDING TUBE route continuous. Tube Feeding Formula Type: Osmolite 1.2 or equivalent Rate: 55 ml/hr x 24 hours (1320 ml total volume, 1584 kcals, 73 gm prot) Water Flush: Flush with 70 mL every 4 hours 64428 mL 0 sodium chloride 0.9 %, flush, (NORMAL SALINE FLUSH) syringe Inject 10 mL intravenously once daily. 600 mL 5 cetirizine (ZYRTEC) 10 mg tablet Take 1 tablet by mouth once daily. 30 tablet 3 glucagon (GVOKE HYPOPEN 1-PACK) 1 mg/0.2 mL auto-injector Inject 1 mg subcutaneously as needed. 0.4 mL 0 insulin syr/ndl U100 half nimesh (BD INSULIN SYRINGE, HALF UNIT,) 0.3 mL 31 gauge x 5/16 syrg Use with insulin injections three times daily 100 Each 0 Current Facility-Administered Medications Medication Dose Route Frequency Provider Last Rate Last Admin albuterol 2.5 mg /3 mL (0.083 %) 2.5 mg (PROVENTIL) 2.5 mg INHALATION q 1 MONTH Marcelina Rangel MD, PhD albuterol HFA 90 mcg/actuation 2 Puff (PROVENTIL HFA, VENTOLIN HFA) 2 Puff INHALATION q 1 MONTH Marcelina Rangel MD, PhD pentamidine 300 mg nebulizer solution (NEBUPENT) 300 mg INHALATION q 4 WEEKS Marcelina Rangel MD, PhD 300 mg at 11/25/24 1649 Need for Follow up: will continue to follow Referred by: anirudh VELASQUEZ Billing Type: Initial Assess/15 min 3 units Time Spent with Patient: 45 minutes Signed by: Radha Garcia RD, ENVIRONMENTAL SERVICES SPECIALIST, LD documented in this encounter [facility] 11-29-2024 Note [facility] 11-25-2024 Note [facility] 11-25-2024 Procedure note Patient arrived to receive aerosol Pentamidine breathing treatment. Identity was confirmed with 2 patient identifiers. Lungs quiet cta pretreatment. ra spo2 95, hr 95 Pentamadine was reconstituted with 6 cc sterile water. Patient given aerosol Pentamadine(Nebupent) 300mg via nebulizer w/ exhalation filter at 6l/m. Patient tolerated treatment well with no complaint of cough or dyspnea. Lung sounds unchanged post treatment. ra spo2 98, hr 96 Stewart Ennis RRT [facility] 11-25-2024 Procedure note Patient arrived to receive aerosol Pentamidine breathing treatment. Identity was confirmed with 2 patient identifiers. Lungs quiet cta pretreatment. ra spo2 95, hr 95 Pentamadine was reconstituted with 6 cc sterile water. Patient given aerosol Pentamadine(Nebupent) 300mg via nebulizer w/ exhalation filter at 6l/m. Patient tolerated treatment well with no complaint of cough or dyspnea. Lung sounds unchanged post treatment. ra spo2 98, hr 96 Stewart Ennis RRT documented in this encounter [facility] 11-25-2024 Telephone encounter Note Spoke with spouse and advised per Dr. Rangel patient needs to hold her MP6 and fluconazole until Friday due to elevated LFT's. Patient will have labs redrawn on Friday. Spouse verbalized understanding and agreeable to plan. [facility] 11-25-2024 Miscellaneous Notes Spoke with spouse and advised per Dr. Rangel patient needs to hold her MP6 and fluconazole until Friday due to elevated LFT's. Patient will have labs redrawn on Friday. Spouse verbalized understanding and agreeable to plan. documented in this encounter [facility] 11-24-2024 Instructions Shana Ferguson APRN.YEHUDA - 11/24/2024 10:27 AM EST Shana Ferguson CNP Department of Palliative and Supportive Care Palliative Care - Specialty services in symptom management and support For questions or prescription refills, call: [phone] Friday - Friday 9AM-5PM LORENA Candelaria, RN - 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 Please call 3-5 days in advance for medication refills Evenings, Weekends, Holidays: [phone] (ask for palliative medicine on-call provider) For appointments, cancellations or reschedule, call: [phone] documented in this encounter [facility] 11-24-2024 Note [facility] 11-24-2024 History of Present illness Narrative PALLIATIVE MEDICINE PROGRESS NOTE SERVICE DATE: 11/24/2024 CHIEF COMPLAINT: Neoplasm Related Pain PERTINENT MEDICAL HISTORY: Sonya Meyer is a 38 year old female with history of 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[facility]) Transferred to [facility] on 04/17/2024 after presenting to outside hospital with ~2 weeks of dyspnea and cough, followed by facial swelling. 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 Started Zyprexa for nausea and oxycodone for pain while hospitalized. Only using about one oxycodone a day. No constipation or diarrhea, and GERD improved with rate of tube feed slowed down. Nausea has improved with olanzapine and zofran, nausea is worse in am Anxiety has improved, but is still having difficulty sleeping, will sleep a few hours then wakes and is unable to go back to sleep. Pain improved with oxycodone, only uses at bedtime Sob at baseline, cough improved Modified ESAS ([place] Symptom Assessment Scale) Information Provided By: Patient and Family member Pain: Mild Nausea: Mild Loss of Appetite: Mild Constipation: None Shortness of Breath: Mild Drowsiness: None Tiredness: Moderate Depression: None Anxiety: Mild Objective ECOG PERFORMANCE STATUS: 3- Capable of only limited selfcare, confined to bed/chair > 50% of waking hrs. PHYSICAL EXAMINATION: Vital signs: BP 153/93 (BP Site: Left Leg, BP Position: Sitting) Pulse 115 Temp 36.8 C (98.3 F) (Oral) Resp 16 Ht 152 cm (4' 11.84 ) Wt 67.8 kg (149 lb 7.6 oz) LMP (LMP Unknown) SpO2 98% BMI 29.35 kg/m Last 1 Encounter Temp Readings: Date: Temp: Temp Src: 11/24/2024 36.8 C (98.3 F) Oral Last 1 Encounter Resp Readings: Date: Resp: 11/24/2024 16 Last 1 Encounter Pulse Readings: Date: Pulse: 11/24/2024 115 Last 1 Encounter BP Readings: Date: BP: 11/24/2024 153/93 Physical Exam Constitutional: Appearance: She is well-groomed. HENT: Head: Normocephalic and atraumatic. Jaw: There is normal jaw occlusion. Right Ear: Hearing and external ear normal. Left Ear: Hearing and external ear normal. Nose: Nose normal. Mouth/Throat: Lips: [place]. Mouth: Mucous membranes are moist. No oral lesions. Eyes: General: Lids are normal. Gaze aligned appropriately. Extraocular Movements: Extraocular movements intact. Conjunctiva/sclera: Conjunctivae normal. Neck: Thyroid: No thyroid mass. Cardiovascular: Rate and Rhythm: Normal rate and regular rhythm. Pulses: Normal pulses. Heart sounds: Normal heart sounds. Pulmonary: Effort: Pulmonary effort is normal. Abdominal: General: Abdomen is flat. Bowel sounds are normal. Palpations: Abdomen is soft. Musculoskeletal: General: No swelling, tenderness or deformity. Normal range of motion. Right shoulder: Normal. Left shoulder: Normal. Right upper arm: Normal. Left upper arm: Normal. Cervical back: Full passive range of motion without pain. Right lower leg: No edema. Left lower leg: No edema. Skin: General: Skin is warm and dry. Capillary Refill: Capillary refill takes less than 2 seconds. Findings: No rash. Neurological: General: No focal deficit present. Mental Status: She is alert and oriented to person, place, and time. Psychiatric: Attention and Perception: Attention normal. Mood and Affect: Mood normal. Speech: Speech normal. Behavior: Behavior normal. Behavior is cooperative. Thought Content: Thought content normal. Cognition and Memory: Cognition and memory normal. Judgment: Judgment normal. DATA: Diagnostic tests reviewed for today's visit: Most recent labs and imaging results. CrCl cannot be calculated (Unknown ideal weight.). Opioid Management: Yes Indication for Opioid Prescribing: Cancer related pain ORT-OUD Score: 1 A score of 3 or higher may indicate a higher risk for future development of aberrant drug related behavior or opioid use disorder. Informed consent for chronic opiate therapy obtained and written pain agreement: On file Naloxone offered?: Previously declined, after discussing risks and benefits Course of treatment, patient's response and adherence to the prescribed treatment plan reviewed, including non-pharmacological and non-opioid treatment modalities? Yes Have any complications or exacerbations of the underlying condition causing the pain been reviewed? Yes How much does pain impede patient s ability to engage in work or other purposeful activities, interfere with your activities of daily living, physical activity, or quality of your family life and social activities? Significantly Aberrancies in pain panel? No Any aberrant drug related behaviors since last visit? No Rationale for continuing opioid treatment: Improved comfort and function based on an ongoing functional assessment Benefits of Opioid Therapy outweigh risks: Yes Prescribed Morphine Equivalent Daily Dose (MEDD): Yes > 50 MEDD Yes, I am certified in Hospice and Palliative Care, Hematology, Medical Oncology or Pain Medicine OARRS Checked: PDMP website checked and validated. All prescriptions have been APPROPRIATELY filled. No suspicious activity was identified. 11/24/2024 by Shana Ferguson NP, SAIL REPAIR PERSON.DATA REVIEW SPECIALIST Assessment & Plan (Z51.5) Palliative care by specialist (primary encounter diagnosis) - Introduced philosophy of palliative medicine and hospice to family. - Discussed services offered by [facility] and hospice - Provided support to family - DNR-CCA, DNI --per primary: GOC discussions had with the patient and her . Discussed that unfortunately treatment is palliative in nature and not curative. Patient changed code status to DNR-CCA, DNI per patient request on 09/28. 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) Neoplasm related pain - oxycodone 10 mg po every 8 hours prn pain - Gabapentin 300 mg po am and 600 mg po a in pm -continue lidocaine patches to shoulder - stop [place] (Z78.9) On tube feeding diet - Ondansetron prn nausea - pantoprazole oral liquid 2 mg/mL (CPD) - consult to oncology nutrition (R45.89) Anxiety about health - olanzapine 15 mg po a HS - zoloft 50 mg po daily Nausea - continue Zyprexa 10 mg PO qHS - agree with Zofran 8mg ODT q8h PRN (R05,3) cough - hycodan at bedtime - mucinex 600 er bid Some elements copied from my note on 10/14/24, the elements have been updated and all reflect current decision making from today, 11/24/2024. Existence of Advance Directives: Yes, documentation or copy in medical record Next Visit: 3 Months in person Shana Ferguson NP, SAIL REPAIR PERSON.DATA REVIEW SPECIALIST November 24, 2024 10:04 AM I spent a total of 35 minutes on the date of the service which included preparing to see the patient, [id number] patient care, completing clinical documentation, obtaining and/or reviewing separately obtained history, performing a medically appropriate examination, counseling and educating the patient/family/caregiver, ordering medications, tests, or procedures, communicating with other HCPs (not separately reported), independently interpreting results (not separately reported), communicating results to the patient/family/caregiver, and care coordination (not separately reported). This note may have been partially generated using the [employer] voice recognition system. While every effort was made to correct voice recognition errors, kindly be aware that some errors may occasionally occur. documented in this encounter [facility] 11-23-2024 Laly Acosta APRN.YEHUDA - 11/23/2024 7:26 AM EST Continue Novolin insulin 3 times daily, 7 units at 6am, 11 units at 2pm and 7 units at 10pm Check your blood sugar daily Check you blood sugar 3 times daily 3-5 days prior to our next appoitnment If there are further changes in your tube feeding rate please let me know so I may adjust your insulin Have your labs done with your next lab draw Follow up in 3 months Thank you for seeing me today Laly Buchanan APRN.DATA REVIEW SPECIALIST documented in this encounter [facility] 11-23-2024 History of Present illness Narrative Endocrinology Virtual Visit This is a virtual visit using [employer] Zoom Video Visit. It required patient-provider interaction for the medical decision making as documented below. I have communicated my name and active licensure. The patient's identity and physical location were verified at the time of this visit. Either the patient or their legal entry level account representative has been informed of the risks and benefits of -- and alternatives to -- treatment through a remote evaluation and consents to proceed with the evaluation remotely. 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 Past medical history significant for uterine fibroids s/p hysterectomy, [employer]. Last HbA1c was 5.8 on 04/21/24. Will repeat A1c. Date of Diagnosis: during admission on 04/17/24 Last HbA1c: Hemoglobin A1C (%) Date Value 04/21/2024 5.8 Family history of diabetes includes Father Complications Microvascular: none Macrovascular: none Health Maintenance Topics Topic Date Due Diabetic Foot Exam Never done Prior DM Medications: None Current DM Related Medications: Current Medications 11/22/2024 DIABETES THERAPIES Medication Dosage Pharm Subclass insulin regular human (NOVOLIN R REGULAR U100 INSULIN) 100 unit/mL injection Inject subcutaneously sliding scale insulin three times daily at 6AM, 2PM and 10 PM with tube feeds: If Blood Glucose (mg/dL) is Scale 2 If Blood Glucose (mg/dL) is: Less than 110 Give 0 units 111-150 Give 0 units 151-200 Give 2 units 201-250 Give 4 units 251-300 Give 6 units 301-350 Give 8 units 351-400 Give 10 units >400 Give 10 units and Call physician TDD up to 30 units Human Insulins - Short Acting CARDIOVASCULAR Medication Dosage Pharm Subclass propranolol (INDERAL) 20 mg/5 mL oral liquid Take 5 mL by mouth three times a day. Beta Blockers Non-Cardiac Selective OTHER Medication Dosage Pharm Subclass acyclovir (ZOVIRAX) 400 mg tablet Take 1 tablet by mouth two times a day. Herpes Antiviral Agent - Purine Analogs Blood-Glucose Sensor (FREESTYLE VERENA 3 PLUS SENSOR) taran Apply new sensor every fifteen (15) days to upper arm. Medical Supplies and DME - Glucose Monitoring Test Supplies cetirizine (ZYRTEC) 10 mg tablet Take 1 tablet by mouth once daily. Antihistamines - 2nd Generation fluconazole (DIFLUCAN) 200 mg tablet Take 1 tablet by mouth once daily. Antifungal - Triazoles gabapentin (NEURONTIN) 300 mg capsule Take 1 capsule in the morning and 2 capsules at night Anticonvulsant - EDIL Analogs glucagon (GVOKE HYPOPEN 1-PACK) 1 mg/0.2 mL auto-injector Inject 1 mg subcutaneously as needed. Agents to treat Hypoglycemia (Hyperglycemics) HYDROcodone-homatropine (HYDROMET) 5-1.5 mg/5 mL syrup Take 5 mL by mouth at bedtime as needed. Opioid Antitussive-Anticholinergic Combinations insulin syr/ndl U100 half nimesh (BD INSULIN SYRINGE, HALF UNIT,) 0.3 mL 31 gauge x 5/16 syrg Use with insulin injections three times daily Medical Supplies and DME - Insulin [place]-Syringes and Admin Supplies lancets ([employer] DELICA PLUS LANCET) 33 gauge Check blood sugar every 8 hours while Tube feeding is running (0600, 1400, 2200) Patient instructed to record readings in the log book provided and take to all follow-up appointments, along with meter. Medical Supplies and DME - Glucose Monitoring Test Supplies nutritional supplement (OSMOLITE 1.2 YURI) 0.06 gram-1.2 kcal/mL liqd 55 mL/hr by FEEDING TUBE route continuous. Tube Feeding Formula Type: Osmolite 1.2 or equivalent Rate: 55 ml/hr x 24 hours (1320 ml total volume, 1584 kcals, 73 gm prot) Water Flush: Flush with 70 mL every 4 hours Nutritional Product - Nutritional Therapy OLANZapine (ZYPREXA) 10 mg tablet Take 1 tablet by mouth daily at bedtime. Antipsychotic -Atypical Dopamine-Serotonin Antag-Thienobenzodiazepines ondansetron orally disintegrating (ZOFRAN ODT) 8 mg disintegrating tablet Dissolve 1 tablet by mouth every 8 hours as needed for nausea/vomiting. Antiemetic - Selective Serotonin 5-HT3 Antagonists sodium chloride 0.9 %, flush, (NORMAL SALINE FLUSH) syringe Inject 10 mL intravenously once daily. Sodium Chloride Flushes Physical Activity: Regular Diet: No specific diet regimen SMBG Frequency of Monitoring: Three times a Day BG Values: Has not been consistent with checking her blood sugar 140's when she is checking around 2pm Hypoglycemia Frequency: None She is on TF 24 hours at 45cc/hr Past History, Medications, Allergies PAST MEDICAL HISTORY Diagnosis Date Hyperbilirubinemia 10/05/2024 -Tbili up trending over the past 24 hours with associated nausea >Fractionated Bili (10/05): Indirect 1.4, Direct 0.6 >CT A/P (10/05/24): Liver without any suspicious mass. Stable low-attenuation right hepatic lesion. Stable central prominence of the intra and extrahepatic bile ducts. Gallbladder is collapsed. 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 ALLERGIES No Known Allergies FAMILY HISTORY Problem Relation Age of Onset other (anemia) Mother Prostate Cancer Father 50 - 59 s/p prostatectomy Diabetes Father type I No Known Problems Maternal Grandmother No Known Problems Maternal Grandfather limited info Cancer Paternal Grandmother 87 unknown Dx No Known Problems Paternal Grandfather Cancer Paternal Uncle 50 - 59 lymph node, unknown pathology Diabetes Brother type I other (anemia) Half-sister Social History Tobacco Use Smoking status: Never Smokeless tobacco: Never Vaping Use Vaping status: Never Used Substance Use Topics Alcohol use: Not Currently Drug use: Not Currently Review of Systems REVIEW OF SYSTEMS GENERAL: No weight loss, malaise or fevers RESPIRATORY: Negative for cough, hemoptysis, wheezing, COPD, dyspnea or shortness of breath CARDIOVASCULAR: Negative for chest pain, leg swelling, hypertension, CHF or palpitations GI: No nausea, vomiting, or diarrhea : No history of dysuria, frequency or incontinence Physical examination Limited due to virtual visit Gen: NAD Head: atraumatic normocephalic Eyes: EOMI no scleral icterus Neck: no obvious goiter Pulm: resp effort is appropraite Ext: no swelling cyanosis Neuro: hearing and speech normal Previous Laboratory Results LABS Glucose (mg/dL) Date Value 10/15/2024 138 10/10/2024 71 10/08/2024 110 Potassium (mmol/L) Date Value 10/15/2024 4.4 Sodium (mmol/L) Date Value 10/15/2024 138 10/10/2024 143 10/08/2024 143 Chloride (mmol/L) Date Value 10/15/2024 103 10/10/2024 106 10/08/2024 108 CO2 (mmol/L) Date Value 10/15/2024 26 10/10/2024 26 10/08/2024 25 Creatinine (mg/dL) Date Value 10/15/2024 0.44 10/10/2024 0.46 10/08/2024 0.42 BUN (mg/dL) Date Value 10/15/2024 10 10/10/2024 13 10/08/2024 12 Anion Gap (mmol/L) Date Value 10/15/2024 9 10/10/2024 11 10/08/2024 10 Calcium, Total (mg/dL) Date Value 10/15/2024 8.7 10/10/2024 8.9 10/08/2024 8.4 Estimated Glomerular Filtration Rate (mL/min/1.73m ) Date Value 10/15/2024 126 10/10/2024 125 10/08/2024 128 ALT (U/L) Date Value 10/15/2024 24 10/10/2024 31 10/08/2024 28 No results found for: TSH , FREET4 Impression/Recommendations IMPRESSION Sonya Meyer is a 39 year old here for follow up for 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 Glycemic control: Target HbA1C is less than 7.0% per ADA guidelines. Plan Change Novolin to with TF (6am, 2pm, 10pm) Check your blood glucose 3 times per day and record data in logbook and bring to each visit We reviewed glucose targets as: Fasting 80-130, before meals 100-130, and bedtime 100-150 mg/dL. Call the office with blood sugars less than 70 Follow up with me in 3 months Patient to continue to follow up with his PCP and with other consultants regarding his other medical problems. The patient was reminded to check their blood glucose as directed and to record the data in a logbook. This patient was advised to bring their logbook to each office visit. I recommended at least 150 minutes per week of moderate physical activity, such as walking and to reduce carbohydrates and overall caloric intake. 2. Hypertension/BP control: BP goal for patients with diabetes is 130/80. -- This patient is at target on their current regimen 3. Lipids: Target LDL cholesterol in patients with diabetes is less than 100, less than 70 if patient has overt CVD. Several studies have shown cardiovascular benefits of statin therapy in all patients with diabetes over age 40 with at least 1 CVD risk factor. Total Cholesterol, Nonfasting Date Value Ref Range Status 04/21/2024 212 (H) <200 mg/dL Final Comment: <200 mg/dL, Desirable 200-239 mg/dL, Borderline high >239 mg/dL, High HDL Cholesterol, Nonfasting Date Value Ref Range Status 04/21/2024 82 >39 mg/dL Final Comment: 40-59 mg/dL, Acceptable >59 mg/dL, High: Negative risk factor for coronary heart disease <40 mg/dL, Low: Positive risk factor for coronary heart disease LDL Cholesterol, Nonfasting Date Value Ref Range Status 04/21/2024 113 (H) <100 mg/dL Final Comment: <100 mg/dL, Optimal 100-129 mg/dL, Near optimal/above optimal 130-159 mg/dL, Borderline high 160-189 mg/dL, High >189 mg/dL, Very high Secondary prevention optimal LDL Cholesterol levels are recommended to be < 70 mg/dL Triglycerides, Nonfasting Date Value Ref Range Status 04/21/2024 84 <150 mg/dL Final Comment: <150 mg/dL, Normal 150-199 mg/dL, Borderline high 200-499 mg/dL, High >499 mg/dL, Very high -- This patient is currently at target not on statin therapy. 4. Nephropathy screening: Annual measurement of urine albumin excretion is recommended in patients with diabetes. Protein, Urine (no units) Date Value 10/05/2024 1+ (A) Creatinine, Ur Random (UCRR) (mg/dL) Date Value 04/23/2024 64.2 -- This patient does not have microalbuminuria and is not on MICHELLE-I or ARB therapy. --ordered repeat lab today 5. Ophthalmology: Annual dilated eye exams are recommended for patients with type 1 and type 2 diabetes. -- This patient is up to date with their annual eye exam and has no history of retinopathy. -- Last seen March 2024 Laly Buchanan APRN.YEHUDA November 23, 2024 All documentation from previous visit of 08/16/2024 was copied and pasted, documentation has been reviewed and edited as necessary for today's visit. Medical Decision Making: Problems: Low: Stable chronic illness Data: Unique test result(s) reviewed: 3+ Unique test(s) ordered: 2 Risk: Moderate: Drug management Medical Decision Making Level: 4 - Moderate documented in this encounter [facility] 11-23-2024 Note [facility] 11-22-2024 Telephone encounter Note Summary: Verena Share Code Sent MC message to patient with share code for upcoming visit. YVROSE Olmstead [facility] 11-22-2024 Miscellaneous Notes Summary: Verena Share Code Sent MC message to patient with share code for upcoming visit. YVROSE Olmstead documented in this encounter [facility] 11-21-2024 Note [facility] 11-21-2024 History of Present illness Narrative Radiation Oncology - Follow Up Note VIRTUAL VISIT PROGRESS NOTE This is a virtual visit using MyChart video visit. It required patient-provider interaction for the medical decision making as documented below. PATIENT NAME: Sonya Meyer PATIENT Patient consents to this virtual visit REFERRING: Dr. Marcelina Rangel DIAGNOSIS: 38 year old female with a T cell lymphoblastic lymphoma presenting as a larger anterior mediastinal mass causing SVC syndrome. She completed palliative RT to 20Gy in 5 fractions. INTERVAL HISTORY: The patient presents for routine follow-up. She is doing well symptomatically. 10/28/24- CT chest 1. Bulky anterior/superior mediastinal adenopathy, improved from the prior examination of 10/05/2024. There has been significant improvement in previously identified SVC compression, as above. 2. 1.2 cm left apical groundglass opacity, a new finding, likely infectious/inflammatory in nature. Correlation with continued follow-up examinations is recommended ALLERGIES No Known Allergies gabapentin (NEURONTIN) 300 mg capsule^Take 1 capsule in the morning and 2 capsules at night^Disp: 90 capsule^Rfl: 0 fluconazole (DIFLUCAN) 200 mg tablet^Take 1 tablet by mouth once daily.^Disp: 30 tablet^Rfl: 0 OLANZapine (ZYPREXA) 10 mg tablet^Take 1 tablet by mouth daily at bedtime.^Disp: 30 tablet^Rfl: 0 acyclovir (ZOVIRAX) 400 mg tablet^Take 1 tablet by mouth two times a day.^Disp: 60 tablet^Rfl: 0 HYDROcodone-homatropine (HYDROMET) 5-1.5 mg/5 mL syrup^Take 5 mL by mouth at bedtime as needed.^Disp: 150 mL^Rfl: 0 propranolol (INDERAL) 20 mg/5 mL oral liquid^Take 5 mL by mouth three times a day.^Disp: ^Rfl: insulin regular human (NOVOLIN R REGULAR U100 INSULIN) 100 unit/mL injection^Inject subcutaneously sliding scale insulin three times daily at 6AM, 2PM and 10 PM with tube feeds: If Blood Glucose (mg/dL) is Scale 2 If Blood Glucose (mg/dL) is: Less than 110 Give 0 units 111-150 Give 0 units 151-200 Give 2 units 201-250 Give 4 units 251-300 Give 6 units 301-350 Give 8 units 351-400 Give 10 units >400 Give 10 units and Call physician TDD up to 30 units^Disp: 10 mL^Rfl: 0 nutritional supplement (OSMOLITE 1.2 YURI) 0.06 gram-1.2 kcal/mL liqd^55 mL/hr by FEEDING TUBE route continuous. Tube Feeding Formula Type: Osmolite 1.2 or equivalent Rate: 55 ml/hr x 24 hours (1320 ml total volume, 1584 kcals, 73 gm prot) Water Flush: Flush with 70 mL every 4 hours^Disp: 07075 mL^Rfl: 0 sodium chloride 0.9 %, flush, (NORMAL SALINE FLUSH) syringe^Inject 10 mL intravenously once daily.^Disp: 600 mL^Rfl: 5 ondansetron orally disintegrating (ZOFRAN ODT) 8 mg disintegrating tablet^Dissolve 1 tablet by mouth every 8 hours as needed for nausea/vomiting.^Disp: 90 tablet^Rfl: 2 Blood-Glucose Sensor (FREESTYLE VERENA 3 PLUS SENSOR) taran^Apply new sensor every fifteen (15) days to upper arm.^Disp: 6 Each^Rfl: 4 cetirizine (ZYRTEC) 10 mg tablet^Take 1 tablet by mouth once daily.^Disp: 30 tablet^Rfl: 3 lancets (YebhiTOUCH DELICA PLUS LANCET) 33 gauge^Check blood sugar every 8 hours while Tube feeding is running (0600, 1400, 2200) Patient instructed to record readings in the log book provided and take to all follow-up appointments, along with meter.^Disp: 100 Each^Rfl: 0 glucagon (GVOKE HYPOPEN 1-PACK) 1 mg/0.2 mL auto-injector^Inject 1 mg subcutaneously as needed.^Disp: 0.4 mL^Rfl: 0 insulin syr/ndl U100 half nimesh (BD INSULIN SYRINGE, HALF UNIT,) 0.3 mL 31 gauge x 5/16 syrg^Use with insulin injections three times daily^Disp: 100 Each^Rfl: 0 REVIEW OF SYSTEMS: A full review of systems was queried and negative aside from what is reported in HPI PHYSICAL EXAM: n/a ASSESSMENT/PLAN: CT chest on 10/28/24 shows Interval response to salvage radiation. She also feels less short of breath since RT. Continue to follow with medical oncology. Kobe Medellin MD documented in this encounter [facility] 11-18-2024 Telephone encounter Note Spoke with patient and she confirmed that she did receive her fluconazole and gabapentin from her [facility] pharmacy. Advised patient to contact pall med for her oxycodone Rx. Patient agreeable to plan. [facility] 11-18-2024 Miscellaneous Notes Spoke with patient and she confirmed that she did receive her fluconazole and gabapentin [facility]. Advised patient to contact pall med for her oxycodone Rx. Patient agreeable to plan. Patient has been identified by name and birthdate. Spouse of pt is calling because he stated that he spoke with pharmacy this morning 11/18 and they have not received script from our office. Requesting response back if team has additional follow-up questions for pt: [phone] Nova Chamberlain November 18, 2024 documented in this encounter [facility] 11-18-2024 Telephone encounter Note Patient has been identified by name and birthdate. Spouse of pt is calling because he stated that he spoke with pharmacy this morning 11/18 and they have not received script from our office. Requesting response back if team has additional follow-up questions for pt: [phone] Nova Chamberlain November 18, 2024 [facility] 11-18-2024 History of Present illness Narrative Radiology Service Progress Note DATE OF SERVICE: November 18, 2024 TIME: 6:59 AM PATIENT WEIGHT: 150LBS PATIENT IDENTITY VERIFICATION COMPLETED USING TWO (2) STANDARD IDENTIFIERS: Name and Date of confirmed by patient verbally and Name and Date of confirmed by identification band. FALL SCREENING: Has the patient had 2 falls in the last year or 1 fall with injury or currently using an Ambulatory Assistive Device (Walker, Cane, Wheelchair, Crutches, etc.)? Yes, Patient High Risk for Falls What interventions were put in place to prevent falls during this visit? Non-Skid Socks Used, Yellow Falls Risk Wristband Applied, and Instructed Patient to Call for Help if Needed PATIENT GENDER DATA: Assigned female at . status: : No status: NO. ALLERGIES: Reviewed and unchanged CONTRAST ALLERGY: No EXAM: MRI - CONTRAST TYPE: GROUP II IV SITE: Ambulatory: power injectable PICC line present to [facility], good blood return present, flushed with 20cc Normal Saline IV SITE APPEARANCE: Clean,Dry and Intact SIGNATURE: Mo Swanson RN PATIENT NAME: Sonya Meyer DATE: November 18, 2024 TIME: 6:59 AM documented in this encounter [facility] 11-18-2024 Note [facility] 11-15-2024 Telephone encounter Note Pt is completely out of Gabapentin [facility] 11-15-2024 Miscellaneous Notes Pt is completely out of Gabapentin documented in this encounter [facility] 11-09-2024 Telephone encounter Note Spoke with Theodora and confirmed our office received office note regarding 2nd opinion. Will speak with Dr. Rangel to see if patient can resume her treatment as scheduled and let Theodora/team at [facility] know if patient can resume treatment. Theodora agreeable to plan. [facility] 11-09-2024 Miscellaneous Notes Spoke with Theodora and confirmed our office received office note regarding 2nd opinion. Will speak with Dr. Rangel to see if patient can resume her treatment as scheduled and let Theodora/team at [facility] know if patient can resume treatment. Theodora agreeable to plan. Theodora from Dr. Erickson's office is calling Marcelina Rangel MD, PhD today regarding 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 - Other (Patient update) Patient has been identified by name and birthdate. Caller states she would like to give update to staff prior to patient's appointment this morning. Duration of symptoms: N/A Requesting response back: office [phone] Lesvia Kirk November 09, 2024 documented in this encounter [facility] 11-09-2024 Telephone encounter Note Theodora from Dr. Erickson's office is calling Marcelina Rangel MD, PhD today regarding 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 - Other (Patient update) Patient has been identified by name and birthdate. Caller states she would like to give update to staff prior to patient's appointment this morning. Duration of symptoms: N/A Requesting response back: office [phone] Lesvia Kirk November 09, 2024 [facility] 11-02-2024 Telephone encounter Note medical records faxed over to [facility] as requested. [facility] 11-02-2024 Miscellaneous Notes medical records faxed over to [facility] as requested. Sonya Meyer('s) spouse: Jose is calling Marcelina Rangel MD, PhD today regarding 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 - Other (DUSTIN) Jose is calling to request office send pt's Medical records/notes be faxed to [employer] [phone] ATTN- Radha . So that Pt can continue to receive disability payments. Patient has been identified by name and birthdate. Requesting response back: [phone] (home) [phone] (work) [phone] (cell) Malina Santo November 01, 2024 documented in this encounter [facility] 11-01-2024 Telephone encounter Note Spoke with Gio and advised per Dr. Rangel, treatment is on hold until patient has had 2nd opinion consult with provider. Will update Gio when needed. Gio agreeable to plan. [facility] 11-01-2024 Miscellaneous Notes Spoke with Gio and advised per Dr. Rangel, treatment is on hold until patient has had 2nd opinion consult with provider. Will update Gio when needed. Gio agreeable to plan. Nurse Gio Parker from Dr Erickson's Office is calling Marcelina Rangel MD, PhD today regarding Vincristine Gio has questions regarding the patient's use of Vincristine. Would like to speak with someone as soon as possible. Patient has been identified by name and birthdate Requesting response back: [phone] Winnie Lagunas November 01, 2024 documented in this encounter [facility] 11-01-2024 Telephone encounter Note Sonya Meyer('s) spouse: Jose is calling Marcelina Rangel MD, PhD today regarding 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 - Other (DUSTIN) Jose is calling to request office send pt's Medical records/notes be faxed to [employer] [phone] GIOVANNI Radha . So that Pt can continue to receive disability payments. Patient has been identified by name and birthdate. Requesting response back: [phone] (home) [phone] (work) [phone] (cell) Malina Santo November 01, 2024 [facility] 11-01-2024 Telephone encounter Note Nurse Gio Parker from Dr Erickson's Office is calling Marcelina Rangel MD, PhD today regarding Vincristine Gio has questions regarding the patient's use of Vincristine. Would like to speak with someone as soon as possible. Patient has been identified by name and birthdate Requesting response back: [phone] Winnie Lagunas November 01, 2024 [facility] 10-28-2024 History of Present illness Narrative Radiology Service Progress Note PATIENT NAME: Sonya Meyer DATE OF SERVICE: October 28, 2024 TIME: 1:32 PM PATIENT IDENTITY VERIFICATION COMPLETED USING TWO (2) IDENTIFIERS: Name and Date of confirmed by patient verbally. FALL SCREENING: Has the patient had 2 falls in the last year or 1 fall with injury or currently using an Ambulatory Assistive Device (Walker, Cane, Wheelchair, Crutches, etc.)? No PATIENT GENDER DATA: Assigned female at . status: : No status: NO. PATIENT RELEVANT IMPLANT DATA REVIEWED: Not Applicable PATIENT PRESENTS WITH AN IMPLANTABLE OR ATTACHED SAFETY AND SECURITY MANAGER: No RADIOLOGY DEPARTMENT: CT; Exam(s) Completed: Chest PERIPHERAL IV DATA: Not applicable SIGNED BY: RT Jessee(R) October 28, 2024 1:32 PM POWER picc Radiology Service Progress Note DATE OF SERVICE: October 28, 2024 TIME: 1:45 PM PATIENT WEIGHT: 160LBS PATIENT IDENTITY VERIFICATION COMPLETED USING TWO (2) STANDARD IDENTIFIERS: Name and Date of confirmed by patient verbally. FALL SCREENING: Has the patient had 2 falls in the last year or 1 fall with injury or currently using an Ambulatory Assistive Device (Walker, Cane, Wheelchair, Crutches, etc.)? No PATIENT GENDER DATA: Assigned female at . status: : No status: NO. ALLERGIES: Reviewed and unchanged CONTRAST ALLERGY: No EXAM: CT -CONTRAST INDUCED NEPHROPATHY RISK FACTORS: Not applicable CREATININE: Creatinine Date Value Ref Range Status 10/15/2024 0.44 (L) 0.58 - 0.96 mg/dL Final 10/10/2024 0.46 (L) 0.58 - 0.96 mg/dL Final 10/08/2024 0.42 (L) 0.58 - 0.96 mg/dL Final Estimated Glomerular Filtration Rate Date Value Ref Range Status 10/15/2024 126 >=60 mL/min/1.73m Final Comment: Estimated Glomerular Filtration Rate (eGFR) is calculated using the 2020 CKD-EPI creatinine equation. This equation utilizes serum creatinine, sex, and age as parameters. The creatinine assay has traceable calibration to isotope dilution-mass spectrometry. Refer to KDIGO guidelines for clinical interpretation. In patients with unstable renal function, e.g. those with acute kidney injury, the eGFR may not accurately reflect actual GFR. P.O.C.T. RESULTS: POC done: Yes, See Lab Tab October 28, 2024 TREATMENT: N/A IV SITE: Ambulatory: A power injectable PICC was accessed in the Right side. Blood Return, Flushed easily with normal saline, Good Blood Return Post Injection, Flushed with 20 cc saline followed by Heparin 500 units/5 cc, No Complications, and green cap placed post scan IV SITE APPEARANCE: Clean,Dry and Intact SIGNATURE: Ellen Winslow RN PATIENT NAME: Sonya Meyer DATE: October 28, 2024 TIME: 1:45 PM documented in this encounter [facility] 10-28-2024 Note [facility] 10-28-2024 Note [facility] 10-22-2024 Telephone encounter Note Message routed to Dr. Rangel and admin to schedule peer to peer, [facility] 10-22-2024 Miscellaneous Notes Message routed to Dr. Rangel and admin to schedule peer to peer, multimedia author from [facility] is calling Vignesh Chappell RN today regarding 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 - Other (Qdmi-[id number] Review) Patient has been identified by name and birthdate. Sheri called to inform RN that today was the last day to elect a peer-2-peer review between their reviewer and Dr. Rangel in regards to the denial of medications: Procrit and Nivestym. But, they are willing to extend the days for a few days, since BRIDGETTE Medellin informed them that Dr. Rangel is interested in the rujf-ma-[id number] review. She requested 2 hour time frame and 2 different dates, along with a call back number for their reviewer to reach Dr. Rangel, for the same. Requesting response back: [phone] (Sheri's cell) Helga España October 21, 2024 documented in this encounter [facility] 10-21-2024 Telephone encounter Note multimedia author from [facility] is calling Vignesh Chappell RN today regarding 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 - Other (Eexm-fs-Yuab Review) Patient has been identified by name and birthdate. Sheri called to inform RN that today was the last day to elect a peer-2-peer review between their reviewer and Dr. Rangel in regards to the denial of medications: Procrit and Nivestym. But, they are willing to extend the days for a few days, since BRIDGETTE Medellin informed them that Dr. Rangel is interested in the [id number] review. She requested 2 hour time frame and 2 different dates, along with a call back number for their reviewer to reach Dr. Rangel, for the same. Requesting response back: [phone] (Sheri's cell) Helga España October 21, 2024 [facility] 10-21-2024 Telephone encounter Note Spoke with spouse and advised would have Dr. Rangel sign new Lovenox Rx with new pharmacy. [facility] 10-21-2024 Miscellaneous Notes Spoke with spouse and advised would have Dr. Rangel sign new Lovenox Rx with new pharmacy. Sonya Meyer's spouse Jose is calling Marcelina Rangel MD, PhD today regarding 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 - Other (Lovenox- Pharmacy change) Patient has been identified by name and birthdate. Jose requested if we can change the pharmacy for Lovenox to the [facility] in [place], [place] because first there were some issues with their insurance in regards to the pharmacy, and then when he talked to the [facility], he was informed that they do not dispense this medication and he needs to reach out to the regular [facility] instead, which he did and confirmed they do have LOVENOX with several different doses. Also, Jose wasn't sure which dosage is required for the patient per Dr. Rangel, so he requested if we can reach out to the pharmacy first to confirm they do have the particular dosage we need, before sending in a script. [facility]; [address] [place] [address]; Jose can be reached at: [phone] Helga España October 20, 2024 documented in this encounter [facility] 10-20-2024 Telephone encounter Note Sonya Meyer's spouse Jose is calling Marcelina Rangel MD, PhD today regarding 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 - Other (Lovenox- Pharmacy change) Patient has been identified by name and birthdate. Jose requested if we can change the pharmacy for Lovenox to the [facility] in [place], [place] because first there were some issues with their insurance in regards to the pharmacy, and then when he talked to the [facility], he was informed that they do not dispense this medication and he needs to reach out to the regular [facility] instead, which he did and confirmed they do have LOVENOX with several different doses. Also, Jose wasn't sure which dosage is required for the patient per Dr. Rangel, so he requested if we can reach out to the pharmacy first to confirm they do have the particular dosage we need, before sending in a script. [facility]; [address] [place] [address]; Jose can be reached at: [phone] Helga España October 20, 2024 [facility] 10-15-2024 Note [facility] 10-15-2024 History of Present illness Narrative Additional intake questions: Has the patient had fever, nausea, vomiting, diarrhea, constipation, fatigue for > 1 week? Yes, nausea, vomiting, fatigue, headaches, and Provider Notified Does patient have any new or increased numbness or tingling of extremities? No Is patient interested in fertility information? No Does patient need any prescription refills? No Does patient have an advanced directive in place? 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 Presented with large anterior mediastinal mass (~14 cm) causing SVC syndrome and LIJ thrombus. No bone marrow or ADJUSTER LEADER involvement at diagnosis Current treatment - Cyclophosphamide, vincristine and prednisone (CVP) repeated every 21 days with intrathecal methotrexate and bortezomib C1D1 - 04/23/2024 C2D1 - 05/14/2024 C3D1 - 06/04/2024 C4D1 - 06/25/2024 C5D1 - 07/16/2024 C6D1 - 08/06/2024 IT Methotrexate administered on 05/03/2024, 05/10/2024, 06/08/2024, 06/25/2024, 10/07/2024. Subcutaneous bortezomib - on 04/30/2024, 05/14/2024, 05/19/2024 (Dced due to peripheral neuropathy) Radiation: 2000 cGy in 5 fractions at 400 cGy/fraction (09/30/2024 to 10/05/2024 ) Transfusion status - Jevoha's witness. No blood product administration. Interval History - - Admitted from 09/24/2024 to 10/11/2024 for syncope and weakness (she reported an episodes of fall mid September and went to [facility] but was transferred to [facility] on Sep)-- echo revealed pericardial effusion, CT chest revealed interval increase in size of the mediastinal mass DC summary: (Her radiation course was complicated by skin irritation and nausea. The nausea was controlled with Zofran and Zyprexa. The skin irritation improved with lotion. She also developed fevers during the hospitalization. An infectious work-up resulted positive for a tracy UTI that was treated with fluconazole. Repeat urine cultures were clear. She underwent a CT chest which showed bilateral opacities concerning for infection. She was treated with IV Zosyn. ID was consulted and helped guide antibiotic therapy. She also received an LP with IT chemo during the admission as previously scheduled. Her CSF was negative for blasts. Her lovenox was held on discharge due to nose bleeds. She was instructed not to resume until instructed to do so by her primary oncologist. ) Code status change: - DNR-CCA, DNI --per primary: GOC discussions had with the patient and her . Discussed that unfortunately treatment is palliative in nature and not curative. Patient changed code status to DNR-CCA, DNI per patient request on 09/28. Interbal Labs: OSH CSF flow cyto 10/07/2024: There are too few lymphocytes to accurate analyze the immunophenotypic evidence of involvement by a lymphoproliferative disorder or lymphoblastic leukemia/lymphoma in this limited sample. CBC: WBC 5.57<6, ANC 4.83<5.79, Lymphocytes 0.15<0.20, Hb 8.4<7.9 , plt 97<204. CMP: protein 6.4<6 ( chronic), elevated ALP 178<161 <144<117<124, normal AST ALT BMBx 08/17/2024: Chromosomal analysis: Ten metaphase cells were analyzed from the culture stimulated with ODN and ten metaphase cells were analyzed from the 24 hour unstimulated culture. Twenty cells analyzed showed a 46,XX karyotype. There was no significant numerical chromosome abnormality and no structural change detected within the limits of resolution. The analysis in April 2024 also showed a normal karyotype. Interval Scans CT chest 10/05: - Massive (20 x 8 cm maximally 10/05, was 10 x 15 x 14 cm in 09/25, 13 x 14 x 9 cm on 05/10) heterogeneous mass / prevascular lymphadenopathy with intrinsic areas of low-attenuation suggestive of necrotic lymphadenopathy consistent with known T-cell acute lymphoblastic lymphoma/leukemia - Small to moderate pericardial effusion - Caliber of the distal/lower SVC chambers down, probably related toextrinsic compression - Atelectatic consolidative opacities involving portions of the middle lobe, and left lower lobe - Small left pleural effusioN CT Abdomen and pelvis 10/05: - Stable exam. No acute abdominopelvic process or drainable fluid collection. No new or enlarging lymphadenopathy. CT Brain wo 10/02 - No acute findings. No acute infarction, intracranial hemorrhage or intracranial mass lesion. MRI brain 09/25; Stable focus of T2/FLAIR hyperintensity in the right periatrial white matter without susceptibility, enhancement, or significant mass effect, which is nonspecific, and may be due to prior infectious/inflammatory insult, but continued follow-up may be helpful. No acute intracranial process. No intracranial mass or abnormal intracranial enhancement otherwise DVT scan 10/03 : Neg for DVT OSH Echo: 09/28: Small pericardial effusion, EF 55 %, known pericardial effusion (in setting of a known anterior mediastinal mass) appears slightly smaller in size compared to prior study. IVC is plethoric and does not collapse with respiration, but there is no chamber inversion or collapse. No echocardiographic evidence of tamponade physiology. Impression: This is a 38-year-old lady who is Roman [employer] with early T-cell precursor lymphoblastic leukemia/lymphoma who is here for follow up. 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 She has completed six cycles of CVP with intrathecal methotrexate and bortezomib (three doses, discontinued due to peripheral neurotoxicity). She relapsed and received radiation: 2000 cGy in 5 fractions at 400 cGy/fraction (09/30/2024 to 10/05/2024 ). She has progressive disease. The plan of care based on today's assessment is as follows - - Due to Roman Catholic marta which precludes use of blood products, therapeutic options are very limited. This is incurable. To assess her response to mediastinal radiation she will receive a follow up CT Chest on 10/28/2024 at [place]. She will not be on any systemic therapy till then other than supportive care. - A follow up video/telephone visit after a week to assess clinical conditions. Will need in person follow-up ivisit after the CT scan for potential discussion of future treatments. - At patient's and her 's request we will send a request for second opinion with a doctor who has expertise on treating cancer in [place]. - Continue Acyclovir and Fluconazole prophylaxis 2) Steroid induced hyperglycemia - Continue with blood glucose assessment and insulin use to manage hypoglycemia when on steroids. 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 Lovenox was held during hospitalization due to nosebleed, but as now she is not complaining of bleeding from any source show will continue continue Lovenox 1 mg/kg BID. Patient informed she will start Lovenox today 4) Elevated transaminases - Liver MRI (05/06/24) showed diffuse hepatic steatosis. 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 No acute surgical intervention recommended as of now. Will hold off on PEG tube placement at this time, maintain corpak. As she has gotten 5 radiation therapy to her chest, right now she will not a candidate for another surgery, so at this point, she will be dependent on the tube feed. Will continue tube feed 6) Right Breast nodule: Underwent breast biopsy on 04/20/2024 demonstrating no blastoid features and consistent with benign fibroadenoma. No active intervention required. 7) New asymmetric (L>R) lower extremity swelling: - Previous DVT ultrasound during hospital admission on 10/03 revealed no DVT. But her asymmetric leg swelling is not improving. She does not have any leg pain or calf pain. We will start Lasix (will check if Lasix is crushable) for 3 days. She will let us know about any improvement with Lasix next Friday or Friday. Patient agreeable Clinical course, treatment dates, hospitalizations and response assessments - (a) Presenting symptoms - Transferred to [facility] on 04/17/2024 after presenting to outside hospital with ~2 weeks of dyspnea and cough, followed by facial swelling. 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 A bone marrow biopsy was performed on 04/19/2024 which showed no evidence of marrow involvement. NGS testing was performed and notable for a TP53 mutation. Given patient's synagogue preferences ([place]), she was started on cycle 1 CVP therapy on 04/23/2024. Her treatment course was complicated by acute hypoxic respiratory failure secondary to multifactorial issues (right lower lobe pulmonary embolism, left lower lobe pneumonia, superior vena cava syndrome), however was able to be weaned back down to room air. ID was consulted, and patient completed course of Zosyn from 04/19 to 04/26. Vascular medicine was consulted, and patient was started on therapeutic doses of Lovenox. While admitted, Ms. Meyer had repeat episodes of dysphagia, so a Corpak was placed and speech pathology was consulted. Ms. 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 Thoracic surgery was consulted and recommended no acute surgical intervention given large mediastinal mass with plan for outpatient follow-up post-discharge. Her course was also complicated by transaminitis for which she underwent a liver MRI which revealed diffuse hepatic steatosis and a contracted gallbladder with stones but without any suspicious liver lesions nor lymphoproliferative involvement of the abdomen. Hepatology was consulted and it was thought to be due to Injury from vincristine (vinca alkaloid) vs. Bortezomib vs. possible leukemia infiltrative process. Ms. Meyer was also noted to have steroid-induced hyperglycemia for which endo was consulted and recommended insulin at discharge. She was seen by a certified breastfeeding educator and educated on use with plans to follow up with Endocrinology outpatient post discharge. Prior to discharge, Ms. Meyer was educated on line care, TF care, and administration of Lovenox/Insulin. She was started on C2 of CVP on 05/14/2024 without complication and subsequently discharged on 05/17/2024. (b) Baseline diagnostic evaluations - Presented to [facility] ED on 04/07 with complaints of SOB and cough x2 weeks and new facial swelling. 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 CT Chest 04/18: Large anterior mediastinal mass reportedly related to known T-cell LBL. Attempted to get LN Biopsy slides from [facility]: called and spoke to path lab, and fax request sent. CT-guided core needle mediastinal biopsy (04/23/24) at [facility] Demonstrated fragmented cores of lymphoid tissue showing areas with significant crush artifact limiting morphologic evaluation. A relatively diffuse proliferation of intermediate to large lymphoid cells is seen with mildly irregular nuclear contours, finely dispersed chromatin, inconspicuous nucleoli and scant cytoplasm. Apoptotic bodies and mitoses are present. Immunohistochemical/in situ hybridization stains were performed on sections from block A1 for further evaluation of the atypical lymphoid proliferation. CD3 shows numerous positive cells throughout that coexpress CD34, NOTCH1, LMO2, CD5 (minor subset) and are negative for CD20, TdT, CD30, ALK1, CD2 and chromogenic in situ hybridization for EBV-encoded small RNA (JUANITO). Ki-67 proliferation fraction is difficult to interpret due to significant crush artifact, but appears high with many positive cells. Flow cytometric immunophenotypic studies demonstrate an abnormal T-cell population that is positive for CD3, CD4, CD7 with very dim to negative CD5 expression and monotypic TRBC1 expression. The abnormal T cells are negative for CD2 and CD8. NGS: TP53 mutation p.R248Q, [id number], c.743G>A, VAF: 93.8% RNA sequencing: No fusions detected. FLT3 Internal Tandem Duplication (ITD) mutation: Not Detected -S/P BMBx (04/19/24) :No e/o leukemia -S/P breast biopsy on 04/20 - no blastoid features; benign fibroadenoma -LP with IT chemo (05/03/24): Negative -LP with IT chemo (05/10/24) - Negative -Repeat CT Chest (05/10/2024) - Slightly decreased large anterior and superior mediastinal mass -PET/CT (05/12/2024) - anterior mediastinal mass w/ heterogenous uptake and areas suggestive of necrosis Review of systems other than interval history: Constitutional: No fever, chills, night sweats, anorexia or malaise. Eyes: No change in vision, blurriness, diplopia, redness, or irritation. ENT: No mouth sores or bleeding gums; no hoarseness of voice. . No epistaxis or other nasal problems. No changes in hearing, vertigo, or tinnitus. Respiratory: No coughing, wheezing, dyspnea at rest, exertional dyspnea, or hemoptysis. Cardiovascular: No anginal symptoms, palpitations, orthopnea, PND, syncopal events or presyncopal events. Gastrointestinal: Occasional nausea, No vomiting, heartburn or acid reflux, diarrhea, constipation or abdominal cramping. Bowel habit is unchanged; and no melena or hematochezia. On tube feeds (has NGT) Genitourinary: No urgency, frequency, dysuria, or hematuria. No hesitancy or decreased urinary stream, incomplete emptying or ncontinence. Musculoskeletal: Per HPI Skin: Abdominal skin has anticipatory rash from lovenox injections. Neurological: No syncope, near-syncope, or seizures or alteration in sensorium or motor strength. Psychiatric: Memory, short term & fdc intact; no disturbance in sleep pattern and denies symptoms of depression. Endocrine: Negative for temperature intolerance, unusual sweating, or symptoms of glucose intolerance. Hematologic/Lymphatic: Negative for prolonged bleeding, easy bruising, and swollen nodes. No lower extremity edema. Allergic/Immunologic: No itching, or jaundice. Past medical and surgical history: - Uterine fibroids s/p hysterectomy Family and social history: Paternal grandmother Stomach cancer Father's brother: Lump in neck, unclear cancer Father: Prostate cancer Allergies: None Physical Examination: Vitals: BP 138/80 Pulse (!) 127 Temp 37.2 C (98.9 F) (Oral) Resp 18 Wt 73.7 kg (162 lb 7.7 oz) LMP (LMP Unknown) SpO2 93% BMI 31.90 kg/m General: of very pleasant disposition, sitting comfortably in wheel chair, with NG tube and Tube-feeds running, in no acute distress, accompanied by her ECOG performance is 1 HEENT: EOMI; PERRL, no thrush or petechiae , has NG tube Neck: Supple, no thyromegaly, CV: Tachycardia, S1S2 normal, no M/R/G Chest: Clear to auscultation bilaterally without any wheezes, rales or rhonchi. Abd: soft, obese, NT/ND, + BS, no hepatosplenomegaly Ext: 1 + on the rt LE and 2+ on the LLE Neuro: No focal deficits LN: No supraclavicular, infraclavicular, axillary, epitrochlear or inguinal lymphadenopathy. Current Medications: Reviewed from [facility] and confirmed with the patient. Labs: Reviewed from [facility] and integrated in assessment and plan. Tristan Desai MD (click to page) PGY-2 Internal Medicine [facility] October 15, 2024 I have personally examined the patient, reviewed the findings and agree with the plan of care as detailed in the resident's note. Marcelina Rangel MD PhD MPH Associate Staff Hematologic Oncology and Blood Disorders Pager [phone] Date of service: 10/15/2024 I spent a total of 40 minutes on the date of the service which included preparing to see the patient, [id number] patient care, completing clinical documentation, obtaining and/or reviewing separately obtained history, performing a medically appropriate examination, counseling and educating the patient/family/caregiver, ordering medications, tests, or procedures, independently interpreting laboratory and imaging results (not separately reported), communicating results to the patient/family/caregiver, and care coordination (not separately reported). documented in this encounter [facility] 10-15-2024 Note [facility] 10-14-2024 Instructions Shana Ferguson APRN.YEHUDA - 10/14/2024 2:59 PM EST Shana Ferguson CNP Department of Palliative and Supportive Care Palliative Care - Specialty services in symptom management and support For questions or prescription refills, call: [phone] Friday - Friday 9AM-5PM LORENA Candelaria, RN - 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 Please call 3-5 days in advance for medication refills Evenings, Weekends, Holidays: [phone] (ask for palliative medicine on-call provider) For appointments, cancellations or reschedule, call: [phone] documented in this encounter [facility] 10-14-2024 Note [facility] 10-14-2024 History of Present illness Narrative PALLIATIVE MEDICINE PROGRESS NOTE SERVICE DATE: 10/14/2024 CHIEF COMPLAINT: Neoplasm Pain PERTINENT MEDICAL HISTORY: Sonya Meyer is a 38 year old female with history of 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HCC) Transferred to [facility] on 04/17/2024 after presenting to outside hospital with ~2 weeks of dyspnea and cough, followed by facial swelling. 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 Started Zyprexa for nausea and oxycodone for pain while hospitalized. Only using about one oxycodone a day. No constipation or diarrhea, and GERD improved with rate of tube feed slowed down. However since being home form the hospital she is experiencing continued nausea and thick mucous, she has a cough when she lies down which makes sleep difficult. Feels olanzapine helped, but still using zofran daily, she feels nasueasted again when zofran wears off, fearful to take any more, too may pills . Anxiety has improved Modified ESAS ([place] Symptom Assessment Scale) Information Provided By: Patient and Family member Pain: Mild Nausea: Moderate Loss of Appetite: Moderate Constipation: None Shortness of Breath: None Drowsiness: None Tiredness: Mild Depression: None Anxiety: Mild Objective ECOG PERFORMANCE STATUS: 2- Ambulatory and capable of all selfcare; unable to carry out work activities. Up and about > 50% of waking hrs. PHYSICAL EXAMINATION: Vital signs: LMP (LMP Unknown) Last 1 Encounter Temp Readings: Date: Temp: Temp Src: 09/23/2024 37.6 C (99.7 F) Oral Last 1 Encounter Resp Readings: Date: Resp: 09/23/2024 16 Last 1 Encounter Pulse Readings: Date: Pulse: 09/23/2024 93 Last 1 Encounter BP Readings: Date: BP: 09/23/2024 114/63 Physical Exam Constitutional: Appearance: She is well-groomed. HENT: Head: Normocephalic and atraumatic. Jaw: There is normal jaw occlusion. Right Ear: Hearing and external ear normal. Left Ear: Hearing and external ear normal. Nose: Nose normal. Mouth/Throat: Lips: [place]. Mouth: Mucous membranes are moist. No oral lesions. Eyes: General: Lids are normal. Gaze aligned appropriately. Extraocular Movements: Extraocular movements intact. Conjunctiva/sclera: Conjunctivae normal. Neck: Thyroid: No thyroid mass. Pulmonary: Effort: Pulmonary effort is normal. Musculoskeletal: General: No swelling, tenderness or deformity. Normal range of motion. Right shoulder: Normal. Left shoulder: Normal. Right upper arm: Normal. Left upper arm: Normal. Cervical back: Full passive range of motion without pain. Right lower leg: No edema. Left lower leg: No edema. Skin: General: Skin is warm and dry. Capillary Refill: Capillary refill takes less than 2 seconds. Findings: No rash. Neurological: General: No focal deficit present. Mental Status: She is alert and oriented to person, place, and time. Psychiatric: Attention and Perception: Attention normal. Mood and Affect: Mood normal. Speech: Speech normal. Behavior: Behavior normal. Behavior is cooperative. Thought Content: Thought content normal. Cognition and Memory: Cognition and memory normal. Judgment: Judgment normal. DATA: Diagnostic tests reviewed for today's visit: Most recent labs and imaging results. CrCl cannot be calculated (Unknown ideal weight.). Opioid Management: Yes Indication for Opioid Prescribing: Cancer related pain ORT-OUD Score: 1 A score of 3 or higher may indicate a higher risk for future development of aberrant drug related behavior or opioid use disorder. Informed consent for chronic opiate therapy obtained and written pain agreement: On file Naloxone offered?: Previously prescribed Course of treatment, patient's response and adherence to the prescribed treatment plan reviewed, including non-pharmacological and non-opioid treatment modalities? Yes Have any complications or exacerbations of the underlying condition causing the pain been reviewed? Yes How much does pain impede patient s ability to engage in work or other purposeful activities, interfere with your activities of daily living, physical activity, or quality of your family life and social activities? Significantly Aberrancies in pain panel? No Any aberrant drug related behaviors since last visit? No Rationale for continuing opioid treatment: Improved comfort and function based on an ongoing functional assessment Benefits of Opioid Therapy outweigh risks: Yes Prescribed Morphine Equivalent Daily Dose (MEDD): Yes > 50 MEDD Yes, I am certified in Hospice and Palliative Care, Hematology, Medical Oncology or Pain Medicine OARRS Checked: PDMP website checked and validated. All prescriptions have been APPROPRIATELY filled. No suspicious activity was identified. 10/14/2024 by Shana Ferguson NP, SAIL REPAIR PERSON.YEHUDA Assessment & Plan (Z51.5) Palliative care by specialist (primary encounter diagnosis) - Introduced philosophy of palliative medicine and hospice to family. - Discussed services offered by [facility] and hospice - Provided support to family - DNR-CCA, DNI --per primary: GOC discussions had with the patient and her . Discussed that unfortunately treatment is palliative in nature and not curative. Patient changed code status to DNR-CCA, DNI per patient request on 09/28. 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) Neoplasm related pain - oxycodone 5-10 mg po liquid every 4 hours prn pain - DULoxetine (CYMBALTA) 20 mg po at bedtime - Gabapentin 300 mg po am and 600 mg po a in pm -continue lidocaine patches to shoulder (Z78.9) On tube feeding diet - Ondansetron prn nausea - pantoprazole oral liquid 2 mg/mL (CPD), (R45.89) Anxiety about health - olanzapine 15 mg po a HS Nausea - continue Zyprexa 15 mg PO qHS - agree with Zofran 8mg ODT q8h PRN (R05,3) cough - hycodan at bedtime - mucinex 600 er bid Some elements copied from my note on 09/17/24, the elements have been updated and all reflect current decision making from today, 10/14/2024. Existence of Advance Directives: Yes, documentation or copy in medical record Next Visit: 6 Weeks in person Shana Ferguson NP, SAIL REPAIR PERSON.DATA REVIEW SPECIALIST October 14, 2024 2:05 PM I spent a total of 35 minutes on the date of the service which included preparing to see the patient, [id number] patient care, completing clinical documentation, obtaining and/or reviewing separately obtained history, performing a medically appropriate examination, counseling and educating the patient/family/caregiver, ordering medications, tests, or procedures, communicating with other HCPs (not separately reported), independently interpreting results (not separately reported), communicating results to the patient/family/caregiver, and care coordination (not separately reported). This note may have been partially generated using the [employer] voice recognition system. While every effort was made to correct voice recognition errors, kindly be aware that some errors may occasionally occur.[email or web address]. documented in this encounter [facility] 10-11-2024 Note [facility] 10-11-2024 Telephone encounter Note Returned call and left vm for Sheri and advised Dr. Rangel is still out of the office and will return on Friday. Office call back number provided. [facility] 10-11-2024 Miscellaneous Notes Returned call and left vm for Sheri and advised Dr. Rangel is still out of the office and will return on Friday. Office call back number provided. Sonya Meyer('s) Nurse Pillar Man Sheri: is calling Marcelina Rangel MD, PhD today regarding 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 - Other (Peer to peer) Sheri is calling to set up a peer to peer with care team. Sheri states [employer] wants to review if certain drugs being prescribed for patient are medically necessary. This admin provided fax for documentation can be received for case. Sheri would like a call back at [phone]. Patient has been identified by name and birthdate. Malina Santo October 07, 2025 documented in this encounter [facility] 10-10-2024 Note [facility] 10-10-2024 Note [facility] 10-09-2024 Note [facility] 10-08-2024 Note [facility] 10-07-2024 Telephone encounter Note Sonya Meyer('s) Nurse Pillar Man Sheri: is calling Marcelina Rangel MD, PhD today regarding 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 - Other (Peer to peer) Sheri is calling to set up a peer to peer with care team. Sheri states [employer] wants to review if certain drugs being prescribed for patient are medically necessary. This admin provided fax for documentation can be received for case. Sheri would like a call back at [phone]. Patient has been identified by name and birthdate. Malina Santo October [birth year], [birth year]24 [facility] 10-07-2024 Note [facility] 10-06-2024 Note [facility] 10-05-2024 Note [facility] 10-05-2024 Note [facility] 10-05-2024 Note [facility] 10-05-2024 History of Present illness Narrative SONYA MEYER [id number] 10/05/2024 [facility] Department of Radiation Oncology [facility] RADIATION ONCOLOGY: COMPLETION NOTE DATE OF SIMULATION: 09/27/2024 DATES OF TREATMENT: 09/30/2024 to 10/05/2024 TREATMENT MACHINE: TrueBeam1 , Counterceptsam4 TREATMENT AREA: mediastinum DIAGNOSIS: 38 year old female with a T cell lymphoblastic lymphoma presenting as a larger anterior mediastinal mass causing SVC syndrome CONCURRENT THERAPY:none DELIVERED DOSE: The mediastinum PTV received a total dose of 2000 cGy in 5 fractions at 400 cGy/fraction prescribed to PTV mean at 97.0% IDL using 10 MV photons with VMAT Coplanar technique; CBCT daily. For additional details regarding dose and treatment plan please contact the Radiation Oncologist ELAPSED DAYS: 5 TOLERANCE: At last on-treatment visit, her toxicity was summarized as: RESPONSE: To be assessed in outpatient clinic. REMARKS: Staff Physician Kobe Medellin M.D 0:18 PM Electronically Signed cc: Dr. Marcelina Rangel MD PhD documented in this encounter [facility] 10-05-2024 Note HNO ID: [id number] Author: KOBE MEDELLIN MD Service: Radiation Oncology Author Type: Physician Type: Progress Notes Filed: 10/13/2024 22:18 Note Text: SONYA MEYER [id number] 10/05/2024 [facility] Department of Radiation Oncology [facility] RADIATION ONCOLOGY: COMPLETION NOTE DATE OF SIMULATION: 09/27/2024 DATES OF TREATMENT: 09/30/2024 to 10/05/2024 TREATMENT MACHINE: Bella [employer] , Counterceptsam4 TREATMENT AREA: mediastinum DIAGNOSIS: 38 year old female with a T cell lymphoblastic lymphoma presenting as a larger anterior mediastinal mass causing SVC syndrome CONCURRENT THERAPY:none DELIVERED DOSE: The mediastinum PTV received a total dose of 2000 cGy in 5 fractions at 400 cGy/fraction prescribed to PTV mean at 97.0% IDL using 10 MV photons with VMAT Coplanar technique; CBCT daily. For additional details regarding dose and treatment plan please contact the Radiation Oncologist ELAPSED DAYS: 5 TOLERANCE: At last on-treatment visit, her toxicity was summarized as: RESPONSE: To be assessed in outpatient clinic. REMARKS: Staff Physician Kobe Medellin M.D 0:18 PM Electronically Signed cc: Dr. Marcelina Rangel MD PhD [facility] 10-04-2024 Note [facility] 10-03-2024 Note [facility] 10-02-2024 Note [facility] 10-01-2024 History of Present illness Narrative Radiation Oncology - On Treatment Review (OTR) Note PATIENT NAME: Sonya Meyer PATIENT DIAGNOSIS: T cell lymphoblastic lymphoma not having achieved remission PROTOCOL: no COURSE: palliative Current dose: 800 cGy in 2 fx Planned dose: 2000 cGy in 5 fx SUBJECTIVE: Sonya is here for her OTR visit with her family. She is tolerating RT well currently. Side effect management reviewed. Above completed by Delaney Haro RN PHYSICAL EXAM: Area Assessed: Chest KPS: 70 General Appearance: Alert and oriented. No acute distress. Chest: No respiratory distress. IMAGING/LAB RESULTS: None TOXICITY ASSESSMENT (CTC v4.0): Fatigue: grade 0 - No symptoms Weight loss: grade 0 - No weight loss Nausea:Grade 0 - No Symptoms Radiation Dermatitis:grade 0 - No symptoms Dysphagia: grade 0 - No symptoms Esophageal Pain: Grade 0 - No symptoms Dyspnea: grade 0 (No symptoms) STAFF NOTE: I have personally participated in the reyes components of the case and agree with the above findings: Treatment chart checked: YES Patient treatment site reviewed and verified: YES Setup images reviewed and current: YES ASSESSMENT/PLAN: Clinically stable. Toxicity within expected parameters. Continue radiation treatment as planned. Signed by: Jaclyn Aranda MD (Covering for Dr. Medellin) documented in this encounter [facility] 10-01-2024 Note [facility] 10-01-2024 Note [facility] 10-01-2024 Note HNO ID: [id number] Author: DAYAN SARAH RN Service: Nursing Author Type: Registered Nurse Type: Nursing Progress Note Filed: 10/01/2024 12:15 Note Text: Pt is off unit for radiation. [facility] 10-01-2024 Note [facility] 09-30-2024 Note [facility] 09-30-2024 Note [facility] 09-29-2024 Note [facility] 09-29-2024 Note [facility] 09-29-2024 History of Present illness Narrative [facility] Department of Hematologic Oncology and Blood Disorders PATIENT NAME: Sonya Meyer [facility] NO: [id number] DATE OF SERVICE: 09/06/2024 Diagnosis: 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 Presented with large anterior mediastinal mass (~14 cm) causing SVC syndrome and LIJ thrombus. No bone marrow or ADJUSTER LEADER involvement at diagnosis Current treatment - Cyclophosphamide, vincristine and prednisone (CVP) repeated every 21 days with intrathecal methotrexate and bortezomib C1D1 - 04/23/2024 C2D1 - 05/14/2024 C3D1 - 06/04/2024 C4D1 - 06/25/2024 C5D1 - 07/16/2024 IT Methotrexate administered on 05/03/2024, 05/10/2024, 06/08/2024 and 06/25/2024. Subcutaneous bortezomib - on 04/30/2024, 05/14/2024, 05/19/2024 Transfusion status - Jevoha's witness. No blood product administration. Interval History - Labs done at the [facility] from 07/15/2024 shows WBC at 7.4 (ANC - 5800, lymphocytes - 900), hemoglobin of 10.8 g/dl and platelets at 514,000. She denies any fever/chills or URI/UTI/GI symptoms. She reports stable pain in bilateral thighs (L>R) radiating to thighs, and sharp pain at level below bilateral knees. She takes gabapentin intake. She is continuing with her nasogastric tube feedings (55 ml/hr) and takes all her medications crushed through the nasogastric tube. FDG-PET scan now shows progressive disease in mediastinum with cardiac encroachment. Impression: This is a 38-year-old lady who is [employer] with early T-cell precursor lymphoblastic leukemia/lymphoma who is here for follow up. 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 She has completed four cycles of CVP with intrathecal methotrexate and bortezomib (three doses, discontinued due to peripheral neurotoxicity). She will start cycle 5 of CVP today. She will continue with intrathecal methotrexate administrations for a total of at least six doses (she has completed four so far). During her initial hospitalization, Rad Onc was consulted while to assess the role of XRT to mediastinal mass and consensus was not to pursue palliative XRT. She has progressive disease. The plan of care based on today's assessment is as follows - - Due to Roman [employer] marta which precludes use of blood products, therapeutic options are very limited. This is incurable. We will consult Radiation Oncology for palliative radiation with as long a durable remission as feasible. 2) Steroid induced hyperglycemia - Continue with blood glucose assessment and insulin use to manage hypoglycemia when on steroids. 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 Continue Lovenox 1 mg/kg BID. 4) Elevated transaminases - Liver MRI (05/06/24) showed diffuse hepatic steatosis. Await today's labs. 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 No acute surgical intervention recommended as of now. Will hold off on PEG tube placement at this time, maintain corpak. Once she is completed with six cycles of CVP, we will reconsult Thoracic Surgery for definitive surgery for TEF. 6) Right Breast nodule: Underwent breast biopsy on 04/20/2024 demonstrating no blastoid features and consistent with benign fibroadenoma. No active intervention required. Clinical course, treatment dates, hospitalizations and response assessments - (a) Presenting symptoms - Transferred to [facility] on 04/17/2024 after presenting to outside hospital with ~2 weeks of dyspnea and cough, followed by facial swelling. 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 A bone marrow biopsy was performed on 04/19/2024 which showed no evidence of marrow involvement. NGS testing was performed and notable for a TP53 mutation. Given patient's synagogue preferences ([employer]), she was started on cycle 1 CVP therapy on 04/23/2024. Her treatment course was complicated by acute hypoxic respiratory failure secondary to multifactorial issues (right lower lobe pulmonary embolism, left lower lobe pneumonia, superior vena cava syndrome), however was able to be weaned back down to room air. ID was consulted, and patient completed course of Zosyn from 04/19 to 04/26. Vascular medicine was consulted, and patient was started on therapeutic doses of Lovenox. While admitted, Ms. Meyer had repeat episodes of dysphagia, so a Corpak was placed and speech pathology was consulted. Ms. 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 Thoracic surgery was consulted and recommended no acute surgical intervention given large mediastinal mass with plan for outpatient follow-up post-discharge. Her course was also complicated by transaminitis for which she underwent a liver MRI which revealed diffuse hepatic steatosis and a contracted gallbladder with stones but without any suspicious liver lesions nor lymphoproliferative involvement of the abdomen. Hepatology was consulted and it was thought to be due to Injury from vincristine (vinca alkaloid) vs. Bortezomib vs. possible leukemia infiltrative process. Ms. Meyer was also noted to have steroid-induced hyperglycemia for which endo was consulted and recommended insulin at discharge. She was seen by a certified breastfeeding educator and educated on use with plans to follow up with Endocrinology outpatient post discharge. Prior to discharge, Ms. Meyer was educated on line care, TF care, and administration of Lovenox/Insulin. She was started on C2 of CVP on 05/14/2024 without complication and subsequently discharged on 05/17/2024. (b) Baseline diagnostic evaluations - Presented to [facility] ED on 04/07 with complaints of SOB and cough x2 weeks and new facial swelling. 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 CT Chest 04/18: Large anterior mediastinal mass reportedly related to known T-cell LBL. Attempted to get LN Biopsy slides from [facility]: called and spoke to path lab, and fax request sent. CT-guided core needle mediastinal biopsy (04/23/24) at [facility] Demonstrated fragmented cores of lymphoid tissue showing areas with significant crush artifact limiting morphologic evaluation. A relatively diffuse proliferation of intermediate to large lymphoid cells is seen with mildly irregular nuclear contours, finely dispersed chromatin, inconspicuous nucleoli and scant cytoplasm. Apoptotic bodies and mitoses are present. Immunohistochemical/in situ hybridization stains were performed on sections from block A1 for further evaluation of the atypical lymphoid proliferation. CD3 shows numerous positive cells throughout that coexpress CD34, NOTCH1, LMO2, CD5 (minor subset) and are negative for CD20, TdT, CD30, ALK1, CD2 and chromogenic in situ hybridization for EBV-encoded small RNA (JUANITO). Ki-67 proliferation fraction is difficult to interpret due to significant crush artifact, but appears high with many positive cells. Flow cytometric immunophenotypic studies demonstrate an abnormal T-cell population that is positive for CD3, CD4, CD7 with very dim to negative CD5 expression and monotypic TRBC1 expression. The abnormal T cells are negative for CD2 and CD8. NGS: TP53 mutation p.R248Q, [id number], c.743G>A, VAF: 93.8% RNA sequencing: No fusions detected. FLT3 Internal Tandem Duplication (ITD) mutation: Not Detected -S/P BMBx (04/19/24) :No e/o leukemia -S/P breast biopsy on 04/20 - no blastoid features; benign fibroadenoma -LP with IT chemo (05/03/24): Negative -LP with IT chemo (05/10/24) - Negative -Repeat CT Chest (05/10/2024) - Slightly decreased large anterior and superior mediastinal mass -PET/CT (05/12/2024) - anterior mediastinal mass w/ heterogenous uptake and areas suggestive of necrosis Review of systems other than interval history: Constitutional: No fever, chills, night sweats, anorexia or malaise. Eyes: No change in vision, blurriness, diplopia, redness, or irritation. ENT: No mouth sores or bleeding gums; no hoarseness of voice. . No epistaxis or other nasal problems. No changes in hearing, vertigo, or tinnitus. Respiratory: No coughing, wheezing, dyspnea at rest, exertional dyspnea, or hemoptysis. Cardiovascular: No anginal symptoms, palpitations, orthopnea, PND, syncopal events or presyncopal events. Gastrointestinal: Occasional nausea, No vomiting, heartburn or acid reflux, diarrhea, constipation or abdominal cramping. Bowel habit is unchanged; and no melena or hematochezia. Genitourinary: No urgency, frequency, dysuria, or hematuria. No hesitancy or decreased urinary stream, incomplete emptying or ncontinence. Musculoskeletal: Per HPI Skin: Abdominal skin has anticipatory rash from lovenox injections. Neurological: No syncope, near-syncope, or seizures or alteration in sensorium or motor strength. Psychiatric: Memory, short term & fdc intact; no disturbance in sleep pattern and denies symptoms of depression. Endocrine: Negative for temperature intolerance, unusual sweating, or symptoms of glucose intolerance. Hematologic/Lymphatic: Negative for prolonged bleeding, easy bruising, and swollen nodes. No lower extremity edema. Allergic/Immunologic: No itching, or jaundice. Past medical and surgical history: - Uterine fibroids s/p hysterectomy Family and social history: Paternal grandmother Stomach cancer Father's brother: Lump in neck, unclear cancer Father: Prostate cancer Allergies: None Physical Examination: Vitals: LMP (LMP Unknown) General: of very pleasant disposition, sitting comfortably in wheel chair, with NG tube and Tube-feeds running, in no acute distress, accompanied by her ECOG performance is 1 HEENT: EOMI; PERRL, no thrush or petechiae Neck: Supple, no thyromegaly, CV: Tachycardia, S1S2 normal, no M/R/G Chest: Clear to auscultation bilaterally without any wheezes, rales or rhonchi. Abd: soft, obese, NT/ND, + BS, no hepatosplenomegaly Ext: No edema Neuro: No focal deficits LN: No supraclavicular, infraclavicular, axillary, epitrochlear or inguinal lymphadenopathy. Current Medications: Reviewed from [facility] and confirmed with the patient. Labs: Reviewed from [facility] and integrated in assessment and plan. Marcelina Rangel MD PhD MPH Associate Staff Hematologic Oncology and Blood Disorders Pager [phone] Date of service:09/06/2024 I spent a total of 40 minutes on the date of the service which included preparing to see the patient, [id number] patient care, completing clinical documentation, obtaining and/or reviewing separately obtained history, performing a medically appropriate examination, counseling and educating the patient/family/caregiver, ordering medications, tests, or procedures, independently interpreting laboratory and imaging results (not separately reported), communicating results to the patient/family/caregiver, and care coordination (not separately reported). 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 Presented with large anterior mediastinal mass (~14 cm) causing SVC syndrome and LIJ thrombus. No bone marrow or ADJUSTER LEADER involvement at diagnosis Current treatment - Cyclophosphamide, vincristine and prednisone (CVP) repeated every 21 days with intrathecal methotrexate and bortezomib C1D1 - 04/23/2024 C2D1 - 05/14/2024 C3D1 - 06/04/2024 C4D1 - 06/25/2024 C5D1 - 07/16/2024 IT Methotrexate administered on 05/03/2024, 05/10/2024, 06/08/2024 and 06/25/2024. Subcutaneous bortezomib - on 04/30/2024, 05/14/2024, 05/19/2024 Transfusion status - Jevoha's witness. No blood product administration. Interval History - Labs done at the [facility] [place] from 07/15/2024 shows WBC at 7.4 (ANC - 5800, lymphocytes - 900), hemoglobin of 10.8 g/dl and platelets at 514,000. She denies any fever/chills or URI/UTI/GI symptoms. She reports stable pain in bilateral thighs (L>R) radiating to thighs, and sharp pain at level below bilateral knees. She takes gabapentin intake. She is continuing with her nasogastric tube feedings (55 ml/hr) and takes all her medications crushed through the nasogastric tube. Impression: This is a 38-year-old lady who is Roman [employer] with early T-cell precursor lymphoblastic leukemia/lymphoma who is here for follow up. 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 She has completed four cycles of CVP with intrathecal methotrexate and bortezomib (three doses, discontinued due to peripheral neurotoxicity). She will start cycle 5 of CVP today. She will continue with intrathecal methotrexate administrations for a total of at least six doses (she has completed four so far). During her initial hospitalization, Rad Onc was consulted while to assess the role of XRT to mediastinal mass and consensus was not to pursue palliative XRT. The plan of care based on today's assessment is as follows - - To complete six cycles of CVP with intrathecal methotrexate and then a whole body FDG-PET scan to evaluate treatment response. At that time we will also order a T-cell MRD on peripheral blood. We will not pursue bone marrow biopsy for treatment response evaluation as it was not involved at the time of diagnosis. - The treatment regimen is CVP cycles repeated every 21 days - cyclophosphamide (1000 mg/m2 as intravenous infusion once on day 1; vincristine 2 mg intravenous injection once on day 1; and prednisone 100 mg once daily on days 1-45 of every 21 days. The plan is to do the 6th cycle at Dr. Erickson's office. The sixth cycle of CVP begins on 08/05/2024. - For intrathecal chemotherapy with methotrexate we will arrange it here at the [facility]. - She also receives inhaled pentamidine for PJP prophylaxis on day 1 of her CVP cycle. - She will continue with prophylactic acyclovir and prophylactic levofloxacin (only if ANC is below 500) - All her medications are to be crushed and administered through nasogastric tube. - Check CBC with differential and CMP once a week and please use pediatric tubes for lab draws. - Transfuse leukoreduced and irradiated blood products - 1 unit of red blood cells for hemoglobin 7-8 g/dl and 1 unit of platelets for platelet counts equal to or less than 10,000. However, the number of red blood cells or platelet units to be transfused in cases of symptomatic anemia or active bleeding or parameters outside the mentioned range will be at the discretion of the treating physician. Premedications for transfusion include benadryl 25 mg and tylenol 650 mg through nasogastric tube. - Will order FDG-PET scan. 2) Steroid induced hyperglycemia - Continue with blood glucose assessment and insulin use to manage hypoglycemia when on steroids. 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 Continue Lovenox 1 mg/kg BID. 4) Elevated transaminases - Liver MRI (05/06/24) showed diffuse hepatic steatosis. Await today's labs. 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 No acute surgical intervention recommended as of now. Will hold off on PEG tube placement at this time, maintain corpak. Once she is completed with six cycles of CVP, we will reconsult Thoracic Surgery for definitive surgery for TEF. 6) Right Breast nodule: Underwent breast biopsy on 04/20/2024 demonstrating no blastoid features and consistent with benign fibroadenoma. No active intervention required. Clinical course, treatment dates, hospitalizations and response assessments - (a) Presenting symptoms - Transferred to [facility] on 04/17/2024 after presenting to outside hospital with ~2 weeks of dyspnea and cough, followed by facial swelling. 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 A bone marrow biopsy was performed on 04/19/2024 which showed no evidence of marrow involvement. NGS testing was performed and notable for a TP53 mutation. Given patient's synagogue preferences ([employer]), she was started on cycle 1 CVP therapy on 04/23/2024. Her treatment course was complicated by acute hypoxic respiratory failure secondary to multifactorial issues (right lower lobe pulmonary embolism, left lower lobe pneumonia, superior vena cava syndrome), however was able to be weaned back down to room air. ID was consulted, and patient completed course of Zosyn from 04/19 to 04/26. Vascular medicine was consulted, and patient was started on therapeutic doses of Lovenox. While admitted, Ms. Meyer had repeat episodes of dysphagia, so a Corpak was placed and speech pathology was consulted. Ms. 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 Thoracic surgery was consulted and recommended no acute surgical intervention given large mediastinal mass with plan for outpatient follow-up post-discharge. Her course was also complicated by transaminitis for which she underwent a liver MRI which revealed diffuse hepatic steatosis and a contracted gallbladder with stones but without any suspicious liver lesions nor lymphoproliferative involvement of the abdomen. Hepatology was consulted and it was thought to be due to Injury from vincristine (vinca alkaloid) vs. Bortezomib vs. possible leukemia infiltrative process. Ms. Meyer was also noted to have steroid-induced hyperglycemia for which endo was consulted and recommended insulin at discharge. She was seen by a certified breastfeeding educator and educated on use with plans to follow up with Endocrinology outpatient post discharge. Prior to discharge, Ms. Meyer was educated on line care, TF care, and administration of Lovenox/Insulin. She was started on C2 of CVP on 05/14/2024 without complication and subsequently discharged on 05/17/2024. (b) Baseline diagnostic evaluations - Presented to [facility] ED on 04/07 with complaints of SOB and cough x2 weeks and new facial swelling. 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 CT Chest 04/18: Large anterior mediastinal mass reportedly related to known T-cell LBL. Attempted to get LN Biopsy slides from [facility]: called and spoke to path lab, and fax request sent. CT-guided core needle mediastinal biopsy (04/23/24) at [facility]IC Demonstrated fragmented cores of lymphoid tissue showing areas with significant crush artifact limiting morphologic evaluation. A relatively diffuse proliferation of intermediate to large lymphoid cells is seen with mildly irregular nuclear contours, finely dispersed chromatin, inconspicuous nucleoli and scant cytoplasm. Apoptotic bodies and mitoses are present. Immunohistochemical/in situ hybridization stains were performed on sections from block A1 for further evaluation of the atypical lymphoid proliferation. CD3 shows numerous positive cells throughout that coexpress CD34, NOTCH1, LMO2, CD5 (minor subset) and are negative for CD20, TdT, CD30, ALK1, CD2 and chromogenic in situ hybridization for EBV-encoded small RNA (JUANITO). Ki-67 proliferation fraction is difficult to interpret due to significant crush artifact, but appears high with many positive cells. Flow cytometric immunophenotypic studies demonstrate an abnormal T-cell population that is positive for CD3, CD4, CD7 with very dim to negative CD5 expression and monotypic TRBC1 expression. The abnormal T cells are negative for CD2 and CD8. NGS: TP53 mutation p.R248Q, [id number], c.743G>A, VAF: 93.8% RNA sequencing: No fusions detected. FLT3 Internal Tandem Duplication (ITD) mutation: Not Detected -S/P BMBx (04/19/24) :No e/o leukemia -S/P breast biopsy on 04/20 - no blastoid features; benign fibroadenoma -LP with IT chemo (05/03/24): Negative -LP with IT chemo (05/10/24) - Negative -Repeat CT Chest (05/10/2024) - Slightly decreased large anterior and superior mediastinal mass -PET/CT (05/12/2024) - anterior mediastinal mass w/ heterogenous uptake and areas suggestive of necrosis Review of systems other than interval history: Constitutional: No fever, chills, night sweats, anorexia or malaise. Eyes: No change in vision, blurriness, diplopia, redness, or irritation. ENT: No mouth sores or bleeding gums; no hoarseness of voice. . No epistaxis or other nasal problems. No changes in hearing, vertigo, or tinnitus. Respiratory: No coughing, wheezing, dyspnea at rest, exertional dyspnea, or hemoptysis. Cardiovascular: No anginal symptoms, palpitations, orthopnea, PND, syncopal events or presyncopal events. Gastrointestinal: Occasional nausea, No vomiting, heartburn or acid reflux, diarrhea, constipation or abdominal cramping. Bowel habit is unchanged; and no melena or hematochezia. Genitourinary: No urgency, frequency, dysuria, or hematuria. No hesitancy or decreased urinary stream, incomplete emptying or ncontinence. Musculoskeletal: Per HPI Skin: Abdominal skin has anticipatory rash from lovenox injections. Neurological: No syncope, near-syncope, or seizures or alteration in sensorium or motor strength. 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 Endocrine: Negative for temperature intolerance, unusual sweating, or symptoms of glucose intolerance. Hematologic/Lymphatic: Negative for prolonged bleeding, easy bruising, and swollen nodes. No lower extremity edema. Allergic/Immunologic: No itching, or jaundice. Past medical and surgical history: - Uterine fibroids s/p hysterectomy Family and social history: Paternal grandmother Stomach cancer Father's brother: Lump in neck, unclear cancer Father: Prostate cancer Allergies: None Physical Examination: Vitals: BP 139/89 Pulse 100 Temp 36.7 C (98.1 F) (Oral) Resp 18 Wt 71.8 kg (158 lb 4.6 oz) LMP (LMP Unknown) SpO2 97% BMI 31.97 kg/m General: of very pleasant disposition, sitting comfortably in wheel chair, with NG tube and Tube-feeds running, in no acute distress, accompanied by her ECOG performance is 1 HEENT: EOMI; PERRL, no thrush or petechiae Neck: Supple, no thyromegaly, CV: Tachycardia, S1S2 normal, no M/R/G Chest: Clear to auscultation bilaterally without any wheezes, rales or rhonchi. Abd: soft, obese, NT/ND, + BS, no hepatosplenomegaly Ext: No edema Neuro: No focal deficits LN: No supraclavicular, infraclavicular, axillary, epitrochlear or inguinal lymphadenopathy. Current Medications: Reviewed from [facility] and confirmed with the patient. Labs: Reviewed from [facility] and integrated in assessment and plan. Marcelina Rangel MD PhD MPH Associate Staff Hematologic Oncology and Blood Disorders Pager [phone] Date of service:08/23/2024 I spent a total of 40 minutes on the date of the service which included preparing to see the patient, [id number] patient care, completing clinical documentation, obtaining and/or reviewing separately obtained history, performing a medically appropriate examination, counseling and educating the patient/family/caregiver, ordering medications, tests, or procedures, independently interpreting laboratory and imaging results (not separately reported), communicating results to the patient/family/caregiver, and care coordination (not separately reported). documented in this encounter [facility] 09-28-2024 Note [facility] 09-28-2024 Note [facility] 09-28-2024 Note [facility] 09-27-2024 Note [facility] 09-27-2024 Note [facility] 09-27-2024 Note [facility] 09-27-2024 History of Present illness Narrative SONYA MEYER [id number] 09/27/2024 [facility] Department of Radiation Oncology [facility] RADIATION ONCOLOGY SIMULATION NOTE DATE OF SIMULATION: 09/27/2024 MACHINE: CT Simulator DIAGNOSIS: T cell lymphoblastic lymphoma AREA:mediastinum PATIENT POSITION: Supine. CONTRAST: 100CC OMNIPAQUE IV PROTOCOL: None BLOCKS: Custom blocks are necessary to develop an optimal plan. FIXATION DEVICE: In order to achieve accurate and reproducible treatments, the patient is immobilized. PROCEDURE: A time-out was conducted and recorded by the therapist. Patient was simulated on the CT scanner for external beam radiation therapy. Treatment site was marked by the simulation therapist. ASSESSMENT/PLAN: Patient tolerated simulation procedure well. Treatments will be initiated after treatment planning. The patient will be scheduled for a verification simulation on the treatment machine to ensure proper set-up and field arrangement is correct prior to the first treatment of primary and any boost youssef if applicable. Electronically Signed Yumi Chacon M.D. 43:14 PM documented in this encounter [facility] 09-27-2024 History of Present illness Narrative SONYA MEYER [id number] 09/27/2024 [facility] Department of Radiation Oncology Treatment Planning Note For reasons stated in the consult note, Sonya Meyer is a candidate for radiation therapy. Based on review and interpretation of the relevant diagnostic studies together with the exam findings, Sonya Meyer was simulated on 09/27/2024 at which time the target volume and/or requisite youssef were delineated, as indicated in the simulation note, to be treated according to the prescription. An ITV was created from all the phases of respiratory motion captured by the 4DCT image sets. Motion management allowed for design of patient specific planning target volume and reduced the radiation exposure to normal tissues. After reviewing the treatment plan with dosimetry, the plan was approved to deliver the prescribed course of radiation to the target area to allow for the best isodose distribution, treating to the 97% isodose line with 10MV and 2 youssef. Custom MLCs for IMRT were the treatment devices used to shape/modify the beams. IMRT planning was used because it best met the dose/volume constraints for the organs at risk for this patient, better than what could be achieved using conventional or 3D planning. The specific dose requirements for the PTV, organs at risk and dose-volume histograms are contained in this treatment plan and/or elsewhere in the medical record. A completed summary of this plan dated 09/28/2024 incorporated herein by reference includes dose, beam arrangements, energy, blocking, isodose distribution, and/or ports and DVH. Electronically Signed Kobe Medellin M.D. 1:11 AM documented in this encounter [facility] 09-27-2024 Note HNO ID: [id number] Author: KOBE MEDELLIN MD Service: Radiation Oncology Author Type: Physician Type: Progress Notes Filed: 10/01/2024 11:11 Note Text: SONYA MEYER [id number] 09/27/2024 [facility] Department of Radiation Oncology Treatment Planning Note For reasons stated in the consult note, Sonya Meyer is a candidate for radiation therapy. Based on review and interpretation of the relevant diagnostic studies together with the exam findings, Sonya Meyer was simulated on 09/27/2024 at which time the target volume and/or requisite youssef were delineated, as indicated in the simulation note, to be treated according to the prescription. An ITV was created from all the phases of respiratory motion captured by the 4DCT image sets. Motion management allowed for design of patient specific planning target volume and reduced the radiation exposure to normal tissues. After reviewing the treatment plan with dosimetry, the plan was approved to deliver the prescribed course of radiation to the target area to allow for the best isodose distribution, treating to the 97% isodose line with 10MV and 2 youssef. Custom MLCs for IMRT were the treatment devices used to shape/modify the beams. IMRT planning was used because it best met the dose/volume constraints for the organs at risk for this patient, better than what could be achieved using conventional or 3D planning. The specific dose requirements for the PTV, organs at risk and dose-volume histograms are contained in this treatment plan and/or elsewhere in the medical record. A completed summary of this plan dated 09/28/2024 incorporated herein by reference includes dose, beam arrangements, energy, blocking, isodose distribution, and/or ports and DVH. Electronically Signed Kobe Medellin M.D. 1:[address] [facility] 09-24-2024 Telephone encounter Note Spoke with and advised against him bringing patient to [facility] in personal vehicle. Advised that patient is not stable enough and she be monitored closely. Spouse agreed and will wait to have patient transported via ambulance. [facility] 09-24-2024 Miscellaneous Notes Spoke with and advised against him bringing patient to [facility] in personal vehicle. Advised that patient is not stable enough and she be monitored closely. Spouse agreed and will wait to have patient transported via ambulance. Sonya Meyer('s) spouse is calling Marcelina Rangel MD, PhD today regarding 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 - Other (Hospital transfer ) Patient was advised by current providers that they dont have an ambulance to take the patient from her current location to [facility]. He was told if he wanted to drive his and arrive around 2pm that he would have sign a waiver that he was going against doctors orders, even if she would receive an oxygen tank. He wanted to confirm if the room could be ready earlier and what the clinical staff would recommend to do in this circumstance. Patient has been identified by name and birthdate. Duration of symptoms: N/A Requesting response back: call on cell [phone] (home) [phone] (work) [phone] (cell) Denia Fuller V September 24, 2024 documented in this encounter [facility] 09-24-2024 Telephone encounter Note Sonya Meyer('s) spouse is calling Marcelina Rangel MD, PhD today regarding 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 - Other (Hospital transfer ) Patient was advised by current providers that they dont have an ambulance to take the patient from her current location to [facility]. He was told if he wanted to drive his and arrive around 2pm that he would have sign a waiver that he was going against doctors orders, even if she would receive an oxygen tank. He wanted to confirm if the room could be ready earlier and what the clinical staff would recommend to do in this circumstance. Patient has been identified by name and birthdate. Duration of symptoms: N/A Requesting response back: call on cell [phone] (home) [phone] (work) [phone] (cell) Denia Fuller V September 24, 2024 [facility] 09-24-2024 History of Present illness Narrative Radiology Service Progress Note PATIENT NAME: Sonya Meyer DATE OF SERVICE: September 25, 2024 TIME: 5:15 AM PATIENT IDENTITY VERIFICATION COMPLETED USING TWO (2) IDENTIFIERS: Name and Date of confirmed by patient verbally and Name and Date of confirmed by identification band. FALL SCREENING: Has the patient had 2 falls in the last year or 1 fall with injury or currently using an Ambulatory Assistive Device (Walker, Cane, Wheelchair, Crutches, etc.)? No PATIENT GENDER DATA: Female. status: : No status: NO. PATIENT RELEVANT IMPLANT DATA REVIEWED: Yes PATIENT PRESENTS WITH AN IMPLANTABLE OR ATTACHED SAFETY AND SECURITY MANAGER: No RADIOLOGY DEPARTMENT: MR; Exam(s) Completed: Head: Routine Brain with Perfusion PERIPHERAL IV DATA: Site assessment: Clean,Dry and Intact, Site disposition Discontinued SIGNED BY: JACOBO Garrison) September 25, 2024 5:15 AM documented in this encounter [facility] 09-24-2024 Note HNO ID: [id number] Author: BOB BARRETO RT (R) Service: Radiology Author Type: Technologist Type: Progress Notes Filed: 09/25/2024 05:16 Note Text: Radiology Service Progress Note PATIENT NAME: Sonya Meyer DATE OF SERVICE: September 25, 2024 TIME: 5:15 AM PATIENT IDENTITY VERIFICATION COMPLETED USING TWO (2) IDENTIFIERS: Name and Date of confirmed by patient verbally and Name and Date of confirmed by identification band. FALL SCREENING: Has the patient had 2 falls in the last year or 1 fall with injury or currently using an Ambulatory Assistive Device (Walker, Cane, Wheelchair, Crutches, etc.)? No PATIENT GENDER DATA: Female. status: : No status: NO. PATIENT RELEVANT IMPLANT DATA REVIEWED: Yes PATIENT PRESENTS WITH AN IMPLANTABLE OR ATTACHED SAFETY AND SECURITY MANAGER: No RADIOLOGY DEPARTMENT: MR; Exam(s) Completed: Head: Routine Brain with Perfusion PERIPHERAL IV DATA: Site assessment: Clean,Dry and Intact, Site disposition Discontinued SIGNED BY: RT Bladimir(Manolo) September 25, 2024 5:15 AM [facility] 09-23-2024 Telephone encounter Note Images from the original note were not included. [facility] Department of Hematology and Oncology After Hours Documentation September 23, 2024 , 5:51 PM Primary Plant Protection Superintendent/Oncologist: Dr. Rangel Heme/onc Diagnosis: ALL I was paged by [facility] ER to discuss the presentation of Sonya Meyer. She came in today with headaches and fall and her work up showed that her mediastinal mass has grown in size and is now compressing the SVC with some concern about RA/RV invasion. They requested a transfer to [facility] for inhouse radiation. I asked them to call the transfer line to initiate a request and then discuss with the leukemia staff on service. Syed Christy MD Hematology and Oncology Fellow On-call pager: [phone] [facility] Work Phone: 09-23-2024 Miscellaneous Notes Images from the original note were not included. [facility] Department of Hematology and Oncology After Hours Documentation September 23, 2024 , 5:51 PM Primary Plant Protection Superintendent/Oncologist: Dr. Rangel Heme/onc Diagnosis: ALL I was paged by [facility] ER to discuss the presentation of Sonya Meyer. She came in today with headaches and fall and her work up showed that her mediastinal mass has grown in size and is now compressing the SVC with some concern about RA/RV invasion. They requested a transfer to [facility] for inhouse radiation. I asked them to call the transfer line to initiate a request and then discuss with the leukemia staff on service. Syed Christy MD Hematology and Oncology Fellow On-call pager: [phone] documented in this encounter [facility] 09-23-2024 Telephone encounter Note Spoke with patient's and he reported they are currently at the ED at [facility] [place]. reported patient was going to the bathroom around 11 am this morning and fell off the toilet, however she did not hit her head. also reported that patient is c/o an extreme headache, sweating, nausea, and has loss the ability to stand or walk. Per ED doctor plans to reach out to our office for more guidance. Advised to keep our office updated. Covering physician updated. agreeable to plan. [facility] 09-23-2024 Miscellaneous Notes Spoke with patient's and he reported they are currently at the ED at [facility] [place]. reported patient was going to the bathroom around 11 am this morning and fell off the toilet, however she did not hit her head. also reported that patient is c/o an extreme headache, sweating, nausea, and has loss the ability to stand or walk. Per ED doctor plans to reach out to our office for more guidance. Advised to keep our office updated. Covering physician updated. agreeable to plan. Sonya Meyer('s) spouse: Jose is calling Marcelina Rangel MD, PhD today regarding 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 - Other (ER Visit) Patient has been identified by name and birthdate. Patient's Jose called to make the care team aware that patient is going tp the ED. Patient is unable to stand and not feeling well. Jose can be reached at [phone]. Melissa Neal September 23, 2024 documented in this encounter [facility] 09-23-2024 Telephone encounter Note Sonya Meyer('s) spouse: Jose is calling Marcelina Rangel MD, PhD today regarding 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 - Other (ER Visit) Patient has been identified by name and birthdate. Patient's Jose called to make the care team aware that patient is going tp the ED. Patient is unable to stand and not feeling well. Jose can be reached at [phone]. Melissa Neal September 23, 2024 [facility] 09-22-2024 Telephone encounter Note Palliative Medicine at Home Care Coordination New Patient Note Nurse introduced self and role of 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 in Palliative Medicine. Reviewed contact sheet information and on-call process. Nurse educated patient on medication refill process. Nurse encouraged patient to call with any questions/concerns/symptom related issues. [facility] Work Phone: 09-22-2024 Miscellaneous Notes Palliative Medicine at Home Care Coordination New Patient Note Nurse introduced self and role of 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 in Palliative Medicine. Reviewed contact sheet information and on-call process. Nurse educated patient on medication refill process. Nurse encouraged patient to call with any questions/concerns/symptom related issues. documented in this encounter [facility] 09-20-2024 History of Present illness Narrative Radiation Oncology - New Patient/Consult Note PATIENT NAME: Sonya Meyer PATIENT REQUESTING PROVIDER: Marcelina Rangel MD PhD. 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 Final recommendations will be communicated back to the requesting physician by way of the shared medical record, or letter to requesting physician via US mail. Ms. Meyer was diagnosed with T cell lymphoma in April 2024 after presenting with large anterior mediastinal mass (~14 cm) causing SVC syndrome and LIJ thrombus. She established care with Dr. Marcelina Rangel an initiated treatment with R-CVP (Cyclophosphamide, vincristine and prednisone) every 21 days with intrathecal methotrexate and subcutaneous bortezomib. C5D1 - 07/16/2024 End of tx PET/CT on 08/27/24 showed a mixed response with decrease of size in the anterior mediastinal Mass but interval progression with expansion into the right pericardial area with increased FDG uptake.Subcutaneous FDG avid lesions in the abdominal wall increased in uptake as compared to prior. 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 She is currently on monthly vincristine and steroids. Last vincristine was on 09/07, with next dose planned for 10/05. She has fatigue and started to experienced intermittent choking since last Friday, improved with steroids ALLERGIES No Known Allergies PAST MEDICAL HISTORY Diagnosis Date Mediastinal mass Pulmonary embolism (HCC) TLL (T-cell lymphoblastic lymphoma) (HCC) Tracheo-esophageal fistula (HCC) status: Surgically post-menopausal. Previous RT? Where? no Pacemaker? no No past surgical history on file. FAMILY HISTORY Problem Relation Age of Onset other (anemia) Mother Prostate Cancer Father 50 - 59 s/p prostatectomy Diabetes Father type I No Known Problems Maternal Grandmother No Known Problems Maternal Grandfather limited info Cancer Paternal Grandmother 87 unknown Dx No Known Problems Paternal Grandfather Cancer Paternal Uncle 50 - 59 lymph node, unknown pathology Diabetes Brother type I other (anemia) Half-sister Social History Tobacco Use Smoking status: Never Smokeless tobacco: Never Substance Use Topics Alcohol use: Not Currently Drug use: Not Currently COMPLETE REVIEW OF SYSTEMS: A full review of systems was queried and negative aside from what is reported in HPI PHYSICAL EXAM: VS: BP 154/90 Pulse 81 Temp 37.1 C (98.7 F) (Oral) Resp 16 Wt 72.8 kg (160 lb 8 oz) LMP (LMP Unknown) SpO2 96% BMI 32.40 kg/m KPS: 70 General Appearance: Alert and oriented. No acute distress. HEENT: NCAT. Sclera anicteric. PERRL. EOMI. Neck: Normal ROM. No palpable cervical or supraclavicular adenopathy. Chest: No respiratory distress. Lungs clear to auscultation bilaterally. Heart: Regular rate and rhythm. Lymphatics: No palpable supraclavicular or axillary lymphadenopathy. 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 I reviewed the case with Dr. Rangel. We recommend radiation to the mediastinal mass given the lack of effective non myeloablative systemic therapy options that would be safe with a patient who is unable to receive blood transfusions (Jehova's witness). Given involvement of the bone marrow, the nature/intent of the radiation therapy would be strictly palliative as opposed to salvage or consolidative. Given the bulk of the disease, we initially favored aggressive palliation with a 15 fraction regimen. Unfortunately, since the initial consult, she was admitted for a syncopal episode on 09/24/24 and found to have significant progression of her mediastinal mass. Due to the urgency to treat and worsening prognosis, we will switch the plan to a 20Gy in 5 fraction regimen with the plan to treat through the weekend. Rationale, risks, expectations and benefits of palliative RT were reviewed with the patient. Informed consent has been obtained. Signed by: Kobe Medellin MD Staff Radiation Oncologist [facility] cc: MD Marcelina Marroquin MD PhD I spent a total of 80 minutes on the date of the service which included preparing to see the patient, [id number] patient care, completing clinical documentation, obtaining and/or reviewing separately obtained history, performing a medically appropriate examination, and counseling and educating the patient/family/caregiver. documented in this encounter [facility] 09-20-2024 Telephone encounter Note [facility] received an eRx for pantoprazole oral liquid 2 mg/mL (CPD) compound. Unfortunately, our pharmacy is not equipped for compounded medications. Currently, our compound products are handled by [facility]. Please send new eRx to [facility] No further action will be taken by [facility]. Thank you, [facility] [phone] (phone) [phone] (fax) [facility] 09-20-2024 Miscellaneous Notes [facility] received an eRx for pantoprazole oral liquid 2 mg/mL (CPD) compound. Unfortunately, our pharmacy is not equipped for compounded medications. Currently, our compound products are handled by [facility]. Please send new eRx to [facility]. No further action will be taken by [facility]. Thank you, [facility] [phone] (phone) [phone] (fax) documented in this encounter [facility] 09-17-2024 Instructions Shana Ferguson APRN.DATA REVIEW SPECIALIST - 09/17/2024 3:32 PM EST Shana Ferguson CNP Department of Palliative and Supportive Care Palliative Care - Specialty services in symptom management and support For questions or prescription refills, call: [phone] Friday - Friday 9AM-5PM LORENA Candelaria, RN - 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 Please call 3-5 days in advance for medication refills Evenings, Weekends, Holidays: [phone] (ask for palliative medicine on-call provider) For appointments, cancellations or reschedule, call: [phone] documented in this encounter [facility] 09-17-2024 History of Present illness Narrative PALLIATIVE MEDICINE INITIAL CONSULT SERVICE DATE: 09/17/2024 Referring Physician: Marcelina Rangel [id number] [facility] [id number] Medical Oncologist: Marcelina Rangel MD, PhD Primary Physician: Manisha Mcknight MD REASON FOR CONSULT: Symptom Management Subjective Sonya Meyer is a 38 year old female with history of 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HCC) Transferred to [facility] on 04/17/2024 after presenting to outside hospital with ~2 weeks of dyspnea and cough, followed by facial swelling. 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 EBUS-guided subcarinal LN biopsy showed T cell ALL/lymphoma I met with Sonya and her in clinic, alert, oriented, x3, NAD. Positive pain in lumbar spine which radiates down left leg, some relief with gabapentin and tylenol, she tried oxycodone which helped, but found it oversedating, Frankincense oil helpful for mild pain. No constipation or diarrhea, nausea and GERD improved with rate of tube feed slowed down, Admits to feelings of overwhelm and anxiety with diagnosis, has atarax at home which helps, but makes her sleepy. PAST MEDICAL HISTORY: History reviewed. No pertinent past medical history. PAST SURGICAL HISTORY: History reviewed. No pertinent surgical history. CURRENT MEDICATIONS: levoFLOXacin (LEVAQUIN) 500 mg tablet^Take 1 tablet by mouth daily at 6 am.^Disp: 30 tablet^Rfl: 0 acyclovir (ZOVIRAX) 400 mg tablet^Take 1 tablet by mouth two times a day.^Disp: 60 tablet^Rfl: 0 mercaptopurine (PURINETHOL) 50 mg tablet^Take 2 tablets by mouth once daily. In the evening on an empty stomach. Oral chemotherapy agent; wear double gloves when handling.^Disp: 56 tablet^Rfl: 5 methotrexate 2.5 mg tablet^Take 14 tablets by mouth one time a week. Except the week you are receiving IT methotrexate (see calendar).^Disp: 42 tablet^Rfl: 3 predniSONE (DELTASONE) 50 mg^Take 2 tablets by mouth once daily, days 1 through 5. Repeat every 28 days. ADMINISTER WITH FOOD^Disp: 10 tablet^Rfl: 5 ondansetron orally disintegrating (ZOFRAN ODT) 8 mg disintegrating tablet^Dissolve 1 tablet by mouth every 8 hours as needed for nausea/vomiting.^Disp: 90 tablet^Rfl: 2 enoxaparin (LOVENOX) 80 mg/0.8 mL^Expel 0.1 mL then inject remaining 0.7 mL subcutaneously every 12 hours.^Disp: 144 mL^Rfl: 0 pantoprazole oral liquid 2 mg/mL (CPD)^Take 20ml by mouth once daily for 30 days^Disp: 600 mL^Rfl: 3 Blood-Glucose Sensor (FREESTYLE VERENA 3 PLUS SENSOR) taran^Apply new sensor every fifteen (15) days to upper arm.^Disp: 6 Each^Rfl: 4 insulin regular human (NOVOLIN R REGULAR U100 INSULIN) 100 unit/mL injection^Inject subcutaneously 7 units three times daily at 6AM, 2PM and 10 PM with tube feeds plus sliding scale: If Blood Glucose (mg/dL) is <110 Give 0 units 111-150 Give 0 units 151-200 Give 1 unit 201-250 Give 2 units 251-300 Give 3 units 301-350 Give 4 units 351-400 Give 5 units >400 Give 5 units and Call physician. TDD up to 36 units^Disp: 10 mL^Rfl: 0 cetirizine (ZYRTEC) 10 mg tablet^Take 1 tablet by mouth once daily.^Disp: 30 tablet^Rfl: 3 gabapentin (NEURONTIN) 300 mg capsule^Take 1 capsule by mouth in the morning and 2 capsules at night^Disp: 90 capsule^Rfl: 3 predniSONE (DELTASONE) 50 mg^Take 2 tablets by mouth daily with breakfast. Take for 5 days starting on the first day of each cycle (days 1-5).^Disp: 10 tablet^Rfl: 5 blood sugar diagnostic (YebhiTOUCH VERIO TEST STRIPS) test strip^Check blood sugar every 8 hours while Tube feeding is running (0600, 1400, 2200) Patient instructed to record readings in the log book provided and take to all follow-up appointments, along with meter.^Disp: 100 Strip^Rfl: 0 lancets (YebhiTOUCH DELICA PLUS LANCET) 33 gauge^Check blood sugar every 8 hours while Tube feeding is running (0600, 1400, 2200) Patient instructed to record readings in the log book provided and take to all follow-up appointments, along with meter.^Disp: 100 Each^Rfl: 0 glucagon (GVOKE HYPOPEN 1-PACK) 1 mg/0.2 mL auto-injector^Inject 1 mg subcutaneously as needed.^Disp: 0.4 mL^Rfl: 0 insulin regular human (NOVOLIN R FLEXPEN) 100 unit/mL (3 mL) pen^Inject 7 units at 6 AM, 2 PM, and 10 PM (while tube feed infusing) + sliding scale If Blood Glucose (mg/dL) is <110 Give 0 units 111-150 Give 0 units 151-200 Give 1 unit 201-250 Give 2 units 251-300 Give 3 units 301-350 Give 4 units 351-400 Give 5 units >400 Give 5 units and Call physician. Max 36 units per day.^Disp: 15 mL^Rfl: 1 insulin syr/ndl U100 half nimesh (BD INSULIN SYRINGE, HALF UNIT,) 0.3 mL 31 gauge x 5/16 syrg^Use with insulin injections three times daily^Disp: 100 Each^Rfl: 0 nutritional supplements (OSMOLITE 1.2 YURI) 0.06 gram-1.2 kcal/mL liqd^55 mL/hr by FEEDING TUBE route continuous. Tube Feeding Formula Type: Osmolite 1.2 or equivalent Rate: 55 ml/hr x 24 hours (1320 ml total volume, 1584 kcals, 73 gm prot) Water Flush: Flush with 70 mL every 4 hours^Disp: 82272 mL^Rfl: 0 ALLERGIES: ALLERGIES No Known Allergies FAMILY HISTORY: FAMILY HISTORY Problem Relation Age of Onset other (anemia) Mother Prostate Cancer Father 50 - 59 s/p prostatectomy Diabetes Father type I No Known Problems Maternal Grandmother No Known Problems Maternal Grandfather limited info Cancer Paternal Grandmother 87 unknown Dx No Known Problems Paternal Grandfather Cancer Paternal Uncle 50 - 59 lymph node, unknown pathology Diabetes Brother type I other (anemia) Half-sister SOCIAL HISTORY: Drug Use: Not on file Alcohol Use: Not on file Tobacco Use: Never REVIEW OF SYSTEMS: Modified ESAS ([place] Symptom Assessment Scale): Information Provided By: Patient and Family member Pain: Moderate Nausea: Mild Loss of Appetite: Moderate Constipation: None Shortness of Breath: None Drowsiness: None Tiredness: Mild Depression: None Anxiety: Moderate Review of Systems Constitutional: Negative for activity change, appetite change and unexpected weight change. HENT: Negative for trouble swallowing and voice change. Eyes: Negative for pain, discharge and visual disturbance. Respiratory: Negative for cough, chest tightness and shortness of breath. Cardiovascular: Negative for chest pain, palpitations and leg swelling. Gastrointestinal: Negative for abdominal distention, abdominal pain, blood in stool, diarrhea and nausea. Endocrine: Negative for polyuria. Genitourinary: Negative for difficulty urinating, dysuria, enuresis and hematuria. Musculoskeletal: Positive for back pain. Skin: Negative. Neurological: Negative for dizziness, tremors, speech difficulty, weakness and headaches. Psychiatric/Behavioral: Negative for confusion, sleep disturbance and suicidal ideas. The patient is nervous/anxious. All other systems reviewed and are negative. Objective ECOG PERFORMANCE STATUS: 2- Ambulatory and capable of all selfcare; unable to carry out work activities. Up and about > 50% of waking hrs. PHYSICAL EXAMINATION: Vital signs: LMP (LMP Unknown) Last 1 Encounter Temp Readings: Date: Temp: Temp Src: 08/30/2024 37.7 C (99.9 F) Oral Last 1 Encounter Resp Readings: Date: Resp: 08/30/2024 16 Last 1 Encounter Pulse Readings: Date: Pulse: 08/23/2024 100 Last 1 Encounter BP Readings: Date: BP: 08/30/2024 130/60 Physical Exam Constitutional: Appearance: She is well-groomed. HENT: Head: Normocephalic and atraumatic. Jaw: There is normal jaw occlusion. Right Ear: Hearing and external ear normal. Left Ear: Hearing and external ear normal. Nose: Nose normal. Mouth/Throat: Lips: [place]. Mouth: Mucous membranes are moist. No oral lesions. Eyes: General: Lids are normal. Gaze aligned appropriately. Extraocular Movements: Extraocular movements intact. Conjunctiva/sclera: Conjunctivae normal. Neck: Thyroid: No thyroid mass. Cardiovascular: Rate and Rhythm: Normal rate and regular rhythm. Pulses: Normal pulses. Heart sounds: Normal heart sounds. Pulmonary: Effort: Pulmonary effort is normal. Abdominal: General: Abdomen is flat. Bowel sounds are normal. Palpations: Abdomen is soft. Musculoskeletal: General: No swelling, tenderness or deformity. Normal range of motion. Right shoulder: Normal. Left shoulder: Normal. Right upper arm: Normal. Left upper arm: Normal. Cervical back: Full passive range of motion without pain. Right lower leg: No edema. Left lower leg: No edema. Skin: General: Skin is warm and dry. Capillary Refill: Capillary refill takes less than 2 seconds. Findings: No rash. Neurological: General: No focal deficit present. Mental Status: She is alert and oriented to person, place, and time. Psychiatric: Attention and Perception: Attention normal. Mood and Affect: Mood normal. Speech: Speech normal. Behavior: Behavior normal. Behavior is cooperative. Thought Content: Thought content normal. Cognition and Memory: Cognition and memory normal. Judgment: Judgment normal. DATA: Diagnostic tests reviewed for today's visit: Most recent labs and imaging results. CrCl cannot be calculated (Unknown ideal weight.). Opioid Management: Yes Indication for Opioid Prescribing: Cancer related pain Review of previous pain treatment and response to treatment completed?: Yes How much does pain impede patient s ability to engage in work or other purposeful activities, interfere with your activities of daily living, physical activity, or quality of your family life and social activities? Significantly Objective goals of treatment:Improved comfort and function based on an ongoing functional assessment Rationale for medication choice and dosage: Based on a review of patient's previous therapies, diagnosis, goals of therapy and an assessment of the risks and benefits of using opioid therapy Expected duration of treatment: At least three months, based on an ongoing assessment at least every three months ORT-OUD Score: 1 A score of 3 or higher may indicate a higher risk for future development of aberrant drug related behavior or opioid use disorder. History of substance misuse or substance use disorder?: No OARRS checked?: Yes, no abberancy Naloxone offered?: Yes, accepted Prescribed Morphine Equivalent Daily Dose (MEDD): Yes > 50 MEDD Yes, I am certified in Hospice and Palliative Care, Hematology, Medical Oncology or Pain Medicine Chronic Opioid Management Agreement and Informed Consent: Signed today Shana Ferguson NP, SAIL REPAIR PERSON.DATA REVIEW SPECIALIST Assessment & Plan (Z51.5) Palliative care by specialist (primary encounter diagnosis) - Introduced philosophy of palliative medicine and hospice to family. 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 Existence of Advance Directives: Yes, documentation or copy in medical record Next Visit:4 Weeks in person Recommendations will be communicated back to the consulting service by way of shared electronic medical record. Shana Ferguson NP, SAIL REPAIR PERSON.DATA REVIEW SPECIALIST September 17, 2024 2:53 PM I spent a total of 35 minutes on the date of the service which included preparing to see the patient, [id number] patient care, completing clinical documentation, obtaining and/or reviewing separately obtained history, performing a medically appropriate examination, counseling and educating the patient/family/caregiver, ordering medications, tests, or procedures, communicating with other HCPs (not separately reported), independently interpreting results (not separately reported), communicating results to the patient/family/caregiver, and care coordination (not separately reported). This note may have been partially generated using the [employer] voice recognition system. While every effort was made to correct voice recognition errors, kindly be aware that some errors may occasionally occur. documented in this encounter [facility] 09-17-2024 Telephone encounter Note Spoke with and confirmed location of patient's RX,s. Also provided scheduling telephone number so spouse can get MRI scheduled. Spoke with patient and advised per Dr. Rangel, patient is to hold her MTX and MP6 until a plan is in place for her radiation. However, she is to continue with her monthly VCR and LP's and 1 week of prednisone which she can start today then start prednisone the same day of VCR x 7 days. [facility] 09-17-2024 Miscellaneous Notes Spoke with and confirmed location of patient's RX,s. Also provided scheduling telephone number so spouse can get MRI scheduled. Spoke with patient and advised per Dr. Rangel, patient is to hold her MTX and MP6 until a plan is in place for her radiation. However, she is to continue with her monthly VCR and LP's and 1 week of prednisone which she can start today then start prednisone the same day of VCR x 7 days. Sonya Meyer('s) spouse is calling Marcelina Rangel MD, PhD today regarding 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 - Other (Refills / MRI ) Patient's spouse is requesting refills - explained that 2 of the 3 were sent for refill on 09/14 and suggested they check with their pharmacy. Submitted request for 3rd medication. Patient's spouse also stated they have not received a call regarding scheduling of the MRI. Patient has been identified by name and birthdate. Requesting response back: [phone] (Jose) Winnie Lagunas September 17, 2024 documented in this encounter [facility] 09-17-2024 Telephone encounter Note Spoke with patient and spouse, they did received the requested refills from [facility] [place]. Please disregard the new refill orders. Pily Rich September 17, 2024 [facility] 09-17-2024 Miscellaneous Notes Spoke with patient and spouse, they did received the requested refills from [facility] [place]. Please disregard the new refill orders. Pily Rich September 17, 2024 documented in this encounter [facility] 09-17-2024 Telephone encounter Note Sonya Meyer('s) spouse is calling Marcelina Rangel MD, PhD today regarding 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 - Other (Refills / MRI ) Patient's spouse is requesting refills - explained that 2 of the 3 were sent for refill on 09/14 and suggested they check with their pharmacy. Submitted request for 3rd medication. Patient's spouse also stated they have not received a call regarding scheduling of the MRI. Patient has been identified by name and birthdate. Requesting response back: [phone] (Jose) Winnie Lagunas September 17, 2024 [facility] 09-07-2024 Telephone encounter Note Spoke to patient & scheduled her to see Estefani [facility] on 09/10/2024 at 3 pm. JUSTIN Landin [facility] 12-03-2024 Miscellaneous Notes Spoke to patient & scheduled her to see Estefani shay on 09/10/2024 at 3 pm. JUSTIN Landin Palliative Medicine Referral Assessment Referral Accepted: Yes, Location: [place]. Patient current location: Home: Timeframe for schedulin-2 weeks or next available with Estefani McgovernRajat Turner Med appropriate diagnosis: -cell acute lymphoblastic leukemia (ALL) (HCC) [C91.00 ] Established with Inpatient Pall [facility] team: No. was supposed to see Dr. Higgins at [facility] yesterday but her procedure went over. She is no longer going to [facility] for anything. Transfer due to living in [facility]. Reason for consult: introduction to services, goals of care, cancer related pain, and symptom support Ilana Rich RN September 07, 2024 documented in this encounter [facility] 09-07-2024 Telephone encounter Note Palliative Medicine Referral Assessment Referral Accepted: Yes, Location: [place]. Patient current location: Home: Timeframe for schedulin-2 weeks or next available with Estefani McgovernRajat Turner [place]avel appropriate diagnosis: -cell acute lymphoblastic leukemia (ALL) (HCC) [C91.00 ] Established with Inpatient Pall [facility] team: No. was supposed to see Dr. Higgins at [facility] yesterday but her procedure went over. She is no longer going to [facility] for anything. Transfer due to living in [facility]. Reason for consult: introduction to services, goals of care, cancer related pain, and symptom support Ilana Rich RN September 07, 2024 [facility] 09-06-2024 Surgery Surgical operation note BRIEF OPERATIVE / PROCEDURE NOTE LOG ID: [id number] SURGERY/PROCEDURE DATE: 09/06/2024 INCISION/PROCEDURE START TIME: 10:56 AM INCISION CLOSE/PROCEDURE END TIME: 11:07 AM SURGEON(S)/PROCEDURALIST(S) AND CREDIT PRODUCTS OFFICER(S): Surgeons and Role: * Amie Tran PA-C - Primary Physician Wagon Washer: Levsia Falk PA-C SURGERY/PROCEDURE(S): LP with IT chemotherapy under fluoroscopy ANESTHESIA: Local FINDINGS: L3-L4, clear CSF, methotrexate (PF) 15 mg, hydrocortisone sodium succinate (PF) 50 mg in NaCl (PF) 0.9% 3 mL injected intrathecally ESTIMATED BLOOD LOSS: 0 ml SPECIMENS: 4.5 cc in one vial COMPLICATIONS: None CLOSURE TECHNIQUE: Primary PRE-OP/PRE-PROCEDURE DIAGNOSIS: T-cell acute lymphoblastic leukemia (ALL) POST-OP/POST-PROCEDURE DIAGNOSIS: Same as Preop Specimen obtained, labeled and verified with Power System Engineer; RT verbalized specimen sent to lab. SIGNATURE: Amie Tran PA-C PATIENT NAME: Sonya Meyer DATE: September 06, 2024 TIME: 11:14 AM [facility] Work Phone: 09-06-2024 Surgical operation note BRIEF OPERATIVE / PROCEDURE NOTE LOG ID: [id number] SURGERY/PROCEDURE DATE: 09/06/2024 INCISION/PROCEDURE START TIME: 10:56 AM INCISION CLOSE/PROCEDURE END TIME: 11:07 AM SURGEON(S)/PROCEDURALIST(S) AND CREDIT PRODUCTS OFFICER(S): Surgeons and Role: * Amie Tran PA-C - Primary Physician Wagon Washer: Lesvia Falk PA-C SURGERY/PROCEDURE(S): LP with IT chemotherapy under fluoroscopy ANESTHESIA: Local FINDINGS: L3-L4, clear CSF, methotrexate (PF) 15 mg, hydrocortisone sodium succinate (PF) 50 mg in NaCl (PF) 0.9% 3 mL injected intrathecally ESTIMATED BLOOD LOSS: 0 ml SPECIMENS: 4.5 cc in one vial COMPLICATIONS: None CLOSURE TECHNIQUE: Primary PRE-OP/PRE-PROCEDURE DIAGNOSIS: T-cell acute lymphoblastic leukemia (ALL) POST-OP/POST-PROCEDURE DIAGNOSIS: Same as Preop Specimen obtained, labeled and verified with Power System Engineer; RT verbalized specimen sent to lab. 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 Presented with large anterior mediastinal mass (~14 cm) causing SVC syndrome and LIJ thrombus. No bone marrow or ADJUSTER LEADER involvement at diagnosis Current treatment - Cyclophosphamide, vincristine and prednisone (CVP) repeated every 21 days with intrathecal methotrexate and bortezomib C1D1 - 04/23/2024 C2D1 - 05/14/2024 C3D1 - 06/04/2024 C4D1 - 06/25/2024 C5D1 - 07/16/2024 IT Methotrexate administered on 05/03/2024, 05/10/2024, 06/08/2024 and 06/25/2024. Subcutaneous bortezomib - on 04/30/2024, 05/14/2024, 05/19/2024 Transfusion status - Jevoha's witness. No blood product administration. Interval History - Labs done at the [facility] [place] from 07/15/2024 shows WBC at 7.4 (ANC - 5800, lymphocytes - 900), hemoglobin of 10.8 g/dl and platelets at 514,000. She denies any fever/chills or URI/UTI/GI symptoms. She reports stable pain in bilateral thighs (L>R) radiating to thighs, and sharp pain at level below bilateral knees. She takes gabapentin intake. She is continuing with her nasogastric tube feedings (55 ml/hr) and takes all her medications crushed through the nasogastric tube. Impression: This is a 38-year-old lady who is Roman [employer] with early T-cell precursor lymphoblastic leukemia/lymphoma who is here for follow up. 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 She has completed four cycles of CVP with intrathecal methotrexate and bortezomib (three doses, discontinued due to peripheral neurotoxicity). She will start cycle 5 of CVP today. She will continue with intrathecal methotrexate administrations for a total of at least six doses (she has completed four so far). During her initial hospitalization, Rad Onc was consulted while to assess the role of XRT to mediastinal mass and consensus was not to pursue palliative XRT. The plan of care based on today's assessment is as follows - - To complete six cycles of CVP with intrathecal methotrexate and then a whole body FDG-PET scan to evaluate treatment response. At that time we will also order a T-cell MRD on peripheral blood. We will not pursue bone marrow biopsy for treatment response evaluation as it was not involved at the time of diagnosis. - The treatment regimen is CVP cycles repeated every 21 days - cyclophosphamide (1000 mg/m2 as intravenous infusion once on day 1; vincristine 2 mg intravenous injection once on day 1; and prednisone 100 mg once daily on days 1-45 of every 21 days. The plan is to do the 6th cycle at Dr. Erickson's office. The sixth cycle of CVP begins on 08/05/2024. - For intrathecal chemotherapy with methotrexate we will arrange it here at the [facility]. - She also receives inhaled pentamidine for PJP prophylaxis on day 1 of her CVP cycle. - She will continue with prophylactic acyclovir and prophylactic levofloxacin (only if ANC is below 500) - All her medications are to be crushed and administered through nasogastric tube. - Check CBC with differential and CMP once a week and please use pediatric tubes for lab draws. - Transfuse leukoreduced and irradiated blood products - 1 unit of red blood cells for hemoglobin 7-8 g/dl and 1 unit of platelets for platelet counts equal to or less than 10,000. However, the number of red blood cells or platelet units to be transfused in cases of symptomatic anemia or active bleeding or parameters outside the mentioned range will be at the discretion of the treating physician. Premedications for transfusion include benadryl 25 mg and tylenol 650 mg through nasogastric tube. 2) Steroid induced hyperglycemia - Continue with blood glucose assessment and insulin use to manage hypoglycemia when on steroids. 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 Continue Lovenox 1 mg/kg BID. 4) Elevated transaminases - Liver MRI (05/06/24) showed diffuse hepatic steatosis. Await today's labs. 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 No acute surgical intervention recommended as of now. Will hold off on PEG tube placement at this time, maintain corpak. Once she is completed with six cycles of CVP, we will reconsult Thoracic Surgery for definitive surgery for TEF. 6) Right Breast nodule: Underwent breast biopsy on 04/20/2024 demonstrating no blastoid features and consistent with benign fibroadenoma. No active intervention required. Clinical course, treatment dates, hospitalizations and response assessments - (a) Presenting symptoms - Transferred to [facility] on 04/17/2024 after presenting to outside hospital with ~2 weeks of dyspnea and cough, followed by facial swelling. 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 A bone marrow biopsy was performed on 04/19/2024 which showed no evidence of marrow involvement. NGS testing was performed and notable for a TP53 mutation. Given patient's synagogue preferences ([employer]), she was started on cycle 1 CVP therapy on 04/23/2024. Her treatment course was complicated by acute hypoxic respiratory failure secondary to multifactorial issues (right lower lobe pulmonary embolism, left lower lobe pneumonia, superior vena cava syndrome), however was able to be weaned back down to room air. ID was consulted, and patient completed course of Zosyn from 04/19 to 04/26. Vascular medicine was consulted, and patient was started on therapeutic doses of Lovenox. While admitted, Ms. Meyer had repeat episodes of dysphagia, so a Corpak was placed and speech pathology was consulted. Ms. 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 Thoracic surgery was consulted and recommended no acute surgical intervention given large mediastinal mass with plan for outpatient follow-up post-discharge. Her course was also complicated by transaminitis for which she underwent a liver MRI which revealed diffuse hepatic steatosis and a contracted gallbladder with stones but without any suspicious liver lesions nor lymphoproliferative involvement of the abdomen. Hepatology was consulted and it was thought to be due to Injury from vincristine (vinca alkaloid) vs. Bortezomib vs. possible leukemia infiltrative process. Ms. Meyer was also noted to have steroid-induced hyperglycemia for which endo was consulted and recommended insulin at discharge. She was seen by a certified breastfeeding educator and educated on use with plans to follow up with Endocrinology outpatient post discharge. Prior to discharge, Ms. Meyer was educated on line care, TF care, and administration of Lovenox/Insulin. She was started on C2 of CVP on 05/14/2024 without complication and subsequently discharged on 05/17/2024. (b) Baseline diagnostic evaluations - Presented to [facility] ED on 04/07 with complaints of SOB and cough x2 weeks and new facial swelling. 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 CT Chest 04/18: Large anterior mediastinal mass reportedly related to known T-cell LBL. Attempted to get LN Biopsy slides from [facility]: called and spoke to path lab, and fax request sent. CT-guided core needle mediastinal biopsy (04/23/24) at [facility] Demonstrated fragmented cores of lymphoid tissue showing areas with significant crush artifact limiting morphologic evaluation. A relatively diffuse proliferation of intermediate to large lymphoid cells is seen with mildly irregular nuclear contours, finely dispersed chromatin, inconspicuous nucleoli and scant cytoplasm. Apoptotic bodies and mitoses are present. Immunohistochemical/in situ hybridization stains were performed on sections from block A1 for further evaluation of the atypical lymphoid proliferation. CD3 shows numerous positive cells throughout that coexpress CD34, NOTCH1, LMO2, CD5 (minor subset) and are negative for CD20, TdT, CD30, ALK1, CD2 and chromogenic in situ hybridization for EBV-encoded small RNA (JUANITO). Ki-67 proliferation fraction is difficult to interpret due to significant crush artifact, but appears high with many positive cells. Flow cytometric immunophenotypic studies demonstrate an abnormal T-cell population that is positive for CD3, CD4, CD7 with very dim to negative CD5 expression and monotypic TRBC1 expression. The abnormal T cells are negative for CD2 and CD8. NGS: TP53 mutation p.R248Q, [id number], c.743G>A, VAF: 93.8% RNA sequencing: No fusions detected. FLT3 Internal Tandem Duplication (ITD) mutation: Not Detected -S/P BMBx (04/19/24) :No e/o leukemia -S/P breast biopsy on 04/20 - no blastoid features; benign fibroadenoma -LP with IT chemo (05/03/24): Negative -LP with IT chemo (05/10/24) - Negative -Repeat CT Chest (05/10/2024) - Slightly decreased large anterior and superior mediastinal mass -PET/CT (05/12/2024) - anterior mediastinal mass w/ heterogenous uptake and areas suggestive of necrosis Review of systems other than interval history: Constitutional: No fever, chills, night sweats, anorexia or malaise. Eyes: No change in vision, blurriness, diplopia, redness, or irritation. ENT: No mouth sores or bleeding gums; no hoarseness of voice. . No epistaxis or other nasal problems. No changes in hearing, vertigo, or tinnitus. Respiratory: No coughing, wheezing, dyspnea at rest, exertional dyspnea, or hemoptysis. Cardiovascular: No anginal symptoms, palpitations, orthopnea, PND, syncopal events or presyncopal events. Gastrointestinal: Occasional nausea, No vomiting, heartburn or acid reflux, diarrhea, constipation or abdominal cramping. Bowel habit is unchanged; and no melena or hematochezia. Genitourinary: No urgency, frequency, dysuria, or hematuria. No hesitancy or decreased urinary stream, incomplete emptying or ncontinence. Musculoskeletal: Per HPI Skin: Abdominal skin has anticipatory rash from lovenox injections. Neurological: No syncope, near-syncope, or seizures or alteration in sensorium or motor strength. Psychiatric: Memory, short term & fdc intact; no disturbance in sleep pattern and denies symptoms of depression. Endocrine: Negative for temperature intolerance, unusual sweating, or symptoms of glucose intolerance. Hematologic/Lymphatic: Negative for prolonged bleeding, easy bruising, and swollen nodes. No lower extremity edema. Allergic/Immunologic: No itching, or jaundice. Past medical and surgical history: - Uterine fibroids s/p hysterectomy Family and social history: Paternal grandmother Stomach cancer Father's brother: Lump in neck, unclear cancer Father: Prostate cancer Allergies: None Physical Examination: Vitals: LMP (LMP Unknown) General: of very pleasant disposition, sitting comfortably in wheel chair, with NG tube and Tube-feeds running, in no acute distress, accompanied by her ECOG performance is 1 HEENT: EOMI; PERRL, no thrush or petechiae Neck: Supple, no thyromegaly, CV: Tachycardia, S1S2 normal, no M/R/G Chest: Clear to auscultation bilaterally without any wheezes, rales or rhonchi. Abd: soft, obese, NT/ND, + BS, no hepatosplenomegaly Ext: No edema Neuro: No focal deficits LN: No supraclavicular, infraclavicular, axillary, epitrochlear or inguinal lymphadenopathy. Current Medications: Reviewed from [facility] and confirmed with the patient. Labs: Reviewed from [facility] and integrated in assessment and plan. Marcelina Rangel MD PhD MPH Associate Staff Hematologic Oncology and Blood Disorders Pager [phone] Date of service:08/06/2024 I spent a total of 40 minutes on the date of the service which included preparing to see the patient, [id number] patient care, completing clinical documentation, obtaining and/or reviewing separately obtained history, performing a medically appropriate examination, counseling and educating the patient/family/caregiver, ordering medications, tests, or procedures, independently interpreting laboratory and imaging results (not separately reported), communicating results to the patient/family/caregiver, and care coordination (not separately reported). documented in this encounter [facility] 09-06-2024 Nurse Note Procedure cancelled. Pt notified. DC from IR. [facility] 09-06-2024 Nurse Note Procedure cancelled. Pt notified. DC from IR. documented in this encounter [facility] 08-27-2024 Telephone encounter Note Will fax office note from 08/23/2024 when completed. [facility] 08-27-2024 Miscellaneous Notes Will fax office note from 08/23/2024 when completed. Tiff from Dr. Ngozi Erickson's Office is calling Marcelina Rangel MD, PhD today regarding 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 - Other (08/23 Office Note) Tiff is requesting the most recent office visit note (08/23) to be faxed to: [phone]. (Visit note is currently pending completion) Patient has been identified by name and birthdate. Requesting response back if needed: [phone] Jagruti Awad August 27, 2024 documented in this encounter [facility] 08-27-2024 Telephone encounter Note Tiff from Dr. Ngozi Erickson's Office is calling Marcelina Rangel MD, PhD today regarding 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 - Other (08/23 Office Note) Tiff is requesting the most recent office visit note (08/23) to be faxed to: [phone]. (Visit note is currently pending completion) Patient has been identified by name and birthdate. Requesting response back if needed: [phone] Jagruti Awad August 27, 2024 [facility] 08-27-2024 History of Present illness Narrative DATE: August 27, 2024 PATIENT NAME: Sonya Meyer PATIENT Patient identified by name and birthdate. Patient is in Nuclear Medicine for NM PET/CT WHOLE BODY . PICC line is located in Right upper arm. Blood Return: Good Flush with 10cc's Normal Saline Radioisotope given per protocol. Flushed with: 20 ml Normal Saline Patient tolerated procedure well. Apple Key RN August 27, 2024 9:41 AM RADIOLOGY SERVICE PROGRESS NOTE SERVICE DATE: 08/27/2024 SERVICE TIME: 9:40 AM PATIENT IDENTITY VERIFICATION COMPLETED USING TWO (2) STANDARD IDENTIFIERS: Name and Date of confirmed by patient verbally FALL SCREENING: Has the patient had 2 falls in the last year or 1 fall with injury or currently using an Ambulatory Assistive Device (Walker, Cane, Wheelchair, Crutches, etc.)? No PATIENT GENDER DATA: .female : No ALLERGIES: Reviewed and unchanged MEDICATIONS REVIEWED: Yes PATIENT RELEVANT IMPLANT DATA REVIEWED: Not Applicable PATIENT PRESENTS WITH AN IMPLANTABLE OR ATTACHED SAFETY AND SECURITY MANAGER: No CREATININE: Creatinine Date Value Ref Range Status 07/16/2024 0.39 (L) 0.58 - 0.96 mg/dL Final 06/25/2024 0.45 (L) 0.58 - 0.96 mg/dL Final 06/04/2024 0.43 (L) 0.58 - 0.96 mg/dL Final Estimated Glomerular Filtration Rate Date Value Ref Range Status 07/16/2024 130 >=60 mL/min/1.73m Final Comment: Estimated Glomerular Filtration Rate (eGFR) is calculated using the 2020 CKD-EPI creatinine equation. This equation utilizes serum creatinine, sex, and age as parameters. The creatinine assay has traceable calibration to isotope dilution-mass spectrometry. Refer to KDIGO guidelines for clinical interpretation. In patients with unstable renal function, e.g. those with acute kidney injury, the eGFR may not accurately reflect actual GFR. P.O.C.T. RESULTS: N/A August 27, [address] PERFORMED: No IV SITE: Ambulatory: PICC-LINE RIGHT ARM POST EXAM PIV STATUS: Not applicable PROCEDURE TYPE: NM INJECT: PET/CT WHOLE BODY SCAN. 11.5 mCi F18 FDG. No other medications given.. ADMINISTRATION TIME: 1135 PATIENT DISCHARGED TO: Ambulatory patient, left MI department area. Is this a therapy: No A Diagnostic radioactive procedure has taken place, with no further precautions necessary other than routine body substance precautions. More information regarding radiation safety can be found using this link: [email or web address] SIGNATURE: JACOBO Mike) PATIENT NAME: Sonya Meyer DATE: August 27, 2024 TIME: 9:40 AM PAGER/CONTACT #: documented in this encounter [facility] 08-25-2024 Telephone encounter Note SCHEDULED 08/27 [facility] 08-25-2024 Telephone encounter Note Spoke with Kylah and provided medical records telephone number and fax number to request previous treatment records. 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 Is this request for a Main [place] PET scan appointment? Yes: Partner Marketing Intern: Vignesh Chappell RN Requesting Person (Last Name, First Name): Juan CarlosMarcelina villanueva Area Code + Phone/Pager: [phone] Who do we call to schedule this appointment? Patient Requesting Staff Marcelina Rangel Area Code + Phone/Pager: [phone] PET Orders (A delay in scheduling will result if the orders are not present at time of review): Internal ADDITIONAL ACTION MAY BE REQUIRED IF PATIENTS OON INSURANCE OR SELF PAY COVERAGE HAS NOT BEEN CLEARED FOR REQUESTED APPOINTMENT. Scheduling: SHE: As soon as insurance will allow What account will this PET appointment be linked to? P/F Type of PET: Oncology: Are there additional diagnostic CT scans required to be done at time of PET scan? No Is the request for a PET MR ? No What account will diagnostic testing appointment be linked to? P/F Will the patient need anesthesia? NO Send requests to P [facility] documented in this encounter [facility] 08-25-2024 Miscellaneous Notes Spoke with Kylah and provided medical records telephone number and fax number to request previous treatment records. Kylah from [email or web address] is calling Marcelina Rangel MD, PhD today regarding 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 - Other (Treatment plan request) Patient has been identified by name and birthdate. Caller is requesting patient's treatment plan for review. Duration of symptoms: N/A Requesting response back: office Lesvia Kirk August 25, 2024 documented in this encounter [facility] 08-25-2024 Telephone encounter Note Kylah from [email or web address] is calling Marcelina Rangel MD, PhD today regarding 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 - Other (Treatment plan request) Patient has been identified by name and birthdate. Caller is requesting patient's treatment plan for review. 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] Additional Information/Imagin08-06-24 IN PT, 08-23-24 Hem Onc 04-23-24 Mediastinum, CT-guided core needle biopsy:- T-lymphoblastic lymphoma/leukemia Initial/Subsequent: Subsequent PET Imaging Protocol: Top Of Head To Toes Diagnostic Imaging Requested: No Is this a pretreatment and an initial PET scan: No - Schedule as requested Route to or Requested Scheduling Pool: P PET PANTOGRAPH SETTER , P [facility] CLERICAL POOL([place]), P [facility] 08-24-2024 Telephone encounter Note This form is used for MAIN CAMPUS APPOINTMENTS ONLY. Is this request for a [facility] [place] PET scan appointment? Yes: Partner Marketing Intern: Vignesh Chappell RN Requesting Person (Last Name, First Name): Marcelina Rangel Area Code + Phone/Pager: [phone] Who do we call to schedule this appointment? Patient Requesting Staff Marcelina Rangel Area Code + Phone/Pager: [phone] PET Orders (A delay in scheduling will result if the orders are not present at time of review): Internal ADDITIONAL ACTION MAY BE REQUIRED IF PATIENTS OON INSURANCE OR SELF PAY COVERAGE HAS NOT BEEN CLEARED FOR REQUESTED APPOINTMENT. Scheduling: SHE: As soon as insurance will allow What account will this PET appointment be linked to? P/F Type of PET: Oncology: Are there additional diagnostic CT scans required to be done at time of PET scan? No Is the request for a PET MR ? No What account will diagnostic testing appointment be linked to? P/F Will the patient need anesthesia? NO Send requests to P [facility]ORD REVIEW [facility] 08-23-2024 Nurse Note Additional intake questions: Has the patient had fever, nausea, vomiting, diarrhea, constipation, fatigue for > 1 week? Yes, nausea. Provider Notified Does the patient have a decreased appetite? No Does patient want to see a Block Inspector? No (yes to any of above refer patient to schedulers for dietitian appointment) ) Does patient have any new or increased numbness or tingling of extremities? No Is patient interested in fertility information? No Does patient need any prescription refills? Yes, LIP notified Does patient have an advanced directive in place? Yes, copies are in [facility] 08-23-2024 Nurse Note Additional intake questions: Has the patient had fever, nausea, vomiting, diarrhea, constipation, fatigue for > 1 week? Yes, nausea. Provider Notified Does the patient have a decreased appetite? No Does patient want to see a Block Inspector? No (yes to any of above refer patient to schedulers for dietitian appointment) ) Does patient have any new or increased numbness or tingling of extremities? No Is patient interested in fertility information? No Does patient need any prescription refills? Yes, LIP notified Does patient have an advanced directive in place? Yes, copies are in [facility] documented in this encounter [facility] 08-18-2024 Telephone encounter Note FOLLOW-UP BONE MARROW BIOPSY CALL BACK Phone call made to Sonya Meyer for follow-up Bone Marrow Biopsy procedure on 08/17/24. 1. Are you having any of the following? None 2. Has there been any bleeding from the site? NO 3. Describe the appearance of the biopsy site: Normal 4. Do you have any questions or concerns? Patient asked if she could take Motrin for pain. Advised patient we want her to hold off on any Ibuprofen products until tomorrow. Informed patient she can take tylenol until then. Ame Polanco LPN [facility] 08-18-2024 Miscellaneous Notes FOLLOW-UP BONE MARROW BIOPSY CALL BACK Phone call made to Sonya Meyer for follow-up Bone Marrow Biopsy procedure on 08/17/24. 1. Are you having any of the following? None 2. Has there been any bleeding from the site? NO 3. Describe the appearance of the biopsy site: Normal 4. Do you have any questions or concerns? Patient asked if she could take Motrin for pain. Advised patient we want her to hold off on any Ibuprofen products until tomorrow. Informed patient she can take tylenol until then. Ame Polanco LPN documented in this encounter [facility] 08-18-2024 Note Addended by: MANISHA MCKNIGHT on: 08/18/2024 01:16 PM Modules accepted: Orders [facility] 08-18-2024 Miscellaneous Notes Addended by: MANISHA MCKNIGHT on: 08/18/2024 01:16 PM Modules accepted: Orders Her headaches and bp are better we can stop the rx. Ame from [facility] called to let you know the patient is on a continuous feeding drip and was wondering if you wanted to adjust the dosage of Propranolol. Ty [phone] documented in this encounter [facility] 08-18-2024 Telephone encounter Note Her headaches and bp are better we can stop the rx. [facility] 08-18-2024 Telephone encounter Note Ame from [facility] called to let you know the patient is on a continuous feeding drip and was wondering if you wanted to adjust the dosage of Propranolol. Ty [phone] [facility] 08-17-2024 Procedure note Patient arrived to receive aerosol Pentamidine breathing treatment. Identity was confirmed with 2 patient identifiers. Lungs cta pretreatment. ra spo2 96, hr 116 Pentamadine was reconstituted with 6 cc sterile water. Patient given aerosol Pentamadine(Nebupent) 300mg via nebulizer w/ exhalation filter at 6l/m. Patient tolerated treatment well with no complaint of cough or dyspnea. Lung sounds unchanged post treatment. ra spo2 98, hr 106 Stewart Ennis RRT [facility] 08-17-2024 Procedure note Patient arrived to receive aerosol Pentamidine breathing treatment. Identity was confirmed with 2 patient identifiers. Lungs cta pretreatment. ra spo2 96, hr 116 Pentamadine was reconstituted with 6 cc sterile water. Patient given aerosol Pentamadine(Nebupent) 300mg via nebulizer w/ exhalation filter at 6l/m. Patient tolerated treatment well with no complaint of cough or dyspnea. Lung sounds unchanged post treatment. ra spo2 98, hr 106 Stewart Ennis RRT documented in this encounter [facility] 08-17-2024 Nurse Note BONE MARROW Aspirate & Biopsy Recovery Nursing Assessment/Intervention Post-procedure: Safety Maintained. Call light within reach. Will continue to monitor patient status. Family present. Discharge: Time: 1140 BP: 151/108 P: 111 Time: 1157 BP: 140/85 P: 113 Dressing: Dry and intact Signs & Symptoms\ pt denies: abd/groin pain, chest pain, short of breath, faintness, and dizziness Mental status: WNL skin color/quality: WNL Pt was discharged in apparent satisfactory condition. Comments: None, patient tolerated procedure well. electronically signed: Ame Polanco LPN [facility] 08-17-2024 Nurse Note BONE MARROW Aspirate & Biopsy Recovery Nursing Assessment/Intervention Post-procedure: Safety Maintained. Call light within reach. Will continue to monitor patient status. Family present. Discharge: Time: 1140 BP: 151/108 P: 111 Time: 1157 BP: 140/85 P: 113 Dressing: Dry and intact Signs & Symptoms\ pt denies: abd/groin pain, chest pain, short of breath, faintness, and dizziness Mental status: WNL skin color/quality: WNL Pt was discharged in apparent satisfactory condition. Comments: None, patient tolerated procedure well. electronically signed: Ame Polanco LPN Additional intake questions: Has the patient had fever, nausea, vomiting, diarrhea, constipation, fatigue for > 1 week? No Does the patient have a decreased appetite? No Does patient want to see a Block Inspector? No (yes to any of above refer patient to schedulers for dietitian appointment) ) Does patient have any new or increased numbness or tingling of extremities? No Is patient interested in fertility information? No Does patient need any prescription refills? No Does patient have an advanced directive in place? Yes, copies are in Epic Electronically Signed By: Ame Polanco LPN AMBULATORY PATIENT EDUCATION NOTE TOPIC: Bone marrow biopsy READINESS TO LEARN COGNITIVE ABILITY: Alert and oriented MOTIVATION TO LEARN: Eager FAMILY SUPPORT: High - Very involved in pt care INSTRUCTION PROVIDED TO: Patient and family member PATIENT LEARNS BEST BY: Individual Instruction Written Instruction - Hand-outs Verbal Instruction FACTORS AFFECTING LEARNING: None PHYSICAL LIMITATIONS AFFECTING LEARNING: None LEARNING RESPONSE DIAGNOSIS: Disease assessment METHOD OF INSTRUCTION: Individual instruction Written instruction/Handouts Verbal instruction PATIENT / FAMILY RESPONSE: Verbalizes understanding of: PRE PROCEDURE MEDICATON-Use of designated livery car driver. INFECTION MANAGEMENT-The signs and symptoms of an infection (chills and fever) and the importance of contacting the physician. PAIN MANAGEMENT-The effective strategies to manage pain, use of Tylenol instead of ASA or Ibuprofen. BIOPSEY SITE-Care of biopsy site, bleeding control and instruction for contacting physician in case of excessive bleeding. FOLLOW-UP PLAN: Patient instructed to call with any further issues SUPPLEMENTAL MATERIAL: Patient Instruction for Home-Care Following a Bone Marrow Biopsy REFERRAL (RECOMMENDATION): None Electronically Signed By Ame Polanco LPN In Department: HEMATOLOGY/ONCOLOGY documented in this encounter [facility] 08-17-2024 Procedure note Associated Ord er(s): BONE MARROW BIOPSY Post-Procedure Diagnose(s): TLL (T-cell lymphoblastic lymphoma) ([facility]) BEDSIDE PROCEDURE NOTE BONE MARROW BIOPSY Date/Start Time: 08/17/2024 11:15 AM Date/Stop Time: 08/17/2024 11:35 AM Performed by: Candi Vera APRN.CNP Authorized by: Candi Vera APRN.CNP Where was Patient When this Procedure was Performed: [facility] Informed Consent Consent Obtained: Written [place] Protocol A moment to CARE was completed. SIGN IN Personnel directly involved with the procedure wore the appropriate PPE. Special Equipment: Yes (OnControl) Patient/Surrogate Stated/Verified: Patient name, Date of , Relevant allergies and Intended procedure TIME OUT Intended patient and procedure match the source document(s). Consent documented and matches the intended procedure. Relevant labs, photos, and/or imaging studies have been reviewed. Correct side/site marked and visible. Medications required for procedure verified. No fire risk assessment and interventions applicable. No implant(s) inserted. Pre-Procedure Details: The area was prepped with povidone Iodine (Betadine) and allowed to dry. A sterile partial body drape was applied following the usual aseptic technique. Medications: Analgesia Sedation CCHS: Tylenol. Local Anesthesia (see MAR): Lidocaine 2% (10 ml) Anxiolysis (see MAR): Lorazapem Procedure Details: Patient Position: Left lateral decubitus Aspiration Laterality: Unilateral Aspiration Site: Right posterior superior iliac crest Biopsy Laterality: Unilateral Biopsy Site: Right posterior sperior iliac crest OnControl biopsy system was used. Using aseptic technique, bone marrow aspiration was performed. A touch prep was taken. Core biopsy was obtained 1 cm. The core biopsy was confirmed. Number of External Insertion Sites: 1 Pressure dressing applied to Bone Marrow site(s). Hemostasis maintained. Assisting Clinician(s): Vivi Pisano APRN.CNP, preformed the entire procedure under my direct supervision. Mayda Ramos APRN.CNP observed. Post-Procedure Details: Patient Tolerance: Patient tolerated the procedure well with no immediate complications Estimated Blood Loss: scant Specimens Sent: bone marrow analysis, bone marrow chromosome analysis, DNA extraction and flow cytometry (ALL T-cell MRD) Teaching Complete: Bone Marrow Biopsy Post-procedure teaching complete Post-procedure care was reviewed and explained. Patient instructed to communicate complaints of redness, swelling, increased or unresolved pain, bleeding chills, bruising, and/or fever. Patient verbalized understanding. SIGN OUT All instruments, equipment, possible retained foreign bodies accounted for. Post-procedure follow-up management communicated and Plan of Care Visit completed when applicable Comments: Libra Doss, Director Digital, observed. SIGNATURE: Candi Vera APRN.CNP PATIENT NAME: Sonya Meyer DATE: August 17, 2024 TIME: 11:38 AM [facility] 08-17-2024 Procedure note Associated Ord er(s): BONE MARROW BIOPSY Post-Procedure Diagnose(s): TLL (T-cell lymphoblastic lymphoma) ([facility]) BEDSIDE PROCEDURE NOTE BONE MARROW BIOPSY Date/Start Time: 08/17/2024 11:15 AM Date/Stop Time: 08/17/2024 11:35 AM Performed by: Candi Vera APRN.YEHUDA Authorized by: Candi Vera APRN.CNP Where was Patient When this Procedure was Performed: [facility] Informed Consent Consent Obtained: Written [place] Protocol A moment to CARE was completed. SIGN IN Personnel directly involved with the procedure wore the appropriate PPE. Special Equipment: Yes (OnControl) Patient/Surrogate Stated/Verified: Patient name, Date of , Relevant allergies and Intended procedure TIME OUT Intended patient and procedure match the source document(s). Consent documented and matches the intended procedure. Relevant labs, photos, and/or imaging studies have been reviewed. Correct side/site marked and visible. Medications required for procedure verified. No fire risk assessment and interventions applicable. No implant(s) inserted. Pre-Procedure Details: The area was prepped with povidone Iodine (Betadine) and allowed to dry. A sterile partial body drape was applied following the usual aseptic technique. Medications: Analgesia Sedation CCHS: Tylenol. Local Anesthesia (see MAR): Lidocaine 2% (10 ml) Anxiolysis (see MAR): Lorazapem Procedure Details: Patient Position: Left lateral decubitus Aspiration Laterality: Unilateral Aspiration Site: Right posterior superior iliac crest Biopsy Laterality: Unilateral Biopsy Site: Right posterior sperior iliac crest OnControl biopsy system was used. Using aseptic technique, bone marrow aspiration was performed. A touch prep was taken. Core biopsy was obtained 1 cm. The core biopsy was confirmed. Number of External Insertion Sites: 1 Pressure dressing applied to Bone Marrow site(s). Hemostasis maintained. Assisting Clinician(s): Vivi Pisano APRN.YEHUDA, preformed the entire procedure under my direct supervision. Mayda Ramos APRN.CNP observed. Post-Procedure Details: Patient Tolerance: Patient tolerated the procedure well with no immediate complications Estimated Blood Loss: scant Specimens Sent: bone marrow analysis, bone marrow chromosome analysis, DNA extraction and flow cytometry (ALL T-cell MRD) Teaching Complete: Bone Marrow Biopsy Post-procedure teaching complete Post-procedure care was reviewed and explained. Patient instructed to communicate complaints of redness, swelling, increased or unresolved pain, bleeding chills, bruising, and/or fever. Patient verbalized understanding. SIGN OUT All instruments, equipment, possible retained foreign bodies accounted for. Post-procedure follow-up management communicated and Plan of Care Visit completed when applicable Comments: Libra Doss, Director Digital, observed. SIGNATURE: Candi Vera APRN.CNP PATIENT NAME: Sonya Meyer DATE: August 17, 2024 TIME: 11:38 AM documented in this encounter [facility] 08-17-2024 Nurse Note Additional intake questions: Has the patient had fever, nausea, vomiting, diarrhea, constipation, fatigue for > 1 week? No Does the patient have a decreased appetite? No Does patient want to see a Block Inspector? No (yes to any of above refer patient to schedulers for dietitian appointment) ) Does patient have any new or increased numbness or tingling of extremities? No Is patient interested in fertility information? No Does patient need any prescription refills? No Does patient have an advanced directive in place? Yes, copies are in Epic Electronically Signed By: Ame Polanco LPN AMBULATORY PATIENT EDUCATION NOTE TOPIC: Bone marrow biopsy READINESS TO LEARN COGNITIVE ABILITY: Alert and oriented MOTIVATION TO LEARN: Eager FAMILY SUPPORT: High - Very involved in pt care INSTRUCTION PROVIDED TO: Patient and family member PATIENT LEARNS BEST BY: Individual Instruction Written Instruction - Hand-outs Verbal Instruction FACTORS AFFECTING LEARNING: None PHYSICAL LIMITATIONS AFFECTING LEARNING: None LEARNING RESPONSE DIAGNOSIS: Disease assessment METHOD OF INSTRUCTION: Individual instruction Written instruction/Handouts Verbal instruction PATIENT / FAMILY RESPONSE: Verbalizes understanding of: PRE PROCEDURE MEDICATON-Use of designated livery car driver. INFECTION MANAGEMENT-The signs and symptoms of an infection (chills and fever) and the importance of contacting the physician. PAIN MANAGEMENT-The effective strategies to manage pain, use of Tylenol instead of ASA or Ibuprofen. BIOPSEY SITE-Care of biopsy site, bleeding control and instruction for contacting physician in case of excessive bleeding. FOLLOW-UP PLAN: Patient instructed to call with any further issues SUPPLEMENTAL MATERIAL: Patient Instruction for Home-Care Following a Bone Marrow Biopsy REFERRAL (RECOMMENDATION): None Electronically Signed By Ame Polanco LPN In Department: HEMATOLOGY/ONCOLOGY [facility] 08-16-2024 Telephone encounter Note Prescription Refill Information The patient has been identified by name and date of : Yes Caregiver verified no other encounters exist for this prescription request: Yes Caregiver confirmed with patient/requestor that no other refills are due, in the near future, with this provider at this time: Yes Requested Prescriptions Pending Prescriptions Disp Refills pantoprazole oral liquid 2 mg/mL (CPD) 600 mL 3 Sig: Take 20ml by mouth once daily for 30 days Melissa Neal August 16, 2024 2:25 PM [facility] 08-16-2024 Miscellaneous Notes Prescription Refill Information The patient has been identified by name and date of : Yes Caregiver verified no other encounters exist for this prescription request: Yes Caregiver confirmed with patient/requestor that no other refills are due, in the near future, with this provider at this time: Yes Requested Prescriptions Pending Prescriptions Disp Refills pantoprazole oral liquid 2 mg/mL (CPD) 600 mL 3 Sig: Take 20ml by mouth once daily for 30 days Melissa Neal August 16, 2024 2:25 PM documented in this encounter [facility] 08-16-2024 Instructions Laly Buchanan APRN.CNP - 08/16/2024 10:51 AM EST Novolin to 7 units at 6am, 11 units at 2pm and 7 units at 10pm Follow up in 3 months If you stop your tube feed before our next appointment please let me know as we will need to adjust your insulin doses Verena refill has been sent for you today Thank you for seeing me today Laly Buchanan APRN.YEHUDA documented in this encounter [facility] 08-16-2024 History of Present illness Narrative Endocrinology Virtual Visit This is a virtual visit using [employer] Zoom Video Visit. It required patient-provider interaction for the medical decision making as documented below. I have communicated my name and active licensure. The patient's identity and physical location were verified at the time of this visit. Either the patient or their legal entry level account representative has been informed of the risks and benefits of -- and alternatives to -- treatment through a remote evaluation and consents to proceed with the evaluation remotely. 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 Past medical history significant for uterine fibroids s/p hysterectomy, [employer]. Last HbA1c was 5.8 on 04/21/24. Date of Diagnosis: during admission on 04/17/24 Last HbA1c: Hemoglobin A1C (%) Date Value 04/21/2024 5.8 Family history of diabetes includes Father Complications Microvascular: none Macrovascular: none Health Maintenance Topics Topic Date Due Dilated Retinal Exam Never done Diabetic Foot Exam Never done Prior DM Medications: None Current DM Related Medications: Current Medications 08/12/2024 DIABETES THERAPIES Medication Dosage Pharm Subclass insulin regular human (NOVOLIN R FLEXPEN) 100 unit/mL (3 mL) pen Inject 7 units at 6 AM, 2 PM, and 10 PM (while tube feed infusing) + sliding scale If Blood Glucose (mg/dL) is <110 Give 0 units 111-150 Give 0 units 151-200 Give 1 unit 201-250 Give 2 units 251-300 Give 3 units 301-350 Give 4 units 351-400 Give 5 units >400 Give 5 units and Call physician. Max 36 units per day. Human Insulins - Short Acting insulin regular human (NOVOLIN R REGULAR U100 INSULIN) 100 unit/mL injection Inject subcutaneously 7 units three times daily at 6AM, 2PM and 10 PM with tube feeds plus sliding scale: If Blood Glucose (mg/dL) is <110 Give 0 units 111-150 Give 0 units 151-200 Give 1 unit 201-250 Give 2 units 251-300 Give 3 units 301-350 Give 4 units 351-400 Give 5 units >400 Give 5 units and Call physician. TDD up to 36 units Human Insulins - Short Acting ANTICOAGULANTS Medication Dosage Pharm Subclass enoxaparin (LOVENOX) 80 mg/0.8 mL Expel 0.1 mL then inject remaining 0.7 mL subcutaneously every 12 hours. Low Molecular Weight Heparins OTHER Medication Dosage Pharm Subclass acyclovir (ZOVIRAX) 400 mg tablet Take 1 tablet by mouth two times a day. Herpes Antiviral Agent - Purine Analogs blood sugar diagnostic (ONETOUCH VERIO TEST STRIPS) test strip Check blood sugar every 8 hours while Tube feeding is running (0600, 1400, 2200) Patient instructed to record readings in the log book provided and take to all follow-up appointments, along with meter. Medical Supplies and DME - Blood Glucose Tests Blood-Glucose Sensor (FREESTYLE VERENA 3 PLUS SENSOR) taran Apply new sensor every fifteen (15) days to upper arm. Medical Supplies and DME - Glucose Monitoring Test Supplies cetirizine (ZYRTEC) 10 mg tablet Take 1 tablet by mouth once daily. Antihistamines - 2nd Generation gabapentin (NEURONTIN) 300 mg capsule Take 1 capsule by mouth in the morning and 2 capsules at night Anticonvulsant - EDIL Analogs glucagon (GVOKE HYPOPEN 1-PACK) 1 mg/0.2 mL auto-injector Inject 1 mg subcutaneously as needed. Agents to treat Hypoglycemia (Hyperglycemics) insulin syr/ndl U100 half nimesh (BD INSULIN SYRINGE, HALF UNIT,) 0.3 mL 31 gauge x 5/16 syrg Use with insulin injections three times daily Medical Supplies and DME - Insulin [place]-Syringes and Admin Supplies lancets ([employer] SolutionsUCH DELICA PLUS LANCET) 33 gauge Check blood sugar every 8 hours while Tube feeding is running (0600, 1400, 2200) Patient instructed to record readings in the log book provided and take to all follow-up appointments, along with meter. Medical Supplies and DME - Glucose Monitoring Test Supplies levoFLOXacin (LEVAQUIN) 500 mg tablet Take 1 tablet by mouth daily at 6 am. Fluoroquinolone Antibiotics nutritional supplements (OSMOLITE 1.2 YURI) 0.06 gram-1.2 kcal/mL liqd 55 mL/hr by FEEDING TUBE route continuous. Tube Feeding Formula Type: Osmolite 1.2 or equivalent Rate: 55 ml/hr x 24 hours (1320 ml total volume, 1584 kcals, 73 gm prot) Water Flush: Flush with 70 mL every 4 hours Nutritional Product - Nutritional Therapy ondansetron orally disintegrating (ZOFRAN ODT) 8 mg disintegrating tablet Dissolve 1 tablet by mouth every 8 hours as needed for nausea/vomiting. Antiemetic - Selective Serotonin 5-HT3 Antagonists pantoprazole oral liquid 2 mg/mL (CPD) Take 20ml by mouth once daily for 30 days potassium chloride ER (KLOR-CON) 20 mEq tablet Take 2 tablets by mouth once daily. Minerals and Electrolytes - Potassium, Oral predniSONE (DELTASONE) 50 mg Take 2 tablets by mouth daily with breakfast. Take for 5 days starting on the first day of each cycle (days 1-5). Glucocorticoids Physical Activity: Regular Diet: No specific diet regimen SMBG Frequency of Monitoring: Three times a Day BG Values: 08/10 6am 89 2pm 285 10pm 129 08/11 6am 86 2pm 105 10pm 114 08/12 6am 89 2pm 144 10 pm n/a 11 6am n/a 2pm 326 10 pm 114 (the 326 was d/t stress from not having TF supplies) 08/14 6am 87, 2pm 159 10pm 114 08/15 6am 87 2pm 167 10pm n/a 08/16 6am 89 Hypoglycemia Frequency: None She is on TF 24 hours at 55cc/hr Past History, Medications, Allergies No past medical history on file. No past surgical history on file. ALLERGIES No Known Allergies FAMILY HISTORY Problem Relation Age of Onset other (anemia) Mother Prostate Cancer Father 50 - 59 s/p prostatectomy Diabetes Father type I No Known Problems Maternal Grandmother No Known Problems Maternal Grandfather limited info Cancer Paternal Grandmother 87 unknown Dx No Known Problems Paternal Grandfather Cancer Paternal Uncle 50 - 59 lymph node, unknown pathology Diabetes Brother type I other (anemia) Half-sister Social History Tobacco Use Smoking status: Never Smokeless tobacco: Never Review of Systems REVIEW OF SYSTEMS Answers submitted by the patient for this visit: Core Review of Systems (Submitted on 08/14/2024) Fever : No Night sweats: No Recent unintentional weight change: No Nasal Congestion: No Hearing Loss: No Vision Disturbance: No A cough: No Difficulty Breathing?: No Chest pain: No Irregular heartbeat: No Leg Swelling: No Nausea: No Diarrhea: No Black tarry stools: No Difficulty Urinating?: No Awaken at Night More Than Once to Urinate?: No Joint pain or stiffness: No Muscle aches: No Leg or Foot Discomfort at Night?: No A rash: No Dizziness: No Headaches: No Memory Loss: No Seizures: No Physical examination Limited due to virtual visit Gen: well appearing, NAD Head: atraumatic normocephalic Eyes: EOMI no scleral icterus Neck: no obvious goiter Pulm: resp effort is appropraite Ext: no swelling cyanosis Neuro: hearing and speech normal Previous Laboratory Results LABS Glucose (mg/dL) Date Value 07/16/2024 98 06/25/2024 128 06/04/2024 115 Potassium (mmol/L) Date Value 07/16/2024 3.8 Sodium (mmol/L) Date Value 07/16/2024 141 06/25/2024 140 06/04/2024 141 Chloride (mmol/L) Date Value 07/16/2024 106 06/25/2024 103 06/04/2024 104 CO2 (mmol/L) Date Value 07/16/2024 25 06/25/2024 27 06/04/2024 26 Creatinine (mg/dL) Date Value 07/16/2024 0.39 06/25/2024 0.45 06/04/2024 0.43 BUN (mg/dL) Date Value 07/16/2024 17 06/25/2024 15 06/04/2024 16 Anion Gap (mmol/L) Date Value 07/16/2024 10 06/25/2024 10 06/04/2024 11 Calcium, Total (mg/dL) Date Value 07/16/2024 9.1 06/25/2024 9.5 06/04/2024 9.7 Estimated Glomerular Filtration Rate (mL/min/1.73m ) Date Value 07/16/2024 130 06/25/2024 126 06/04/2024 127 ALT (U/L) Date Value 07/16/2024 65 06/25/2024 60 06/04/2024 97 No results found for: TSH , FREET4 Impression/Recommendations IMPRESSION Sonya Meyer is a 38 year old here for follow up for 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 Glycemic control: Target HbA1C is less than 7.0% per ADA guidelines. Plan Change Novolin to with TF (6am, 2pm, 10pm) Check your blood glucose 3 times per day and record data in logbook and bring to each visit We reviewed glucose targets as: Fasting 80-130, before meals 100-130, and bedtime 100-150 mg/dL. Call the office with blood sugars less than 70 Follow up with me in 3 months Patient to continue to follow up with his PCP and with other consultants regarding his other medical problems. The patient was reminded to check their blood glucose as directed and to record the data in a logbook. This patient was advised to bring their logbook to each office visit. I recommended at least 150 minutes per week of moderate physical activity, such as walking and to reduce carbohydrates and overall caloric intake. 2. Hypertension/BP control: BP goal for patients with diabetes is 130/80. -- This patient is at target on their current regimen 3. Lipids: Target LDL cholesterol in patients with diabetes is less than 100, less than 70 if patient has overt CVD. Several studies have shown cardiovascular benefits of statin therapy in all patients with diabetes over age 40 with at least 1 CVD risk factor. Total Cholesterol, Nonfasting Date Value Ref Range Status 04/21/2024 212 (H) <200 mg/dL Final Comment: <200 mg/dL, Desirable 200-239 mg/dL, Borderline high >239 mg/dL, High HDL Cholesterol, Nonfasting Date Value Ref Range Status 04/21/2024 82 >39 mg/dL Final Comment: 40-59 mg/dL, Acceptable >59 mg/dL, High: Negative risk factor for coronary heart disease <40 mg/dL, Low: Positive risk factor for coronary heart disease LDL Cholesterol, Nonfasting Date Value Ref Range Status 04/21/2024 113 (H) <100 mg/dL Final Comment: <100 mg/dL, Optimal 100-129 mg/dL, Near optimal/above optimal 130-159 mg/dL, Borderline high 160-189 mg/dL, High >189 mg/dL, Very high Secondary prevention optimal LDL Cholesterol levels are recommended to be < 70 mg/dL Triglycerides, Nonfasting Date Value Ref Range Status 04/21/2024 84 <150 mg/dL Final Comment: <150 mg/dL, Normal 150-199 mg/dL, Borderline high 200-499 mg/dL, High >499 mg/dL, Very high -- This patient is currently at target not on statin therapy. 4. Nephropathy screening: Annual measurement of urine albumin excretion is recommended in patients with diabetes. Protein, Urine (no units) Date Value 04/24/2024 1+ (A) Creatinine, Ur Random (UCRR) (mg/dL) Date Value 04/23/2024 64.2 -- This patient does not have microalbuminuria and is not on MICHELLE-I or ARB therapy. --ordered repeat lab today 5. Ophthalmology: Annual dilated eye exams are recommended for patients with type 1 and type 2 diabetes. -- This patient is up to date with their annual eye exam and has no history of retinopathy. -- Last seen March 2024 Laly Buchanan APRN.DATA REVIEW SPECIALIST August 16, 2024 All documentation from previous visit of 07/13/2024 was copied and pasted, documentation has been reviewed and edited as necessary for today's visit. Medical Decision Making: Problems: Low: Stable chronic illness Data: Unique test result(s) reviewed: 3+ Independent interpretation of test from other physician/QHCP Risk: Moderate: Drug management Medical Decision Making Level: 4 - Moderate documented in this encounter [facility] 08-09-2024 History of Present illness Narrative Images from the original note were not included. Sonya Meyer is a 38 y.o. female presents with chief complaint of Follow-up (Patient here for a follow up on her blood pressure. She was never able to get the BP meds because insurance would not cover the liquid form. She stated that she is struggling right now with her medications. ) HPI: HPI SUBJECTIVE: MEDICATIONS: Current Outpatient Medications Medication Instructions acyclovir (ZOVIRAX) 400 mg, 2 times daily cetirizine (ZYRTEC) 10 mg, Daily Enoxaparin Sodium 80 mg, Every 12 hours glucose blood (Royal Treatment Fly FishingTouch Verio) test strip Check blood sugar every 8 hours while Tube feeding is running (0600, 1400, 2200) Patient instructed to record readings in the log book provided and take to all follow-up appointments, along with meter. Gvoke HypoPen 2-Pack 1 mg insulin regular (NovoLIN R FlexPen) 100 UNIT/ML pen Inject 7 units at 6 AM, 2 PM, and 10 PM (while tube feed infusing) + sliding scale If Blood Glucose (mg/dL) is <110 Give 0 units 111-150 Give 0 units 151-200 Give 1 unit 201-250 Give 2 units 251-300 Give 3 units 301-350 Give 4 units 351-400 Give 5 units >400 Give 5 units and Call physician. Max 36 units per day. levoFLOXacin (Levaquin) 500 MG tablet TAKE 1 TABLET BY MOUTH ONCE DAILY AT 6AM Osmolite 1.2 Yuri 55 mL/hr, Continuous potassium chloride CR (Klor-Con M20) 20 MEQ ER tablet 40 mEq, Daily RT predniSONE (DELTASONE) 100 mg, Daily with breakfast propranolol (INDERAL) 20 mg, Oral, 3 times daily I have reviewed and reconciled the history and medication list with the patient today. REVIEW OF SYMPTOMS: Review of Systems OBJECTIVE: Visit Vitals Pulse 104 Wt 159 lb SpO2 99% BMI 30.29 kg/m Smoking Status Never BSA 1.76 m Physical Exam ASSESSMENT AND PLAN: Assessment/Plan Sonya Meyer is a 38 y.o. female presents with chief complaint of Follow-up (Patient here for a follow up on her blood pressure. She was never able to get the BP meds because insurance would not cover the liquid form. She stated that she is struggling right now with her medications. ) HPI: HPI History of Present Illness The patient presents for evaluation of blood pressure. She reports that her blood pressure readings have been inconsistent, with some days showing normal levels and others indicating high blood pressure. She is uncertain if her medication is contributing to these fluctuations, as she typically takes her medication 30 minutes prior to her appointments. She has not experienced any headaches recently. Her last visit to the oncologist was last Friday, during which she received chemotherapy and had her blood pressure checked. She mentions feeling fatigued due to the recent chemotherapy but otherwise feels well. She also experiences acid reflux following her chemotherapy sessions. She has not lost any weight and is tolerating the feeds and chemotherapy well. She is scheduled for a biopsy on 08/17/2024, after which her leukemia status will be assessed. A PET scan is planned for the mass, and based on the results, further treatment will be determined. She is currently facing issues with her insurance regarding the provision of supplies for her feeding tube, which is causing her stress. SUBJECTIVE: MEDICATIONS: Current Outpatient Medications Medication Instructions acyclovir (ZOVIRAX) 400 mg, 2 times daily cetirizine (ZYRTEC) 10 mg, Daily Enoxaparin Sodium 80 mg, Every 12 hours glucose blood (OneTouch Verio) test strip Check blood sugar every 8 hours while Tube feeding is running (0600, 1400, 2200) Patient instructed to record readings in the log book provided and take to all follow-up appointments, along with meter. Gvoke HypoPen 2-Pack 1 mg insulin regular (NovoLIN R FlexPen) 100 UNIT/ML pen Inject 7 units at 6 AM, 2 PM, and 10 PM (while tube feed infusing) + sliding scale If Blood Glucose (mg/dL) is <110 Give 0 units 111-150 Give 0 units 151-200 Give 1 unit 201-250 Give 2 units 251-300 Give 3 units 301-350 Give 4 units 351-400 Give 5 units >400 Give 5 units and Call physician. Max 36 units per day. levoFLOXacin (Levaquin) 500 MG tablet TAKE 1 TABLET BY MOUTH ONCE DAILY AT 6AM Osmolite 1.2 Yuri 55 mL/hr, Continuous potassium chloride CR (Klor-Con M20) 20 MEQ ER tablet 40 mEq, Daily RT predniSONE (DELTASONE) 100 mg, Daily with breakfast propranolol (INDERAL) 20 mg, Oral, 3 times daily REVIEW OF SYMPTOMS: Review of Systems OBJECTIVE: Visit Vitals Pulse 104 Wt 159 lb SpO2 99% BMI 30.29 kg/m Smoking Status Never BSA 1.76 m Vitals: 08/09/24 1524 Pulse: 104 SpO2: 99% Physical Exam Constitutional: Appearance: Normal appearance. She is normal weight. HENT: Head: Normocephalic and atraumatic. Nose: Nose normal. Mouth/Throat: Mouth: Mucous membranes are moist. Eyes: Pupils: Pupils are equal, round, and reactive to light. Cardiovascular: Rate and Rhythm: Normal rate and regular rhythm. Heart sounds: No murmur heard. Pulmonary: Effort: Pulmonary effort is normal. Breath sounds: Normal breath sounds. No wheezing or rhonchi. Musculoskeletal: General: No swelling. Cervical back: Normal range of motion and neck supple. Right lower leg: No edema. Left lower leg: No edema. Skin: General: Skin is warm and dry. Findings: No rash. Neurological: Mental Status: She is alert and oriented to person, place, and time. Sensory: No sensory deficit. Gait: Gait normal. Psychiatric: Mood and Affect: Mood normal. Thought Content: Thought content normal. Judgment: Judgment normal. Ng tube in place ASSESSMENT AND PLAN: Assessment/Plan Problem List Items Addressed This Visit None Visit Diagnoses Primary hypertension (CMS/HCC) Relevant Medications propranolol (Inderal) 20 MG/5ML solution Assessment & Plan 1. Hypertension. Her blood pressure readings have been mostly within the normal range, with a recent reading of 130/70. She has not reported any headaches recently. The current plan is to continue monitoring her blood pressure. If her blood pressure increases, medication will be considered. The appeal for the liquid form of her blood pressure medication has been submitted and may take up to 2 weeks for approval. She is advised to get a week's worth of the medicine from the pharmacy if needed. 2. Lymphoma She recently received chemotherapy and is feeling tired but otherwise fine. A biopsy is scheduled for 08/17/2024 to check if all leukemia is out of her system. A PET scan will follow to assess the mass, and surgery will be considered based on these results. 3. Gastroesophageal Reflux Disease (GERD). She experiences acid reflux following chemotherapy treatments. This has been identified as a side effect of her treatment. She is advised to continue managing symptoms as discussed with her oncology team. 4. Medication Management. She is experiencing issues with her insurance and pharmacy in obtaining supplies for her feeding tube. She has been advised to contact her oncology office directly to resolve these issues and to ensure she has enough supplies. documented in this encounter [facility] 08-06-2024 History of Present illness Narrative Images from the original note were not included. [facility] Department of Pharmacy Pharmacy Office Visit Patient name: Sonya Meyer Primary Plant Protection Superintendent: Dr. Rangel Diagnosis: Acute Lymphoblastic Leukemia (ALL) Date of service: 08/06/24 Does this patient have an active consult agreement?: No Sonya Meyer is a 38 year old patient diagnosed with Acute Lymphoblastic Leukemia (ALL). Pharmacy has been asked to see this patient to assist with medication education Was this patient admitted to the hospital since the last office visit?: No Medication Assessment and Plan: Current Therapy: CVP Cycle 6 Adherence: Patient reports 0 missed dose(s) in the last 30 days Side effects: Patient reports none Dose adjustments: are not indicated based on current organ function Supportive Care: Infectious Disease: acyclovir 400 mg PO BID and pentamadine monthly (last dose: 07/16/2024) CINV: ondansetron GI: pantoprazole Anticoagulation/Antiplatelet: enoxaparin Neuropathy: gabapentin Pain: None Other: prednisone 100 mg on days 1-5 of each chemotherapy cycle Drug Interactions: There are no pertinent drug interactions identified Allergies: Patient confirmed allergies documented in Epic are correct Was medication reconciliation performed?: No Was oncology pharmacy medication education provided?: Yes Counseled patient on CVP Cycle 6, provided calendar Chemotherapy Dosing and Information Prednisone 100 mg once daily on day 1-5 (2 tablets) every 21 days- take with food to prevent stomach upset, take in morning to avoid insomnia tool crib supervisor prescription from [facility] pharmacy on first floor after treatment appointment Cyclophosphamide 1000 mg/m2 IV once Vincristine 2 mg IV once IT methotrexate 15 mg every 21 days Supportive Care Medications Acyclovir 400 mg twice daily - prevents viral infections Pentamidine (inhaled treatment) every 28 days (last dose: 07/16/2024; next dose: ~08/13/2024) - prevents PJP pneumonia Reviewed common side effects associated with regimen-- Objective Current Medication List: No current facility-administered medications for this visit. No current outpatient medications on file. Laboratory Data CBC with diff: WBC 8.93 07/16/2024 RBC 4.37 07/16/2024 Hemoglobin 10.7 07/16/2024 Hematocrit 36.3 07/16/2024 MCV 83.1 07/16/2024 MCH 24.5 07/16/2024 MCHC 29.5 07/16/2024 RDW-CV 20.4 07/16/2024 Platelet Count 481 07/16/2024 MPV 9.4 07/16/2024 Neutrophils % 83.5 07/16/2024 Lymphocytes % 10.6 07/16/2024 Monocytes % 4.5 07/16/2024 Eosinophils % 0.2 07/16/2024 Basophils % 0.2 07/16/2024 Abs Neut (Segs + Bands) 7.45 07/16/2024 Abs Mingo 0.40 07/16/2024 Abs Eosin <0.03 07/16/2024 Abs Baso <0.03 07/16/2024 CMP: Glucose 98 07/16/2024 BUN 17 07/16/2024 Creatinine 0.39 07/16/2024 Sodium 141 07/16/2024 Potassium 3.8 07/16/2024 Chloride 106 07/16/2024 CO2 25 07/16/2024 Protein, Total 7.1 07/16/2024 Albumin 3.7 07/16/2024 Calcium, Total 9.1 07/16/2024 Alkaline Phosphatase 299 07/16/2024 Bilirubin, Total 0.6 07/16/2024 AST 41 07/16/2024 ALT 65 07/16/2024 Medical History: Medication History Social History Tobacco Use Smoking status: Never Smokeless tobacco: Never ALLERGIES No Known Allergies Thank you for allowing us to participate in the care of this patient. Penelope Torres RPh Pager: [phone] August 06, 2024 3:34 PM documented in this encounter [facility] 08-06-2024 Surgery Surgical operation note BRIEF OPERATIVE / PROCEDURE NOTE LOG ID: [id number] SURGERY/PROCEDURE DATE: 08/06/2024 INCISION/PROCEDURE START TIME: 1:34 PM INCISION CLOSE/PROCEDURE END TIME: 1:44 PM SURGEON(S)/PROCEDURALIST(S) AND CREDIT PRODUCTS OFFICER(S): Surgeons and Role: * Bertin Lama APRN.CNP - [place] Physician Wagon Washer: Johnna Pinzon PA-C- Primary SURGERY/PROCEDURE(S): LP with IT injection of chemotherapy ANESTHESIA: Local 5 cc of 1% Lidocaine FINDINGS: Successful access of L3-4, clear CSF, injection of methotrexate (PF) 15 mg, hydrocortisone sodium succinate (PF) 50 mg in NaCl (PF) 0.9% 3 mL ESTIMATED BLOOD LOSS: trace SPECIMENS: None COMPLICATIONS: None CLOSURE TECHNIQUE: Non-primary PRE-OP/PRE-PROCEDURE DIAGNOSIS: TLL (T-cell lymphoblastic lymphoma) POST-OP/POST-PROCEDURE DIAGNOSIS: Same as Preop SIGNATURE: Johnna Pinzon PATIENT NAME: Sonya Meyer DATE: August 06, 2024 TIME: 1:50 PM [facility] 08-06-2024 Surgical operation note BRIEF OPERATIVE / PROCEDURE NOTE LOG ID: [id number] SURGERY/PROCEDURE DATE: 08/06/2024 INCISION/PROCEDURE START TIME: 1:34 PM INCISION CLOSE/PROCEDURE END TIME: 1:44 PM SURGEON(S)/PROCEDURALIST(S) AND CREDIT PRODUCTS OFFICER(S): Surgeons and Role: * Bertin Lama APRN.CNP - [place] Physician Wagon Washer: Johnna Pinzon PA-C- Primary SURGERY/PROCEDURE(S): LP with IT injection of chemotherapy ANESTHESIA: Local 5 cc of 1% Lidocaine FINDINGS: Successful access of L3-4, clear CSF, injection of methotrexate (PF) 15 mg, hydrocortisone sodium succinate (PF) 50 mg in NaCl (PF) 0.9% 3 mL ESTIMATED BLOOD LOSS: trace SPECIMENS: None COMPLICATIONS: None CLOSURE TECHNIQUE: Non-primary PRE-OP/PRE-PROCEDURE DIAGNOSIS: TLL (T-cell lymphoblastic lymphoma) POST-OP/POST-PROCEDURE DIAGNOSIS: Same as Preop SIGNATURE: Johnna Pinzon PATIENT NAME: Sonya Meyer DATE: August 06, 2024 TIME: 1:50 PM documented in this encounter [facility] 07-16-2024 History of Present illness Narrative Summary: Albuterol and Pentamidine RESPIRATORY THERAPY PROGRESS NOTE SERVICE DATE: 07/16/2024 SERVICE TIME: 1510 1510: Albuterol 2.5mg/3mL given as ordered, pre treatment for pentamidine. Pre: HR 90, SPO2 on RA 98, RR 16. Breath sounds diminished throughout. Post HR 96, RR 16, SpO2 99%. 1520: Pentamidine 300 mg given as ordered. Diluted with 6cc sterile water. Patient tolerated tx well. NARD. Post: Hr 98, RR 16 and SpO2 99%. BS unchanged SIGNATURE: Kamilla Todd RRT PATIENT NAME: Sonya Meyer DATE: July 16, 2024 TIME: 3:12 PM PAGER/CONTACT #: [phone] documented in this encounter [facility] 07-16-2024 History of Present illness Narrative Images from the original note were not included. [facility] Department of Pharmacy Pharmacy Office Visit Patient name: Sonya Meyer Primary Plant Protection Superintendent: Dr. Rangel Diagnosis: Acute Lymphoblastic Leukemia (ALL) Date of service: 07/16/24 Does this patient have an active consult agreement?: No Sonya Meyer is a 38 year old patient diagnosed with Acute Lymphoblastic Leukemia (ALL). Pharmacy has been asked to see this patient to assist with supportive care and side effect management Was this patient admitted to the hospital since the last office visit?: No Medication Assessment and Plan: Current Therapy: CVP Adherence: Patient reports 0 missed dose(s) in the last 30 days Side effects: Patient reports none Dose adjustments: are not indicated based on current organ function Supportive Care: Infectious Disease: acyclovir 400 mg PO BID, levofloxacin 500 mg PO daily during periods of neutropenia, and pentamadine monthly CINV: ondansetron GI: pantoprazole Anticoagulation/Antiplatelet: enoxaparin Neuropathy: gabapentin Pain: None Drug Interactions: There are no pertinent drug interactions identified Allergies: Patient confirmed allergies documented in Epic are correct Additional Information: Patient reports doing well. Calendar provided and reviewed Was medication reconciliation performed?: No Was oncology pharmacy medication education provided?: No Current Medication List: Current Outpatient Medications Medication Sig levoFLOXacin (LEVAQUIN) 500 mg tablet Take 1 tablet by mouth daily at 6 am. acyclovir (ZOVIRAX) 400 mg tablet Take 1 tablet by mouth two times a day. gabapentin (NEURONTIN) 300 mg capsule Take 1 capsule by mouth in the morning and 2 capsules at night ondansetron orally disintegrating (ZOFRAN ODT) 8 mg disintegrating tablet Dissolve 1 tablet by mouth every 8 hours as needed for nausea/vomiting. Blood-Glucose Sensor (WorkFlowySTYLE VERENA 3 PLUS SENSOR) taran Apply new sensor every fifteen (15) days to upper arm. cetirizine (ZYRTEC) 10 mg tablet Take 1 tablet by mouth once daily. pantoprazole oral liquid 2 mg/mL (CPD) Take 20ml by mouth once daily for 30 days predniSONE (DELTASONE) 50 mg Take 2 tablets by mouth daily with breakfast. Take for 5 days starting on the first day of each cycle (days 1-5). (Patient not taking: Reported on 07/01/2024) enoxaparin (LOVENOX) 80 mg/0.8 mL Expel 0.1 mL then inject remaining 0.7 mL subcutaneously every 12 hours. potassium chloride ER (KLOR-CON) 20 mEq tablet Take 2 tablets by mouth once daily. (Patient not taking: Reported on 06/18/2024) blood sugar diagnostic (ONETOUCH VERIO TEST STRIPS) test strip Check blood sugar every 8 hours while Tube feeding is running (0600, 1400, 2200) Patient instructed to record readings in the log book provided and take to all follow-up appointments, along with meter. lancets (YebhiTOUCH DELICA PLUS LANCET) 33 gauge Check blood sugar every 8 hours while Tube feeding is running (0600, 1400, 2200) Patient instructed to record readings in the log book provided and take to all follow-up appointments, along with meter. Insulin [place], Disposable, (BD ULTRA-FINE ALYSSA PEN NEEDLE) 32 gauge x 5/32 Use three times a day. glucagon (GVOKE HYPOPEN 1-PACK) 1 mg/0.2 mL auto-injector Inject 1 mg subcutaneously as needed. insulin regular human (NOVOLIN R FLEXPEN) 100 unit/mL (3 mL) pen Inject 7 units at 6 AM, 2 PM, and 10 PM (while tube feed infusing) + sliding scale If Blood Glucose (mg/dL) is <110 Give 0 units 111-150 Give 0 units 151-200 Give 1 unit 201-250 Give 2 units 251-300 Give 3 units 301-350 Give 4 units 351-400 Give 5 units >400 Give 5 units and Call physician. Max 36 units per day. insulin regular human (NOVOLIN R REGULAR U100 INSULIN) 100 unit/mL injection Inject subcutaneously 7 units three times daily at 6AM, 2PM and 10 PM with tube feeds plus sliding scale: If Blood Glucose (mg/dL) is <110 Give 0 units 111-150 Give 0 units 151-200 Give 1 unit 201-250 Give 2 units 251-300 Give 3 units 301-350 Give 4 units 351-400 Give 5 units >400 Give 5 units and Call physician. TDD up to 36 units insulin syr/ndl U100 half nimesh (BD INSULIN SYRINGE, HALF UNIT,) 0.3 mL 31 gauge x 5/16 syrg Use with insulin injections three times daily nutritional supplements (OSMOLITE 1.2 YURI) 0.06 gram-1.2 kcal/mL liqd 55 mL/hr by FEEDING TUBE route continuous. Tube Feeding Formula Type: Osmolite 1.2 or equivalent Rate: 55 ml/hr x 24 hours (1320 ml total volume, 1584 kcals, 73 gm prot) Water Flush: Flush with 70 mL every 4 hours Current Facility-Administered Medications Medication Dose Route Frequency albuterol 2.5 mg /3 mL (0.083 %) 2.5 mg (PROVENTIL) 2.5 mg INHALATION PRN albuterol HFA 90 mcg/actuation 2 Puff (PROVENTIL HFA, VENTOLIN HFA) 2 Puff INHALATION PRN pentamidine 300 mg nebulizer solution (NEBUPENT) 300 mg INHALATION q 4 WEEKS Facility-Administered Medications Ordered in Other Visits Medication Dose Route Frequency palonosetron 0.25 mg injection (ALOXI) 0.25 mg INTRAVENOUS ONCE dexAMETHasone 10 mg in NaCl 0.9% 50 mL (DECADRON) 10 mg INTRAVENOUS ONCE NaCl 0.9% iv bolus 1,000 mL 1,000 mL INTRAVENOUS ONCE vinCRIStine 2 mg in NaCl 0.9% 60 mL (ONCOVIN) 2 mg INTRAVENOUS ONCE cycloPHOSphamide 1,810 mg in NaCl 0.9% 200.5 mL (CYTOXAN) 1,000 mg/m2 (Treatment Plan Recorded) INTRAVENOUS ONCE NaCl 0.9% iv infusion 500-999 mL/hr INTRAVENOUS PRN diphenhydrAMINE 50 mg injection (BENADRYL) 50 mg INTRAVENOUS PRN hydrocortisone sodium succinate (PF) 100 mg injection (Solu-CORTEF) 100 mg INTRAVENOUS PRN EPINEPHrine 1 mg/mL (1 mL) 0.3 mg injection 0.3 mg INTRAMUSCULAR PRN pentamidine 300 mg nebulizer solution (NEBUPENT) 300 mg INHALATION ONCE albuterol 2.5 mg /3 mL (0.083 %) 2.5 mg (PROVENTIL) 2.5 mg INHALATION ONCE Laboratory Data CBC with diff: WBC 8.93 07/16/2024 RBC 4.37 07/16/2024 Hemoglobin 10.7 07/16/2024 Hematocrit 36.3 07/16/2024 MCV 83.1 07/16/2024 MCH 24.5 07/16/2024 MCHC 29.5 07/16/2024 RDW-CV 20.4 07/16/2024 Platelet Count 481 07/16/2024 MPV 9.4 07/16/2024 Neutrophils % 83.5 07/16/2024 Lymphocytes % 10.6 07/16/2024 Monocytes % 4.5 07/16/2024 Eosinophils % 0.2 07/16/2024 Basophils % 0.2 07/16/2024 Abs Neut (Segs + Bands) 7.45 07/16/2024 Abs Mingo 0.40 07/16/2024 Abs Eosin <0.03 07/16/2024 Abs Baso <0.03 07/16/2024 CMP: Glucose 98 07/16/2024 BUN 17 07/16/2024 Creatinine 0.39 07/16/2024 Sodium 141 07/16/2024 Potassium 3.8 07/16/2024 Chloride 106 07/16/2024 CO2 25 07/16/2024 Protein, Total 7.1 07/16/2024 Albumin 3.7 07/16/2024 Calcium, Total 9.1 07/16/2024 Alkaline Phosphatase 299 07/16/2024 Bilirubin, Total 0.6 07/16/2024 AST 41 07/16/2024 ALT 65 07/16/2024 Medical History: Medication History Social History Tobacco Use Smoking status: Never Smokeless tobacco: Never ALLERGIES No Known Allergies Thank you for allowing us to participate in the care of this patient. 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 Presented with large anterior mediastinal mass (~14 cm) causing SVC syndrome and LIJ thrombus. No bone marrow or ADJUSTER LEADER involvement at diagnosis Current treatment - Cyclophosphamide, vincristine and prednisone (CVP) repeated every 21 days with intrathecal methotrexate and bortezomib C1D1 - 04/23/2024 C2D1 - 05/14/2024 C3D1 - 06/04/2024 C4D1 - 06/25/2024 C5D1 - 07/16/2024 IT Methotrexate administered on 05/03/2024, 05/10/2024, 06/08/2024 and 06/25/2024. Subcutaneous bortezomib - on 04/30/2024, 05/14/2024, 05/19/2024 Transfusion status - Jevoha's witness. No blood product administration. Interval History - Labs done at the [facility] [place] from 07/15/2024 shows WBC at 7.4 (ANC - 5800, lymphocytes - 900), hemoglobin of 10.8 g/dl and platelets at 514,000. She denies any fever/chills or URI/UTI/GI symptoms. She reports stable pain in bilateral thighs (L>R) radiating to thighs, and sharp pain at level below bilateral knees. She takes gabapentin intake. She is continuing with her nasogastric tube feedings (55 ml/hr) and takes all her medications crushed through the nasogastric tube. Impression: This is a 38-year-old lady who is Roman Catholic with early T-cell precursor lymphoblastic leukemia/lymphoma who is here for follow up. 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 She has completed four cycles of CVP with intrathecal methotrexate and bortezomib (three doses, discontinued due to peripheral neurotoxicity). She will start cycle 5 of CVP today. She will continue with intrathecal methotrexate administrations for a total of at least six doses (she has completed four so far). During her initial hospitalization, Rad Onc was consulted while to assess the role of XRT to mediastinal mass and consensus was not to pursue palliative XRT. The plan of care based on today's assessment is as follows - - To complete six cycles of CVP with intrathecal methotrexate and then a whole body FDG-PET scan to evaluate treatment response. At that time we will also order a T-cell MRD on peripheral blood. We will not pursue bone marrow biopsy for treatment response evaluation as it was not involved at the time of diagnosis. - The treatment regimen is CVP cycles repeated every 21 days - cyclophosphamide (1000 mg/m2 as intravenous infusion once on day 1; vincristine 2 mg intravenous injection once on day 1; and prednisone 100 mg once daily on days 1-45 of every 21 days. The plan is to do the 6th cycle at Dr. Erickson's office. The sixth cycle of CVP begins on 08/05/2024. - For intrathecal chemotherapy with methotrexate we will arrange it here at the [facility]. - She also receives inhaled pentamidine for PJP prophylaxis on day 1 of her CVP cycle. - She will continue with prophylactic acyclovir and prophylactic levofloxacin (only if ANC is below 500) - All her medications are to be crushed and administered through nasogastric tube. - Check CBC with differential and CMP once a week and please use pediatric tubes for lab draws. - Transfuse leukoreduced and irradiated blood products - 1 unit of red blood cells for hemoglobin 7-8 g/dl and 1 unit of platelets for platelet counts equal to or less than 10,000. However, the number of red blood cells or platelet units to be transfused in cases of symptomatic anemia or active bleeding or parameters outside the mentioned range will be at the discretion of the treating physician. Premedications for transfusion include benadryl 25 mg and tylenol 650 mg through nasogastric tube. 2) Steroid induced hyperglycemia - Continue with blood glucose assessment and insulin use to manage hypoglycemia when on steroids. 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 Continue Lovenox 1 mg/kg BID. 4) Elevated transaminases - Liver MRI (05/06/24) showed diffuse hepatic steatosis. Await today's labs. 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 No acute surgical intervention recommended as of now. Will hold off on PEG tube placement at this time, maintain corpak. Once she is completed with six cycles of CVP, we will reconsult Thoracic Surgery for definitive surgery for TEF. 6) Right Breast nodule: Underwent breast biopsy on 04/20/2024 demonstrating no blastoid features and consistent with benign fibroadenoma. No active intervention required. Clinical course, treatment dates, hospitalizations and response assessments - (a) Presenting symptoms - Transferred to [facility] on 04/17/2024 after presenting to outside hospital with ~2 weeks of dyspnea and cough, followed by facial swelling. 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 A bone marrow biopsy was performed on 04/19/2024 which showed no evidence of marrow involvement. NGS testing was performed and notable for a TP53 mutation. Given patient's synagogue preferences ([employer]), she was started on cycle 1 CVP therapy on 04/23/2024. Her treatment course was complicated by acute hypoxic respiratory failure secondary to multifactorial issues (right lower lobe pulmonary embolism, left lower lobe pneumonia, superior vena cava syndrome), however was able to be weaned back down to room air. ID was consulted, and patient completed course of Zosyn from 04/19 to 04/26. Vascular medicine was consulted, and patient was started on therapeutic doses of Lovenox. While admitted, Ms. Meyer had repeat episodes of dysphagia, so a Corpak was placed and speech pathology was consulted. Ms. 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 Thoracic surgery was consulted and recommended no acute surgical intervention given large mediastinal mass with plan for outpatient follow-up post-discharge. Her course was also complicated by transaminitis for which she underwent a liver MRI which revealed diffuse hepatic steatosis and a contracted gallbladder with stones but without any suspicious liver lesions nor lymphoproliferative involvement of the abdomen. Hepatology was consulted and it was thought to be due to Injury from vincristine (vinca alkaloid) vs. Bortezomib vs. possible leukemia infiltrative process. Ms. Meyer was also noted to have steroid-induced hyperglycemia for which endo was consulted and recommended insulin at discharge. She was seen by a certified breastfeeding educator and educated on use with plans to follow up with Endocrinology outpatient post discharge. Prior to discharge, Ms. Meyer was educated on line care, TF care, and administration of Lovenox/Insulin. She was started on C2 of CVP on 05/14/2024 without complication and subsequently discharged on 05/17/2024. (b) Baseline diagnostic evaluations - Presented to [facility] ED on 04/07 with complaints of SOB and cough x2 weeks and new facial swelling. 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 CT Chest 04/18: Large anterior mediastinal mass reportedly related to known T-cell LBL. Attempted to get LN Biopsy slides from [facility]: called and spoke to path lab, and fax request sent. CT-guided core needle mediastinal biopsy (04/23/24) at [facility] Demonstrated fragmented cores of lymphoid tissue showing areas with significant crush artifact limiting morphologic evaluation. A relatively diffuse proliferation of intermediate to large lymphoid cells is seen with mildly irregular nuclear contours, finely dispersed chromatin, inconspicuous nucleoli and scant cytoplasm. Apoptotic bodies and mitoses are present. Immunohistochemical/in situ hybridization stains were performed on sections from block A1 for further evaluation of the atypical lymphoid proliferation. CD3 shows numerous positive cells throughout that coexpress CD34, NOTCH1, LMO2, CD5 (minor subset) and are negative for CD20, TdT, CD30, ALK1, CD2 and chromogenic in situ hybridization for EBV-encoded small RNA (JUANITO). Ki-67 proliferation fraction is difficult to interpret due to significant crush artifact, but appears high with many positive cells. Flow cytometric immunophenotypic studies demonstrate an abnormal T-cell population that is positive for CD3, CD4, CD7 with very dim to negative CD5 expression and monotypic TRBC1 expression. The abnormal T cells are negative for CD2 and CD8. NGS: TP53 mutation p.R248Q, [id number], c.743G>A, VAF: 93.8% RNA sequencing: No fusions detected. FLT3 Internal Tandem Duplication (ITD) mutation: Not Detected -S/P BMBx (04/19/24) :No e/o leukemia -S/P breast biopsy on 04/20 - no blastoid features; benign fibroadenoma -LP with IT chemo (05/03/24): Negative -LP with IT chemo (05/10/24) - Negative -Repeat CT Chest (05/10/2024) - Slightly decreased large anterior and superior mediastinal mass -PET/CT (05/12/2024) - anterior mediastinal mass w/ heterogenous uptake and areas suggestive of necrosis Review of systems other than interval history: Constitutional: No fever, chills, night sweats, anorexia or malaise. Eyes: No change in vision, blurriness, diplopia, redness, or irritation. ENT: No mouth sores or bleeding gums; no hoarseness of voice. . No epistaxis or other nasal problems. No changes in hearing, vertigo, or tinnitus. Respiratory: No coughing, wheezing, dyspnea at rest, exertional dyspnea, or hemoptysis. Cardiovascular: No anginal symptoms, palpitations, orthopnea, PND, syncopal events or presyncopal events. Gastrointestinal: Occasional nausea, No vomiting, heartburn or acid reflux, diarrhea, constipation or abdominal cramping. Bowel habit is unchanged; and no melena or hematochezia. Genitourinary: No urgency, frequency, dysuria, or hematuria. No hesitancy or decreased urinary stream, incomplete emptying or ncontinence. Musculoskeletal: Per HPI Skin: Abdominal skin has anticipatory rash from lovenox injections. Neurological: No syncope, near-syncope, or seizures or alteration in sensorium or motor strength. Psychiatric: Memory, short term & fdc intact; no disturbance in sleep pattern and denies symptoms of depression. Endocrine: Negative for temperature intolerance, unusual sweating, or symptoms of glucose intolerance. Hematologic/Lymphatic: Negative for prolonged bleeding, easy bruising, and swollen nodes. No lower extremity edema. Allergic/Immunologic: No itching, or jaundice. Past medical and surgical history: - Uterine fibroids s/p hysterectomy Family and social history: Paternal grandmother Stomach cancer Father's brother: Lump in neck, unclear cancer Father: Prostate cancer Allergies: None Physical Examination: Vitals: BP 152/97 Pulse 96 Temp 36.2 C (97.2 F) (Temporal) Resp 20 Wt 71.6 kg (157 lb 13.6 oz) LMP (LMP Unknown) SpO2 100% BMI 31.88 kg/m General: of very pleasant disposition, sitting comfortably in wheel chair, with NG tube and Tube-feeds running, in no acute distress, accompanied by her ECOG performance is 1 HEENT: EOMI; PERRL, no thrush or petechiae Neck: Supple, no thyromegaly, CV: Tachycardia, S1S2 normal, no M/R/G Chest: Clear to auscultation bilaterally without any wheezes, rales or rhonchi. Abd: soft, obese, NT/ND, + BS, no hepatosplenomegaly Ext: No edema Neuro: No focal deficits LN: No supraclavicular, infraclavicular, axillary, epitrochlear or inguinal lymphadenopathy. Current Medications: Reviewed from [facility] and confirmed with the patient. Labs: Reviewed from [facility] and integrated in assessment and plan. Marcelina Rangel MD PhD MPH Associate Staff Hematologic Oncology and Blood Disorders Pager [phone] Date of service: 07/16/2024 I spent a total of 40 minutes on the date of the service which included preparing to see the patient, [id number] patient care, completing clinical documentation, obtaining and/or reviewing separately obtained history, performing a medically appropriate examination, counseling and educating the patient/family/caregiver, ordering medications, tests, or procedures, independently interpreting laboratory and imaging results (not separately reported), communicating results to the patient/family/caregiver, and care coordination (not separately reported). documented in this encounter [facility] 07-16-2024 Nurse Note Additional intake questions: Has the patient had fever, nausea, vomiting, diarrhea, constipation, fatigue for > 1 week? Yes, nausea, fatigue, and Provider Notified Does the patient have a decreased appetite? No Does patient want to see a Block Inspector? No (yes to any of above refer patient to schedulers for dietitian appointment) ) Does patient have any new or increased numbness or tingling of extremities? No Is patient interested in fertility information? No Does patient need any prescription refills? Yes, Provider Notified Does patient have an advanced directive in place? Yes, copies are in [employer] [facility] 07-16-2024 Nurse Note Additional intake questions: Has the patient had fever, nausea, vomiting, diarrhea, constipation, fatigue for > 1 week? Yes, nausea, fatigue, and Provider Notified Does the patient have a decreased appetite? No Does patient want to see a Block Inspector? No (yes to any of above refer patient to schedulers for dietitian appointment) ) Does patient have any new or increased numbness or tingling of extremities? No Is patient interested in fertility information? No Does patient need any prescription refills? Yes, Provider Notified Does patient have an advanced directive in place? Yes, copies are in [employer] documented in this encounter [facility] 07-16-2024 Telephone encounter Note Requested Rx's routed to Dr. Rangel awaiting signature. [facility] 07-16-2024 Miscellaneous Notes Requested Rx's routed to Dr. Rangel awaiting signature. Sonya Meyer is calling Marcelina Rangel MD, PhD today regarding 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 - Other (Gabapentin & Zofran) Patient has been identified by name and birthdate. Patient requested for refill of Levaquin & Acyclovir. I initiated the request and have routed it to the provider. She also enquired if she needs to take the Gabapentin anymore. If yes, she requested refill for the same and also, requested refill for Zofran, which is not listed on patient's chart. [facility] best pharmacy is [facility], as listed on the file. Requesting response back: [phone] (home) Helga España July 15, 2024 documented in this encounter [facility] 07-15-2024 Telephone encounter Note Prescription Refill Information The patient has been identified by name and date of : Yes Caregiver verified no other encounters exist for this prescription request: Yes Caregiver confirmed with patient/requestor that no other refills are due, in the near future, with this provider at this time: Yes The last office visit in the department: 06/25/2024 Does the patient have a future office visit with this provider/department: Yes Requested Prescriptions Pending Prescriptions Disp Refills levoFLOXacin (LEVAQUIN) 500 mg tablet 30 tablet 0 Sig: Take 1 tablet by mouth daily at 6 am. acyclovir (ZOVIRAX) 400 mg tablet 60 tablet 0 Sig: Take 1 tablet by mouth two times a day. Patient has 2 pills left for each medication. Helga España July 15, 2024 3:52 PM [facility] 07-15-2024 Miscellaneous Notes Prescription Refill Information The patient has been identified by name and date of : Yes Caregiver verified no other encounters exist for this prescription request: Yes Caregiver confirmed with patient/requestor that no other refills are due, in the near future, with this provider at this time: Yes The last office visit in the department: 06/25/2024 Does the patient have a future office visit with this provider/department: Yes Requested Prescriptions Pending Prescriptions Disp Refills levoFLOXacin (LEVAQUIN) 500 mg tablet 30 tablet 0 Sig: Take 1 tablet by mouth daily at 6 am. acyclovir (ZOVIRAX) 400 mg tablet 60 tablet 0 Sig: Take 1 tablet by mouth two times a day. Patient has 2 pills left for each medication. Helga España July 15, 2024 3:52 PM documented in this encounter [facility] 07-15-2024 Telephone encounter Note Sonya Meyer is calling Marcelina Rangel MD, PhD today regarding 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 - Other (Gabapentin & Zofran) Patient has been identified by name and birthdate. Patient requested for refill of Levaquin & Acyclovir. I initiated the request and have routed it to the provider. She also enquired if she needs to take the Gabapentin anymore. If yes, she requested refill for the same and also, requested refill for Zofran, which is not listed on patient's chart. [facility], as listed on the file. Requesting response back: [phone] (home) Helga España July 15, 2024 [facility] 07-13-2024 Instructions Laly Buchanan APRN.YEHUDA - 07/13/2024 12:50 PM EDT Novolin 7 units at 6am, 11 units at 2pm, 7 units at 10pm Placed an order for a Verena 3 sensor, one you receive it please let me kow if you have any questions or need help setting it up Follow up in 1 month Thank you for seeing me today, Laly Buchnaan APRN.DATA REVIEW SPECIALIST documented in this encounter [facility] 07-13-2024 History of Present illness Narrative Endocrinology Virtual Visit This is a virtual visit using MyChart Zoom Video Visit. It required patient-provider interaction for the medical decision making as documented below. I have communicated my name and active licensure. The patient's identity and physical location were verified at the time of this visit. Either the patient or their legal entry level account representative has been informed of the risks and benefits of -- and alternatives to -- treatment through a remote evaluation and consents to proceed with the evaluation remotely. 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 This is a virtual visit using MyChart Zoom Video Visit. It required patient-provider interaction for the medical decision making as documented below. I have communicated my name and active licensure. The patient's identity and physical location were verified at the time of this visit. Either the patient or their legal entry level account representative has been informed of the risks and benefits of -- and alternatives to -- treatment through a remote evaluation and consents to proceed with the evaluation remotely. 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 Past medical history significant for uterine fibroids s/p hysterectomy, Roman Catholic. Last HbA1c was 5.8 on 04/21/24. Date of Diagnosis: during admission on 04/17/24 Last HbA1c: Hemoglobin A1C (%) Date Value 04/21/2024 5.8 Family history of diabetes includes Father Complications Microvascular: none Macrovascular: none Diabetic Foot and Retinal Eye Exam not Overdue Prior DM Medications: None Current DM Related Medications: Current Medications 07/12/2024 DIABETES THERAPIES Medication Dosage Pharm Subclass insulin regular human (NOVOLIN R FLEXPEN) 100 unit/mL (3 mL) pen Inject 7 units at 6 AM, 2 PM, and 10 PM (while tube feed infusing) + sliding scale If Blood Glucose (mg/dL) is <110 Give 0 units 111-150 Give 0 units 151-200 Give 1 unit 201-250 Give 2 units 251-300 Give 3 units 301-350 Give 4 units 351-400 Give 5 units >400 Give 5 units and Call physician. Max 36 units per day. Human Insulins - Short Acting insulin regular human (NOVOLIN R REGULAR U100 INSULIN) 100 unit/mL injection Inject subcutaneously 7 units three times daily at 6AM, 2PM and 10 PM with tube feeds plus sliding scale: If Blood Glucose (mg/dL) is <110 Give 0 units 111-150 Give 0 units 151-200 Give 1 unit 201-250 Give 2 units 251-300 Give 3 units 301-350 Give 4 units 351-400 Give 5 units >400 Give 5 units and Call physician. TDD up to 36 units Human Insulins - Short Acting ANTICOAGULANTS Medication Dosage Pharm Subclass enoxaparin (LOVENOX) 80 mg/0.8 mL Expel 0.1 mL then inject remaining 0.7 mL subcutaneously every 12 hours. Low Molecular Weight Heparins OTHER Medication Dosage Pharm Subclass acyclovir (ZOVIRAX) 400 mg tablet Take 1 tablet by mouth two times a day. Herpes Antiviral Agent - Purine Analogs blood sugar diagnostic (YebhiTOUCH VERIO TEST STRIPS) test strip Check blood sugar every 8 hours while Tube feeding is running (0600, 1400, 2200) Patient instructed to record readings in the log book provided and take to all follow-up appointments, along with meter. Medical Supplies and DME - Blood Glucose Tests cetirizine (ZYRTEC) 10 mg tablet Take 1 tablet by mouth once daily. Antihistamines - 2nd Generation gabapentin (NEURONTIN) 300 mg capsule Take 1 capsule by mouth in the morning and 2 capsules at night Anticonvulsant - EDIL Analogs glucagon (GVOKE HYPOPEN 1-PACK) 1 mg/0.2 mL auto-injector Inject 1 mg subcutaneously as needed. Agents to treat Hypoglycemia (Hyperglycemics) Insulin [place]down, Disposable, (BD ULTRA-FINE ALYSSA PEN NEEDLE) 32 gauge x 5/32 Use three times a day. Medical Supplies and DME - Insulin Ashdown-Syringes and Admin Supplies insulin syr/ndl U100 half nimesh (BD INSULIN SYRINGE, HALF UNIT,) 0.3 mL 31 gauge x 5/16 syrg Use with insulin injections three times daily Medical Supplies and DME - Insulin Ashdown-Syringes and Admin Supplies lancets (CareShare DELTwentyFour6 PLUS LANCET) 33 gauge Check blood sugar every 8 hours while Tube feeding is running (0600, 1400, 2200) Patient instructed to record readings in the log book provided and take to all follow-up appointments, along with meter. Medical Supplies and DME - Glucose Monitoring Test Supplies levoFLOXacin (LEVAQUIN) 500 mg tablet Take 1 tablet by mouth daily at 6 am. Fluoroquinolone Antibiotics nutritional supplements (OSMOLITE 1.2 YURI) 0.06 gram-1.2 kcal/mL liqd 55 mL/hr by FEEDING TUBE route continuous. Tube Feeding Formula Type: Osmolite 1.2 or equivalent Rate: 55 ml/hr x 24 hours (1320 ml total volume, 1584 kcals, 73 gm prot) Water Flush: Flush with 70 mL every 4 hours Nutritional Product - Nutritional Therapy pantoprazole oral liquid 2 mg/mL (CPD) Take 20ml by mouth once daily for 30 days potassium chloride ER (KLOR-CON) 20 mEq tablet Take 2 tablets by mouth once daily. Minerals and Electrolytes - Potassium, Oral predniSONE (DELTASONE) 50 mg Take 2 tablets by mouth daily with breakfast. Take for 5 days starting on the first day of each cycle (days 1-5). Glucocorticoids Physical Activity: Regular Diet: No specific diet regimen SMBG Frequency of Monitoring: Three times a Day BG Values: 6AM: 65 (06/28) 74 (06/27) 105 (06/26) 7AM: 103 (06/28) 10AM: 181 (06/30) 2PM: 205, 209 (06/29-06/30) 6PM: 189 (06/29) 10PM: 141 (06/27), 147 (06/26) Hypoglycemia Frequency: None She is on TF 24 hours at 55cc/hr Past History, Medications, Allergies No past medical history on file. No past surgical history on file. ALLERGIES No Known Allergies FAMILY HISTORY Problem Relation Age of Onset other (anemia) Mother Prostate Cancer Father 50 - 59 s/p prostatectomy Diabetes Father type I No Known Problems Maternal Grandmother No Known Problems Maternal Grandfather limited info Cancer Paternal Grandmother 87 unknown Dx No Known Problems Paternal Grandfather Cancer Paternal Uncle 50 - 59 lymph node, unknown pathology Diabetes Brother type I other (anemia) Half-sister Social History Tobacco Use Smoking status: Never Smokeless tobacco: Never Review of Systems REVIEW OF SYSTEMS GENERAL: No weight loss, malaise or fevers RESPIRATORY: Negative for cough, hemoptysis, wheezing, COPD, dyspnea or shortness of breath CARDIOVASCULAR: Negative for chest pain, leg swelling, hypertension, CHF or palpitations GI: No nausea, vomiting, or diarrhea : No history of dysuria, frequency or incontinence Physical examination Limited due to virtual visit Gen: well appearing, NAD Head: atraumatic normocephalic Eyes: EOMI no scleral icterus Neck: no obvious goiter Pulm: resp effort is appropraite Ext: no swelling cyanosis Neuro: hearing and speech normal Previous Laboratory Results LABS Glucose (mg/dL) Date Value 06/25/2024 128 06/04/2024 115 05/28/2024 139 Potassium (mmol/L) Date Value 06/25/2024 4.3 Sodium (mmol/L) Date Value 06/25/2024 140 06/04/2024 141 05/28/2024 141 Chloride (mmol/L) Date Value 06/25/2024 103 06/04/2024 104 05/28/2024 104 CO2 (mmol/L) Date Value 06/25/2024 27 06/04/2024 26 05/28/2024 27 Creatinine (mg/dL) Date Value 06/25/2024 0.45 06/04/2024 0.43 05/28/2024 0.45 BUN (mg/dL) Date Value 06/25/2024 15 06/04/2024 16 05/28/2024 15 Anion Gap (mmol/L) Date Value 06/25/2024 10 06/04/2024 11 05/28/2024 10 Calcium, Total (mg/dL) Date Value 06/25/2024 9.5 06/04/2024 9.7 05/28/2024 9.2 Estimated Glomerular Filtration Rate (mL/min/1.73m ) Date Value 06/25/2024 126 06/04/2024 127 05/28/2024 126 ALT (U/L) Date Value 06/25/2024 60 06/04/2024 97 05/28/2024 201 No results found for: TSH , FREET4 Impression/Recommendations IMPRESSION Sonya Meyer is a 38 year old here for evaluation of 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 Glycemic control: Target HbA1C is less than 7.0% per ADA guidelines. Plan Change Novolin to with TF (6am, 2pm, 10pm) Check your blood glucose 3 times per day and record data in logbook and bring to each visit We reviewed glucose targets as: Fasting 80-130, before meals 100-130, and bedtime 100-150 mg/dL. Call the office with blood sugars less than 70 Follow up with me in 1 month Patient to continue to follow up with his PCP and with other consultants regarding his other medical problems. The patient was reminded to check their blood glucose as directed and to record the data in a logbook. This patient was advised to bring their logbook to each office visit. I recommended at least 150 minutes per week of moderate physical activity, such as walking and to reduce carbohydrates and overall caloric intake. 2. Hypertension/BP control: BP goal for patients with diabetes is 130/80. -- This patient is at target on their current regimen. 3. Lipids: Target LDL cholesterol in patients with diabetes is less than 100, less than 70 if patient has overt CVD. Several studies have shown cardiovascular benefits of statin therapy in all patients with diabetes over age 40 with at least 1 CVD risk factor. Total Cholesterol, Nonfasting Date Value Ref Range Status 04/21/2024 212 (H) <200 mg/dL Final Comment: <200 mg/dL, Desirable 200-239 mg/dL, Borderline high >239 mg/dL, High HDL Cholesterol, Nonfasting Date Value Ref Range Status 04/21/2024 82 >39 mg/dL Final Comment: 40-59 mg/dL, Acceptable >59 mg/dL, High: Negative risk factor for coronary heart disease <40 mg/dL, Low: Positive risk factor for coronary heart disease LDL Cholesterol, Nonfasting Date Value Ref Range Status 04/21/2024 113 (H) <100 mg/dL Final Comment: <100 mg/dL, Optimal 100-129 mg/dL, Near optimal/above optimal 130-159 mg/dL, Borderline high 160-189 mg/dL, High >189 mg/dL, Very high Secondary prevention optimal LDL Cholesterol levels are recommended to be < 70 mg/dL Triglycerides, Nonfasting Date Value Ref Range Status 04/21/2024 84 <150 mg/dL Final Comment: <150 mg/dL, Normal 150-199 mg/dL, Borderline high 200-499 mg/dL, High >499 mg/dL, Very high -- This patient is currently at target not on statin therapy. 4. Nephropathy screening: Annual measurement of urine albumin excretion is recommended in patients with diabetes. Protein, Urine (no units) Date Value 04/24/2024 1+ (A) Creatinine, Ur Random (UCRR) (mg/dL) Date Value 04/23/2024 64.2 -- This patient does not have microalbuminuria and is not on MICHELLE-I or ARB therapy. 5. Ophthalmology: Annual dilated eye exams are recommended for patients with type 1 and type 2 diabetes. -- This patient is up to date with their annual eye exam and has no history of retinopathy. -- Last seen Laly Buchanan APRN.CNP July 13, 2024 All documentation from previous visit of 05/20/2024 was copied and pasted, documentation has been reviewed and edited as necessary for today's visit. Medical Decision Making: Problems: Moderate: 1+ chronic illnesses with change Data: Unique test result(s) reviewed: 3+ Independent interpretation of test from other physician/QHCP Medical Decision Making Level: 4 - Moderate documented in this encounter [facility] 07-09-2024 History of Present illness Narrative Sonya Meyer is a 38 y.o. female presents with chief complaint of Hypertension (Patient presents today for high bp. Patient started a new chemo medication and some of the chemo medications cause hypertension. ) HPI: HPI History of Present Illness The patient is a 38-year-old female who presents for evaluation of multiple medical concerns. Currently undergoing chemo for t cell lymphoma She reports feeling generally well but has been advised to undergo a heart check-up. Her blood pressure readings are consistently above 140 systolic during her chemotherapy sessions. She is scheduled for another round of chemotherapy next week. The treatment typically leaves her feeling unwell for 3 to 4 days before she starts to recover. Despite this, she continues to experience side effects. Her cancer is not aggressive and has responded well to treatment, as evidenced by a reduction in size on a recent full body CT scan. This improvement led to her being taken off oxygen. She is currently not working and has a feeding tube due to a throat perforation. The plan is to shrink the tumor further before considering surgery. She is unable to swallow her saliva or anything else due to choking risk. She has been using the feeding tube for nearly 4 months. She also experiences dry mouth, requiring frequent water rinses. She experiences difficulty sleeping when not on medication and also struggles with sleep due to steroid use. She occasionally suffers from headaches, the cause of which is unknown. She has been monitoring her glucose levels, which have been fluctuating. At times, they rise to around 150, prompting her to administer 7 units of insulin. However, this dosage sometimes causes her glucose levels to spike to over 200, leading to severe headaches. She has communicated this issue to her healthcare provider, who suggested that the headaches might be due to another cause. She is considering the use of glucose monitoring patches. Supplemental Information: She had a hysterectomy. SUBJECTIVE: MEDICATIONS: Current Outpatient Medications Medication Instructions famotidine (PEPCID) 40 mg, Oral, Nightly omeprazole (PRILOSEC) 40 mg, Oral, Daily before breakfast, Do not crush or chew. ALLERGIES: No Known Allergies SURGICAL HISTORY: Past Surgical History: Procedure Laterality Date HYSTERECTOMY FAMILY HISTORY: Family History Problem Relation Name Age of Onset Hypertension Mother Lana Naqvi Vision loss Mother Lana Naqvi Diabetes Father Richard Blue Hypertension Father Richard Gerarda Vision loss Father Richard Blue Diabetes Maternal Grandfather Donell Blue SOCIAL HISTORY: Social History Tobacco Use Smoking status: Never Smokeless tobacco: Never Substance Use Topics Alcohol use: Not Currently Alcohol/week: 2.0 standard drinks of alcohol Types: 2 Standard drinks or equivalent per week Comment: Every other month Drug use: Never Depression: Not at risk (05/18/2024) Received from [facility] PHQ-2 PHQ-2 score: 1 REVIEW OF SYMPTOMS: Review of Systems OBJECTIVE: Visit Vitals Smoking Status Never Visit Vitals BP 146/86 (BP Location: Right leg, Patient Position: Sitting, BP Cuff Size: Large adult) Pulse 101 Resp 20 Ht 5' 0.75 Wt 158 lb SpO2 96% BMI 30.10 kg/m Smoking Status Never BSA 1.75 m Physical Exam Constitutional: Appearance: Normal appearance. She is normal weight. HENT: Head: Normocephalic and atraumatic. Nose: Nose normal. Mouth/Throat: Mouth: Mucous membranes are moist. Eyes: Pupils: Pupils are equal, round, and reactive to light. Cardiovascular: Rate and Rhythm: Normal rate and regular rhythm. Heart sounds: No murmur heard. Pulmonary: Effort: Pulmonary effort is normal. Breath sounds: Normal breath sounds. No wheezing or rhonchi. Musculoskeletal: General: No swelling. Cervical back: Normal range of motion and neck supple. Right lower leg: No edema. Left lower leg: No edema. Skin: General: Skin is warm and dry. Findings: No rash. Neurological: Mental Status: She is alert and oriented to person, place, and time. Sensory: No sensory deficit. Gait: Gait normal. Psychiatric: Mood and Affect: Mood normal. Thought Content: Thought content normal. Judgment: Judgment normal. ASSESSMENT AND PLAN: Assessment/Plan Problem List Items Addressed This Visit None Visit Diagnoses Primary hypertension (CMS/HCC) - Primary Relevant Medications propranolol (Inderal) 20 MG/5ML solution Assessment & Plan 1. Hypertension. Elevated blood pressure readings were noted during chemotherapy sessions, with systolic values over 140 mmHg. A low-dose antihypertensive medication in liquid form will be initiated, to be taken three times daily. This may also help alleviate her headache symptoms. If the medication lowers her blood pressure too much, it could cause lightheadedness or dizziness. A prescription has been sent to her pharmacy, which may need to order it in. She should check with the pharmacy tomorrow to see when it will be available. 2. Headaches. Headaches may be related to elevated blood pressure. The prescribed antihypertensive medication may help reduce the frequency and severity of her headaches. 3. Cancer. The cancer is responding to chemotherapy, with a noted reduction in tumor size. She will continue with her chemotherapy regimen. She is currently not working and is taking care of herself as advised. 4. Feeding Tube. She has a feeding tube due to a hole in her throat. She is unable to swallow pills and will use liquid medications or pills dissolved in water to be administered through the tube. 5. Diabetes Mellitus. The use of a glucose monitoring patch was discussed, which could potentially reduce the frequency of finger pricks and provide predictive insights into her glucose trends. This will help manage her glucose levels more effectively. Follow-up Return in 1 month for follow up. documented in this encounter [facility] 07-05-2024 Telephone encounter Note Returned call spoke with infusion nurseGio unavailable. Infusion nurse requested dosing information chemo. Advised will reach out to pharmacy to obtain dosing information. New orders with dosing information faxed to Dr. Erickson's office as requested. [facility] 07-05-2024 Miscellaneous Notes Returned call spoke with infusion Gio burton unavailable. Infusion nurse requested dosing information chemo. Advised will reach out to pharmacy to obtain dosing information. New orders with dosing information faxed to Dr. Erickson's office as requested. Gio From [facility] is calling Marcelina Rangel MD, PhD today regarding 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 - Other (Plan Of Care) Patient has been identified by name and birthdate. Gio From [facility] is requesting a call back from the care team to discuss the patients plan of care. Gio can be reached at [phone] EXT [phone] fax number [phone]. Melissa Neal July 05, 2024 documented in this encounter [facility] 07-05-2024 Telephone encounter Note Gio From [facility] is calling Marcelina Rangel MD, PhD today regarding 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 - Other (Plan Of Care) Patient has been identified by name and birthdate. Gio From [facility] is requesting a call back from the care team to discuss the patients plan of care. Gio can be reached at [phone] EXT [phone] fax number [phone]. Melissa Neal July 05, 2024 [facility] 07-01-2024 History of Present illness Narrative Images from the original note were not included. DEPARTMENT OF GASTROENTEROLOGY/HEPATOLOGY - NEW PATIENT/CONSULT REASON FOR VISIT Sonya Meyer is referred in consultation by for an opinion regarding abnormal liver test and my final recommendations will be communicated back to the requesting physician by way of the electronic medical record (EMR). HISTORY OF PRESENT ILLNESS Sonya Meyer is a 38 year old female who presents today for an evaluation of Elevated liver tests/enzymes. Patient was seen by Hepatology service as an inpatient and is here for hospital follow up. 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 Hepatology consulted for elevated LFTs. The patient picture is most likely explained by her diagnosis versus vincristine toxicity. It usually takes more than a week in the case of Vanca Alkaloids vincristine to start to trend down. Her LFTs are stable elevated, T bili 1.7 with INR with normal limits. Negative workup so far MAXIMILIANO, AMA, ASMA, hepatitis A IgG, iron studies and ceruloplasmin of 22, negative hepatitis B and C serologies. Patient is continuing her chemotherapy regimen with last treatment cycle a week ago AST MEDICAL HISTORY No past medical history on file. PAST SURGICAL HISTORY No past surgical history on file. SOCIAL HISTORY Social History Tobacco Use Smoking status: Never Smokeless tobacco: Never FAMILY HISTORY Family History Problem Relation Age of Onset other (anemia) Mother Prostate Cancer Father 50 - 59 s/p prostatectomy Diabetes Father type I No Known Problems Maternal Grandmother No Known Problems Maternal Grandfather limited info Cancer Paternal Grandmother 87 unknown Dx No Known Problems Paternal Grandfather Cancer Paternal Uncle 50 - 59 lymph node, unknown pathology Diabetes Brother type I other (anemia) Half-sister Current Outpatient Medications Medication Sig Dispense Refill gabapentin (NEURONTIN) 300 mg capsule Take 1 capsule by mouth in the morning and 2 capsules at night 90 capsule 3 pantoprazole oral liquid 2 mg/mL (CPD) Take 20ml by mouth once daily for 30 days 600 mL 3 enoxaparin (LOVENOX) 80 mg/0.8 mL Expel 0.1 mL then inject remaining 0.7 mL subcutaneously every 12 hours. 144 mL 0 cetirizine (ZYRTEC) 10 mg tablet Take 1 tablet by mouth once daily. 30 tablet 0 acyclovir (ZOVIRAX) 400 mg tablet Take 1 tablet by mouth two times a day. 60 tablet 0 levoFLOXacin (LEVAQUIN) 500 mg tablet Take 1 tablet by mouth daily at 6 am. 30 tablet 0 blood sugar diagnostic (ONETOUCH VERIO TEST STRIPS) test strip Check blood sugar every 8 hours while Tube feeding is running (0600, 1400, 2200) Patient instructed to record readings in the log book provided and take to all follow-up appointments, along with meter. 100 Strip 0 lancets (YebhiTOUCH DELICA PLUS LANCET) 33 gauge Check blood sugar every 8 hours while Tube feeding is running (0600, 1400, 2200) Patient instructed to record readings in the log book provided and take to all follow-up appointments, along with meter. 100 Each 0 Insulin [place], Disposable, (BD ULTRA-FINE ALYSSA PEN NEEDLE) 32 gauge x 5/32 Use three times a day. 200 Each 0 glucagon (GVOKE HYPOPEN 1-PACK) 1 mg/0.2 mL auto-injector Inject 1 mg subcutaneously as needed. 0.4 mL 0 insulin regular human (NOVOLIN R FLEXPEN) 100 unit/mL (3 mL) pen Inject 7 units at 6 AM, 2 PM, and 10 PM (while tube feed infusing) + sliding scale If Blood Glucose (mg/dL) is <110 Give 0 units 111-150 Give 0 units 151-200 Give 1 unit 201-250 Give 2 units 251-300 Give 3 units 301-350 Give 4 units 351-400 Give 5 units >400 Give 5 units and Call physician. Max 36 units per day. 15 mL 1 insulin regular human (NOVOLIN R REGULAR U100 INSULIN) 100 unit/mL injection Inject subcutaneously 7 units three times daily at 6AM, 2PM and 10 PM with tube feeds plus sliding scale: If Blood Glucose (mg/dL) is <110 Give 0 units 111-150 Give 0 units 151-200 Give 1 unit 201-250 Give 2 units 251-300 Give 3 units 301-350 Give 4 units 351-400 Give 5 units >400 Give 5 units and Call physician. TDD up to 36 units 10 mL 0 insulin syr/ndl U100 half nimesh (BD INSULIN SYRINGE, HALF UNIT,) 0.3 mL 31 gauge x 5/16 syrg Use with insulin injections three times daily 100 Each 0 nutritional supplements (OSMOLITE 1.2 YURI) 0.06 gram-1.2 kcal/mL liqd 55 mL/hr by FEEDING TUBE route continuous. Tube Feeding Formula Type: Osmolite 1.2 or equivalent Rate: 55 ml/hr x 24 hours (1320 ml total volume, 1584 kcals, 73 gm prot) Water Flush: Flush with 70 mL every 4 hours 32073 mL 0 predniSONE (DELTASONE) 50 mg Take 2 tablets by mouth daily with breakfast. Take for 5 days starting on the first day of each cycle (days 1-5). (Patient not taking: Reported on 07/01/2024) 10 tablet 5 potassium chloride ER (KLOR-CON) 20 mEq tablet Take 2 tablets by mouth once daily. (Patient not taking: Reported on 06/18/2024) 14 tablet 0 Current Facility-Administered Medications Medication Dose Route Frequency Provider Last Rate Last Admin albuterol 2.5 mg /3 mL (0.083 %) 2.5 mg (PROVENTIL) 2.5 mg INHALATION PRN Marcelina Rangel MD, PhD albuterol HFA 90 mcg/actuation 2 Puff (PROVENTIL HFA, VENTOLIN HFA) 2 Puff INHALATION PRN Marcelina Rangel MD, PhD pentamidine 300 mg nebulizer solution (NEBUPENT) 300 mg INHALATION q 4 WEEKS Marcelina Rangel MD, PhD 300 mg at 06/18/24 1106 ALLERGIES No Known Allergies PHYSICAL EXAMINATION BP 155/94 Pulse 86 Temp (Src) 97 (Temporal) SpO2 98% General Appearance: Patient in wheel chair and with NG feeding tube., well-hydrated, well nourished. Eyes: PERRLA, conjunctiva and sclera normal Oropharynx: Lips, tongue, and oral mucosa normal. Lungs:breath sounds clear to auscultation bilaterally, no crackles, rhonchi, or wheezes Heart: regular rate and rhythm, no murmurs or gallops. Abdomen: not distended, normal bowel sounds, soft and depressible, no guarding or rebound, no palpable mass, no organomegaly Extremities: no cyanosis or edema LABS Latest Ref Rng & Units 06/25/2024 06/04/2024 05/28/2024 CBC WBC 3.70 - 11.00 k/uL 6.43 13.19 32.82 RBC 3.90 - 5.20 m/uL 4.46 3.84 3.85 Hemoglobin 11.5 - 15.5 g/dL 11.3 9.9 10.4 Hematocrit 36.0 - 46.0 % 37.9 33.6 33.5 MCV 80.0 - 100.0 fL 85.0 87.5 87.0 MCH 26.0 - 34.0 pg 25.3 25.8 27.0 MCHC 30.5 - 36.0 g/dL 29.8 29.5 31.0 RDW-CV 11.5 - 15.0 % 22.5 28.1 30.2 Platelet Count 150 - 400 k/uL 391 406 256 MPV 9.0 - 12.7 fL 9.5 9.6 9.4 Baso% % 0.3 0.6 0.0 Abs Neut (ANC) 1.45 - 7.50 k/uL 4.96 10.63 22.97 Abs Lymph 1.00 - 4.00 k/uL 0.79 1.63 4.59 Abs [place] <0.87 k/uL 0.57 0.66 4.27 Abs Eosin <0.46 k/uL 0.05 0.05 0.00 Abs Baso <0.11 k/uL <0.03 0.08 0.00 NRBC /100 WBC 0.0 1.0 0.0 [place]% % 1.0 Myelo% % 2.0 Anisocytosis Present Left Shift Present Ovalocytes Few Polychromasia Slight Platelet Estimate Adequate Latest Ref Rng & Units 06/25/2024 06/04/2024 05/28/2024 CMP Sodium 136 - 144 mmol/L 140 141 141 Potassium 3.7 - 5.1 mmol/L 4.3 4.3 4.2 Chloride 98 - 107 mmol/L 103 104 104 CO2 22 - 30 mmol/L 27 26 27 Glucose 74 - 99 mg/dL 128 115 139 BUN 7 - 21 mg/dL 15 16 15 Creatinine 0.58 - 0.96 mg/dL 0.45 0.43 0.45 EGFR >=60 mL/min/1.73m 126 127 126 Protein, Total 6.3 - 8.0 g/dL 7.2 8.0 7.0 Albumin 3.9 - 4.9 g/dL 4.0 3.7 3.8 Calcium 8.5 - 10.2 mg/dL 9.5 9.7 9.2 Bilirubin, Total 0.2 - 1.3 mg/dL 0.6 0.7 1.3 AST 13 - 35 U/L 41 59 90 ALT 7 - 38 U/L 60 97 201 Alkaline Phosphatase 34 - 123 U/L 281 322 392 ASSESSMENT/PLAN Ms. Meyer is a 38 year old year old female who presents for hospital follow up. Patient with elevated liver enzymes that was believed to be induced by chemotherapy (Vincristine) in the setting of underlying steatosis of the liver. Overall patient is doing well and had continuous improvement of liver enzymes . Plan is to follow up in six months. Guille Dixon MD July 01, 2024 9:46 AM documented in this encounter [facility] 06-25-2024 History of Present illness Narrative Images from the original note were not included. [facility] Department of Pharmacy Pharmacy Office Visit Patient name: Sonya Meyer Primary Plant Protection Superintendent: Dr. Rangel Diagnosis: Acute Lymphoblastic Leukemia (ALL) Date of service: 06/25/24 Does this patient have an active consult agreement?: No Sonya Meyer is a 38 year old patient diagnosed with Acute Lymphoblastic Leukemia (ALL). Pharmacy has been asked to see this patient to assist with supportive care and side effect management Was this patient admitted to the hospital since the last office visit?: No Medication Assessment and Plan: Current Therapy: CVP Adherence: Patient reports 0 missed dose(s) in the last 30 days Side effects: Patient reports none Dose adjustments: are not indicated based on current organ function Supportive Care: Infectious Disease: acyclovir 400 mg PO BID, levofloxacin 500 mg PO daily during periods of neutropenia, and pentamadine monthly CINV: None GI: pantoprazole Anticoagulation/Antiplatelet: enoxaparin Neuropathy: gabapentin Pain: None Drug Interactions: There are no pertinent drug interactions identified Allergies: Patient confirmed allergies documented in Epic are correct Additional Information: Patient states doing well. She will crab picker her prednisone and gabapentin today from the [facility] pharmacy. Calendar was provided Chemotherapy Dosing and Information Prednisone 100 mg once daily on day 1-5 (2 tablets) - take with food to prevent stomach upset, take in morning to avoid insomnia tool crib supervisor prescription from [facility] pharmacy on first floor after treatment appointment Cyclophosphamide IV once Vincristine IV once Supportive Care Medications Acyclovir 400 mg twice daily - prevents viral infections Pentamidine (inhaled treatment) - prevents PJP pneumonia Levofloxacin 500 mg once daily- prevents bacterial infections (may be started when white blood cells are low) Was medication reconciliation performed?: No Was oncology pharmacy medication education provided?: No Current Medication List: Current Outpatient Medications Medication Sig gabapentin (NEURONTIN) 300 mg capsule Take 1 capsule by mouth in the morning and 2 capsules at night pantoprazole oral liquid 2 mg/mL (CPD) Take 20ml by mouth once daily for 30 days predniSONE (DELTASONE) 50 mg Take 2 tablets by mouth daily with breakfast. Take for 5 days starting on the first day of each cycle (days 1-5). enoxaparin (LOVENOX) 80 mg/0.8 mL Expel 0.1 mL then inject remaining 0.7 mL subcutaneously every 12 hours. cetirizine (ZYRTEC) 10 mg tablet Take 1 tablet by mouth once daily. acyclovir (ZOVIRAX) 400 mg tablet Take 1 tablet by mouth two times a day. levoFLOXacin (LEVAQUIN) 500 mg tablet Take 1 tablet by mouth daily at 6 am. potassium chloride ER (KLOR-CON) 20 mEq tablet Take 2 tablets by mouth once daily. (Patient not taking: Reported on 06/18/2024) blood sugar diagnostic (ONETOUCH VERIO TEST STRIPS) test strip Check blood sugar every 8 hours while Tube feeding is running (0600, 1400, 2200) Patient instructed to record readings in the log book provided and take to all follow-up appointments, along with meter. lancets (ONETOUCH DELICA PLUS LANCET) 33 gauge Check blood sugar every 8 hours while Tube feeding is running (0600, 1400, 2200) Patient instructed to record readings in the log book provided and take to all follow-up appointments, along with meter. Insulin [place], Disposable, (BD ULTRA-FINE ALYSSA PEN NEEDLE) 32 gauge x 5/32 Use three times a day. glucagon (GVOKE HYPOPEN 1-PACK) 1 mg/0.2 mL auto-injector Inject 1 mg subcutaneously as needed. insulin regular human (NOVOLIN R FLEXPEN) 100 unit/mL (3 mL) pen Inject 7 units at 6 AM, 2 PM, and 10 PM (while tube feed infusing) + sliding scale If Blood Glucose (mg/dL) is <110 Give 0 units 111-150 Give 0 units 151-200 Give 1 unit 201-250 Give 2 units 251-300 Give 3 units 301-350 Give 4 units 351-400 Give 5 units >400 Give 5 units and Call physician. Max 36 units per day. insulin regular human (NOVOLIN R REGULAR U100 INSULIN) 100 unit/mL injection Inject subcutaneously 7 units three times daily at 6AM, 2PM and 10 PM with tube feeds plus sliding scale: If Blood Glucose (mg/dL) is <110 Give 0 units 111-150 Give 0 units 151-200 Give 1 unit 201-250 Give 2 units 251-300 Give 3 units 301-350 Give 4 units 351-400 Give 5 units >400 Give 5 units and Call physician. TDD up to 36 units insulin syr/ndl U100 half nimesh (BD INSULIN SYRINGE, HALF UNIT,) 0.3 mL 31 gauge x 5/16 syrg Use with insulin injections three times daily nutritional supplements (OSMOLITE 1.2 YURI) 0.06 gram-1.2 kcal/mL liqd 55 mL/hr by FEEDING TUBE route continuous. Tube Feeding Formula Type: Osmolite 1.2 or equivalent Rate: 55 ml/hr x 24 hours (1320 ml total volume, 1584 kcals, 73 gm prot) Water Flush: Flush with 70 mL every 4 hours Current Facility-Administered Medications Medication Dose Route Frequency albuterol 2.5 mg /3 mL (0.083 %) 2.5 mg (PROVENTIL) 2.5 mg INHALATION PRN albuterol HFA 90 mcg/actuation 2 Puff (PROVENTIL HFA, VENTOLIN HFA) 2 Puff INHALATION PRN pentamidine 300 mg nebulizer solution (NEBUPENT) 300 mg INHALATION q 4 WEEKS Facility-Administered Medications Ordered in Other Visits Medication Dose Route Frequency vinCRIStine 2 mg in NaCl 0.9% 60 mL (ONCOVIN) 2 mg INTRAVENOUS ONCE cycloPHOSphamide 1,810 mg in NaCl 0.9% 365.5 mL (CYTOXAN) 1,000 mg/m2 (Treatment Plan Recorded) INTRAVENOUS ONCE NaCl 0.9% iv infusion 500-999 mL/hr INTRAVENOUS PRN diphenhydrAMINE 50 mg injection (BENADRYL) 50 mg INTRAVENOUS PRN hydrocortisone sodium succinate (PF) 100 mg injection (Solu-CORTEF) 100 mg INTRAVENOUS PRN EPINEPHrine 1 mg/mL (1 mL) 0.3 mg injection 0.3 mg INTRAMUSCULAR PRN Laboratory Data CBC with diff: WBC 6.43 06/25/2024 RBC 4.46 06/25/2024 Hemoglobin 11.3 06/25/2024 Hematocrit 37.9 06/25/2024 MCV 85.0 06/25/2024 MCH 25.3 06/25/2024 MCHC 29.8 06/25/2024 RDW-CV 22.5 06/25/2024 Platelet Count 391 06/25/2024 MPV 9.5 06/25/2024 Neutrophils % 77.1 06/25/2024 Lymphocytes % 12.3 06/25/2024 Monocytes % 8.9 06/25/2024 Eosinophils % 0.8 06/25/2024 Basophils % 0.3 06/25/2024 Abs Neut (Segs + Bands) 4.96 06/25/2024 Abs Mingo 0.57 06/25/2024 Abs Eosin 0.05 06/25/2024 Abs Baso <0.03 06/25/2024 CMP: Glucose 128 06/25/2024 BUN 15 06/25/2024 Creatinine 0.45 06/25/2024 Sodium 140 06/25/2024 Potassium 4.3 06/25/2024 Chloride 103 06/25/2024 CO2 27 06/25/2024 Protein, Total 7.2 06/25/2024 Albumin 4.0 06/25/2024 Calcium, Total 9.5 06/25/2024 Alkaline Phosphatase 281 06/25/2024 Bilirubin, Total 0.6 06/25/2024 AST 41 06/25/2024 ALT 60 06/25/2024 Medical History: Medication History ALLERGIES No Known Allergies Thank you for allowing us to participate in the care of this patient. Codi Roberson RPh Pager: [phone] June 25, 2024 3:04 PM documented in this encounter [facility] 06-25-2024 History of Present illness Narrative . 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 No BM or ADJUSTER LEADER involvement at diagnosis Other oncology history - none Current treatment - CVP (C1D1: 04/23/2024, C2D1: 05/14/2024, C3D1= 06/04/2024, C4D1= 06/25/2024) IT Methotrexate (05/03/2024 and 05/10/2024) Bortezomib (Dose1 04/30/2024), total three doses so far, last dose on 05/19/2024 Prior treatment - none Transfusion status - Jevoha's witness. NO blood product administration. Draw all labs in pediatric tubes if possible. Current Status - ongoing treatment, not in remission. Interval visit Patient presents to treatment today with her . Overall she is doing well. She still has numbness/tingling in 1st 3 fingers, she ran out of gabapentin. She also has been experiencing increased acid reflux d/t being out of protonix. Both of these were sent to the pharmacy. She denies fevers/ chills/ nausea/ vomiting/ diarrhea. Last regular BM was yesterday. Clinical course, treatment dates, hospitalizations and response assessments - (a) Presenting symptoms - Transferred to [facility] on 04/17/2024 after presenting to outside hospital with ~2 weeks of dyspnea and cough, followed by facial swelling. 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 A bone marrow biopsy was performed on 04/19/2024 which showed no evidence of marrow involvement. NGS testing was performed and notable for a TP53 mutation. Given patient's synagogue preferences ([employer]), she was started on cycle 1 CVP therapy on 04/23/2024. Her treatment course was complicated by acute hypoxic respiratory failure secondary to multifactorial issues (right lower lobe pulmonary embolism, left lower lobe pneumonia, superior vena cava syndrome), however was able to be weaned back down to room air. ID was consulted, and patient completed course of Zosyn from 04/19 to 04/26. Vascular medicine was consulted, and patient was started on therapeutic doses of Lovenox. While admitted, Ms. Meyer had repeat episodes of dysphagia, so a Corpak was placed and speech pathology was consulted. Ms. 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 Thoracic surgery was consulted and recommended no acute surgical intervention given large mediastinal mass with plan for outpatient follow-up post-discharge. Her course was also complicated by transaminitis for which she underwent a liver MRI which revealed diffuse hepatic steatosis and a contracted gallbladder with stones but without any suspicious liver lesions nor lymphoproliferative involvement of the abdomen. Hepatology was consulted and it was thought to be due to Injury from vincristine (vinca alkaloid) vs. Bortezomib vs. possible leukemia infiltrative process. Ms. Meyer was also noted to have steroid-induced hyperglycemia for which endo was consulted and recommended insulin at discharge. She was seen by a certified breastfeeding educator and educated on use with plans to follow up with Endocrinology outpatient post discharge. Prior to discharge, Ms. Meyer was educated on line care, TF care, and administration of Lovenox/Insulin. She was started on C2 of CVP on 05/14/2024 without complication and subsequently discharged on 05/17/2024. (b) Baseline diagnostic evaluations - Presented to [facility] ED on 04/07 with complaints of SOB and cough x2 weeks and new facial swelling. 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 CT Chest 04/18: Large anterior mediastinal mass reportedly related to known T-cell LBL. Attempted to get LN Biopsy slides from [facility]: called and spoke to path lab, and fax request sent. CT-guided core needle mediastinal biopsy (04/23/24) at [facility] Demonstrated fragmented cores of lymphoid tissue showing areas with significant crush artifact limiting morphologic evaluation. A relatively diffuse proliferation of intermediate to large lymphoid cells is seen with mildly irregular nuclear contours, finely dispersed chromatin, inconspicuous nucleoli and scant cytoplasm. Apoptotic bodies and mitoses are present. Immunohistochemical/in situ hybridization stains were performed on sections from block A1 for further evaluation of the atypical lymphoid proliferation. CD3 shows numerous positive cells throughout that coexpress CD34, NOTCH1, LMO2, CD5 (minor subset) and are negative for CD20, TdT, CD30, ALK1, CD2 and chromogenic in situ hybridization for EBV-encoded small RNA (JUANITO). Ki-67 proliferation fraction is difficult to interpret due to significant crush artifact, but appears high with many positive cells. Flow cytometric immunophenotypic studies demonstrate an abnormal T-cell population that is positive for CD3, CD4, CD7 with very dim to negative CD5 expression and monotypic TRBC1 expression. The abnormal T cells are negative for CD2 and CD8. NGS: TP53 mutation p.R248Q, [id number], c.743G>A, VAF: 93.8% RNA sequencing: No fusions detected. FLT3 Internal Tandem Duplication (ITD) mutation: Not Detected -S/P BMBx (04/19/24) :No e/o leukemia -S/P breast biopsy on 04/20 - no blastoid features; benign fibroadenoma -LP with IT chemo (05/03/24): Negative -LP with IT chemo (05/10/24) - Negative -Repeat CT Chest (05/10/2024) - Slightly decreased large anterior and superior mediastinal mass -PET/CT (05/12/2024) - anterior mediastinal mass w/ heterogenous uptake and areas suggestive of necrosis Review of systems including interval history: Constitutional: No fever, chills, night sweats, anorexia or malaise. Eyes: No change in vision, blurriness, diplopia, redness, or irritation. ENT: No mouth sores or bleeding gums; no hoarseness of voice. . No epistaxis or other nasal problems. No changes in hearing, vertigo, or tinnitus. Respiratory: No coughing, wheezing, dyspnea at rest, exertional dyspnea, or hemoptysis. Cardiovascular: No anginal symptoms, palpitations, orthopnea, PND, syncopal events or presyncopal events. Gastrointestinal: Denies nausea, No vomiting, heartburn or acid reflux, diarrhea, constipation or abdominal cramping. Bowel habit is unchanged; and no melena or hematochezia. Genitourinary: No urgency, frequency, dysuria, or hematuria. No hesitancy or decreased urinary stream, incomplete emptying or ncontinence. Musculoskeletal: Per HPI Skin: Abdominal skin has anticipatory rash from lovenox injections. Neurological: No syncope, near-syncope, or seizures or alteration in sensorium or motor strength. 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 Endocrine: Negative for temperature intolerance, unusual sweating, or symptoms of glucose intolerance. Hematologic/Lymphatic: Negative for prolonged bleeding, easy bruising, and swollen nodes. No lower extremity edema. Allergic/Immunologic: No itching, or jaundice. Past medical and surgical history: - Jehova's witness - Uterine fibroids s/p hysterectomy Family and social history: Paternal grandmother Stomach cancer Father's brother: Lump in neck, unclear cancer Father: Prostate cancer Allergies: None Physical Examination: Vitals: Please refer to infusion vitals. General: of very pleasant disposition, sitting comfortably in wheel chair, with NG tube and Tube-feeds running, in no acute distress, accompanied by her ECOG performance is 1 HEENT: EOMI; PERRL, no thrush or petechiae Neck: Supple, no thyromegaly, CV: Tachycardia, S1S2 normal, no M/R/G Chest: Clear to auscultation bilaterally without any wheezes, rales or rhonchi. Abd: soft, obese, NT/ND, + BS, no hepatosplenomegaly Ext: No edema Neuro: No focal deficits LN: No supraclavicular, infraclavicular, axillary, epitrochlear or inguinal lymphadenopathy. Current Medications: Reviewed from [facility] and confirmed with the patient. Labs: Reviewed from [facility] and integrated in assessment and plan. 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 Plan to start C4D1 on 06/25/2024 - IT Methotrexate (on 05/03, 05/10, 06/04, 06/08, 06/25) - S/P 3 doses of Bortezomib (Last dose-05/19/24) - Completed steroids taper on 05/27/2024 - Received filgrastim-aafi on 05/06/2024 and 05/17/2024. - S/p Procrit 40,000 units x on 05/06 - Rad Onc was consulted while hospitalization in 04/2024-- no role for palliative RT at this time 2) Steroid induced hyperglycemia - Resolved, off of steroid now. Blood glucose stable at home. Follows with endo 3) Thrombosis -CTA Neck 04/07: There is thrombus within the left jugular vein extending up to the level of the angle of the mandible. Presumably this is propagating from the chest. Was transferred to [facility] on heparin gtt -CT Chest 04/18: RLL PE -BUE/BLE DVT US 04/20 - Positive for R arm DVTs - RIJ, innominate, subclavian, axillary, and brachial veins --OK to keep PICC line per discussion with vascular medicine on 04/20 -Per vascular patient will require AC at least 3-6 months duration of treatment, No current candidate for DOAC. Continue Lovenox 1 mg/kg BID. May be transitioned outpatient potentially. 4) Transminitis: -Liver MRI (05/06/24): Diffuse hepatic steatosis. No suspicious liver lesion Liver enzymes were uptrending since 04/17/2024. AST and ALT although up, but decreasing trend since 05/13/2024. Evaluated by Hepatology while hospitalized--> Injury from vincristine (vinca alkaloid) Vs Bortezomib Vs Possible leukemia infiltrative process. Consider liver bx if LFTs do no improve. Continue CMP weekly. 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 - Evaluated by thoracic during hospitalization, recommended continue TF. No acute surgical intervention recommended as of now -Will hold off on PEG tube placement at this time, maintain corpak Patient discussed with thoracic outpatient, they will plan surgery for TEF once, she completes chemotherapy 6) Right Breast nodule: Patient states she has had multiple mammograms and breast US in the past for this nodule and it is not new. Underwent breast biopsy on 04/20: no blastoid features; benign fibroadenoma. Routine follow up with local oncologist/PCP Plan: - Prednisone was sent to pharmacy. Reviewed new calendar with patient. - Refills for gabapentin & Protonix sent to pharmcy - RTC: 07/[address] Juan Carlos Jama PA-C Hematology & Oncology Pager: [phone] documented in this encounter [facility] 06-24-2024 Telephone encounter Note Spoke with Roseline at [facility] and provided requested diagnosis codes. [facility] 06-24-2024 Miscellaneous Notes Spoke with Roseline at [facility] and provided requested diagnosis codes. [employer] is calling Marcelina Rangel MD, PhD today regarding 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 - Other (Diagnosis Code) Patient has been identified by name and birthdate. [employer] is requesting a call back for the diagnosis code for the Enoxaparin. Call back number [phone] fax number [phone]. Melissa Neal June 24, 2024 documented in this encounter [facility] 06-24-2024 Telephone encounter Note Spoke with Roseline at [facility] and provided requested diagnosis codes. [facility] 06-24-2024 Miscellaneous Notes Spoke with Roseline at [facility] and provided requested diagnosis codes. Sonya Meyer('s) is calling Marcelina Rangel MD, PhD today regarding 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 - Other (Lovenox Rx) Patient states that [facility] is in need of a diagnosis code for the patient's Lovenox prescription. Patient provided the phone number below. Patient has been identified by name and birthdate. Requesting response back: [phone] Winnie Lagunas June 24, 2024 documented in this encounter [facility] 06-24-2024 Telephone encounter Note [employer] is calling Marcelina Rangel MD, PhD today regarding 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 - Other (Diagnosis Code) Patient has been identified by name and birthdate. [employer] is requesting a call back for the diagnosis code for the Enoxaparin. Call back number [phone] fax number [phone]. Melissa Neal June 24, 2024 [facility] 06-24-2024 Telephone encounter Note Sonya Meyer('s) is calling Marcelina Rangel MD, PhD today regarding 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 - Other (Lovenox Rx) Patient states that [facility] is in need of a diagnosis code for the patient's Lovenox prescription. Patient provided the phone number below. Patient has been identified by name and birthdate. Requesting response back: [phone] Winnie Bebo June 24, 2024 [facility] 06-21-2024 Telephone encounter Note Message forwarded via email to Dr. Rangel for review. [facility] 06-21-2024 Miscellaneous Notes Message forwarded via email to Dr. Rangel for review. Stefan from the [facility] is calling Marcelina Rangel MD, PhD today regarding 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 - Other ([place] Patient) Patient has been identified by name and birthdate. Stefan on behalf on Dr. Delmy Erickson requested if Dr. Rangel can give him a call back, at his best convenience to connect and co-ordinate the care for the mutual patient. Requesting response back: Dr. Erickson's cell: [phone] [facility] can be reached at: [phone] Helga España June 21, 2024 documented in this encounter [facility] 06-21-2024 Telephone encounter Note Stefan from the [facility] is calling Marcelina Rangel MD, PhD today regarding 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 - Other ([place] Patient) Patient has been identified by name and birthdate. Stefan on behalf on Dr. Delmy Erickson requested if Dr. Rangel can give him a call back, at his best convenience to connect and co-ordinate the care for the mutual patient. Requesting response back: Dr. Erickson's cell: [phone] Hospital can be reached at: [phone] Helga España June 21, 2024 [facility] 06-18-2024 Procedure note Patient arrived to receive aerosol Pentamidine breathing treatment. Identity was confirmed with 2 patient identifiers. Lungs cta pretreatment. ra spo2 99, hr 95 Pentamadine was reconstituted with 6 cc sterile water. Patient given aerosol Pentamadine(Nebupent) 300mg via nebulizer w/ exhalation filter at 6l/m. Patient tolerated treatment well with no complaint of cough or dyspnea. Lung sounds are unchanged post treatment. ra spo2 100, hr 94 Clarisse Jin RRT [facility] 06-18-2024 Procedure note Patient arrived to receive aerosol Pentamidine breathing treatment. Identity was confirmed with 2 patient identifiers. Lungs cta pretreatment. ra spo2 99, hr 95 Pentamadine was reconstituted with 6 cc sterile water. Patient given aerosol Pentamadine(Nebupent) 300mg via nebulizer w/ exhalation filter at 6l/m. Patient tolerated treatment well with no complaint of cough or dyspnea. Lung sounds are unchanged post treatment. ra spo2 100, hr 94 Clarisse Jin RRT documented in this encounter [facility] 06-18-2024 History of Present illness Narrative Images from the original note were not included. [facility] Department of Cardiovascular Medicine SECTION OF VASCULAR MEDICINE OUTPATIENT VISIT DATE June 18, 2024 OUTPATIENT VISIT TYPE CONSULTATION Consult regarding: PE Consult requested by: Neel Talbert My final recommendations will be communicated back to the requesting physician by way of the shared medical record or by letter. Primary care physician: Manisha Mcknight MD Historian: Patient History of present illness Ms.Janette Meyer is a 38 year old female, Roman Catholic with past medical history of uterine fibroids s/p hysterectomy, who presented to an outside hospital with a chief complaint of dyspnea, cough as well as facial swelling. 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 Prior hospitalization was complicated with strep mitis bacteremia, therefore patient was started on Zosyn, transition to distraction. Repeat blood cultures after 72 hours were negative. TTE did not show any vegetation. Patient was a started on dexamethasone 8 mg IV twice daily. Patient refused any type of blood products. Patient is currently on heparin drip as well as dexamethasone. Primary team consulted our service for further recommendations regarding anticoagulation in the setting of left IJ vein thrombosis, with ongoing malignancy and SVC syndrome. Following, patient had a prolonged hospitalization complicated by respiratory insufficiency and transaminitis. Eventually was discharged home with a Corpak given difficulty with p.o. intake. Remains on Lovenox. Doing well. Remains on treatment for her underlying malignancy. Allergies: has No Known Allergies. Medications: pantoprazole oral liquid 2 mg/mL (CPD)^Take 20ml by mouth once daily for 30 days^Disp: 600 mL^Rfl: 3 cetirizine (ZYRTEC) 10 mg tablet^Take 1 tablet by mouth once daily.^Disp: 30 tablet^Rfl: 0 acyclovir (ZOVIRAX) 400 mg tablet^Take 1 tablet by mouth two times a day.^Disp: 60 tablet^Rfl: 0 levoFLOXacin (LEVAQUIN) 500 mg tablet^Take 1 tablet by mouth daily at 6 am.^Disp: 30 tablet^Rfl: 0 gabapentin (NEURONTIN) 300 mg capsule^Take 1 capsule by mouth once daily in the morning and 2 capsules at bedtime for 30 days^Disp: 90 capsule^Rfl: 0 blood sugar diagnostic (YebhiTOUCH VERIO TEST STRIPS) test strip^Check blood sugar every 8 hours while Tube feeding is running (0600, 1400, 2200) Patient instructed to record readings in the log book provided and take to all follow-up appointments, along with meter.^Disp: 100 Strip^Rfl: 0 lancets (YebhiTOUCH DELICA PLUS LANCET) 33 gauge^Check blood sugar every 8 hours while Tube feeding is running (0600, 1400, 2200) Patient instructed to record readings in the log book provided and take to all follow-up appointments, along with meter.^Disp: 100 Each^Rfl: 0 Insulin [place], Disposable, (BD ULTRA-FINE ALYSSA PEN NEEDLE) 32 gauge x ^Use three times a day.^Disp: 200 Each^Rfl: 0 insulin regular human (NOVOLIN R REGULAR U100 INSULIN) 100 unit/mL injection^Inject subcutaneously 7 units three times daily at 6AM, 2PM and 10 PM with tube feeds plus sliding scale: If Blood Glucose (mg/dL) is <110 Give 0 units 111-150 Give 0 units 151-200 Give 1 unit 201-250 Give 2 units 251-300 Give 3 units 301-350 Give 4 units 351-400 Give 5 units >400 Give 5 units and Call physician. TDD up to 36 units^Disp: 10 mL^Rfl: 0 nutritional supplements (OSMOLITE 1.2 YURI) 0.06 gram-1.2 kcal/mL liqd^55 mL/hr by FEEDING TUBE route continuous. Tube Feeding Formula Type: Osmolite 1.2 or equivalent Rate: 55 ml/hr x 24 hours (1320 ml total volume, 1584 kcals, 73 gm prot) Water Flush: Flush with 70 mL every 4 hours^Disp: 27366 mL^Rfl: 0 enoxaparin (LOVENOX) 80 mg/0.8 mL^Inject 0.7 mL subcutaneously every 12 hours. Inject entire contents of one(1) syringe^Disp: 144 mL^Rfl: 0 predniSONE (DELTASONE) 50 mg^Take 2 tablets by mouth daily with breakfast. Take for 5 days starting on the first day of each cycle (days 1-5).^Disp: 10 tablet^Rfl: 5 potassium chloride ER (KLOR-CON) 20 mEq tablet^Take 2 tablets by mouth once daily.^Disp: 14 tablet^Rfl: 0 (Patient not taking: Reported on 06/18/2024) glucagon (GVOKE HYPOPEN 1-PACK) 1 mg/0.2 mL auto-injector^Inject 1 mg subcutaneously as needed.^Disp: 0.4 mL^Rfl: 0 insulin regular human (NOVOLIN R FLEXPEN) 100 unit/mL (3 mL) pen^Inject 7 units at 6 AM, 2 PM, and 10 PM (while tube feed infusing) + sliding scale If Blood Glucose (mg/dL) is <110 Give 0 units 111-150 Give 0 units 151-200 Give 1 unit 201-250 Give 2 units 251-300 Give 3 units 301-350 Give 4 units 351-400 Give 5 units >400 Give 5 units and Call physician. Max 36 units per day.^Disp: 15 mL^Rfl: 1 insulin syr/ndl U100 half nimesh (BD INSULIN SYRINGE, HALF UNIT,) 0.3 mL 31 gauge x 5/16 syrg^Use with insulin injections three times daily^Disp: 100 Each^Rfl: 0 Past medical history: has no past medical history on file. Past surgical history: has no past surgical history on file. Family history: family history includes Cancer (age of onset: 50 - 59) in her paternal uncle; Cancer (age of onset: 87) in her paternal grandmother; Diabetes in her brother and father; No Known Problems in her maternal grandfather, maternal grandmother, and paternal grandfather; Prostate Cancer (age of onset: 50 - 59) in her father; anemia in her half-sister and mother. Social history: Physical exam Vitals: BP 159/98 (BP Site: Right Leg, BP Position: Sitting, BP Cuff Size: Thigh) Pulse 102 Ht 149.9 cm (4' 11 ) Wt 70.8 kg (156 lb) BMI 31.51 kg/m Gen: No acute distress HEENT: AT Neck: Supple Resp: EBBS. CTAB. No rhonchi, rales, or wheezing. Cardiac: Rate and rhythm regular Vascular: Carotid 2+ bilaterally without any bruit. Radial 2+ bilaterally. Extr: No ischemia, cyanosis, ulceration or intertrigo. No edema, venous varicosities, or stasis pigmentation changes bilaterally. Stemmer's sign negative bilaterally. Derm: Skin warm and well perfused Neuro: alert, awake, oriented. Studies/imaging No pertinent studies available for review Pertinent Labs Labs: CBC Lab Results Component Value Date HCT 33.6 (L) 06/04/2024 PLT 406 (H) 06/04/2024 Renal Function Lab Results Component Value Date BUN 16 06/04/2024 Liver Function Lab Results Component Value Date ALB 3.7 (L) 06/04/2024 TBILI 0.7 06/04/2024 Lipid Profile Lab Results Component Value Date CHOL 212 (H) 04/21/2024 HDL 82 04/21/2024 LDL 113 (H) 04/21/2024 HbA1c No components found for: GHBA1C , [id number] Coagulation Lab Results Component Value Date INR 1.1 05/17/2024 Cardiac Biomarkers No results found for: BNP , NTBNP No results found for: TROPI , TROPT Impression 38 yo F Jehova's witness with no remarkable history who presented with facial swelling and reflux symptoms. Workup revealed large mediastinal mass causing SVC syndrome. Incidentally found to have left IJ DVT on CT imaging. Formally diagnosed with T-cell AL L/lymphoma and later more extensive DVT and PE. Patient's imaging consistent with SVC obstruction as well as left subclavian vein obstruction. As such I do agree with recommendation of anticoagulation not only for treatment of the cancer associated DVT but more importantly for maintaining patency of patient's remaining thoracic venous system. Currently, patient remains on anticoagulation with Lovenox given inability to tolerate p.o. intake. As such, we will continue. Tolerating well. No bleeding. May have surgery in the future. Once patient is able to tolerate p.o. intake, we will transition patient to a DOAC. Otherwise she is doing well. Recommendations _Continue Lovenox 70mg BID as long as active malignancy and transition to DOAC when ready and tolerating PO intake _ For future travel, recommend use knee high compression stockings + short walks every 1 - 1.5 hours _ For future hospital admissions, recommend use of IPCDs, Harris hose, low dose injectable blood thinners _ Reviewed signs/symptosm of recurrent VTE and encouraged pt to seek medical attention if these occur _ Use compression stockings for prolonged immobility _ Will follow with PCP for malignancy screening Follow up in 6 months Olga Ureña MD, VI Staff Physician Section of Vascular Medicine Tatiana Viera Department of Cardiovascular Medicine Heart and [facility] I have reviewed the imaging studies with and showed the findings. verbalized understanding and agreed with the management plan. Thank you for the opportunity to participate in the care of . Olga Ureña MD, [facility] Staff Physician Section of Vascular Medicine Tatiana Viera Department of Cardiovascular Medicine Heart and [facility] documented in this encounter [facility] 06-17-2024 Telephone encounter Note Refill request for Lovenox forwarded to Dr. Rangel awaiting signature. [facility] 06-17-2024 Miscellaneous Notes Refill request for Lovenox forwarded to Dr. Rangel awaiting signature. Sonya Meyer is calling Marcelina Rangel MD, PhD today regarding Refill Request (Lovenox). Patient calling for update on refill for the following medication: noxaparin (LOVENOX) 80 mg/0.8 mL Sig: Expel 0.1 mL then inject remaining 0.7 mL subcutaneously every 12 hours. Showing last filled while under hospital admission. Medication is not showing on active list of medications to send a direct refill request to provider. Patient has only 1 dose remaining. She has enough for dose this evening and then will be out. She states that she also requested refill on this medication when she called earlier this week. Asking for Rx to be sent to local [facility]: [facility] [address] [place] [id number] [address] - [phone] [[id number]] Patient has been identified by name and birthdate. Requesting response back: call on cell if any concerns to send to pharmacy today. [phone] (home) [phone] (work) [phone] (cell) Candi Rueda Adm Asst June 17, 2024 documented in this encounter [facility] 06-17-2024 Telephone encounter Note Sonya Meyer is calling Marcelina Rangel MD, PhD today regarding Refill Request (Lovenox). Patient calling for update on refill for the following medication: noxaparin (LOVENOX) 80 mg/0.8 mL Sig: Expel 0.1 mL then inject remaining 0.7 mL subcutaneously every 12 hours. Showing last filled while under hospital admission. Medication is not showing on active list of medications to send a direct refill request to provider. Patient has only 1 dose remaining. She has enough for dose this evening and then will be out. She states that she also requested refill on this medication when she called earlier this week. Asking for Rx to be sent to local [facility]: [facility] [address] [place] [id number] [address] - [phone] [facility] [[id number]] Patient has been identified by name and birthdate. Requesting response back: call on cell if any concerns to send to pharmacy today. [phone] (home) [phone] (work) [phone] (cell) Candi Marybeth [facility] Asst June 17, 2024 [facility] 06-16-2024 Telephone encounter Note Spoke with patient and advised per [facility] they are unable to compound her pantoprazole and they suggested [facility] in [place]. Provided contact information for [facility] to patient and will send pantoprazole Rx to [facility]. Patient verbalized understanding and agreeable to plan. [facility] 06-16-2024 Miscellaneous Notes Spoke with patient and advised per [facility] they are unable to compound her pantoprazole and they suggested [facility] pharmacy in [place]. Provided contact information for [facility] to patient and will send pantoprazole Rx to [facility] pharmacy. Patient verbalized understanding and agreeable to plan. Ame, Pharmacist from [facility] is calling Marcelina Rangel MD, PhD today regarding 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 - Other (Pantoprazole-Can't Compound) Patient has been identified by name and birthdate. Ame stated per the new [place] law only registered compounding pharmacies can do compound medication and not retail pharmacy, so they aren't able to dispense this medication. She mentioned one of the compounding pharmacies that we can reach out to instead: [facility] in [place]. She also stated they would reach out to the patient to inform her the same. Helga España June 16, 2024 documented in this encounter [facility] 06-16-2024 Telephone encounter Note Ame, Pharmacist from [facility] is calling Marcelina Rangel MD, PhD today regarding 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 - Other (Pantoprazole-Can't Compound) Patient has been identified by name and birthdate. Ame stated per the new [place] law only registered compounding pharmacies can do compound medication and not retail pharmacy, so they aren't able to dispense this medication. She mentioned one of the compounding pharmacies that we can reach out to instead: [facility] in [place]. She also stated they would reach out to the patient to inform her the same. Helga España June 16, 2024 [facility] 06-15-2024 Telephone encounter Note Prescription Refill Information The patient has been identified by name and date of : Yes Caregiver verified no other encounters exist for this prescription request: Yes Caregiver confirmed with patient/requestor that no other refills are due, in the near future, with this provider at this time: Yes The last office visit in the department: 05/28/24 Does the patient have a future office visit with this provider/department: Yes Requested Prescriptions Pending Prescriptions Disp Refills cetirizine (ZYRTEC) 10 mg tablet 30 tablet 0 Sig: Take 1 tablet by mouth once daily. acyclovir (ZOVIRAX) 400 mg tablet 60 tablet 0 Sig: Take 1 tablet by mouth two times a day. levoFLOXacin (LEVAQUIN) 500 mg tablet 30 tablet 0 Sig: Take 1 tablet by mouth daily at 6 am. gabapentin (NEURONTIN) 300 mg capsule 90 capsule 0 Sig: Take 1 capsule by mouth once daily in the morning and 2 capsules at bedtime for 30 days pantoprazole oral liquid 2 mg/mL (CPD) 600 mL 0 Sig: Take 20ml by mouth once daily for 30 days Melissa Neal June 15, 2024 12:28 PM [facility] 06-15-2024 Miscellaneous Notes Prescription Refill Information The patient has been identified by name and date of : Yes Caregiver verified no other encounters exist for this prescription request: Yes Caregiver confirmed with patient/requestor that no other refills are due, in the near future, with this provider at this time: Yes The last office visit in the department: 05/28/24 Does the patient have a future office visit with this provider/department: Yes Requested Prescriptions Pending Prescriptions Disp Refills cetirizine (ZYRTEC) 10 mg tablet 30 tablet 0 Sig: Take 1 tablet by mouth once daily. acyclovir (ZOVIRAX) 400 mg tablet 60 tablet 0 Sig: Take 1 tablet by mouth two times a day. levoFLOXacin (LEVAQUIN) 500 mg tablet 30 tablet 0 Sig: Take 1 tablet by mouth daily at 6 am. gabapentin (NEURONTIN) 300 mg capsule 90 capsule 0 Sig: Take 1 capsule by mouth once daily in the morning and 2 capsules at bedtime for 30 days pantoprazole oral liquid 2 mg/mL (CPD) 600 mL 0 Sig: Take 20ml by mouth once daily for 30 days Melissa Neal June 15, 2024 12:28 PM documented in this encounter [facility] 06-11-2024 History of Present illness Narrative Genetic test results Sonya Meyer's Custom Multi-Cancer panel and Hereditary Myelodysplastic Syndrome/Leukemia Panel plus preliminary evidence genes, Hereditary Lymphoma Panel, and Primary Immunodeficiency Panel through [facility] identified a single pathogenic variant in the gene JAK3 c.1207C>T (p.Ucp155Dxd). 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 Variant(s) of uncertain significance (VUS) detected: OKPQ0Z8 c.202G>A (p.Doq02Yog) and DOCK8 c.3337T>C (p.Zbv6744Znw). A VUS is a genetic variant for which insufficient data exists in order to determine if it is associated with disease (deleterious mutation) or is a normal genetic variant which can occur in the population without disease (benign polymorphism). The remainder of her testing was negative for any other pathogenic variants. Please see [employer] message for further discussion. Reema Altamirano Licensed, Certified Genetic Counselor documented in this encounter [facility] 06-11-2024 Telephone encounter Note I called Sonya to disclose her genetic testing results. Please see [employer] for details. LUIS ANGEL Hendricks, [facility] Licensed, Certified Genetic Counselor [facility] 06-11-2024 Miscellaneous Notes I called Sonya to disclose her genetic testing results. Please see [employer] for details. LUIS ANGEL Hendricks, [facility] Licensed, Certified Genetic Counselor documented in this encounter [facility] 06-10-2024 Telephone encounter Note Spoke with Arin and she advised patient's pentamidine and albuterol orders need to be placed under [facility]. Message routed to pharmacy for advisement. [facility] 06-10-2024 Miscellaneous Notes Spoke with Arin and she advised patient's pentamidine and albuterol orders need to be placed under [facility]. Message routed to pharmacy for advisement. [facility] is calling Marcelina Rangel MD, PhD today regarding 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 - Other (Breathing Treatment ) Patient has been identified by name and birthdate. Arin is requesting a call back from the care team. Arin stated that she needs an order for the correct breathing treatment for the patient. Arin can be reached at [phone]. Melissa Neal June 10, 2024 documented in this encounter [facility] 06-10-2024 Telephone encounter Note [facility] is calling Marcelina Rangel MD, PhD today regarding 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 - Other (Breathing Treatment ) Patient has been identified by name and birthdate. Arin is requesting a call back from the care team. Arin stated that she needs an order for the correct breathing treatment for the patient. Arin can be reached at [phone]. Melissa Neal June 10, 2024 [facility] 06-08-2024 Surgery Surgical operation note BRIEF OPERATIVE / PROCEDURE NOTE LOG ID: [id number] SURGERY/PROCEDURE DATE: 06/08/2024 INCISION/PROCEDURE START TIME: 12:33 PM INCISION CLOSE/PROCEDURE END TIME: 12:39 PM SURGEON(S)/PROCEDURALIST(S) AND CREDIT PRODUCTS OFFICER(S): Surgeons and Role: * Kathy Krause APRN.DATA REVIEW SPECIALIST - Primary * Cory Bowman PARosanneC - Physician Wagon Washer No Additional Staff SURGERY/PROCEDURE(S): Fluoro guided LP with IT chemo injection ANESTHESIA: Local 1% Lidocaine, 5cc FINDINGS: Successful LP, L2-L3, IT injection methotrexate (PF) 15 mg, hydrocortisone sodium succinate (PF) 50 mg in NaCl (PF) 0.9% 3 mL ESTIMATED BLOOD LOSS: 0 ml SPECIMENS: None COMPLICATIONS: None CLOSURE TECHNIQUE: Non-primary PRE-OP/PRE-PROCEDURE DIAGNOSIS: TLL (T-cell lymphoblastic lymphoma) (HCC) POST-OP/POST-PROCEDURE DIAGNOSIS: Same as Preop SIGNATURE: Kathy Krause APRN.CNP PATIENT NAME: Sonya Meyer DATE: June 08, 2024 TIME: 12:42 PM [facility] Work Phone: 06-08-2024 Surgical operation note BRIEF OPERATIVE / PROCEDURE NOTE LOG ID: [id number] SURGERY/PROCEDURE DATE: 06/08/2024 INCISION/PROCEDURE START TIME: 12:33 PM INCISION CLOSE/PROCEDURE END TIME: 12:39 PM SURGEON(S)/PROCEDURALIST(S) AND CREDIT PRODUCTS OFFICER(S): Surgeons and Role: * Kathy Krause APRN.CNP - Primary * Cory Bowman PA-C - Physician Wagon Washer No Additional Staff SURGERY/PROCEDURE(S): Fluoro guided LP with IT chemo injection ANESTHESIA: Local 1% Lidocaine, 5cc FINDINGS: Successful LP, L2-L3, IT injection methotrexate (PF) 15 mg, hydrocortisone sodium succinate (PF) 50 mg in NaCl (PF) 0.9% 3 mL ESTIMATED BLOOD LOSS: 0 ml SPECIMENS: None COMPLICATIONS: None CLOSURE TECHNIQUE: Non-primary PRE-OP/PRE-PROCEDURE DIAGNOSIS: TLL (T-cell lymphoblastic lymphoma) (HCC) POST-OP/POST-PROCEDURE DIAGNOSIS: Same as Preop SIGNATURE: Kathy Krause APRN.CNP PATIENT NAME: Sonya Meyer DATE: June 08, 2024 TIME: 12:42 PM documented in this encounter [facility] 05-28-2024 History of Present illness Narrative Radiology Service Progress Note PATIENT NAME: Sonya Meyer DATE OF SERVICE: May 28, 2024 TIME: 1:45 PM PATIENT IDENTITY VERIFICATION COMPLETED USING TWO (2) IDENTIFIERS: Name and Date of confirmed by patient verbally. FALL SCREENING: Has the patient had 2 falls in the last year or 1 fall with injury or currently using an Ambulatory Assistive Device (Walker, Cane, Wheelchair, Crutches, etc.)? No PATIENT GENDER DATA: Female. status: : No status: NO. PATIENT RELEVANT IMPLANT DATA REVIEWED: Not Applicable PATIENT PRESENTS WITH AN IMPLANTABLE OR ATTACHED SAFETY AND SECURITY MANAGER: No RADIOLOGY DEPARTMENT: General X-ray: Exam(s) Completed: Chest X-Ray PERIPHERAL IV DATA: Not applicable SIGNED BY: RT Saad(R) May 28, 2024 1:45 PM documented in this encounter [facility] 05-28-2024 Nurse Note Additional intake questions: Has the patient had fever, nausea, vomiting, diarrhea, constipation, fatigue for > 1 week? Yes, nausea, fatigue, and Provider Notified Does the patient have a decreased appetite? No Does patient want to see a Block Inspector? No (yes to any of above refer patient to schedulers for dietitian appointment) ) Does patient have any new or increased numbness or tingling of extremities? No Is patient interested in fertility information? No Does patient need any prescription refills? No Does patient have an advanced directive in place? Yes, copies are in Epic Headache only on left side of head. Hips down 10 out of 10 paint. [facility] 05-28-2024 Nurse Note Additional intake questions: Has the patient had fever, nausea, vomiting, diarrhea, constipation, fatigue for > 1 week? Yes, nausea, fatigue, and Provider Notified Does the patient have a decreased appetite? No Does patient want to see a Block Inspector? No (yes to any of above refer patient to schedulers for dietitian appointment) ) Does patient have any new or increased numbness or tingling of extremities? No Is patient interested in fertility information? No Does patient need any prescription refills? No Does patient have an advanced directive in place? Yes, copies are in Epic Headache only on left side of head. Hips down 10 out of 10 paint. 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 No BM or ADJUSTER LEADER involvement at diagnosis Other oncology history - none Current treatment - CVP (C1D1: 04/23/2024, C2D1: 05/14/2024) IT Methotrexate (05/03/2024 and 05/10/2024) Bortezomib (Dose1 04/30/2024), total three doses so far, last dose on 05/19/2024 Prior treatment - none Transfusion status - Jevoha's witness. NO blood product administration. Draw all labs in pediatric tubes if possible. Current Status - ongoing treatment, not in remission. Interval visit 05/28/2024 Since discharge from hospital, she followed up with her local oncologist Dr Erickson on 05/18 and seen in clinic here at [facility] on 05/19/2024. Received Bortezomib doses on 05/19, and recommended to continue steroid taper, finished on 05/27/2024. Her blood sugars have been in range, she stopped insulin on 05/26/2024. Fluconazole was held due to elevated liver enzymes. Labs done outside revealed WBC of 41k and K of 2.8 mEq. Hence, she was scheduled for today's visit. She denies any fever/chills or URI/UTI/GI symptoms. She endorses pain in b/l thigh (L>R) radiating to thighs, and sharp pain at level below b/l knees. She endorses early morniong headache starting in left temporal/ear area and spreading diffusely, ongoing since she was hospitalized. The pain reaches 10/10 on most occasions and affects her sleeping. She required 2-pills of extra- strength tylenol yesterday evening, on top of her gabapentin intake. She is continuing NG-tube feeds at 55mL/h. She discussed with thoracic team, who advised to undergo surgery for TEF after her chemotherapy is completed. Clinical course, treatment dates, hospitalizations and response assessments - (a) Presenting symptoms - Transferred to [facility] on 04/17/2024 after presenting to outside hospital with ~2 weeks of dyspnea and cough, followed by facial swelling. 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 A bone marrow biopsy was performed on 04/19/2024 which showed no evidence of marrow involvement. NGS testing was performed and notable for a TP53 mutation. Given patient's synagogue preferences ([employer]), she was started on cycle 1 CVP therapy on 04/23/2024. Her treatment course was complicated by acute hypoxic respiratory failure secondary to multifactorial issues (right lower lobe pulmonary embolism, left lower lobe pneumonia, superior vena cava syndrome), however was able to be weaned back down to room air. ID was consulted, and patient completed course of Zosyn from 04/19 to 04/26. Vascular medicine was consulted, and patient was started on therapeutic doses of Lovenox. While admitted, Ms. Meyer had repeat episodes of dysphagia, so a Corpak was placed and speech pathology was consulted. Ms. 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 Thoracic surgery was consulted and recommended no acute surgical intervention given large mediastinal mass with plan for outpatient follow-up post-discharge. Her course was also complicated by transaminitis for which she underwent a liver MRI which revealed diffuse hepatic steatosis and a contracted gallbladder with stones but without any suspicious liver lesions nor lymphoproliferative involvement of the abdomen. Hepatology was consulted and it was thought to be due to Injury from vincristine (vinca alkaloid) vs. Bortezomib vs. possible leukemia infiltrative process. Ms. Meyer was also noted to have steroid-induced hyperglycemia for which endo was consulted and recommended insulin at discharge. She was seen by a certified breastfeeding educator and educated on use with plans to follow up with Endocrinology outpatient post discharge. Prior to discharge, Ms. Meyer was educated on line care, TF care, and administration of Lovenox/Insulin. She was started on C2 of CVP on 05/14/2024 without complication and subsequently discharged on 05/17/2024. (b) Baseline diagnostic evaluations - Presented to [facility] ED on 04/07 with complaints of SOB and cough x2 weeks and new facial swelling. 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 CT Chest 04/18: Large anterior mediastinal mass reportedly related to known T-cell LBL. Attempted to get LN Biopsy slides from [facility]: called and spoke to path lab, and fax request sent. CT-guided core needle mediastinal biopsy (04/23/24) at [facility] Demonstrated fragmented cores of lymphoid tissue showing areas with significant crush artifact limiting morphologic evaluation. A relatively diffuse proliferation of intermediate to large lymphoid cells is seen with mildly irregular nuclear contours, finely dispersed chromatin, inconspicuous nucleoli and scant cytoplasm. Apoptotic bodies and mitoses are present. Immunohistochemical/in situ hybridization stains were performed on sections from block A1 for further evaluation of the atypical lymphoid proliferation. CD3 shows numerous positive cells throughout that coexpress CD34, NOTCH1, LMO2, CD5 (minor subset) and are negative for CD20, TdT, CD30, ALK1, CD2 and chromogenic in situ hybridization for EBV-encoded small RNA (JUANITO). Ki-67 proliferation fraction is difficult to interpret due to significant crush artifact, but appears high with many positive cells. Flow cytometric immunophenotypic studies demonstrate an abnormal T-cell population that is positive for CD3, CD4, CD7 with very dim to negative CD5 expression and monotypic TRBC1 expression. The abnormal T cells are negative for CD2 and CD8. NGS: TP53 mutation p.R248Q, [id number], c.743G>A, VAF: 93.8% RNA sequencing: No fusions detected. FLT3 Internal Tandem Duplication (ITD) mutation: Not Detected -S/P BMBx (04/19/24) :No e/o leukemia -S/P breast biopsy on 04/20 - no blastoid features; benign fibroadenoma -LP with IT chemo (05/03/24): Negative -LP with IT chemo (05/10/24) - Negative -Repeat CT Chest (05/10/2024) - Slightly decreased large anterior and superior mediastinal mass -PET/CT (05/12/2024) - anterior mediastinal mass w/ heterogenous uptake and areas suggestive of necrosis Review of systems including interval history: Constitutional: No fever, chills, night sweats, anorexia or malaise. Eyes: No change in vision, blurriness, diplopia, redness, or irritation. ENT: No mouth sores or bleeding gums; no hoarseness of voice. . No epistaxis or other nasal problems. No changes in hearing, vertigo, or tinnitus. Respiratory: No coughing, wheezing, dyspnea at rest, exertional dyspnea, or hemoptysis. Cardiovascular: No anginal symptoms, palpitations, orthopnea, PND, syncopal events or presyncopal events. Gastrointestinal: Occasional nausea, No vomiting, heartburn or acid reflux, diarrhea, constipation or abdominal cramping. Bowel habit is unchanged; and no melena or hematochezia. Genitourinary: No urgency, frequency, dysuria, or hematuria. No hesitancy or decreased urinary stream, incomplete emptying or ncontinence. Musculoskeletal: Per HPI Skin: Abdominal skin has anticipatory rash from lovenox injections. Neurological: No syncope, near-syncope, or seizures or alteration in sensorium or motor strength. 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 Endocrine: Negative for temperature intolerance, unusual sweating, or symptoms of glucose intolerance. Hematologic/Lymphatic: Negative for prolonged bleeding, easy bruising, and swollen nodes. No lower extremity edema. Allergic/Immunologic: No itching, or jaundice. Past medical and surgical history: - Jehova's witness - Uterine fibroids s/p hysterectomy Family and social history: Paternal grandmother Stomach cancer Father's brother: Lump in neck, unclear cancer Father: Prostate cancer Allergies: None Physical Examination: Vitals: 05/28/24 1037 BP: 151/93 Pulse: (!) 131 Resp: 18 SpO2: 99% Weight: 71.5 kg (157 lb 10.1 oz) General: of very pleasant disposition, sitting comfortably in wheel chair, with NG tube and Tube-feeds running, in no acute distress, accompanied by her ECOG performance is 1 HEENT: EOMI; PERRL, no thrush or petechiae Neck: Supple, no thyromegaly, CV: Tachycardia, S1S2 normal, no M/R/G Chest: Clear to auscultation bilaterally without any wheezes, rales or rhonchi. Abd: soft, obese, NT/ND, + BS, no hepatosplenomegaly Ext: No edema Neuro: No focal deficits LN: No supraclavicular, infraclavicular, axillary, epitrochlear or inguinal lymphadenopathy. Current Medications: Reviewed from [facility] and confirmed with the patient. Labs: Reviewed from [facility] and integrated in assessment and plan. 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 Plan to start C3D1 on 06/04/2024 - IT Methotrexate (on 05/03 and 05/10), next dose on 06/04 - S/P 3 doses of Bortezomib (Last dose-05/19/24) - Completed steroids taper on 05/27/2024 - Received filgrastim-aafi on 05/06/2024 and 05/17/2024. - S/p Procrit 40,000 units x on 05/06 - Rad Onc was consulted while hospitalization in 04/2024-- no role for palliative RT at this time - Needs better pain control. Likely contributing to her tachycardia and elevated BP today. Will plan to add oxycodone as needed. Leukocytosis The recent labs done outside revealed WBC 41k. Dds refractory disease vs Infection vs Medication induced (Filgrastim and steroid). She does not endorse active symptoms of infection. Appears most likely medication induced, she received filgrastim on 05/17 and was on steroid until 05/27. Will plan further course (home vs admission) based on CBC today, and work up to rule out infection. - Order Blood Culture x 2 (Port and peripheral) - CXR - CBC Hypokalemia Received call from outside labs regarding low K levels 2.8 BMP, Mg If today's lab show hypokalemia, will plan for supplementation through NG tube. 2) Steroid induced hyperglycemia - Resolved, off of steroid now. Blood glucose stable at home. 3) Thrombosis -CTA Neck 04/07: There is thrombus within the left jugular vein extending up to the level of the angle of the mandible. Presumably this is propagating from the chest. Was transferred to [facility] on heparin gtt -CT Chest 04/18: RLL PE -BUE/BLE DVT US 04/20 - Positive for R arm DVTs - RIJ, innominate, subclavian, axillary, and brachial veins --OK to keep PICC line per discussion with vascular medicine on 04/20 -Per vascular patient will require AC at least 3-6 months duration of treatment, No current candidate for DOAC. Continue Lovenox 1 mg/kg BID. May be transitioned outpatient potentially. 4) Transminitis: -Liver MRI (05/06/24): Diffuse hepatic steatosis. No suspicious liver lesion Liver enzymes were uptrending since 04/17/2024. AST and ALT although up, but decreasing trend since 05/13/2024. Evaluated by Hepatology while hospitalized--> Injury from vincristine (vinca alkaloid) Vs Bortezomib Vs Possible leukemia infiltrative process. Consider liver bx if LFTs do no improve. Continue CMP weekly. 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 - Evaluated by thoracic during hospitalization, recommended continue TF. No acute surgical intervention recommended as of now -Will hold off on PEG tube placement at this time, maintain corpak Patient discussed with thoracic outpatient, they will plan surgery for TEF once, she completes chemotherapy 6) Right Breast nodule: Patient states she has had multiple mammograms and breast US in the past for this nodule and it is not new. Underwent breast biopsy on 04/20: no blastoid features; benign fibroadenoma. Routine follow up with local oncologist/PCP Nilo Beltran MD PGY2 Visiting Resident Internal Medicine I have taken history, personally examined the patient and reviewed the labs and other pertinent results. I agree with the above plan of care detailed by the resident and it includes my edits. Marcelina Rangel MD PhD MPH Associate Staff Hematologic Oncology and Blood Disorders Pager [phone] Date of service: May 28, 2024 I spent a total of 60 minutes on the date of the service which included preparing to see the patient, [id number] patient care, completing clinical documentation, obtaining and/or reviewing separately obtained history, performing a medically appropriate examination, counseling and educating the patient/family/caregiver, ordering medications, tests, or procedures, independently interpreting laboratory and imaging results (not separately reported), communicating results to the patient/family/caregiver, and care coordination (not separately reported). documented in this encounter [facility] 05-20-2024 Telephone encounter Note 1:36 PM: Spoke with Tita celis: her questions about Corpak bags from yesterday's appointment - discussed how insurance often drives how many bags/supplies are provided at a given time but if questions, they'd be a good resource with whom to discuss further. Welcomed her to please call with any further questions or concerns - she verbalizes appreciation and understanding. Also advised that I had paged inpatient dietary but am still awaiting a call back in case there is additional information I can provide - will call her back when I hear from them. Mague Fabian APRN.YEHUDA [facility] 05-20-2024 Miscellaneous Notes 1:36 PM: Spoke with Tita lalita: her questions about Corpak bags from yesterday's appointment - discussed how insurance often drives how many bags/supplies are provided at a given time but if questions, they'd be a good resource with whom to discuss further. Welcomed her to please call with any further questions or concerns - she verbalizes appreciation and understanding. Also advised that I had paged inpatient dietary but am still awaiting a call back in case there is additional information I can provide - will call her back when I hear from them. Mague Fabian APRN.YEHUDA documented in this encounter [facility] 05-20-2024 Instructions Laly Buchanan APRN.DATA REVIEW SPECIALIST - 05/20/2024 9:30 AM EDT Novolin insulin 7 units with breakfast, 9 units with lunch, 7 units with dinner plus sliding scale Sliding Scale Insulin Dosing Sliding Scale 2 (2 units for every 50 mg/dL > 150 mg/dL) SUPPLEMENTAL INSULIN If Blood Glucose (mg/dL) is < 150 Give 0 units 151-200 Give 2 units 201-250 Give 4 units 251-300 Give 6 units 301-350 Give 8 units 351-400 Give 10 units >400 Give 12 units, call physician if blood glucose does not improve. Check your blood sugar as you are at 6am, 2pm, and 10pm Please let me know if you are experiencing low blood sugar, (less than 70) Low Blood Sugar (Hypoglycemia) What is it? A blood sugar less than 70 mg/dL What are some symptoms? Sleepy Shaking Sweating Dizziness Hunger What can cause it? Too much medication Not enough carbohydrates Skipped meals Increased activity How do I treat it? 1. Eat or drink 1 carb choice (15 grams). For example: One half (1/2) cup juice or regular soda Three to five (3-5) pieces of candy (not chocolate) Three to four (3-4) glucose tabs 2. Wait 15 minutes. If still less than 70 mg/dL, repeat treatment. 3. Once blood sugar is above 70 mg/dL, have a back-up snack to prevent another low. 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 This is a virtual visit using [employer] Video Visit. It required patient-provider interaction for the medical decision making as documented below. I have communicated my name and active licensure. The patient's identity and physical location were verified at the time of this visit. Either the patient or their legal entry level account representative has been informed of the risks and benefits of -- and alternatives to -- treatment through a remote evaluation and consents to proceed with the evaluation remotely. 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 Past medical history significant for uterine fibroids s/p hysterectomy, [employer]. Last HbA1c was 5.8 on 04/21/24. Date of Diagnosis: during admission on 04/17/24 Last HbA1c: Hemoglobin A1C (%) Date Value 04/21/2024 5.8 Family history of diabetes includes Father Complications Microvascular: none Macrovascular: none Diabetic Foot and Retinal Eye Exam not Overdue Prior DM Medications: None Current DM Related Medications: Current Medications 05/20/2024 DIABETES THERAPIES Medication Dosage Pharm Subclass insulin regular human (NOVOLIN R FLEXPEN) 100 unit/mL (3 mL) pen Inject 7 units at 6 AM, 2 PM, and 10 PM (while tube feed infusing) + sliding scale If Blood Glucose (mg/dL) is <110 Give 0 units 111-150 Give 0 units 151-200 Give 1 unit 201-250 Give 2 units 251-300 Give 3 units 301-350 Give 4 units 351-400 Give 5 units >400 Give 5 units and Call physician. Max 36 units per day. Human Insulins - Short Acting insulin regular human (NOVOLIN R REGULAR U100 INSULIN) 100 unit/mL injection Inject subcutaneously 7 units three times daily at 6AM, 2PM and 10 PM with tube feeds plus sliding scale: If Blood Glucose (mg/dL) is <110 Give 0 units 111-150 Give 0 units 151-200 Give 1 unit 201-250 Give 2 units 251-300 Give 3 units 301-350 Give 4 units 351-400 Give 5 units >400 Give 5 units and Call physician. TDD up to 36 units Human Insulins - Short Acting ANTICOAGULANTS Medication Dosage Pharm Subclass enoxaparin (LOVENOX) 80 mg/0.8 mL Expel 0.1 mL then inject remaining 0.7 mL subcutaneously every 12 hours. Low Molecular Weight Heparins OTHER Medication Dosage Pharm Subclass acyclovir (ZOVIRAX) 400 mg tablet Take 1 tablet by mouth two times a day. Herpes Antiviral Agent - Purine Analogs blood sugar diagnostic (ONETOUCH VERIO TEST STRIPS) test strip Check blood sugar every 8 hours while Tube feeding is running (0600, 1400, 2200) Patient instructed to record readings in the log book provided and take to all follow-up appointments, along with meter. Medical Supplies and DME - Blood Glucose Tests cetirizine (ZYRTEC) 10 mg tablet Take 1 tablet by mouth once daily. Antihistamines - 2nd Generation gabapentin (NEURONTIN) 300 mg capsule Take 1 capsule by mouth once daily in the morning and 2 capsules at bedtime for 30 days Anticonvulsant - EDIL Analogs glucagon (GVOKE HYPOPEN 1-PACK) 1 mg/0.2 mL auto-injector Inject 1 mg subcutaneously as needed. Agents to treat Hypoglycemia (Hyperglycemics) hydrOXYzine HCl (ATARAX) 25 mg tablet Take 1 tablet by mouth three times a day as needed for anxiety or itching/rash. Antianxiety Agent - Antihistamine Type Insulin [place], Disposable, (BD ULTRA-FINE ALYSSA PEN NEEDLE) 32 gauge x 5/32 Use three times a day. Medical Supplies and DME - Insulin Ashdown-Syringes and Admin Supplies insulin syr/ndl U100 half nimesh (BD INSULIN SYRINGE, HALF UNIT,) 0.3 mL 31 gauge x 5/16 syrg Use with insulin injections three times daily Medical Supplies and DME - Insulin Ashdown-Syringes and Admin Supplies lancets (ONETOUCH DELICA PLUS LANCET) 33 gauge Check blood sugar every 8 hours while Tube feeding is running (0600, 1400, 2200) Patient instructed to record readings in the log book provided and take to all follow-up appointments, along with meter. Medical Supplies and DME - Glucose Monitoring Test Supplies levoFLOXacin (LEVAQUIN) 500 mg tablet Take 1 tablet by mouth daily at 6 am. Fluoroquinolone Antibiotics nutritional supplements (OSMOLITE 1.2 YURI) 0.06 gram-1.2 kcal/mL liqd 55 mL/hr by FEEDING TUBE route continuous. Tube Feeding Formula Type: Osmolite 1.2 or equivalent Rate: 55 ml/hr x 24 hours (1320 ml total volume, 1584 kcals, 73 gm prot) Water Flush: Flush with 70 mL every 4 hours Nutritional Product - Nutritional Therapy ondansetron orally disintegrating (ZOFRAN ODT) 8 mg disintegrating tablet Dissolve 1 tablet by mouth every 8 hours as needed for nausea/vomiting. Antiemetic - Selective Serotonin 5-HT3 Antagonists pantoprazole oral liquid 2 mg/mL (CPD) Take 20ml by mouth once daily for 30 days predniSONE (DELTASONE) 5 mg tablet Take 8 tablets by mouth two times a day for 3 days, THEN 4 tablets two times a day for 2 days, THEN 2 tablets two times a day for 2 days, THEN 1 tablet two times a day for 2 days. Glucocorticoids sodium chloride 0.9 %, flush, (BD POSIFLUSH) syringe Inject 10 mL intravenously once daily. Sodium Chloride Flushes Physical Activity: Regular Diet: No specific diet regimen SMBG Frequency of Monitoring: Three times a Day BG Values: Breakfast: 143, 131, 152, 83 (05/17-05/20) Lunch: 197, 207 (05/18-05/19) Dinner: 167, 159 (05/18-05/19) Hypoglycemia Frequency: None She is on TF 24 hours at 55cc/hr Past History, Medications, Allergies No past medical history on file. No past surgical history on file. ALLERGIES No Known Allergies FAMILY HISTORY Problem Relation Age of Onset other (anemia) Mother Prostate Cancer Father 50 - 59 s/p prostatectomy Diabetes Father type I No Known Problems Maternal Grandmother No Known Problems Maternal Grandfather limited info Cancer Paternal Grandmother 87 unknown Dx No Known Problems Paternal Grandfather Cancer Paternal Uncle 50 - 59 lymph node, unknown pathology Diabetes Brother type I other (anemia) Half-sister Review of Systems GENERAL: Weight loss, Negative for malaise, fever RESPIRATORY: Negative for cough, hemoptysis, wheezing, COPD, dyspnea or shortness of breath CARDIOVASCULAR: Negative for chest pain, leg swelling, hypertension, CHF or palpitations GI: No nausea, vomiting, or diarrhea ENDOCRINE: Negative for polyuria, polydipsia, goiter, Positive for cold intolerance: Feet: No problems NEUROLOGIC:Negative for focal numbness or weakness, headaches and dizziness or syncope. Physical examination Limited due to virtual visit Gen: well appearing, NAD Head: atraumatic normocephalic Eyes: EOMI no scleral icterus Neck: no obvious goiter Pulm: resp effort is appropraite Ext: no swelling cyanosis Neuro: hearing and speech normal Previous Laboratory Results LABS Glucose (mg/dL) Date Value 05/17/2024 125 05/16/2024 172 05/16/2024 229 Potassium (mmol/L) Date Value 05/17/2024 4.0 Sodium (mmol/L) Date Value 05/17/2024 143 05/16/2024 138 05/16/2024 139 Chloride (mmol/L) Date Value 05/17/2024 103 05/16/2024 100 05/16/2024 101 CO2 (mmol/L) Date Value 05/17/2024 26 05/16/2024 25 05/16/2024 24 Creatinine (mg/dL) Date Value 05/17/2024 0.32 05/16/2024 0.37 05/16/2024 0.32 BUN (mg/dL) Date Value 05/17/2024 22 05/16/2024 19 05/16/2024 18 Anion Gap (mmol/L) Date Value 05/17/2024 14 05/16/2024 13 05/16/2024 14 Calcium, Total (mg/dL) Date Value 05/17/2024 9.4 05/16/2024 9.4 05/16/2024 9.2 Estimated Glomerular Filtration Rate (mL/min/1.73m ) Date Value 05/17/2024 136 05/16/2024 132 05/16/2024 136 ALT (U/L) Date Value 05/17/2024 230 05/16/2024 271 05/16/2024 264 No results found for: TSH , FREET4 Impression/Recommendations IMPRESSION Sonya Meyer is a 38 year old here for evaluation of 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 Glycemic control: Target HbA1C is less than 7.0% per ADA guidelines. Plan Change Novolin to with TF (6am, 2pm, 10pm) Check your blood glucose 3 times per day and record data in logbook and bring to each visit We reviewed glucose targets as: Fasting 80-130, before meals 100-130, and bedtime 100-150 mg/dL. Call the office with blood sugars less than 70 Follow up with me in 1 month Patient to continue to follow up with his PCP and with other consultants regarding his other medical problems. The patient was reminded to check their blood glucose as directed and to record the data in a logbook. This patient was advised to bring their logbook to each office visit. I recommended at least 150 minutes per week of moderate physical activity, such as walking and to reduce carbohydrates and overall caloric intake. 2. Hypertension/BP control: BP goal for patients with diabetes is 130/80. -- This patient is at target on their current regimen. 3. Lipids: Target LDL cholesterol in patients with diabetes is less than 100, less than 70 if patient has overt CVD. Several studies have shown cardiovascular benefits of statin therapy in all patients with diabetes over age 40 with at least 1 CVD risk factor. Total Cholesterol, Nonfasting Date Value Ref Range Status 04/21/2024 212 (H) <200 mg/dL Final Comment: <200 mg/dL, Desirable 200-239 mg/dL, Borderline high >239 mg/dL, High HDL Cholesterol, Nonfasting Date Value Ref Range Status 04/21/2024 82 >39 mg/dL Final Comment: 40-59 mg/dL, Acceptable >59 mg/dL, High: Negative risk factor for coronary heart disease <40 mg/dL, Low: Positive risk factor for coronary heart disease LDL Cholesterol, Nonfasting Date Value Ref Range Status 04/21/2024 113 (H) <100 mg/dL Final Comment: <100 mg/dL, Optimal 100-129 mg/dL, Near optimal/above optimal 130-159 mg/dL, Borderline high 160-189 mg/dL, High >189 mg/dL, Very high Secondary prevention optimal LDL Cholesterol levels are recommended to be < 70 mg/dL Triglycerides, Nonfasting Date Value Ref Range Status 04/21/2024 84 <150 mg/dL Final Comment: <150 mg/dL, Normal 150-199 mg/dL, Borderline high 200-499 mg/dL, High >499 mg/dL, Very high -- This patient is currently at target not on statin therapy. 4. Nephropathy screening: Annual measurement of urine albumin excretion is recommended in patients with diabetes. Protein, Urine (no units) Date Value 04/24/2024 1+ (A) Creatinine, Ur Random (UCRR) (mg/dL) Date Value 04/23/2024 64.2 -- This patient does not have microalbuminuria and is not on MICHELLE-I or ARB therapy. 5. Ophthalmology: Annual dilated eye exams are recommended for patients with type 1 and type 2 diabetes. -- This patient is up to date with their annual eye exam and has no history of retinopathy. -- Last seen Laly Buchanan APRN.CNP May 20, 2024 Medical Decision Making: Problems: Moderate: New problem with uncertain prognosis Data: Unique test result(s) reviewed: 3+ Independent interpretation of test from other physician/QHCP Medical Decision Making Level: 4 - Moderate documented in this encounter [facility] 05-19-2024 History of Present illness Narrative Elements have been copied from discharge summary on 05/17/2024 - The elements have been reviewed and updated where appropriate, and all reflect my current assessment and decision-making from today, 05/19/2024. NAME: Sonya Meyer [facility] #: [id number] AGE: 38 DATE: 05/19/2024 PRIMARY ONCOLOGIST: Dr. Juan Carlos MD (PSYCHIATRIC); Dr. Erickson (Local at [facility] [place]) HPI: Ms. Sonya Meyer is a 38-year-old female who is a Roman Catholic with a PMHx significant for uterine fibroids s/p hysterectomy who was transferred to [facility] after presenting to outside hospital with ~2 weeks of dyspnea and cough, followed by facial swelling. 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 A bone marrow biopsy was performed on 04/19/2024 which showed no evidence of marrow involvement. NGS testing was performed and notable for a TP53 mutation. Given patient's synagogue preferences ([employer]), she was started on cycle 1 CVP therapy on 04/23/2024. Her treatment course was complicated by acute hypoxic respiratory failure secondary to multifactorial issues (right lower lobe pulmonary embolism, left lower lobe pneumonia, superior vena cava syndrome), however was able to be weaned back down to room air. ID was consulted, and patient completed course of Zosyn from 04/19 to 04/26. Vascular medicine was consulted, and patient was started on therapeutic doses of Lovenox. While admitted, Ms. Meyer had repeat episodes of dysphagia, so a Corpak was placed and speech pathology was consulted. Ms. 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 Thoracic surgery was consulted and recommended no acute surgical intervention given large mediastinal mass with plan for outpatient follow-up post-discharge. Her course was also complicated by transaminitis for which she underwent a liver MRI which revealed diffuse hepatic steatosis and a contracted gallbladder with stones but without any suspicious liver lesions nor lymphoproliferative involvement of the abdomen. Hepatology was consulted and it was thought to be due to Injury from vincristine (vinca alkaloid) vs. Bortezomib vs. possible leukemia infiltrative process. Ms. Meyer was also noted to have steroid-induced hyperglycemia for which endo was consulted and recommended insulin at discharge. She was seen by a certified breastfeeding educator and educated on use with plans to follow up with Endocrinology outpatient post discharge. Prior to discharge, Ms. Meyer was educated on line care, TF care, and administration of Lovenox/Insulin. She was started on C2 of CVP on 05/14/2024 without complication and subsequently discharged on 05/17/2024. Interval history: Ms. Meyer presents today for post-hospital discharge follow-up. She is accompanied by her spouse, Jose, and is seen today in the treatment area as she is due to receive her third dose of bortezomib today. She reports feeling ok overall but admits that she is still acclimating to being home and navigating her care without the 28/04 support of the inpatient hospital staff. She feels like she is getting there though and remains in good spirits. Denies any issues with her Corpak - is able to flush and administer her feeds without issue and also denies any potentially related symptoms, such as nausea, vomiting, or throat/abdominal pain. She notes that her stools are loose but consistently as they were in the hospital without any bleeding or discomfort. She denies pain except for aching in her hips which is exacerbated by certain positioning, such as sitting in the car on the drive here. She admits to taking Tylenol yesterday as she said she couldn't take the pain anymore but wanted to ask today if this is ok for her to do since there were concerns re: her liver function - of note, she says she receives good relief with Tylenol specifically. She denies any issues with her insulin nor her lovenox, and is able to inject them without difficulty. She notes that she has endured minimal bruising to her abdomen with these injections versus while she was in the hospital. She confirms that she is taking her medications as prescribed, including her prednisone taper, her prophylactic acyclovir and Levaquin. She did see Dr. Erickson locally yesterday as planned. They did not draw labs there yesterday as she just had them drawn prior to discharge on Friday so will plan draw next week and continue with weekly labs to minimize blood loss as able given she is a JW. Ms. Meyer denies any headaches, chest pain, palpitations, difficulty breathing, changes to bladder habits, swelling, rashes, or bleeding. She has been provided with Dr. Rangel's office phone number as well as Sreekanth Chappell's ([facility]) phone number and welcomed her to please call with any questions or concerns. REVIEW OF SYSTEMS: Completed and negative aside from that noted above in HPI/Interval history. ALLERGIES No Known Allergies Current Outpatient Medications Medication Sig Dispense Refill acyclovir (ZOVIRAX) 400 mg tablet Take 1 tablet by mouth two times a day. 60 tablet 0 cetirizine (ZYRTEC) 10 mg tablet Take 1 tablet by mouth once daily. 30 tablet 0 gabapentin (NEURONTIN) 300 mg capsule Take 1 capsule by mouth once daily in the morning and 2 capsules at bedtime for 30 days 90 capsule 0 hydrOXYzine HCl (ATARAX) 25 mg tablet Take 1 tablet by mouth three times a day as needed for anxiety or itching/rash. 60 tablet 0 levoFLOXacin (LEVAQUIN) 500 mg tablet Take 1 tablet by mouth daily at 6 am. 30 tablet 0 blood sugar diagnostic (ONETOUCH VERIO TEST STRIPS) test strip Check blood sugar every 8 hours while Tube feeding is running (0600, 1400, 2200) Patient instructed to record readings in the log book provided and take to all follow-up appointments, along with meter. 100 Strip 0 lancets (YebhiTOUCH DELICA PLUS LANCET) 33 gauge Check blood sugar every 8 hours while Tube feeding is running (0600, 1400, 2200) Patient instructed to record readings in the log book provided and take to all follow-up appointments, along with meter. 100 Each 0 Insulin [place], Disposable, (BD ULTRA-FINE ALYSSA PEN NEEDLE) 32 gauge x 5/32 Use three times a day. 200 Each 0 glucagon (GVOKE HYPOPEN 1-PACK) 1 mg/0.2 mL auto-injector Inject 1 mg subcutaneously as needed. 0.4 mL 0 predniSONE (DELTASONE) 5 mg tablet Take 8 tablets by mouth two times a day for 3 days, THEN 4 tablets two times a day for 2 days, THEN 2 tablets two times a day for 2 days, THEN 1 tablet two times a day for 2 days. 76 tablet 0 insulin regular human (NOVOLIN R FLEXPEN) 100 unit/mL (3 mL) pen Inject 7 units at 6 AM, 2 PM, and 10 PM (while tube feed infusing) + sliding scale If Blood Glucose (mg/dL) is <110 Give 0 units 111-150 Give 0 units 151-200 Give 1 unit 201-250 Give 2 units 251-300 Give 3 units 301-350 Give 4 units 351-400 Give 5 units >400 Give 5 units and Call physician. Max 36 units per day. 15 mL 1 enoxaparin (LOVENOX) 80 mg/0.8 mL Expel 0.1 mL then inject remaining 0.7 mL subcutaneously every 12 hours. 48 mL 0 ondansetron orally disintegrating (ZOFRAN ODT) 8 mg disintegrating tablet Dissolve 1 tablet by mouth every 8 hours as needed for nausea/vomiting. 45 tablet 0 pantoprazole oral liquid 2 mg/mL (CPD) Take 20ml by mouth once daily for 30 days 600 mL 0 insulin regular human (NOVOLIN R REGULAR U100 INSULIN) 100 unit/mL injection Inject subcutaneously 7 units three times daily at 6AM, 2PM and 10 PM with tube feeds plus sliding scale: If Blood Glucose (mg/dL) is <110 Give 0 units 111-150 Give 0 units 151-200 Give 1 unit 201-250 Give 2 units 251-300 Give 3 units 301-350 Give 4 units 351-400 Give 5 units >400 Give 5 units and Call physician. TDD up to 36 units 10 mL 0 insulin syr/ndl U100 half nimesh (BD INSULIN SYRINGE, HALF UNIT,) 0.3 mL 31 gauge x 5/16 syrg Use with insulin injections three times daily 100 Each 0 nutritional supplements (OSMOLITE 1.2 YURI) 0.06 gram-1.2 kcal/mL liqd 55 mL/hr by FEEDING TUBE route continuous. Tube Feeding Formula Type: Osmolite 1.2 or equivalent Rate: 55 ml/hr x 24 hours (1320 ml total volume, 1584 kcals, 73 gm prot) Water Flush: Flush with 70 mL every 4 hours 13023 mL 0 sodium chloride 0.9 %, flush, (BD POSIFLUSH) syringe Inject 10 mL intravenously once daily. 600 mL 0 No current facility-administered medications for this visit. Facility-Administered Medications Ordered in Other Visits Medication Dose Route Frequency Provider Last Rate Last Admin NaCl 0.9% iv infusion 500-999 mL/hr INTRAVENOUS PRN Viviana Johns MD diphenhydrAMINE 50 mg injection (BENADRYL) 50 mg INTRAVENOUS PRN Viviana Johns MD PHYSICAL EXAMINATION: ECOG PERFORMANCE STATUS: 1- Restricted in physically strenuous activity. Carries out light duty. GENERAL: Well-appearing female in NAD, sitting in infusion chair. Appears well hydrated and well nourished. HEENT: No scleral icterus, PERRLA, EOMI. Oropharynx free of lesions, erythema, or exudate LUNGS: CTA bilaterally. No cough CARDIAC: Regular rate and rhythm, no murmurs noted. WWP. ABDOMEN: BS+, NT, ND, no masses, no HSM SKIN: No obvious lesions or rashes. +Bruising to LLE from IV placed in OSH; to abdomen from injections EXTREMITIES: No BLE edema NEURO: Alert and oriented; CN II - XII grossly intact PSYCH: Appropriate affect, Pleasant & conversant ACCESS: PICC - site w/ dressing c/d/i LABORATORY VALUES: Reviewed; Please see Epic. ASSESSMENT AND PLAN: 1) T-cell acute lymphoblastic leukemia: -Presented to [facility] ED on 04/07 with complaints of SOB and cough x2 weeks and new facial swelling. She was found to have a large anterior mediastinal mass causing SVC syndrome -LN biopsy 04/07 showing T-cell LBL -Given dex 8mg IV BID at OSH -ECHO @[facility]: EF 50%. Small pericardial effusion, not consistent with tamponade physiology -CT Chest 04/18: Large anterior mediastinal mass reportedly related to known T-cell LBL. RLL PE extending into the right lower lobe segmental and subsegmental branches. LLL volume loss and peripheral peribronchial consolidation may be infectious PNA, organizing PNA from treatment effect, or chronic atelectasis or inflammation. 12 mm indeterminate right breast nodule. -CT AP 04/18: negative -Attempted to get LN Biopsy slides from [facility]: called and spoke to path lab, and fax request sent CT-guided core needle biopsy (04/23/24) positive for T-LBL -- flow cytometry and NGS ordered on tissue pending, NGS [id number] -S/P BMBx (04/19/24) :No e/o leukemia -S/P breast biopsy on 04/20 - no blastoid features; benign fibroadenoma -LP with IT chemo (05/03/24): Negative -LP with IT chemo (05/10/24) - Negative -Repeat CT Chest (05/10/2024) - Slightly decreased large anterior and superior mediastinal mass -PET/CT (05/12/2024) - anterior mediastinal mass w/ heterogenous uptake and areas suggestive of necrosis - S/p C1 CVP (D1 Cyclophosphamide and Vincristine = 04/23/2024) - s/p Procrit 40,000 units x 1 on 05/06/2024 - Rad Onc consulted -- no role for palliative RT at this time Plan: - Today is Cycle 2, day 6 of CVP (D1=05/14/2024) -S/p 2 doses of Bortezomib (Last dose-05/03/24) - will receive again today, 05/19/2024 - Continue Pred taper -> Take 8 tablets by mouth two times a day for 3 days starting 05/17/2024, THEN 4 tablets two times a day for 2 days, THEN 2 tablets two times a day for 2 days, THEN 1 tablet two times a day for 2 days. - Will start filgrastim-aafi - will receive today, 05/19/2024 - Follow-up with Dr. Rangel requested - Continue local follow-up with Dr. Erickson at [facility] [place] (Address is [address] [place] [address], [place], [address]. P: and fax is [phone]. 2) Immunocompromised status: Ms. Meyer has no active infection and is not neutropenic per her most recent labs on 05/17/2024. Continues on prophylactic Acyclovir, Levaquin, and monthly pentamidine (last administered 05/14/2024). Holding fluconazole due to elevated LFTs. Discussed s/sx of infection and/or when to proceed to nearest ED. Secured new thermometer from pharmacy for patient's use at home to monitor temperature. 3) Hematology: Ms. Meyer has anemia and thrombocytopenia and will need to have weekly count checks to monitor her blood counts with plan to use pediatric tubes whenever possible. To continue with labs locally 1x per week when not here at main campus. No blood products d/t being [employer]. 4) Renal: Her most recent sCr from 05/17/2024 is normal (0.32). Will monitor closely. 5) Transaminitis: -Liver enzymes up- trending as of 05/05 -US RUQ 05/04 - showing Hepatic steatosis with persistent indeterminant 2.3 cm lesion -Liver MRI (05/06/24): Diffuse hepatic steatosis. No suspicious liver lesion. No lymphoproliferative involvement of the abdomen. Contracted gallbladder with stones. -Hepatitis A IgG and IgM neg, Fractionate bilirubin-Conjugated, Ferrtin elevated, MAXIMILIANO/ASMA/ AMA neg, Ceruloplasmin neg - Hepatology consulted while inpatient and suspecting Injury from vincristine (vinca alkaloid) vs. Bortezomib vs. Possible leukemia infiltrative process. Plan: - Monitor CMP with weekly lab monitoring (pediatric tubes as able) - LFTs appear to have been consistently trending downard. - Avoid hepatotoxic agents as able - Cautioned patient on Tylenol use and if absolutely necessary given this is what helps her pain, counseled her to limit to sporadic, emergency use only in the near short term and to check temperature prior to taking - she states she will only take it if absolutely necessary. - Follow-up appointment with GI/Hepatology scheduled for 07/01/2024. Per inpatient notes, to Consider liver bx if LFTs do no improve. 6) Dysphagia: - Patient reporting difficulty swallowing pills on admission - Likely secondary to mechanical obstruction, Mediastinal Mass (See T-ALL problem) - Seen by WARD SERVICE SUPERVISOR: Failed Bedside Swallow eval. - Corpak placed (04/23/24) and Started TF - NST contacted for repositioning-->recommended post pyloric placement via EGD - Reached out to WARD SERVICE SUPERVISOR-->Concern persists for the potential impact of Mediastinal mass has on swallowing physiology and increased risks for aspiration. 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 - GI follow-up currently scheduled for 07/01/2024 7) Steroid-induced hyperglycemia: Blood sugars elevated since started steroids. - Continues on Insulin - Endocrinology follow-up scheduled for tomorrow, 05/20/2024 8) Thrombus: -CTA Neck 04/07: There is thrombus within the left jugular vein extending up to the level of the angle of the mandible. Presumably this is propagating from the chest. -Was transferred on heparin gtt - transitioned to Lovenox at discharge -CT Chest 04/18: RLL PE -BUE/BLE DVT US 04/20 - Positive for R arm DVTs - RIJ, innominate, subclavian, axillary, and brachial veins --OK to keep PICC line per discussion with vascular medicine on 04/20 Plan: -Continue Lovenox 1 mg/kg (70 mg) BID. Will plan to hold for platelets < 50k, which was reiterated with patient and her spouse today. -Per vascular patient will require AC at least 3-6 months duration of treatment, No current candidate for DOAC. May be transitioned outpatient potentially. follow-up scheduled for 06/18/2024. 8) Hip/bone pain: - Reporting w/ certain positioning, particularly sitting - Tylenol helps as she states she took a dose yesterday - Discharged with gabapentin for BLE pain noted during admission Plan: - Continue gabapentin & Zyrtec - Cautioned her to limit Tylenol to sporadic use only but to call if pain worsens to consider other pain modalities given transaminitis - Consider Pall Med consult if pain continues 9) Access: Ms. Meyer has a PICC. The site appears clean and line is functioning well. Dressing to be changed today in infusion center. All of Ms. Meyer's questions and those of her spouse have been acknowledged and answered to their satisfaction. Welcomed them to please call office with any questions or concerns. I spent a total of 49 minutes on the date of the service which included preparing to see the patient, [id number] patient care, obtaining and/or reviewing separately obtained history, performing a medically appropriate examination, counseling and educating the patient/family/caregiver, ordering medications, tests, or procedures, communicating with other HCPs (not separately reported), independently interpreting results (not separately reported), and communicating results to the patient/family/caregiver. Signed: Mague Fabian APRN.YEHUDA documented in this encounter [facility] 05-17-2024 Telephone encounter Note I do not see NEW CONSULT patients virtually. They are for my established patients only. She will need to keep IN OFFICE for consult visit. [facility] Work Phone: 05-17-2024 Miscellaneous Notes I do not see NEW CONSULT patients virtually. They are for my established patients only. She will need to keep IN OFFICE for consult visit. This pt is wondering if her appointment can be virtual instead of in person. Please advise. documented in this encounter [facility] 05-17-2024 Telephone encounter Note This pt is wondering if her appointment can be virtual instead of in person. Please advise. [facility] 04-30-2024 Telephone encounter Note Called patient to notify the breast pathology results are benign per Dr. Slade. Informed patient a 6 month follow up is recommended. Patient verbalized understanding. [facility] 04-30-2024 Miscellaneous Notes Called patient to notify the breast pathology results are benign per Dr. Slade. Informed patient a 6 month follow up is recommended. Patient verbalized understanding. documented in this encounter [facility] 04-28-[address] Siena chavarria was seeing in patient Thanks DV [facility] 04-17-2024 Note [facility] 04-17-2024 Note [facility] 04-16-2024 Note [facility] 04-16-2024 Note [facility] 04-16-2024 Note [facility] 04-16-2024 Note [facility] 04-15-2024 Note [facility] 04-15-2024 Note [facility] 04-15-2024 Note [facility] 04-15-2024 Note [facility] 04-15-2024 Note [facility] 04-15-2024 Note [facility] 04-14-2024 Note [facility] 04-14-2024 Note [facility] 04-14-2024 Note [facility] 04-14-2024 Note [facility] 04-14-2024 Note [facility] 04-13-2024 Note [facility] 04-13-2024 Note [facility] 04-13-2024 Note [facility] 04-13-2024 Note [facility] 04-13-2024 Note [facility] 04-13-2024 Note [facility] 04-13-2024 Note [facility] 04-13-2024 Note [facility] 04-12-2024 Note [facility] 04-12-2024 Note [facility] 04-12-2024 Note [facility] 04-12-2024 Note [facility] 04-12-2024 Note Spoke to Renetta floor RN pt was extubated yesterday alert and oriemted x 4 can sign her own consent heprin will be stopped 4 hours prior to procedure and PT,PTT,INR and CBC with DIFF drawn tomorrow [facility] 04-12-2024 Note [facility] 04-12-2024 Note [facility] 04-11-2024 Note [facility] 04-11-2024 Note [facility] 04-10-2024 Note [facility] 04-10-2024 Note [facility] 04-09-2024 Note [facility] 04-09-2024 Note [facility] 04-09-2024 Note [facility] 04-09-2024 Note [facility] 04-08-2024 Note [facility] 04-08-2024 Note [facility] 04-08-2024 Note [facility] 04-07-2024 Note [facility] 02-17-2024 History of Present illness Narrative Images from the original note were not included. Chief Complaint: Hernia History of Present Illness: Sonya Meyer is a 38 y.o. female to the office with abdominal wall hernia. She reports that she underwent open total abdominal hysterectomy with left salpingo-oophorectomy in 2021 for fibroids. She reports an abdominal bulge that she noticed at least 3 months ago. Initially it was not bothering her, however more recently it has become more painful. Every time she applies pressure to the area it is painful. 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 She denies any other past surgical history other than above. She denies any past medical history. She is not a diabetic she has not a smoker. 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 She is interested in getting the hernia fixed. She denies any obstructive symptoms. Her BMI is 37. She is interested in losing weight. HPI Review of Systems Constitutional: Negative for fever and chills. Respiratory: Negative for shortness of breath. Cardiovascular: Negative for chest pain and palpitations. Gastrointestinal: Positive for abdominal pain. Negative for nausea and vomiting. Hernia Genitourinary: Negative for dysuria and difficulty urinating. Skin: Negative for rash and wound. Allergic/Immunologic: Negative for immunocompromised state. Neurological: Negative for weakness and light-headedness. Hematological: Does not bruise/bleed easily. Psychiatric/Behavioral: Negative for behavioral problems and confusion. Past Medical History: Diagnosis Date Anemia related to uterin bleeding 08/09/22 iron infusions needed Fibroid Intramural fibroid Fibroid, uterine 2019 Palpitations related to low hgb 08/2022, last ekg 08/09/22 Past Surgical History: Procedure Laterality Date LEFT OOPHORECTOMY Left 09/04/2022 Performed by Vale Gibson MD at [facility] NO PAST SURGERIES SALPINGECTOMY Bilateral 09/04/2022 Performed by Vale Gibson MD at [facility] TOTAL ABDOMINAL HYSTERECTOMY N/A 09/04/2022 Performed by Vale Gibson MD at [facility] No Known Allergies No current outpatient medications on file. Social History Socioeconomic History Marital status: Spouse name: Not on file Number of children: Not on file Years of education: Not on file Highest education level: Not on file Occupational History Not on file Tobacco Use Smoking status: Never Smokeless tobacco: Never Vaping Use Vaping status: Never Used Substance and Sexual Activity Alcohol use: Not Currently Drug use: Never Sexual activity: Yes Partners: Male control/protection: Condom, Surgical Other Topics Concern Not on file Social History Narrative Not on file Social Determinants of Health Financial Resource Strain: Low Risk (08/09/2022) Overall Financial Resource Strain (CARDIA) Difficulty of Paying Living Expenses: Not hard at all Food Insecurity: Unknown (02/17/2024) Hunger Screening Food Insecurity - Worry: Never True Food Insecurity - Inability: Not on file Transportation Needs: No Transportation Needs (08/09/2022) PRAPARE - Transportation Lack of Transportation (Medical): No Lack of Transportation (Non-Medical): No Physical Activity: Inactive (08/09/2022) Exercise Vital Sign Days of Exercise per Week: 0 days Minutes of Exercise per Session: 0 min Stress: No Stress Concern Present (08/09/2022) [employer] - Occupational Stress Questionnaire Feeling of Stress : Not at all Social Connections: Moderately Integrated (08/09/2022) Social Connection and Isolation Panel [NHANES] Frequency of Communication with Friends and Family: More than three times a week Frequency of Social Gatherings with Friends and Family: Three times a week Attends Judaism Services: More than 4 times per year Active Member of Clubs or Organizations: No Attends Club or Organization Meetings: Never Marital Status: Interpersonal Safety: Not At Risk (08/09/2022) Humiliation, Afraid, Rape, and Kick questionnaire Fear of Current or Ex-Partner: No Emotionally Abused: No Physically Abused: No Sexually Abused: No Housing Instability: Not on file Family History Problem Relation Age of Onset Hypertension Mother Anxiety disorder Mother Anesthesia problems Father PONV Kidney disease Father Hypertension Father Diabetes Father Prostate cancer Father No Known Problems Maternal Grandmother No Known Problems Maternal Grandfather No Known Problems Paternal Grandmother No Known Problems Paternal Grandfather Breast cancer Neg Hx Ovarian cancer Neg Hx Colon cancer Neg Hx Uterine cancer Neg Hx Physical Exam Vitals reviewed. Constitutional: Appearance: Normal appearance. HENT: Head: Normocephalic and atraumatic. Eyes: Pupils: Pupils are equal, round, and reactive to light. Cardiovascular: Rate and Rhythm: Normal rate. Pulmonary: Effort: Pulmonary effort is normal. Abdominal: General: There is no distension. Palpations: Abdomen is soft. Tenderness: There is no abdominal tenderness. Comments: Incisional hernia, to the right of midline, fat containing, reducible Musculoskeletal: General: No swelling. Skin: General: Skin is warm and dry. Neurological: Mental Status: She is alert and oriented to person, place, and time. Mental status is at baseline. Psychiatric: Mood and Affect: Mood normal. Behavior: Behavior normal. Vital Signs: Blood pressure 143/85, pulse 92, height 152.4 cm (5'), weight 87.5 kg (192 lb 12.8 oz). Respiratory Source: No data recorded Admission Weight: Weight: 87.5 kg (192 lb 12.8 oz) Labs: Lab Results Component Value Date WBC 5.7 09/07/2022 HGB 10.2 (L) 09/07/2022 HCT 33.6 (L) 09/07/2022 MCV 76 (L) 09/07/2022 PLT 199 09/07/2022 Lab Results Component Value Date GLU 251 (H) 09/04/2022 CALCIUM 8.5 08/10/2022 K 4.0 08/10/2022 CO2 22 08/10/2022 CL 106 08/10/2022 BUN 11 08/10/2022 CREATININE 0.50 08/10/2022 No results found for: AMYLASE No results found for: LIPASE Lab Results Component Value Date ALT 27 08/10/2022 AST 35 08/10/2022 ALKPHOS 108 08/10/2022 No results found for: INR , PROTIME Imaging: CT abdomen/pelvis performed at [facility] on 02/03/2024 personally reviewed and interpreted. Large incisional hernia, fascial defect measures 5 cm wide, fat containing Assessment: Sonya Meyer is a 38 y.o.female with symptomatic large incisional hernia Incisional hernia, without obstruction or gangrene [K43.2] Plan: We discussed surgical repair of incisional hernia. I would like the patient's weight to be optimized prior to surgery. Patient is interested in weight loss and seems motivated. I will see her in the office in 3 months for follow up. Evaluation included: Preparing to see the patient (e.g., review of tests) Obtaining and/or reviewing separately obtained history Performing a medically appropriate examination and/or evaluation Counseling and educating the patient/family/caregiver Referring and communicating with other health group care worker Onesimo Mills MD [facility] General Surgery [place] documented in this encounter [facility] 02-03-2024 Note PROCEDURE: Axial helical 2.5 mm images through the abdomen and pelvis were performed without intravenous or oral contrast administration. Coronal reconstructed images were obtained. FINDINGS: No pelvic mass or abnormal fluid collections. No evidence of bowel obstruction or inflammation. Status post hysterectomy. Right adnexal 2 x 2 cm ovary, normal morphology and overall size. Normal kidneys, collecting systems, and bladder. Small to moderate volume of colon stool, no significant inflammation, mass, or bowel obstruction. Normal small bowel. No evidence of adhesions/obstruction. Large right periumbilical fat containing hernia, no bowel herniation. No rectus sheath hematoma Unremarkable lung bases, spleen, pancreas, gallbladder, biliary tree, and adrenal glands. Moderate to severe diffuse hepatic fatty filtration, upper limits normal volume. Normal splenic volume. IMPRESSION: 1. Fat containing right-sided periumbilical hernia, no bowel herniation or inflammation 2. No abnormal fluid collections status post hysterectomy. 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, unspecified site, extranodal and solid organ sites Immunocompromised (HCC) Unspecified immunity deficiency Transaminitis Nonspecific elevation of levels of transaminase or lactic acid dehydrogenase (LDH) Bone pain Disorder of bone and cartilage, unspecified Personal history of DVT (deep vein thrombosis) Personal history of venous thrombosis and embolism History of tracheoesophageal fistula Other specified conditions influencing health status documented in this encounter [facility] note* Diagnosis Surgery follow-up- Primary Follow-up examination, following unspecified surgery [facility] Diagnosis Controlled steroid-induced diabetes mellitus (HCC)- Primary Secondary diabetes mellitus without mention of complication, not stated as uncontrolled, or unspecified documented in this encounter [facility] note* Diagnosis Hypokalemia- Primary Hypopotassemia TLL (T-cell lymphoblastic lymphoma) (HCC) Lymphosarcoma, unspecified site, 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 lymphoma) (HCC) Lymphosarcoma, unspecified site, 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 lymphoma) (HCC) Lymphosarcoma, unspecified site, 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 lymphoma) (HCC) Lymphosarcoma, unspecified site, extranodal and solid organ sites documented in this encounter [facility] note* Diagnosis Bone pain- Primary Disorder of bone and cartilage, unspecified TLL (T-cell lymphoblastic lymphoma) (HCC) Lymphosarcoma, unspecified site, 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 lymphoma) (HCC) Lymphosarcoma, unspecified site, 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 lymphoma) (HCC) Lymphosarcoma, unspecified site, 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 lymphoma) (HCC) Lymphosarcoma, unspecified site, extranodal and solid organ sites documented in this encounter [facility] note* Diagnosis TLL (T-cell lymphoblastic lymphoma) (HCC) Lymphosarcoma, unspecified site, 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 lymphoma) (HCC) Lymphosarcoma, unspecified site, 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 lymphoma) (HCC) Lymphosarcoma, unspecified site, 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 lymphoma) (HCC) Lymphosarcoma, unspecified site, 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 lymphoma) (HCC) Lymphosarcoma, unspecified site, extranodal and solid organ sites documented in this encounter [facility] note* Diagnosis TLL (T-cell lymphoblastic lymphoma) ([facility]) Lymphosarcoma, unspecified site, 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 lymphoma) (HCC) Lymphosarcoma, unspecified site, 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 lymphoma) ([facility]) Lymphosarcoma, unspecified site, 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 lymphoma) (HCC) Lymphosarcoma, unspecified site, 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 lymphoma) ([facility]) Lymphosarcoma, unspecified site, extranodal and solid organ sites documented in this encounter [facility] note* Diagnosis TLL (T-cell lymphoblastic lymphoma) ([facility])- Primary Lymphosarcoma, unspecified site, 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 lymphoma) ([facility]) Lymphosarcoma, unspecified site, 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 lymphoma) (HCC) Lymphosarcoma, unspecified site, 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 lymphoma) ([facility]) Lymphosarcoma, unspecified site, 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 lymphoma) ([facility]) Lymphosarcoma, unspecified site, extranodal and solid organ sites documented in this encounter [facility] note* Diagnosis 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[facility])- Primary TLL (T-cell lymphoblastic lymphoma) ([facility]) Lymphosarcoma, unspecified site, 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 lymphoma) (HCC) Lymphosarcoma, unspecified site, 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 lymphoma) ([facility]) Lymphosarcoma, unspecified site, 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 lymphoma) ([facility]) Lymphosarcoma, unspecified site, 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 lymphoma) (HCC) Lymphosarcoma, unspecified site, extranodal and solid organ sites documented in this encounter [facility] note* Diagnosis 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 TLL (T-cell lymphoblastic lymphoma) (HCC) Lymphosarcoma, unspecified site, 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 lymphoma) (HCC) Lymphosarcoma, unspecified site, 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 lymphoma) (HCC) Lymphosarcoma, unspecified site, extranodal and solid organ sites documented in this encounter [facility] note* Diagnosis On tube feeding diet- Primary TLL (T-cell lymphoblastic lymphoma) (HCC) Lymphosarcoma, unspecified site, 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 lymphoma) (HCC) Lymphosarcoma, unspecified site, 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 lymphoma) (HCC) Lymphosarcoma, unspecified site, extranodal and solid organ sites documented in this encounter [facility] note* Diagnosis 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, unspecified site, 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 lymphoma) (HCC) Lymphosarcoma, unspecified site, 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 lymphoma) (HCC) Lymphosarcoma, unspecified site, 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 lymphoma) (HCC) Lymphosarcoma, unspecified site, 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 lymphoma) (HCC) Lymphosarcoma, unspecified site, extranodal and solid organ sites documented in this encounter [facility] note* Diagnosis Anticoagulation management encounter- Primary Encounter for therapeutic drug monitoring TLL (T-cell lymphoblastic lymphoma) (HCC) Lymphosarcoma, unspecified site, extranodal and solid organ sites Pulmonary embolism, unspecified chronicity, unspecified pulmonary embolism type, unspecified whether acute cor pulmonale present (HCC) Personal history of DVT (deep vein thrombosis) Personal history of venous thrombosis and embolism TLL (T-cell lymphoblastic lymphoma) (HCC) Lymphosarcoma, unspecified site, 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 lymphoma) (HCC) Lymphosarcoma, unspecified site, 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 lymphoma) (HCC) Lymphosarcoma, unspecified site, extranodal and solid organ sites documented in this encounter [facility] note* Diagnosis 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, unspecified site, 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) Bone marrow replaced by transplant Need for prophylactic immunotherapy Need for pneumocystis prophylaxis Need for other prophylactic chemotherapy TLL (T-cell lymphoblastic lymphoma) (HCC) Lymphosarcoma, unspecified site, 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 lymphoma) (HCC) Lymphosarcoma, unspecified site, 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 lymphoma) (HCC) Lymphosarcoma, unspecified site, extranodal and solid organ sites documented in this encounter [facility] note* Diagnosis 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, unspecified site, 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 lymphoma) (HCC) Lymphosarcoma, unspecified site, 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 lymphoma) (HCC) Lymphosarcoma, unspecified site, extranodal and solid organ sites documented in this encounter [facility] note* Diagnosis 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 TLL (T-cell lymphoblastic lymphoma) (HCC) Lymphosarcoma, unspecified site, 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 lymphoma) (HCC) Lymphosarcoma, unspecified site, extranodal and solid organ sites documented in this encounter [facility] note* Diagnosis 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 TLL (T-cell lymphoblastic lymphoma) (HCC) Lymphosarcoma, unspecified site, 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 lymphoma) (HCC) Lymphosarcoma, unspecified site, extranodal and solid organ sites documented in this encounter [facility] note* Diagnosis 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 On tube feeding diet Thrombus Embolism and thrombosis of unspecified site Immunocompromised (HCC) Unspecified immunity deficiency Transaminitis Nonspecific elevation of levels of transaminase or lactic acid dehydrogenase (LDH) Chemotherapy-induced peripheral neuropathy (HCC) Encounter for antineoplastic chemotherapy TLL (T-cell lymphoblastic lymphoma) (HCC) Lymphosarcoma, unspecified site, 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 lymphoma) (HCC) Lymphosarcoma, unspecified site, extranodal and solid organ sites documented in this encounter [facility] note* Diagnosis 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 Hepatitis Hepatitis, unspecified TLL (T-cell lymphoblastic lymphoma) (HCC) Lymphosarcoma, unspecified site, 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 lymphoma) (HCC) Lymphosarcoma, unspecified site, extranodal and solid organ sites documented in this encounter [facility] note* Diagnosis 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, unspecified site, extranodal and solid organ sites Transaminitis Nonspecific elevation of levels of transaminase or lactic acid dehydrogenase (LDH) Thrombus Embolism and thrombosis of unspecified site TLL (T-cell lymphoblastic lymphoma) (HCC) Lymphosarcoma, unspecified site, 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 lymphoma) (HCC) Lymphosarcoma, unspecified site, extranodal and solid organ sites documented in this encounter [facility] note* Diagnosis 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 TLL (T-cell lymphoblastic lymphoma) (HCC) Lymphosarcoma, unspecified site, 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 lymphoma) (HCC) Lymphosarcoma, unspecified site, extranodal and solid organ sites documented in this encounter [facility] note* Diagnosis Primary hypertension (CMS/HCC)- Primary Unspecified essential hypertension [facility] Diagnosis Controlled steroid-induced diabetes mellitus (HCC)- Primary Secondary diabetes mellitus without mention of complication, not stated as uncontrolled, or unspecified TLL (T-cell lymphoblastic lymphoma) (HCC) Lymphosarcoma, unspecified site, 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 lymphoma) (HCC) Lymphosarcoma, unspecified site, extranodal and solid organ sites documented in this encounter [facility] note* Diagnosis 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 TLL (T-cell lymphoblastic lymphoma) (HCC) Lymphosarcoma, unspecified site, extranodal and solid organ sites documented in this encounter [facility] note* Diagnosis TLL (T-cell lymphoblastic lymphoma) (HCC) Lymphosarcoma, unspecified site, 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 lymphoma) (HCC) Lymphosarcoma, unspecified site, extranodal and solid organ sites documented in this encounter [facility] note* Diagnosis 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 TLL (T-cell lymphoblastic lymphoma) (HCC) Lymphosarcoma, unspecified site, 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 lymphoma) (HCC) Lymphosarcoma, unspecified site, extranodal and solid organ sites documented in this encounter [facility] note* Diagnosis 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, unspecified site, 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 lymphoma) (HCC) Lymphosarcoma, unspecified site, extranodal and solid organ sites documented in this encounter [facility] note* Diagnosis 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 TLL (T-cell lymphoblastic lymphoma) (HCC) Lymphosarcoma, unspecified site, extranodal and solid organ sites documented in this encounter [facility] note* Diagnosis 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 TLL (T-cell lymphoblastic lymphoma) (HCC) Lymphosarcoma, unspecified site, 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 lymphoma) (HCC) Lymphosarcoma, unspecified site, extranodal and solid organ sites documented in this encounter [facility] note* Diagnosis Type 2 diabetes mellitus with hyperglycemia, with long-term current use of insulin (HCC)- Primary Controlled steroid-induced diabetes mellitus (HCC) Secondary diabetes mellitus without mention of complication, not stated as uncontrolled, or unspecified TLL (T-cell lymphoblastic lymphoma) (HCC) Lymphosarcoma, unspecified site, extranodal and solid organ sites 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 Diagnosis 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 TLL (T-cell lymphoblastic lymphoma) (HCC) Lymphosarcoma, unspecified site, extranodal and solid organ sites [facility] Diagnosis 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 [facility] Diagnosis Primary hypertension (CMS/HCC) Unspecified essential 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HCC) [facility] Diagnosis Type 2 diabetes mellitus without complication, with long-term current use of insulin (HCC)- Primary Type 2 diabetes mellitus with hyperglycemia, with long-term current use of insulin (HCC) [facility] Diagnosis On tube feeding diet [facility] Diagnosis TLL (T-cell lymphoblastic lymphoma) (HCC) Lymphosarcoma, unspecified site, extranodal and solid organ sites [facility] Diagnosis Status post bone marrow transplant (HCC)- Primary Bone marrow replaced by transplant TLL (T-cell lymphoblastic lymphoma) (HCC) Lymphosarcoma, unspecified site, extranodal and solid organ sites Immunocompromised patient (HCC) Unspecified immunity deficiency Need for pneumocystis prophylaxis Need for other prophylactic chemotherapy [facility] Diagnosis TLL (T-cell lymphoblastic lymphoma) (HCC) Lymphosarcoma, unspecified site, extranodal and solid organ sites [facility] Diagnosis On tube feeding diet [facility] Diagnosis 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HCC) [facility] Diagnosis 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 TLL (T-cell lymphoblastic lymphoma) (HCC) Lymphosarcoma, unspecified site, 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 lymphoma) (HCC) Lymphosarcoma, unspecified site, 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 lymphoma) (HCC) Lymphosarcoma, unspecified site, extranodal and solid organ sites documented in this encounter [facility] note* Diagnosis 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HCC) TLL (T-cell lymphoblastic lymphoma) (HCC) Lymphosarcoma, unspecified site, 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 lymphoma) (HCC) Lymphosarcoma, unspecified site, extranodal and solid organ sites documented in this encounter [facility] note* Diagnosis Palliative care by specialist- Primary 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HCC) Neoplasm related pain Neoplasm related pain (acute) (chronic) On tube feeding diet Anxiety about health TLL (T-cell lymphoblastic lymphoma) (HCC) Lymphosarcoma, unspecified site, 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 lymphoma) (HCC) Lymphosarcoma, unspecified site, extranodal and solid organ sites documented in this encounter [facility] note* Diagnosis 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HCC) TLL (T-cell lymphoblastic lymphoma) (HCC) Lymphosarcoma, unspecified site, 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 lymphoma) (HCC) Lymphosarcoma, unspecified site, extranodal and solid organ sites [facility] Diagnosis 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HCC) TLL (T-cell lymphoblastic lymphoma) (HCC) Lymphosarcoma, unspecified site, 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 lymphoma) (HCC) Lymphosarcoma, unspecified site, extranodal and solid organ sites [facility] Diagnosis 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HCC) TLL (T-cell lymphoblastic lymphoma) (HCC) Lymphosarcoma, unspecified site, 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 lymphoma) (HCC) Lymphosarcoma, unspecified site, extranodal and solid organ sites [facility] this 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* Diagnosis Palliative care by specialist- Primary 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HCC) Chronic cough Cough Neoplasm related pain Neoplasm related pain (acute) (chronic) Anxiety about health On tube feeding diet Nausea Nausea alone TLL (T-cell lymphoblastic lymphoma) (HCC) Lymphosarcoma, unspecified site, extranodal and solid organ sites 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* Diagnosis 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, unspecified site, 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 lymphoma) (HCC) Lymphosarcoma, unspecified site, extranodal and solid organ sites documented [facility] this [facility]* Diagnosis Acute lymphoblastic leukemia (ALL) in relapse (HCC)- Primary TLL (T-cell lymphoblastic lymphoma) (HCC) Lymphosarcoma, unspecified site, extranodal and solid organ sites documented [facility] this [facility]* Diagnosis TLL (T-cell lymphoblastic lymphoma) (HCC) Lymphosarcoma, unspecified site, 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 lymphoma) (HCC) Lymphosarcoma, unspecified site, extranodal and solid organ sites documented [facility] this [facility]* Diagnosis TLL (T-cell lymphoblastic lymphoma) (HCC) Lymphosarcoma, unspecified site, 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 lymphoma) (HCC) Lymphosarcoma, unspecified site, extranodal and solid organ sites documented [facility] this [facility]* Diagnosis 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HCC) TLL (T-cell lymphoblastic lymphoma) (HCC) Lymphosarcoma, unspecified site, extranodal and solid organ sites documented [facility] this [facility]* Diagnosis 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HCC) TLL (T-cell lymphoblastic lymphoma) (HCC) Lymphosarcoma, unspecified site, extranodal and solid organ sites documented [facility] this [facility]* Diagnosis 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HCC)- Primary Other amyloidosis 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HCC) [facility] this 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) [facility] Diagnosis 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) [facility] Diagnosis Type 2 diabetes mellitus with hyperglycemia, with long-term current use of insulin (HCC)- Primary Type 2 diabetes mellitus without complication, with long-term current use of insulin (HCC) 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HCC) [facility] Palliative care by specialist- Primary Neoplasm related pain Neoplasm related pain (acute) (chronic) 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HCC) Anxiety about health Anorexia Nausea Nausea alone Chronic cough Cough On tube feeding diet 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HCC) [facility] Diagnosis Status post bone marrow transplant (HCC)- Primary Bone marrow replaced by transplant TLL (T-cell lymphoblastic lymphoma) (HCC) Lymphosarcoma, unspecified site, extranodal and solid organ sites Immunocompromised patient (HCC) Unspecified immunity deficiency Need for pneumocystis prophylaxis Need for other prophylactic chemotherapy [facility] Diagnosis 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 Mediastinal mass Swelling, mass, or lump in chest Severe protein-calorie malnutrition (HCC) Other severe protein-calorie malnutrition [facility] Diagnosis 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HCC) [facility] Diagnosis TLL (T-cell lymphoblastic lymphoma) (HCC) Lymphosarcoma, unspecified site, extranodal and solid organ sites [facility] Diagnosis 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 [facility] Diagnosis ALL (acute lymphoblastic leukemia of ) (HCC)- Primary Acute lymphoid leukemia, without mention of having achieved remission [facility] Diagnosis 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 Mediastinal mass Swelling, mass, or lump in chest Severe protein-calorie malnutrition (HCC) Other severe protein-calorie malnutrition [facility] Diagnosis 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, unspecified site, extranodal and solid organ sites Anticoagulation management encounter Encounter for therapeutic drug monitoring Personal history of DVT (deep vein thrombosis) Personal history of venous thrombosis and embolism Pulmonary embolism, unspecified chronicity, unspecified pulmonary embolism type, unspecified whether acute cor pulmonale present (HCC) 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) [facility] Diagnosis 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) [facility] Diagnosis Status post bone marrow transplant (HCC)- Primary Bone marrow replaced by transplant Immunocompromised patient (HCC) Unspecified immunity deficiency Need for pneumocystis prophylaxis Need for other prophylactic chemotherapy 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) [facility] Diagnosis 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) [facility] Diagnosis 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 [place] [id number] Referral ID Status Reason Start Date Expiration Date Visits Requested Visits Authorized [id number] Authorized PCP Requested Referral 06/18/2025 12/16/2025 1 1 [facility] for visit Narrative* Diagnostic Procedure Only (Routine) - Closed Specialty Diagnoses / Procedures Referred By Contac t Referred To Contact [facility] Diagnoses 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HCC) Procedures NM PET/CT WHOLE BODY SUBSEQUENT PET IMAGING FOR CT ATTENUATION WHOLE BODY [place] [address] [place] [id number] [facility] [address] [place] [address] Referral ID Status Reason Start Date Expiration Date V isits Requested Visits Authorized [id number] Closed Auto-Generate d Referral 08/27/2024 10/05/2024 1 1 [facility] for visit Narrative* Outpatient Procedure (Routine) - Authorized Specialty Diagnoses / Procedures Referred By Contac t Referred To Contact [facility] Diagnoses 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HCC) Procedures ECHO ECHO TTHRC R-T 2D W/WOM-MODE COMPL SPEC&COLR D Breanna Roberts MD [address] [id number] [facility] [address] [place] [id number] Referral ID Status Reason Start Date Expiration Date Visits Requested Visits Authorized [id number] Authorized Auto-Generat ed Referral 09/22/2025 1 1 [facility] Summary Purpose Family History No Family History Records FoundNo Family History Records FoundNo Family History Records FoundNo Family History Records FoundNo Family History Records FoundNo Family History Records FoundNo Family History Records FoundNo Family History Records FoundNo Family History Records Found Advance Directives Documents on File Type Date Recorded Patient Nutrition Aide Expl anation Advance Directive(s) 04/18/2024 8:15 AM Date Activated Date Inactivated Comments 04/21/2024 10:53 PM Question Answer Comments Full Code Order Discussed With: Patient Documents on File Type Date Recorded Patient Nutrition Aide Expl anation Advance Directive(s) 04/18/2024 8:15 AM Date Activated Date Inactivated Comments 04/21/2024 10:53 PM 05/17/2024 8:39 PM Question Answer Comments Full Code Order Discussed With: Patient Date Activated Date Inactivated Comments 04/21/2024 10:53 PM 05/17/2024 8:39 PM Date Activated Date Inactivated Comments 09/24/2024 7:35 PM Date Activated Date Inactivated Comments 04/21/2024 10:53 PM 05/17/2024 8:39 PM Question Answer Comments Full Code Order Discussed With: Patient Date Activated Date Inactivated Comments 09/24/2024 7:35 PM Date Activated Date Inactivated Comments 04/21/2024 10:53 PM 05/17/2024 8:39 PM Question Answer Comments Full Code Order Discussed With: Patient Date Activated Date Inactivated Comments 09/28/2024 9:27 AM Question Answer Comments DNR Order Discussed With: Patient and Decision S urrogate Maker Surrogate Decision Maker Relationship: Spouse Date Activated Date Inactivated Comments 09/24/2024 7:35 PM 09/28/2024 9:27 AM Date Activated Date Inactivated Comments 04/21/2024 10:53 PM 05/17/2024 8:39 PM Question Answer Comments Full Code Order Discussed With: Patient Date Activated Date Inactivated Comments 09/28/2024 9:27 AM Question Answer Comments DNR Order Discussed With: Patient and Decision S urrogate Maker Surrogate Decision Maker Relationship: Spouse Date Activated Date Inactivated Comments 09/24/2024 7:35 PM 09/28/2024 9:27 AM Date Activated Date Inactivated Comments 04/21/2024 10:53 PM 05/17/2024 8:39 PM Question Answer Comments Full Code Order Discussed With: Patient Date Activated Date Inactivated Comments 10/07/2024 2:02 PM Question Answer Comments DNR Order Discussed With: Patient Date Activated Date Inactivated Comments 10/07/2024 11:49 AM 10/07/2024 2:02 PM Question Answer Comments Order Discussed With: Patient Date Activated Date Inactivated Comments 09/28/2024 9:27 AM 10/07/2024 11:49 AM Question Answer Comments DNR Order Discussed With: Patient and Decision S urrogate Maker Surrogate Decision Maker Relationship: Spouse Date Activated Date Inactivated Comments 09/24/2024 7:35 PM 09/28/2024 9:27 AM Question Answer Comments Full Code Order Discussed With: Patient Date Activated Date Inactivated Comments 04/21/2024 10:53 PM 05/17/2024 8:39 PM Question Answer Comments Full Code Order Discussed With: Patient Date Activated Date Inactivated Comments 10/07/2024 2:02 PM 10/11/2024 10:03 PM Date Activated Date Inactivated Comments 10/07/2024 2:02 PM 10/11/2024 10:03 PM Question Answer Comments DNR Order Discussed With: Patient Date Activated Date Inactivated Comments 10/07/2024 11:49 AM 10/07/2024 2:02 PM Question Answer Comments Order Discussed With: Patient Date Activated Date Inactivated Comments 09/28/2024 9:27 AM 10/07/2024 11:49 AM Question Answer Comments DNR Order Discussed With: Patient and Decision S urrogate Maker Surrogate Decision Maker Relationship: Spouse Date Activated Date Inactivated Comments 09/24/2024 7:35 PM 09/28/2024 9:27 AM Question Answer Comments Full Code Order Discussed With: Patient Date Activated Date Inactivated Comments 04/21/2024 10:53 PM 05/17/2024 8:39 PM Question Answer Comments Full Code Order Discussed With: Patient Documents on File Type Date Recorded Patient Nutrition Aide Expl anation Durable Power of Shelter Supervisor 09/12/2022 8:35 AM Date Activated Date Inactivated Comments 08/09/2022 7:20 PM 08/12/2022 5:38 PM Additional Source Comments INFORMATION SOURCE (unrecogn ized section and content) DATE CREATED AUTHOR 08/17/2022 [facility] Special[facility] DATE CREATED AUTHOR AUTHOR'S ORGANIZ ATION 02/19/2024 [facility] DATE CREATED AUTHOR AUTHOR'S ORGANIZ ATION 04/01/2024 [facility] DATE CREATED AUTHOR AUTHOR'S ORGANIZ ATION 06/20/2024 [facility] DATE CREATED AUTHOR AUTHOR'S ORGANIZ ATION 08/10/2024 [facility] Specialists EPIC DATE CREATED AUTHOR AUTHOR'S ORGANIZ ATION 09/28/2024 [facility] DATE CREATED AUTHOR AUTHOR'S ORGANIZ ATION 10/24/2024 [facility] DATE CREATED AUTHOR AUTHOR'S ORGANIZ ATION 11/06/2024 [facility] DATE CREATED AUTHOR AUTHOR'S ORGANIZ ATION 01/03/2025 [facility] Source Comments (unrecognize d section and content) In the event this informatio n is protected by the Federal Confidentiality of Alcohol and Drug Abuse Patient Records regulations: The Federal rules restrict any use of the information to criminally investigate or prosecute any alcohol or drug abuse patient.[facility] the event this information is protected by the Federal Confidentiality of Alcohol and Drug Abuse Patient Records regulations: The Federal rules restrict any use of the information to criminally investigate or prosecute any alcohol or drug abuse patient.[facility] the event this information is protected by the Federal Confidentiality of Alcohol and Drug Abuse Patient Records regulations: The Federal rules restrict any use of the information to criminally investigate or prosecute any alcohol or drug abuse patient.[facility] HospitalIn the event this information is protected by the Federal Confidentiality of Alcohol and Drug Abuse Patient Records regulations: The Federal rules restrict any use of the information to criminally investigate or prosecute any alcohol or drug abuse patient.[facility] HospitalIn the event this information is protected by the Federal Confidentiality of Alcohol and Drug Abuse Patient Records regulations: The Federal rules restrict any use of the information to criminally investigate or prosecute any alcohol or drug abuse patient.[facility] HospitalIn the event this information is protected by the Federal Confidentiality of Alcohol and Drug Abuse Patient Records regulations: The Federal rules restrict any use of the information to criminally investigate or prosecute any alcohol or drug abuse patient.[facility] HospitalIn the event this information is protected by the Federal Confidentiality of Alcohol and Drug Abuse Patient Records regulations: The Federal rules restrict any use of the information to criminally investigate or prosecute any alcohol or drug abuse patient.[facility] HospitalIn the event this information is protected by the Federal Confidentiality of Alcohol and Drug Abuse Patient Records regulations: The Federal rules restrict any use of the information to criminally investigate or prosecute any alcohol or drug abuse patient.[facility] HospitalIn the event this information is protected by the Federal Confidentiality of Alcohol and Drug Abuse Patient Records regulations: The Federal rules restrict any use of the information to criminally investigate or prosecute any alcohol or drug abuse patient.[facility] HospitalIn the event this information is protected by the Federal Confidentiality of Alcohol and Drug Abuse Patient Records regulations: The Federal rules restrict any use of the information to criminally investigate or prosecute any alcohol or drug abuse patient.[facility] HospitalIn the event this information is protected by the Federal Confidentiality of Alcohol and Drug Abuse Patient Records regulations: The Federal rules restrict any use of the information to criminally investigate or prosecute any alcohol or drug abuse patient.[facility] HospitalIn the event this information is protected by the Federal Confidentiality of Alcohol and Drug Abuse Patient Records regulations: The Federal rules restrict any use of the information to criminally investigate or prosecute any alcohol or drug abuse patient.[facility] HospitalIn the event this information is protected by the Federal Confidentiality of Alcohol and Drug Abuse Patient Records regulations: The Federal rules restrict any use of the information to criminally investigate or prosecute any alcohol or drug abuse patient.[facility] HospitalIn the event this information is protected by the Federal Confidentiality of Alcohol and Drug Abuse Patient Records regulations: The Federal rules restrict any use of the information to criminally investigate or prosecute any alcohol or drug abuse patient.[facility] HospitalIn the event this information is protected by the Federal Confidentiality of Alcohol and Drug Abuse Patient Records regulations: The Federal rules restrict any use of the information to criminally investigate or prosecute any alcohol or drug abuse patient.[facility] HospitalIn the event this information is protected by the Federal Confidentiality of Alcohol and Drug Abuse Patient Records regulations: The Federal rules restrict any use of the information to criminally investigate or prosecute any alcohol or drug abuse patient.[facility] HospitalIn the event this information is protected by the Federal Confidentiality of Alcohol and Drug Abuse Patient Records regulations: The Federal rules restrict any use of the information to criminally investigate or prosecute any alcohol or drug abuse patient.[facility] HospitalIn the event this information is protected by the Federal Confidentiality of Alcohol and Drug Abuse Patient Records regulations: The Federal rules restrict any use of the information to criminally investigate or prosecute any alcohol or drug abuse patient.[facility] HospitalIn the event this information is protected by the Federal Confidentiality of Alcohol and Drug Abuse Patient Records regulations: The Federal rules restrict any use of the information to criminally investigate or prosecute any alcohol or drug abuse patient.[facility] HospitalIn the event this information is protected by the Federal Confidentiality of Alcohol and Drug Abuse Patient Records regulations: The Federal rules restrict any use of the information to criminally investigate or prosecute any alcohol or drug abuse patient.[facility] HospitalIn the event this information is protected by the Federal Confidentiality of Alcohol and Drug Abuse Patient Records regulations: The Federal rules restrict any use of the information to criminally investigate or prosecute any alcohol or drug abuse patient.[facility] HospitalIn the event this information is protected by the Federal Confidentiality of Alcohol and Drug Abuse Patient Records regulations: The Federal rules restrict any use of the information to criminally investigate or prosecute any alcohol or drug abuse patient.[facility] HospitalIn the event this information is protected by the Federal Confidentiality of Alcohol and Drug Abuse Patient Records regulations: The Federal rules restrict any use of the information to criminally investigate or prosecute any alcohol or drug abuse patient.[facility] HospitalIn the event this information is protected by the Federal Confidentiality of Alcohol and Drug Abuse Patient Records regulations: The Federal rules restrict any use of the information to criminally investigate or prosecute any alcohol or drug abuse patient.[facility] HospitalIn the event this information is protected by the Federal Confidentiality of Alcohol and Drug Abuse Patient Records regulations: The Federal rules restrict any use of the information to criminally investigate or prosecute any alcohol or drug abuse patient.[facility] HospitalIn the event this information is protected by the Federal Confidentiality of Alcohol and Drug Abuse Patient Records regulations: The Federal rules restrict any use of the information to criminally investigate or prosecute any alcohol or drug abuse patient.[facility] HospitalIn the event this information is protected by the Federal Confidentiality of Alcohol and Drug Abuse Patient Records regulations: The Federal rules restrict any use of the information to criminally investigate or prosecute any alcohol or drug abuse patient.[facility] HospitalIn the event this information is protected by the Federal Confidentiality of Alcohol and Drug Abuse Patient Records regulations: The Federal rules restrict any use of the information to criminally investigate or prosecute any alcohol or drug abuse patient.[facility] HospitalIn the event this information is protected by the Federal Confidentiality of Alcohol and Drug Abuse Patient Records regulations: The Federal rules restrict any use of the information to criminally investigate or prosecute any alcohol or drug abuse patient.[facility] HospitalIn the event this information is protected by the Federal Confidentiality of Alcohol and Drug Abuse Patient Records regulations: The Federal rules restrict any use of the information to criminally investigate or prosecute any alcohol or drug abuse patient.[facility] HospitalIn the event this information is protected by the Federal Confidentiality of Alcohol and Drug Abuse Patient Records regulations: The Federal rules restrict any use of the information to criminally investigate or prosecute any alcohol or drug abuse patient.[facility] HospitalIn the event this information is protected by the Federal Confidentiality of Alcohol and Drug Abuse Patient Records regulations: The Federal rules restrict any use of the information to criminally investigate or prosecute any alcohol or drug abuse patient.[facility] HospitalIn the event this information is protected by the Federal Confidentiality of Alcohol and Drug Abuse Patient Records regulations: The Federal rules restrict any use of the information to criminally investigate or prosecute any alcohol or drug abuse patient.[facility] HospitalIn the event this information is protected by the Federal Confidentiality of Alcohol and Drug Abuse Patient Records regulations: The Federal rules restrict any use of the information to criminally investigate or prosecute any alcohol or drug abuse patient.[facility] HospitalIn the event this information is protected by the Federal Confidentiality of Alcohol and Drug Abuse Patient Records regulations: The Federal rules restrict any use of the information to criminally investigate or prosecute any alcohol or drug abuse patient.[facility] HospitalIn the event this information is protected by the Federal Confidentiality of Alcohol and Drug Abuse Patient Records regulations: The Federal rules restrict any use of the information to criminally investigate or prosecute any alcohol or drug abuse patient.[facility] HospitalIn the event this information is protected by the Federal Confidentiality of Alcohol and Drug Abuse Patient Records regulations: The Federal rules restrict any use of the information to criminally investigate or prosecute any alcohol or drug abuse patient.[facility] HospitalIn the event this information is protected by the Federal Confidentiality of Alcohol and Drug Abuse Patient Records regulations: The Federal rules restrict any use of the information to criminally investigate or prosecute any alcohol or drug abuse patient.[facility] HospitalIn the event this information is protected by the Federal Confidentiality of Alcohol and Drug Abuse Patient Records regulations: The Federal rules restrict any use of the information to criminally investigate or prosecute any alcohol or drug abuse patient.[facility] HospitalIn the event this information is protected by the Federal Confidentiality of Alcohol and Drug Abuse Patient Records regulations: The Federal rules restrict any use of the information to criminally investigate or prosecute any alcohol or drug abuse patient.[facility] HospitalIn the event this information is protected by the Federal Confidentiality of Alcohol and Drug Abuse Patient Records regulations: The Federal rules restrict any use of the information to criminally investigate or prosecute any alcohol or drug abuse patient.[facility] HospitalIn the event this information is protected by the Federal Confidentiality of Alcohol and Drug Abuse Patient Records regulations: The Federal rules restrict any use of the information to criminally investigate or prosecute any alcohol or drug abuse patient.[facility] HospitalIn the event this information is protected by the Federal Confidentiality of Alcohol and Drug Abuse Patient Records regulations: The Federal rules restrict any use of the information to criminally investigate or prosecute any alcohol or drug abuse patient.[facility] HospitalIn the event this information is protected by the Federal Confidentiality of Alcohol and Drug Abuse Patient Records regulations: The Federal rules restrict any use of the information to criminally investigate or prosecute any alcohol or drug abuse patient.[facility] HospitalIn the event this information is protected by the Federal Confidentiality of Alcohol and Drug Abuse Patient Records regulations: The Federal rules restrict any use of the information to criminally investigate or prosecute any alcohol or drug abuse patient.[facility] HospitalIn the event this information is protected by the Federal Confidentiality of Alcohol and Drug Abuse Patient Records regulations: The Federal rules restrict any use of the information to criminally investigate or prosecute any alcohol or drug abuse patient.[facility] HospitalIn the event this information is protected by the Federal Confidentiality of Alcohol and Drug Abuse Patient Records regulations: The Federal rules restrict any use of the information to criminally investigate or prosecute any alcohol or drug abuse patient.[facility] HospitalIn the event this information is protected by the Federal Confidentiality of Alcohol and Drug Abuse Patient Records regulations: The Federal rules restrict any use of the information to criminally investigate or prosecute any alcohol or drug abuse patient.[facility] HospitalIn the event this information is protected by the Federal Confidentiality of Alcohol and Drug Abuse Patient Records regulations: The Federal rules restrict any use of the information to criminally investigate or prosecute any alcohol or drug abuse patient.[facility] HospitalIn the event this information is protected by the Federal Confidentiality of Alcohol and Drug Abuse Patient Records regulations: The Federal rules restrict any use of the information to criminally investigate or prosecute any alcohol or drug abuse patient.[facility] HospitalIn the event this information is protected by the Federal Confidentiality of Alcohol and Drug Abuse Patient Records regulations: The Federal rules restrict any use of the information to criminally investigate or prosecute any alcohol or drug abuse patient.[facility] HospitalIn the event this information is protected by the Federal Confidentiality of Alcohol and Drug Abuse Patient Records regulations: The Federal rules restrict any use of the information to criminally investigate or prosecute any alcohol or drug abuse patient.[facility] HospitalIn the event this information is protected by the Federal Confidentiality of Alcohol and Drug Abuse Patient Records regulations: The Federal rules restrict any use of the information to criminally investigate or prosecute any alcohol or drug abuse patient.[facility] HospitalIn the event this information is protected by the Federal Confidentiality of Alcohol and Drug Abuse Patient Records regulations: The Federal rules restrict any use of the information to criminally investigate or prosecute any alcohol or drug abuse patient.[facility] HospitalIn the event this information is protected by the Federal Confidentiality of Alcohol and Drug Abuse Patient Records regulations: The Federal rules restrict any use of the information to criminally investigate or prosecute any alcohol or drug abuse patient.[facility] HospitalIn the event this information is protected by the Federal Confidentiality of Alcohol and Drug Abuse Patient Records regulations: The Federal rules restrict any use of the information to criminally investigate or prosecute any alcohol or drug abuse patient.[facility] HospitalIn the event this information is protected by the Federal Confidentiality of Alcohol and Drug Abuse Patient Records regulations: The Federal rules restrict any use of the information to criminally investigate or prosecute any alcohol or drug abuse patient.[facility] HospitalIn the event this information is protected by the Federal Confidentiality of Alcohol and Drug Abuse Patient Records regulations: The Federal rules restrict any use of the information to criminally investigate or prosecute any alcohol or drug abuse patient.[facility] HospitalIn the event this information is protected by the Federal Confidentiality of Alcohol and Drug Abuse Patient Records regulations: The Federal rules restrict any use of the information to criminally investigate or prosecute any alcohol or drug abuse patient.[facility] HospitalIn the event this information is protected by the Federal Confidentiality of Alcohol and Drug Abuse Patient Records regulations: The Federal rules restrict any use of the information to criminally investigate or prosecute any alcohol or drug abuse patient.[facility] HospitalIn the event this information is protected by the Federal Confidentiality of Alcohol and Drug Abuse Patient Records regulations: The Federal rules restrict any use of the information to criminally investigate or prosecute any alcohol or drug abuse patient.[facility] HospitalIn the event this information is protected by the Federal Confidentiality of Alcohol and Drug Abuse Patient Records regulations: The Federal rules restrict any use of the information to criminally investigate or prosecute any alcohol or drug abuse patient.[facility] HospitalIn the event this information is protected by the Federal Confidentiality of Alcohol and Drug Abuse Patient Records regulations: The Federal rules restrict any use of the information to criminally investigate or prosecute any alcohol or drug abuse patient.[facility] HospitalIn the event this information is protected by the Federal Confidentiality of Alcohol and Drug Abuse Patient Records regulations: The Federal rules restrict any use of the information to criminally investigate or prosecute any alcohol or drug abuse patient.[facility] HospitalIn the event this information is protected by the Federal Confidentiality of Alcohol and Drug Abuse Patient Records regulations: The Federal rules restrict any use of the information to criminally investigate or prosecute any alcohol or drug abuse patient.[facility] HospitalIn the event this information is protected by the Federal Confidentiality of Alcohol and Drug Abuse Patient Records regulations: The Federal rules restrict any use of the information to criminally investigate or prosecute any alcohol or drug abuse patient.[facility] HospitalIn the event this information is protected by the Federal Confidentiality of Alcohol and Drug Abuse Patient Records regulations: The Federal rules restrict any use of the information to criminally investigate or prosecute any alcohol or drug abuse patient.[facility] HospitalIn the event this information is protected by the Federal Confidentiality of Alcohol and Drug Abuse Patient Records regulations: The Federal rules restrict any use of the information to criminally investigate or prosecute any alcohol or drug abuse patient.[facility] HospitalIn the event this information is protected by the Federal Confidentiality of Alcohol and Drug Abuse Patient Records regulations: The Federal rules restrict any use of the information to criminally investigate or prosecute any alcohol or drug abuse patient.[facility] HospitalIn the event this information is protected by the Federal Confidentiality of Alcohol and Drug Abuse Patient Records regulations: The Federal rules restrict any use of the information to criminally investigate or prosecute any alcohol or drug abuse patient.[facility] HospitalIn the event this information is protected by the Federal Confidentiality of Alcohol and Drug Abuse Patient Records regulations: The Federal rules restrict any use of the information to criminally investigate or prosecute any alcohol or drug abuse patient.[facility] HospitalIn the event this information is protected by the Federal Confidentiality of Alcohol and Drug Abuse Patient Records regulations: The Federal rules restrict any use of the information to criminally investigate or prosecute any alcohol or drug abuse patient.[facility] HospitalIn the event this information is protected by the Federal Confidentiality of Alcohol and Drug Abuse Patient Records regulations: The Federal rules restrict any use of the information to criminally investigate or prosecute any alcohol or drug abuse patient.[facility] HospitalIn the event this information is protected by the Federal Confidentiality of Alcohol and Drug Abuse Patient Records regulations: The Federal rules restrict any use of the information to criminally investigate or prosecute any alcohol or drug abuse patient.[facility] HospitalIn the event this information is protected by the Federal Confidentiality of Alcohol and Drug Abuse Patient Records regulations: The Federal rules restrict any use of the information to criminally investigate or prosecute any alcohol or drug abuse patient.[facility] HospitalIn the event this information is protected by the Federal Confidentiality of Alcohol and Drug Abuse Patient Records regulations: The Federal rules restrict any use of the information to criminally investigate or prosecute any alcohol or drug abuse patient.[facility] HospitalIn the event this information is protected by the Federal Confidentiality of Alcohol and Drug Abuse Patient Records regulations: The Federal rules restrict any use of the information to criminally investigate or prosecute any alcohol or drug abuse patient.[facility] HospitalIn the event this information is protected by the Federal Confidentiality of Alcohol and Drug Abuse Patient Records regulations: The Federal rules restrict any use of the information to criminally investigate or prosecute any alcohol or drug abuse patient.[facility] HospitalIn the event this information is protected by the Federal Confidentiality of Alcohol and Drug Abuse Patient Records regulations: The Federal rules restrict any use of the information to criminally investigate or prosecute any alcohol or drug abuse patient.[facility] HospitalIn the event this information is protected by the Federal Confidentiality of Alcohol and Drug Abuse Patient Records regulations: The Federal rules restrict any use of the information to criminally investigate or prosecute any alcohol or drug abuse patient.[facility] HospitalIn the event this information is protected by the Federal Confidentiality of Alcohol and Drug Abuse Patient Records regulations: The Federal rules restrict any use of the information to criminally investigate or prosecute any alcohol or drug abuse patient.[facility] HospitalIn the event this information is protected by the Federal Confidentiality of Alcohol and Drug Abuse Patient Records regulations: The Federal rules restrict any use of the information to criminally investigate or prosecute any alcohol or drug abuse patient.[facility] HospitalIn the event this information is protected by the Federal Confidentiality of Alcohol and Drug Abuse Patient Records regulations: The Federal rules restrict any use of the information to criminally investigate or prosecute any alcohol or drug abuse patient.[facility] HospitalIn the event this information is protected by the Federal Confidentiality of Alcohol and Drug Abuse Patient Records regulations: The Federal rules restrict any use of the information to criminally investigate or prosecute any alcohol or drug abuse patient.[facility] HospitalIn the event this information is protected by the Federal Confidentiality of Alcohol and Drug Abuse Patient Records regulations: The Federal rules restrict any use of the information to criminally investigate or prosecute any alcohol or drug abuse patient.[facility] HospitalIn the event this information is protected by the Federal Confidentiality of Alcohol and Drug Abuse Patient Records regulations: The Federal rules restrict any use of the information to criminally investigate or prosecute any alcohol or drug abuse patient.[facility] HospitalIn the event this information is protected by the Federal Confidentiality of Alcohol and Drug Abuse Patient Records regulations: The Federal rules restrict any use of the information to criminally investigate or prosecute any alcohol or drug abuse patient.[facility] HospitalIn the event this information is protected by the Federal Confidentiality of Alcohol and Drug Abuse Patient Records regulations: The Federal rules restrict any use of the information to criminally investigate or prosecute any alcohol or drug abuse patient.[facility] HospitalIn the event this information is protected by the Federal Confidentiality of Alcohol and Drug Abuse Patient Records regulations: The Federal rules restrict any use of the information to criminally investigate or prosecute any alcohol or drug abuse patient.[facility] HospitalIn the event this information is protected by the Federal Confidentiality of Alcohol and Drug Abuse Patient Records regulations: The Federal rules restrict any use of the information to criminally investigate or prosecute any alcohol or drug abuse patient.[facility] HospitalIn the event this information is protected by the Federal Confidentiality of Alcohol and Drug Abuse Patient Records regulations: The Federal rules restrict any use of the information to criminally investigate or prosecute any alcohol or drug abuse patient.[facility] HospitalIn the event this information is protected by the Federal Confidentiality of Alcohol and Drug Abuse Patient Records regulations: The Federal rules restrict any use of the information to criminally investigate or prosecute any alcohol or drug abuse patient.[facility] HospitalIn the event this information is protected by the Federal Confidentiality of Alcohol and Drug Abuse Patient Records regulations: The Federal rules restrict any use of the information to criminally investigate or prosecute any alcohol or drug abuse patient.[facility] HospitalIn the event this information is protected by the Federal Confidentiality of Alcohol and Drug Abuse Patient Records regulations: The Federal rules restrict any use of the information to criminally investigate or prosecute any alcohol or drug abuse patient.[facility] HospitalIn the event this information is protected by the Federal Confidentiality of Alcohol and Drug Abuse Patient Records regulations: The Federal rules restrict any use of the information to criminally investigate or prosecute any alcohol or drug abuse patient.[facility] HospitalIn the event this information is protected by the Federal Confidentiality of Alcohol and Drug Abuse Patient Records regulations: The Federal rules restrict any use of the information to criminally investigate or prosecute any alcohol or drug abuse patient.[facility] HospitalIn the event this information is protected by the Federal Confidentiality of Alcohol and Drug Abuse Patient Records regulations: The Federal rules restrict any use of the information to criminally investigate or prosecute any alcohol or drug abuse patient.[facility] HospitalIn the event this information is protected by the Federal Confidentiality of Alcohol and Drug Abuse Patient Records regulations: The Federal rules restrict any use of the information to criminally investigate or prosecute any alcohol or drug abuse patient.[facility] HospitalIn the event this information is protected by the Federal Confidentiality of Alcohol and Drug Abuse Patient Records regulations: The Federal rules restrict any use of the information to criminally investigate or prosecute any alcohol or drug abuse patient.[facility]In the event this information is protected by the Federal Confidentiality of Alcohol and Drug Abuse Patient Records regulations: The Federal rules restrict any use of the information to criminally investigate or prosecute any alcohol or drug abuse patient.[facility]In the event this information is protected by the Federal Confidentiality of Alcohol and Drug Abuse Patient Records regulations: The Federal rules restrict any use of the information to criminally investigate or prosecute any alcohol or drug abuse patient.[facility] HospitalIn the event this information is protected by the Federal Confidentiality of Alcohol and Drug Abuse Patient Records regulations: The Federal rules restrict any use of the information to criminally investigate or prosecute any alcohol or drug abuse patient.[facility] HospitalIn the event this information is protected by the Federal Confidentiality of Alcohol and Drug Abuse Patient Records regulations: The Federal rules restrict any use of the information to criminally investigate or prosecute any alcohol or drug abuse patient.[facility] HospitalIn the event this information is protected by the Federal Confidentiality of Alcohol and Drug Abuse Patient Records regulations: The Federal rules restrict any use of the information to criminally investigate or prosecute any alcohol or drug abuse patient.[facility] HospitalIn the event this information is protected by the Federal Confidentiality of Alcohol and Drug Abuse Patient Records regulations: The Federal rules restrict any use of the information to criminally investigate or prosecute any alcohol or drug abuse patient.[facility] HospitalIn the event this information is protected by the Federal Confidentiality of Alcohol and Drug Abuse Patient Records regulations: The Federal rules restrict any use of the information to criminally investigate or prosecute any alcohol or drug abuse patient.[facility]In the event this information is protected by the Federal Confidentiality of Alcohol and Drug Abuse Patient Records regulations: The Federal rules restrict any use of the information to criminally investigate or prosecute any alcohol or drug abuse patient.[facility] HospitalIn the event this information is protected by the Federal Confidentiality of Alcohol and Drug Abuse Patient Records regulations: The Federal rules restrict any use of the information to criminally investigate or prosecute any alcohol or drug abuse patient.[facility] [facility] the event this information is protected by the Federal Confidentiality of Alcohol and Drug Abuse Patient Records regulations: The Federal rules restrict any use of the information to criminally investigate or prosecute any alcohol or drug abuse patient.[facility]In the event this information is protected by the Federal Confidentiality of Alcohol and Drug Abuse Patient Records regulations: The Federal rules restrict any use of the information to criminally investigate or prosecute any alcohol or drug abuse patient.[facility]In the event this information is protected by the Federal Confidentiality of Alcohol and Drug Abuse Patient Records regulations: The Federal rules restrict any use of the information to criminally investigate or prosecute any alcohol or drug abuse patient.[facility]In the event this information is protected by the Federal Confidentiality of Alcohol and Drug Abuse Patient Records regulations: The Federal rules restrict any use of the information to criminally investigate or prosecute any alcohol or drug abuse patient.[facility] HospitalIn the event this information is protected by the Federal Confidentiality of Alcohol and Drug Abuse Patient Records regulations: The Federal rules restrict any use of the information to criminally investigate or prosecute any alcohol or drug abuse patient.[facility] HospitalIn the event this information is protected by the Federal Confidentiality of Alcohol and Drug Abuse Patient Records regulations: The Federal rules restrict any use of the information to criminally investigate or prosecute any alcohol or drug abuse patient.[facility] HospitalIn the event this information is protected by the Federal Confidentiality of Alcohol and Drug Abuse Patient Records regulations: The Federal rules restrict any use of the information to criminally investigate or prosecute any alcohol or drug abuse patient.[facility] HospitalIn the event this information is protected by the Federal Confidentiality of Alcohol and Drug Abuse Patient Records regulations: The Federal rules restrict any use of the information to criminally investigate or prosecute any alcohol or drug abuse patient.[facility] HospitalIn the event this information is protected by the Federal Confidentiality of Alcohol and Drug Abuse Patient Records regulations: The Federal rules restrict any use of the information to criminally investigate or prosecute any alcohol or drug abuse patient.[facility] HospitalIn the event this information is protected by the Federal Confidentiality of Alcohol and Drug Abuse Patient Records regulations: The Federal rules restrict any use of the information to criminally investigate or prosecute any alcohol or drug abuse patient.[facility] HospitalIn the event this information is protected by the Federal Confidentiality of Alcohol and Drug Abuse Patient Records regulations: The Federal rules restrict any use of the information to criminally investigate or prosecute any alcohol or drug abuse patient.[facility] HospitalIn the event this information is protected by the Federal Confidentiality of Alcohol and Drug Abuse Patient Records regulations: The Federal rules restrict any use of the information to criminally investigate or prosecute any alcohol or drug abuse patient.[facility] HospitalIn the event this information is protected by the Federal Confidentiality of Alcohol and Drug Abuse Patient Records regulations: The Federal rules restrict any use of the information to criminally investigate or prosecute any alcohol or drug abuse patient.[facility] HospitalIn the event this information is protected by the Federal Confidentiality of Alcohol and Drug Abuse Patient Records regulations: The Federal rules restrict any use of the information to criminally investigate or prosecute any alcohol or drug abuse patient.[facility] HospitalIn the event this information is protected by the Federal Confidentiality of Alcohol and Drug Abuse Patient Records regulations: The Federal rules restrict any use of the information to criminally investigate or prosecute any alcohol or drug abuse patient.[facility] HospitalIn the event this information is protected by the Federal Confidentiality of Alcohol and Drug Abuse Patient Records regulations: The Federal rules restrict any use of the information to criminally investigate or prosecute any alcohol or drug abuse patient.[facility] HospitalIn the event this information is protected by the Federal Confidentiality of Alcohol and Drug Abuse Patient Records regulations: The Federal rules restrict any use of the information to criminally investigate or prosecute any alcohol or drug abuse patient.[facility] HospitalIn the event this information is protected by the Federal Confidentiality of Alcohol and Drug Abuse Patient Records regulations: The Federal rules restrict any use of the information to criminally investigate or prosecute any alcohol or drug abuse patient.[facility] HospitalIn the event this information is protected by the Federal Confidentiality of Alcohol and Drug Abuse Patient Records regulations: The Federal rules restrict any use of the information to criminally investigate or prosecute any alcohol or drug abuse patient.[facility] HospitalIn the event this information is protected by the Federal Confidentiality of Alcohol and Drug Abuse Patient Records regulations: The Federal rules restrict any use of the information to criminally investigate or prosecute any alcohol or drug abuse patient.[facility] HospitalIn the event this information is protected by the Federal Confidentiality of Alcohol and Drug Abuse Patient Records regulations: The Federal rules restrict any use of the information to criminally investigate or prosecute any alcohol or drug abuse patient.[facility] HospitalIn the event this information is protected by the Federal Confidentiality of Alcohol and Drug Abuse Patient Records regulations: The Federal rules restrict any use of the information to criminally investigate or prosecute any alcohol or drug abuse patient.[facility] HospitalIn the event this information is protected by the Federal Confidentiality of Alcohol and Drug Abuse Patient Records regulations: The Federal rules restrict any use of the information to criminally investigate or prosecute any alcohol or drug abuse patient.[facility] HospitalIn the event this information is protected by the Federal Confidentiality of Alcohol and Drug Abuse Patient Records regulations: The Federal rules restrict any use of the information to criminally investigate or prosecute any alcohol or drug abuse patient.[facility] HospitalIn the event this information is protected by the Federal Confidentiality of Alcohol and Drug Abuse Patient Records regulations: The Federal rules restrict any use of the information to criminally investigate or prosecute any alcohol or drug abuse patient.[facility] HospitalIn the event this information is protected by the Federal Confidentiality of Alcohol and Drug Abuse Patient Records regulations: The Federal rules restrict any use of the information to criminally investigate or prosecute any alcohol or drug abuse patient.[facility] HospitalIn the event this information is protected by the Federal Confidentiality of Alcohol and Drug Abuse Patient Records regulations: The Federal rules restrict any use of the information to criminally investigate or prosecute any alcohol or drug abuse patient.[facility] HospitalIn the event this information is protected by the Federal Confidentiality of Alcohol and Drug Abuse Patient Records regulations: The Federal rules restrict any use of the information to criminally investigate or prosecute any alcohol or drug abuse patient.[facility] HospitalIn the event this information is protected by the Federal Confidentiality of Alcohol and Drug Abuse Patient Records regulations: The Federal rules restrict any use of the information to criminally investigate or prosecute any alcohol or drug abuse patient.[facility]In the event this information is protected by the Federal Confidentiality of Alcohol and Drug Abuse Patient Records regulations: The Federal rules restrict any use of the information to criminally investigate or prosecute any alcohol or drug abuse patient.[facility] HospitalIn the event this information is protected by the Federal Confidentiality of Alcohol and Drug Abuse Patient Records regulations: The Federal rules restrict any use of the information to criminally investigate or prosecute any alcohol or drug abuse patient.[facility] HospitalIn the event this information is protected by the Federal Confidentiality of Alcohol and Drug Abuse Patient Records regulations: The Federal rules restrict any use of the information to criminally investigate or prosecute any alcohol or drug abuse patient.[facility] HospitalIn the event this information is protected by the Federal Confidentiality of Alcohol and Drug Abuse Patient Records regulations: The Federal rules restrict any use of the information to criminally investigate or prosecute any alcohol or drug abuse patient.[facility] HospitalIn the event this information is protected by the Federal Confidentiality of Alcohol and Drug Abuse Patient Records regulations: The Federal rules restrict any use of the information to criminally investigate or prosecute any alcohol or drug abuse patient.[facility] HospitalIn the event this information is protected by the Federal Confidentiality of Alcohol and Drug Abuse Patient Records regulations: The Federal rules restrict any use of the information to criminally investigate or prosecute any alcohol or drug abuse patient.[facility] HospitalIn the event this information is protected by the Federal Confidentiality of Alcohol and Drug Abuse Patient Records regulations: The Federal rules restrict any use of the information to criminally investigate or prosecute any alcohol or drug abuse patient.[facility] HospitalIn the event this information is protected by the Federal Confidentiality of Alcohol and Drug Abuse Patient Records regulations: The Federal rules restrict any use of the information to criminally investigate or prosecute any alcohol or drug abuse patient.[facility]In the event this information is protected by the Federal Confidentiality of Alcohol and Drug Abuse Patient Records regulations: The Federal rules restrict any use of the information to criminally investigate or prosecute any alcohol or drug abuse patient.[facility] HospitalIn the event this information is protected by the Federal Confidentiality of Alcohol and Drug Abuse Patient Records regulations: The Federal rules restrict any use of the information to criminally investigate or prosecute any alcohol or drug abuse patient.[facility] Care Teams (unrecognized sec tion and content) Staff Psychiatrist Relationship Specialty Start Date End Date Manisha Mcknight MD [address] [facility] [place] [address] PCP - General Family Medicine 04/18/24 Staff Psychiatrist Relationship Specialty Start Date End Date Manisha Mcknight MD [address] [facility] [place] [address] PCP - General Family Medicine 04/18/24 Staff Psychiatrist Relationship Specialty Start Date End Date Manisha Mcknight MD [address] [facility] [place] [address] PCP - General Family Medicine 04/18/24 Vignesh Chappell RN 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 Hematology/Oncology 05/05/24 Staff Psychiatrist Relationship Specialty Start Date End Date Manisha Mcknight MD [address] [facility] [place] [address] PCP - General Family Medicine 04/18/24 Vignesh Chappell RN 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 Hematology/Oncology 05/05/24 Staff Psychiatrist Relationship Specialty Start Date End Date Manisha Mcknight MD [address] [place] [address] [place] [address] PCP - General Family Medicine 04/18/24 Vignesh Chappell, RN 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 Hematology/Oncology 05/05/24 Staff Psychiatrist Relationship Specialty Start Date End Date Manisha Mcknight MD [address] [place] [address] PCP - General Family Medicine 04/18/24 Vignesh Chappell RN 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 Hematology/Oncology 05/05/24 Staff Psychiatrist Relationship Specialty Start Date End Date Manisha Mcknight MD [address] [place] [address] PCP - General Family Medicine 04/18/24 Vignesh Chappell RN 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 Hematology/Oncology 05/05/24 Staff Psychiatrist Relationship Specialty Start Date End Date Manisha Mcknight MD [address] [place] [address] PCP - General Family Medicine 04/18/24 Vignesh Chappell RN 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 Hematology/Oncology 05/05/24 Staff Psychiatrist Relationship Specialty Start Date End Date Manisha Mcknight MD [address] [facility] [place] [address] PCP - General Family Medicine 04/18/24 Vignesh Chappell RN 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 Hematology/Oncology 05/05/24 Staff Psychiatrist Relationship Specialty Start Date End Date Manisha Mcknight MD [address] [place] [address] PCP - General Family Medicine 04/18/24 Vignesh Chappell RN 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 Hematology/Oncology 05/05/24 Staff Psychiatrist Relationship Specialty Start Date End Date Manisha Mcknight MD [address] [place] [address] PCP - General Family Medicine 04/18/24 Vignesh Chappell RN 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 Hematology/Oncology 05/05/24 Staff Psychiatrist Relationship Specialty Start Date End Date Manisha Mcknight MD [address] [place] [address] PCP - General Family Medicine 04/18/24 Vignesh Chappell, RN 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 Hematology/Oncology 05/05/24 Staff Psychiatrist Relationship Specialty Start Date End Date Manisha Mcknight MD [address] [place] [address] PCP - General Family Medicine 04/18/24 Vignesh Chappell RN 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 Hematology/Oncology 05/05/24 Staff Psychiatrist Relationship Specialty Start Date End Date Manisha Mcknight MD [address] [place] [address] PCP - General Family Medicine 04/18/24 Vignesh Chappell, RN 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 Hematology/Oncology 05/05/24 Staff Psychiatrist Relationship Specialty Start Date End Date Manisha Mcknight MD [address] [place] [address] PCP - General Family Medicine 04/18/24 Vignesh Chappell RN 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 Hematology/Oncology 05/05/24 Staff Psychiatrist Relationship Specialty Start Date End Date Manisha Mcknight MD [address] [place] [address] PCP - General Family Medicine 04/18/24 Vignesh Chappell RN 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 Hematology/Oncology 05/05/24 Staff Psychiatrist Relationship Specialty Start Date End Date Manisha Mcknight MD [address] [place] [address] PCP - General Family Medicine 04/18/24 Vignesh Chappell, 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 Hematology/Oncology 05/05/24 Staff Psychiatrist Relationship Specialty Start Date End Date Manisha Mcknight MD [address] [place] [address] PCP - General Family Medicine 04/18/24 Vignesh Chappell RN 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 Hematology/Oncology 05/05/24 Staff Psychiatrist Relationship Specialty Start Date End Date Manisha Mcknight MD [address] [place] [address] PCP - General Family Medicine 04/18/24 Vignesh Chappell RN 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 Hematology/Oncology 05/05/24 Staff Psychiatrist Relationship Specialty Start Date End Date Manisha Mcknight MD [address] [place] [address] PCP - General Family Medicine 04/18/24 Vignesh Chappell RN 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 Hematology/Oncology 05/05/24 Staff Psychiatrist Relationship Specialty Start Date End Date Manisha Mcknight MD [address] [place] [address] PCP - General Family Medicine 04/18/24 Vignesh Chappell RN 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 Hematology/Oncology 05/05/24 Staff Psychiatrist Relationship Specialty Start Date End Date Manisha Mcknight MD [address] [place] [address] PCP - General Family Medicine 04/18/24 Vignesh Chappell, 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 Hematology/Oncology 05/05/24 Staff Psychiatrist Relationship Specialty Start Date End Date Manisha Mcknight MD [address] [place] [address] PCP - General Family Medicine 04/18/24 Vignesh Chappell RN 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 Hematology/Oncology 05/05/24 Staff Psychiatrist Relationship Specialty Start Date End Date Manisha Mcknight MD [address] [facility] [place] [address] PCP - General Family Medicine 04/18/24 Vignesh Chappell RN 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 Hematology/Oncology 05/05/24 Staff Psychiatrist Relationship Specialty Start Date End Date Manisha Mcknight MD [address] [facility] [place] [address] PCP - General Family Medicine 04/18/24 Vignesh Chappell RN 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 Hematology/Oncology 05/05/24 Staff Psychiatrist Relationship Specialty Start Date End Date Manisha Mcknight MD [address] [facility] [place] [address] PCP - General Family Medicine 04/18/24 Vignesh Chappell RN 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 Hematology/Oncology 05/05/24 Staff Psychiatrist Relationship Specialty Start Date End Date Manisha Mcknight MD [address] [facility] [place] [address] PCP - General Family Medicine 04/18/24 Vignesh Chappell RN 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 Hematology/Oncology 05/05/24 Staff Psychiatrist Relationship Specialty Start Date End Date Manisha Mcknight MD [address] [facility] [place] [address] PCP - General Family Medicine 04/18/24 Vignesh Chappell RN 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 Hematology/Oncology 05/05/24 Staff Psychiatrist Relationship Specialty Start Date End Date Manisha Mcknight MD [address] [facility] [place] [address] PCP - General Family Medicine 04/18/24 Vignesh Chappell, RN 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 Hematology/Oncology 05/05/24 Staff Psychiatrist Relationship Specialty Start Date End Date Manisha Mcknight MD [address] [place] [address] PCP - General Family Medicine 04/18/24 Vignesh Chappell, 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 Hematology/Oncology 05/05/24 Staff Psychiatrist Relationship Specialty Start Date End Date Manisha Mcknight MD [address] [place] [address] PCP - General Family Medicine 02/11/23 Staff Psychiatrist Relationship Specialty Start Date End Date Manisha Mcknight MD [address] [place] [address] PCP - General Family Medicine 02/11/23 Staff Psychiatrist Relationship Specialty Start Date End Date Manisha Mcknight MD [address] [place] [address] PCP - General Family Medicine 04/18/24 Vignesh Chappell RN 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 Hematology/Oncology 05/05/24 Staff Psychiatrist Relationship Specialty Start Date End Date Manisha Mcknight MD [address] [place] [address] PCP - General Family Medicine 02/11/23 Staff Psychiatrist Relationship Specialty Start Date End Date Manisha Mcknight MD [address] [place] [address] PCP - General Family Medicine 04/18/24 Vignesh Chappell, 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 Hematology/Oncology 05/05/24 Staff Psychiatrist Relationship Specialty Start Date End Date Manisha Mcknight MD [address] [place] [address] PCP - General Family Medicine 04/18/24 Vignesh Chappell RN 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 Hematology/Oncology 05/05/24 Staff Psychiatrist Relationship Specialty Start Date End Date Manisha Mcknight MD [address] [place] [address] PCP - General Family Medicine 04/18/24 Vignesh Chappell RN 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 Hematology/Oncology 05/05/24 Staff Psychiatrist Relationship Specialty Start Date End Date Manisha Mcknight MD [address] [place] [address] PCP - General Family Medicine 02/11/23 Staff Psychiatrist Relationship Specialty Start Date End Date Manisha Mcknight MD [address] [place] [address] PCP - General Family Medicine 04/18/24 Vignesh Chappell RN 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 Hematology/Oncology 05/05/24 Staff Psychiatrist Relationship Specialty Start Date End Date Manisha Mcknight MD [address] [place] [address] PCP - General Family Medicine 04/18/24 Vignesh Chappell RN 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 Hematology/Oncology 05/05/24 Staff Psychiatrist Relationship Specialty Start Date End Date Manisha Mcknight MD [address] [place] [address] PCP - General Family Medicine 02/11/23 Staff Psychiatrist Relationship Specialty Start Date End Date Manisha Mcknight MD [address] [place] [address] PCP - General Family Medicine 02/11/23 Staff Psychiatrist Relationship Specialty Start Date End Date Manisha Mcknight MD [address] [place] [address] [place] [address] PCP - General Family Medicine 04/18/24 Vignesh Chappell, 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 Hematology/Oncology 05/05/24 Staff Psychiatrist Relationship Specialty Start Date End Date Manisha Mcknight MD [address] [facility] [place] [address] PCP - General Family Medicine 04/18/24 Vignesh Chappell RN 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 Hematology/Oncology 05/05/24 Staff Psychiatrist Relationship Specialty Start Date End Date Manisha Mcknight MD [address] [facility] [place] [address] PCP - General Family Medicine 04/18/24 Vignesh Chappell RN 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 Hematology/Oncology 05/05/24 Staff Psychiatrist Relationship Specialty Start Date End Date Manisha Mcknight MD [address] [place] [address] PCP - General Family Medicine 02/11/23 Staff Psychiatrist Relationship Specialty Start Date End Date Manisha Mcknight MD [address] [place] [address] PCP - General Family Medicine 02/11/23 Staff Psychiatrist Relationship Specialty Start Date End Date Manisha Mcknight MD [address] [place] [address] PCP - General Family Medicine 02/11/23 Staff Psychiatrist Relationship Specialty Start Date End Date Manisha Mcknight MD [address] [place] [address] PCP - General Family Medicine 04/18/24 Vignesh Chappell RN 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 Hematology/Oncology 05/05/24 Staff Psychiatrist Relationship Specialty Start Date End Date Manisha Mcknight MD [address] [facility] [place] [address] PCP - General Family Medicine 02/11/23 Staff Psychiatrist Relationship Specialty Start Date End Date Manisha Mcknihgt MD [address] [facility] [place] [address] PCP - General Family Medicine 04/18/24 Vignesh Chappell RN 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 Hematology/Oncology 05/05/24 Staff Psychiatrist Relationship Specialty Start Date End Date Manisha Mcknight MD [address] [facility] [place] [address] PCP - General Family Medicine 04/18/24 Vignesh Chappell RN 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 Hematology/Oncology 05/05/24 Staff Psychiatrist Relationship Specialty Start Date End Date Manisha Mcknight MD [address] [facility] [place] [address] PCP - General Family Medicine 02/11/23 Staff Psychiatrist Relationship Specialty Start Date End Date Manisha Mcknight MD [address] [facility] [place] [address] PCP - General Family Medicine 04/18/24 Vignesh Chappell RN 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 Hematology/Oncology 05/05/24 Staff Psychiatrist Relationship Specialty Start Date End Date Manisha Mcknight MD [address] [facility] [place] [address] PCP - General Family Medicine 04/18/24 Vignesh Chappell RN [employer]ty 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 Hematology/Oncology 05/05/24 Staff Psychiatrist Relationship Specialty Start Date End Date Manisha Mcknight MD [address] [facility] [place] [address] PCP - General Family Medicine 04/18/24 Vignesh Chappell RN [employer]ty 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 Hematology/Oncology 05/05/24 Staff Psychiatrist Relationship Specialty Start Date End Date Manisha Mcknight MD [address] [place] [address] PCP - General Family Medicine 04/18/24 Vignesh Chappell, RN [employer]ty 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 Hematology/Oncology 05/05/24 Staff Psychiatrist Relationship Specialty Start Date End Date Manisha Mcknight MD [address] [place] [address] PCP - General Family Medicine 04/18/24 Vignesh Chappell, RN [employer]ty 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 Hematology/Oncology 05/05/24 Delaney Haro, [place] [address] [place] [address] [employer]ty 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 Radiation Oncology 09/21/24 Staff Psychiatrist Relationship Specialty Start Date End Date Manisha Mcknight MD [address] [place] [address] PCP - General Family Medicine 04/18/24 Vignesh Chappell, RN [employer]ty 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 Hematology/Oncology 05/05/24 Delaney Haro, [place] [address] [place] [address] [employer]ty 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 Radiation Oncology 09/21/24 Staff Psychiatrist Relationship Specialty Start Date End Date Manisha Mcknight MD [address] [place] [address] PCP - General Family Medicine 04/18/24 Vignesh Chappell, RN Specialty 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 Hematology/Oncology 05/05/24 Delaney Haro, [address] [address] [place] [address] [employer]ty 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 Radiation Oncology 09/21/24 Staff Psychiatrist Relationship Specialty Start Date End Date Manisha Mcknight MD [address] [place] [address] PCP - General Family Medicine 04/18/24 Vignesh Chappell, RN Specialty 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 Hematology/Oncology 05/05/24 [place] [address] [place] [address] [employer]ty 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 Radiation Oncology 09/21/24 Staff Psychiatrist Relationship Specialty Start Date End Date Manisha Mcknight MD [address] [place] [address] PCP - General Family Medicine 04/18/24 Vignesh Chappell, RN Specialty 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 Hematology/Oncology 05/05/24 [place] [address] [place] [id number] Specialty 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 Radiation Oncology 09/21/24 Staff Psychiatrist Relationship Specialty Start Date End Date Manisha Mcknight MD [address] [place] [address] PCP - General Family Medicine 04/18/24 Vignesh Chappell, RN Specialty 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 Hematology/Oncology 05/05/24 Delaney Haro, [address] [address] [place] [address] Specialty 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 Radiation Oncology 09/21/24 Staff Psychiatrist Relationship Specialty Start Date End Date Manisha Mcknight MD [address] [place] [address] PCP - General Family Medicine 04/18/24 Vignesh Chappell, RN Specialty 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 Hematology/Oncology 05/05/24 Staff Psychiatrist Relationship Specialty Start Date End Date Manisha Mcknight MD [address] [place] [address] PCP - General Family Medicine 04/18/24 Vignesh Chappell, RN Specialty 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 Hematology/Oncology 05/05/24 Staff Psychiatrist Relationship Specialty Start Date End Date Manisha Mcknight MD [address] [facility] [place] [address] PCP - General Family Medicine 04/18/24 Vignesh Chappell, BRIDGETTE Specialty 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 Hematology/Oncology 05/05/24 Staff Psychiatrist Relationship Specialty Start Date End Date Manisha Mcknight MD [address] [facility] [place] [address] PCP - General Family Medicine 04/18/24 Vignesh Chappell, RN Specialty 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 Hematology/Oncology 05/05/24 [place] [address] [place] [address] Specialty 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 Radiation Oncology 09/21/24 Staff Psychiatrist Relationship Specialty Start Date End Date Manisha Mcknight MD [address] [facility] [place] [address] PCP - General Family Medicine 04/18/24 Vignesh Chappell, RN Specialty 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 Hematology/Oncology 05/05/24 [place] [address] [place] [address] Specialty 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 Radiation Oncology 09/21/24 Staff Psychiatrist Relationship Specialty Start Date End Date Manisha Mcknight MD [address] [facility] [place] [address] PCP - General Family Medicine 04/18/24 Vignesh Chappell RN Specialty 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 Hematology/Oncology 05/05/24 [place] [address] [place] [address] Specialty 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 Radiation Oncology 09/21/24 Staff Psychiatrist Relationship Specialty Start Date End Date Manisha Mcknight MD [address] [facility] [place] [address] PCP - General Family Medicine 04/18/24 Chappell, Chondra, RN Specialty 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 Hematology/Oncology 05/05/24 [place] [address] [place] [address] Specialty 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 Radiation Oncology 09/21/24 Staff Psychiatrist Relationship Specialty Start Date End Date Manisha Mcknight MD [address] [place] [address] PCP - General Family Medicine 04/18/24 Vignesh Chappell RN Specialty 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 Hematology/Oncology 05/05/24 [place] [address] [place] [address] Specialty 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 Radiation Oncology 09/21/24 Staff Psychiatrist Relationship Specialty Start Date End Date Manisha Mcknight MD [address] [place] [address] PCP - General Family Medicine 04/18/24 Vignesh Chappell RN Specialty 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 Hematology/Oncology 05/05/24 [place] [address] [place] [address] Specialty 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 Radiation Oncology 09/21/24 Staff Psychiatrist Relationship Specialty Start Date End Date Manisha Mcknight MD [address] [place] [address] PCP - General Family Medicine 04/18/24 Vignesh Chappell RN Specialty 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 Hematology/Oncology 05/05/24 [place] [address] [place] [address] Specialty 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 Radiation Oncology 09/21/24 Staff Psychiatrist Relationship Specialty Start Date End Date Manisha Mcknight MD [address] [place] [address] PCP - General Family Medicine 04/18/24 Vignesh Chappell RN Specialty 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 Hematology/Oncology 05/05/24 [place] [address] [place] [address] Specialty 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 Radiation Oncology 09/21/24 Staff Psychiatrist Relationship Specialty Start Date End Date Manisha Mcknight MD [address] [facility] [place] [address] PCP - General Family Medicine 04/18/24 Vignesh Chappell, BRIDGETTE Specialty 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 Hematology/Oncology 05/05/24 [place] [address] [place] [address] Specialty 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 Radiation Oncology 09/21/24 Staff Psychiatrist Relationship Specialty Start Date End Date Manisha Mcknight MD [address] [facility] [place] [address] PCP - General Family Medicine 04/18/24 Vignesh Chappell, BRIDGETTE Specialty 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 Hematology/Oncology 05/05/24 Delaney Haro, [address] [address] [place] [address] Specialty 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 Radiation Oncology 09/21/24 Staff Psychiatrist Relationship Specialty Start Date End Date Manisha Mcknight MD [address] [facility] [place] [address] PCP - General Family Medicine 04/18/24 Vignesh Chappell RN Specialty 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 Hematology/Oncology 05/05/24 Delaney Haro, [address] [address] [place] [address] Specialty 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 Radiation Oncology 09/21/24 Staff Psychiatrist Relationship Specialty Start Date End Date Manisha Mcknight MD [address] [place] [address] PCP - General Family Medicine 08/28/22 Staff Psychiatrist Relationship Specialty Start Date End Date Manisha Mcknight MD [address] [place] [address] PCP - General Family Medicine 04/18/24 Vignesh Chappell, RN Specialty 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 Hematology/Oncology 05/05/24 [place] [address] [place] [address] Specialty 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 Radiation Oncology 09/21/24 Staff Psychiatrist Relationship Specialty Start Date End Date Manisha Mcknight MD [address] [facility] [place] [address] PCP - General Family Medicine 04/18/24 Vignesh Chappell, RN Specialty 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 Hematology/Oncology 05/05/24 [place] [address] [place] [address] Specialty 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 Radiation Oncology 09/21/24 Staff Psychiatrist Relationship Specialty Start Date End Date Manisha Mcknight MD [address] [facility] [place] [address] PCP - General Family Medicine 04/18/24 Vignesh Chappell RN Specialty 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 Hematology/Oncology 05/05/24 [place] [address] [place] [address] Specialty 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 Radiation Oncology 09/21/24 Staff Psychiatrist Relationship Specialty Start Date End Date Manisha Mcknight MD [address] [facility] [place] [address] PCP - General Family Medicine 04/18/24 Vignesh Chappell RN Specialty 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 Hematology/Oncology 05/05/24 Del[place], [place] [id number] [place] [address] Specialty 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 Radiation Oncology 09/21/24 Staff Psychiatrist Relationship Specialty Start Date End Date Manisha Mcknight MD [address] [place] [address] PCP - General Family Medicine 04/18/24 Vignesh Chappell, RN Specialty 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 Hematology/Oncology 05/05/24 Delaney Haro, [address] [address] [place] [address] Specialty 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 Radiation Oncology 09/21/24 Staff Psychiatrist Relationship Specialty Start Date End Date Manisha Mcknight MD [address] [facility] [place] [address] PCP - General Family Medicine 04/18/24 Vignesh Chappell, RN Specialty 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 Hematology/Oncology 05/05/24 [place] [address] [place] [address] Specialty 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 Radiation Oncology 09/21/24 Staff Psychiatrist Relationship Specialty Start Date End Date Manisha Mcknight MD [address] [facility] [place] [address] PCP - General Family Medicine 04/18/24 Vignesh Chappell, BRIDGETTE Specialty 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 Hematology/Oncology 05/05/24 [place] [address] [place] [address] Specialty 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 Radiation Oncology 09/21/24 Staff Psychiatrist Relationship Specialty Start Date End Date Manisha Mcknight MD [address] [facility] [place] [address] PCP - General Family Medicine 04/18/24 Vignesh Chappell RN Specialty 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 Hematology/Oncology 05/05/24 [place] [address] [place] [address] Specialty 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 Radiation Oncology 09/21/24 Staff Psychiatrist Relationship Specialty Start Date End Date Manisha Mcknight MD [address] [place], [place] [address] PCP - General Family Medicine 04/18/24 Vignesh Chappell, RN Specialty 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 Hematology/Oncology 05/05/24 [place] [address] [place] [address] Specialty 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 Radiation Oncology 09/21/24 Staff Psychiatrist Relationship Specialty Start Date End Date Manisha Mcknight MD [address] [place], [place] [address] PCP - General Family Medicine 04/18/24 Vignesh Chappell, RN Specialty 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 Hematology/Oncology 05/05/24 [place] [address] [place] [address] Specialty 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 Radiation Oncology 09/21/24 Staff Psychiatrist Relationship Specialty Start Date End Date Manisha Mcknight MD [address] [place], [place] [address] PCP - General Family Medicine 04/18/24 Vignesh Chappell, RN Specialty 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 Hematology/Oncology 05/05/24 [place] [address] [place] [address] Specialty 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 Radiation Oncology 09/21/24 Reason for Visit (unrecogniz ed section and content) Reason Comments Established Patient Specialty Diagnoses / Procedures Referred By Contac t Referred To Contact Radiation Oncology / RADIATION ONCOLOGY Diagnoses Location: NURSING MD- Activity: NURSE RADJustin SIM ED Procedures NURSE RADJustin EDUCATION Self Main, Nurse Radt [address] [place] [address] Phone: tel: Referral ID Status Reason Start Date Expiration Date V isits Requested Visits Authorized [id number] Closed Patient Cleared - Qualified 100% FAS 11/18/2024 10/05/2025 99 99 Reason Comments pentamidine treatment Specialty Diagnoses / Procedures Referred By Contac t Referred To Contact ADMITTING Diagnoses 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] Procedures CHEMOTX ADMN ADJUSTER LEADER REQ SPINAL PUNCTURE ADMINISTRATION CHEMOTHERAPY INTO ADJUSTER LEADER W/ SPINAL PUNCTURE Angio [address] [place] [address] Referral ID Status Reason Start Date Expiration Date Visits Re quested Visits Authorized [id number] 1 1 Specialty Diagnoses / Procedures Referred By Contac t Referred To Contact Hematology/Oncology / HEMATOLOGY/ONCOLOGY Diagnoses Lymphoblastic (diffuse) lymphoma, 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 follow up per wq Procedures OFFICE/OUTPATIENT ESTABLISHED MOD MDM 30 MIN EST PATIENT [place] [address] [place] [address] Referral ID Status Reason Start Date Expiration Date Visits Re quested Visits Authorized [id number] Closed 08/23/2024 10/05/2024 1 1 Specialty Diagnoses / Procedures [facility] To Contact ADMITTING Diagnoses TLL (T-cell lymphoblastic lymphoma) (HCC) TLL (T-cell lymphoblastic lymphoma) (HCC) [C83.50] Procedures CHEMOTX ADMN ADJUSTER LEADER REQ SPINAL PUNCTURE ADMINISTRATION CHEMOTHERAPY INTO ADJUSTER LEADER W/ SPINAL PUNCTURE [facility] Angio Hb[address] [place] [id number] Referral ID Status Reason Start Date Expiration Date Visits Re quested Visits Authorized [id number] 1 1 Reason Comments Insulin Dependent Diabetes Mellitus Specialty Diagnoses / Procedures [facility] Referred To Contact Endocrinology / ENDOCRINOLOGY Diagnoses 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 Procedures PHYS/QHP TELEPHONE EVALUATION 5-10 MIN VIDEO SPEC EST Manisha Mcknight MD [address] [place] [address] Laly Buchanan, SAIL REPAIR PERSON.DATA REVIEW SPECIALIST [address] [place] [id number] Referral ID Status Reason Start Date Expiration Date Visits Re quested Visits Authorized [id number] Closed 07/13/2024 10/05/2024 1 1 Reason Comments Results Reason Onset Date Comments Refill Request 05/16/2024 Reason Onset Date Comments SPP Injectab Oncology/hematology-Treatment Refer ral 05/17/2024 Neupogen 300mcg/0.5ml Reason Comments Appointment Specialty Diagnoses / Procedures [facility] Referred To Contact Diagnoses 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HCC) Procedures VINCRISTINE SULFATE 1 MG INJ INJ, CYCLOPHOSPHAMD, SANDOZ PALONOSETRON HCL INJ, NYVEPRIA, 0.5 MG Marcelina Rangel MD, PhD [address] [place] [address] [place] [address] [address] [place] [id number] Referral ID Status Reason Start Date Expiration Date V isits Requested Visits Authorized [id number] Authorized 04/22/2024 10/05/2024 99 99 Reason Onset Date Comments Refill Request 05/28/2024 Reason Comments Radio Gen [id number] Referral ID Status Reason Start Date Expiration Date Visits Requested Visits Authorized [id number] Authorized Patient Cleared INN/SMCP Payor Auth Obtained 04/22/2024 10/05/2024 99 99 Specialty Diagnoses / Procedures Referred By Princess kelsey Referred To Contact ADMITTING Diagnoses TLL (T-cell lymphoblastic lymphoma) (HCC) Procedures CHEMOTX ADMN ADJUSTER LEADER REQ SPINAL PUNCTURE ADMINISTRATION CHEMOTHERAPY INTO ADJUSTER LEADER W/ SPINAL PUNCTURE [facility] Angio Hb[address] [place] [address] Referral ID Status Reason Start Date Expiration Date Visits Re quested Visits Authorized [id number] 1 1 Reason Comments 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 - Other Breathing Treat ment Reason Onset Date Comments Refill Request 06/15/2024 Reason Comments 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 - Other Pantoprazole-Ca n't Compound Reason Onset Date Comments Refill Request 06/16/2024 Reason Onset Date Comments Refill Request 06/17/2024 Lovenox Reason Onset Date Comments Refill Request 06/17/2024 Reason Comments Pentamidine Aerosol Treatment Reason Comments 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 - Other [place] Patient Reason Comments Refill Request Reason Comments Med Change Request Reason Comments 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 - Other Diagnosis Code Reason Comments 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 - Other Lovenox Rx Reason Comments New Patient Hosp d/c follow up Reason Comments 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 - Other Plan Of Care Reason Onset Date Comments Refill Request 07/09/2024 Reason Comments Hypertension Patient presents tod ay for high bp. Patient started a new chemo medication and some of the chemo medications cause hypertension. Reason Comments 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 - Other Gabapentin & Zo robert Reason Onset Date Comments Refill Request 07/15/2024 Specialty Diagnoses / Procedures Referred By Princess t Referred To Contact ADMITTING Diagnoses TLL (T-cell lymphoblastic lymphoma) (HCC) TLL (T-cell lymphoblastic lymphoma) (HCC) [C83.50] Procedures CHEMOTX ADMN ADJUSTER LEADER REQ SPINAL PUNCTURE ADMINISTRATION CHEMOTHERAPY INTO ADJUSTER LEADER W/ SPINAL PUNCTURE [facility] Angio Hb[address] [place] [address] Referral ID Status Reason Start Date Expiration Date Visits Re quested Visits Authorized [id number] 1 1 Reason Comments Follow-up Patient here for a f ollow up on her blood pressure. She was never able to get the BP meds because insurance would not cover the liquid form. She stated that she is struggling right now with her medications. Reason Onset Date Comments Refill Request 08/09/2024 Specialty Diagnoses / Procedures Referred By Princess t Referred To Contact Endocrinology / ENDOCRINOLOGY Diagnoses Controlled steroid-induced diabetes mellitus (HCC) Follow up in 1 month Procedures PHYS/QHP TELEPHONE EVALUATION 5-10 MIN VIDEO SPEC EST Manisha Mcknight MD [address] [place] [address] Laly Buchanan, SAIL REPAIR PERSON.DATA REVIEW SPECIALIST [address] [place] [address] Referral ID Status Reason Start Date Expiration Date Visits Re quested Visits Authorized [id number] Closed 08/16/2024 10/05/2024 1 1 Reason Onset Date Comments Refill Request 08/16/2024 Reason Comments Bone Marrow Aspirate/Biopsy Specialty Diagnoses / Procedures Referred By Contac t Referred To Contact Hematology/Oncology / HEMATOLOGY/ONCOLOGY Diagnoses Lymphoblastic (diffuse) lymphoma, 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 bmbx per wq Procedures DIAGNOSTIC BONE MARROW BIOPSIES BONE MARROW UNILATERAL [place] [address] [place] [address] [place] [address] [address] [place] [id number] Referral ID Status Reason Start Date Expiration Date Visits Re quested Visits Authorized [id number] Closed 08/17/2024 10/05/2024 2 2 Specialty Diagnoses / Procedures Referred By Contac t Referred To Contact PULMONARY MEDICINE Diagnoses Pentamethonium bromide overdose pentam Procedures OFFICE/OUTPATIENT ESTABLISHED MOD MDM 30 MIN RI AEROSOL PENTAMADINE [place] [address] [place] [address] [address] [place] [address] Referral ID Status Reason Start Date Expiration Date V isits Requested Visits Authorized [id number] Denied OON/Self Pay Override Clearance Not Met -Financial Clearance Bypassed 08/17/2024 11/15/2024 1 0 Reason Onset Date Comments Refill Request 08/18/2024 Reason Comments Bone Marrow Biopsy Next Day Call Reason Onset Date Comments Refill Request 08/20/2024 Reason Onset Date Comments Refill Request 08/24/2024 Reason Comments Nm Pet Request Reason Comments 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 - Other Treatment plan request Reason Comments 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 - Other 08/23 Office No te Reason Comments Radiology NM Specialty Diagnoses / Procedures Referred By Princess t Referred To Contact MOLECULAR & FUNCTIONAL IMAGING Diagnoses 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HCC) Procedures NM PET/CT WHOLE BODY SUBSEQUENT PET IMAGING FOR CT ATTENUATION WHOLE [place] [address] [place] [address] Molecular & Functional Imaging [address] [place] [address] Referral ID Status Reason Start Date Expiration Date V isits Requested Visits Authorized [id number] Closed Auto-Generate d Referral 08/27/2024 10/05/2024 1 1 Referral ID Status Reason Start Date Expiration Date Visits Re quested Visits Authorized [id number] 1 1 Reason Comments [id number] Initial Consult Reason Onset Date Comments Refill Request 08/30/2024 Reason Onset Date Comments Refill Request 09/13/2024 Reason Comments 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 - Other Refills / MRI Reason Comments Palliative Care Pain Specialty Diagnoses / Procedures Referred By Contannalise t Referred To Contact Hospice & Palliative Medicine / PALLIATIVE MEDICINE Diagnoses Lymphoblastic leukemia (HCC) New consult pall med in [place]-cell acute lymphoblastic leukemia Procedures OFFICE/OUTPATIENT NEW MODERATE MDM 45 MINUTES NEW/CON [place] [address] [place] [address] Shana Ferguson, SAIL REPAIR PERSON.DATA REVIEW SPECIALIST [address] [place] [id number] Referral ID Status Reason Start Date Expiration Date Visits Re quested Visits Authorized [id number] Closed 09/10/2024 10/05/2024 1 1 Reason Onset Date Comments Medication Problem 09/17/2024 Patient did r eceive medications from [facility] [place] on the September 15. Reason Onset Date Comments Refill Request 09/17/2024 Reason Comments Medication Problem pantoprazole oral li quid 2 mg/mL (CPD) Reason Comments 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 - Other ER Visit Reason Comments 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 - Other Hospital transf er Reason Comments Consult Specialty Diagnoses / Procedures Referred By Contac t Referred To Contact Radiation Oncology Diagnoses 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HCC) Procedures RAD/ONC CONSULT OFFICE/OUTPATIENT NEW HIGH MDM 60 MINUTES [place] [address] [place] [address] [place] [address] Referral ID Status Reason Start Date Expiration Date V isits Requested Visits Authorized [id number] Closed PCP Requested Referral 09/17/2024 10/05/2025 1 1 Reason Comments Radiotherapy On-treatment Visit Specialty Diagnoses / Procedures Referred By Contac t Referred To Contact HOSP INPATIENT Diagnoses ALL Procedures EVAL AND TREAT - PT Hosp Main [address] [place] [address] Referral ID Status Reason Start Date Expiration Date Visits Re quested Visits Authorized [id number] 1 1 Reason Comments 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 - Other Peer to peer Reason Comments Palliative Care Specialty Diagnoses / Procedures Referred By Contac t Referred To Contact Hospice & Palliative Medicine / PALLIATIVE MEDICINE Diagnoses Palliative care by specialist 4 week follow up Procedures OFFICE/OUTPATIENT ESTABLISHED MOD MDM 30 MIN EST PATIENT Self Shana Ferguson, SAIL REPAIR PERSON.DATA REVIEW SPECIALIST [address] [place] [id number] Referral ID Status Reason Start Date Expiration Date Visits Re quested Visits Authorized [id number] Closed 10/14/2024 10/05/2025 1 1 Reason Onset Date Comments Refill Request 10/18/2024 Specialty Diagnoses / Procedures Referred By Contac t Referred To Contact Hematology/Oncology / HEMATOLOGY/ONCOLOGY Diagnoses Syncope, unspecified syncope type HOSP DC FOLLOW UP NC STAFF MSG Procedures OFFICE/OUTPATIENT ESTABLISHED MOD MDM 30 MIN EST [place] [address] [place] [address] Marcel[place] [address] [place] [address] Referral ID Status Reason Start Date Expiration Date Visits Re quested Visits Authorized [id number] Closed 10/15/2024 10/05/2025 1 1 Reason Comments 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 - Other Lovenox- Pharma cy change Reason Onset Date Comments Refill Request 10/19/2024 Reason Comments 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 - Other [id number] Re view Reason Comments Radiology CT Specialty Diagnoses / Procedures Referred By Contac t Referred To Contact CT IMAGING Diagnoses 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HCC) Procedures CT CHEST W IVCON DIAGNOSTIC COMPUTED TOMOGRAPHY THORAX W/CONTRAST Kobe Medellin MD [address] [place] [address] [facility] [place] [address] Referral ID Status Reason Start Date Expiration Date V isits Requested Visits Authorized [id number] Closed Auto-Generate d Referral 10/28/2024 10/05/2025 1 1 Reason Onset Date Comments Refill Request 10/29/2024 Reason Comments 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 - Other Vincristine Reason Comments 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 - Other DUSTIN Reason Comments 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 - Other Patient update Reason Onset Date Comments Refill Request 11/15/2024 Reason Comments 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 - Other Medication Refi ll - [facility] has not received Reason Comments Radiology MRI Specialty Diagnoses / Procedures Referred By Contac t Referred To Contact Radiation Oncology / RADIATION ONCOLOGY Diagnoses Location: NURSING [facility] Activity: NURSE RADT SIM ED Procedures NURSE DAVID EDUCATION Self Main, Nurse David [address] [place] [address] Phone: tel: Referral ID Status Reason Start Date Expiration Date V isits Requested Visits Authorized [id number] Closed Patient Cleared - Qualified 100% FAS 09/28/2024 12/27/2024 99 99 Reason Comments Hernia Umbilical hernia, re ferred by Dr. Mcknight Specialty Diagnoses / Procedures Referred By Contac t Referred To Contact General Surgery Diagnoses Umbilical hernia without obstruction and without gangrene Procedures NC OFFICE OUTPATIENT VISIT 60-74 MINS HIGH MDM AMB REFERRAL TO GENERAL SURGERY Manisha Mcknight MD [address] [place] [address] Onesimo Mills MD [address] [place] [address] Referral ID Status Reason Start Date Expiration Date Visits Re quested Visits Authorized [id number] Closed 02/03/2024 08/01/2024 1 1 Reason Comments Follow Up Referral ID Status Reason Start Date Expiration Date V isits Requested Visits Authorized [id number] Closed Patient Cleared - Qualified 100% FAS 09/28/2024 12/27/2024 99 99 Reason Onset Date Comments Refill Request 11/22/2024 Reason Comments Palliative care by specialist Follow up Anxiety Specialty Diagnoses / Procedures Referred By Contac t Referred To Contact Radiation Oncology / RADIATION ONCOLOGY Diagnoses Location: NURSING [facility]- Activity: NURSE RADT SIM ED Procedures NURSE RADJustin EDUCATION Self Main, Nurse Radt [address] [place] [address] Phone: tel: Referral ID Status Reason Start Date Expiration Date V isits Requested Visits Authorized [id number] Closed Patient Cleared - Qualified 100% FAS 11/18/2024 10/05/2025 99 99 Reason Comments Medication Update MP6 and Fluconazole hold date (11/25/2024) Reason Comments Nutrition Assessment Specialty Diagnoses / Procedures Referred By Contac t Referred To Contact Nutrition / NUTRI SAND Diagnoses Acute lymphoblastic leukemia (ALL) (HCC) Nutri ref by [facility] DATA REVIEW SPECIALIST Estefani Ferguson Procedures OFFICE/OUTPATIENT NEW MODERATE MDM 45 MINUTES EST PATIENT Shana Ferguson, SAIL REPAIR PERSON.DATA REVIEW SPECIALIST [address] [place] [address] [place] [address] Phone: tel: fax: Radha Garcia, RD [address] [place] [address] Phone: tel: Referral ID Status Reason Start Date Expiration Date Visits Re quested Visits Authorized [id number] Closed 11/29/2024 10/05/2025 1 1 Reason Onset Date Comments Refill Request 12/03/2024 Reason Comments 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 - Other Medical advice Reason Onset Date Comments Refill Request 12/08/2024 Reason Onset Date Comments Refill Request 12/14/2024 Reason Comments Nutrition Counseling Reason Comments Medication Update Resume date for MP6 (12/15/2024) Reason Comments Follow Up Specialty Diagnoses / Procedures Referred By Contac t Referred To Contact Radiation Oncology / RADIATION ONCOLOGY Diagnoses Location: NURSING [facility]- Activity: NURSE RADT SIM ED Procedures NURSE RADT EDUCATION Self Main, Nurse Radt [address] [place] [address] Phone: tel: Reason Comments 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 - Other DX for Script Reason Comments Pentamidine Treatment Specialty Diagnoses / Procedures Referred By Contac t Referred To Contact PULMONARY MEDICINE Diagnoses Lymphoblastic (diffuse) lymphoma, 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 PENTAMIDINE per wq Procedures OFFICE/OUTPATIENT ESTABLISHED MOD MDM 30 MIN RI AEROSOL PENTAMADINE Self Pulmonary Medicine [address] [address] Phone: tel: Referral ID Status Reason Start Date Expiration Date Visits Re quested Visits Authorized [id number] Closed 12/24/2024 10/05/2025 1 1 Reason Onset Date Comments Refill Request 12/31/2024 Reason Comments 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 - Other RX Refill Reason Comments 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 - Other Symptoms Scheduled Active and Recently Administ ered Medications (unrecognized section and content) Medication Order 06/06/2024 06/07/2024 06/08/2024 acetaminophen 650 mg tab(s) (TYLENOL) 650 mg, ORAL, ONCE, 1 dose, On Fri06/08/24 at 1300, If ordered PRN for pain, patient/guardian may elect to receive this medication for higher pain levels INSTEAD of the opioid, if preferred: Yes 1300 (Due) methotrexate (PF) 15 mg, hydrocortisone sodium succinate (PF) 50 mg in NaCl (PF) 0.9% 3 mL (COMPLETED) INTRATHECAL, ONCE, 1 dose, On Fri06/08/24 at 0730, EXP: To be administered in IR Hazardous Chemotherapy Drug: Use appropriate PPE. For Intrathecal Use Only. Protect from Light. 1237 (Given by LIP - Provider: Maggie Cabello RN - Comment: Given by Kathy Krause, IR LILLIAN) NaCl 0.9% 500 mL iv bolus (COMPLETED) 500 mL, INTRAVENOUS, at 999 mL/hr, Administer over 0.5 Hours, ONCE, 1 dose, On Fri06/08/24 at 1200 1200 (New Bag/Syring e/Bottle - Provider: Juanis Esqueda RN) ondansetron (PF) 4 mg injection (ZOFRAN) (COMPLETED) 4 mg, INTRAVENOUS, ONCE, 1 dose, On Fri06/08/24 at 1200, Give IV push over 2 minutes 1200 (Given - Provid er: Juanis Esqueda RN) PRN Medication Order 06/06/2024 06/07/2024 06/08/2024 sodium chloride 0.9 % (flush) 10-20 mL (BD POSIFLUSH) 10-20 mL, INTRAVENOUS, NEEDED, Starting on Fri06/08/24 at 1129, Until Fri06/09/24 at 0304, See Administration Instructions, If no IVAD access, may place IV if needed for labs or possible treatment. Flush 10-20ml on IV start and as needed. D5W or LR may be used in place of NS for medication that are incompatible (i.e. with oxaliplatin). sodium chloride 0.9 % (flush) 10-20 mL (BD POSIFLUSH) 10-20 mL, INTRAVENOUS, DIRECTED NEEDED, Starting on Fri06/08/24 at 1129, Until Fri06/09/24 at 0304, See Administration Instructions, Upon IVAD de-access or post blood draw the IVAD should be flushed with 20 mL of 0.9% NaCl using push/pause method. Normal saline flush every 12 weeks when not being used. Scheduled Medication Order 08/04/2024 08/05/2024 08/06/2024 methotrexate (PF) 15 mg, hydrocortisone sodium succinate (PF) 50 mg in NaCl (PF) 0.9% 3 mL (COMPLETED) INTRATHECAL, ONCE, 1 dose, On Fri08/06/24 at 0900, EXP: To be administered in IR Hazardous Chemotherapy Drug: Use appropriate PPE. For Intrathecal Use Only. Protect from Light., Intraprocedure 1343 (Given by LIP - Provider: Maggie Cabello RN - Comment: Given by Irwin Pinzon, IR LILLIAN) NaCl 0.9% 500 mL iv bolus (COMPLETED) 500 mL, INTRAVENOUS, at 999 mL/hr, Administer over 0.5 Hours, ONCE, 1 dose, On Fri08/06/24 at 1330 1310 (New Bag/Syring e/Bottle - Provider: Maggie Cabello RN) ondansetron (PF) 4 mg injection (ZOFRAN) (COMPLETED) 4 mg, INTRAVENOUS, ONCE, 1 dose, On Fri08/06/24 at 1330, Give IV push over 2 minutes 1310 (Given - Provid er: Maggie Cabello RN) Scheduled Medication Order 09/04/2024 09/05/2024 09/06/2024 methotrexate (PF) 15 mg, hydrocortisone sodium succinate (PF) 50 mg in NaCl (PF) 0.9% 3 mL (COMPLETED) INTRATHECAL, ONCE, 1 dose, On Fri09/06/24 at 1000, EXP: To be administered in IR Hazardous Chemotherapy Drug: Use appropriate PPE. For Intrathecal Use Only. Protect from Light., Intraprocedure 1106 (Given by LIP - Provider: Keyona Murphy RN - Comment: Given by Amie CAMPOS) NaCl 0.9% 500 mL iv bolus (COMPLETED) 500 mL, INTRAVENOUS, at 999 mL/hr, Administer over 0.5 Hours, ONCE, 1 dose, On Fri09/06/24 at 1030 1030 (New Bag/Syring e/Bottle - Provider: Ashwini Fleming RN) ondansetron (PF) 4 mg injection (ZOFRAN) (COMPLETED) 4 mg, INTRAVENOUS, ONCE, 1 dose, On Fri09/06/24 at 1030, Give IV push over 2 minutes 1030 (Given - Provid er: Ashwini Fleming RN) PRN Medication Order 09/04/2024 09/05/2024 09/06/2024 lidocaine (PF) 10 mg/mL (1 %) injection (XYLOCAINE) (CANCELED) SUBCUTANEOUS, X (OR/PROCEDURE) PRN, Starting on Fri09/06/24 at 1056, Until Fri09/06/24 at 1121, Intraprocedure 1056 (Given - Provid er: Amie Tran PA-C) FOR RECORDS PERTAINING TO PATIENTS WHO ARE OR HAVE BEEN ENROLLED IN A CHEMICAL DEPENDENCY/SUBSTANCEABUSE PROGRAM, SOME INFORMATION MAY BE OMITTED. This clinical summary was aggregated from multiple sources. Caution should be exercised in using it in the provision of clinical care. This summary normalizes information from multiple sources, and as a consequence, information in this document may materially change the coding, format and clinical context of patient data. In addition, data may be omitted in some cases. CLINICAL DECISIONS SHOULD BE BASED ON THE PRIMARY CLINICAL RECORDS. [facility]. provides no warranty or guarantee of the accuracy or completeness of information in this document.
[2025-01-04 00:17] VITALS: BP 132/81; PULSE 108; TEMP 36.7; O2SAT 92
--- NOTE | 2025-01-04 00:17 | PC.NURSE ---
report given to [facility] and then called to [facility] RN. pt denies needs at this time and receiving RN had no further questions.
== END 2025-01-04 00:05 | disposition short-term general hospital (02) ==
LOC: ER 21:20 → MS 22:06
PROVIDERS: Emergency Medicine; Admitting Provider Family Medicine; Emergency Provider Emergency Medicine; PCP Family Medicine; Visit Provider Family Medicine
DX: I31.39 Other pericardial effusion (noninflammatory) (principal); R07.9 Chest pain, unspecified; R06.02 Shortness of breath; C83.50 Lymphoblastic (diffuse) lymphoma, unspecified site; Z79.01 Long term (current) use of anticoagulants; Z90.710 Acquired absence of both cervix and uterus; R91.8 Other nonspecific abnormal finding of lung field
CPT/HCPCS: 36415; 71045; 71275; 80048; 84484; 85025; 85027; 87040; 93005; 94761; 96374; 96375; 99285; G0378; J2270; J2405; Q9967